=== PATIENT | male | born 1955 | race Asian ===

== ENCOUNTER 2017-01-12 06:38 | Emergency (ER) | payer OTHER ==
[2017-01-12 06:49] VITALS: TEMP 98.4; BMI 25.7
[2017-01-12] MEDS ORDERED: ALBUTEROL SO4 2.5/IPRATROPIUM 0.5 INH SOL 3 ML VIAL.NEB. NEB ONE ×2 (07:45→10:24)
[2017-01-12] MEDS ORDERED: methylPREDNISolone NA SUCC 125 MG/2 ML VIAL IVPB ONE (07:45)
--- NOTE | 2017-01-12 07:55 | PDOC ---
History of Present Illness - General Chief Complaint: Respiratory Stated Complaint: TROUBLE BREATHING Time Seen by Provider: 01/12/17 07:18 History Source: Patient Exam Limitations: No Limitations - History of Present Illness Initial Comments: 01/12/17 08:02 61-year-old male with increasing dry to moist cough for the past month associated with muscle skeletal pain to his mid back causing him difficulty to sleep at night. Patient states had seen a pattern drafter with a CAT scan done in November that showed bronchiolectasis vs pulmonary fibrosis and is currently under the care of a pattern drafter at [facility]. Patient states went last week and had a PFT and was placed on a new medication that states has actually increased his symptoms but continues to take the medication. Patient also states is pending a nebulizer machine from his pattern drafter but did not receive it yet from the pharmacy. Patient denies chest pain, shortness of breath of breath, hemoptysis, weight loss, night sweats, abdominal pain, nausea, lower extremity edema, fever or chills. Patient states history of diabetes and had a PE 2 years ago and stopped taking anticoagulation therapy 2015. Timing/Duration: reports: getting worse Severity: reports: moderate Possible Cause: Yes: occasional episodes Modifying Factors: improves with: coughing Associated Symptoms: reports: cough, shortness of breath (with exertion) Past History - Past Medical History Allergies/Adverse Reactions: Allergies Allergy/AdvReac Type Severity Reaction Status Date / Time enalapril Allergy Verified 01/12/17 06:48 metformin Allergy Verified 01/12/17 07:02 Home Medications: Ambulatory Orders Albuterol Sulfate Inhaler - [Ventolin Hfa Inhaler -] 2 inh PO Q6H 01/12/17 Calcium Carbonate/Vitamin D3 [Calcium 500 + Vit D 200 Caplet] 1 each PO DAILY Etanercept [Enbrel] 50 mg SQ WEEKLY 01/12/17 Fluticasone Propionate [Flovent Diskus] 110 mcg IH DAILY 01/12/17 Hydrochlorothiazide [Hctz -] 12.5 mg PO DAILY 01/12/17 Insulin Glargine,Hum.rec.anlog [Basaglar Kwikpen U-100] 25 unit SQ BID 01/12/17 Methylprednisolone [Medrol -] 4 mg PO DAILY 01/12/17 Metoprolol Succinate [Toprol Xl] 50 mg PO DAILY 01/12/17 Omeprazole 20 mg PO DAILY 01/12/17 Simvastatin [Zocor] 10 mg PO HS 01/12/17 Asthma: Yes Diabetes: Yes (type 2) GI Disorders: Yes (GERD,HERNIA) HTN: Yes Hypercholesterolemia: Yes Other medical history: PE in lung 2015 - Psycho/Social/Smoking Cessation Hx Suicidal Ideation: No Smoking History: Never smoked Have you smoked in the past 12 months: No Information on smoking cessation initiated: No Hx Alcohol Use: No Drug/Substance Use Hx: No Substance Use Type: None Patient Lives Alone: No Lives with/in: spouse/SO Respiratory Specific PMHX - Complaint Specific PMHX Pulmonary Embolus: Yes Review of Systems - Review of Systems Able to Perform ROS?: Yes Constitutional: No: Symptoms Reported HEENTM: No: Symptoms Reported Respiratory: Yes: Cough, SOB with Exertion. No: Wheezing Cardiac (ROS): No: Symptoms Reported ABD/GI: No: Symptoms Reported : No: Symptoms Reported Musculoskeletal: Yes: Back Pain (bilateral lower ribs) Neurological: No: Symptoms reported Hematologic/Lymphatic: No: Symptoms Reported *Physical Exam - Vital Signs Last Vital Signs Temp Pulse Resp BP Pulse Ox 98.4 F 90 18 168/74 100 01/12/17 06:47 01/12/17 06:47 01/12/17 06:47 01/12/17 06:47 01/12/17 06:50 - Physical Exam General Appearance: Yes: Nourished, Appropriately Dressed. No: Apparent Distress Neck: positive: Supple Respiratory/Chest: positive: Lungs Clear, Crackles (scattered on inspiration). negative: Chest Tender, Respiratory Distress, Accessory Muscle Use, Decreased Breath Sounds Cardiovascular: positive: Regular Rhythm, Regular Rate. negative: Murmur Gastrointestinal/Abdominal: positive: Soft. negative: Tenderness Extremity: positive: Normal Capillary Refill. negative: Pedal Edema Integumentary: positive: Normal Color, Warm, Moist Neurologic: positive: Motor Strength 5/5 (ambulatory) ED Treatment Course - LABORATORY CBC & Chemistry Diagram: 01/12/17 07:55 01/12/17 07:55 - RADIOLOGY Radiology Studies Ordered: Category Date Time Status CHEST X-RAY PORTABLE* [RAD] Stat Radiology 01/12/17 07:45 Ordered Medical Decision Making - Medical Decision Making 01/12/17 08:00 Patient with increasing cough over the past few days causing him difficulty sleeping. Patient with history of PE 2 years ago but recently diagnosed with pulmonary fibrosis based on CT and PFT findings. Patient states also has been worked up for TB, HIV and other communicable diseases which were negative. Patient states could not wait for his nebulizer machine this evening when is due to arrive from the pharmacy and decided come to the ER since he states is unable to sleep and has continual coughing. Patient currently on medication for the past week which he states has not improved his symptoms if anything has increased his coughing. Patient on exam had instant dry crackles scattered to bilateral lung ruiz patient on room air satting 97-100% with a heart rate of 79. Differential diagnosis includes pneumonia, CHF, ACS, and less likely PE. 01/12/17 10:24 Laboratory Tests 01/12/17 01/12/17 07:55 07:55 WBC 12.3 H Hgb 12.7 Hct 39.1 Plt Count 194 Sodium 137 Potassium 3.6 Chloride 103 Carbon Dioxide 25 Anion Gap 9 BUN 14 Creatinine 1.2 Random Glucose 299 H Calcium 8.3 L Magnesium 2.0 AST 25 ALT 36 Creatine Kinase 217 Creatine Kinase Index 1.8 CK-MB (CK-2) 3.967 H Troponin I < 0.02 B-Natriuretic Peptide 54.07 Albumin 3.1 L Patient states feeling much better after receiving this medication. Call placed to patient's pattern drafter. Patient disclosed that he is currently on day 2 of 7 of Cipro that was prescribed by his pattern drafter yesterday. Patient vitals remained stable. Patient ordered for second duo neb since he states is able expectorate the mucus much easier. Mucous color consistency is semi-thin and beige. 01/12/17 11:00 Case discussed the patient's pattern drafter Dr. Villanueva who recommended sputum culture along with teaching for Postural drainage. Order placed for sputum culture. Respiratory called for teaching. Patient will be discharged home to follow-up with his pattern drafter. Will repeat vitals *DC/Admit/Observation/Transfer Diagnosis at time of Disposition: Cough Bronchiectasis Qualifiers: Bronchiectasis type: with acute exacerbation Qualified Code(s): J47.1 - Bronchiectasis with (acute) exacerbation - Discharge Dispostion Disposition: HOME Condition at time of disposition: Improved - Referrals Referrals: Amy Kamara MD [Primary Care Provider] - Radha Villanueva MD [Non Staff, Medical] - - Patient Instructions Printed Discharge Instructions: DI for Cough -- Adult Additional Instructions: Please follow-up with your pattern drafter as discussed, continue your Cipro, and perform postural drainage exercises as demonstrated here in the emergency department by a respiratory therapist.
[2017-01-12] MEDS ORDERED: methylPREDNISolone NA SUCC 125 MG/2 ML VIAL ONE (08:02)
[2017-01-12 08:35] LABS: BASOPHIL 1.2 % (0-2.0); EOSINOPHIL 2.3 % (0-4.5); MCH 26.3 pg (25.7-33.7); MCHC 32.5 g/dl (32.0-35.9); MEAN CELL VOLUME 81.1 fl (80-96); NEUTROPHILS 65.5 % (42.8-82.8); PLATELET COUNT 194 K/MM3 (134-434); WHITE BLOOD COUNT 12.3 K/mm3 (4.0-10.0)
[2017-01-12 09:04] LABS: ALBUMIN 3.1 g/dl (3.4-5.0); ANION GAP 9 (8-16); BILIRUBIN,TOTAL 0.8 mg/dL (0.2-1.0); CALCIUM 8.3 mg/dL (8.5-10.1); CO2 25 mmol/L (21-32); CREATININE 1.2 mg/dL (0.7-1.3); GLUCOSE,RANDOM 299 mg/dL (74-106); SGOT/AST 25 U/L (15-37); SGPT/ALT 36 U/L (12-78); TOT PROT 6.6 g/dl (6.4-8.2)
[2017-01-12 09:07] LABS: ALK PHOS 63 U/L (45-117); TROPONIN I < 0.02 ng/ml (0.00-0.05)
--- NOTE | 2017-01-12 10:59 | PDOC ---
*Physical Exam - Vital Signs Last Vital Signs Temp Pulse Resp BP Pulse Ox 98.4 F 67 22 127/76 98 01/12/17 06:47 01/12/17 07:55 01/12/17 07:55 01/12/17 07:55 01/12/17 07:55 ED Treatment Course - LABORATORY CBC & Chemistry Diagram: 01/12/17 07:55 01/12/17 07:55 - ADDITIONAL ORDERS Additional order review: Laboratory Results 01/12/17 07:55 Sodium 137 Potassium 3.6 Chloride 103 Carbon Dioxide 25 Anion Gap 9 BUN 14 Creatinine 1.2 Creat Clearance w eGFR > 60 Random Glucose 299 H Calcium 8.3 L Magnesium 2.0 Total Bilirubin 0.8 AST 25 ALT 36 Alkaline Phosphatase 63 Creatine Kinase 217 Creatine Kinase Index 1.8 CK-MB (CK-2) 3.967 H Troponin I < 0.02 B-Natriuretic Peptide 54.07 Total Protein 6.6 Albumin 3.1 L 01/12/17 07:55 RBC 4.83 MCV 81.1 MCHC 32.5 RDW 15.0 MPV 10.0 Neutrophils % 65.5 Lymphocytes % 22.3 Monocytes % 8.7 Eosinophils % 2.3 Basophils % 1.2 - Medications Given in the ED: ED Medications Discontinued Medications Generic Name Dose Route Start Last Admin Trade Name Freq PRN Reason Stop Dose Admin Albuterol/Ipratropium 1 amp 01/12/17 07:45 01/12/17 07:55 Duoneb - NEB 01/12/17 07:46 1 amp ONCE ONE Administration Methylprednisolone Sodium Succinate 125 mg 01/12/17 07:45 01/12/17 08:03 Solu-Medrol - IVPB 01/12/17 07:46 125 mg ONCE ONE Administration Medical Decision Making - Medical Decision Making 01/12/17 10:57 Patient seen and evaluated with the nurse practitioner. I agree with the overall evaluation, assessment, and management with the following summary of visit: 61-year-old male with recently diagnosed pulmonary fibrosis presents with persisting cough. Vital signs normal, O2 sat 100% on room air. Chest x-ray shows no acute pathology, labs are within normal limits with only mild leukocytosis of 12.3 but normal differential. Symptoms improved after 2 nebs, disposition plan arranged with patient's distribution system operator.
[2017-01-12 12:45] VITALS: BP 105/73; PULSE 90
--- NOTE | 2017-01-12 14:39 | EKG ---
Test Reason : Blood Pressure : / mmHG Vent. Rate : 073 BPM Atrial Rate : 073 BPM P-R Int : 168 ms QRS Dur : 104 ms QT Int : 396 ms P-R-T Axes : 056 -54 -11 degrees QTc Int : 436 ms NORMAL SINUS RHYTHM LEFT ANTERIOR FASCICULAR BLOCK ABNORMAL ECG NO PREVIOUS ECGS AVAILABLE Confirmed by DARLENE WOODALL MD ([id number]) on 01/12/2017 2:39:03 PM Referred By: Confirmed By:DARLENE WOODALL MD
== END 2017-01-12 12:45 | disposition home or self-care (01) ==
LOC: JER 06:38
PROC: 3E0F7GC Introduction of Other Therapeutic Substance into Respiratory Tract, Via Natural or Artificial Opening (ICD-10-PCS; principal; 2017-01-12)
PROC: 3E033GC Introduction of Other Therapeutic Substance into Peripheral Vein, Percutaneous Approach (ICD-10-PCS; 2017-01-12)
DX: J47.1 Bronchiectasis with (acute) exacerbation (principal); R05 Cough; K21.9 Gastro-esophageal reflux disease without esophagitis; J45.909 Unspecified asthma, uncomplicated; I10 Essential (primary) hypertension; E78.00 Pure hypercholesterolemia, unspecified; E11.9 Type 2 diabetes mellitus without complications
CPT/HCPCS: 36415; 71010-TC; 80053; 82550; 82553; 83735; 83880; 84484; 85025; 87070; 87205; 93005; 93010; 94640; 96374; 99284-25

== ENCOUNTER 2018-04-27 11:27 | Observation (INO) | payer OTHER ==
--- NOTE | 2018-04-27 11:54 | PDOC ---
History of Present Illness - General Chief Complaint: Pain Stated Complaint: NECK PAIN Time Seen by Provider: 04/27/18 11:51 - History of Present Illness Initial Comments: Patient is a 63 yo M w/ a hx of RA on steroids, DM, pulmonary embolism (x2) ( 2014 and 03/17/2018) s/p sternotomy, GERD, HTN, HLD and hiatal hernia, who presents to the ED complaining of Severe R sided neck pain. The pain began last night at 5 PM while the patient was sitting down on a chair. It was mild at first but significantly worsened. Now in the ED the patient is in significant pain and screaming in the bed to make it go away. He denies any recent trauma. Denies recent fevers, chills or infections. Denies chest pain, SOB or difficulty breathing. Denies abdominal pain, denies urinary or bowel complaints. PCP: Kriss Fisher Social hx: Denies alcohol, cigarrettes, or illicit drug usage. Past History - Past Medical History Allergies/Adverse Reactions: Allergies Allergy/AdvReac Type Severity Reaction Status Date / Time enalapril Allergy Verified 04/27/18 11:44 metformin Allergy Verified 04/27/18 11:44 Home Medications: Ambulatory Orders Albuterol Sulfate Inhaler - [Ventolin Hfa Inhaler -] 1 - 2 inh PO BID 04/27/18 Aspirin 81 mg PO DAILY 04/27/18 Docusate Sodium [Colace] 100 mg PO BID 04/27/18 Fluticasone/Salmeterol [Advair 250-50 Diskus] 1 each IH BID 04/27/18 Insulin Lispro [Admelog] 22 unit SQ TID 04/27/18 Linaclotide [Linzess] 72 mcg PO DAILY 04/27/18 Methylprednisolone [Medrol -] 4 mg PO DAILY 04/27/18 Metoprolol Tartrate 25 mg PO BID 04/27/18 Omeprazole 40 mg PO DAILY 04/27/18 Warfarin Sodium 2.5 mg PO DAILY 04/27/18 Asthma: Yes CVA: No COPD: No Diabetes: Yes (type 2) GI Disorders: Yes (GERD,HERNIA) HTN: Yes Hypercholesterolemia: Yes - Suicide/Smoking/Psychosocial Hx Smoking History: Never smoked Have you smoked in the past 12 months: No Hx Alcohol Use: No Drug/Substance Use Hx: No Substance Use Type: None Review of Systems - Review of Systems Constitutional: Yes: Weakness. No: Fever, Unintentional Wgt. Loss HEENTM: No: Eye Pain, Blurred Vision, Recent change in vision, Double Vision, Nose Congestion, Difficulty Swallowing Respiratory: No: Cough, Orthopnea, Shortness of Breath, Wheezing Cardiac (ROS): No: Chest Pain, Edema, Lightheadedness, Syncope ABD/GI: No: Abdominal Distended, Constipated, Diarrhea, Difficulty Swallowing, Nausea, Vomiting : No: Burning, Dysuria, Frequency, Flank Pain Musculoskeletal: Yes: Back Pain, Muscle Pain, Neck Pain. No: Joint Swelling, Muscle Weakness Integumentary: No: Bruising, Change in Color, Pruritus, Rash Neurological: Yes: Weakness. No: Headache, Numbness, Paresthesia, Pre-Existing Deficit, Seizure, Tingling, Tremors, Unsteady Gait, Ataxia, Dizziness Psychiatric: No: Anxiety, Depression Endocrine: No: Excessive Sweating, Flushing, Intolerance to Cold Hematologic/Lymphatic: Yes: Anemia, Blood Clots, Easy Bleeding *Physical Exam - Vital Signs Last Vital Signs Temp Pulse Resp BP Pulse Ox 98.3 F 97 H 18 147/92 98 04/27/18 11:41 04/27/18 11:41 04/27/18 11:41 04/27/18 11:41 04/27/18 11:41 - Physical Exam General Appearance: Yes: Nourished, Appropriately Dressed, Apparent Distress, Severe Distress HEENT: positive: EOMI, BONNIE, Normal ENT Inspection, Normal Voice, Symmetrical. negative: Photophobia, Scleral Icterus (R), Scleral Icterus (L), Muffled/Hoarse voice, Pharyngeal Erythema, Tonsillar Exudate, Rhinorrhea Neck: positive: Tender, Trachea midline, Decreased range of motion, Tender lateral, Tender midline. negative: Lymphadenopathy (R), Lymphadenopathy (L) Respiratory/Chest: positive: Lungs Clear, Normal Breath Sounds. negative: Chest Tender, Respiratory Distress, Accessory Muscle Use Cardiovascular: positive: Regular Rhythm, Regular Rate, S1, S2. negative: Edema , JVD, Murmur Vascular Pulses: Dorsalis-Pedis (R): 1+, Doralis-Pedis (L): 1+ Gastrointestinal/Abdominal: positive: Normal Bowel Sounds, Soft. negative: Organomegaly, Distended, Guarding, Rebound Lymphatic: negative: Adenopathy Musculoskeletal: positive: Normal Inspection, Vertebral Tenderness ([place] axial TTP). negative: CVA Tenderness, Decreased Range of Motion Extremity: positive: Normal Capillary Refill, Normal Inspection, Normal Range of Motion Integumentary: positive: Normal Color, Dry, Warm. 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 negative: Abnormal Cranial NS, EOM Palsy, Facial Droop, Numbness, Sensory Deficit, Confused, Disoriented ED Treatment Course - LABORATORY CBC & Chemistry Diagram: 04/27/18 11:20 04/27/18 16:21 Medical Decision Making - Medical Decision Making Patient is a 63 yo M w/ a hx of RA on steroids, DM, pulmonary embolism (x2) ( 2014 and 03/17/2018) s/p sternotomy, GERD, HTN, HLD and hiatal hernia, who presents to the ED complaining of Severe R sided neck pain. He takes 40 Mg of steroids daily. Highest on DD is compression fraxture. Will get Stat head and cervical CT to assess for a compression fx. Plan: Cbc, cmp, head/neck, CT, morphine, re-assess. Head CT showed no signs of acute fracture. Oatient is requesting food to eat and more comfortable after morphine. The neck pain is more likely secondary to torticolis. Labs showed a significant hypokalemia of 2.8. We will repeat, replete, and admit to obs. *DC/Admit/Observation/Transfer Diagnosis at time of Disposition: Torticollis, Hypokalemia - Discharge Dispostion Condition at time of disposition: Stable Decision to Admit order: Yes - Referrals - Patient Instructions - Post Discharge Activity
[2018-04-27] MEDS ORDERED: morphine CARPU-JECT 4 MG/1 ML DISP.SYRIN IVPUSH ONE ×2 (12:11→16:08)
[2018-04-27] MEDS ORDERED: morphine SULFATE 4 MG/ML VIAL ONE ×2 (12:13→16:08)
--- NOTE | 2018-04-27 12:24 | PDOC ---
Attending Attestation - HPI HPI: Patient is a 63 year old male with PMHx of rheumatoid arthritis (4 mg Medrol daily) T2DM, HTN, asthma, multiple PEs , DVT- LT leg (on Coumadin), GERD, and HLD, who presents with chest and neck pain since yesterday. Patient states that around 5:00pm he was sitting on chair (denies prior exertion) when he began experiencing sudden-onset right-sided neck pain. He states that he took 2 Tylenol without relief. He states the pain significantly worsened today and has not radiated to the left side and back of his neck. He is currently in a hard cervical collar and is unable to turn his head without significant pain. He also reports intermittent chest pain. Patient denies recent shortness of breath, fever, weakness, acute numbness, tingling, or paresthesias. Surgical Hx: Thrombectomy (Mar 17 2018) s/p PE. PCP: Dr. Kriss Fisher <Shwetha Stock - Last Filed: 04/27/18 13:02> - Resident Resident Name: Dayo Jama - ED Attending Attestation I have performed the following: I have examined & evaluated the patient, The case was reviewed & discussed with the resident, I agree w/resident's findings & plan, Exceptions are as noted <Stanton Chavez - Last Filed: 05/04/18 16:59>
[2018-04-27 12:41] LABS: BASO % 1.2 % (0-2.0); EOS % 1.5 % (0-4.5); HEMATOCRIT 29.8 % (35.4-49); LYMPH % 10.6 % (8-40); MCH 23.5 pg (25.7-33.7); MCHC 30.3 g/dl (32.0-35.9); MEAN CELL VOLUME 77.3 fl (80-96); MEAN PLT VOLUME 6.8 fl (7.5-11.1); MONO % 8.8 % (3.8-10.2); NEUT % 77.9 % (42.8-82.8); PLATELET COUNT 580 K/MM3 (134-434); RBC 3.85 M/mm3 (4.00-5.60); RDW 16.5 % (11.9-15.9); WHITE BLOOD COUNT 13.3 K/mm3 (4.0-10.0)
[2018-04-27 12:58] LABS: ALBUMIN 3.4 g/dl (3.4-5.0); ALK PHOS 77 U/L (45-117); ANION GAP 11 MMOL/L (8-16); BILIRUBIN,TOTAL 0.6 mg/dL (0.2-1); BLOOD UREA NITROGEN 5 mg/dL (7-18); CALCIUM 8.4 mg/dL (8.5-10.1); CHLORIDE 110 mmol/L (98-107); CO2 19 mmol/L (21-32); CREATININE 0.9 mg/dL (0.55-1.3); GLUCOSE,RANDOM 72 mg/dL (74-106); SGOT/AST 32 U/L (15-37); SGPT/ALT 31 U/L (13-61); SODIUM 140 mmol/L (136-145); TOT PROT 7.4 g/dl (6.4-8.2)
[2018-04-27 13:02] LABS: POTASSIUM 2.7 mmol/L (3.5-5.1)
[2018-04-27] MEDS ORDERED: POTASSIUM CHLORIDE TABS 20 MEQ TABLET.ER (FP) PO ONE ×4 (13:03→16:09)
[2018-04-27] MEDS ORDERED: POTASSIUM CHLORIDE 20 MEQ PREMIX IVPB 100 ML IVPB ONE (13:51)
[2018-04-27] MEDS ORDERED: KCL 10 MEQ IVPB 20 MEQ/200 ML INFUS.BAG IVPB ONE (13:58)
[2018-04-27] MEDS ORDERED: diazePAM 2 MG TABLET PO ONE (14:44)
[2018-04-27] MEDS ORDERED: diazePAM 2 MG TABLET ONE (14:49)
[2018-04-27] MEDS ORDERED: ACETAMINOPHEN 325 MG TABLET (FP) PO PRN (15:34)
--- NOTE | 2018-04-27 15:43 | HP ---
CHIEF COMPLAINT: R sided neck pain PCP: Phillip HISTORY OF PRESENT ILLNESS: 63 year old male with a history of RA on steroids, diabetes, DVT (left leg) and PE x 2 (2014 and 03/17/18) s/p sternotomy, GERD, HTN, HLD, hiatal hernia, pancreatitis, presents ot the hospital for 1 day history of 10/10 right sided neck pain. Per patient and son, patient took a nap between 2pm and 5pm last night, and when he woke up he had excruciating, stabbing pain on the R side of his neck, being unable to flex, extend, move his head from side to side, or rotate in either direction. Reports that he has never had this pain in the past. Reports that it got worse since yesterday. Patient reports 3 loose stools yesterday he attributes to taking stool softeners. Denies chest pain, shortness of breath, nausea, vomiting, fevers, chills. Denies sick contacts or recent travel. Reports that his last colonoscopy was in 2014 with Ranulfo. ER course was notable for: (1) K 2.7 (2) Hgb 9 (3) WBC 13.3 (4) EKG NSR with LAD Recent Travel: denies PAST MEDICAL HISTORY: RA on steroids, diabetes, PE x 2 (2014 and 03/17/18) s/p sternotomy, GERD, HTN, HLD, hiatal hernia, pancreatitis PAST SURGICAL HISTORY: Sternotomy Social History: Smoking: denies Alcohol: denies Drugs: denies Family History: denies family history of cancer Allergies enalapril Allergy (Verified 04/27/18 11:44) metformin Allergy (Verified 04/27/18 11:44) HOME MEDICATIONS: Home Medications Medication Instructions Recorded Albuterol Sulfate Inhaler - 1 - 2 inh PO BID 04/27/18 [Ventolin Hfa Inhaler -] Aspirin 81 mg PO DAILY 04/27/18 Docusate Sodium [Colace] 100 mg PO BID 04/27/18 Fluticasone/Salmeterol [Advair 1 each IH BID 04/27/18 250-50 Diskus] Insulin Lispro [Admelog] 22 unit SQ TID 04/27/18 Linaclotide [Linzess] 72 mcg PO DAILY 04/27/18 Methylprednisolone [Medrol -] 4 mg PO DAILY 04/27/18 Metoprolol Tartrate 25 mg PO BID 04/27/18 Omeprazole 40 mg PO DAILY 04/27/18 Warfarin Sodium 2.5 mg PO DAILY 04/27/18 REVIEW OF SYSTEMS CONSTITUTIONAL: Absent: fever, chills, diaphoresis, generalized weakness, malaise, loss of appetite, weight change HEENT: Neck Pain Absent: rhinorrhea, nasal congestion, throat pain, throat swelling, difficulty swallowing, mouth swelling, ear pain, eye pain, visual changes CARDIOVASCULAR: Absent: chest pain, syncope, palpitations, irregular heart rate, lightheadedness , peripheral edema RESPIRATORY: Absent: cough, shortness of breath, dyspnea with exertion, orthopnea, wheezing, stridor, hemoptysis GASTROINTESTINAL: Absent: abdominal pain, abdominal distension, nausea, vomiting, diarrhea, constipation, melena, hematochezia GENITOURINARY: Absent: dysuria, frequency, urgency, hesitancy, hematuria, flank pain, genital pain MUSCULOSKELETAL: Absent: myalgia, arthralgia, joint swelling, back pain, neck pain SKIN: Absent: rash, itching, pallor HEMATOLOGIC/IMMUNOLOGIC: Absent: easy bleeding, easy bruising, lymphadenopathy, frequent infections ENDOCRINE: Absent: unexplained weight gain, unexplained weight loss, heat intolerance, cold intolerance NEUROLOGIC: Absent: headache, focal weakness or paresthesias, dizziness, unsteady gait, seizure, mental status changes, bladder or bowel incontinence PSYCHIATRIC: Absent: anxiety, depression, suicidal or homicidal ideation, hallucinations. PHYSICAL EXAMINATION Vital Signs - 24 hr 04/27/18 04/27/18 11:41 15:41 Temperature 98.3 F 99.4 F Pulse Rate 97 H Pulse Rate [ 98 H Apical] Respiratory 18 20 Rate Blood Pressure 147/92 Blood Pressure 140/74 [Right] O2 Sat by Pulse 98 98 Oximetry (%) GENERAL: A&Ox3, mild distress EYES: PERRLA, EOMI ENT: Moist mucus membranes NECK: No JVD, patient has restricted range of motion of his neck in flexion, extension, and rotation, restricted due to pain. Majority of the ROM is restricted in rotation. LUNGS: R sided crackles, no wheezes, Sternotomy scar present HEART: RRR, no murmurs ABDOMEN: Soft, nontender, BS present MUSCULOSKELETAL: No CVA Tenderness EXTREMITIES: 2+ pulses, 1+ edema NEUROLOGICAL: Cranial nerves II-XII intact. Laboratory Results - last 24 hr 04/27/18 04/27/18 11:20 11:20 WBC 13.3 H RBC 3.85 L Hgb 9.0 L Hct 29.8 L MCV 77.3 L MCH 23.5 L D MCHC 30.3 L RDW 16.5 H Plt Count 580 H D MPV 6.8 L Absolute Neuts (auto) 10.3 H Neutrophils % 77.9 Lymphocytes % 10.6 D Monocytes % 8.8 Eosinophils % 1.5 Basophils % 1.2 Nucleated RBC % 0 Sodium 140 Potassium 2.7 L* Chloride 110 H Carbon Dioxide 19 L Anion Gap 11 BUN 5 L Creatinine 0.9 Creat Clearance w eGFR > 60 Random Glucose 72 L Calcium 8.4 L Magnesium 2.0 Total Bilirubin 0.6 AST 32 ALT 31 Alkaline Phosphatase 77 Total Protein 7.4 Albumin 3.4 ASSESSMENT/PLAN: 63 year old male with a history of RA on steroids, diabetes, DVT (left leg) and PE x 2 (2014 and 03/17/18) s/p sternotomy, GERD, HTN, HLD, hiatal hernia, pancreatitis presented to the hospital for R sided neck pain #R sided neck pain: could be related to muscle spasm/torticollis -flexeril 5mg PO TID -morphine 2mg PRN -physical therapy #Hypokalemia: initial potassium was 2.7, repeat K 4.0 -give 40mEQ -EKG NSR LAD #Anemia: Hgb 9.0 -stool for occult blood -last colo 2014 -likely iron deficiency vs chronic inflammation -INR level #RA: controlled -continue methylprenisolone #HTN: stable, 140/74 -resume metoprolol 25 BID #PE: s/p open thrombectomy, stable -continue warfarin 2.5 -measure INR #FEN -LR @ 83cc/hr 1 bag -diabetic diet -replete potassium #Prophylaxis -on coumadin 2.5 #Disposition -admit obs Visit type - Emergency Visit Emergency Visit: Yes ED Registration Date: 04/27/18 Care time: The patient presented to the Emergency Department on the above date and was hospitalized for further evaluation of their emergent condition. - New Patient This patient is new to me today: Yes Date on this admission: 04/27/18 - Critical Care Critical Care patient: No
[2018-04-27] MEDS ORDERED: ENOXAPARIN NA (PORCINE) 40 MG/0.4 ML DISP.SYRIN SQ SCH (15:45)
[2018-04-27] MEDS ORDERED: LACTATED RINGERS SOLUTION 1,000 ML IV SCH (15:45)
[2018-04-27] MEDS ORDERED: KCL 10 MEQ IVPB 10 MEQ/100 ML INFUS.BAG IVPB ONE ×5 (16:07→21:31)
[2018-04-27] MEDS ORDERED: morphine SULFATE 4 MG/ML VIAL IVPUSH ONE (16:08)
[2018-04-27] MEDS ORDERED: CYCLOBENZAPRINE HCL 10 MG TABLET (FP) ONE ×2 (16:38→20:40)
[2018-04-27] MEDS ORDERED: INSULIN (NOVOLOG) ASPART 100 UNITS/ML 10ML VIAL ONE ×2 (16:39→22:17)
[2018-04-27] MEDS: CYCLOBENZAPRINE HCL 5 MG TABLET PO SCH ×2 (16:41→21:06)
[2018-04-27 16:53] LABS: PROTHROMBIN TIME (PATIENT) 55.4 SEC (9.7-13.0)
[2018-04-27 16:57] LABS: ANION GAP 9 MMOL/L (8-16); BLOOD UREA NITROGEN 5 mg/dL (7-18); CALCIUM 8.4 mg/dL (8.5-10.1); CHLORIDE 105 mmol/L (98-107); CO2 21 mmol/L (21-32); CREATININE 0.9 mg/dL (0.55-1.3); GLUCOSE,RANDOM 211 mg/dL (74-106); SODIUM 135 mmol/L (136-145)
[2018-04-27] MEDS ORDERED: ALBUTEROL SO4 8 GM HFA INHALER IH PRN ×2 (16:59)
--- NOTE | 2018-04-27 17:05 | PN ---
Teaching Attending Note Name of Resident: Gopal Rosenbaum ATTENDING PHYSICIAN STATEMENT I saw and evaluated the patient. I reviewed the resident's note and discussed the case with the resident. I agree with the resident's findings and plan as documented. SUBJECTIVE:63yo M with PMH RA on steroids, DM, HTN, hiatal hernia, Recent PE on coumadin presented to the ER with sudden onset of R sided neck pain. started suddenly when getting out of chair. assoc with limited ROM. pain is limited to the neck and not radiating. relieved with muscle relaxer given in the ER. also reports he was constipated for several days and tooks some stool softeners and had several loose BM yesterday. denies CP, SOB, fever, chills, cough, hemoptysis , N/V/C/D OBJECTIVE: Last Vital Signs Temp Pulse Resp BP Pulse Ox 99.4 F 98 H 20 140/74 98 04/27/18 15:41 04/27/18 15:41 04/27/18 15:41 04/27/18 15:41 04/27/18 15:41 General NAD HEENT bone point tenderness in cervical spine. muscle point tenderness over the R side of neck. refused to move the neck side to side or ear to shoulder. no LN noted. no deformity, short neck, no tenderness to L side of neck CV S1 S2 RRR no murmur/rub/gallop Lungs CTA B/L no wheezing/rales/rhonchi Abdomen soft NT/ND Extremities strength equal in proximal and distal RUE. sensation intact. pulse intact. full ROM of the R shoulder. no pedal edema ASSESSMENT AND PLAN: 63yo M with PMH RA on steroids, DM, HTN, hiatal hernia, Recent PE on coumadin presented to the ER with sudden onset of R sided neck pain. 1. Intractable neck pain- medicine observation. appears to be more muscular. Imaging shows c5-C6 DJD with mild disc bulge. with no neurological deficits. start flexeril. cont with pain control prn. PT eval. would benefit from PT as outpatient and if does not improve can consider f/u [facility] neurosurg as outpatient for possible surgery 2. Hypokalemia- likely due to diarrhea. repleted in the ER. now normal 3. Supratherpeutic INR- no recent dose change or diet change. hold coumadin repeat in am. no bleeding 4. NAGMA- due to diarrhea. resolved after some LR 1L 5. Leukocytosis- due to steroids. no signs of active infection. no indication for abx 6. RA on steroids- cont home medication 7. DM- cont home medication 8. HTN- cont home medication 9. PE- hold coumadin. repeat INR in AM 10. DVT ppx- elevated INR 11. spoke with son present at bedside. all questions answered. verbalized agreement with plan
[2018-04-27 17:13] LABS: INR 4.62 (0.83-1.09)
[2018-04-27] MEDS: INSULIN SLIDING SCALE (NOVOLOG) 1 VIAL SQ SCH ×3 (17:34→22:10)
[2018-04-27] MEDS ORDERED: METOPROLOL TARTRATE 25 MG TABLET (FP) ONE (20:40)
[2018-04-27] MEDS ORDERED: MORPHINE SULFATE 2 MG/ML VIAL ONE (20:40)
[2018-04-27] MEDS: METOPROLOL TARTRATE 25 MG TABLET (FP) PO SCH (21:06)
[2018-04-27] MEDS: MORPHINE SULFATE 2 MG/ML VIAL IVPUSH PRN (21:06)
[2018-04-27] MEDS: POTASSIUM CHLORIDE 10 MEQ PREMIX IVPB (POTASSIUM RIDER) IVPB SCH ×2 (21:45→23:40)
[2018-04-27] MEDS ORDERED: ALBUTEROL SO4 8 GM HFA INHALER IH SCH (22:00)
[2018-04-27 22:29] LABS: ANION GAP 9 MMOL/L (8-16); BLOOD UREA NITROGEN 5 mg/dL (7-18); CALCIUM 7.9 mg/dL (8.5-10.1); CHLORIDE 107 mmol/L (98-107); CO2 17 mmol/L (21-32); GLUCOSE,RANDOM 280 mg/dL (74-106); POTASSIUM 4.9 mmol/L (3.5-5.1); SODIUM 132 mmol/L (136-145)
[2018-04-28] MEDS: MORPHINE SULFATE 2 MG/ML VIAL IVPUSH PRN ×3 (01:06→12:08)
[2018-04-28 01:36] VITALS: BMI 25.0
[2018-04-28] MEDS: INSULIN SLIDING SCALE (NOVOLOG) 1 VIAL SQ SCH ×3 (06:11→17:20)
[2018-04-28] MEDS: CYCLOBENZAPRINE HCL 5 MG TABLET PO SCH ×2 (06:16→13:01)
[2018-04-28 06:42] LABS: HEMATOCRIT 26.3 % (35.4-49); HEMOGLOBIN 8.2 GM/dL (11.7-16.9); MCHC 31.1 g/dl (32.0-35.9); MEAN CELL VOLUME 77.1 fl (80-96); MEAN PLT VOLUME 7.1 fl (7.5-11.1); PLATELET COUNT 489 K/MM3 (134-434); RBC 3.41 M/mm3 (4.00-5.60); RDW 17.2 % (11.9-15.9); WHITE BLOOD COUNT 12.9 K/mm3 (4.0-10.0)
[2018-04-28] MEDS ORDERED: PT OWN MED DRAWER 7, Y5N ONE ×5 (07:00→12:51)
[2018-04-28 07:02] LABS: PROTHROMBIN TIME (PATIENT) 62.8 SEC (9.7-13.0)
[2018-04-28 07:09] LABS: INR 5.23 (0.83-1.09)
[2018-04-28 07:10] LABS: ANION GAP 10 MMOL/L (8-16); BLOOD UREA NITROGEN 5 mg/dL (7-18); CALCIUM 8.2 mg/dL (8.5-10.1); CHLORIDE 102 mmol/L (98-107); CO2 20 mmol/L (21-32); CREATININE 0.7 mg/dL (0.55-1.3); GLUCOSE,RANDOM 209 mg/dL (74-106); MAGNESIUM 1.8 mg/dL (1.8-2.4); POTASSIUM 4.3 mmol/L (3.5-5.1); SODIUM 132 mmol/L (136-145)
[2018-04-28] MEDS: METOPROLOL TARTRATE 25 MG TABLET (FP) PO SCH (09:52)
[2018-04-28] MEDS ORDERED: PANTOPRAZOLE 40 MG TABLET (FP) PO SCH (10:00)
[2018-04-28] MEDS ORDERED: PATIENT'S OWN MEDICATION (NON-FORMULARY) (Linaclotide [Linzess] 72 MCG) PO SCH (10:00)
[2018-04-28] MEDS ORDERED: ASPIRIN 81 MG CHEWABLE TABLETS PO SCH (10:00)
[2018-04-28] MEDS ORDERED: methylPREDNISolone 4 MG TABLET PO SCH (10:00)
--- NOTE | 2018-04-28 12:56 | PN ---
Teaching Attending Note Name of Resident: Kimberley Horton ATTENDING PHYSICIAN STATEMENT I saw and evaluated the patient. I reviewed the resident's note and discussed the case with the resident. I agree with the resident's findings and plan as documented. SUBJECTIVE:states pain and movement of his head has improved but still restricted. denies Cp, SOB, fever, chills, numbness/tingling of the arms. states hes been on steady dose of coumadin for several weeks. he did take his medication yesterday. OBJECTIVE: Last Vital Signs Temp Pulse Resp BP Pulse Ox 98.8 F 97 H 20 128/68 97 04/28/18 10:00 04/28/18 10:00 04/28/18 10:00 04/28/18 10:00 04/28/18 10:00 General NAD HEENT bone point tenderness in cervical spine. muscle spasm along the R side of his neck. improved active movement of turning his head from side to side, still restricted more to the R then L. good ROM looking up/down. Extremities strength equal in proximal and distal RUE. sensation intact. pulse intact. ASSESSMENT AND PLAN: 63yo M with PMH RA on steroids, DM, HTN, hiatal hernia, Recent PE on coumadin presented to the ER with sudden onset of R sided neck pain. 1. Intractable neck pain-clinically improved but remains restricted. will increase flexeril to 10mg and re-evaluate to see if improved with higher dose. if no improvement can attempt alternative muscle relaxer. assess with PT. would benefit from PT as outpatient and if does not improve can consider f/u [facility] neurosurg as outpatient for possible surgery 2. Hypokalemia- likely due to diarrhea. resolved 3. Supratherpeutic INR- no recent dose change or diet change. did take his coumadin at home yesterday. will hold for now and trend INR. can re-start coumadin at lower dose once <3. 4. NAGMA- due to diarrhea. resolved 5. Leukocytosis- due to steroids. no signs of active infection. no indication for abx 6. RA on steroids- cont home medication 7. DM- cont home medication 8. HTN- cont home medication 9. PE- hold coumadin. 10. DVT ppx- elevated INR 11. possible D/c later today pending pain control and movement with PT
[2018-04-28] MEDS ORDERED: traMADol HCL 50 MG TABLET PO PRN (13:17)
[2018-04-28 13:20] LABS: PROTHROMBIN TIME (PATIENT) 54.8 SEC (9.7-13.0)
[2018-04-28 13:22] LABS: INR 4.57 (0.83-1.09)
[2018-04-28] MEDS ORDERED: guaiFENesin 200 MG/10 ML 10 ML UNIT-DOSE CUPS PO PRN (13:28)
[2018-04-28] MEDS ORDERED: CYCLOBENZAPRINE HCL 10 MG TABLET (FP) PO ONE (14:00)
[2018-04-28 14:45] VITALS: BP 113/61; PULSE 88; TEMP 98.9
--- NOTE | 2018-04-28 17:50 | DS ---
Physical Exam: SUBJECTIVE: Patient seen and examined at bedside this morning. Patient still reports of neck pain with slight improvement. OBJECTIVE: Vital Signs Period Temp Pulse Resp BP Sys/Dawson Pulse Ox Last 24 Hr 98.8 F-100.1 F 88-105 16-20 113-150/61-77 96-98 PHYSICAL EXAM GENERAL: The patient is awake, alert, and fully oriented, restricting to move his head. HEAD: Normal with no signs of trauma. EYES: PERRLA, EOMI, sclera anicteric, conjunctiva clear. LUNGS: Breath sounds equal, clear to auscultation bilaterally. HEART: Regular rate and rhythm, S1, S2 without murmur, rub or gallop. ABDOMEN: Soft, nontender, nondistended, normoactive bowel sounds. EXTREMITIES: 2+ pulses, warm, well-perfused, +1 edema. NEUROLOGICAL: Cranial nerves II through XII grossly intact. Normal speech, gait not observed. Neck ROM: limited lateral rotation, flexion and extension. 5/5 motor strength, sensation intact. PSYCH: Normal mood, normal affect. SKIN: Warm, dry, normal turgor, no rashes or lesions noted. LABS Laboratory Results - last 24 hr 04/27/18 04/27/18 04/27/18 15:54 21:10 21:53 WBC RBC Hgb Hct MCV MCH MCHC RDW Plt Count MPV PT with INR INR Sodium 132 L Potassium 4.9 Chloride 107 Carbon Dioxide 17 L Anion Gap 9 BUN 5 L Creatinine 1.0 Creat Clearance w eGFR > 60 POC Glucometer [phone] Random Glucose 280 H Calcium 7.9 L Phosphorus Magnesium 04/28/18 04/28/18 04/28/18 06:00 06:00 06:00 WBC 12.9 H RBC 3.41 L Hgb 8.2 L Hct 26.3 L MCV 77.1 L MCH 24.0 L MCHC 31.1 L RDW 17.2 H Plt Count 489 H MPV 7.1 L PT with INR 62.80 H INR 5.23 H* Sodium 132 L Potassium 4.3 Chloride 102 Carbon Dioxide 20 L Anion Gap 10 BUN 5 L Creatinine 0.7 Creat Clearance w eGFR > 60 POC Glucometer Random Glucose 209 H Calcium 8.2 L Phosphorus 3.0 Magnesium 1.8 04/28/18 04/28/18 04/28/18 06:00 11:22 12:35 WBC RBC Hgb Hct MCV MCH MCHC RDW Plt Count MPV PT with INR 54.80 H INR 4.57 H* Sodium Potassium Chloride Carbon Dioxide Anion Gap BUN Creatinine Creat Clearance w eGFR POC Glucometer 229 357 Random Glucose Calcium Phosphorus Magnesium 04/28/18 16:13 WBC RBC Hgb Hct MCV MCH MCHC RDW Plt Count MPV PT with INR INR Sodium Potassium Chloride Carbon Dioxide Anion Gap BUN Creatinine Creat Clearance w eGFR POC Glucometer 276 Random Glucose Calcium Phosphorus Magnesium Imaging: Head CT - Mild volume loss. No gross evidence of a focal intracranial lesion or hemorrhage is seen. Cervical spine CT - Straightening of the cervical spine. No gross fracture or subluxation identified. C5-C6 mild degenerative disc disease with mild disc bulge, right paracentral posterior spur formation and bilateral uncovertebral hypertrophy bridging right C6 nerve root and reaching the left. Chest xray - Single apical lordotic view reveals clear lungs, large heart, sternal sutures, normal aorta, and normal lionel. The angles are sharp. The bones and soft tissues are intact. HOSPITAL COURSE: Date of Admission:04/27/18 Date of Discharge: 04/28/18 Patient is a 63 year old male with past medicalt history of RA, DM, DVT (left leg) and PE s/p sternotomy, GERN, HTN, HLD, Hiatal hernia and pancreatitis, presented with sudden onset right-sided neck pain for 1 day. Patient was admitted for observation, neck pain likely related to muscle spasm or torticollis. Flexeril 5mg TID was started and was increased to 10mg TID, which patient noted more improvement. Tramadol was also given as needed. At the ED, patient was hypokalemic at 2.7 with no EKG changes. 40meq KCl given and potassium normalized. Patient was also noted to have supratherapeutic INR. Coumadin was held and INR trended. Patient was discharged with instructions to have physical therapy as outpatient and to follow-up with PCP to have his INR checked before taking the coumadin. Minutes to complete discharge: 40 Discharge Summary Reason For Visit: TORTICOLLIS, HYPOKALEMIA Current Active Problems Torticollis (Acute) Condition: Stable - Instructions Diet, Activity, Other Instructions: You came here because you were complaining of severe neck pain. This is probably caused by spasms of the muscles of your neck from an awkward position. You were given some medications that would help relax the muscles in your neck. Physical therapy is also recommended.You were also admitted because your potassium was noted to be low. This would have been probably caused by having loose bowels from the stool softeners. You were given some potassium supplements and the levels normalized. Your INR (how thin your blood is) was noted to be high. Your coumadin was put on hold while we monitor the INR. It is important that you have close follow-up with your primary care doctor for monitoring of INR while you are on coumadin. You are at an increased risk of bleeding and bruising so be careful with falls, shaving, and bumping into objects. Medications: You will be given a muscle relaxant (Flexeril) to help with your neck pain. Please do not use this medication and drive or operate heavy equipment as this can make you sleepy Please stop taking your Coumadin until you get it rechecked in 2 days at your primary care physician's office Please continue the rest of your home medications as is Follow-up: Please follow-up with your primary care physician in 2 days and make sure to have your blood thinning levels assessed ("INR LEVEL"). Your primary care physician will guide you on when to restart your Coumadin Please follow-up with physical therapy for your neck pain. A referral has been given to you which you can give to any physical therapist you would like Continue your home medications as prescribed. Call 911 or go to the ED if with any worsening fever, chills, shortness of breath, chest pain or any new concerns noted. Referrals: Kriss Fisher [Primary Care Provider] - Disposition: HOME - Home Medications Comprehensive Discharge Medication List: Ambulatory Orders Albuterol Sulfate Inhaler - [Ventolin HFA Inhaler -] 1 - 2 inh PO BID 04/27/18 Aspirin 81 mg PO DAILY 04/27/18 Docusate Sodium [Colace] 100 mg PO BID 04/27/18 Fluticasone/Salmeterol [Advair 250-50 Diskus] 1 each IH BID 04/27/18 Insulin Lispro [Admelog] 22 unit SQ TID 04/27/18 Methylprednisolone [Medrol -] 4 mg PO DAILY 04/27/18 Metoprolol Tartrate 25 mg PO BID 04/27/18 Omeprazole 40 mg PO DAILY 04/27/18 Calcium Citrate/Vitamin D2 [Scott-Citrate Plus Vitamin D Tab] 1 each PO DAILY 11/10 Cyclobenzaprine HCl 10 mg PO TID #10 tablet 04/28/18 Fluticasone Prop 0.05% Nasal [Flonase -] 1 - 2 spray NS DAILY 04/28/18 Glimepiride 4 mg PO DAILY 04/28/18 Miscellaneous Medical Supply [Outpatient Order] 1 each ASDIR #1 misc Miscellaneous Medical Supply [Outpatient Order] 1 each ASDIR #1 misc Pravastatin Sodium 10 mg PO HS 04/28/18 traMADol HCL [Ultram -] 50 mg PO Q6H PRN #12 tablet MDD 200 mg 04/28/18 This patient is new to me today: Yes Date on this admission: 04/30/18 Emergency Visit: Yes ED Registration Date: 04/27/18 Care time: The patient presented to the Emergency Department on the above date and was hospitalized for further evaluation of their emergent condition. Critical Care patient: No - Discharge Referral Referred to [facility] No
[2018-04-28] MEDS ORDERED: WARFARIN NA 2.5 MG TABLET (FP) PO SCH (18:00)
--- NOTE | 2018-04-28 22:07 | EKG ---
Test Reason : Blood Pressure : / mmHG Vent. Rate : 098 BPM Atrial Rate : 098 BPM P-R Int : 168 ms QRS Dur : 098 ms QT Int : 348 ms P-R-T Axes : 032 -40 053 degrees QTc Int : 444 ms POOR DATA QUALITY, INTERPRETATION MAY BE ADVERSELY AFFECTED NORMAL SINUS RHYTHM LEFT AXIS DEVIATION NONSPECIFIC ST AND T WAVE ABNORMALITY ABNORMAL ECG WHEN COMPARED WITH ECG OF 02-APR-2018 15:30, NONSPECIFIC T WAVE ABNORMALITY HAS REPLACED INVERTED T WAVES IN ANTERIOR LEADS Confirmed by FAITH MCNAIR MD ([id number]) on 04/28/2018 10:07:04 PM Referred By: Confirmed By:FAITH MCNAIR MD
== END 2018-04-28 19:23 | disposition home or self-care (01) ==
LOC: JER 11:27 → JERBED 15:13 → J4S 22:47
PROVIDERS: ADMIT Internal Medicine; ATTEND Internal Medicine
PROC: 3E033NZ Introduction of Analgesics, Hypnotics, Sedatives into Peripheral Vein, Percutaneous Approach (ICD-10-PCS; principal; 2018-04-27)
PROC: 3E033GC Introduction of Other Therapeutic Substance into Peripheral Vein, Percutaneous Approach (ICD-10-PCS; 2018-04-27)
PROC: 3E0337Z Introduction of Electrolytic and Water Balance Substance into Peripheral Vein, Percutaneous Approach (ICD-10-PCS; 2018-04-27)
PROC: 3E013VG Introduction of Insulin into Subcutaneous Tissue, Percutaneous Approach (ICD-10-PCS; 2018-04-27)
DX: M43.6 Torticollis (principal); E87.6 Hypokalemia; I10 Essential (primary) hypertension; E11.9 Type 2 diabetes mellitus without complications; E78.5 Hyperlipidemia, unspecified; M06.9 Rheumatoid arthritis, unspecified; K21.9 Gastro-esophageal reflux disease without esophagitis; J45.909 Unspecified asthma, uncomplicated; K44.9 Diaphragmatic hernia without obstruction or gangrene; D64.9 Anemia, unspecified; D72.829 Elevated white blood cell count, unspecified; Z79.82 Long term (current) use of aspirin; Z79.01 Long term (current) use of anticoagulants; Z79.4 Long term (current) use of insulin; Z88.8 Allergy status to other drugs, medicaments and biological substances; Z86.711 Personal history of pulmonary embolism; Z86.718 Personal history of other venous thrombosis and embolism
CPT/HCPCS: 36415; 70450-TC; 71045-TC-FY; 72125-TC; 80048; 80053; 82272; 82962; 83735; 84100; 85025; 85027; 85610; 93005; 93010; 96372; 96374; 96375; 96376; 99285-25; G0378

== ENCOUNTER 2018-06-07 12:45 | Emergency (ER) | payer OTHER ==
[2018-06-07 13:21] VITALS: BP 116/58; PULSE 85; TEMP 97.9; BMI 27.5
--- NOTE | 2018-06-07 14:15 | PDOC ---
History of Present Illness - General Chief Complaint: Pain, Acute Stated Complaint: PAIN,RT KNEE/LT FOOT Time Seen by Provider: 06/07/18 13:58 - History of Present Illness Initial Comments: 06/07/18 14:08 63-year-old male with multiple comorbidities including rheumatoid arthritis presents for evaluation of atraumatic onset of right knee pain and left foot pain 2 days no systemic symptoms Past History - Past Medical History Allergies/Adverse Reactions: Allergies Allergy/AdvReac Type Severity Reaction Status Date / Time enalapril Allergy Verified 04/27/18 11:44 metformin Allergy Verified 04/27/18 11:44 Home Medications: Ambulatory Orders Albuterol Sulfate Inhaler - [Ventolin HFA Inhaler -] 1 - 2 inh PO BID 04/27/18 Aspirin 81 mg PO DAILY 04/27/18 Docusate Sodium [Colace] 100 mg PO BID 04/27/18 Fluticasone/Salmeterol [Advair 250-50 Diskus] 1 each IH BID 04/27/18 Insulin Lispro [Admelog] 22 unit SQ TID 04/27/18 Methylprednisolone [Medrol -] 4 mg PO DAILY 04/27/18 Metoprolol Tartrate 25 mg PO BID 04/27/18 Omeprazole 40 mg PO DAILY 04/27/18 Calcium Citrate/Vitamin D2 [Scott-Citrate Plus Vitamin D Tab] 1 each PO DAILY 11/10 Cyclobenzaprine HCl 10 mg PO TID #10 tablet 04/28/18 Fluticasone Prop 0.05% Nasal [Flonase -] 1 - 2 spray NS DAILY 04/28/18 Glimepiride 4 mg PO DAILY 04/28/18 Miscellaneous Medical Supply [Outpatient Order] 1 each ASDIR #1 misc Miscellaneous Medical Supply [Outpatient Order] 1 each ASDIR #1 misc Pravastatin Sodium 10 mg PO HS 04/28/18 traMADol HCL [Ultram -] 50 mg PO Q6H PRN #12 tablet MDD 200 mg 04/28/18 Asthma: Yes Cancer: No Cardiac Disorders: No CVA: No COPD: No CHF: No Dementia: No Diabetes: Yes (type 2) GI Disorders: Yes (GERD,HERNIA) HTN: Yes Hypercholesterolemia: Yes Seizures: No - Surgical History Lung Surgery: (STERNOTOMY) - Immunization History Immunization Up to Date: Yes - Suicide/Smoking/Psychosocial Hx Smoking History: Never smoked Have you smoked in the past 12 months: No Information on smoking cessation initiated: No Hx Alcohol Use: No Drug/Substance Use Hx: No Substance Use Type: None Hx Substance Use Treatment: No Review of Systems - Review of Systems Constitutional: No: Fever, Malaise, Night Sweats Musculoskeletal: Yes: See HPI, Joint Pain *Physical Exam - Vital Signs Last Vital Signs Temp Pulse Resp BP Pulse Ox 97.9 F 85 16 116/58 L 99 06/07/18 13:01 06/07/18 13:01 06/07/18 13:01 06/07/18 13:01 06/07/18 13:01 - Physical Exam Comments: 06/07/18 14:08 Right knee skin color and temperature are normal there is no appreciable effusion extensor mechanism is intact no pain with passive motion 0-90. Mild crepitation no instability buying calf are soft and nontender there are no gross sensorimotor deficits is neurovascular intact Left foot skin color and temperature are normal range of motion is full all the toes as well as the ankle. There is tenderness about the second third metatarsal heads no gross sensorimotor deficits neurovascular intact Medical Decision Making - Medical Decision Making 06/07/18 14:15 This is an exacerbation of rheumatoid disease patient is on prednisone at this point as well as, oral I will have him follow-up with his c programmer *DC/Admit/Observation/Transfer Diagnosis at time of Disposition: Arthritis - Discharge Dispostion Disposition: HOME Condition at time of disposition: Stable Decision to Admit order: No - Referrals Referrals: Rod Boss [Primary Care Provider] - - Patient Instructions Additional Instructions: Continue your regularly scheduled medications follow-up with her c programmer as scheduled return to the emergency room should symptoms worsen - Post Discharge Activity
== END 2018-06-07 14:48 | disposition home or self-care (01) ==
LOC: JERFT 12:45
DX: M06.861 Other specified rheumatoid arthritis, right knee (principal); M06.872 Other specified rheumatoid arthritis, left ankle and foot; I10 Essential (primary) hypertension; E11.9 Type 2 diabetes mellitus without complications; Z79.84 Long term (current) use of oral hypoglycemic drugs; E78.00 Pure hypercholesterolemia, unspecified; J45.909 Unspecified asthma, uncomplicated; Z87.19 Personal history of other diseases of the digestive system
CPT/HCPCS: 99281-25

== ENCOUNTER 2018-08-21 10:32 | Emergency (ER) | payer OTHER ==
[2018-08-21 10:51] VITALS: BP 115/65; PULSE 72; TEMP 97.6; BMI 23.1
--- NOTE | 2018-08-21 11:32 | PDOC ---
Attending Attestation - Resident Resident Name: Gerhard Lynn - ED Attending Attestation I have performed the following: I have examined & evaluated the patient, The case was reviewed & discussed with the resident, I agree w/resident's findings & plan, Exceptions are as noted - HPI HPI: 08/21/18 13:05 The patient is a 63 year old male with a significant past medical history of DM , RA, DVT and PE on Coumadin s/p sternotomy, HLD, HTN, hiatal hernia, pancreatitis who presents to the ED (instructed by PCP) for high level INR. The patient states his recent INR yesterday level was greater than 6. The patient states he otherwise feels well and denies any other complaints. He denies any bleeding. Denies dark or bloody stool, blood in urine. The patient denies chest pain, shortness of breath, headache and dizziness. Denies fever, chills, nausea, vomit, diarrhea and constipation. Denies dysuria, frequency, urgency and hematuria. Allergies: enalapril - Physicial Exam PE: 08/21/18 13:06 agree with resident exam - Medical Decision Making 08/21/18 13:06 63yo M MMP including PE on coumadin who presents to the ED with supratherapeutic INR. Pt asymptomatic. Vitals wnl. Exam wnl. INR here 6.3. Hgb 9.1 (was 8.2 on last CBC in our EMR). Plan for pt to skip coumadin tonight and will give low dose of Vitamin K 2.5mg. Multiple attempts by Dr. Lynn and myself to speak with pt's PMD Dr. Boss, however covering physician stated they don't know the pt. Pt expresses understanding of our plan to skip coumadin tonight and will call Dr. Boss tomorrow for f/u. I discussed the physical exam findings, ancillary test results and final diagnoses with the patient. I answered all of the patient's questions. The patient was satisfied with the care received and felt comfortable with the discharge plan and treatment plan. The patient will call their primary care physician within 24 hours to arrange follow-up and will return to the Emergency Department with any new, persistent or worsening symptoms. *DC/Admit/Observation/Transfer Diagnosis at time of Disposition: Supratherapeutic INR - Discharge Dispostion Disposition: HOME Condition at time of disposition: Stable - Referrals Referrals: Rod Boss [Primary Care Provider] - - Patient Instructions Printed Discharge Instructions: DI for Warfarin Therapy Additional Instructions: As discussed, do NOT take your coumadin dose tonight. Your INR level was 6.3 here in the emergency department. We gave you a vitamin K pill in order to help lower your INR level as well. Call your primary doctor tomorrow for follow up within 24 hours. Return to the emergency department if you have any new, worsening, or concerning symptoms. - Post Discharge Activity - Attestations Physician Attestion: 08/21/18 13:27 I, Dr. Geno Lombardi MD, attest that this document has been prepared under my direction and personally reviewed by me in its entirety. I further attest, that it accurately reflects all work, treatment, procedures and medical decision -making performed by me.
--- NOTE | 2018-08-21 11:37 | PDOC ---
History of Present Illness - General Chief Complaint: Revisit, Lab Variance Stated Complaint: INR LEVEL IS HIGH Time Seen by Provider: 08/21/18 11:13 History Source: Patient Exam Limitations: No Limitations - History of Present Illness Initial Comments: Patient is a 63 y/o M w/ PMHx RA, DM, DVT and PE on coumadin s/p sternotomy, GERD, HTN, HLD, hiatal hernia, pancreatitis, hospitalized in April 2018 for torticollis and hypokalemia, presents on instructions from PCP for high INR. States his INR level yesterday was 6+. Outpatient labwork provided by Pt has most recent INR level on 08/14/18 of 2.6. He has no acute complaints, denies any recent bleeding, bruising, or acute pain. Denies use of OTC medications, vitamins, dietary or herbal supplements. 08/21/18 11:32 Past History - Past Medical History Allergies/Adverse Reactions: Allergies Allergy/AdvReac Type Severity Reaction Status Date / Time enalapril Allergy Verified 08/21/18 11:29 Home Medications: Ambulatory Orders Albuterol Sulfate Inhaler - [Ventolin HFA Inhaler -] 1 - 2 inh PO BID 04/27/18 Aspirin 81 mg PO DAILY 04/27/18 Fluticasone/Salmeterol [Advair 250-50 Diskus] 1 each IH BID 04/27/18 Insulin Lispro [Admelog] 22 unit SQ TID 04/27/18 Methylprednisolone [Medrol -] 4 mg PO DAILY 04/27/18 Metoprolol Tartrate 25 mg PO BID 04/27/18 Calcium Citrate/Vitamin D2 [Scott-Citrate Plus Vitamin D Tab] 1 each PO DAILY 11/10 Cyclobenzaprine HCl 10 mg PO TID #10 tablet 04/28/18 Fluticasone Prop 0.05% Nasal [Flonase -] 1 - 2 spray NS DAILY 04/28/18 Glimepiride 4 mg PO DAILY 04/28/18 Pravastatin Sodium 10 mg PO HS 04/28/18 traMADol HCL [Ultram -] 50 mg PO Q6H PRN #12 tablet MDD 200 mg 04/28/18 Calcium Carbonate [Oysco-500] 500 mg PO DAILY 08/21/18 Etanercept [Enbrel] 50 mg SQ WEEKLY 08/21/18 Metformin HCl [Glucophage] 500 mg PO BID 08/21/18 Methylprednisolone [Medrol -] 4 mg PO DAILY 08/21/18 Metoprolol Tartrate 25 mg PO BID 08/21/18 Warfarin Sodium [Coumadin] 2.5 mg PO DAILY 08/21/18 Asthma: Yes Cancer: No Cardiac Disorders: Yes (PE) CVA: No COPD: No CHF: No Dementia: No Diabetes: Yes (type 2) GI Disorders: Yes (GERD,HERNIA) HTN: Yes Hypercholesterolemia: Yes Seizures: No Other medical history: arthritis, - Surgical History Lung Surgery: (STERNOTOMY) - Immunization History Immunization Up to Date: No - Suicide/Smoking/Psychosocial Hx Smoking History: Never smoked Have you smoked in the past 12 months: No Information on smoking cessation initiated: No Hx Alcohol Use: No Drug/Substance Use Hx: No Substance Use Type: None Hx Substance Use Treatment: No Review of Systems - Review of Systems Comments:: As per HPI. 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 Contacting PCP for further information. 08/21/18 11:36 Unable to reach covering physician for PCP after multiple attempts. CBC shows Hb higher than at prior admission. INR 6.23. Will administer 1mg oral vitamin K , instruct to hold further warfarin and f/u with PCP as soon as possible. Additionally, Pt states he feels his blood sugar is low. Will obtain FSG. 08/21/18 13:03 FSG is 95. 08/21/18 13:35 *DC/Admit/Observation/Transfer Diagnosis at time of Disposition: Supratherapeutic INR - Discharge Dispostion Disposition: HOME Condition at time of disposition: Stable - Referrals Referrals: Rod Boss [Primary Care Provider] - - Patient Instructions Printed Discharge Instructions: DI for Warfarin Therapy - Post Discharge Activity
[2018-08-21 12:27] LABS: BASO % 1.3 % (0-2.0); EOS % 3.1 % (0-4.5); HEMATOCRIT 28.2 % (35.4-49); HEMOGLOBIN 9.1 GM/dL (11.7-16.9); LYMPH % 22.4 % (8-40); MCH 21.4 pg (25.7-33.7); MCHC 32.4 g/dl (32.0-35.9); MEAN CELL VOLUME 66.2 fl (80-96); MEAN PLT VOLUME 6.9 fl (7.5-11.1); NEUT % 65.2 % (42.8-82.8); PLATELET COUNT 542 K/MM3 (134-434); RBC 4.26 M/mm3 (4.00-5.60); RDW 17.6 % (11.9-15.9); WHITE BLOOD COUNT 9.9 K/mm3 (4.0-10.0)
[2018-08-21 12:39] LABS: PROTHROMBIN TIME (PATIENT) 74.9 SEC (9.7-13.0)
[2018-08-21 13:00] LABS: INR 6.23 (0.83-1.09)
[2018-08-21] MEDS ORDERED: PHYTONADIONE 5 MG TABLET PO ONE (13:06)
[2018-08-21 13:15] LABS: ANISOCYTOSIS 1+; MACROCYTOSIS 0; PLATELET ESTIMATE INCREASED
[2018-08-21] MEDS ORDERED: PHYTONADIONE 10 MG/1 ML AMP ONE (13:30)
== END 2018-08-21 13:47 | disposition home or self-care (01) ==
LOC: JER 10:32
DX: R79.1 Abnormal coagulation profile (principal); I10 Essential (primary) hypertension; E11.9 Type 2 diabetes mellitus without complications; Z79.4 Long term (current) use of insulin; K21.9 Gastro-esophageal reflux disease without esophagitis; Z86.718 Personal history of other venous thrombosis and embolism; Z86.711 Personal history of pulmonary embolism; Z79.01 Long term (current) use of anticoagulants; M06.9 Rheumatoid arthritis, unspecified
CPT/HCPCS: 36415; 82962; 85025; 85610; 99282-25

== ENCOUNTER 2019-01-17 08:26 | Day surgery (SDC) | payer OTHER ==
[2019-01-17 09:14] VITALS: BMI 22.8
[2019-01-17 10:05] VITALS: TEMP 98.1
[2019-01-17 10:57] VITALS: BP 147/69; PULSE 67
== END 2019-01-17 10:57 | disposition home or self-care (01) ==
LOC: JASU-ENDO 08:26
PROVIDERS: ATTEND Internal Medicine Gastroenterology
PROC: 0DJ08ZZ Inspection of Upper Intestinal Tract, Via Natural or Artificial Opening Endoscopic (ICD-10-PCS; 2019-01-17)
PROC: 0DJD8ZZ Inspection of Lower Intestinal Tract, Via Natural or Artificial Opening Endoscopic (ICD-10-PCS; principal; 2019-01-17 09:30)
DX: D64.9 Anemia, unspecified (principal); E11.9 Type 2 diabetes mellitus without complications; Z79.84 Long term (current) use of oral hypoglycemic drugs; M06.9 Rheumatoid arthritis, unspecified

== ENCOUNTER 2019-07-08 05:12 | Inpatient (IN) | payer OTHER ==
--- NOTE | 2019-07-08 06:11 | PDOC ---
Attending Attestation - Resident Resident Name: Ivan Vaughan - ED Attending Attestation I have performed the following: I have examined & evaluated the patient, The case was reviewed & discussed with the resident, I agree w/resident's findings & plan - HPI HPI: 07/08/19 06:11 Pt comes with pain after podiatry appt on Thurs and ingrown toenail resection. Inability to ambulate Inability to find a position of comfort Pt is DM and PE history with open heart surgery. 07/08/19 07:02 - Physicial Exam PE: 07/08/19 21:19 Left 1st toe red and exquisitely tender; medial aspect of nail cut off and underlying tissue open. redness going uo the medial aspect of the dorsal left foot. Pt has otherwise normal exam - Medical Decision Making 07/08/19 07:06 Pt will have labs and vanco and unasyn; morphine and saline for pain and hydration Pt will be signed out to the day team and admitted for inability to ambulate.
--- NOTE | 2019-07-08 06:35 | PDOC ---
History of Present Illness - General Chief Complaint: Pain Stated Complaint: PAIN Time Seen by Provider: 07/08/19 05:54 - History of Present Illness Initial Comments: 07/08/19 06:35 Patient is a 64 y/o male w/ PM hx of Type II DM, HTN, GERD, Asthma, Bronchiectasis Rheumatoid Arthritis, Anemia, Spondylosis, presenting to ED w/ toe pain of two d ays duration. 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 Since then he has had pain of increasing intensity which he describes became unbearable yesterday evening. He says he took acetaminophen 1000mg three times yesterday, last at 9: 30pm and states this did not help, He also says he put mupuricin 2% ointment on the toe. He describes the pain as localized to the left great toe nail bed and soft tissue, does not radiate, is stabbing in quality, and 10/10 intensity. He says he can't walk due to the pain and could not sleep due to the pain and this prompted him to come to the ED. Patient states he is allergic to enalapril rxn is cough. Past History - Past Medical History Allergies/Adverse Reactions: Allergies Allergy/AdvReac Type Severity Reaction Status Date / Time enalapril Allergy Difficulty Verified 07/08/19 06:17 Breathing Home Medications: Ambulatory Orders Albuterol Sulfate Inhaler - [Ventolin HFA Inhaler -] 1 - 2 inh PO BID 04/27/18 Insulin Lispro [Admelog] 22 unit SQ TID 04/27/18 Pravastatin Sodium 10 mg PO HS 04/28/18 Etanercept [Enbrel] 50 mg SQ WEEKLY 08/21/18 Metformin HCl [Glucophage] 500 mg PO BID 08/21/18 Methylprednisolone [Medrol -] 4 mg PO DAILY 08/21/18 Metoprolol Tartrate 25 mg PO DAILY 08/21/18 Apixaban [Eliquis] 5 mg PO BID 01/17/19 Calcium 250Mg/Vit-D 125 Units [Oscal 250 mg+D -] 1 tab PO DAILY 01/17/19 Ferrous Sulfate 325 mg PO DAILY 01/17/19 Insulin Glargine,Hum.rec.anlog [Basaglar Kwikpen U-100] 12 unit SQ HS 01/17/19 Leflunomide 10 mg PO DAILY 01/17/19 Asthma: Yes Cancer: No Cardiac Disorders: Yes (PE 02/2018) CVA: No COPD: No CHF: No Dementia: No Diabetes: Yes (type 2) GI Disorders: Yes (GERD,HERNIA) HTN: Yes Hypercholesterolemia: Yes Seizures: No Other medical history: arthritis - Surgical History Lung Surgery: (STERNOTOMY) - Immunization History Immunization Up to Date: No - Psycho Social/Smoking Cessation Hx Smoking History: Never smoked Have you smoked in the past 12 months: No Hx Alcohol Use: No Drug/Substance Use Hx: No Substance Use Type: None Hx Substance Use Treatment: No Review of Systems - Review of Systems Comments:: Constitutional: Denied fever, chills, generalized weakness HEENT: Denied visual changes Cardiovascular: Denied Chest Pain, SOB Respiratory: Denied Cough, Sputum, SOB MSK: Pain in left first toe, no pain in other toes, digits, or limbs Integument: Denied Rash, lesions Gastrointestinal: Denied Nausea, Vomiting, Diarrhea, Constipation Neuro: Denied Weakness, Headache, Confusion *Physical Exam - Vital Signs Last Vital Signs Temp Pulse Resp BP Pulse Ox 97.7 F 79 18 139/77 97 07/08/19 06:17 07/08/19 06:17 07/08/19 06:17 07/08/19 06:17 07/08/19 06:17 - Physical Exam 07/08/19 06:36 Physical Exam: GENERAL: A&O x3, in NAD EYES: PERRLA, EOMI RESPIRATORY: The patient has normal and symmetric respiratory effort. Lungs are clear to auscultation. CARDIOVASCULAR: S1, S2 without significant murmur. ABDOMEN: Abdomen is flat, soft, nontender. Bowel sounds are active. No masses or pulsations present. EXTREMITIES: Extremities reveal no remarkable dependent edema or varicosities. Swollen and erythematous left first toe. SKIN: no significant rash or lesions. Adequate skin turgor. Nailbed of left first toe is visible. NEUROLOGICAL: No acute focal neurologic changes. Discharge - Follow up/Referral Referrals: Rod Boss [Primary Care Provider] - - Patient Discharge Instructions - Post Discharge Activity
--- NOTE | 2019-07-08 06:43 | PDOC ---
History of Present Illness - General Chief Complaint: Pain Stated Complaint: PAIN Time Seen by Provider: 07/08/19 05:54 - History of Present Illness Initial Comments: 07/08/19 06:40 64M with pmh of Type II DM, HTN, GERD, Asthma, Bronchiectasis Rheumatoid Arthritis, Anemia, Spondylosis, presenting to ED w/ toe pain of two days duration. 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 Since then he has had pain of increasing intensity which he describes became unbearable yesterday evening. He says he took acetaminophen 1000mg three times yesterday, last at 9:30pm and states this did not help, He also says he put mupuricin 2% ointment on the toe. He describes the pain as localized to the left great toe nail bed and soft tissue, does not radiate, is stabbing in quality, and 10/10 intensity. He says he can't walk due to the pain and could not sleep due to the pain and this prompted him to come to the ED. Denies fever, chills, n/v/d. Past History - Past Medical History Allergies/Adverse Reactions: Allergies Allergy/AdvReac Type Severity Reaction Status Date / Time enalapril Allergy Difficulty Verified 07/08/19 06:17 Breathing Home Medications: Ambulatory Orders Albuterol Sulfate Inhaler - [Ventolin HFA Inhaler -] 1 - 2 inh PO BID 04/27/18 Insulin Lispro [Admelog] 22 unit SQ TID 04/27/18 Pravastatin Sodium 10 mg PO HS 04/28/18 Etanercept [Enbrel] 50 mg SQ WEEKLY 08/21/18 Metformin HCl [Glucophage] 500 mg PO BID 08/21/18 Methylprednisolone [Medrol -] 4 mg PO DAILY 08/21/18 Metoprolol Tartrate 25 mg PO DAILY 08/21/18 Apixaban [Eliquis] 5 mg PO BID 01/17/19 Calcium 250Mg/Vit-D 125 Units [Oscal 250 mg+D -] 1 tab PO DAILY 01/17/19 Ferrous Sulfate 325 mg PO DAILY 01/17/19 Insulin Glargine,Hum.rec.anlog [Tami Stiles U-100] 12 unit SQ HS 01/17/19 Leflunomide 10 mg PO DAILY 01/17/19 Asthma: Yes Cancer: No Cardiac Disorders: Yes (PE 02/2018) CVA: No COPD: No CHF: No Dementia: No Diabetes: Yes (type 2) GI Disorders: Yes (GERD,HERNIA) HTN: Yes Hypercholesterolemia: Yes Seizures: No Other medical history: arthritis - Surgical History Lung Surgery: (STERNOTOMY) - Immunization History Immunization Up to Date: No - Psycho Social/Smoking Cessation Hx Smoking History: Never smoked Have you smoked in the past 12 months: No Hx Alcohol Use: No Drug/Substance Use Hx: No Substance Use Type: None Hx Substance Use Treatment: No Review of Systems - Review of Systems Able to Perform ROS?: Yes Is the patient limited Uzbek proficient: No Constitutional: No: Symptoms Reported HEENTM: No: Symptoms Reported Respiratory: No: Symptoms reported Cardiac (ROS): No: Symptoms Reported ABD/GI: No: Symptoms Reported : No: Symptoms Reported Musculoskeletal: No: Symptoms Reported Integumentary: Yes: See HPI All Other Systems: Reviewed and Negative *Physical Exam - Vital Signs Last Vital Signs Temp Pulse Resp BP Pulse Ox 97.7 F 79 18 139/77 97 07/08/19 06:17 07/08/19 06:17 07/08/19 06:17 07/08/19 06:17 07/08/19 06:17 - Physical Exam General Appearance: Yes: Nourished, Appropriately Dressed. No: Apparent Distress HEENT: positive: EOMI, BONNIE, Normal ENT Inspection Respiratory/Chest: positive: Lungs Clear, Normal Breath Sounds. negative: Chest Tender Cardiovascular: positive: Regular Rhythm, Regular Rate, S1, S2 Gastrointestinal/Abdominal: positive: Normal Bowel Sounds, Flat, Soft. negative : Tender Musculoskeletal: positive: Normal Inspection. negative: CVA Tenderness Extremity: positive: Normal Capillary Refill, Normal Inspection, Normal Range of Motion Neurologic: positive: Fully Oriented, Alert, Normal Mood/Affect Medical Decision Making - Medical Decision Making 07/08/19 07:06 Will obtain basic labs and treat with IV antibiotics. Will Admit patient on the basic that is pain is intolerable, unable to bear weight. Will also obtain imaging. Patient signed out to Dr. Roberts. Discharge - Discharge Information Problems reviewed: Yes Clinical Impression/Diagnosis: Toe pain - Follow up/Referral Referrals: Rod Boss [Primary Care Provider] - - Patient Discharge Instructions - Post Discharge Activity
[2019-07-08] MEDS ORDERED: AMOX TR/POT CLAV 875MG/125MG TABLETS (FP) PO ONE (06:57)
[2019-07-08] MEDS ORDERED: SODIUM CHLORIDE 0.9% 500 ML INFUS.BAG IV ONE (07:01)
[2019-07-08] MEDS ORDERED: AMPICILLIN NA/SULBACTAM NA 1.5 GM in SODIUM CHLORIDE 100 ML IVPB ONE (07:01)
[2019-07-08] MEDS ORDERED: morphine CARPU-JECT 2 MG/1 ML DISP.SYRIN IVPUSH ONE (07:01)
[2019-07-08] MEDS ORDERED: AMOX TR/POT CLAV 875MG/125MG TABLETS (FP) ONE (07:23)
[2019-07-08] MEDS ORDERED: MORPHINE SULFATE 2 MG/ML VIAL ONE (07:23)
[2019-07-08 08:08] LABS: BASO % 1.2 % (0-2.0); EOS % 2.6 % (0-4.5); HEMATOCRIT 42.3 % (35.4-49); LYMPH % 21.4 % (8-40); MCH 29.5 pg (25.7-33.7); MEAN CELL VOLUME 89.3 fl (80-96); MEAN PLT VOLUME 8.8 fl (7.5-11.1); MONO % 11.6 % (3.8-10.2); NEUT % 63.2 % (42.8-82.8); PLATELET COUNT 275 K/MM3 (134-434); RBC 4.74 M/mm3 (4.00-5.60); RDW 13.6 % (11.9-15.9); WHITE BLOOD COUNT 12.9 K/mm3 (4.0-10.0)
--- NOTE | 2019-07-08 08:20 | PDOC ---
*Physical Exam - Vital Signs Last Vital Signs Temp Pulse Resp BP Pulse Ox 97.7 F 79 18 139/77 97 07/08/19 06:17 07/08/19 06:17 07/08/19 06:17 07/08/19 06:17 07/08/19 06:17 ED Treatment Course - LABORATORY CBC & Chemistry Diagram: 07/10/19 05:54 07/10/19 05:46 - ADDITIONAL ORDERS Additional order review: 07/08/19 07:39 RBC 4.74 MCV 89.3 MCHC 33.0 RDW 13.6 D MPV 8.8 D Neutrophils % 63.2 Lymphocytes % 21.4 Monocytes % 11.6 H Eosinophils % 2.6 Basophils % 1.2 - RADIOLOGY Radiology Studies Ordered: Category Date Time Status FOOT-LEFT [RAD] Stat Radiology 07/08/19 08:18 Ordered - Medications Given in the ED: ED Medications Discontinued Medications Generic Name Dose Route Start Last Admin Trade Name Freq PRN Reason Stop Dose Admin Amoxicillin/Clavulanate Potassium 1 tab 07/08/19 06:57 07/08/19 07:10 Augmentin - 875mg Tablet PO 07/08/19 06:58 1 tab ONCE ONE Administration Morphine Sulfate 2 mg 07/08/19 07:01 07/08/19 07:40 Morphine Injection - IVPUSH 07/08/19 07:02 2 mg ONCE ONE Administration Sodium Chloride 1,000 ml 07/08/19 07:01 07/08/19 07:40 Normal Saline - IV 07/08/19 07:02 1,000 ml ONCE ONE Administration Medical Decision Making - Medical Decision Making 07/08/19 08:19 Pt signed out to me by Dr. Vaughan. 64M with a PMH of Type II DM, HTN, GERD, Asthma, Bronchiectasis Rheumatoid Arthritis, Anemia, Spondylosis who presents with a possible infection of his toe. PE reveals warmth and erythema around L great toe extending proximally with TTP over entire toe. IV abx ordered. XR pending. Will admit 2/2 DM and to prevent worsening infection. 07/08/19 11:55 XR negative. Pt requiring repeat doses of pain medication for pain control. Given 4 of morphine and felt better but pain returned. 1g IV tylenol ordered. Pt endorsed to Dr. Botello for admission. Discharge - Discharge Information Problems reviewed: Yes Clinical Impression/Diagnosis: Toe pain Condition: Guarded - Admission Yes - Follow up/Referral - Patient Discharge Instructions - Post Discharge Activity
[2019-07-08 08:38] LABS: ALBUMIN 3.4 g/dl (3.4-5.0); BILIRUBIN,TOTAL 0.8 mg/dL (0.2-1); BLOOD UREA NITROGEN 14.6 mg/dL (7-18); CALCIUM 8.8 mg/dL (8.5-10.1); CREATININE 1.2 mg/dL (0.55-1.3); POTASSIUM 3.7 mmol/L (3.5-5.1); TOT PROT 6.9 g/dl (6.4-8.2)
[2019-07-08] MEDS ORDERED: APIXABAN 5 MG TABLET PO ONE (10:58)
[2019-07-08] MEDS ORDERED: morphine CARPU-JECT 4 MG/1 ML DISP.SYRIN IVPUSH ONE (10:58)
[2019-07-08] MEDS ORDERED: morphine SULFATE 4 MG/ML VIAL ONE (11:00)
[2019-07-08] MEDS ORDERED: APIXABAN 5 MG TABLET ONE (11:00)
[2019-07-08] MEDS ORDERED: ACETAMINOPHEN 1000 MG/100 ML VIAL (NON FORMULARY) IVPB ONE (11:53)
[2019-07-08] MEDS ORDERED: ACETAMINOPHEN 325 MG TABLET (FP) PO ONE (12:01)
--- NOTE | 2019-07-08 12:23 | HP ---
Admitting History and Physical - Primary Care Physician PCP: Rod Boss - Admission Chief Complaint: Left foot pain and swelling History of Present Illness: 64 years old man history of hypertension, type 2 diabetes mellitus, rheumatoid arthritis on Enabrel 50 mg subcu every Wednesday, recurrent pulmonary embolism s/ p right ventricular thrombus embolectomy in February 2018 at [facility] on lifelong anticoagulation, presented with left foot pain and swelling and redness that he started on after a podiatry procedure on of Left great toe, patient developed some wound, gradually redness, swelling, pain worse and extended up to mid foot, denies any fever, chills, shortness of breath or palpitation in the ED elevated total white blood cell count is being admitted for further management. History Source: Patient - Past Medical History Heme/Onc: Yes: Other (Recurrent pulmonary embolism) Musculoskeletal: Yes: Other (Rheumatoid arthritis) Rheumatology: Yes: Rheumatoid Arthritis Endocrine: Yes: Diabetes Insipidus - Past Surgical History Additional Past Surgical History: Open heart surgery for right ventricular embolus in February 2018 [facility] - Smoking History Smoking history: Never smoked Have you smoked in the past 12 months: No - Alcohol/Substance Use Hx Alcohol Use: No - Social History History of Recent Travel: No Home Medications - Allergies Allergies/Adverse Reactions: Allergies Allergy/AdvReac Type Severity Reaction Status Date / Time enalapril Allergy Difficulty Verified 07/08/19 06:17 Breathing - Home Medications Home Medications: Ambulatory Orders Insulin Lispro [Admelog] 10 unit SQ TID 04/27/18 Pravastatin Sodium 10 mg PO HS 04/28/18 Etanercept [Enbrel] 50 mg SQ WEEKLY 08/21/18 Metformin HCl [Glucophage] 100 mg PO AM 08/21/18 Methylprednisolone [Medrol -] 4 mg PO DAILY 08/21/18 Metoprolol Tartrate 25 mg PO DAILY 08/21/18 Apixaban [Eliquis] 5 mg PO BID 01/17/19 Ferrous Sulfate 325 mg PO DAILY 01/17/19 Insulin Glargine,Hum.rec.anlog [Basaglar Kwikpen U-100] 10 unit SQ HS 01/17/19 Leflunomide 10 mg PO DAILY 01/17/19 Calcium Carbonate [Oysco-500] 500 mg PO DAILY 07/08/19 Losartan Potassium [Cozaar -] 25 mg PO DAILY 07/08/19 Omeprazole 20 mg PO DAILY 07/08/19 Family Medical History Family Hx Cancer: Father (Diabetes mellitus) Family Hx Respiratory Disorders: Mother (Asthma) Review of Systems - Review of Systems Constitutional: reports: Malaise. denies: Chills, Diaphoresis Eyes: denies: Blind Spots, Blurred Vision, Double Vision HENT: denies: Difficult Swallowing, Ear Discharge, Ear Pain, Epistaxis Neck: denies: Decreased ROM, Lumps, Pain on Movement, Stiffness Cardiovascular: reports: Edema. denies: Chest Pain, Palpitations, Shortness of Breath Respiratory: denies: Cough, Exercise Intolerance Gastrointestinal: denies: Abdominal Pain, Bloating Genitourinary: denies: Burning, Discharge, Dysuria Musculoskeletal: reports: Other (Left great toe infected wound). denies: Back Pain, Crepitus, Decreased ROM Physical Examination Vital Signs: Vital Signs Temperature 98.5 F 07/08/19 10:00 Pulse Rate 87 07/08/19 10:00 Respiratory Rate 07/08/19 10:00 Blood Pressure 136/65 07/08/19 10:00 O2 Sat by Pulse Oximetry (%) 99 07/08/19 10:00 General: Elderly man, complaint of left foot pain , not in distress HEENT; mucous membranes moist, no anemia, no jaundice, PERRLA, no nystagmus Neck: No JVD, supple, no bruit, thyroid palpably normal, normal carotid pulsations. Chest: Nontender, clear to auscultation bilaterally CVS: S1-S2 regular/, bowel sounds present. Extremities: Left foot infected great toenail, surrounding cellulitis, no edema. , No cough tenderness, pulses present AWS DEVELOPER: AO X3 , no gross motor sensory deficit Labs: CBC, BMP 07/08/19 07:39 07/08/19 07:39 Imaging - Results X-ray: Report Reviewed (Left foot: No fracture or dislocation) EKG: Report Reviewed (Normal sinus rhythm no acute ST-T changes) Problem List - Problems (1) Cellulitis of left foot Assessment/Plan: Patient developed acute cellulites left great toe, after podiatry procedure, considering multiple comorbidities including diabetes mellitus and on immunosuppressive therapy will consider broader antibiotic coverage Zosyn 3.75 g every 6 hourly and vancomycin 1 g BID , ID and podiatry consult, follow-up cultures, pain control, follow-up ESR CRP consider MRI foot if no improvement. Problems reviewed: Yes Code(s): L03.116 - CELLULITIS OF LEFT LOWER LIMB (2) Type 2 diabetes mellitus Assessment/Plan: Diabetic diet, Accu-Cheks before meals and bedtime, continue Lantus 10 units at bedtime, correction dose lispro Problems reviewed: Yes Code(s): E11.9 - TYPE 2 DIABETES MELLITUS WITHOUT COMPLICATIONS (3) Recurrent pulmonary embolism Assessment/Plan: Continue apixaban 5 mg twice daily. Problems reviewed: Yes Code(s): I26.99 - OTHER PULMONARY EMBOLISM WITHOUT ACUTE COR PULMONALE (4) Rheumatoid arthritis Assessment/Plan: Continue home medications, methylprednisolone 4 mg daily, leflunomide 10 mg daily and Enbrel 50 mg subcu every Wednesday patient will take his home medications. Problems reviewed: Yes Code(s): M06.9 - RHEUMATOID ARTHRITIS, UNSPECIFIED (5) Hypertension Assessment/Plan: Well-controlled continue all home medications, losartan 50 mg daily and metoprolol. Problems reviewed: Yes Code(s): I10 - ESSENTIAL (PRIMARY) HYPERTENSION (6) Hypercholesterolemia Assessment/Plan: On pravastatin continue same. Problems reviewed: Yes Code(s): E78.00 - PURE HYPERCHOLESTEROLEMIA, UNSPECIFIED Assessment/Plan Patient admitted with left great toe cellulitis after podiatry procedure, continue multiple comorbidities will cover with broad-spectrum antibiotic, podiatry consult, ID consult, cultures subsequently plan of care as per progress.
--- NOTE | 2019-07-08 12:39 | CON.ID ---
Consult Consult Specialty:: infectious diseases Referred by:: Reason for Consultation:: infected rt toe - History of Present Illness Chief Complaint: pain of the rt toe History of Present Illness: 64 years old man history of hypertension, type 2 diabetes mellitus, rheumatoid arthritis on Enabrel 50 mg subcu every Wednesday, recurrent pulmonary embolism s/ p right ventricular thrombus embolectomy in February 2018 at [facility] on lifelong anticoagulation, presented with left foot pain and swelling and redness that he started on after a podiatry procedure on of Left great toe. according tot he patient the roller cleaner cut his nail which led to the injury and then redness, swelling, pain worse and extended up to mid foot patient was not able to place any weight on his leg which forced him to come to the hospital patient mentions that his pain is throbbing family in the room - History Source History Provided By: Patient Limitations to Obtaining History: No Limitations - Past Medical History Musculoskeletal: Yes: Other (Rheumatoid arthritis) Rheumatology: Yes: Rheumatoid Arthritis Endocrine: Yes: Diabetes Insipidus - Alcohol/Substance Use Hx Alcohol Use: No - Smoking History Smoking history: Never smoked Have you smoked in the past 12 months: No - Social History History of Recent Travel: No Home Medications - Allergies Allergies/Adverse Reactions: Allergies Allergy/AdvReac Type Severity Reaction Status Date / Time enalapril Allergy Difficulty Verified 07/08/19 06:17 Breathing - Home Medications Home Medications: Ambulatory Orders Insulin Lispro [Admelog] 10 unit SQ TID 04/27/18 Pravastatin Sodium 10 mg PO HS 04/28/18 Etanercept [Enbrel] 50 mg SQ WEEKLY 08/21/18 Metformin HCl [Glucophage] 100 mg PO AM 08/21/18 Methylprednisolone [Medrol -] 4 mg PO DAILY 08/21/18 Metoprolol Tartrate 25 mg PO DAILY 08/21/18 Apixaban [Eliquis] 5 mg PO BID 01/17/19 Ferrous Sulfate 325 mg PO DAILY 01/17/19 Insulin Glargine,Hum.rec.anlog [Basaglar Kwikpen U-100] 10 unit SQ HS 01/17/19 Leflunomide 10 mg PO DAILY 01/17/19 Calcium Carbonate [Oysco-500] 500 mg PO DAILY 07/08/19 Losartan Potassium [Cozaar -] 25 mg PO DAILY 07/08/19 Omeprazole 20 mg PO DAILY 07/08/19 Review of Systems - Review of Systems Constitutional: reports: No Symptoms Eyes: reports: No Symptoms HENT: reports: No Symptoms Neck: reports: No Symptoms Cardiovascular: reports: No Symptoms Respiratory: reports: No Symptoms Gastrointestinal: reports: No Symptoms Musculoskeletal: reports: No Symptoms Integumentary: reports: Erythema (of left leg), Wound Neurological: reports: No Symptoms Endocrine: reports: No Symptoms Hematology/Lymphatic: reports: No Symptoms Psychiatric: reports: No Symptoms Physical Exam Vital Signs: Vital Signs Temperature 98.6 F 07/08/19 12:24 Pulse Rate 89 07/08/19 12:24 Respiratory Rate 18 07/08/19 12:24 Blood Pressure 132/67 07/08/19 12:24 O2 Sat by Pulse Oximetry (%) 99 07/08/19 12:24 Constitutional: Yes: Well Nourished, Calm, Mild Distress Eyes: Yes: Conjunctiva Clear HENT: Yes: Atraumatic, Normocephalic Neck: Yes: Supple, Trachea Midline Cardiovascular: Yes: Regular Rate and Rhythm Respiratory: Yes: Regular, CTA Bilaterally Gastrointestinal: Yes: Normal Bowel Sounds, Soft Musculoskeletal: Yes: WNL Extremities: Yes: Erythema (of the left foot), Other Wound/Incision: Yes: Clean/Dry, Open to air, Other (on the left toe) Neurological: Yes: Alert, Oriented Psychiatric: Yes: Alert, Oriented Labs: CBC, BMP 07/08/19 07:39 07/08/19 07:39 Imaging - Results X-ray: Report Reviewed, Image Reviewed Assessment/Plan Problem List - Problems (1) Cellulitis of left foot Problems reviewed: Yes Code(s): L03.116 - CELLULITIS OF LEFT LOWER LIMB (2) Type 2 diabetes mellitus Problems reviewed: Yes Code(s): E11.9 - TYPE 2 DIABETES MELLITUS WITHOUT COMPLICATIONS (3) Recurrent pulmonary embolism Problems reviewed: Yes Code(s): I26.99 - OTHER PULMONARY EMBOLISM WITHOUT ACUTE COR PULMONALE (4) Rheumatoid arthritis Problems reviewed: Yes Code(s): M06.9 - RHEUMATOID ARTHRITIS, UNSPECIFIED (5) Hypertension Problems reviewed: Yes Code(s): I10 - ESSENTIAL (PRIMARY) HYPERTENSION (6) Hypercholesterolemia Problems reviewed: Yes Code(s): E78.00 - PURE HYPERCHOLESTEROLEMIA, UNSPECIFIED Assessment/Plan patient got vanco and zosyn i would continue zosyn for now await for all reports follow crp if patient does not improve further imaging studies pulses present,still might need vascular studies
[2019-07-08] MEDS ORDERED: VANCOMYCIN 1 GM PREMIX - 1 GM/200 ML BAG IVPB SCH ×2 (12:45→13:15)
[2019-07-08 13:23] VITALS: BMI 27.3
[2019-07-08] MEDS: MORPHINE SULFATE 2 MG/ML VIAL IVPUSH PRN ×3 (13:32→21:09)
[2019-07-08] MEDS: SODIUM CHLORIDE 1,000 ML IV SCH (13:49)
[2019-07-08] MEDS: VANCOMYCIN 1 GRAM (PRE-DOCKED) 1,000 MG/250 ML BAG IVPB SCH (13:50)
[2019-07-08] MEDS: METOPROLOL TARTRATE 25 MG TABLET (FP) PO SCH (14:23)
[2019-07-08] MEDS ORDERED: INSULIN (NOVOLOG) ASPART 100 UNITS/ML 10ML VIAL ONE (17:27)
[2019-07-08] MEDS: AMPICILLIN NA/SULBACTAM NA 3 GM in SODIUM CHLORIDE 100 ML IVPB SCH (17:34)
[2019-07-08] MEDS: INSULIN SLIDING SCALE (NOVOLOG) 1 VIAL SQ SCH (17:35)
[2019-07-08] MEDS: ATORVASTATIN CA 10 MG TABLET (FP) PO SCH (21:10)
[2019-07-08] MEDS: APIXABAN 5 MG TABLET PO SCH (21:10)
[2019-07-08] MEDS: PATIENT'S OWN MEDICATION (NON-FORMULARY) (Insulin Glargine,Hum.Rec.Anlog [Basaglar Kwikpen SQ SCH (23:00)
[2019-07-09] MEDS: AMPICILLIN NA/SULBACTAM NA 3 GM in SODIUM CHLORIDE 100 ML IVPB SCH ×3 (01:07→17:22)
[2019-07-09] MEDS: ACETAMINOPHEN 325 MG TABLET (FP) PO PRN ×2 (01:23→08:49)
[2019-07-09] MEDS: oxyCODONE HCL 5 MG TABLET PO PRN ×2 (01:24→08:47)
[2019-07-09] MEDS: VANCOMYCIN 1 GRAM (PRE-DOCKED) 1,000 MG/250 ML BAG IVPB SCH (01:42)
[2019-07-09] MEDS: SODIUM CHLORIDE 1,000 ML IV SCH ×3 (05:01→17:11)
[2019-07-09] MEDS: INSULIN SLIDING SCALE (NOVOLOG) 1 VIAL SQ SCH ×3 (06:04→17:11)
--- NOTE | 2019-07-09 08:01 | PN ---
Progress Note, Physician History of Present Illness: stable no new issues pain better says leg is feeling better - Current Medication List Current Medications: Active Medications Acetaminophen (Tylenol -) 325 mg PO Q8H PRN PRN Reason: PAIN SCALE 1-5 Last Admin: 07/09/19 01:23 Dose: 325 mg Apixaban (Eliquis -) 5 mg PO BID [facility] Last Admin: 07/08/19 21:10 Dose: 5 mg Atorvastatin Calcium (Lipitor -) 10 mg PO HS [facility] Last Admin: 07/08/19 21:10 Dose: 10 mg Sodium Chloride (Normal Saline -) 1,000 mls @ 100 mls/hr IV ASDIR [facility] Last Admin: 07/09/19 05:01 Dose: 100 mls/hr Vancomycin HCl (Vancomycin 1 Gm Premix -) 1 gm in 200 mls @ 133.333 mls/hr IVPB Q12H [facility] Ampicillin Sodium/Sulbactam (Sodium 3 gm/ Sodium Chloride) 100 mls @ 200 mls/ hr IVPB Q8H-IV [facility] Last Admin: 07/09/19 01:07 Dose: 200 mls/hr Insulin Aspart (Novolog Vial Sliding Scale -) 1 vial SQ TIDAC [facility]; Protocol Last Admin: 07/09/19 06:04 Dose: 2 units Leflunomide (Arava -) 10 mg PO DAILY [facility] Losartan Potassium (Cozaar -) 25 mg PO DAILY [facility] Methylprednisolone (Medrol -) 4 mg PO DAILY [facility] Metoprolol Tartrate (Lopressor -) 25 mg PO DAILY [facility] Last Admin: 07/08/19 14:23 Dose: 25 mg Morphine Sulfate (Morphine Sulfate) 2 mg IVPUSH Q4H PRN PRN Reason: PAIN LEVEL 6-10 Last Admin: 07/08/19 21:09 Dose: 2 mg Non-Formulary Medication (Insulin Glargine,Hum.Rec.Anlog [Basaglar Kwikpen U-100 ]) 10 unit SQ [facility] Last Admin: 07/08/19 23:00 Dose: 10 unit Non-Formulary Medication (Patient's Own Med) 1 each SQ DAILY [facility] Oxycodone HCl (Roxicodone -) 5 mg PO Q8H PRN PRN Reason: PAIN SCALE 1-5 Last Admin: 07/09/19 01:24 Dose: 5 mg Pantoprazole Sodium (Protonix -) 20 mg PO DAILY [facility] - Objective Vital Signs: Vital Signs Temperature 98.6 F 07/09/19 06:00 Pulse Rate 91 H 07/09/19 06:00 Respiratory Rate 18 07/09/19 06:00 Blood Pressure 136/67 07/09/19 06:00 O2 Sat by Pulse Oximetry (%) 98 07/08/19 21:00 Constitutional: Yes: No Distress, Calm Cardiovascular: Yes: S1, S2 Respiratory: Yes: Regular, CTA Bilaterally Gastrointestinal: Yes: Normal Bowel Sounds, Soft Musculoskeletal: Yes: WNL Extremities: Yes: Other Wound/Incision: Yes: Dressing Dry and Intact Neurological: Yes: Alert, Oriented Psychiatric: Yes: Alert, Oriented Labs: CBC, BMP 07/08/19 07:39 07/08/19 07:39 Assessment/Plan Problem List - Problems (1) Cellulitis of left foot Problems reviewed: Yes Code(s): L03.116 - CELLULITIS OF LEFT LOWER LIMB (2) Type 2 diabetes mellitus Problems reviewed: Yes Code(s): E11.9 - TYPE 2 DIABETES MELLITUS WITHOUT COMPLICATIONS (3) Recurrent pulmonary embolism Problems reviewed: Yes Code(s): I26.99 - OTHER PULMONARY EMBOLISM WITHOUT ACUTE COR PULMONALE (4) Rheumatoid arthritis Problems reviewed: Yes Code(s): M06.9 - RHEUMATOID ARTHRITIS, UNSPECIFIED (5) Hypertension Problems reviewed: Yes Code(s): I10 - ESSENTIAL (PRIMARY) HYPERTENSION (6) Hypercholesterolemia Problems reviewed: Yes Code(s): E78.00 - PURE HYPERCHOLESTEROLEMIA, UNSPECIFIED Assessment/Plan continue zosyn rest as per the team monitor wbc
[2019-07-09 08:28] LABS: BASO % 0.9 % (0-2.0); EOS % 3.8 % (0-4.5); HEMATOCRIT 42.3 % (35.4-49); HEMOGLOBIN 13.9 GM/dL (11.7-16.9); LYMPH % 15.6 % (8-40); MCH 29.6 pg (25.7-33.7); MCHC 32.9 g/dl (32.0-35.9); MEAN CELL VOLUME 89.8 fl (80-96); MEAN PLT VOLUME 9.2 fl (7.5-11.1); MONO % 11.8 % (3.8-10.2); NEUT % 67.9 % (42.8-82.8); PLATELET COUNT 227 K/MM3 (134-434); RBC 4.71 M/mm3 (4.00-5.60); RDW 13.3 % (11.9-15.9); WHITE BLOOD COUNT 10.1 K/mm3 (4.0-10.0)
[2019-07-09 08:55] LABS: BLOOD UREA NITROGEN 9.2 mg/dL (7-18); CALCIUM 8.3 mg/dL (8.5-10.1); CREATININE 1.1 mg/dL (0.55-1.3); POTASSIUM 3.6 mmol/L (3.5-5.1)
[2019-07-09] MEDS: methylPREDNISolone 4 MG TABLET PO SCH (10:43)
[2019-07-09] MEDS: LOSARTAN POTASSIUM 25 MG TABLET PO SCH (10:43)
[2019-07-09] MEDS: METOPROLOL TARTRATE 25 MG TABLET (FP) PO SCH (10:43)
[2019-07-09] MEDS: PANTOPRAZOLE 20 MG TABLET (FP) PO SCH (10:43)
[2019-07-09] MEDS: APIXABAN 5 MG TABLET PO SCH ×2 (10:44→22:00)
[2019-07-09] MEDS: LEFLUNOMIDE 10 MG TABLET PO SCH (10:44)
[2019-07-09] MEDS: MORPHINE SULFATE 2 MG/ML VIAL IVPUSH PRN (10:51)
[2019-07-09] MEDS ORDERED: INSULIN (NOVOLOG) ASPART 100 UNITS/ML 10ML VIAL ONE (11:11)
--- NOTE | 2019-07-09 15:21 | PN ---
Progress Note, Physician History of Present Illness: Patient seen and examined at bedside with his son and daughter present. Febrile this AM to 100.3. Report from RN patient 100.4 last night but not documented. States he has a non productive cough which started yesterday. Denies nausea vomiting chills chest pain shortness of breath diarrhea constipation or urinary symptoms. States he still has left great toe pain that is throbbing. Endorses erythema significantly improved and forefoot is not longer erythematous and only the toe is. - Current Medication List Current Medications: Active Medications Acetaminophen (Tylenol -) 325 mg PO Q8H PRN PRN Reason: PAIN SCALE 1-5 Last Admin: 07/09/19 08:49 Dose: 325 mg Apixaban (Eliquis -) 5 mg PO BID [facility] Last Admin: 07/09/19 10:44 Dose: 5 mg Atorvastatin Calcium (Lipitor -) 10 mg PO HS [facility] Last Admin: 07/08/19 21:10 Dose: 10 mg Sodium Chloride (Normal Saline -) 1,000 mls @ 100 mls/hr IV ASDIR [facility] Last Admin: 07/09/19 12:16 Dose: Not Given Vancomycin HCl (Vancomycin 1 Gm Premix -) 1 gm in 200 mls @ 133.333 mls/hr IVPB Q12H [facility] Ampicillin Sodium/Sulbactam (Sodium 3 gm/ Sodium Chloride) 100 mls @ 200 mls/ hr IVPB Q8H-IV [facility] Last Admin: 07/09/19 10:44 Dose: 200 mls/hr Insulin Aspart (Novolog Vial Sliding Scale -) 1 vial SQ TIDAC [facility]; Protocol Last Admin: 07/09/19 11:14 Dose: 4 units Leflunomide (Arava -) 10 mg PO DAILY [facility] Last Admin: 07/09/19 10:44 Dose: 10 mg Losartan Potassium (Cozaar -) 25 mg PO DAILY [facility] Last Admin: 07/09/19 10:43 Dose: 25 mg Methylprednisolone (Medrol -) 4 mg PO DAILY [facility] Last Admin: 07/09/19 10:43 Dose: 4 mg Metoprolol Tartrate (Lopressor -) 25 mg PO DAILY [facility] Last Admin: 07/09/19 10:43 Dose: 25 mg Morphine Sulfate (Morphine Sulfate) 2 mg IVPUSH Q4H PRN PRN Reason: PAIN LEVEL 6-10 Last Admin: 07/09/19 10:51 Dose: 2 mg Non-Formulary Medication (Insulin Glargine,Hum.Rec.Anlog [Tami Stiles U-100 ]) 10 unit SQ HS [facility] Last Admin: 07/08/19 23:00 Dose: 10 unit Non-Formulary Medication (Patient's Own Med) 1 each SQ DAILY [facility] Oxycodone HCl (Roxicodone -) 5 mg PO Q8H PRN PRN Reason: PAIN SCALE 1-5 Last Admin: 07/09/19 08:47 Dose: 5 mg Pantoprazole Sodium (Protonix -) 20 mg PO DAILY [facility] Last Admin: 07/09/19 10:43 Dose: 20 mg - Objective Vital Signs: Vital Signs Temperature 99.6 F 07/09/19 13:50 Pulse Rate 82 07/09/19 13:50 Respiratory Rate 20 07/09/19 13:50 Blood Pressure 118/61 07/09/19 13:50 O2 Sat by Pulse Oximetry (%) 98 07/09/19 09:00 Constitutional: Yes: Well Nourished, No Distress, Calm Eyes: Yes: Conjunctiva Clear HENT: Yes: Atraumatic Neck: Yes: Supple Cardiovascular: Yes: Regular Rate and Rhythm Respiratory: Yes: Rhonchi (bilaterally at bases) Gastrointestinal: Yes: Soft. No: Distention, Tenderness, Rebound, Vomiting Extremities: Yes: Erythema (of left toe. No drainage) Neurological: Yes: WNL, Alert, Oriented, Cran Nerves II-XII Intact ...Motor Strength: WNL Psychiatric: Yes: Alert, Oriented Labs: CBC, BMP 07/09/19 07:05 07/09/19 07:05 Impression/Plan Impression/Plan: 64M with history of RA, DM2, HTN, HLD, and recurrent PE, presents to the hospital with left foot cellulitis after podiatry debrided left great toe. Problem List: sepsis secondary to Left foot great toe cellulitis DM2 Recurrent PE Rheumatoid arthritis HTN HLD Plan: Continue Abx per ID on Unasyn Patient febrile today to 100.3 Tmax 100.4 last night per RN report but not documented CRP elevated 2.8 ESR not done ordered for AM leukocytosis improving monitor fever curve f/u cultures Continue eliquis 5mg po BID Glucose monitoring in setting of infection-currently controlled-continue current regimen of lantus and sliding scale Diabetic/sodium controlled diet Continue methylprednisolone leflunomide and enbrel for RA continue statin continue losartan and metoprolol-BP controlled Pain control If doesn't improve may need MRI to r/o osteomyelitis as Xray foot negative and will also need podiatry consult PPI Physician instructions ordered-if patient has temp of 100.4 or greater send 2 sets of BCx from 2 separate sites Wound Cx negative on gram stain no WBCs f/u culture Will get CXR as patient states he has cough which started yesterday in the setting of fever Stop IVF as patient has crackles now and had clear breath sounds on exam on admission per admission note Visit type - Emergency Visit Emergency Visit: Yes ED Registration Date: 07/08/19 Care time: The patient presented to the Emergency Department on the above date and was hospitalized for further evaluation of their emergent condition. - New Patient This patient is new to me today: Yes Date on this admission: 07/09/19 - Critical Care Critical Care patient: No
[2019-07-09] MEDS: ATORVASTATIN CA 10 MG TABLET (FP) PO SCH (22:00)
[2019-07-09] MEDS: PATIENT'S OWN MEDICATION (NON-FORMULARY) (Insulin Glargine,Hum.Rec.Anlog [Basaglar Kwikpen SQ SCH (22:00)
[2019-07-10] MEDS ORDERED: PT OWN MED DRAWER 7, Y5N ONE ×2 (01:24→16:58)
[2019-07-10] MEDS: AMPICILLIN NA/SULBACTAM NA 3 GM in SODIUM CHLORIDE 100 ML IVPB SCH ×3 (01:29→17:03)
[2019-07-10] MEDS: SODIUM CHLORIDE 1,000 ML IV SCH ×2 (05:40→14:51)
[2019-07-10] MEDS: INSULIN SLIDING SCALE (NOVOLOG) 1 VIAL SQ SCH ×3 (06:15→17:05)
[2019-07-10] MEDS: oxyCODONE HCL 5 MG TABLET PO PRN ×2 (06:32→17:33)
[2019-07-10 06:49] LABS: BASO % 0.9 % (0-2.0); EOS % 2.7 % (0-4.5); HEMATOCRIT 36.2 % (35.4-49); HEMOGLOBIN 12.3 GM/dL (11.7-16.9); LYMPH % 14.2 % (8-40); MCH 29.8 pg (25.7-33.7); MCHC 33.9 g/dl (32.0-35.9); MEAN CELL VOLUME 87.8 fl (80-96); MEAN PLT VOLUME 8.7 fl (7.5-11.1); MONO % 12.4 % (3.8-10.2); NEUT % 69.8 % (42.8-82.8); PLATELET COUNT 218 K/MM3 (134-434); RBC 4.12 M/mm3 (4.00-5.60); RDW 13.1 % (11.9-15.9); WHITE BLOOD COUNT 11.2 K/mm3 (4.0-10.0)
[2019-07-10 07:02] LABS: BLOOD UREA NITROGEN 6.9 mg/dL (7-18); CALCIUM 8.1 mg/dL (8.5-10.1); POTASSIUM 3.8 mmol/L (3.5-5.1)
[2019-07-10] MEDS: APIXABAN 5 MG TABLET PO SCH ×2 (09:09→21:31)
[2019-07-10] MEDS: PANTOPRAZOLE 20 MG TABLET (FP) PO SCH (09:09)
[2019-07-10] MEDS: METOPROLOL TARTRATE 25 MG TABLET (FP) PO SCH (09:09)
[2019-07-10] MEDS: LEFLUNOMIDE 10 MG TABLET PO SCH (09:09)
[2019-07-10] MEDS: methylPREDNISolone 4 MG TABLET PO SCH (09:10)
[2019-07-10] MEDS: LOSARTAN POTASSIUM 25 MG TABLET PO SCH (09:11)
--- NOTE | 2019-07-10 10:33 | PN ---
Progress Note, Physician History of Present Illness: stable spiked fevers leg improving cough - Current Medication List Current Medications: Active Medications Acetaminophen (Tylenol -) 325 mg PO Q8H PRN PRN Reason: PAIN SCALE 1-5 Last Admin: 07/09/19 08:49 Dose: 325 mg Apixaban (Eliquis -) 5 mg PO BID [facility] Last Admin: 07/10/19 09:09 Dose: 5 mg Atorvastatin Calcium (Lipitor -) 10 mg PO HS [facility] Last Admin: 07/09/19 22:00 Dose: 10 mg Sodium Chloride (Normal Saline -) 1,000 mls @ 100 mls/hr IV ASDIR [facility] Last Admin: 07/10/19 05:40 Dose: 100 mls/hr Vancomycin HCl (Vancomycin 1 Gm Premix -) 1 gm in 200 mls @ 133.333 mls/hr IVPB Q12H [facility] Ampicillin Sodium/Sulbactam (Sodium 3 gm/ Sodium Chloride) 100 mls @ 200 mls/ hr IVPB Q8H-IV [facility] Last Admin: 07/10/19 09:08 Dose: 200 mls/hr Insulin Aspart (Novolog Vial Sliding Scale -) 1 vial SQ TIDAC [facility]; Protocol Last Admin: 07/10/19 06:15 Dose: Not Given Leflunomide (Arava -) 10 mg PO DAILY [facility] Last Admin: 07/10/19 09:09 Dose: 10 mg Losartan Potassium (Cozaar -) 25 mg PO DAILY [facility] Last Admin: 07/10/19 09:11 Dose: 25 mg Methylprednisolone (Medrol -) 4 mg PO DAILY [facility] Last Admin: 07/10/19 09:10 Dose: 4 mg Metoprolol Tartrate (Lopressor -) 25 mg PO DAILY [facility] Last Admin: 07/10/19 09:09 Dose: 25 mg Morphine Sulfate (Morphine Sulfate) 2 mg IVPUSH Q4H PRN PRN Reason: PAIN LEVEL 6-10 Last Admin: 07/09/19 10:51 Dose: 2 mg Non-Formulary Medication (Insulin Glargine,Hum.Rec.Anlog [Basaglar Kwikpen U-100 ]) 10 unit SQ [facility] Last Admin: 07/09/19 22:00 Dose: 10 unit Non-Formulary Medication (Patient's Own Med) 1 each SQ DAILY [facility] Oxycodone HCl (Roxicodone -) 5 mg PO Q8H PRN PRN Reason: PAIN SCALE 1-5 Last Admin: 07/10/19 06:32 Dose: 5 mg Pantoprazole Sodium (Protonix -) 20 mg PO DAILY [facility] Last Admin: 07/10/19 09:09 Dose: 20 mg - Objective Vital Signs: Vital Signs Temperature 98.9 F 07/10/19 06:00 Pulse Rate 92 H 07/10/19 06:00 Respiratory Rate 18 07/10/19 06:00 Blood Pressure 120/60 07/10/19 06:00 O2 Sat by Pulse Oximetry (%) 96 07/09/19 21:00 Constitutional: Yes: No Distress, Calm Cardiovascular: Yes: S1, S2 Respiratory: Yes: Regular, CTA Bilaterally Gastrointestinal: Yes: Normal Bowel Sounds, Soft Musculoskeletal: Yes: WNL Extremities: Yes: Other Neurological: Yes: Alert, Oriented Psychiatric: Yes: Alert, Oriented Labs: CBC, BMP 07/10/19 05:54 07/10/19 05:46 Assessment/Plan Problem List - Problems (1) Cellulitis of left foot Problems reviewed: Yes Code(s): L03.116 - CELLULITIS OF LEFT LOWER LIMB (2) Type 2 diabetes mellitus Problems reviewed: Yes Code(s): E11.9 - TYPE 2 DIABETES MELLITUS WITHOUT COMPLICATIONS (3) Recurrent pulmonary embolism Problems reviewed: Yes Code(s): I26.99 - OTHER PULMONARY EMBOLISM WITHOUT ACUTE COR PULMONALE (4) Rheumatoid arthritis Problems reviewed: Yes Code(s): M06.9 - RHEUMATOID ARTHRITIS, UNSPECIFIED (5) Hypertension Problems reviewed: Yes Code(s): I10 - ESSENTIAL (PRIMARY) HYPERTENSION (6) Hypercholesterolemia Problems reviewed: Yes Code(s): E78.00 - PURE HYPERCHOLESTEROLEMIA, UNSPECIFIED Assessment/Plan continue zosyn rest as per the team monitor wbc
[2019-07-10] MEDS: MORPHINE SULFATE 2 MG/ML VIAL IVPUSH PRN (12:46)
--- NOTE | 2019-07-10 13:05 | CONSULT ---
Consult - text type - Consultation Consultation Note: Podiatry Consultation: 64 year old diabetic male presents for admission for worsening left great toe pain. 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 He notes worsening discoloration, pain to the left great toe. Denies F/V/N/C/SOB/CP. AFebrile. PMHx: hypertension, type 2 diabetes mellitus, rheumatoid arthritis on Enabrel 50 mg subcu every Wednesday, recurrent pulmonary embolism s/p right ventricular thrombus embolectomy in February 2018 at [facility] on lifelong anticoagulation Meds: noted ALL: enalapril JACLYN: L foot: pedal pulses nonpalpable, TG wnl, CFT brisk to toes. There is dry gangrenous change to the medial nail fold of the left hallux. There is significant tenderness to palpation. There is no purulence, no fluctuance, no streaking cellulitis, no signs of acute infection. Wound Cx: staph species ESR: 38 L foot XR: no OM IMp: 64 year old diabetic male with left hallux cellulitis, gangrene 1. IV abx per ID 2. Local wound care 3. For MRI L foot 4. Needs YAYA/PVR 5. Will follow. Thank you for the courtesy of this consultation. Brittni Lemus DPM
[2019-07-10] MEDS: ACETAMINOPHEN 325 MG TABLET (FP) PO PRN (17:33)
--- NOTE | 2019-07-10 17:39 | PN ---
Progress Note (short form) - Note Progress Note: Hospitalist Medicine Resting in bed. States his toenails were clipped recently, and he subsequently developed an infection of his L big toe. C/o pain in the area Vitals 07/10/19 13:52 Temperature 99.7 F H Pulse Rate 76 Respiratory 18 Rate Blood Pressure 117/54 L Physical Exam general: resting in bed, in NAD HEENT: NCAT, PERRLA. +poor dentition neck: supple cardio: S1, S2 RRR. no r/m/g pulm: few crackles B/l. no accessory m usage abdomen: obese, nontender, nondistended LE: +L hallux gangrene, TTP. no fluctuance Laboratory Tests 07/10/19 07/10/19 07/10/19 05:38 05:46 05:54 RBC 4.12 Hgb 12.3 Hct 36.2 Plt Count 218 Sodium 141 Potassium 3.8 Chloride 110 H Carbon Dioxide 25 Anion Gap 6 L BUN 6.9 L Creatinine 1.0 POC Glucometer 123 Random Glucose 116 H Calcium 8.1 L Microbiology 07/09/19 01:30 Wound Gram Stain - Final 07/09/19 01:30 Wound Wound Culture - Preliminary Staphylococcus Species Imaging 07/08/19: L Foot XR: heavy vascular calcifications, calcaneal spurring, bunion formation by first MTP joint and other arthritic changs in toes. swelling, foreign body or soft tissue is not seen. destructive poess suggestive of osteo is not usually delineated 07/09/19: CXR: (-) Assessment/Plan 64M with history of RA, DM2, HTN, HLD, and recurrent PE, presents to the hospital with left foot cellulitis after podiatry debrided left great toe. #Sepsis 2/2 cellulitis of L great toe -currently afebrile, with mild leukocytosis -c/w unasyn (07/08) -f/u cx. wound (+) staph -ESR, CRP elevated. f/u MRI L foot -local wound care -f/u YAYA/PVR testing -morphine PRN for pain control. -podiatry: Dr. Lemus -ID: Dr. Spangler -PT #Constipation -started on senna, colace #DM2 -c/w ISS, BGM ACHS. -glargine 10u SQ HS -pt non-compliant; dietary consult -needs better BGM control < 180, to aid wound healing. #Recurrent PE -c/w eliquis #RA -currently w/o active synovitis. -c/w medrol, leflunomide, enbrel protonix for GI PPX. #HTN- controlled -c/w losartan, metoprolol #HLD -c/w statin #F/E/N d/c IVF continue to follow lytes na controlled/diabetic diet #PPX DVT: on eliquis #Dispo monitoring on med-surg <America Song - Last Filed: 07/10/19 17:53> - Note Progress Note: Seen and examined; please see resident note for further historical information. I personally verified all cyr historical information and exam findings. Personally interpreted all imaging and diagnostics and reviewed appropriate consults. I reviewed all labs and vital signs as per resident note and EMR as documented. I agree with the above assessment and plan unless supplemented by myself in the following. No new complaints, pain is controlled, continuing on antibiotics and following up the MRI report. If negative imaging, can likely transition to p.o. antibiotics if cleared by infectious disease and podiatry and follow-up as outpatient. Ruling out any underlying occult peripheral arterial disease. Follow-up dietary consult for uncontrolled diabetes mellitus 2. 10 item review of systems was completed and is negative aside from the history of present illness unless indicated above VS, labs, imaging reviewed NAD, AAO, resting comfortably in bed. RRR s1/2 no mgr Normal muscle tone, moves all 5 extremities with normal apparent strength Neck is supple, trachea midline, no adilson LN Lungs CTAB with sym expansion NT ND +BS no adilson organomegaly CN2-12 wnl; no FND NC AT EOMI PERRLA Normal mood, appropriate behavior, euthymic affect No skin breakdown or rashes noted; indicated digit with some breakdown, but no new purulence or signs of necrotizing fasciitis, etc. Cellulitis is evident with callus formation and stereotyped changes associated with diabetic foot ulcer. YAYA and vascular studies are pending, repeat ESR and CRP are pending. Assessment and plan: Patient with a complicated rheumatologic history involving rheumatoid arthritis , no active synovitis per the patient, presents to the emergency room with a complaint of potential osteomyelitis with recent podiatry nail clipping causing damage to the area around his digit. MRI is pending he is on broad-spectrum antibiotics and we are working to control his sugars, ruling out any peripheral arterial disease and will involve vascular surgery on a as needed basis. We will continue with wound care, diet consult, monitoring him on the floor. Problems include: Diabetic foot wound, rule out osteomyelitis Uncontrolled diabetes mellitus 2 Recurrent PE, currently stable, on Eliquis Rheumatoid arthritis, no current synovitis, continue with Medrol, leflunomide, Enbrel, Protonix for GI prophylaxis Hypertension, controlled, continue losartan and metoprolol Hyperlipidemia, controlled, continue with home statin follow-up outpatient fasting lipid profile. <Marcial Vargas - Last Filed: 07/11/19 17:24>
[2019-07-10] MEDS: DOCUSATE SODIUM 100 MG CAPSULE (FP) PO SCH (17:47)
[2019-07-10] MEDS: SENNOSIDES 8.6MG TABLET (FP) PO SCH ×2 (17:48→21:31)
[2019-07-10] MEDS: ATORVASTATIN CA 10 MG TABLET (FP) PO SCH (21:31)
[2019-07-10] MEDS: PATIENT'S OWN MEDICATION (NON-FORMULARY) (Insulin Glargine,Hum.Rec.Anlog [Basaglar Kwikpen SQ SCH (21:41)
[2019-07-11] MEDS: AMPICILLIN NA/SULBACTAM NA 3 GM in SODIUM CHLORIDE 100 ML IVPB SCH ×3 (01:38→17:24)
[2019-07-11] MEDS: MORPHINE SULFATE 2 MG/ML VIAL IVPUSH PRN (05:45)
[2019-07-11] MEDS: INSULIN SLIDING SCALE (NOVOLOG) 1 VIAL SQ SCH ×3 (06:00→17:23)
[2019-07-11] MEDS ORDERED: PT OWN MED DRAWER 7, Y5N ONE ×2 (06:51→16:36)
[2019-07-11 08:37] LABS: BASO % 0.7 % (0-2.0); EOS % 3.5 % (0-4.5); HEMATOCRIT 39.9 % (35.4-49); HEMOGLOBIN 13.2 GM/dL (11.7-16.9); LYMPH % 19.3 % (8-40); MCH 29.4 pg (25.7-33.7); MCHC 33.2 g/dl (32.0-35.9); MEAN CELL VOLUME 88.6 fl (80-96); MEAN PLT VOLUME 8.8 fl (7.5-11.1); MONO % 12.5 % (3.8-10.2); PLATELET COUNT 294 K/MM3 (134-434); RDW 12.9 % (11.9-15.9); WHITE BLOOD COUNT 12.2 K/mm3 (4.0-10.0)
[2019-07-11] MEDS: METOPROLOL TARTRATE 25 MG TABLET (FP) PO SCH (09:05)
[2019-07-11] MEDS: PANTOPRAZOLE 20 MG TABLET (FP) PO SCH (09:05)
[2019-07-11] MEDS: APIXABAN 5 MG TABLET PO SCH ×2 (09:05→21:25)
[2019-07-11] MEDS: SENNOSIDES 8.6MG TABLET (FP) PO SCH ×2 (09:05→21:24)
[2019-07-11] MEDS: DOCUSATE SODIUM 100 MG CAPSULE (FP) PO SCH (09:05)
[2019-07-11] MEDS: LOSARTAN POTASSIUM 25 MG TABLET PO SCH (09:05)
[2019-07-11] MEDS: methylPREDNISolone 4 MG TABLET PO SCH (09:06)
[2019-07-11] MEDS: LEFLUNOMIDE 10 MG TABLET PO SCH (09:06)
[2019-07-11 09:25] LABS: BLOOD UREA NITROGEN 8.7 mg/dL (7-18); CALCIUM 8.7 mg/dL (8.5-10.1); CREATININE 1.1 mg/dL (0.55-1.3); MAGNESIUM 2.2 mg/dL (1.8-2.4); PHOSPHOROUS 2.6 mg/dL (2.5-4.9); POTASSIUM 3.6 mmol/L (3.5-5.1)
[2019-07-11] MEDS: oxyCODONE HCL 5 MG TABLET PO PRN (13:55)
[2019-07-11] MEDS: ACETAMINOPHEN 325 MG TABLET (FP) PO PRN (13:56)
[2019-07-11] MEDS ORDERED: COLCHICINE 0.6 MG CAP PO ONE (15:45)
--- NOTE | 2019-07-11 16:11 | PN ---
Progress Note, Physician History of Present Illness: Pt is alert, without distress. States he has less pain in Lt foot. Afebrile now 24hrs. Wbc still mildly elevated. MRI results noted. - Current Medication List Current Medications: Active Medications Acetaminophen (Tylenol -) 325 mg PO Q8H PRN PRN Reason: PAIN SCALE 1-5 Last Admin: 07/11/19 13:56 Dose: 325 mg Apixaban (Eliquis -) 5 mg PO BID [facility] Last Admin: 07/11/19 09:05 Dose: 5 mg Atorvastatin Calcium (Lipitor -) 10 mg PO HS [facility] Last Admin: 07/10/19 21:31 Dose: 10 mg Colchicine (Colcrys) 0.3 mg PO ONCE ONE Stop: 07/11/19 15:46 Docusate Sodium (Colace -) 100 mg PO DAILY [facility] Last Admin: 07/11/19 09:05 Dose: 100 mg Ampicillin Sodium/Sulbactam (Sodium 3 gm/ Sodium Chloride) 100 mls @ 200 mls/ hr IVPB Q8H-IV [facility] Last Admin: 07/11/19 09:05 Dose: 200 mls/hr Insulin Aspart (Novolog Vial Sliding Scale -) 1 vial SQ TIDAC [facility]; Protocol Last Admin: 07/11/19 11:54 Dose: 2 units Leflunomide (Arava -) 10 mg PO DAILY [facility] Last Admin: 07/11/19 09:06 Dose: 10 mg Losartan Potassium (Cozaar -) 25 mg PO DAILY [facility] Last Admin: 07/11/19 09:05 Dose: 25 mg Methylprednisolone (Medrol -) 4 mg PO DAILY [facility] Last Admin: 07/11/19 09:06 Dose: 4 mg Metoprolol Tartrate (Lopressor -) 25 mg PO DAILY [facility] Last Admin: 07/11/19 09:05 Dose: 25 mg Morphine Sulfate (Morphine Sulfate) 2 mg IVPUSH Q4H PRN PRN Reason: PAIN LEVEL 6-10 Last Admin: 07/11/19 05:45 Dose: 2 mg Non-Formulary Medication (Insulin Glargine,Hum.Rec.Anlog [Basaglar Kwikpen U-100 ]) 10 unit SQ HS [facility] Last Admin: 07/10/19 21:41 Dose: 10 unit Oxycodone HCl (Roxicodone -) 5 mg PO Q8H PRN PRN Reason: PAIN SCALE 1-5 Last Admin: 07/11/19 13:55 Dose: 5 mg Pantoprazole Sodium (Protonix -) 20 mg PO DAILY [facility] Last Admin: 07/11/19 09:05 Dose: 20 mg Senna (Senna -) 1 tab PO BID [facility] Last Admin: 07/11/19 09:05 Dose: 1 tab - Objective Vital Signs: Vital Signs Temperature 98.6 F 07/11/19 14:45 Pulse Rate 75 07/11/19 14:45 Respiratory Rate 18 07/11/19 14:45 Blood Pressure 120/57 L 07/11/19 14:45 O2 Sat by Pulse Oximetry (%) 97 07/11/19 09:00 Constitutional: Yes: No Distress, Calm Cardiovascular: Yes: Regular Rate and Rhythm Respiratory: Yes: Regular Gastrointestinal: Yes: Normal Bowel Sounds, Soft Genitourinary: Yes: WNL Extremities: Yes: Erythema (Lt toe mild tenderness/slightly discolored, no active drainage at this time) Neurological: Yes: Alert Labs: CBC, BMP 07/11/19 07:35 07/11/19 07:35 Microbiology 07/09/19 01:30 Wound Gram Stain - Final 07/09/19 01:30 Wound Wound Culture - Preliminary Staphylococcus Latex Coag Pos 07/09/19 19:10 Blood - Peripheral Venous Blood Culture - Preliminary NO GROWTH OBTAINED AFTER 24 HOURS, INCUBATION TO CONTINUE FOR 4 DAYS. 07/09/19 19:05 Blood - Peripheral Venous Blood Culture - Preliminary NO GROWTH OBTAINED AFTER 24 HOURS, INCUBATION TO CONTINUE FOR 4 DAYS. - ....Imaging X-ray: Report Reviewed Ultrasound: Pending MRI: Report Reviewed Problem List - Problems (1) Cellulitis of left foot Code(s): L03.116 - CELLULITIS OF LEFT LOWER LIMB (2) Hypertension Code(s): I10 - ESSENTIAL (PRIMARY) HYPERTENSION (3) Rheumatoid arthritis Code(s): M06.9 - RHEUMATOID ARTHRITIS, UNSPECIFIED (4) Type 2 diabetes mellitus Code(s): E11.9 - TYPE 2 DIABETES MELLITUS WITHOUT COMPLICATIONS (5) Arthritis Code(s): M19.90 - UNSPECIFIED OSTEOARTHRITIS, UNSPECIFIED SITE Assessment/Plan Lt toe infection/cellulitis - +staph aureus Fever Leukocytosis RA -- continue Unasyn -- blood cultures neg 24h, afebrile x 24 hrs -- wbc still mildly elevated, continue monitor -- MRI without findings suggestive of OM -- follow up LLE US result -- vascular workup -- Podiatry following continue monitor vitals
--- NOTE | 2019-07-11 16:36 | PN ---
Progress Note (short form) - Note Progress Note: Podiatry F/U: Seen/evaluated at bedside NAD. Pain is slowly improving; denies F/V/N/C/SOB/ CP. Afebrile. Arterial studies and MRI obtained. JACLYN: L foot: pedal pulses nonpalpable, TG wnl, CFT brisk to toes. There is dry necrotic eschar at the medial nail fold, no purulent drainage, no fluctuance, no streaking cellulitis, no soft tissue crepitus, no signs of active infection. Mild tenderness to palpation. MRI L foot: no evidence of osteomyelitis arterial studies: report pending Imp: 64 year old diabetic male with cellulitis necrotic nail fold left great toe 1. IV abx per ID 2. MRI reviewed with patient 3. F/u PVR's arterial studies 4. Will follow Brittni Lemus DPM
--- NOTE | 2019-07-11 17:58 | PN ---
Progress Note (short form) - Note Progress Note: Hospitalist Medicine Continues to have pain in his L great toe, but states that it has improved. Vitals 07/11/19 14:45 Temperature 98.6 F Pulse Rate 75 Respiratory 18 Rate Blood Pressure 120/57 L Physical Exam general: resting in bed, in NAD HEENT: NCAT, PERRLA. +poor dentition neck: supple cardio: S1, S2 RRR. no r/m/g pulm: few crackles B/l. no accessory m usage abdomen: obese, nontender, nondistended LE: +L hallux gangrene surrounding nailbed , TTP. no fluctuance. no drainage Laboratory Tests Microbiology 07/09/19 01:30 Wound Gram Stain - Final 07/09/19 01:30 Wound Wound Culture - Preliminary Staphylococcus Species Imaging 07/08/19: L Foot XR: heavy vascular calcifications, calcaneal spurring, bunion formation by first MTP joint and other arthritic changs in toes. swelling, foreign body or soft tissue is not seen. destructive poess suggestive of osteo is not usually delineated 07/09/19: CXR: (-) 07/10/19: art doppler: noncontrast calculable ABIs d/t noncompressible vessels d /t medial calcinosis. hemodynamically significant bilateral infrapopliteal dz. 07/11/19: MRI L foot: no evidence of osteomyelitis. severe degenerative changes involving the first MTP joint. no evidence of fx or malalignment. Assessment/Plan 64M with history of RA, DM2, HTN, HLD, and recurrent PE, presents to the hospital with left foot cellulitis after podiatry debrided left great toe. #Sepsis 2/2 cellulitis of L great toe -c/w unasyn (07/08) -f/u cx. wound (+) staph -without evidence of osteo -local wound care -f/u YAYA/PVR testing ; w/ hemodynam sig dz. vascular consult -tylenol PRN for pain control. -podiatry: Dr. Lemus -ID: Dr. Spangler -vascular: Dr. Pearl -PT #hx 1st MTP destructive changes - Rheum consulted by team: Dr. Marino #Constipation -on senna, colace #DM2 -c/w ISS, BGM ACHS. -glargine 10u SQ HS -dietary consulted, added prosource. DM education given -needs better BGM control < 180, to aid wound healing. #Recurrent PE -c/w eliquis #RA -currently w/o active synovitis. -c/w medrol, leflunomide, enbrel protonix for GI PPX. #HTN- controlled -c/w losartan, metoprolol #HLD -c/w statin #F/E/N off IVF continue to follow lytes na controlled/diabetic diet #PPX DVT: on eliquis GI: on protonix #Dispo monitoring on med-surg <America Song - Last Filed: 07/11/19 17:41> - Note Progress Note: Seen and examined; please see resident note for further historical information. I personally verified all cyr historical information and exam findings. Personally interpreted all imaging and diagnostics and reviewed appropriate consults. I reviewed all labs and vital signs as per resident note and EMR as documented. I agree with the above assessment and plan unless supplemented by myself in the following. Imaging without current evidence of osteomyelitis, following up with podiatry recommendations. Vascular surgery and ID are also on board. Appreciate subspecialty consultations. Destructive changes could also be seen with the rheumatoid arthritis which is known diagnosis. We will continue the patient on their Medrol, leflunomide, and Enbrel. She will be on Protonix for GI prophylaxis and we will follow-up with further subspecialty recommendations. 10 item review of systems was completed and is negative aside from the history of present illness unless indicated above VS, labs, imaging reviewed NAD, AAO, resting comfortably in bed. RRR s1/2 no mgr Normal muscle tone, moves all 5 extremities with normal apparent strength Neck is supple, trachea midline, no adilson LN Lungs CTAB with sym expansion NT ND +BS no adilson organomegaly CN2-12 wnl; no FND NC AT EOMI PERRLA Normal mood, appropriate behavior, euthymic affect No skin breakdown or rashes noted; indicated digit with some breakdown, but no new purulence or signs of necrotizing fasciitis, etc. Cellulitis is evident with callus formation and stereotyped changes associated with diabetic foot ulcer. Patient had a left foot x-ray on 07/08 that was negative but did endorse bunion formation by the first metatarsal phalangeal joint and other arthritic changes in the toes, no foreign bodies were seen. Chest x-ray without acute disease. Arterial Doppler with hemodynamically significant bilateral infrapopliteal disease, to be followed up with Dr. Pearl. States can be done as outpatient. MRI of the left foot reveals no evidence of osteomyelitis with severe degenerative changes involving the first MTP joint and the area consistent with a bunion formation. There is no evidence of fracture or malalignment noted per the radiology read. Assessment and plan: Patient with a complicated rheumatologic history involving rheumatoid arthritis , no active synovitis per the patient, presents to the emergency room with a complaint of potential osteomyelitis with recent podiatry nail clipping causing damage to the area around his digit. MRI is pending he is on broad-spectrum antibiotics and we are working to control his sugars, ruling out any peripheral arterial disease and will involve vascular surgery on a as needed basis. We will continue with wound care, diet consult, monitoring him on the floor. Problems include: Diabetic foot wound, rule out osteomyelitis Uncontrolled diabetes mellitus 2 Recurrent PE, currently stable, on Eliquis Rheumatoid arthritis, no current synovitis, continue with Medrol, leflunomide, Enbrel, Protonix for GI prophylaxis Hypertension, controlled, continue losartan and metoprolol Hyperlipidemia, controlled, continue with home statin follow-up outpatient fasting lipid profile. Full code <Marcial Vargas - Last Filed: 08/06/19 15:56>
[2019-07-11 19:39] LABS: PH,URINE 7.5 (5.0-8.0); URINE APPEARANCE CLEAR; URINE BILIRUBIN NEGATIVE (NEGATIVE); URINE COLOR YELLOW; URINE GLUCOSE (UA) 2+ (NEGATIVE); URINE KETONE NEGATIVE (NEGATIVE); URINE LEUK ESTERASE NEGATIVE (NEGATIVE); URINE NITRITE NEGATIVE (NEGATIVE); URINE PROTEIN NEGATIVE (NEGATIVE); URINE UROBILINOGEN 0.2 mg/dL (0.2-1.0)
[2019-07-11] MEDS: PATIENT'S OWN MEDICATION (NON-FORMULARY) (Insulin Glargine,Hum.Rec.Anlog [Basaglar Kwikpen SQ SCH (21:24)
[2019-07-11] MEDS: ATORVASTATIN CA 10 MG TABLET (FP) PO SCH (21:24)
[2019-07-11] MEDS ORDERED: ACETAMINOPHEN 325 MG TABLET (FP) PO PRN (22:00)
[2019-07-12] MEDS ORDERED: PT OWN MED DRAWER 7, Y5N ONE ×3 (02:24→17:33)
[2019-07-12] MEDS: AMPICILLIN NA/SULBACTAM NA 3 GM in SODIUM CHLORIDE 100 ML IVPB SCH ×3 (02:26→17:36)
[2019-07-12] MEDS: INSULIN SLIDING SCALE (NOVOLOG) 1 VIAL SQ SCH ×3 (06:01→17:35)
[2019-07-12] MEDS: PANTOPRAZOLE 20 MG TABLET (FP) PO SCH (09:07)
[2019-07-12] MEDS: METOPROLOL TARTRATE 25 MG TABLET (FP) PO SCH (09:07)
[2019-07-12] MEDS: SENNOSIDES 8.6MG TABLET (FP) PO SCH ×2 (09:07→21:42)
[2019-07-12] MEDS: LOSARTAN POTASSIUM 25 MG TABLET PO SCH (09:07)
[2019-07-12] MEDS: APIXABAN 5 MG TABLET PO SCH ×2 (09:07→21:43)
[2019-07-12] MEDS: methylPREDNISolone 4 MG TABLET PO SCH (09:07)
[2019-07-12] MEDS: DOCUSATE SODIUM 100 MG CAPSULE (FP) PO SCH (09:07)
[2019-07-12] MEDS: LEFLUNOMIDE 10 MG TABLET PO SCH (09:08)
--- NOTE | 2019-07-12 09:35 | CONSULT ---
- Consultation REQUESTING PROVIDER: CONSULT REQUEST: We have been asked to surgically evaluate this patient for vascular evaluation. PCP:Jagdish Sweet MD HISTORY OF PRESENT ILLNESS: 64 y/o M w/ PMHx htn, IIDM, RA on Enbrel, h/o R ventricular thrombus embolectomy in February 2018 at [facility] on lifelong anticoagulation, now a/w L great toe pain/ulcer. Pt reports he was seen by his DPM last for a hang nail. She was able to remove the hangnail successful but pt was left with a wound and pain. Reports Wednesday the pain worsened and he came to the ED Wednesday for evaluation. Denies fevers/chills at home. At baseline, lives with family, ambulates without assistive devices. 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 Denies h/o claudication, vascular evaluation/interventions in the past. PMHx: as above PSHx: Open heart surgery for right ventricular embolus in February 2018 [facility] Home Medications Medication Instructions Recorded Insulin Lispro [Admelog] 10 unit SQ TID 04/27/18 Pravastatin Sodium 10 mg PO HS 04/28/18 Etanercept [Enbrel] 50 mg SQ WEEKLY 08/21/18 Metformin HCl [Glucophage] 100 mg PO AM 08/21/18 Methylprednisolone [Medrol -] 4 mg PO DAILY 08/21/18 Metoprolol Tartrate 25 mg PO DAILY 08/21/18 Apixaban [Eliquis] 5 mg PO BID 01/17/19 Ferrous Sulfate 325 mg PO DAILY 01/17/19 Insulin Glargine,Hum.rec.anlog 10 unit SQ HS 01/17/19 [Basaglar Kwikpen U-100] Leflunomide 10 mg PO DAILY 01/17/19 Calcium Carbonate [Oysco-500] 500 mg PO DAILY 07/08/19 Losartan Potassium [Cozaar -] 25 mg PO DAILY 07/08/19 Omeprazole 20 mg PO DAILY 07/08/19 Allergies Allergy/AdvReac Type Severity Reaction Status Date / Time enalapril Allergy Difficulty Verified 07/08/19 06:17 Breathing REVIEW OF SYSTEMS: CONSTITUTIONAL: Absent: fever, chills CARDIOVASCULAR: Absent: chest pain, syncope, RESPIRATORY: Absent: cough GASTROINTESTINAL: Absent: abdominal pain PHYSICAL EXAM: GENERAL: Awake, alert, and fully oriented, in no acute distress. HEAD: Normal with no signs of trauma. LOWER EXTREMITIES: RLE with no ulcers or lesion. LLE with dry ulcer at medial aspect of great toe, lateral portion of nail removed. Mild erythema extending to forefoot. +ttp over ulcer. No drainage, no foul odor Vasc:2+ b/l fem, 2+ r pop, L pop with biphasic signal, r dp/pt 1+, L at/pt with biphasic signal. Vital Signs Temperature 98 F 07/12/19 09:17 Pulse Rate 83 07/12/19 09:17 Respiratory Rate 18 07/12/19 09:17 Blood Pressure 130/73 07/12/19 09:17 O2 Sat by Pulse Oximetry (%) 97 07/11/19 21:00 Lab Results WBC 12.2 K/mm3 (4.0-10.0) H 07/11/19 07:35 RBC 4.50 M/mm3 (4.00-5.60) 07/11/19 07:35 Hgb 13.2 GM/dL (11.7-16.9) 07/11/19 07:35 Hct 39.9 % (35.4-49) 07/11/19 07:35 MCV 88.6 fl (80-96) 07/11/19 07:35 MCHC 33.2 g/dl (32.0-35.9) 07/11/19 07:35 RDW 12.9 % (11.9-15.9) 07/11/19 07:35 Plt Count 294 K/MM3 (134-434) D 07/11/19 07:35 Sodium 141 mmol/L (136-145) 07/11/19 07:35 Potassium 3.6 mmol/L (3.5-5.1) 07/11/19 07:35 Chloride 107 mmol/L (98-107) 07/11/19 07:35 Carbon Dioxide 24 mmol/L (21-32) 07/11/19 07:35 Anion Gap 11 MMOL/L (8-16) 07/11/19 07:35 BUN 8.7 mg/dL (7-18) 07/11/19 07:35 Creatinine 1.1 mg/dL (0.55-1.3) 07/11/19 07:35 Random Glucose 127 mg/dL (74-106) H 07/11/19 07:35 Calcium 8.7 mg/dL (8.5-10.1) 07/11/19 07:35 A/P: 64 y/o M w/ PMHx htn, IIDM, RA on Enbrel, h/o R ventricular thrombus embolectomy in February 2018 at [facility] on lifelong anticoagulation, now a/w L great toe pain/ulcer after hangnail removal. afebrile, +leukocytosis L foot with stable ulcer, mild cellulitis Concern for tibial disease on renata/pvr -Arterial duplex ordered, will f/u -Betadine solution to toe -Abx per ID d/w attending Dr Pearl
[2019-07-12] MEDS ORDERED: POVIDONE-IODINE 10% SOLN 118 ML BOTTLE TP ONE (10:08)
[2019-07-12] MEDS ORDERED: MORPHINE SULFATE 2 MG/ML VIAL IVPUSH PRN (11:30)
[2019-07-12] MEDS ORDERED: INSULIN (NOVOLOG) ASPART 100 UNITS/ML 10ML VIAL ONE (11:31)
--- NOTE | 2019-07-12 12:15 | PN ---
Progress Note, Physician History of Present Illness: stable afebrile - Current Medication List Current Medications: Active Medications Acetaminophen (Tylenol -) 650 mg PO Q6H PRN PRN Reason: PAIN LEVEL 4 - 6 Apixaban (Eliquis -) 5 mg PO BID [facility] Last Admin: 07/12/19 09:07 Dose: 5 mg Atorvastatin Calcium (Lipitor -) 10 mg PO HS [facility] Last Admin: 07/11/19 21:24 Dose: 10 mg Docusate Sodium (Colace -) 100 mg PO DAILY [facility] Last Admin: 07/12/19 09:07 Dose: 100 mg Ampicillin Sodium/Sulbactam (Sodium 3 gm/ Sodium Chloride) 100 mls @ 200 mls/ hr IVPB Q8H-IV [facility] Last Admin: 07/12/19 09:07 Dose: 200 mls/hr Insulin Aspart (Novolog Vial Sliding Scale -) 1 vial SQ TIDAC [facility]; Protocol Last Admin: 07/12/19 06:01 Dose: Not Given Leflunomide (Arava -) 10 mg PO DAILY [facility] Last Admin: 07/12/19 09:08 Dose: 10 mg Losartan Potassium (Cozaar -) 25 mg PO DAILY [facility] Last Admin: 07/12/19 09:07 Dose: 25 mg Methylprednisolone (Medrol -) 4 mg PO DAILY [facility] Last Admin: 07/12/19 09:07 Dose: 4 mg Metoprolol Tartrate (Lopressor -) 25 mg PO DAILY [facility] Last Admin: 07/12/19 09:07 Dose: 25 mg Non-Formulary Medication (Insulin Glargine,Hum.Rec.Anlog [Tami Stiles U-100 ]) 10 unit SQ [facility] Last Admin: 07/11/19 21:24 Dose: 10 unit Pantoprazole Sodium (Protonix -) 20 mg PO DAILY [facility] Last Admin: 07/12/19 09:07 Dose: 20 mg Senna (Senna -) 1 tab PO BID [facility] Last Admin: 07/12/19 09:07 Dose: 1 tab Tramadol HCl (Ultram -) 50 mg PO Q8H PRN PRN Reason: PAIN LEVEL 7 - 10 - Objective Vital Signs: Vital Signs Temperature 98 F 07/12/19 09:17 Pulse Rate 83 07/12/19 09:17 Respiratory Rate 18 07/12/19 09:17 Blood Pressure 130/73 07/12/19 09:17 O2 Sat by Pulse Oximetry (%) 97 07/12/19 09:00 Constitutional: Yes: No Distress, Calm Cardiovascular: Yes: S1, S2 Respiratory: Yes: Regular, CTA Bilaterally Gastrointestinal: Yes: Normal Bowel Sounds, Soft Musculoskeletal: Yes: WNL Extremities: Yes: Other Neurological: Yes: Alert, Oriented Psychiatric: Yes: Alert, Oriented Labs: CBC, BMP 07/11/19 07:35 07/11/19 07:35 Assessment/Plan Problem List - Problems (1) Cellulitis of left foot Problems reviewed: Yes Code(s): L03.116 - CELLULITIS OF LEFT LOWER LIMB (2) Type 2 diabetes mellitus Problems reviewed: Yes Code(s): E11.9 - TYPE 2 DIABETES MELLITUS WITHOUT COMPLICATIONS (3) Recurrent pulmonary embolism Problems reviewed: Yes Code(s): I26.99 - OTHER PULMONARY EMBOLISM WITHOUT ACUTE COR PULMONALE (4) Rheumatoid arthritis Problems reviewed: Yes Code(s): M06.9 - RHEUMATOID ARTHRITIS, UNSPECIFIED (5) Hypertension Problems reviewed: Yes Code(s): I10 - ESSENTIAL (PRIMARY) HYPERTENSION (6) Hypercholesterolemia Problems reviewed: Yes Code(s): E78.00 - PURE HYPERCHOLESTEROLEMIA, UNSPECIFIED Assessment/Plan continue abx check crp wound care will d/w the team
--- NOTE | 2019-07-12 12:38 | PN ---
Progress Note (short form) - Note Progress Note: Podiatry F/U: Seen/evaluated at bedside NAD. Denies F/V/N/C/SOB/CP. AFebrile. Going for arterial duplex today. JACLYN: L foot: medial nail fold necrosis with no purulence, no fluctuance, no streaking cellulitis, no signs of active infection. No ischemic changes to the foot. Imp: 64 year old diabetic, PVD male with left great toe nail fold necrosis 1. IV abx per ID 2. Continue local care 3. Vascular w/u in progress 4. Will follow Brittni Lemus DPM
[2019-07-12] MEDS: traMADol HCL 50 MG TABLET PO PRN ×2 (13:10→21:41)
--- NOTE | 2019-07-12 13:55 | PN ---
Progress Note (short form) - Note Progress Note: Hospitalist Medicine Still with pain in L great toe. ambulating with mild difficulty per pt Vitals 07/12/19 09:17 Temperature 98 F Pulse Rate 83 Respiratory 18 Rate Blood Pressure 130/73 Physical Exam general: resting in bed, in NAD HEENT: NCAT, PERRLA. +poor dentition neck: supple cardio: S1, S2 RRR. no r/m/g pulm: few crackles B/l. no accessory m usage abdomen: obese, nontender, nondistended LE: +L hallux gangrene surrounding nailbed , TTP. no fluctuance. no drainage. no erythema Laboratory Tests 07/11/19 07/11/19 07:35 07:35 WBC 12.2 H Hgb 13.2 Hct 39.9 Plt Count 294 D Sodium 141 Potassium 3.6 Chloride 107 Carbon Dioxide 24 Anion Gap 11 BUN 8.7 Creatinine 1.1 Random Glucose 127 H Calcium 8.7 Phosphorus 2.6 Magnesium 2.2 Microbiology 07/09/19 01:30 Wound Gram Stain - Final 07/09/19 01:30 Wound Wound Culture - Final Staphylococcus Aureus 07/09/19 19:10 Blood - Peripheral Venous Blood Culture - Preliminary NO GROWTH OBTAINED AFTER 48 HOURS, INCUBATION TO CONTINUE FOR 3 DAYS. 07/09/19 19:05 Blood - Peripheral Venous Blood Culture - Preliminary NO GROWTH OBTAINED AFTER 48 HOURS, INCUBATION TO CONTINUE FOR 3 DAYS. Imaging 07/08/19: L Foot XR: heavy vascular calcifications, calcaneal spurring, bunion formation by first MTP joint and other arthritic changs in toes. swelling, foreign body or soft tissue is not seen. destructive poess suggestive of osteo is not usually delineated 07/09/19: CXR: (-) 07/10/19: art doppler: noncontrast calculable ABIs d/t noncompressible vessels d /t medial calcinosis. hemodynamically significant bilateral infrapopliteal dz. 07/11/19: MRI L foot: no evidence of osteomyelitis. severe degenerative changes involving the first MTP joint. no evidence of fx or malalignment. Assessment/Plan 64M with history of RA, DM2, HTN, HLD, and recurrent PE, presents to the hospital with left foot cellulitis after podiatry debrided left great toe. #Sepsis 2/2 cellulitis of L great toe -c/w unasyn (07/08); covered by c+s -f/u cx. wound (+) MSSA -without evidence of osteo -local wound care, betadine -f/u YAYA/PVR testing ; w/ hemodynam sig dz. vascular consult -tylenol PRN, tramadol PRN (7-10 scale) for pain control. -f/u CRP -f/u art duplex -podiatry: Dr. Lemus -ID: Dr. Spangler -vascular: Dr. Pearl -PT #hx 1st MTP destructive changes - Rheum consulted by team: Dr. Marino #Constipation -on senna, colace #DM2 -c/w ISS, BGM ACHS. -glargine 10u SQ HS -dietary consulted, added prosource. DM education given -needs better BGM control < 180, to aid wound healing. #Recurrent PE -c/w eliquis #RA -currently w/o active synovitis. -c/w medrol, leflunomide, enbrel protonix for GI PPX. #HTN- controlled -c/w losartan, metoprolol #HLD -c/w statin #F/E/N off IVF continue to follow lytes na controlled/diabetic diet #PPX DVT: on eliquis GI: on protonix #Dispo monitoring on med-surg on IV abx
--- NOTE | 2019-07-12 14:23 | PN ---
Teaching Attending Note Name of Resident: America Song ATTENDING PHYSICIAN STATEMENT I saw and evaluated the patient. I reviewed the resident's note and discussed the case with the resident. I agree with the resident's findings and plan as documented. SUBJECTIVE: Patient reports left 1st toe is left painful. OBJECTIVE: Vital Signs Period Temp Pulse Resp BP Sys/Dawson Pulse Ox Last 24 Hr 98 F-98.7 F 68-83 18-20 114-147/57-73 97-97 HEART: S1S2, RRR LUNGS: Clear ABDOMEN: Soft, non-tender, non-distended, normal BS EXTREMITIES: Left 1st toe swollen and discolored Laboratory Results - last 24 hr 07/11/19 07/11/19 07/11/19 16:30 18:45 19:30 ESR 51 H POC Glucometer 279 Urine Color Yellow Urine Appearance Clear Urine pH 7.5 Ur Specific Fletcher 1.007 L Urine Protein Negative Urine Glucose (UA) 2+ H Urine Ketones Negative Urine Blood Negative Urine Nitrite Negative Urine Bilirubin Negative Urine Urobilinogen 0.2 Ur Leukocyte Esterase Negative 07/11/19 07/12/19 07/12/19 21:22 05:29 11:13 ESR POC Glucometer 192 103 175 Urine Color Urine Appearance Urine pH Ur Specific Fletcher Urine Protein Urine Glucose (UA) Urine Ketones Urine Blood Urine Nitrite Urine Bilirubin Urine Urobilinogen Ur Leukocyte Esterase Current Medications Generic Name Dose Route Start Last Admin Trade Name Freq PRN Reason Stop Dose Admin Acetaminophen 650 mg 07/12/19 11:30 Tylenol - PO Q6H PRN PAIN LEVEL 4 - 6 Apixaban 5 mg 07/08/19 22:00 07/12/19 09:07 Eliquis - PO 5 mg BID ZAIN Administration Atorvastatin Calcium 10 mg 07/08/19 22:00 07/11/19 21:24 Lipitor - PO 10 mg HS ZAIN Administration Docusate Sodium 100 mg 07/10/19 17:30 07/12/19 09:07 Colace - PO 100 mg DAILY ZAIN Administration Ampicillin Sodium/Sulbactam 100 mls @ 200 mls/hr 07/08/19 18:00 07/12/19 09: 07 Sodium 3 gm/ Sodium Chloride IVPB 200 mls/hr Q8H-IV [facility] Administration Insulin Aspart 1 vial 07/08/19 16:30 07/12/19 13:10 Novolog Vial Sliding Scale - SQ 2 units TIDAC ZAIN Administration Protocol Leflunomide 10 mg 07/09/19 10:00 07/12/19 09:08 Arava - PO 10 mg DAILY ZAIN Administration Losartan Potassium 25 mg 07/09/19 10:00 07/12/19 09:07 Cozaar - PO 25 mg DAILY ZAIN Administration Methylprednisolone 4 mg 07/09/19 10:00 07/12/19 09:07 Medrol - PO 4 mg DAILY [facility] Administration Metoprolol Tartrate 25 mg 07/08/19 13:00 07/12/19 09:07 Lopressor - PO 25 mg DAILY [facility] Administration Non-Formulary Medication 10 unit 07/08/19 22:00 07/11/19 21:24 Insulin Glargine,Hum.Rec.Anlog [Basagljosiah Stiles U-100] SQ 10 unit HS [facility] Administration Pantoprazole Sodium 20 mg 07/09/19 10:00 07/12/19 09:07 Protonix - PO 20 mg DAILY [facility] Administration Senna 1 tab 07/10/19 17:31 07/12/19 09:07 Senna - PO 1 tab BID [facility] Administration Tramadol HCl 50 mg 07/12/19 11:47 07/12/19 13:10 Ultram - PO 50 mg Q8H PRN Administration PAIN LEVEL 7 - 10 ASSESSMENT AND PLAN: This is a 64 year old man with a history of HTN, hyperlipidemia, type 2 DM, RA, recurrent PE who presented to the ED with pain and swelling of his left foot after debridement by podiatry. 1. Left 1st toe cellulitis - Wound culture growing MSSA - Continue Unasyn 2. Possible PAD - Arterial duplex pending 3. 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 HTN - Continue Cozaar, Lopressor 5. Hyperlipidemia - Continue Lipitor 6. Type 2 DM - Continue Basaglar, Novolog sliding scale 7. History of PEs - Continue Eliquis
[2019-07-12] MEDS: ACETAMINOPHEN 325 MG TABLET (FP) PO PRN (18:14)
--- NOTE | 2019-07-12 21:37 | CONSULT ---
Consult Consult Specialty:: Rheumatology - History of Present Illness History of Present Illness: 64 year old male with history of hypertension, type 2 diabetes mellitus, recurrent pulmonary embolism s/p right ventricular thrombus embolectomy (February 2018) on anticoagulation, chronic low back pain and rheumatoid arthritis on Enbrel admitted with pain and drainage from the left 1st toe. HPI. Six days ago the patient was seen by his executive admin - he was indicatin he has thickening of the skin on the left 1st toe. He received 2 steroid injections and scraping of the skin. Since then he developed erythema , ulcer with oozing and progressive severe pain. Since admission he has had only slight improvement. Rheumatoid arthritis. History of joint pain since 1993. In 1999 he was diagnosed with rheumatoid arthritis and started on Methotrexate ([id number]). Treated with Humira from 2000 to 2003 and with Enbrel since 2004. Treated with Prednisone or Methylprednisolone since 2000 ans in 2017 he was started on Leflunomide 10 mg/d. At the present time he reports good and bad days with migrating joint pain involving medium size joints. Laboratory work-up - on admission CBC with WBC of 12.9, Hgb 14, HCT 42.3 and platelets 275. On 07/11/19 WBC: 12.2. ESR on 07/11: 51. CXR no acute disease , Duplex US no DVT. MRI left foot () no osteomyelitis. Since admission fever only on 07/09/19, T Max 101.1. - History Source History Provided By: Patient, Medical Record - Past Medical History Musculoskeletal: Yes: Other (Rheumatoid arthritis) Rheumatology: Yes: Rheumatoid Arthritis Endocrine: Yes: Diabetes Insipidus - Alcohol/Substance Use Hx Alcohol Use: No - Smoking History Smoking history: Never smoked Have you smoked in the past 12 months: No - Social History History of Recent Travel: No Home Medications - Allergies Allergies/Adverse Reactions: Allergies Allergy/AdvReac Type Severity Reaction Status Date / Time enalapril Allergy Difficulty Verified 07/08/19 06:17 Breathing - Home Medications Home Medications: Ambulatory Orders Insulin Lispro [Admelog] 10 unit SQ TID 04/27/18 Pravastatin Sodium 10 mg PO HS 04/28/18 Etanercept [Enbrel] 50 mg SQ WEEKLY 08/21/18 Metformin HCl [Glucophage] 100 mg PO AM 08/21/18 Methylprednisolone [Medrol -] 4 mg PO DAILY 08/21/18 Metoprolol Tartrate 25 mg PO DAILY 08/21/18 Apixaban [Eliquis] 5 mg PO BID 01/17/19 Ferrous Sulfate 325 mg PO DAILY 01/17/19 Insulin Glargine,Hum.rec.anlog [Basaglar Sanjivikpen U-100] 10 unit SQ HS 01/17/19 Leflunomide 10 mg PO DAILY 01/17/19 Calcium Carbonate [Oysco-500] 500 mg PO DAILY 07/08/19 Losartan Potassium [Cozaar -] 25 mg PO DAILY 07/08/19 Omeprazole 20 mg PO DAILY 07/08/19 Review of Systems - Review of Systems Constitutional: reports: Malaise Eyes: reports: No Symptoms HENT: reports: No Symptoms Neck: reports: No Symptoms Cardiovascular: reports: No Symptoms Respiratory: reports: No Symptoms Gastrointestinal: reports: No Symptoms Genitourinary: reports: No Symptoms Musculoskeletal: reports: Other (See HPI) Physical Exam Vital Signs: Vital Signs Temperature 97.3 F L 07/12/19 18:00 Pulse Rate 73 07/12/19 18:00 Respiratory Rate 18 07/12/19 18:00 Blood Pressure 129/62 07/12/19 18:00 O2 Sat by Pulse Oximetry (%) 97 07/12/19 09:00 Constitutional: Yes: Mild Distress Eyes: Yes: WNL HENT: Yes: WNL Neck: Yes: WNL Cardiovascular: Yes: WNL Respiratory: Yes: WNL Gastrointestinal: Yes: WNL Musculoskeletal: Yes: Other (No active joints and no stigmata of rheumatoid arthritis. Severe tenderness, swelling and erythema over the distal phalanx of the left 1st toe with ulcer in the tip draining small amount of blood.) Labs: CBC, BMP 07/11/19 07:35 07/11/19 07:35 Laboratory Tests 07/09/19 07/10/19 07/11/19 07:05 05:54 18:45 ESR 38 H Calcium 8.3 L Total Bilirubin 1.0 AST 20 ALT 21 Alkaline Phosphatase 49 Total Protein 6.0 L Albumin 3.0 L Urine Color Yellow Urine Appearance Clear Urine pH 7.5 Ur Specific [place] 1.007 L Urine Protein Negative Urine Glucose (UA) 2+ H Urine Ketones Negative Urine Blood Negative Urine Nitrite Negative Urine Bilirubin Negative Urine Urobilinogen 0.2 Ur Leukocyte Esterase Negative 07/11/19 19:30 ESR 51 H Calcium Total Bilirubin AST ALT Alkaline Phosphatase Total Protein Albumin Urine Color Urine Appearance Urine pH Ur Specific [place] Urine Protein Urine Glucose (UA) Urine Ketones Urine Blood Urine Nitrite Urine Bilirubin Urine Urobilinogen Ur Leukocyte Esterase Problem List - Problems (1) Cellulitis of left foot Assessment/Plan: Cellulitis in the left 1st toe in an immunocompromised patient -related to treatment with Enbrel. The pain and swelling in the left 1st toe are not related to inflammatory arthritis (not related to rheumatoid arthritis or gout) . Presently no evidence of osteomyelitis. On Ampicillin Sulbactam. Continue managemen by ID. Code(s): L03.116 - CELLULITIS OF LEFT LOWER LIMB (2) Rheumatoid arthritis Assessment/Plan: Rheumatoid arthritis, on Enbrel and Leflunomide - on remission./ Plan: Hold Enbrel. Code(s): M06.9 - RHEUMATOID ARTHRITIS, UNSPECIFIED
[2019-07-12] MEDS: ATORVASTATIN CA 10 MG TABLET (FP) PO SCH (21:43)
[2019-07-12] MEDS: PATIENT'S OWN MEDICATION (NON-FORMULARY) (Insulin Glargine,Hum.Rec.Anlog [Basaglar Kwikpen SQ SCH (21:43)
[2019-07-13] MEDS: AMPICILLIN NA/SULBACTAM NA 3 GM in SODIUM CHLORIDE 100 ML IVPB SCH ×3 (02:31→17:07)
[2019-07-13] MEDS: ACETAMINOPHEN 325 MG TABLET (FP) PO PRN (03:10)
[2019-07-13] MEDS: INSULIN SLIDING SCALE (NOVOLOG) 1 VIAL SQ SCH ×3 (06:14→16:16)
[2019-07-13 07:55] LABS: BASO % 1.2 % (0-2.0); HEMATOCRIT 35.9 % (35.4-49); HEMOGLOBIN 12.1 GM/dL (11.7-16.9); LYMPH % 22.5 % (8-40); MCH 29.6 pg (25.7-33.7); MCHC 33.8 g/dl (32.0-35.9); MEAN CELL VOLUME 87.5 fl (80-96); MEAN PLT VOLUME 8.5 fl (7.5-11.1); MONO % 11.8 % (3.8-10.2); NEUT % 59.5 % (42.8-82.8); PLATELET COUNT 293 K/MM3 (134-434); RBC 4.11 M/mm3 (4.00-5.60); WHITE BLOOD COUNT 11.1 K/mm3 (4.0-10.0)
[2019-07-13 08:23] LABS: CALCIUM 8.2 mg/dL (8.5-10.1); POTASSIUM 3.9 mmol/L (3.5-5.1)
[2019-07-13] MEDS ORDERED: PT OWN MED DRAWER 7, Y5N ONE ×3 (08:55→17:02)
[2019-07-13] MEDS: METOPROLOL TARTRATE 25 MG TABLET (FP) PO SCH (09:18)
[2019-07-13] MEDS: LOSARTAN POTASSIUM 25 MG TABLET PO SCH (09:18)
[2019-07-13] MEDS: DOCUSATE SODIUM 100 MG CAPSULE (FP) PO SCH (09:18)
[2019-07-13] MEDS: PANTOPRAZOLE 20 MG TABLET (FP) PO SCH (09:18)
[2019-07-13] MEDS: APIXABAN 5 MG TABLET PO SCH ×2 (09:18→21:41)
[2019-07-13] MEDS: SENNOSIDES 8.6MG TABLET (FP) PO SCH ×2 (09:18→21:41)
[2019-07-13] MEDS: traMADol HCL 50 MG TABLET PO PRN ×2 (09:19→21:41)
[2019-07-13] MEDS: LEFLUNOMIDE 10 MG TABLET PO SCH (10:03)
[2019-07-13] MEDS: methylPREDNISolone 4 MG TABLET PO SCH (10:03)
--- NOTE | 2019-07-13 12:10 | PN ---
Progress Note (short form) - Note Progress Note: Hospitalist Medicine Still w/ pain in L foot, however improved. Seen by rheum; enbrel held. To restart per outside rheum, once infection clears. Follows with Dr. Goode at [facility]. Vitals 07/13/19 10:00 Temperature 98.5 F Pulse Rate 68 Respiratory 18 Rate Blood Pressure 102/62 Physical Exam general: resting in bed, in NAD HEENT: NCAT, PERRLA. +poor dentition neck: supple cardio: S1, S2 RRR. no r/m/g pulm: few crackles B/l. no accessory m usage abdomen: obese, nontender, nondistended LE: +L hallux gangrene surrounding nailbed , TTP. no fluctuance. no drainage. no erythema Laboratory Tests 07/12/19 07/13/19 07/13/19 15:50 06:50 06:50 WBC 11.1 H Hgb 12.1 Hct 35.9 Plt Count 293 Sodium 140 Potassium 3.9 Chloride 108 H BUN 9.0 Creatinine 1.0 Random Glucose 116 H C-Reactive Protein 6.3 H Rheumatoid Arth Biomark 07/13/19 06:50 C-Reactive Protein Rheumatoid Arth Biomark Pending Microbiology 07/09/19 01:30 Wound Gram Stain - Final 07/09/19 01:30 Wound Wound Culture - Final Staphylococcus Aureus 07/09/19 19:10 Blood - Peripheral Venous Blood Culture - Preliminary NO GROWTH OBTAINED AFTER 72 HOURS, INCUBATION TO CONTINUE FOR 2 DAYS. 07/09/19 19:05 Blood - Peripheral Venous Blood Culture - Preliminary NO GROWTH OBTAINED AFTER 72 HOURS, INCUBATION TO CONTINUE FOR 2 DAYS. Imaging 07/08/19: L Foot XR: heavy vascular calcifications, calcaneal spurring, bunion formation by first MTP joint and other arthritic changs in toes. swelling, foreign body or soft tissue is not seen. destructive poess suggestive of osteo is not usually delineated 07/09/19: CXR: (-) 07/10/19: art doppler: noncontrast calculable ABIs d/t noncompressible vessels d /t medial calcinosis. hemodynamically significant bilateral infrapopliteal dz. 07/11/19: MRI L foot: no evidence of osteomyelitis. severe degenerative changes involving the first MTP joint. no evidence of fx or malalignment. Assessment/Plan 64M with history of RA, DM2, HTN, HLD, and recurrent PE, presents to the hospital with left foot cellulitis after podiatry debrided left great toe. #Sepsis 2/2 cellulitis of L great toe -c/w unasyn (07/08); covered by c+s. to change to oral abx tomorrow -f/u cx. wound (+) MSSA -without evidence of osteo -local wound care, betadine -f/u YAYA/PVR testing ; w/ hemodynam sig dz. vascular consult -tylenol PRN, tramadol PRN (7-10 scale) for pain control. -f/u repeat ESR, CRP -podiatry: Dr. Lemus -ID: Dr. Spangler -vascular: Dr. Pearl -PT #hx 1st MTP destructive changes -Rheum consulted by team: Dr. Marino -less likely changes 2/2 RA or degenerative arthritis #Constipation -on senna, colace #DM2 -c/w ISS, BGM ACHS. -glargine 10u SQ HS -dietary consulted, added prosource. DM education given -needs better BGM control < 180, to aid wound healing. #Recurrent PE -c/w eliquis #RA -currently w/o active synovitis. -c/w medrol, leflunomide -f/u RF -enbrel held, to be restarted once infection clears protonix for GI PPX. -Rheum consult: Dr. Marino -follows with Dr. Goode, [facility] #HTN- controlled -c/w losartan, metoprolol #HLD -c/w statin #F/E/N off IVF continue to follow lytes na controlled/diabetic diet #PPX DVT: on eliquis GI: on protonix #Dispo monitoring on med-surg on IV abx <America Song - Last Filed: 07/13/19 16:35> - Note Progress Note: Seen and examined; please see resident note for further historical information. I personally verified all cyr historical information and exam findings. Personally interpreted all imaging and diagnostics and reviewed appropriate consults. I reviewed all labs and vital signs as per resident note and EMR as documented. I agree with the above assessment and plan unless supplemented by myself in the following. Per rheumatology, immunocompromised features related to treatment of Enbrel. Not related to inflammatory arthritis or RA/gout. No evidence of osteomyelitis. Planned to hold the Enbrel. Patient follows up with outpatient printing machinist at [facility], can continue to keep these appointments. 10 item review of systems completed and is negative aside from HPI. Awake alert and oriented, no acute distress, resting in bed Normal heart rate, positive S1-S2 Lungs clear to auscultation bilaterally, with symmetrical chest wall expansion Nontender nondistended Patient had a left foot x-ray on 07/08 that was negative but did endorse bunion formation by the first metatarsal phalangeal joint and other arthritic changes in the toes, no foreign bodies were seen. Chest x-ray without acute disease. Arterial Doppler with hemodynamically significant bilateral infrapopliteal disease, to be followed up with Dr. Pearl. States can be done as outpatient. MRI of the left foot reveals no evidence of osteomyelitis with severe degenerative changes involving the first MTP joint and the area consistent with a bunion formation. There is no evidence of fracture or malalignment noted per the radiology read. Assessment and plan: Patient with a complicated rheumatologic history involving rheumatoid arthritis , no active synovitis per the patient, presents to the emergency room with a complaint of potential osteomyelitis with recent podiatry nail clipping causing damage to the area around his digit. MRI is pending he is on broad-spectrum antibiotics and we are working to control his sugars, ruling out any peripheral arterial disease and will involve vascular surgery on a as needed basis. We will continue with wound care, diet consult, monitoring him on the floor. Problems include: Diabetic foot wound, rule out osteomyelitis Uncontrolled diabetes mellitus 2 Recurrent PE, currently stable, on Eliquis Rheumatoid arthritis, no current synovitis, continue with Medrol, leflunomide, Enbrel, Protonix for GI prophylaxis Hypertension, controlled, continue losartan and metoprolol Hyperlipidemia, controlled, continue with home statin follow-up outpatient fasting lipid profile. Full Code <Marcial Vargas - Last Filed: 08/06/19 16:01>
--- NOTE | 2019-07-13 15:22 | PN ---
Progress Note, Physician History of Present Illness: stable no new issues - Current Medication List Current Medications: Active Medications Acetaminophen (Tylenol -) 650 mg PO Q6H PRN PRN Reason: PAIN LEVEL 4 - 6 Last Admin: 07/13/19 03:10 Dose: 650 mg Apixaban (Eliquis -) 5 mg PO BID [facility] Last Admin: 07/13/19 09:18 Dose: 5 mg Atorvastatin Calcium (Lipitor -) 10 mg PO HS [facility] Last Admin: 07/12/19 21:43 Dose: 10 mg Docusate Sodium (Colace -) 100 mg PO DAILY [facility] Last Admin: 07/13/19 09:18 Dose: 100 mg Ampicillin Sodium/Sulbactam (Sodium 3 gm/ Sodium Chloride) 100 mls @ 200 mls/ hr IVPB Q8H-IV [facility] Last Admin: 07/13/19 09:18 Dose: 200 mls/hr Insulin Aspart (Novolog Vial Sliding Scale -) 1 vial SQ TIDAC [facility]; Protocol Last Admin: 07/13/19 11:22 Dose: Not Given Leflunomide (Arava -) 10 mg PO DAILY [facility] Last Admin: 07/13/19 10:03 Dose: 10 mg Losartan Potassium (Cozaar -) 25 mg PO DAILY [facility] Last Admin: 07/13/19 09:18 Dose: 25 mg Methylprednisolone (Medrol -) 4 mg PO DAILY [facility] Last Admin: 07/13/19 10:03 Dose: 4 mg Metoprolol Tartrate (Lopressor -) 25 mg PO DAILY [facility] Last Admin: 07/13/19 09:18 Dose: 25 mg Non-Formulary Medication (Insulin Glargine,Hum.Rec.Anlog [Prafulaglar Kwikpen U-100 ]) 10 unit SQ HS [facility] Last Admin: 07/12/19 21:43 Dose: 10 unit Pantoprazole Sodium (Protonix -) 20 mg PO DAILY [facility] Last Admin: 07/13/19 09:18 Dose: 20 mg Senna (Senna -) 1 tab PO BID [facility] Last Admin: 07/13/19 09:18 Dose: 1 tab Tramadol HCl (Ultram -) 50 mg PO Q8H PRN PRN Reason: PAIN LEVEL 7 - 10 Last Admin: 07/13/19 09:19 Dose: 50 mg - Objective Vital Signs: Vital Signs Temperature 97.7 F 07/13/19 14:20 Pulse Rate 69 07/13/19 14:20 Respiratory Rate 18 07/13/19 14:20 Blood Pressure 138/59 L 07/13/19 14:20 O2 Sat by Pulse Oximetry (%) 98 07/13/19 09:00 Constitutional: Yes: No Distress, Calm Cardiovascular: Yes: S1, S2 Respiratory: Yes: Regular, CTA Bilaterally Gastrointestinal: Yes: Normal Bowel Sounds, Soft Musculoskeletal: Yes: WNL Extremities: Yes: WNL Wound/Incision: Yes: Dressing Dry and Intact Neurological: Yes: Alert, Oriented Psychiatric: Yes: Alert, Oriented Labs: CBC, BMP 07/13/19 06:50 07/13/19 06:50 Assessment/Plan Problem List - Problems (1) Cellulitis of left foot Problems reviewed: Yes Code(s): L03.116 - CELLULITIS OF LEFT LOWER LIMB (2) Type 2 diabetes mellitus Problems reviewed: Yes Code(s): E11.9 - TYPE 2 DIABETES MELLITUS WITHOUT COMPLICATIONS (3) Recurrent pulmonary embolism Problems reviewed: Yes Code(s): I26.99 - OTHER PULMONARY EMBOLISM WITHOUT ACUTE COR PULMONALE (4) Rheumatoid arthritis Problems reviewed: Yes Code(s): M06.9 - RHEUMATOID ARTHRITIS, UNSPECIFIED (5) Hypertension Problems reviewed: Yes Code(s): I10 - ESSENTIAL (PRIMARY) HYPERTENSION (6) Hypercholesterolemia Problems reviewed: Yes Code(s): E78.00 - PURE HYPERCHOLESTEROLEMIA, UNSPECIFIED Assessment/Plan continue abx will change to oral tomorrow rest as per the team wound care
[2019-07-13] MEDS: ATORVASTATIN CA 10 MG TABLET (FP) PO SCH (21:41)
[2019-07-13] MEDS: PATIENT'S OWN MEDICATION (NON-FORMULARY) (Insulin Glargine,Hum.Rec.Anlog [Basaglar Kwikpen SQ SCH (21:43)
[2019-07-14] MEDS: AMPICILLIN NA/SULBACTAM NA 3 GM in SODIUM CHLORIDE 100 ML IVPB SCH (02:07)
[2019-07-14] MEDS: traMADol HCL 50 MG TABLET PO PRN (05:29)
[2019-07-14] MEDS: INSULIN SLIDING SCALE (NOVOLOG) 1 VIAL SQ SCH ×2 (06:17→12:28)
[2019-07-14 08:27] LABS: BASO % 1.2 % (0-2.0); EOS % 4.6 % (0-4.5); HEMATOCRIT 37.8 % (35.4-49); HEMOGLOBIN 12.6 GM/dL (11.7-16.9); MCH 29.1 pg (25.7-33.7); MCHC 33.2 g/dl (32.0-35.9); MEAN CELL VOLUME 87.8 fl (80-96); MEAN PLT VOLUME 8.6 fl (7.5-11.1); MONO % 13.7 % (3.8-10.2); NEUT % 58.5 % (42.8-82.8); PLATELET COUNT 322 K/MM3 (134-434); RBC 4.31 M/mm3 (4.00-5.60); RDW 13.1 % (11.9-15.9); WHITE BLOOD COUNT 13.6 K/mm3 (4.0-10.0)
[2019-07-14 08:32] LABS: BLOOD UREA NITROGEN 9.5 mg/dL (7-18); CALCIUM 8.7 mg/dL (8.5-10.1); MAGNESIUM 2.4 mg/dL (1.8-2.4); POTASSIUM 3.8 mmol/L (3.5-5.1)
--- NOTE | 2019-07-14 09:15 | PN ---
Progress Note, Physician History of Present Illness: stable no new issues - Current Medication List Current Medications: Active Medications Acetaminophen (Tylenol -) 650 mg PO Q6H PRN PRN Reason: PAIN LEVEL 4 - 6 Last Admin: 07/13/19 03:10 Dose: 650 mg Apixaban (Eliquis -) 5 mg PO BID [facility] Last Admin: 07/13/19 21:41 Dose: 5 mg Atorvastatin Calcium (Lipitor -) 10 mg PO HS [facility] Last Admin: 07/13/19 21:41 Dose: 10 mg Docusate Sodium (Colace -) 100 mg PO DAILY [facility] Last Admin: 07/13/19 09:18 Dose: 100 mg Insulin Aspart (Novolog Vial Sliding Scale -) 1 vial SQ TIDAC [facility]; Protocol Last Admin: 07/14/19 06:17 Dose: Not Given Leflunomide (Arava -) 10 mg PO DAILY [facility] Last Admin: 07/13/19 10:03 Dose: 10 mg Losartan Potassium (Cozaar -) 25 mg PO DAILY [facility] Last Admin: 07/13/19 09:18 Dose: 25 mg Methylprednisolone (Medrol -) 4 mg PO DAILY [facility] Last Admin: 07/13/19 10:03 Dose: 4 mg Metoprolol Tartrate (Lopressor -) 25 mg PO DAILY [facility] Last Admin: 07/13/19 09:18 Dose: 25 mg Non-Formulary Medication (Insulin Glargine,Hum.Rec.Anlog [Prafulagljosiah Kwjnoipen U-100 ]) 10 unit SQ HS [facility] Last Admin: 07/13/19 21:43 Dose: 10 unit Pantoprazole Sodium (Protonix -) 20 mg PO DAILY [facility] Last Admin: 07/13/19 09:18 Dose: 20 mg Senna (Senna -) 1 tab PO BID [facility] Last Admin: 07/13/19 21:41 Dose: 1 tab Tramadol HCl (Ultram -) 50 mg PO Q8H PRN PRN Reason: PAIN LEVEL 7 - 10 Last Admin: 07/14/19 05:29 Dose: 50 mg - Objective Vital Signs: Vital Signs Temperature 98.4 F 07/14/19 07:12 Pulse Rate 79 07/14/19 07:12 Respiratory Rate 18 07/14/19 07:12 Blood Pressure 140/79 07/14/19 07:12 O2 Sat by Pulse Oximetry (%) 98 07/13/19 21:00 Constitutional: Yes: No Distress, Calm Cardiovascular: Yes: S1, S2 Respiratory: Yes: Regular, CTA Bilaterally Gastrointestinal: Yes: Normal Bowel Sounds, Soft Musculoskeletal: Yes: WNL Extremities: Yes: WNL Neurological: Yes: Alert, Oriented Psychiatric: Yes: Alert, Oriented Labs: CBC, BMP 07/14/19 07:07 07/14/19 07:07 Assessment/Plan Problem List - Problems (1) Cellulitis of left foot Problems reviewed: Yes Code(s): L03.116 - CELLULITIS OF LEFT LOWER LIMB (2) Type 2 diabetes mellitus Problems reviewed: Yes Code(s): E11.9 - TYPE 2 DIABETES MELLITUS WITHOUT COMPLICATIONS (3) Recurrent pulmonary embolism Problems reviewed: Yes Code(s): I26.99 - OTHER PULMONARY EMBOLISM WITHOUT ACUTE COR PULMONALE (4) Rheumatoid arthritis Problems reviewed: Yes Code(s): M06.9 - RHEUMATOID ARTHRITIS, UNSPECIFIED (5) Hypertension Problems reviewed: Yes Code(s): I10 - ESSENTIAL (PRIMARY) HYPERTENSION (6) Hypercholesterolemia Problems reviewed: Yes Code(s): E78.00 - PURE HYPERCHOLESTEROLEMIA, UNSPECIFIED Assessment/Plan changed to augmentin rest as per the team
[2019-07-14] MEDS ORDERED: AMOX TR/POT CLAV 875MG/125MG TABLETS (FP) PO SCH (10:00)
[2019-07-14] MEDS: DOCUSATE SODIUM 100 MG CAPSULE (FP) PO SCH (10:00)
[2019-07-14] MEDS: LOSARTAN POTASSIUM 25 MG TABLET PO SCH (10:00)
[2019-07-14] MEDS: APIXABAN 5 MG TABLET PO SCH (10:00)
[2019-07-14] MEDS: PANTOPRAZOLE 20 MG TABLET (FP) PO SCH (10:00)
[2019-07-14] MEDS: METOPROLOL TARTRATE 25 MG TABLET (FP) PO SCH (10:00)
[2019-07-14] MEDS: methylPREDNISolone 4 MG TABLET PO SCH (10:00)
[2019-07-14] MEDS: LEFLUNOMIDE 10 MG TABLET PO SCH (10:00)
[2019-07-14] MEDS: SENNOSIDES 8.6MG TABLET (FP) PO SCH (10:02)
[2019-07-14 11:48] VITALS: BP 112/64; PULSE 84; TEMP 98.3
[2019-07-14] MEDS ORDERED: PT OWN MED DRAWER 7, Y5N ONE (12:26)
--- NOTE | 2019-07-14 20:16 | DS ---
Physical Exam: SUBJECTIVE: Patient seen and examined at bedside. Improved pain in L foot. Has been ambulating freely. Ready to go home OBJECTIVE: Vital Signs Period Temp Pulse Resp BP Sys/Dawson Pulse Ox Last 24 Hr 97.9 F-98.4 F 77-84 18-18 112-140/64-79 98-98 Physical Exam general: resting in bed, in NAD HEENT: NCAT, PERRLA. +poor dentition neck: supple cardio: S1, S2 RRR. no r/m/g pulm: few crackles B/l. no accessory m usage abdomen: obese, nontender, nondistended LE: +L hallux gangrene surrounding nailbed , TTP. no fluctuance. no drainage. no erythema. LABS Laboratory Results - last 24 hr 07/14/19 07/14/19 07/14/19 07:07 07:07 07:07 WBC 13.6 H RBC 4.31 Hgb 12.6 Hct 37.8 MCV 87.8 MCH 29.1 MCHC 33.2 RDW 13.1 Plt Count 322 MPV 8.6 Absolute Neuts (auto) 8.0 Neutrophils % 58.5 Lymphocytes % 22.0 Monocytes % 13.7 H Eosinophils % 4.6 H Basophils % 1.2 Nucleated RBC % 0 ESR 46 H Sodium 141 Potassium 3.8 Chloride 108 H Carbon Dioxide 26 Anion Gap 6 L BUN 9.5 Creatinine 1.0 Est GFR (CKD-EPI)AfAm 93.08 Est GFR (CKD-EPI)NonAf 80.31 POC Glucometer Random Glucose 104 Calcium 8.7 Phosphorus 3.0 Magnesium 2.4 Rheumatoid Arth Biomark CBC trend 07/08/19 07/09/19 07/10/19 07:39 07:05 05:54 WBC 12.9 H 10.1 H 11.2 H Hgb 14.0 13.9 12.3 Hct 42.3 D 42.3 36.2 Plt Count 275 D 227 218 ESR 07/10/19 07/11/19 07/11/19 05:54 07:35 19:30 WBC 12.2 H Hgb 13.2 Hct 39.9 Plt Count 294 D ESR 38 H 51 H 07/13/19 07/14/19 07/14/19 06:50 07:07 07:07 WBC 11.1 H 13.6 H Hgb 12.1 12.6 Hct 35.9 37.8 Plt Count 293 322 ESR 46 H BMP trend 07/08/19 07/08/19 07/09/19 07:39 07:39 07:05 Sodium 138 137 Potassium 3.7 3.6 Chloride 108 H 103 Carbon Dioxide 22 27 Anion Gap BUN 14.6 9.2 Creatinine 1.2 1.1 Random Glucose 138 H C-Reactive Protein 2.8 H 2.7 H 07/10/19 07/11/19 07/13/19 05:46 07:35 06:50 Sodium 141 141 140 Potassium 3.8 3.6 3.9 Chloride 110 H 107 108 H Carbon Dioxide 25 24 26 Anion Gap 6 L BUN 6.9 L 8.7 9.0 Creatinine 1.0 1.1 1.0 Random Glucose C-Reactive Protein 5.4 H 07/14/19 07:07 Sodium 141 Potassium 3.8 Chloride 108 H Carbon Dioxide 26 Anion Gap 6 L BUN 9.5 Creatinine 1.0 Random Glucose C-Reactive Protein UA 07/11/19 18:45 Urine Color Yellow Urine Appearance Clear Urine pH 7.5 Ur Specific [place] 1.007 L Urine Protein Negative Urine Glucose (UA) 2+ H Urine Ketones Negative Urine Blood Negative Urine Nitrite Negative Urine Bilirubin Negative Rheumatoid Arthritis 07/13/19 06:50 Rheumatoid Arth Biomark 20.7 H Microbiology 07/09/19 01:30 Wound Gram Stain - Final 07/09/19 01:30 Wound Wound Culture - Final Staphylococcus Aureus 07/09/19 19:10 Blood - Peripheral Venous Blood Culture - Preliminary NO GROWTH OBTAINED AFTER 72 HOURS, INCUBATION TO CONTINUE FOR 2 DAYS. 07/09/19 19:05 Blood - Peripheral Venous Blood Culture - Preliminary NO GROWTH OBTAINED AFTER 72 HOURS, INCUBATION TO CONTINUE FOR 2 DAYS. Imaging 07/08/19: L Foot XR: heavy vascular calcifications, calcaneal spurring, bunion formation by first MTP joint and other arthritic changs in toes. swelling, foreign body or soft tissue is not seen. destructive poess suggestive of osteo is not usually delineated 07/09/19: CXR: (-) 07/10/19: art doppler: noncontrast calculable ABIs d/t noncompressible vessels d /t medial calcinosis. hemodynamically significant bilateral infrapopliteal dz. 07/11/19: MRI L foot: no evidence of osteomyelitis. severe degenerative changes involving the first MTP joint. no evidence of fx or malalignment. HOSPITAL COURSE: Date of Admission:07/08/19 Date of Discharge: 07/14/19 64M with history of RA, DM2, HTN, HLD, and recurrent PE, presents to the hospital with left foot cellulitis after podiatry debrided left great toe. #Sepsis 2/2 cellulitis of L great toe -was on IV unasyn for 1 week duration; covered by c+s. to go home on 1 week course of augmentin -wound cx (+) MSSA -without evidence of osteo -local wound care, betadine on d/c -YAYA/PVR testing ; w/ hemodynam sig dz. vascular consult -tylenol PRN, tramadol PRN (7-10 scale) for pain control. -podiatry: Dr. Lemus -ID: Dr. Spangler -vascular: Dr. Pearl -PT #Constipation -on senna, colace #DM2 -c/w ISS, BGM ACHS. -glargine 10u SQ HS -dietary consulted, added prosource. DM education given -needs better BGM control < 180, to aid wound healing. #Recurrent PE -c/w eliquis #RA -currently w/o active synovitis. -c/w medrol, leflunomide -f/u RF -enbrel held, to be restarted once infection clears protonix for GI PPX. -Rheum consult: Dr. Marino -follows with Dr. Goode, Roberto Carlos #HTN- controlled -c/w losartan, metoprolol #HLD -c/w statin Minutes to complete discharge: 55 <America Song - Last Filed: 07/14/19 20:16> Physical Exam: Seen and examined; please see resident note for further historical information. I personally verified all cyr historical information and exam findings. Personally interpreted all imaging and diagnostics and reviewed appropriate consults. I reviewed all labs and vital signs as per resident note and EMR as documented. I agree with the above assessment and plan unless supplemented by myself in the following. 10 item review of systems completed and is negative aside from history of present illness VS, labs, imaging reviewed NAD, AAO, resting comfortably in bed. RRR s1/2 no mgr Normal muscle tone, moves all 5 extremities with normal apparent strength Toe exam is improved without any focal issues. No crepitus, signs of osteomyelitis, etc. etc. Imaging discussed in prior progress notes. Hospital course: Patient presented with suspected osteomyelitis of her toe after podiatry procedure. MRI confirmed no presence of list. Struct of changes found to be secondary to likely leflunomide, has underlying bunion formation with associated inflammatory changes on imaging. Discontinued the indicated agent as per rheumatology recommendation and will discharge the patient home for close outpatient follow-up. Antibiotics per infectious disease and microbiology noted. Stable, no signs of worsening infection. Has benefited maximally from hospitalization Agree with discharge planning as per the resident note Full code <Marcial Vargas - Last Filed: 08/06/19 16:03> Discharge Summary Problems reviewed: Yes Reason For Visit: PAIN OF TOE,INFECTION OF TOE - Home Medications Comprehensive Discharge Medication List: Ambulatory Orders Insulin Lispro [Admelog] 10 unit SQ TID 04/27/18 Pravastatin Sodium 10 mg PO HS 04/28/18 Metformin HCl [Glucophage] 100 mg PO AM 08/21/18 Methylprednisolone [Medrol -] 4 mg PO DAILY 08/21/18 Metoprolol Tartrate 25 mg PO DAILY 08/21/18 Apixaban [Eliquis] 5 mg PO BID 01/17/19 Ferrous Sulfate 325 mg PO DAILY 01/17/19 Insulin Glargine,Hum.rec.anlog [Basaglar Kwikpen U-100] 10 unit SQ HS 01/17/19 Leflunomide 10 mg PO DAILY 01/17/19 Calcium Carbonate [Oysco-500] 500 mg PO DAILY 07/08/19 Losartan Potassium [Cozaar -] 25 mg PO DAILY 07/08/19 Omeprazole 20 mg PO DAILY 07/08/19 Acetaminophen [Tylenol .Regular Strength -] 650 mg PO Q6H PRN #30 tablet Amox-Tr/K Cl [Augmentin 875-125mg Tablet -] 1 tab PO BID@0800,1730 #12 tablet Povidone-Iodine [Betadine] 473 ml TP DAILY #1 bottle 07/14/19 <America Song - Last Filed: 07/14/19 20:16> - Home Medications Comprehensive Discharge Medication List: Ambulatory Orders Insulin Lispro [Admelog] 10 unit SQ TID 04/27/18 Pravastatin Sodium 10 mg PO HS 04/28/18 Metformin HCl [Glucophage] 100 mg PO AM 08/21/18 Methylprednisolone [Medrol -] 4 mg PO DAILY 08/21/18 Metoprolol Tartrate 25 mg PO DAILY 08/21/18 Apixaban [Eliquis] 5 mg PO BID 01/17/19 Ferrous Sulfate 325 mg PO DAILY 01/17/19 Insulin Glargine,Hum.rec.anlog [Basaglar Kwikpen U-100] 10 unit SQ HS 01/17/19 Leflunomide 10 mg PO DAILY 01/17/19 Calcium Carbonate [Oysco-500] 500 mg PO DAILY 07/08/19 Losartan Potassium [Cozaar -] 25 mg PO DAILY 07/08/19 Omeprazole 20 mg PO DAILY 07/08/19 Acetaminophen [Tylenol .Regular Strength -] 650 mg PO Q6H PRN #30 tablet Amox-Tr/K Cl [Augmentin 875-125mg Tablet -] 1 tab PO BID@0800,1730 #12 tablet Povidone-Iodine [Betadine] 473 ml TP DAILY #1 bottle 07/14/19 <Marcial Vargas - Last Filed: 08/06/19 16:03> Condition: Improved - Instructions Diet, Activity, Other Instructions: You were in the hospital because you developed sepsis from cellulitis in your left great toe (big toe), after a nail debridement. You were monitored in the hospital, given IV antibiotics (unasyn) for one week, and seen by the primary team, podiatry, and infectious disease teams. During your stay in the hospital, you were also seen by a contact lens fitter, who managed your medications. You improved and are being sent home. Medications 1. For your cellulitis of the toe: please continue to take the antibiotic, augmentin 875mg (1 pill) twice a day for six more days (starting tomorrow 07/15) , to complete an overall 2 week course of antibiotics. 2. Continue local wound care to the toe by applying betadine daily, and change the dressing/gauze as well. 3. Do not take enbrel right now. It was held in the hospital when you were seen by the contact lens fitter, since you have an ongoing infection. Your outside contact lens fitter will decide when this medication will be restarted. 4. You may take Tylenol 650mg (1 pill) every 6 hours only as needed for pain 5. You may continue your other home medications. Follow-up appointments Please follow up with the following physicians upon your discharge from the hospital: -Your primary care physician, Dr. Rod Boss - within 1 week to discuss your visit -Your contact lens fitter, Dr. Yuan Goode - within 1 week to discuss your rheumatoid arthritis medications. Currently your Enbrel has been held due to the sepsis of the toe (infection) which you experienced. He will decide when it will be restarted. -A vascular surgeon, Dr. Torres Pearl - who will see you in the wound care center - 1 week -The podiatry who saw you in the hospital, Dr. Lemus - 1 week Referrals: Dr. Yuan Goode [Other] - 1 Week Rod Boss [Primary Care Provider] - 1 Week Santiago Lemus MD [Staff Physician] - 1 Week Torres Pearl DO [Staff Physician] - 1 Week Disposition: HOME IV THERAPY This patient is new to me today: No Emergency Visit: No Critical Care patient: No - Discharge Referral Referred to [facility] No <America Song - Last Filed: 07/14/19 20:16> ATTENDING PHYSICIAN STATEMENT I saw and evaluated the patient. I reviewed the resident's note and discussed the case with the resident. I agree with the resident's findings and plan as documented. SUBJECTIVE: OBJECTIVE: ASSESSMENT AND PLAN: <Marcial Vargas - Last Filed: 08/06/19 16:03>
== END 2019-07-14 13:34 | disposition home or self-care (01) | DRG 721 ==
LOC: JER 05:12 → JERBED 09:39 → J7W 12:28
PROVIDERS: ADMIT Internal Medicine; ATTEND Internal Medicine
DX: T81.40XA Infection following a procedure, unspecified, initial encounter (principal); A41.01 Sepsis due to Methicillin susceptible Staphylococcus aureus; I10 Essential (primary) hypertension; J45.909 Unspecified asthma, uncomplicated; M06.9 Rheumatoid arthritis, unspecified; K21.9 Gastro-esophageal reflux disease without esophagitis; D64.9 Anemia, unspecified; I27.82 Chronic pulmonary embolism; E23.2 Diabetes insipidus; L03.116 Cellulitis of left lower limb; E78.00 Pure hypercholesterolemia, unspecified; E87.5 Hyperkalemia; K59.09 Other constipation; E78.5 Hyperlipidemia, unspecified; R50.9 Fever, unspecified; D72.829 Elevated white blood cell count, unspecified; M19.90 Unspecified osteoarthritis, unspecified site; E11.52 Type 2 diabetes mellitus with diabetic peripheral angiopathy with gangrene; I96 Gangrene, not elsewhere classified; Y83.9 Surgical procedure, unspecified as the cause of abnormal reaction of the patient, or of later complication, without mention of misadventure at the time of the procedure
CPT/HCPCS: 36415; 71045-TC-FY; 73630-TC-LT; 73718-TC-LT; 80048; 80053; 81003; 82962; 83735; 84100; 85025; 85651; 86140; 86431; 87040; 87070; 87186; 87205; 93923; 93925-TC; 97116-GP; 97161-GP; 99284-25; J7030

== ENCOUNTER 2019-09-01 08:27 | Day surgery (SDC) | payer OTHER ==
[2019-08-31 12:40] VITALS: BMI 23.1
[2019-09-01] MEDS ORDERED: HEPARIN NA (PORCINE) 5,000 UNITS/ML 1ML VIAL ONE (10:37)
[2019-09-01] MEDS ORDERED: LIDOCAINE HCL 1%, 10 MG/ML (20ML VIAL) ONE (10:37)
--- NOTE | 2019-09-01 10:51 | HP ---
Admitting History and Physical - Admission Chief Complaint: left great toe ulcer Limitations to Obtaining History: No Limitations - Past Medical History Heme/Onc: Yes: Other (Recurrent pulmonary embolism) Musculoskeletal: Yes: Other (Rheumatoid arthritis) Rheumatology: Yes: Rheumatoid Arthritis Endocrine: Yes: Diabetes Insipidus - Smoking History Smoking history: Never smoked Have you smoked in the past 12 months: No - Alcohol/Substance Use Hx Alcohol Use: No - Social History History of Recent Travel: No Home Medications - Allergies Allergies/Adverse Reactions: Allergies Allergy/AdvReac Type Severity Reaction Status Date / Time enalapril Allergy Difficulty Verified 07/08/19 06:17 Breathing - Home Medications Home Medications: Ambulatory Orders Insulin Lispro [Admelog] 10 unit SQ TID 04/27/18 Pravastatin Sodium 10 mg PO HS 04/28/18 Metformin HCl [Glucophage] 2 tab PO AM 08/21/18 Methylprednisolone [Medrol -] 4 mg PO DAILY 08/21/18 Metoprolol Tartrate 25 mg PO DAILY 08/21/18 Apixaban [Eliquis] 5 mg PO BID 01/17/19 Ferrous Sulfate 325 mg PO DAILY 01/17/19 Insulin Glargine,Hum.rec.anlog [Basaglar Kwikpen U-100] 10 unit SQ HS 01/17/19 Leflunomide 10 mg PO DAILY 01/17/19 Calcium Carbonate [Oysco-500] 500 mg PO DAILY 07/08/19 Losartan Potassium [Cozaar -] 25 mg PO DAILY 07/08/19 Omeprazole 20 mg PO DAILY 07/08/19 Acetaminophen [Tylenol .Regular Strength -] 650 mg PO Q6H PRN #30 tablet Collagenase Clostridium Hist. [Santyl] 1 applic TP DAILY #90 oint...g. 08/07/19 Atorvastatin Ca [Lipitor] 20 mg PO HS 08/31/19 Enoxaparin [Lovenox -] 70 mg SQ ASDIR 08/31/19 Review of Systems - Review of Systems Constitutional: reports: No Symptoms Eyes: reports: No Symptoms HENT: reports: No Symptoms Neck: reports: No Symptoms Cardiovascular: reports: No Symptoms Respiratory: reports: No Symptoms Gastrointestinal: reports: No Symptoms Genitourinary: reports: No Symptoms Musculoskeletal: reports: No Symptoms Integumentary: reports: No Symptoms Neurological: reports: No Symptoms Endocrine: reports: No Symptoms Hematology/Lymphatic: reports: No Symptoms Psychiatric: reports: No Symptoms Physical Examination Vital Signs: Vital Signs Temperature 97.4 F L 09/01/19 08:46 Pulse Rate 75 09/01/19 08:46 Respiratory Rate 20 09/01/19 08:46 Blood Pressure 134/68 09/01/19 08:46 O2 Sat by Pulse Oximetry (%) 96 09/01/19 08:47 Constitutional: Yes: Well Nourished, No Distress, Calm Eyes: Yes: WNL, Conjunctiva Clear, EOM Intact HENT: Yes: WNL, Atraumatic, Normocephalic Neck: Yes: WNL, Supple, Trachea Midline Cardiovascular: Yes: WNL, Regular Rate and Rhythm Respiratory: Yes: WNL, Regular, CTA Bilaterally Gastrointestinal: Yes: WNL, Normal Bowel Sounds Musculoskeletal: Yes: WNL Extremities: Yes: WNL Edema: No Peripheral Pulses WNL: No Integumentary: Yes: WNL Neurological: Yes: WNL, Alert, Oriented ...Motor Strength: WNL Psychiatric: Yes: WNL Problem List - Problems (1) Gangrene of toe of left foot Assessment/Plan: For angiogram today Code(s): I96 - GANGRENE, NOT ELSEWHERE CLASSIFIED
[2019-09-01] MEDS ORDERED: MIDAZOLAM HCL 2 MG/2 ML SINGLE DOSE VIAL ONE ×2 (11:16→11:18)
[2019-09-01] MEDS ORDERED: ceFAZolin SODIUM 1 GM VIAL IVPB ONE (11:30)
[2019-09-01] MEDS ORDERED: LIDOCAINE HCL 1%, 10 MG/ML (20ML VIAL) NR ONE ×2 (11:31)
--- NOTE | 2019-09-01 12:39 | OP ---
Operative Note - Note: Operative Date: 09/01/19 Pre-Operative Diagnosis: left great toe gangrene Operation: Aortogram, LLE angiogram, tibial artery angioplasty Findings: small vessel disease in foot. Scattered stenosis of ant tibial artery. Main runoff is PT Post-Operative Diagnosis: Same as Pre-op Surgeon: Torres Pearl Anesthesia: Fractional Estimated Blood Loss (mls): 50 Operative Report Dictated: Yes
[2019-09-01] MEDS ORDERED: APIXABAN 5 MG TABLET PO SCH (13:15)
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
[2019-09-01 14:17] VITALS: TEMP 98.1
[2019-09-01] MEDS ORDERED: ACETAMINOPHEN 325 MG TABLET (FP) ONE (14:52)
[2019-09-01] MEDS ORDERED: ACETAMINOPHEN 325 MG TABLET (FP) PO ONE (14:58)
[2019-09-01 15:46] VITALS: BP 129/80; PULSE 76
== END 2019-09-01 15:46 | disposition home or self-care (01) ==
LOC: JASU-SURG 08:27
PROVIDERS: ATTEND Surgery Vascular Surgery
PROC: 047Q3ZZ Dilation of Left Anterior Tibial Artery, Percutaneous Approach (ICD-10-PCS; principal; 2019-09-01 10:30)
DX: E11.52 Type 2 diabetes mellitus with diabetic peripheral angiopathy with gangrene (principal); I73.9 Peripheral vascular disease, unspecified
CPT/HCPCS: 37228; C1725; 76000-TC-FY; 82962; 94760; J1644

== ENCOUNTER 2020-01-22 14:20 | Emergency (ER) | payer OTHER ==
--- NOTE | 2020-01-22 14:25 | PDOC ---
Rapid Medical Evaluation Time Seen by Provider: 01/22/20 14:21 Medical Evaluation: Allergies Allergy/AdvReac Type Severity Reaction Status Date / Time enalapril Allergy Difficulty Verified 01/22/20 14:22 Breathing vancomycin AdvReac Mild Itching Verified 01/22/20 14:22 01/22/20 14:23 CC: sx 01/[address] amputated toe osteomylitis and now with pain and tingling, home care nurse concerning for infection Exam: dressing in place, vss plan: labs, wound cx Discharge Disposition - Diagnosis Toe pain - Referrals - Patient Instructions - Post Discharge Activity
[2020-01-22 14:26] VITALS: BMI 23.9
--- NOTE | 2020-01-22 15:10 | PDOC ---
History of Present Illness - General Chief Complaint: Wound Stated Complaint: LT FOOT PAIN Time Seen by Provider: 01/22/20 14:21 - History of Present Illness Initial Comments: 01/22/20 15:47 64-year-old male with a past medical history of diabetes dyslipidemia and vascular insufficiency presents for evaluation of left foot pain after great toe amputation over 10 days ago. He is finished a postoperative course of oral antibiotics and as well as his pain medication. No precipitating traumatic event he has been having daily dressing changes by his visiting nurse. Past History - Medical History Allergies/Adverse Reactions: Allergies Allergy/AdvReac Type Severity Reaction Status Date / Time enalapril Allergy Difficulty Verified 01/22/20 14:22 Breathing vancomycin AdvReac Mild Itching Verified 01/22/20 14:22 Home Medications: Ambulatory Orders Insulin Lispro [Admelog] 20 unit SQ TID 04/27/18 Apixaban [Eliquis] 5 mg PO BID 01/17/19 Leflunomide 10 mg PO DAILY 01/17/19 Calcium Carbonate [Oysco-500] 500 mg PO DAILY 07/08/19 Atorvastatin Ca [Lipitor] 20 mg PO HS 10/09/19 Ferrous Sulfate 1 tab PO DAILY 10/09/19 Insulin Glargine,Hum.rec.anlog [Basaglar Kwikpen U-100] 10 unit SQ HS 10/09/19 Losartan Potassium [Cozaar -] 25 mg PO DAILY 10/09/19 Metformin HCl [Glucophage] 1,000 mg PO AM 10/09/19 Metoprolol Tartrate [Lopressor -] 25 mg PO DAILY 10/09/19 Omeprazole 1 tab PO DAILY 10/09/19 Methylprednisolone [Medrol -] 1 tab PO DAILY 01/08/20 Sulfamethoxazole/Trimethoprim [Bactrim Ds -] 1 tab PO BID 7 Days #14 tablet 01/12/20 Asthma: Yes Cancer: No Cardiac Disorders: Yes (PE 02/2018, dvt) CVA: No COPD: No CHF: No Dementia: No Diabetes: Yes (type 2) GI Disorders: Yes (GERD,HERNIA) HTN: Yes Hypercholesterolemia: Yes Seizures: No - Surgical History Lung Surgery: Yes (STERNOTOMY) - Immunization History Immunization Up to Date: No - Psycho-Social/Smoking History Smoking History: Never smoked Have you smoked in the past 12 months: No - Substance Abuse Hx (Audit-C & DAST Scrn) How often the patient has a drink containing alcohol: Never Score: In Men: 4 or > Positive; In Women: 3 or > Positive: 0 Screen Result (Pos requires Nsg. Audit-10AR): Negative In the last yr the pt used illegal drug/Rx for NonMed reason: No Score: Yes response is considered Positive: 0 Screen Result (Positive result requires Nsg. DAST-10): Negative Review of Systems - Review of Systems Constitutional: No: Chills, Diaphoresis, Fever, Night Sweats *Physical Exam - Vital Signs Last Vital Signs Temp Pulse Resp BP Pulse Ox 98.5 F 93 H 20 103/64 100 01/22/20 14:22 01/22/20 14:22 01/22/20 14:22 01/22/20 14:22 01/22/20 14:22 - Physical Exam 01/22/20 15:48 Left foot normal skin color and temperature left great toe was amputated incision is moist without dehiscence or purulent drainage. Medical Decision Making - Medical Decision Making 01/22/20 15:03 Dr Lemus operating doc on L great toe amputation. 01/22/20 15:31 Dr Lemus advised on x-rays today, I await his call back and guidance for follow up 01/22/20 15:48 Discussed this case with operating s iron worker. Xeroform dressing x-rays show no changes. I have reviewed the x-rays with the operating s iron worker. Patient will be seen tomorrow as an outpatient by his s iron worker. No need for antibiotics no infection today. Discharge - Discharge Information Problems reviewed: Yes Clinical Impression/Diagnosis: Painful amputation stump Clinical Impression/Diagnosis: (Ruled Out): Toe pain Condition: Stable Disposition: HOME - Admission No - Follow up/Referral Referrals: Rod Boss [Primary Care Provider] - Santiago Lemus MD [Staff Physician] - - Patient Discharge Instructions Additional Instructions: Please leave the dressing on until seen by podiatry tomorrow. Please call your operating s iron worker Dr. Lopez her for follow-up he will see you tomorrow in the office. He is expecting your phone call in to see you in the office tomorrow January 23, 2020. Follow-up without fail and return to the emergency room should you have further issues. - Post Discharge Activity
[2020-01-22 16:11] VITALS: BP 104/67; PULSE 89; TEMP 98.3
== END 2020-01-22 16:05 | disposition home or self-care (01) ==
LOC: JER 14:20
DX: M79.672 Pain in left foot (principal)
CPT/HCPCS: 73630-TC-LT; 99283-25

== ENCOUNTER 2020-01-29 05:05 | Day surgery (SDC) | payer OTHER ==
[2020-01-25 09:42] VITALS: BMI 23.8
[~2020-01-29 05:05] MED LIST: HEPARIN NA (PORCINE) 5,000 UNITS/ML 1ML VIAL SQ ONE; LIDOCAINE HCL 1%, 10 MG/ML (20ML VIAL) NR ONE
[2020-01-29] MEDS ORDERED: HEPARIN NA (PORCINE) 5,000 UNITS/ML 1ML VIAL ONE ×2 (07:03→08:41)
[2020-01-29] MEDS ORDERED: LIDOCAINE HCL 1%, 10 MG/ML (20ML VIAL) ONE (07:04)
[2020-01-29] MEDS ORDERED: PROPOFOL 20 ML ONE (07:11)
[2020-01-29] MEDS ORDERED: MIDAZOLAM HCL 2 MG/2 ML SINGLE DOSE VIAL ONE (07:11)
--- NOTE | 2020-01-29 08:04 | HP ---
Admitting History and Physical - Admission Chief Complaint: left great toe wound. Pt here for angiogram and debridement. History Source: Patient Limitations to Obtaining History: No Limitations - Past Medical History Heme/Onc: Yes: Other (Recurrent pulmonary embolism) Musculoskeletal: Yes: Other (Rheumatoid arthritis) Rheumatology: Yes: Rheumatoid Arthritis Endocrine: Yes: Diabetes Insipidus - Smoking History Smoking history: Never smoked Have you smoked in the past 12 months: No - Alcohol/Substance Use Hx Alcohol Use: No - Social History History of Recent Travel: No Home Medications - Allergies Allergies/Adverse Reactions: Allergies Allergy/AdvReac Type Severity Reaction Status Date / Time enalapril Allergy Severe Cough Verified 01/25/20 09:44 vancomycin AdvReac Mild Itching Verified 01/22/20 14:22 - Home Medications Home Medications: Ambulatory Orders Insulin Lispro [Admelog] 10 unit SQ TID 04/27/18 Apixaban [Eliquis] 5 mg PO BID 01/17/19 Leflunomide 10 mg PO DAILY 01/17/19 Calcium Carbonate [Oysco-500] 500 mg PO DAILY 07/08/19 Atorvastatin Ca [Lipitor] 20 mg PO HS 10/09/19 Ferrous Sulfate 1 tab PO DAILY 10/09/19 Insulin Glargine,Hum.rec.anlog [Basaglar Kwikpen U-100] 10 unit SQ HS 10/09/19 Metformin HCl [Glucophage] 1,000 mg PO AM 10/09/19 Metoprolol Tartrate [Lopressor -] 25 mg PO DAILY 10/09/19 Omeprazole 1 tab PO DAILY 10/09/19 Methylprednisolone [Medrol -] 1 tab PO DAILY 01/08/20 Review of Systems - Review of Systems Constitutional: reports: No Symptoms Eyes: reports: No Symptoms HENT: reports: No Symptoms Neck: reports: No Symptoms Cardiovascular: reports: No Symptoms Respiratory: reports: No Symptoms Gastrointestinal: reports: No Symptoms Genitourinary: reports: No Symptoms Breasts: reports: No Symptoms Reported Musculoskeletal: reports: No Symptoms Integumentary: reports: No Symptoms Neurological: reports: No Symptoms Endocrine: reports: No Symptoms Hematology/Lymphatic: reports: No Symptoms Psychiatric: reports: No Symptoms Physical Examination Vital Signs: Vital Signs Temperature 97.4 F L 01/29/20 07:13 Pulse Rate 76 01/29/20 07:13 Respiratory Rate 20 01/29/20 07:13 Blood Pressure 113/64 01/29/20 07:13 O2 Sat by Pulse Oximetry (%) 96 01/29/20 07:13 Constitutional: Yes: Well Nourished, No Distress, Calm Eyes: Yes: WNL, Conjunctiva Clear, EOM Intact HENT: Yes: WNL, Atraumatic, Normocephalic Neck: Yes: WNL, Supple, Trachea Midline Cardiovascular: Yes: WNL, Regular Rate and Rhythm Respiratory: Yes: WNL, Regular, CTA Bilaterally Gastrointestinal: Yes: WNL, Normal Bowel Sounds Musculoskeletal: Yes: WNL Extremities: Yes: WNL Edema: No Peripheral Pulses WNL: No Integumentary: Yes: WNL Neurological: Yes: WNL, Alert, Oriented ...Motor Strength: WNL Psychiatric: Yes: WNL Problem List - Problems (1) Gangrene of toe of left foot Assessment/Plan: for angiogram and debridement of foot Torres Pearl DO Problems reviewed: Yes Code(s): I96 - GANGRENE, NOT ELSEWHERE CLASSIFIED
[2020-01-29] MEDS ORDERED: METOPROLOL TARTRATE 5 MG/5 ML VIAL ONE (08:12)
[2020-01-29] MEDS ORDERED: ceFAZolin SODIUM 1 GM VIAL IVPB ONE (08:34)
[2020-01-29] MEDS ORDERED: LIDOCAINE HCL 1%, 10 MG/ML (20ML VIAL) NR ONE (08:35)
[2020-01-29] MEDS ORDERED: HEPARIN NA (PORCINE) 5,000 UNITS/ML 1ML VIAL SQ ONE (08:35)
--- NOTE | 2020-01-29 09:27 | OP ---
Operative Note - Note: Operative Date: 01/29/20 Pre-Operative Diagnosis: left foot gangrene Operation: Aortogram, LLE angiogram, posterior tibial artery angioplasty Findings: two vessel runoff into foot. PT and AT Post-Operative Diagnosis: Same as Pre-op Surgeon: Torres Pearl Anesthesia: Fractional Estimated Blood Loss (mls): 50 Operative Report Dictated: Yes
[2020-01-29] MEDS ORDERED: ONDANSETRON 4 MG/2 ML VIAL IVPUSH PRN (09:29)
[2020-01-29] MEDS ORDERED: LACTATED RINGERS SOLUTION 1,000 ML IV SCH (09:30)
[2020-01-29 11:10] VITALS: TEMP 97.5
[2020-01-29] MEDS ORDERED: oxyCODONE HCL 5 MG TABLET PO ONE (11:39)
[2020-01-29] MEDS ORDERED: oxyCODONE HCL 5 MG TABLET ONE (11:41)
[2020-01-29 12:32] VITALS: BP 130/68; PULSE 94
--- NOTE | 2020-02-12 15:56 | OP ---
DATE OF OPERATION: 01/29/2020 PREOPERATIVE DIAGNOSIS: Left foot gangrene. POSTOPERATIVE DIAGNOSIS: Left foot gangrene. PROCEDURE: Aortogram, left lower extremity angiogram, posterior tibial artery angioplasty. FINDINGS: Two-vessel runoff into foot PT and AT. SURGEON: Torres Antonio DO ANESTHESIA: Fractional. ESTIMATED BLOOD LOSS: 50 mL. INDICATIONS: Patient is a 64-year-old male that has a nonhealing wound on his left foot where he had a great toe amputated along with its ray and now has a wound that is nonhealing. It was decided that he would need an angiogram to look at the runoff into the foot and see if we can bring more blood flow down. Patient came in through ambulatory surgery. Patient was COVID negative. Patient was consented for the procedure understanding all risks, benefits, and alternatives. He was then taken to the operating room. DETAILS OF PROCEDURE: Once in the operating room he was laid on the operating room table in supine manner and the area of the right and left groin was prepped and draped in a sterile surgical manner. We then injected 10 mL of lidocaine 1% over the right common femoral artery. We then took our micropuncture needle and punctured the right common femoral artery. Micropuncture wire was inserted. Micropuncture sheath was inserted and a traditional 5-Luxembourger sheath was inserted. We then placed a 0.035 floppy guidewire up into the aorta followed by an Omni Flush catheter. We then shot an angiogram by hand injection showing that the aorta and iliac arteries were without any disease. We then used a 0.035 floppy guidewire and went up and over to the left common femoral artery and Omni Flush catheter followed. We then shot an angiogram of the left lower extremity showing that the common femoral artery, the profunda, and the SFA were patent. The popliteal artery was patent. The anterior tibial artery was patent. The peroneal artery was open but then only goes down to the midcalf. The posterior tibial artery was patent but with severe stenosis in the proximal two-thirds. At this point we placed a 0.035 floppy guidewire into the SFA. We removed our Omni Flush catheter. We placed a 6 x 45 crossover sheath. Then 5000 units of IV heparin were administered to the patient. We then placed a 0.035 Quick-Cross catheter over the wire all the way down just below the knee and we were able to selectively cannulate our 0.035 wire into the posterior tibial artery and that was exchanged for a test pilot wire. We then went ahead and used a 2.5 x 150 Ultraverse balloon and we were able to perform angioplasty of the posterior tibial artery. Completion angiogram now showed that the posterior tibial artery was patent and there was good brisk flow down into the foot. At this point we decided that no more intervention was needed. The patient had good flow into the foot through AT and PT. We then went ahead and brought our sheath up and over. A StarClose device was successfully deployed in the right common femoral artery. Pressure was held for 5 minutes. After there was no more bleeding, the area was wet and dried and Dermabond was placed. The patient tolerated the procedure well with no complications. Patient transferred to PACU in stable condition. TORRES ANTONIO DO [id number]
== END 2020-01-29 12:40 | disposition home or self-care (01) ==
LOC: JASU-SURG 05:05
PROVIDERS: ATTEND Surgery Vascular Surgery
PROC: 047S3ZZ Dilation of Left Posterior Tibial Artery, Percutaneous Approach (ICD-10-PCS; principal; 2020-01-29 08:00)
PROC: B40DYZZ Plain Radiography of Aorta and Bilateral Lower Extremity Arteries using Other Contrast (ICD-10-PCS; 2020-01-29 08:00)
DX: E13.52 Other specified diabetes mellitus with diabetic peripheral angiopathy with gangrene (principal); I70.262 Atherosclerosis of native arteries of extremities with gangrene, left leg; Z79.4 Long term (current) use of insulin
CPT/HCPCS: 37228; C1725; 82962; 94760; J1644

== ENCOUNTER 2020-01-29 23:42 | Inpatient (IN) | payer OTHER ==
--- NOTE | 2020-01-30 00:31 | PDOC ---
History of Present Illness - General Chief Complaint: Pain, Acute Stated Complaint: FOOT PAIN - History of Present Illness Initial Comments: 64 yo male with PMH of DVT/PE, T2DM, HTN, HLD presents with shortness of breath for 2 hours. He recently had an angioplasty 16 hours ago. Prior to surgery, he was told to discontinue taking his apixaban for 3 days then restarted after his surgery (~4 hours ago). He also endorses a worsening cough, diaphoresis, and light headedness. He denies chest pain, leg pain, fevers, chills, nausea, vomiting, diarrhea. Past History - Medical History Allergies/Adverse Reactions: Allergies Allergy/AdvReac Type Severity Reaction Status Date / Time enalapril Allergy Severe Cough Verified 01/29/20 23:57 vancomycin AdvReac Mild Itching Verified 01/29/20 23:57 Home Medications: Ambulatory Orders Insulin Lispro [Admelog] 10 unit SQ TID 04/27/18 Apixaban [Eliquis] 5 mg PO BID 01/17/19 Leflunomide 10 mg PO DAILY 01/17/19 Calcium Carbonate [Oysco-500] 500 mg PO DAILY 07/08/19 Atorvastatin Ca [Lipitor] 20 mg PO HS 10/09/19 Ferrous Sulfate 1 tab PO DAILY 10/09/19 Insulin Glargine,Hum.rec.anlog [Basaglar Kwikpen U-100] 10 unit SQ HS 10/09/19 Metformin HCl [Glucophage] 1,000 mg PO AM 10/09/19 Metoprolol Tartrate [Lopressor -] 25 mg PO DAILY 10/09/19 Omeprazole 1 tab PO DAILY 10/09/19 Methylprednisolone [Medrol -] 1 tab PO DAILY 01/08/20 Anemia: Yes Asthma: Yes Cancer: No Cardiac Disorders: Yes (PE 02/2018, dvt) CVA: No COPD: No CHF: No Dementia: No Diabetes: Yes (type 2) GI Disorders: Yes (GERD,HERNIA) Disorders: No HTN: Yes Hypercholesterolemia: Yes Liver Disease: No Seizures: No Thyroid Disease: No - Surgical History Abdominal Surgery: No Appendectomy: No Cardiac Surgery: No Cholecystectomy: No Lung Surgery: Yes (STERNOTOMY) Neurologic Surgery: No Orthopedic Surgery: Yes (LEFT 1ST TOE AMPUTATION;) - Immunization History Immunization Up to Date: No - Psycho-Social/Smoking History Smoking History: Never smoked Have you smoked in the past 12 months: No - Substance Abuse Hx (Audit-C & DAST Scrn) How often the patient has a drink containing alcohol: Never Score: In Men: 4 or > Positive; In Women: 3 or > Positive: 0 Screen Result (Pos requires Nsg. Audit-10AR): Negative In the last yr the pt used illegal drug/Rx for NonMed reason: No Score: Yes response is considered Positive: 0 Screen Result (Positive result requires Nsg. DAST-10): Negative Review of Systems - Review of Systems Constitutional: Yes: Diaphoresis. No: Chills, Fever HEENTM: No: Recent change in vision, Double Vision Respiratory: Yes: Cough, Shortness of Breath, SOB at Rest Cardiac (ROS): Yes: Lightheadedness. No: Chest Pain, Edema, Palpitations, Syncope ABD/GI: No: Constipated, Diarrhea, Nausea, Vomiting Musculoskeletal: No: Muscle Pain, Muscle Weakness Neurological: No: Headache, Numbness, Paresthesia Psychiatric: No: Anxiety, Depression, Mood Swings Endocrine: Yes: Excessive Sweating. No: Flushing, Intolerance to Cold, Intolerance to Heat *Physical Exam - Vital Signs Last Vital Signs Temp Pulse Resp BP Pulse Ox 97.9 F 90 19 143/79 100 01/29/20 23:51 01/29/20 23:51 01/29/20 23:51 01/29/20 23:51 01/29/20 23:51 - Physical Exam General Appearance: Yes: Appropriately Dressed, Apparent Distress, Mild Distress HEENT: positive: EOMI, Normal Voice Respiratory/Chest: positive: Lungs Clear, Wheezing Cardiovascular: positive: Regular Rhythm, Regular Rate, S1, S2 Extremity: positive: Other (Recent amputation of great toe. Bandaged with healing wound. ) Neurologic: positive: Fully Oriented, Alert, Normal Mood/Affect ED Treatment Course - LABORATORY CBC & Chemistry Diagram: 01/30/20 01:30 01/30/20 01:30 Medical Decision Making - Medical Decision Making 64 yo male with PMH of DVT, PE, HTN, HLD presents to ED with a 2hour hx of SOB. He had an angiogram about 16 hours ago and was told to hold apixaban for 3days prior to his procedure. Currently waiting on chemistry to clear him for CTA scan. Vitals are wnl and sating 100% on RA. Discharge - Discharge Information Problems reviewed: Yes Clinical Impression/Diagnosis: Shortness of breath Condition: Fair - Follow up/Referral Referrals: Rod Boss [Primary Care Provider] - - Patient Discharge Instructions - Post Discharge Activity
--- NOTE | 2020-01-30 01:58 | PDOC ---
Documentation entered by Chase Storey SCRIBE, acting as scribe for Maria Elena Jacinto MD. Maria Elena Jacinto MD: This documentation has been prepared by the Prakash saldaña Xhesika, SCRIBE, under my direction and personally reviewed by me in its entirety. I confirm that the documentation accurately reflects all work, treatment, procedures, and medical decision making performed by me. Attending Attestation - Resident Resident Name: Marva Riggins - ED Attending Attestation I have performed the following: I have examined & evaluated the patient, The case was reviewed & discussed with the resident, I agree w/resident's findings & plan, Exceptions are as noted - HPI HPI: 01/30/20 01:41 The patient is a 64 y/o male with a PMH of DVT/PE, T2DM, HTN, HLD who presents to the ED with shortness of breath, cough, diaphoresis x2 hours. Pt states he had an angiogram and debridemenr of left bit toe. He was told to discontinue his apixaban for 3 days prior to his surgery and then restarted after his surgery. Allergies: enalapril, vancomycin 01/30/20 02:05 concern for ACS,PE,infilrates labs/ct scan - Physicial Exam PE: 01/30/20 01:55 Presents because he had 2 hours of some shortness of breath this evening. Earlier in the day he had angiogram and debridement of his left great toe by Dr. Pearl Past medical history diabetes, rheumatoid arthritis and pulmonary embolus 01/30/20 01:57 64-year-old male who was concerned because he felt short of breath and started coughing this evening Head normocephalic atraumatic Neck is supple Lungs no crackles CVS regular rate rhythm S1-S2 Abdomen is flat nontender skin warm and dry Neuro alert and oriented x3, motor strength 5 out of 5 bilaterally 01/30/20 02:23 - Medical Decision Making 01/30/20 23:59 pt admitted for shortness of breath Discharge - Discharge Information Problems reviewed: Yes Clinical Impression/Diagnosis: Shortness of breath Condition: Fair - Follow up/Referral - Patient Discharge Instructions - Post Discharge Activity
--- NOTE | 2020-01-30 02:24 | PDOC ---
*Physical Exam - Vital Signs Last Vital Signs Temp Pulse Resp BP Pulse Ox 97.9 F 90 19 143/79 100 01/29/20 23:51 01/29/20 23:51 01/29/20 23:51 01/29/20 23:51 01/29/20 23:51 ED Treatment Course - LABORATORY CBC & Chemistry Diagram: 01/31/20 07:15 01/31/20 07:15 Medical Decision Making - Medical Decision Making 01/30/20 02:21 Pt received on s/o from Dr. Riggins. Hx of DVT and PE. Angiogram this morning. Stopped eliquis Fri/Wed/Sun, took first dose 6 hours [employer]. Worsening cough/diaphoresis. VSS. Short of breath, speaking in broken sentences. Will review labs and order CTA. 01/30/20 04:16 CTA negative for obvious PE. Mild patchy infiltrate LLL. Will start zoyn. 01/30/20 05:10 D/w medicine team who accepts the patient for admission. Discharge - Discharge Information Problems reviewed: Yes Clinical Impression/Diagnosis: Shortness of breath Pneumonia Qualifiers: Laterality: left Lung location: lower lobe of lung Condition: Fair - Admission Yes - Follow up/Referral - Patient Discharge Instructions - Post Discharge Activity
[2020-01-30] MEDS ORDERED: ALBUTEROL SO4 HFA INHALER IH ONE ×2 (02:29→03:07)
[2020-01-30 02:30] LABS: HEMOGLOBIN 11.4 GM/dL (11.7-16.9); MCH 28.6 pg (25.7-33.7); MCHC 32.4 g/dl (32.0-35.9); MEAN CELL VOLUME 88.2 fl (80-96); MEAN PLT VOLUME 8.3 fl (7.5-11.1); PLATELET COUNT 452 K/MM3 (134-434); RBC 3.97 M/mm3 (4.00-5.60); RDW 13.7 % (11.9-15.9); WHITE BLOOD COUNT 13.2 K/mm3 (4.0-10.0)
[2020-01-30 03:00] LABS: ALBUMIN 2.7 g/dl (3.4-5.0); ALK PHOS 62 U/L (45-117); BILIRUBIN,TOTAL 0.4 mg/dL (0.2-1); CO2 24 mmol/L (21-32); CREATININE 0.8 mg/dL (0.55-1.3); GLUCOSE,RANDOM 141 mg/dL (74-106); POTASSIUM 4.2 mmol/L (3.5-5.1); SGOT/AST 24 U/L (15-37); SGPT/ALT 15 U/L (13-61); SODIUM 140 mmol/L (136-145); TOT PROT 6.5 g/dl (6.4-8.2)
[2020-01-30 03:18] LABS: ANION GAP 9 MMOL/L (8-16); CHLORIDE 107 mmol/L (98-107)
[2020-01-30] MEDS ORDERED: PIPERACILLIN/TAZOB 3.375 GM 3.375 GM in DEXTROSE 5%-WATER - 50 ML IVPB ONE (04:19)
[2020-01-30] MEDS ORDERED: PIPERACILLIN/TAZOB 3.375 GM 3.375 GM/50 ML BAG IVPB ONE ×2 (04:54→13:18)
--- NOTE | 2020-01-30 05:10 | PN ---
Teaching Attending Note Name of Resident: Todd Leal ATTENDING PHYSICIAN STATEMENT I saw and evaluated the patient. I reviewed the resident's note and discussed the case with the resident. I agree with the resident's findings and plan as documented. SUBJECTIVE: Patient is a 64 year old man with PMH of DVT/PE, NIDDM, HTN, HLD and Right first toe wound presents with shortness of breath for 2 hours. He just had LLE angiogram, posterior tibial artery angioplasty and debridement of left foot wound 16 hours ago. Prior to surgery, he was told to discontinue taking his Apixaban for 3 days then restarted after his surgery (~4 hours ago). He also has a worsening cough, diaphoresis and light headedness. Patient was hospitalized at our hospital last month for right first toe wound infection and amputation and was treated with IV Vancomycin and Zosyn. Tested negative twice for COVID-19 last month. He denies chest pain, leg pain, fevers, chills, nausea, vomiting, diarrhea or dysuria. Denies alcohol, tobacco or illicit drug use. No sick contacts or recent travels. Family history is unremarkable. OBJECTIVE: Alert Vital Signs Period Temp Pulse Resp BP Sys/Dawson Pulse Ox Last 24 Hr 97.9 F 90 19 143/79 100 HEENT: No Jaundice, eye redness or discharge, PERRLA, EOMI. Normocephalic, atraumatic. External ears are normal and hearing is grossly intact. No nasal discharge. Neck: Supple, nontender. No palpable adenopathy or thyromegaly. No JVD Chest: Good effort. Clear to auscultation and percussion. Heart: Regular. No S3, rub or murmur Abdomen: Not distended, soft, nontender and no HSM. No rebound or guarding. Normal bowel sounds. Ext: Peripheral pulses intact. No leg edema. Left 1st toe amputation and wound. Skin: Warm and dry. No petechiae, rash or ecchymosis. Neuro: Alert. Oriented x3. CN 2-12 grossly intact. Sensation grossly intact in all four extremities and DTR are symmetric. Psych: Appropriate mood and affect. Good insight. Home Medications Medication Instructions Recorded Insulin Lispro [Admelog] 10 unit SQ TID 04/27/18 Apixaban [Eliquis] 5 mg PO BID 01/17/19 Leflunomide 10 mg PO DAILY 01/17/19 Calcium Carbonate [Oysco-500] 500 mg PO DAILY 07/08/19 Atorvastatin Ca [Lipitor] 20 mg PO HS 10/09/19 Ferrous Sulfate 1 tab PO DAILY 10/09/19 Insulin Glargine,Hum.rec.anlog 10 unit SQ HS 10/09/19 [Basaglar Kwikpen U-100] Metformin HCl [Glucophage] 1,000 mg PO AM 10/09/19 Metoprolol Tartrate [Lopressor -] 25 mg PO DAILY 10/09/19 Omeprazole 1 tab PO DAILY 10/09/19 Methylprednisolone [Medrol -] 1 tab PO DAILY 01/08/20 Abnormal Lab Results 01/30/20 01/30/20 01:30 01:30 WBC 13.2 H RBC 3.97 L Hgb 11.4 L Hct 35.0 L Plt Count 452 H D BUN 6.0 L Random Glucose 141 H Albumin 2.7 L Current Medications Generic Name Dose Route Start Last Admin Trade Name Freq PRN Reason Stop Dose Admin Apixaban 5 mg 01/30/20 10:00 Eliquis - PO BID [facility] Atorvastatin Calcium 20 mg 01/30/20 22:00 Lipitor - PO HS [facility] Calcium Carbonate 500 mg 01/30/20 10:00 Os-Scott 500mg - PO DAILY [facility] Guaifenesin 10 ml 01/30/20 06:23 Diabetic Tussin Dm - PO Q4H PRN COUGH Piperacillin Sod/Tazobactam 50 mls @ 100 mls/hr 01/30/20 13:00 Sod 3.375 gm/ Dextrose IVPB Q8H-IV ZAIN Protocol Linezolid 600 mg/ 300 mls @ 300 mls/hr 01/30/20 06:30 Miscellaneous IVPB Q12H [facility] Protocol Insulin Aspart 0 vial 01/30/20 07:00 Novolog Vial Sliding Scale - SQ ACHS [facility] Protocol Leflunomide 10 mg 01/30/20 10:00 Arava - PO DAILY [facility] Methylprednisolone 4 mg 01/30/20 10:00 Medrol - PO DAILY [facility] Metoprolol Tartrate 25 mg 01/30/20 10:00 Lopressor - PO DAILY [facility] Non-Formulary Medication 1 tab 01/30/20 10:00 Ferrous Sulfate [Ferrous Sulfate] PO DAILY [facility] Non-Formulary Medication 1 tab 01/30/20 10:00 Omeprazole [Omeprazole] PO DAILY [facility] ASSESSMENT AND PLAN: 1. LLL Pneumonia - No acute abnormality on CXR. CTA chest shows mild patchy infiltrate in he LLL, but no pulmonary embolism. Blood cultures ordered. Patient being treated with IV Zosyn, IV Linezolid and IV NS. Viral testing for COVID-19 ordered and patient placed on airborne, droplet and contact isolation. EKG shows NSR at 82/minute, LAFB and QTc [address]-T wave changes. Initial troponin is negative. Will admit to telemetry. Continue daily wound care for left first to wound. Will continue comprehensive care for all of patients comorbid conditions including Eliquis for VTE. 2. Hypoalbuminemia - Possibly due to combined effects of malnutrition and inflammation associated with comorbid conditions. Will ensure adequate dietary protein intake and also consult tip mender. Urinalysis pending. 3. DM For now, we will hold the home diabetes drugs and implement sliding scale insulin regimen. Provide comprehensive diabetes care with patient teaching and counseling about the importance of adherence to prescribed diabetes regimen, euglycemia, eye care and foot care. 4. Anemia - Cause unclear. Will do basic anemia work up including serial stool guaiacs, reticulocyte count and iron studies. 5. Hypertension Will ensure that he is still on an ARB. Restart suitable outpatient antihypertensive drugs when clinically appropriate. Subsequently, will revise regimen to ensure [id number] excellent BP control. Patient counseled on the injurious effects of uncontrolled hypertension. Nonpharmacologic measures to control hypertension like weight loss, salt restriction and exercise stressed. Importance of adherence to treatment regimen and attainment of normotension emphasized. 6. DVT prophylaxis - On Eliquis for VTE. 7. Advance directives - Full code
[2020-01-30] MEDS ORDERED: ACETAMINOPHEN 325 MG TABLET (FP) PO ONE (05:22)
[2020-01-30] MEDS ORDERED: ACETAMINOPHEN 325 MG TABLET (FP) ONE ×2 (05:23→20:01)
[2020-01-30] MEDS ORDERED: LINEZOLID 600 MG PREMIX BAG 600 MG in PREMIX 300 IVPB SCH (06:30)
--- NOTE | 2020-01-30 07:35 | HP ---
CHIEF COMPLAINT: I had SOB after I ate PCP: Dr. Boss HISTORY OF PRESENT ILLNESS: Dayanna macedo is a 64 y M with a PMH of DVT, PE(2018) s/p open chest thrombectomy, s/p 1st L. toe amputation, T2DM, Iron deficiency anemia, HTN, and HLD, presents with SOB for 2hrs associated with cough, diaphoresis and lightheadedness. Patient was recently in the hospital, 1 day ago, for a LLE angiogram, L posterior tibial artery angioplasty and a debridement of his L.great toe. Prior to the procedure, his medication, apixaban was discontinued for 3 days and restarted yesterday. Patient's previous admission from 01/07-01-14 , patient presented s/p 1st L. toe amputation (2 months ago), with L 1st toe discomfort and increasing drainage of fluid and pus from the wound. MRI (01/07) was significant for evidence of left toe osteomyelitis. on 01/08, the patient underwent debridment and partial resection of prior amputation site, with bone biopsy positive for osteomyelitis and culture positive for GBS and MRSA infections. pts lab results revealed Covid negative and Blood culture x3 negative. He was given Vanc + zosyn for 3 days and bactrim for 3 days during his stay and he was discharged with bactrim for 7days. ER course was notable for: (1) CTA- Patchy lower lobe infiltrate (2) (3) Recent Travel: denies PAST MEDICAL HISTORY: As above in HPI PAST SURGICAL HISTORY: As above in HPI Social History: Smoking: Denies Alcohol: Denies Drugs: Denies Allergies enalapril Allergy (Severe, Verified 01/29/20 23:57) Cough vancomycin Adverse Reaction (Mild, Verified 01/29/20 23:57) Itching DATE/TIME OF REACTION: 01/11/2020 @ 0552 HOME MEDICATIONS: Home Medications Medication Instructions Recorded Insulin Lispro [Admelog] 10 unit SQ TID 04/27/18 Apixaban [Eliquis] 5 mg PO BID 01/17/19 Leflunomide 10 mg PO DAILY 01/17/19 Calcium Carbonate [Oysco-500] 500 mg PO DAILY 07/08/19 Atorvastatin Ca [Lipitor] 20 mg PO HS 10/09/19 Ferrous Sulfate 1 tab PO DAILY 10/09/19 Insulin Glargine,Hum.rec.anlog 10 unit SQ HS 10/09/19 [Tami Stiles U-100] Metformin HCl [Glucophage] 1,000 mg PO AM 10/09/19 Metoprolol Tartrate [Lopressor -] 25 mg PO DAILY 10/09/19 Omeprazole 1 tab PO DAILY 10/09/19 Methylprednisolone [Medrol -] 1 tab PO DAILY 01/08/20 REVIEW OF SYSTEMS CONSTITUTIONAL: Present: loss of appetite, malaise Absent: fever, chills, diaphoresis, generalized weakness HEENT: Absent: rhinorrhea, nasal congestion, throat pain, difficulty swallowing, CARDIOVASCULAR: Present: lightheadedness Absent: chest pain, syncope, palpitations, , peripheral edema RESPIRATORY: Present: cough, shortness of breath Absent: , dyspnea with exertion, orthopnea, wheezing GASTROINTESTINAL: Absent: abdominal pain, abdominal distension, nausea, vomiting, diarrhea, constipation GENITOURINARY: Absent: dysuria, frequency, urgency, hesitancy, hematuria, flank pain, genital pain PHYSICAL EXAMINATION Vital Signs - 24 hr 01/29/20 01/30/20 23:51 05:50 Temperature 97.9 F Pulse Rate 90 Pulse Rate [ 77 Left Radial] Respiratory 19 20 Rate Blood Pressure 143/79 Blood Pressure 137/69 [Right Arm] O2 Sat by Pulse 100 97 Oximetry (%) GENERAL: Awake, alert, and fully oriented, in no acute distress. HEAD: Normal with no signs of trauma. EYES: Pupils equal, round and reactive to light, extraocular movements intact, sclera anicteric, conjunctiva clear. EARS, NOSE, THROAT: Ears normal, nares patent, oropharynx clear without exudates. Moist mucous membranes. NECK: Normal range of motion, supple without lymphadenopathy, JVD, or masses. LUNGS: Breath sounds equal. + expiratory wheezes b/l , and + Left lower lung field crackles. No accessory muscle use. HEART: Regular rate and rhythm, normal S1 and S2 without murmur, rub or gallop. ABDOMEN: Soft, nontender, not distended, normoactive bowel sounds, no guarding, no rebound, no masses. MUSCULOSKELETAL: Normal range of motion at all joints. No bony deformities or tenderness. No CVA tenderness. UPPER EXTREMITIES: 2+ pulses, warm, well-perfused. No cyanosis. No clubbing. No peripheral edema. LOWER EXTREMITIES: diminished pulses, No calf tenderness. No peripheral edema. L.1st big toe amputation, covered with dressings, Non bloody without drainage, unable to palpate pulse of LLE. SKIN: Warm, dry, normal turgor, no rashes or lesions noted, normal capillary refill. Laboratory Results - last 24 hr 01/30/20 01/30/20 01:30 01:30 WBC 13.2 H RBC 3.97 L Hgb 11.4 L Hct 35.0 L MCV 88.2 MCH 28.6 MCHC 32.4 RDW 13.7 Plt Count 452 H D MPV 8.3 D Sodium 140 Potassium 4.2 Chloride 107 Carbon Dioxide 24 Anion Gap 9 BUN 6.0 L Creatinine 0.8 Est GFR (CKD-EPI)AfAm 110.96 Est GFR (CKD-EPI)NonAf 95.74 Random Glucose 141 H Calcium 9.0 Total Bilirubin 0.4 AST 24 ALT 15 Alkaline Phosphatase 62 Creatine Kinase 60 Troponin I < 0.02 Total Protein 6.5 Albumin 2.7 L Imagin. CTA: - No large Central Pulmonary artery embolism. - Mild patchy nonspecific left lower lobe infiltrate most likely due to pneumonia or aspiration pneumonia - Mild bilateral basilar peripheral predominant reticulonodular lung scarring - status post sternotomy and bypass. Calcified coronary artery arteriosclerosis - small hiatal hernia ASSESSMENT/PLAN: This is a 64 y M with a PMH of DVT, PE(2018) s/p open chest thr ombectomy, s/p 1st L. toe amputation, T2DM, Iron deficiency anemia, HTN, and HLD, presents with SOB for 2hrs associated with cough, diaphoresis and lightheadedness. Labs revealed elevated WBC 13.2 with elevated PLT 452, decreased H/H 11.4/35. CTA was negative for PE, but revealed patchy infiltration of L. Lower lobe. Patient is admitted for management of Pneumonia. #Left Lower Lobe Pneumonia Assessment: - 2 hrs of SOB, associated with cough - Elevated WBC 13.2, Elevated PLTs 452 - CTA: Mild patchy nonspecific left lower lobe infiltrate most likely due to pneumonia or aspiration pneumonia Plan: - Patient was given Zosyn 3.375 in ED - Continue Zosyn 3.375mg and Linezolid 600mg, Because patient was recently hospitalized and was on Antibiotics, need to cover for pseudomonas and MRSA - F/U Sputum Culture - ID is consulted, Alonzo Avitia for evaluation of CAP - Pulm Consulted, Jack Solo, to evaluate for reticulonodular lung scarring on CTA and CAP/COVID #Foot wound - Consult wound care # Anemia - Normocytic, Normal MCV - Ordered reticulocytes count and Iron studies - Ordered FOBT #DM - Started BGM and sliding scale #DVT Prophylaxis: On Eliquis for VTE #FEN: - No standing fluids - Monitor electrolytes - Diabetic Diet #Dispo: Admit to Med-Surg, pending ID and Pulm recs Visit type - Emergency Visit Emergency Visit: Yes ED Registration Date: 01/30/20 Care time: The patient presented to the Emergency Department on the above date and was hospitalized for further evaluation of their emergent condition. - New Patient This patient is new to me today: Yes Date on this admission: 01/31/20 - Critical Care Critical Care patient: No ATTENDING PHYSICIAN STATEMENT I saw and evaluated the patient. I reviewed the resident's note and discussed the case with the resident. I agree with the resident's findings and plan as documented. SUBJECTIVE: OBJECTIVE: ASSESSMENT AND PLAN:
[2020-01-30] MEDS: INSULIN SLIDING SCALE (NOVOLOG) 1 VIAL SQ SCH ×4 (07:56→22:30)
[2020-01-30] MEDS ORDERED: LINEZOLID 600 MG PREMIX BAG 600 MG/300 ML BAG IVPB SCH (08:00)
[2020-01-30 08:13] LABS: PH,URINE 7.5 (5.0-8.0); URINE APPEARANCE CLEAR; URINE BILIRUBIN NEGATIVE (NEGATIVE); URINE COLOR YELLOW; URINE GLUCOSE (UA) NEGATIVE (NEGATIVE); URINE KETONE NEGATIVE (NEGATIVE); URINE LEUK ESTERASE NEGATIVE (NEGATIVE); URINE NITRITE NEGATIVE (NEGATIVE); URINE PROTEIN NEGATIVE (NEGATIVE); URINE UROBILINOGEN 0.2 mg/dL (0.2-1.0)
[2020-01-30] MEDS ORDERED: APIXABAN 5 MG TABLET ONE (09:13)
[2020-01-30] MEDS ORDERED: METOPROLOL TARTRATE 25 MG TABLET (FP) ONE (09:13)
[2020-01-30] MEDS ORDERED: FERROUS SO4 325 MG TABLET (FP) ONE (09:13)
[2020-01-30] MEDS: METOPROLOL TARTRATE 25 MG TABLET (FP) PO SCH (10:13)
[2020-01-30] MEDS: LEFLUNOMIDE 10 MG TABLET PO SCH (10:13)
[2020-01-30] MEDS: FERROUS SO4 325 MG TABLET (FP) PO SCH (10:13)
[2020-01-30] MEDS: CALCIUM (OYSTER SHELL) 500 MG TABLET (FP) PO SCH (10:13)
[2020-01-30] MEDS: methylPREDNISolone 4 MG TABLET PO SCH (10:13)
[2020-01-30] MEDS: APIXABAN 5 MG TABLET PO SCH ×2 (10:13→22:31)
[2020-01-30] MEDS: PANTOPRAZOLE 20 MG TABLET PO SCH (10:13)
--- NOTE | 2020-01-30 12:03 | EKG ---
Test Reason : Blood Pressure : / mmHG Vent. Rate : 082 BPM Atrial Rate : 082 BPM P-R Int : 158 ms QRS Dur : 094 ms QT Int : 386 ms P-R-T Axes : 063 -54 039 degrees QTc Int : 450 ms NORMAL SINUS RHYTHM LEFT ANTERIOR FASCICULAR BLOCK ABNORMAL ECG WHEN COMPARED WITH ECG OF 08-JAN-2020 09:59, NO SIGNIFICANT CHANGE WAS FOUND Confirmed by MD Flaco, Gerhard ([id number]) on 01/30/2020 12:03:00 PM Referred By: Confirmed By:Gerhard Sam MD
[2020-01-30] MEDS ORDERED: PIPERACILLIN/TAZOB 3.375 GM 3.375 GM in DEXTROSE 5%-WATER - 50 ML IVPB SCH (13:00)
--- NOTE | 2020-01-30 13:26 | CON.PULM ---
Consult Consult Specialty:: PULM/CCM Referred by:: Hospitalist Reason for Consultation:: SOB - History of Present Illness Chief Complaint: SOB History of Present Illness: 64 M, history of LLE DVT and DVT in 2015. Patient reports that he required open heart surgery due to his PE at [facility]. He was initially on Coumadin but now takes Eliquis. Additional history of DM, HTN, HLD, and osteomyelitis. Reports being off his Eliquis for 3 days prior to an I & D on the 08 of January. Admitted via the ER due to SOB. Symptom seem more insidious. Denies fever or chills. No COVID19 exposure. No hemoptysis. No obvious occupational exposure. CT: No PE / chronic appearing ILD with bibasilar honeycombing / no acute process . - History Source History Provided By: Patient Limitations to Obtaining History: No Limitations - Past Medical History Pulmonary: Yes: Bronchitis, Pneumonia, Pulmonary Embolus. No: Asthma, Cancer, COPD, O2 Dependent, Previously Intubated, Pulmonary Fibrosis, Sleep Apnea Musculoskeletal: Yes: Other (Rheumatoid arthritis) Rheumatology: Yes: Rheumatoid Arthritis Endocrine: Yes: Diabetes Insipidus - Alcohol/Substance Use Hx Alcohol Use: No - Smoking History Smoking history: Never smoked Have you smoked in the past 12 months: No - Social History History of Recent Travel: No Home Medications - Allergies Allergies/Adverse Reactions: Allergies Allergy/AdvReac Type Severity Reaction Status Date / Time enalapril Allergy Severe Cough Verified 01/29/20 23:57 vancomycin AdvReac Mild Itching Verified 01/29/20 23:57 - Home Medications Home Medications: Ambulatory Orders Calcium Carbonate [Oysco-500] 500 mg PO DAILY 07/08/19 Ferrous Sulfate 1 tab PO DAILY 10/09/19 Apixaban [Eliquis -] 5 mg PO BID 01/30/20 Atorvastatin Ca [Lipitor] 20 mg PO HS 01/30/20 Insulin Glargine,Hum.rec.anlog [Prafulagljosiah Stiles U-100] 10 unit SQ HS 01/30/20 Insulin Lispro [Admelog] 10 unit SQ AC 01/30/20 Leflunomide 10 mg PO DAILY 01/30/20 Methylprednisolone [Medrol -] 4 mg PO DAILY 01/30/20 Metoprolol Tartrate 25 mg PO DAILY 07/07/20 Omeprazole 20 mg PO DAILY 01/30/20 Telmisartan 20 mg PO DAILY 01/30/20 metFORMIN HCL [Metformin ER Osmotic] 1,000 mg PO DAILY 01/30/20 Albuterol Sulfate Inhaler - [Ventolin HFA Inhaler -] 1 - 2 inh PO Q4H #1 inhaler 01/31/20 Budesonide/Formeterol Fumarate [SYMBICORT 80/4.5mcg -] 1 inh PO BID #1 cannister 01/31/20 Review of Systems - Review of Systems Constitutional: reports: Malaise. denies: Chills, Fever Eyes: reports: No Symptoms HENT: reports: No Symptoms Neck: reports: No Symptoms Cardiovascular: reports: Shortness of Breath. denies: Chest Pain, Edema, Palpitations Respiratory: reports: Cough, SOB, SOB on Exertion. denies: Hemoptysis, Orthopnea, PND, Snoring, Wheezing Gastrointestinal: reports: No Symptoms Genitourinary: reports: No Symptoms Breasts: reports: No Symptoms Reported Musculoskeletal: reports: Joint Pain, Joint Swelling, Muscle Pain, Muscle Weakness Neurological: reports: No Symptoms Endocrine: reports: No Symptoms Hematology/Lymphatic: reports: No Symptoms Psychiatric: reports: No Symptoms Physical Exam Vital Sings: Vital Signs Temperature 98 F 01/30/20 07:10 Pulse Rate 72 01/30/20 11:01 Respiratory Rate 18 01/30/20 11:01 Blood Pressure 127/74 01/30/20 11:01 O2 Sat by Pulse Oximetry (%) 97 01/30/20 11:01 Constitutional: Yes: No Distress, Calm Eyes: Yes: Conjunctiva Clear, EOM Intact HENT: Yes: Atraumatic, Normocephalic Neck: Yes: Supple, Trachea Midline Cardiovascular: Yes: Regular Rate and Rhythm Respiratory: Yes: Cough, Diminished, Rhonchi, Stridor. No: Accessory Muscle U se, Rales, SOB, SOB on Exertion, Tachypnea, Wheezes ...Inspection: Yes: Other (Sternal scar ) ...Clubbing: No Gastrointestinal: Yes: Normal Bowel Sounds, Soft Musculoskeletal: Yes: Back Pain, Joint Stiffness Extremities: Yes: Amputation, Other (Bandaged LLE) Edema: Yes Peripheral Pulses WNL: No Integumentary: Yes: Venous Stasis Changes Neurological: Yes: WNL, Alert, Oriented ...Motor Strength: WNL Psychiatric: Yes: WNL, Alert, Oriented Labs: CBC, BMP 01/30/20 01:30 01/30/20 01:30 Imaging - Results Chest X-ray: Report Reviewed, Image Reviewed Cat Scan: Report Reviewed, Image Reviewed Problem List - Problems (1) ILD (interstitial lung disease) Code(s): J84.9 - INTERSTITIAL PULMONARY DISEASE, UNSPECIFIED (2) Diabetic foot ulcer Code(s): E11.621 - TYPE 2 DIABETES MELLITUS WITH FOOT ULCER; L97.509 - NON- PRESSURE CHRONIC ULCER OTH PRT UNSP FOOT W UNSP SEVERITY (3) Painful amputation stump Code(s): T87.89 - OTHER COMPLICATIONS OF AMPUTATION STUMP; M79.609 - PAIN IN UNSPECIFIED LIMB (4) Shortness of breath Code(s): R06.02 - SHORTNESS OF BREATH (5) Hypercholesterolemia Code(s): E78.00 - PURE HYPERCHOLESTEROLEMIA, UNSPECIFIED (6) Hypertension Code(s): I10 - ESSENTIAL (PRIMARY) HYPERTENSION (7) Recurrent pulmonary embolism Code(s): I26.99 - OTHER PULMONARY EMBOLISM WITHOUT ACUTE COR PULMONALE (8) Rheumatoid arthritis Code(s): M06.9 - RHEUMATOID ARTHRITIS, UNSPECIFIED (9) Type 2 diabetes mellitus Code(s): E11.9 - TYPE 2 DIABETES MELLITUS WITHOUT COMPLICATIONS Assessment/Plan IMP: Do not suspect PNA or acute infectious process. ILD likely related to RA Do not suspect PE Dyspnea likely related to chronic lung disease and likely PAH PLAN: Short course of oral steroids LAMA/LABA No smoking No indication for ABX PFTs after discharge There is no Pulmonary contraindication for DC home Thank you. Dr Leiva
--- NOTE | 2020-01-30 14:23 | PN ---
Teaching Attending Note Name of Resident: Tony Driscoll ATTENDING PHYSICIAN STATEMENT I saw and evaluated the patient. I reviewed the resident's note and discussed the case with the resident. I agree with the resident's findings and plan as documented. SUBJECTIVE: No fever or chills. cough with no sputum production . No cp , no palpitations. denies wheezing. has no sick contact. procedure with angiogram and angioplasty yesterday . SOB with laying flat. beter with sitting position he resumed his eliquis last night . he follows with Pulm as out pt , but not aware of having any interstitial lung disease or IPF OBJECTIVE: NAD, awake, alert. cooperative , comfortable in bed . dry MM ( old and chronic for patient ) CV: RRR, no MRG , NO JVD Lungs: bibasilar crackles , no wheezes. slightly prolonged exp phase . Abd: soft, NT, ND, NL BS Ext: No edema or erythema on legs. L foot wrapped in a dressing. last 4 toes visible, with no color changes, and normal sensation . can move all 4 toes. DP 1+ on R side. no skin breakdown . patient declined unwrapping the foot. R groin small wound with good healing and no erytehma . No drainage . slight tenderness at site of angiogram ASSESSMENT AND PLAN: 64 y/o man with h/o DVT, PE, HLP, s/p sternotomy and thrmbectomy, HTN, s/p L big toe gangrene and amputation, iron def anemia, RA , s/p LLE angiogram and L posterior tibial artery angioplasty and other medical problems who presented with SOB and cough 1- Shortness of breath , and cough. CTA reviewed. no PE. L base with small amount of changes, that might be a little more prominant than what's seen on previous CT. NO signs of pulm edema , or pleural effusions. I doubt PNA in this patient as there is no sputum production , no fever , and no convincing radiologic evidence. No evidence of volume overload . doubt covid pneumonitis ? ILD - will wait for pulm recs . - hold off Abx pendign ID eval. 2- H/o PE: - cont home eliquis 3- H/o DM: will resume his HS LA insulin cont SSI 4- H/o RA . cont chronic prednisolone cont leflunamide 5- PVD: s/p angioplasty and L was not able to evaluate the L foot. - Patient prefers wound care MD to evaluate his foot. - will consult and Dae - cont statin 5- will confirm meds
[2020-01-30] MEDS: DOCUSATE SODIUM 100 MG CAPSULE (FP) PO SCH ×2 (14:28→22:31)
--- NOTE | 2020-01-30 15:25 | PN ---
Progress Note (short form) - Note Progress Note: ID consult dictated imp/reccd 64 yo man with pmh of PVD s/p recent amputation of the left big toe (ray amputation) on January 08 s/p angiogram and angioplasty LLE on 01/28 admitted with cough laying flat, comfortable in chair and sensation of SOB chest CTA done in ED- mild ILD, no acute infiltrates no fevers on a/c for prior history of PE and DVT no signs of pneumonia on exam or chest ct amputation site is without erythema or drainage angiogram access sites no erythema f/u cultures observe off antibiotics Problem List - Problems (1) Shortness of breath Code(s): R06.02 - SHORTNESS OF BREATH (2) PVD (peripheral vascular disease) Code(s): I73.9 - PERIPHERAL VASCULAR DISEASE, UNSPECIFIED (3) Status post amputation of left great toe Code(s): Z89.412 - ACQUIRED ABSENCE OF LEFT GREAT TOE
--- NOTE | 2020-01-30 19:38 | PN ---
Physical Exam: SUBJECTIVE: Patient seen and examined bedside in the ED. Complaining of SOB, feeling chills and a cough that's chronic but is now worse. OBJECTIVE: Vital Signs Vital Signs - 8 hr 01/30/20 16:35 Pulse Rate [ 78 Left Radial] Blood Pressure 124/75 [Right Arm] O2 Sat by Pulse 97 Oximetry (%) GENERAL: The patient is awake, alert, and fully oriented, in no acute distress. HEAD: Normal with no signs of trauma. NECK: Trachea midline, full range of motion, supple, no JVD LUNGS: Breath sounds BL lower lung crackles HEART: Regular rate and rhythm, S1, S2 without murmur, rub or gallop. ABDOMEN: Soft, nontender, nondistended, normoactive bowel sounds, no guarding EXTREMITIES:warm, well-perfused, no edema, right side inguinal incision site from cath procedure, looks clean, no discharge. Patient left foot first digit amputation. Laboratory Results - last 24 hr 01/30/20 01/30/20 01/30/20 01:30 01:30 07:15 WBC 13.2 H RBC 3.97 L Hgb 11.4 L Hct 35.0 L MCV 88.2 MCH 28.6 MCHC 32.4 RDW 13.7 Plt Count 452 H D MPV 8.3 D Sodium 140 Potassium 4.2 Chloride 107 Carbon Dioxide 24 Anion Gap 9 BUN 6.0 L Creatinine 0.8 Est GFR (CKD-EPI)AfAm 110.96 Est GFR (CKD-EPI)NonAf 95.74 POC Glucometer Random Glucose 141 H Calcium 9.0 Total Bilirubin 0.4 AST 24 ALT 15 Alkaline Phosphatase 62 Creatine Kinase 60 Troponin I < 0.02 Total Protein 6.5 Albumin 2.7 L Urine Color Yellow Urine Appearance Clear Urine pH 7.5 Ur Specific [place] 1.035 Urine Protein Negative Urine Glucose (UA) Negative Urine Ketones Negative Urine Blood Negative Urine Nitrite Negative Urine Bilirubin Negative Urine Urobilinogen 0.2 Ur Leukocyte Esterase Negative U Random Total Protein Urine Creatinine Protein/Creatinin Ratio 01/30/20 01/30/20 01/30/20 07:15 07:53 11:54 WBC RBC Hgb Hct MCV MCH MCHC RDW Plt Count MPV Sodium Potassium Chloride Carbon Dioxide Anion Gap BUN Creatinine Est GFR (CKD-EPI)AfAm Est GFR (CKD-EPI)NonAf POC Glucometer 150 194 Random Glucose Calcium Total Bilirubin AST ALT Alkaline Phosphatase Creatine Kinase Troponin I Total Protein Albumin Urine Color Urine Appearance Urine pH Ur Specific [place] Urine Protein Urine Glucose (UA) Urine Ketones Urine Blood Urine Nitrite Urine Bilirubin Urine Urobilinogen Ur Leukocyte Esterase U Random Total Protein 16.0 H Urine Creatinine 58.0 L Protein/Creatinin Ratio 0.3 01/30/20 17:39 WBC RBC Hgb Hct MCV MCH MCHC RDW Plt Count MPV Sodium Potassium Chloride Carbon Dioxide Anion Gap BUN Creatinine Est GFR (CKD-EPI)AfAm Est GFR (CKD-EPI)NonAf POC Glucometer 221 Random Glucose Calcium Total Bilirubin AST ALT Alkaline Phosphatase Creatine Kinase Troponin I Total Protein Albumin Urine Color Urine Appearance Urine pH Ur Specific [place] Urine Protein Urine Glucose (UA) Urine Ketones Urine Blood Urine Nitrite Urine Bilirubin Urine Urobilinogen Ur Leukocyte Esterase U Random Total Protein Urine Creatinine Protein/Creatinin Ratio Active Medications Generic Name Dose Route Start Last Admin Trade Name Freq PRN Reason Stop Dose Admin Acetaminophen 650 mg 01/30/20 18:04 Tylenol - PO Q6H PRN PAIN LEVEL 4 - 6 Apixaban 5 mg 01/30/20 10:00 01/30/20 10:13 Eliquis - PO 5 mg BID ZAIN Administration Atorvastatin Calcium 20 mg 01/30/20 22:00 Lipitor - PO HS ZAIN Calcium Carbonate 500 mg 01/30/20 10:00 01/30/20 10:13 Os-Scott 500mg - PO 500 mg DAILY ZAIN Administration Docusate Sodium 100 mg 01/30/20 14:16 01/30/20 14:28 Colace - PO 100 mg BID ZAIN Administration Ferrous Sulfate 325 mg 01/30/20 10:00 01/30/20 10:13 Feosol - PO 325 mg DAILY ZAIN Administration Guaifenesin 10 ml 01/30/20 06:23 Diabetic Tussin Dm - PO Q4H PRN COUGH Insulin Aspart 1 vial 01/30/20 07:00 01/30/20 17:52 Novolog Vial Sliding Scale - SQ 4 unit ACHS ZAIN Administration Protocol Insulin Detemir 10 units 01/30/20 22:00 Levemir Vial SQ HS ZAIN Leflunomide 10 mg 01/30/20 10:00 01/30/20 10:13 Arava - PO 10 mg DAILY ZAIN Administration Methylprednisolone 4 mg 01/30/20 10:00 01/30/20 10:13 Medrol - PO 4 mg DAILY ZAIN Administration Metoprolol Tartrate 25 mg 01/30/20 10:00 01/30/20 10:13 Lopressor - PO 25 mg DAILY ZAIN Administration Pantoprazole Sodium 20 mg 01/30/20 10:00 01/30/20 10:13 Protonix - PO 20 mg DAILY ZAIN Administration CTA: - No large Central Pulmonary artery embolism. - Mild patchy nonspecific left lower lobe infiltrate most likely due to pneumonia or aspiration pneumonia - Mild bilateral basilar peripheral predominant reticulonodular lung scarring - status post sternotomy and bypass. Calcified coronary artery arteriosclerosis - small hiatal hernia ASSESSMENT/PLAN: This is a 64 y M with a PMH of RA, T2DM, DVT, PE (2018) s/p open chest thrombectomy, s/p 1st L. toe amputation 01/05, s/p LLE angiogram 1 day ago. Iron deficiency anemia, HTN, and HLD, presents with SOB for 2hrs associated with cough, diaphoresis and lightheadedness. Labs revealed elevated WBC 13.2 with elevated PLT 452, decreased H/H 11.4/35. CTA was negative for PE, but revealed patchy infiltration of L. Lower lobe. Patient was admitted for management of Pneumonia. Left Lower Lobe Pneumonia - r/o f/u with Sputum Culture Work up for possible fibrosis related flare up - consider increasing steroids As per ER note 2017 "Patient states had seen a health education specialist with a CAT scan done in November that showed bronchiolectasis vs pulmonary fibrosis and is currently under the care of a health education specialist at [facility]" - patient does not remember having either diagnosis, will follow up about his outpatient care and try to contact his health education specialist. ID was consulted (Dr. Bolden) agrees not pneumonia Antibiotics stopped - Pulm Consulted T2DM continue home Levamir 10 units at bedtime Novolog sliding scale HTN metoprolol 25 po HLD Atorvastatin 20 mg po RA medrol 4mg daily Leflunomide 10 mg daily Foot wound - Wound care consulted Anemia - Normocytic, Normal MCV - Ordered reticulocytes count and Iron studies - Ordered FOBT - continue home iron but start colace for constipation Prophylaxis continue Eliquis 5mg BID Protonix 20 Visit type - Emergency Visit Emergency Visit: Yes ED Registration Date: 01/30/20 Care time: The patient presented to the Emergency Department on the above date and was hospitalized for further evaluation of their emergent condition. - New Patient This patient is new to me today: Yes Date on this admission: 02/03/20 - Critical Care Critical Care patient: No - Discharge Referral Referred to [facility] Med P.C.: No ATTENDING PHYSICIAN STATEMENT I saw and evaluated the patient. I reviewed the resident's note and discussed the case with the resident. I agree with the resident's findings and plan as documented. SUBJECTIVE: OBJECTIVE: ASSESSMENT AND PLAN:
[2020-01-30 19:48] LABS: BASO % 0.9 % (0-2.0); EOS % 0.5 % (0-4.5); HEMATOCRIT 33.2 % (35.4-49); HEMOGLOBIN 10.9 GM/dL (11.7-16.9); LYMPH % 10.7 % (8-40); MCH 28.5 pg (25.7-33.7); MCHC 32.7 g/dl (32.0-35.9); MEAN CELL VOLUME 87.3 fl (80-96); MEAN PLT VOLUME 7.7 fl (7.5-11.1); MONO % 6.2 % (3.8-10.2); NEUT % 81.7 % (42.8-82.8); PLATELET COUNT 413 K/MM3 (134-434); RDW 13.6 % (11.9-15.9); WHITE BLOOD COUNT 12.3 K/mm3 (4.0-10.0)
[2020-01-30] MEDS: guaiFENesin/D-M SUGAR-FREE/ACLHOL-FREE 118 ML BOTTLE PO PRN (20:04)
[2020-01-30] MEDS: ACETAMINOPHEN 325 MG TABLET (FP) PO PRN (20:04)
[2020-01-30 20:33] LABS: ALBUMIN 2.6 g/dl (3.4-5.0); BILIRUBIN,TOTAL 0.5 mg/dL (0.2-1); BLOOD UREA NITROGEN 6.8 mg/dL (7-18); CALCIUM 8.5 mg/dL (8.5-10.1); MAGNESIUM 1.8 mg/dL (1.8-2.4); TOT PROT 6.3 g/dl (6.4-8.2)
[2020-01-30 21:21] VITALS: BMI 23.0
[2020-01-30] MEDS ORDERED: INSULIN (NOVOLOG) ASPART 100 UNITS/ML 10ML VIAL ONE (21:40)
[2020-01-30] MEDS ORDERED: ATORVASTATIN CA 20 MG TABLET (FP) PO SCH (22:00)
[2020-01-30] MEDS ORDERED: INSULIN (LEVEMIR) 100 UNITS/ML UNITS SQ SCH (22:00)
[2020-01-31] MEDS ORDERED: PT OWN MED DRAWER 7, Y5N ONE ×3 (01:27→10:06)
[2020-01-31] MEDS ORDERED: PIPERACILLIN/TAZOB 3.375 GM 3.375 GM in DEXTROSE 5%-WATER - 50 ML IVPB SCH (02:00)
[2020-01-31] MEDS: ACETAMINOPHEN 325 MG TABLET (FP) PO PRN ×3 (04:51→16:31)
[2020-01-31] MEDS: guaiFENesin/D-M SUGAR-FREE/ACLHOL-FREE 118 ML BOTTLE PO PRN (04:52)
[2020-01-31] MEDS: INSULIN SLIDING SCALE (NOVOLOG) 1 VIAL SQ SCH ×2 (06:04→11:17)
[2020-01-31 07:57] LABS: HEMATOCRIT 30.4 % (35.4-49); HEMOGLOBIN 9.8 GM/dL (11.7-16.9); MCHC 32.3 g/dl (32.0-35.9); MEAN CELL VOLUME 86.5 fl (80-96); MEAN PLT VOLUME 8.3 fl (7.5-11.1); PLATELET COUNT 383 K/MM3 (134-434); RBC 3.51 M/mm3 (4.00-5.60); RDW 13.3 % (11.9-15.9); WHITE BLOOD COUNT 12.4 K/mm3 (4.0-10.0)
[2020-01-31 08:08] LABS: ALBUMIN 2.3 g/dl (3.4-5.0); BILIRUBIN,TOTAL 0.5 mg/dL (0.2-1); BLOOD UREA NITROGEN 5.9 mg/dL (7-18); CALCIUM 8.3 mg/dL (8.5-10.1); CREATININE 0.7 mg/dL (0.55-1.3); PHOSPHOROUS 2.8 mg/dL (2.5-4.9); POTASSIUM 3.5 mmol/L (3.5-5.1); TOT PROT 5.5 g/dl (6.4-8.2)
--- NOTE | 2020-01-31 09:35 | CONSULT ---
Consult - text type - Consultation Consultation Note: Podiatry Consultation: 64 year old diabetic, PVD male well known to me from wound healing service, presents to the hospital for admission with worsening SOB. Patient does have a history of chronic cough. He notes having surgery on Wednesday with Dr. Dae FARRELL angiogram, took pain medication at home and experienced worsening shortness of breath. He is s/p left hallux amputation and s/p left stump debridement with metatarsal head resection recently. Currently feeling much better, with less pain to the foot and better breathing. Afebrile, VSS. Past Medical History: DVT, PE(2018) s/p open chest thrombectomy, s/p 1st L. toe amputation, T2DM, Iron deficiency anemia, HTN, and HLD Meds: noted in chart ALL: enalapril, vancomycin JACLYN: L foot: pedal pulses nonpalpable, TG wnl, CFT brisk to all toes. There is a dry eschar noted to the dorsal first ray, no purulent drainage, no fluctuance, no streaking ascending cellulitis, no signs of active infection. Mild tenderness to palpation. No ischemic changes to the remainder of the foot. Imp: 64 year old diabetic PVD male s/p left hallux amputation and s/p left first metatarsal partial resection with stump debridement 1. Abx per ID 2. Medical management 3. Continue local care with betadine to dry eschar changed 3x/week. Patient has home nursing services on the case pre-admission and would reinstate them upon discharge. 4. He will be followed closely in wound healing center by myself and Dr. Pearl. Thank you for the courtesy of this consultation. Brittni Lemus DPM
[2020-01-31] MEDS ORDERED: LINEZOLID 600 MG PREMIX BAG 600 MG/300 ML BAG IVPB SCH (10:00)
[2020-01-31] MEDS: FERROUS SO4 325 MG TABLET (FP) PO SCH (10:07)
[2020-01-31] MEDS: methylPREDNISolone 4 MG TABLET PO SCH (10:07)
[2020-01-31] MEDS: LEFLUNOMIDE 10 MG TABLET PO SCH (10:07)
[2020-01-31] MEDS: DOCUSATE SODIUM 100 MG CAPSULE (FP) PO SCH (10:07)
[2020-01-31] MEDS: PANTOPRAZOLE 20 MG TABLET PO SCH (10:07)
[2020-01-31] MEDS: APIXABAN 5 MG TABLET PO SCH (10:07)
[2020-01-31] MEDS: CALCIUM (OYSTER SHELL) 500 MG TABLET (FP) PO SCH (10:07)
[2020-01-31] MEDS: METOPROLOL TARTRATE 25 MG TABLET (FP) PO SCH (10:07)
--- NOTE | 2020-01-31 12:00 | CONSULT ---
- Consultation REQUESTING PROVIDER: CONSULT REQUEST: We have been asked to surgically evaluate this patient for (left foot gangrene s/p angio 01/28 PCP:Kathy Fitzpatrick HISTORY OF PRESENT ILLNESS: 64 y/o M w/ PMHx DVT, PE(2018) s/p thrombectomy, T2DM, Iron deficiency anemia, HTN, and HLD, a/w SOB for 2hrs. Pt is s/p outpt angio on 01/[address] Baig for dry gangrene of L 1st metacarpal after toe amp with podiatry. States he is doing "okay" after surgery. His foot does not feel much different, he is hopeful angioplasty will help his current wound heal. Denies fevers/chills, n/v/d at home, has some groin tenderness from the angio which is improving. Of note, pt was previously admitted from 01/07-01-14 , for left toe infections found to have osteomyelitis and bone bx positive for GBS/MRSA. Pt was treated with amp by DPM and Vanco/Zosyn. PMHx: as above PSHx: as above Home Medications Medication Instructions Recorded Calcium Carbonate [Oysco-500] 500 mg PO DAILY 07/08/19 Ferrous Sulfate 1 tab PO DAILY 10/09/19 Apixaban [Eliquis -] 5 mg PO BID 01/30/20 Atorvastatin Ca [Lipitor] 20 mg PO HS 01/30/20 Insulin Glargine,Hum.rec.anlog 10 unit SQ HS 01/30/20 [Basaglar Kwikpen U-100] Insulin Lispro [Admelog] 10 unit SQ AC 01/30/20 Leflunomide 10 mg PO DAILY 01/30/20 Methylprednisolone [Medrol -] 4 mg PO DAILY 01/30/20 Metoprolol Tartrate 25 mg PO DAILY 01/30/20 Omeprazole 20 mg PO DAILY 01/30/20 Telmisartan 20 mg PO DAILY 01/30/20 metFORMIN HCL [Metformin ER 1,000 mg PO DAILY 01/30/20 Osmotic] Allergies Allergy/AdvReac Type Severity Reaction Status Date / Time enalapril Allergy Severe Cough Verified 01/29/20 23:57 vancomycin AdvReac Mild Itching Verified 01/29/20 23:57 REVIEW OF SYSTEMS: CONSTITUTIONAL: Absent: fever, chills CARDIOVASCULAR: Absent: chest pain RESPIRATORY: + cough, shortness of breath GASTROINTESTINAL: Absent: abdominal pain PHYSICAL EXAM: GENERAL: Awake, alert, and fully oriented, in no acute distress. HEAD: Normal with no signs of trauma. LOWER EXTREMITIES: R foot with no lesions/ulcers, palpable dp pulse. L foot with dressing in place, + eschar over 1st toe amp site extending approx 3cm onto the forefoot. Eschar stable, no purulent drainage, + foul odor. Pedal pulses not appreciate (no doppler available). NEUROLOGICAL: Normal speech, gait not observed. PSYCH: Cooperative. Good eye contact. Appropriate mood and affect. Vital Signs Temperature 98.8 F 01/31/20 09:31 Pulse Rate 84 01/31/20 09:31 Respiratory Rate 20 01/31/20 09:31 Blood Pressure 129/67 01/31/20 09:31 O2 Sat by Pulse Oximetry (%) 95 01/30/20 21:25 Lab Results WBC 12.4 K/mm3 (4.0-10.0) H 01/31/20 07:15 RBC 3.51 M/mm3 (4.00-5.60) L 01/31/20 07:15 Hgb 9.8 GM/dL (11.7-16.9) L 01/31/20 07:15 Hct 30.4 % (35.4-49) L 01/31/20 07:15 MCV 86.5 fl (80-96) 01/31/20 07:15 MCHC 32.3 g/dl (32.0-35.9) 01/31/20 07:15 RDW 13.3 % (11.9-15.9) 01/31/20 07:15 Plt Count 383 K/MM3 (134-434) 01/31/20 07:15 Sodium 141 mmol/L (136-145) 01/31/20 07:15 Potassium 3.5 mmol/L (3.5-5.1) 01/31/20 07:15 Chloride 108 mmol/L (98-107) H 01/31/20 07:15 Carbon Dioxide 27 mmol/L (21-32) 01/31/20 07:15 Anion Gap 6 MMOL/L (8-16) L 01/31/20 07:15 BUN 5.9 mg/dL (7-18) L 01/31/20 07:15 Creatinine 0.7 mg/dL (0.55-1.3) 01/31/20 07:15 Random Glucose 97 mg/dL (74-106) 01/31/20 07:15 Calcium 8.3 mg/dL (8.5-10.1) L 01/31/20 07:15 A/P: 64 y/o M w/ PMHx DVT, PE(2018) s/p thrombectomy, T2DM, Iron deficiency anemia, HTN, and HLD, a/w SOB for 2hrs. Pt is s/p outpt angio on 01/[address] Baig for dry gangrene of L 1st metacarpal after toe amp with podiatry. Foot stable per notes and pt -Continue wound care per DPM -Continue Eliquis and statin -OOB as tolerated -Pt should f/u with Dr Baig as previously scheduled d/w attending DR Baig
[2020-01-31] MEDS ORDERED: ALBUTEROL SO4 2.5/IPRATROPIUM 0.5 INH SOL 3 ML VIAL.NEB. NEB PRN (13:45)
--- NOTE | 2020-01-31 13:55 | PN ---
Progress Note, Physician History of Present Illness: PULMONARY ALERT,FEELING BETTER,LESS DYSPNEIC,LESS COUGH - Current Medication List Current Medications: Active Medications Acetaminophen (Tylenol -) 650 mg PO Q6H PRN PRN Reason: PAIN LEVEL 4 - 6 Last Admin: 01/31/20 10:07 Dose: 650 mg Documented by: Albuterol/Ipratropium (Duoneb -) 1 amp NEB Q6H PRN PRN Reason: SHORTNESS OF BREATH Albuterol/Ipratropium (Duoneb -) 1 amp NEB ONCE ONE Stop: 01/31/20 13:47 Apixaban (Eliquis -) 5 mg PO BID [facility] Last Admin: 01/31/20 10:07 Dose: 5 mg Documented by: Atorvastatin Calcium (Lipitor -) 20 mg PO [facility] Last Admin: 01/30/20 22:31 Dose: 20 mg Documented by: Calcium Carbonate (Os-Scott 500mg -) 500 mg PO DAILY [facility] Last Admin: 01/31/20 10:07 Dose: 500 mg Documented by: Docusate Sodium (Colace -) 100 mg PO BID [facility] Last Admin: 01/31/20 10:07 Dose: 100 mg Documented by: Ferrous Sulfate (Feosol -) 325 mg PO DAILY [facility] Last Admin: 01/31/20 10:07 Dose: 325 mg Documented by: Guaifenesin (Diabetic Tussin Dm -) 10 ml PO Q4H PRN PRN Reason: COUGH Last Admin: 01/31/20 04:52 Dose: 10 ml Documented by: Insulin Aspart (Novolog Vial Sliding Scale -) 1 vial SQ [facility]; Protocol Last Admin: 01/31/20 11:17 Dose: Not Given Documented by: Insulin Detemir (Levemir Vial) 10 units SQ [facility] Last Admin: 01/30/20 22:34 Dose: 10 units Documented by: Leflunomide (Arava -) 10 mg PO DAILY [facility] Last Admin: 01/31/20 10:07 Dose: 10 mg Documented by: Methylprednisolone (Medrol -) 4 mg PO DAILY [facility] Last Admin: 01/31/20 10:07 Dose: 4 mg Documented by: Metoprolol Tartrate (Lopressor -) 25 mg PO DAILY [facility] Last Admin: 01/31/20 10:07 Dose: 25 mg Documented by: Pantoprazole Sodium (Protonix -) 20 mg PO DAILY [facility] Last Admin: 01/31/20 10:07 Dose: 20 mg Documented by: - Objective Vital Signs: Vital Signs Temperature 98.8 F 01/31/20 09:31 Pulse Rate 84 01/31/20 09:31 Respiratory Rate 20 01/31/20 09:31 Blood Pressure 129/67 01/31/20 09:31 O2 Sat by Pulse Oximetry (%) 96 01/31/20 10:00 Constitutional: Yes: Well Nourished, Calm Eyes: Yes: WNL HENT: Yes: WNL Neck: Yes: WNL Cardiovascular: Yes: Regular Rate and Rhythm, S1, S2 Respiratory: Yes: Rales (BILATERAL CRACKLES 1/3 UP) Gastrointestinal: Yes: Normal Bowel Sounds, Soft Extremities: Yes: WNL Edema: No Labs: CBC, BMP 01/31/20 07:15 01/31/20 07:15 - ....Imaging Cat Scan: Report Reviewed, Image Reviewed Problem List - Problems (1) Shortness of breath Code(s): R06.02 - SHORTNESS OF BREATH (2) Hypercholesterolemia Code(s): E78.00 - PURE HYPERCHOLESTEROLEMIA, UNSPECIFIED (3) Hypertension Code(s): I10 - ESSENTIAL (PRIMARY) HYPERTENSION (4) Recurrent pulmonary embolism Code(s): I26.99 - OTHER PULMONARY EMBOLISM WITHOUT ACUTE COR PULMONALE (5) Rheumatoid arthritis Code(s): M06.9 - RHEUMATOID ARTHRITIS, UNSPECIFIED (6) Type 2 diabetes mellitus Code(s): E11.9 - TYPE 2 DIABETES MELLITUS WITHOUT COMPLICATIONS Assessment/Plan IMP H/O PE S/P OHS,THROMBECTOMY H/O DVT LIKELY ILD BRONCHIECTASIS HTN HLD DM RA RUL NODULE PLAN O2 NEEDED INHALED BRONCHODILATORS MEDROL PFTS F/U CHEST CT OUTPATIENT DR PLASCENCIA
[2020-01-31] MEDS ORDERED: ALBUTEROL SO4 2.5/IPRATROPIUM 0.5 INH SOL 3 ML VIAL.NEB. NEB ONE (14:00)
--- NOTE | 2020-01-31 14:43 | PN ---
Teaching Attending Note Name of Resident: Zahraa Webster ATTENDING PHYSICIAN STATEMENT I saw and evaluated the patient. I reviewed the resident's note and discussed the case with the resident. I agree with the resident's findings and plan as documented. SUBJECTIVE: No fever or chills. denies SOB. has cough, no production of sputum. No N/V . has chronic pain in L foot OBJECTIVE: NAD, awake, alert. cooperative , CV: RRR, no MRG , NO JVD Lungs: bibasilar crackles , no wheezes. Abd: soft, NT, ND, NL BS Ext: No edema or erythema on legs. L foot with s/p big toe amputation with a dry eschar at site of big toe . DP 1+ on L , 2+ on R. ASSESSMENT AND PLAN: 64 y/o man with h/o DVT, PE, HLP, s/p sternotomy and thrmbectomy, HTN, s/p L big toe gangrene and amputation, iron def anemia, RA , s/p LLE angiogram and L posterior tibial artery angioplasty and other medical problems who presented with SOB and cough 1- Shortness of breath, and cough. unclear etiology. possible ILD form RA . case was d/w Dr. Erickson. - will have him f/u as out pt with his pulm for PFTS - add albuterol inhaler and Symbicort after dc - cough is chronic , and this wa confirmed with Allan Benitez who follows him chronically 2- H/o PE: - cont home eliquis 3- H/o DM: cont levemir and SSI 4- H/o RA . cont chronic prednisolone cont leflunamide 5- PVD: s/p angioplasty. cont to follow up wiwth Dr. cabrera and dr. Lemus - cont statin dc home today
[2020-01-31 15:40] VITALS: BP 118/57; PULSE 85; TEMP 98.5
--- NOTE | 2020-01-31 21:19 | DS ---
Physical Exam: SUBJECTIVE: Patient seen and examined bedside. In no acute distress, no chest pain or SOB. No acute events overnight. OBJECTIVE: Vital Signs Period Temp Pulse Resp BP Sys/Dawson Pulse Ox Last 24 Hr 98.2 F-98.8 F 73-101 18-20 118-135/57-77 95-96 PHYSICAL EXAM GENERAL: The patient is awake, alert, and fully oriented, in no acute distress. HEAD: Normal with no signs of trauma. NECK: Trachea midline, full range of motion, supple, no JVD LUNGS: Mild LL crackles BL, improved since yesterday HEART: Regular rate and rhythm, S1, S2 without murmur, rub or gallop. ABDOMEN: Soft, nontender, nondistended, normoactive bowel sounds, no guarding EXTREMITIES:warm, well-perfused, no edema, right side inguinal incision site from cath procedure, looks clean, no discharge. Patient left foot first digit amputation. LABS 01/30/20 01/30/20 01/30/20 01:30 01:30 07:10 WBC 13.2 H RBC 3.97 L Hgb 11.4 L Hct 35.0 L MCV 88.2 MCH 28.6 MCHC 32.4 RDW 13.7 Plt Count 452 H D MPV 8.3 D Absolute Neuts (auto) Neutrophils % Lymphocytes % Monocytes % Eosinophils % Basophils % Nucleated RBC % Sodium 140 Potassium 4.2 Chloride 107 Carbon Dioxide 24 Anion Gap 9 BUN 6.0 L Creatinine 0.8 Est GFR (CKD-EPI)AfAm 110.96 Est GFR (CKD-EPI)NonAf 95.74 POC Glucometer Random Glucose 141 H Calcium 9.0 Phosphorus Magnesium Iron TIBC Iron Saturation Unsaturated IBC Total Bilirubin 0.4 AST 24 ALT 15 Alkaline Phosphatase 62 Creatine Kinase 60 Troponin I < 0.02 Total Protein 6.5 Albumin 2.7 L Urine Color Urine Appearance Urine pH Ur Specific Milton Urine Protein Urine Glucose (UA) Urine Ketones Urine Blood Urine Nitrite Urine Bilirubin Urine Urobilinogen Ur Leukocyte Esterase U Random Total Protein Urine Creatinine Protein/Creatinin Ratio COVID-19 ([facility]) Not detected 01/30/20 01/30/20 01/30/20 07:15 07:15 07:53 WBC RBC Hgb Hct MCV MCH MCHC RDW Plt Count MPV Absolute Neuts (auto) Neutrophils % Lymphocytes % Monocytes % Eosinophils % Basophils % Nucleated RBC % Sodium Potassium Chloride Carbon Dioxide Anion Gap BUN Creatinine Est GFR (CKD-EPI)AfAm Est GFR (CKD-EPI)NonAf POC Glucometer 150 Random Glucose Calcium Phosphorus Magnesium Iron TIBC Iron Saturation Unsaturated IBC Total Bilirubin AST ALT Alkaline Phosphatase Creatine Kinase Troponin I Total Protein Albumin Urine Color Yellow Urine Appearance Clear Urine pH 7.5 Ur Specific Milton 1.035 Urine Protein Negative Urine Glucose (UA) Negative Urine Ketones Negative Urine Blood Negative Urine Nitrite Negative Urine Bilirubin Negative Urine Urobilinogen 0.2 Ur Leukocyte Esterase Negative U Random Total Protein 16.0 H Urine Creatinine 58.0 L Protein/Creatinin Ratio 0.3 COVID-19 ([facility]) 01/30/20 01/30/20 01/30/20 11:54 17:39 19:30 WBC RBC Hgb Hct MCV MCH MCHC RDW Plt Count MPV Absolute Neuts (auto) Neutrophils % Lymphocytes % Monocytes % Eosinophils % Basophils % Nucleated RBC % Sodium 137 Potassium 4.0 Chloride 104 Carbon Dioxide 24 Anion Gap 9 BUN 6.8 L Creatinine 1.0 Est GFR (CKD-EPI)AfAm 93.08 Est GFR (CKD-EPI)NonAf 80.31 POC Glucometer 194 221 Random Glucose 229 H Calcium 8.5 Phosphorus 3.0 Magnesium 1.8 Iron 59 TIBC 243 L Iron Saturation 24 Unsaturated IBC 184 L Total Bilirubin 0.5 AST 15 ALT 13 Alkaline Phosphatase 60 Creatine Kinase Troponin I Total Protein 6.3 L Albumin 2.6 L Urine Color Urine Appearance Urine pH Ur Specific Milton Urine Protein Urine Glucose (UA) Urine Ketones Urine Blood Urine Nitrite Urine Bilirubin Urine Urobilinogen Ur Leukocyte Esterase U Random Total Protein Urine Creatinine Protein/Creatinin Ratio COVID-19 ([facility]) 01/30/20 01/30/20 01/31/20 19:30 22:30 06:02 WBC 12.3 H RBC 3.80 L Hgb 10.9 L Hct 33.2 L MCV 87.3 MCH 28.5 MCHC 32.7 RDW 13.6 Plt Count 413 MPV 7.7 Absolute Neuts (auto) 10.0 H Neutrophils % 81.7 Lymphocytes % 10.7 D Monocytes % 6.2 Eosinophils % 0.5 Basophils % 0.9 Nucleated RBC % 0 Sodium Potassium Chloride Carbon Dioxide Anion Gap BUN Creatinine Est GFR (CKD-EPI)AfAm Est GFR (CKD-EPI)NonAf POC Glucometer 187 101 Random Glucose Calcium Phosphorus Magnesium Iron TIBC Iron Saturation Unsaturated IBC Total Bilirubin AST ALT Alkaline Phosphatase Creatine Kinase Troponin I Total Protein Albumin Urine Color Urine Appearance Urine pH Ur Specific Milton Urine Protein Urine Glucose (UA) Urine Ketones Urine Blood Urine Nitrite Urine Bilirubin Urine Urobilinogen Ur Leukocyte Esterase U Random Total Protein Urine Creatinine Protein/Creatinin Ratio COVID-19 ([facility]) 01/31/20 01/31/20 01/31/20 07:15 07:15 11:14 WBC 12.4 H RBC 3.51 L Hgb 9.8 L Hct 30.4 L MCV 86.5 MCH 28.0 MCHC 32.3 RDW 13.3 Plt Count 383 MPV 8.3 Absolute Neuts (auto) Neutrophils % Lymphocytes % Monocytes % Eosinophils % Basophils % Nucleated RBC % Sodium 141 Potassium 3.5 Chloride 108 H Carbon Dioxide 27 Anion Gap 6 L BUN 5.9 L Creatinine 0.7 Est GFR (CKD-EPI)AfAm 117.22 Est GFR (CKD-EPI)NonAf 101.14 POC Glucometer 139 Random Glucose 97 Calcium 8.3 L Phosphorus 2.8 Magnesium 2.0 Iron TIBC Iron Saturation Unsaturated IBC Total Bilirubin 0.5 AST 12 L ALT 10 L Alkaline Phosphatase 51 Creatine Kinase Troponin I Total Protein 5.5 L Albumin 2.3 L Urine Color Urine Appearance Urine pH Ur Specific Milton Urine Protein Urine Glucose (UA) Urine Ketones Urine Blood Urine Nitrite Urine Bilirubin Urine Urobilinogen Ur Leukocyte Esterase U Random Total Protein Urine Creatinine Protein/Creatinin Ratio COVID-19 ([facility]) HOSPITAL COURSE: Patient presented to the ED, S/P 1 day after LLE angio, with increase SOB, productive cough and lightheadedness. His white count was 13.2 and the original impression of the CXR was possible pneumonia. Patient was admitted for management of Pneumonia. CTA was performed and was negative for PE, but revealed patchy infiltration of LLL, and moderate interstitial lung disease most marked at the bases, as well as a right lung nodule. Due to extensive history of chronic cough, PE, and mild SOB, an acute exacerbation of a chronic lung disease was concluded and antibiotics were stopped. Patient remained comfortable without desaturating while on room air. Pulmonology was consulted and agreed on further outpatient workup for possible bronchiectasis and interstitial lung disease. He was discharged with symbicort and an albuterol inhaler. He was urged to follow up with him own cord splicer or make an appointment with [facility] within 2 weeks of being discharged. Date of Admission:01/30/20 Date of Discharge: 01/31/20 Minutes to complete discharge: 30 Discharge Summary Problems reviewed: Yes Reason For Visit: PNEUMONIA Condition: Improved - Instructions Diet, Activity, Other Instructions: Visit: You presented to the hospital a day after your left lower leg angiogram with increased shortness of breath. You might have interstitial lung disease, we are starting you on a new home inhaler called symbicort that you will take everyday twice a day , You will also be leaving with an inhaler to use in times when you experience worsening shortness of breath like you did before coming to the emergency room. This rescue inhaler is called albuterol. Medications: Symbicort inhaler - 1 puff twice a day Albuterol inhaler - 1 to 2 puffs every 6 hours when needed for increased shortness of breath Follow up: Please go see your cord splicer if you have one withing 1 week of leaving the hospital. You need further workup and management of you chronic lung disease. If you don't have a pulmonologst please make and appointment with Dr. Leiva who saw you in the hospital. Please also follow up with your primary care physician within 2 weeks of leaving the hospital. Precautions Please come back to the emergency room if you experience any shortness of breath that does not resolve with inhalers or persists despite using your inhalers. Please also come back if you experience any fever, worsening cough and/or chest pain. Referrals: Rod Boss [Primary Care Provider] - Ralph Leiva MD [Staff Physician] - Disposition: HOME - Home Medications Comprehensive Discharge Medication List: Ambulatory Orders Calcium Carbonate [Oysco-500] 500 mg PO DAILY 07/08/19 Ferrous Sulfate 1 tab PO DAILY 10/09/19 Apixaban [Eliquis -] 5 mg PO BID 01/30/20 Atorvastatin Ca [Lipitor] 20 mg PO HS 01/30/20 Insulin Glargine,Hum.rec.anlog [Basaglar Kwikpen U-100] 10 unit SQ HS 01/30/20 Insulin Lispro [Admelog] 10 unit SQ AC 01/30/20 Leflunomide 10 mg PO DAILY 01/30/20 Methylprednisolone [Medrol -] 4 mg PO DAILY 01/30/20 Metoprolol Tartrate 25 mg PO DAILY 01/30/20 Omeprazole 20 mg PO DAILY 01/30/20 Telmisartan 20 mg PO DAILY 01/30/20 metFORMIN HCL [Metformin ER Osmotic] 1,000 mg PO DAILY 01/30/20 Albuterol Sulfate Inhaler - [Ventolin HFA Inhaler -] 1 - 2 inh PO Q4H #1 inhaler 01/31/20 Budesonide/Formeterol Fumarate [SYMBICORT 80/4.5mcg -] 1 inh PO BID #1 cannister 01/31/20 This patient is new to me today: No Emergency Visit: Yes ED Registration Date: 01/30/20 Care time: The patient presented to the Emergency Department on the above date and was hospitalized for further evaluation of their emergent condition. Critical Care patient: No - Discharge Referral Referred to [facility] Med P.C.: No ATTENDING PHYSICIAN STATEMENT I saw and evaluated the patient. I reviewed the resident's note and discussed the case with the resident. I agree with the resident's findings and plan as documented. SUBJECTIVE: OBJECTIVE: ASSESSMENT AND PLAN:
--- NOTE | 2020-02-01 11:24 | CONS ---
DATE OF CONSULTATION: DATE OF DICTATION: 02/01/2020 CHIEF COMPLAINT/HISTORY OF PRESENT ILLNESS: This is a 64-year-old man with past medical history of peripheral vascular disease status post recent amputation of the left big toe. He had a ray amputation on January 08. He is status post angiogram, angioplasty of the same leg on January 28. He was admitted with cough. Concern was that his anticoagulants had been on hold, concern for PE. He noted he had cough and shortness of breath laying flat but was comfortable in a chair. Chest CT was done in the ER that showed mild ILD, no acute infiltrates. He had no fevers. I am asked to see him for possible pneumonia. PAST MEDICAL HISTORY: Notable for DVT, PE, status post open chest thrombectomy. He has a history of first left toe amputation done in December. He has type 2 diabetes, anemia, hypertension, hyperlipidemia, and peripheral vascular disease. PAST SURGICAL HISTORY: Notable for the amputation. He has had the open thrombectomy as well and the recent angiogram. SOCIAL HISTORY: No history of cigarette, alcohol, or substance use. Originally from [facility]. He has been in this country for many years. No recent travel. ALLERGIES: He is allergic to ENALAPRIL, which causes cough, and VANCOMYCIN, which causes itching. MEDICATIONS: Medications at home include lisinopril, Eliquis, leflunomide, atorvastatin, ferrous sulfate, insulin, metformin, metoprolol, omeprazole, and Medrol. REVIEW OF SYSTEMS: As per HPI. There is no nausea, vomiting, diarrhea. His cough and shortness of breath are much improved this morning. PHYSICAL EXAMINATION: General: He is awake and alert. Vital Signs: Temperature is 98.4. Pulse is 73. Blood pressure 135/77. Respiratory rate is 18. He is saturating 96% on room air. HEENT: He is normocephalic. His eyes are anicteric. Neck: Supple. Lungs: Clear to auscultation. Heart: Regular rate and rhythm. Abdomen: Soft, nontender. Extremities: Without edema. He has no drainage or erythema at the amputation site. Angiogram access sites are without any erythema as well. LABORATORY: Notable for a white count of 12.3, hemoglobin 10.9. Platelets are 413. Chemistries: BUN 6.8 and creatinine 1. LFTs are normal. His urinalysis is negative, and his COVID serology is negative, PCR. Cultures are sent and pending. Chest CTA shows no acute process. SUMMARY: This is a 64-year-old man who I am asked to see with shortness of breath, peripheral vascular disease status post amputation of his left toe in December. He has no signs of pneumonia. The amputation site is without any signs of active infection. Angiogram sites are clean. I would follow up his cultures and observe him off antibiotics at this time. PAL NGUYEN M.D. [id number]
== END 2020-01-31 16:42 | disposition home or self-care (01) | DRG 142 ==
LOC: JER 23:42 → JERBED 01-30 04:23 → J8W 01-30 20:11
PROVIDERS: ADMIT Internal Medicine; ATTEND Internal Medicine
DX: J84.9 Interstitial pulmonary disease, unspecified (principal); I10 Essential (primary) hypertension; E78.5 Hyperlipidemia, unspecified; D50.9 Iron deficiency anemia, unspecified; K21.9 Gastro-esophageal reflux disease without esophagitis; K44.9 Diaphragmatic hernia without obstruction or gangrene; E78.00 Pure hypercholesterolemia, unspecified; Z68.23 Body mass index [BMI] 23.0-23.9, adult; M06.9 Rheumatoid arthritis, unspecified; E11.69 Type 2 diabetes mellitus with other specified complication; L97.509 Non-pressure chronic ulcer of other part of unspecified foot with unspecified severity; E88.09 Other disorders of plasma-protein metabolism, not elsewhere classified; E46 Unspecified protein-calorie malnutrition; R63.0 Anorexia; E11.621 Type 2 diabetes mellitus with foot ulcer; J47.9 Bronchiectasis, uncomplicated
CPT/HCPCS: 36415; 71045-TC-FY; 71275-TC; 76000-TC-FY; 80053; 81003; 82550; 82570; 82962; 83540; 83550; 83735; 84100; 84156; 84484; 85025; 85027; 87040; 87070; 87186; 87205; 87899; 93005; 93010; 94640; 99285-25; U0003

== ENCOUNTER 2020-03-14 08:00 | Inpatient (IN) | payer OTHER ==
[2020-03-15] MEDS ORDERED: LIDOCAINE HCL 1%, 10 MG/ML (20ML VIAL) ONE ×2 (08:07→08:09)
--- NOTE | 2020-03-15 08:13 | HP ---
Admitting History and Physical - Admission Chief Complaint: Left foot gangrene History Source: Patient Limitations to Obtaining History: No Limitations - Past Medical History Pulmonary: Yes: Bronchitis, Pneumonia, Pulmonary Embolus. No: Asthma, Cancer, COPD, O2 Dependent, Previously Intubated, Pulmonary Fibrosis, Sleep Apnea Heme/Onc: Yes: Other (Recurrent pulmonary embolism) Musculoskeletal: Yes: Other (Rheumatoid arthritis) Rheumatology: Yes: Rheumatoid Arthritis Endocrine: Yes: Diabetes Insipidus - Smoking History Smoking history: Never smoked Have you smoked in the past 12 months: No - Alcohol/Substance Use Hx Alcohol Use: No - Social History History of Recent Travel: No Home Medications - Allergies Allergies/Adverse Reactions: Allergies Allergy/AdvReac Type Severity Reaction Status Date / Time enalapril Allergy Severe Cough Verified 03/15/20 06:56 vancomycin AdvReac Mild Itching Verified 03/15/20 06:56 - Home Medications Home Medications: Ambulatory Orders Calcium Carbonate [Oysco-500] 500 mg PO DAILY 07/08/19 Ferrous Sulfate 1 tab PO BID 10/09/19 Apixaban [Eliquis -] 5 mg PO BID 01/30/20 Atorvastatin Ca [Lipitor] 20 mg PO HS 01/30/20 Insulin Glargine,Hum.rec.anlog [Basaglar Kwikpen U-100] 10 unit SQ HS 01/30/20 Insulin Lispro [Admelog] 10 unit SQ AC 01/30/20 Leflunomide 10 mg PO DAILY 01/30/20 Methylprednisolone [Medrol -] 4 mg PO DAILY 01/30/20 Metoprolol Tartrate 25 mg PO DAILY 01/30/20 Omeprazole 20 mg PO DAILY 01/30/20 Telmisartan 20 mg PO DAILY 01/30/20 metFORMIN HCL [Metformin ER Osmotic] 1,000 mg PO DAILY 01/30/20 Albuterol Sulfate Inhaler - [Ventolin HFA Inhaler -] 1 - 2 inh PO Q4H #1 inhaler 01/31/20 Multivitamin [Multiple Vitamins] 1 tab PO DAILY 02/02/20 Vitamin C 1 tab PO DAILY 02/02/20 Zinc 1 tab PO DAILY 02/02/20 Collagenase Clostridium Hist. [Santyl] 1 applic TP DAILY #90 oint...g. 02/16/20 Acetaminophen [Tylenol -] 500 mg PO Q8H 03/13/20 Cetirizine HCl 10 mg PO DAILY 03/13/20 Folic Acid 1 mg PO DAILY 03/13/20 Family Medical History Family Hx Cancer: Father (Diabetes mellitus) Family Hx Respiratory Disorders: Mother (Asthma) Review of Systems - Review of Systems Constitutional: reports: No Symptoms Eyes: reports: No Symptoms HENT: reports: No Symptoms Neck: reports: No Symptoms Cardiovascular: reports: No Symptoms Respiratory: reports: No Symptoms Gastrointestinal: reports: No Symptoms Genitourinary: reports: No Symptoms Breasts: reports: No Symptoms Reported Musculoskeletal: reports: No Symptoms Integumentary: reports: No Symptoms Neurological: reports: No Symptoms Endocrine: reports: No Symptoms Hematology/Lymphatic: reports: No Symptoms Psychiatric: reports: No Symptoms Physical Examination Vital Signs: Vital Signs Temperature 97.7 F 03/15/20 06:53 Pulse Rate 86 03/15/20 06:53 Respiratory Rate 03/15/20 06:53 Blood Pressure 123/80 03/15/20 06:53 O2 Sat by Pulse Oximetry (%) 99 03/15/20 06:53 Constitutional: Yes: Well Nourished, No Distress, Calm Eyes: Yes: WNL, Conjunctiva Clear, EOM Intact HENT: Yes: WNL, Atraumatic, Normocephalic Neck: Yes: WNL, Supple, Trachea Midline Cardiovascular: Yes: WNL, Regular Rate and Rhythm Respiratory: Yes: WNL, Regular, CTA Bilaterally Gastrointestinal: Yes: WNL, Normal Bowel Sounds Musculoskeletal: Yes: WNL Extremities: Yes: WNL Edema: No Peripheral Pulses WNL: No Integumentary: Yes: WNL Neurological: Yes: WNL, Alert, Oriented ...Motor Strength: WNL Psychiatric: Yes: WNL Problem List - Problems (1) Gangrene of toe of left foot Assessment/Plan: For TMA of left foot Torres Pearl DO Problems reviewed: Yes Code(s): I96 - GANGRENE, NOT ELSEWHERE CLASSIFIED
[2020-03-15] MEDS ORDERED: MIDAZOLAM HCL 2 MG/2 ML SINGLE DOSE VIAL ONE ×2 (08:27)
[2020-03-15] MEDS ORDERED: ceFAZolin SODIUM 1 GM VIAL ONE ×2 (08:35)
[2020-03-15] MEDS ORDERED: ceFAZolin SODIUM 1 GM VIAL IVPB ONE (08:54)
[2020-03-15] MEDS ORDERED: LIDOCAINE HCL 1%, 10 MG/ML (20ML VIAL) INF ONE (09:22)
[2020-03-15] MEDS ORDERED: BUPIVACAINE HCL/PF 0.5% (5 MG/ML) 30 ML VIAL IJ ONE (09:24)
--- NOTE | 2020-03-15 09:29 | OP ---
Operative Note - Note: Operative Date: 03/15/20 Pre-Operative Diagnosis: Left foot gangrene Operation: Left TMA Post-Operative Diagnosis: Same as Pre-op Surgeon: Torres Pearl Policy Checker: Santiago Lemus Anesthesia: MAC Estimated Blood Loss (mls): 50 Operative Report Dictated: Yes
[2020-03-15] MEDS ORDERED: morphine CARPU-JECT 4 MG/1 ML DISP.SYRIN IVPUSH PRN (09:37)
[2020-03-15] MEDS ORDERED: ONDANSETRON 4 MG/2 ML VIAL IVPUSH PRN (09:41)
[2020-03-15] MEDS ORDERED: INSULIN LISPRO 10 UNIT SQ SCH (09:45)
[2020-03-15] MEDS ORDERED: ALBUTEROL SO4 HFA INHALER IH SCH (09:45)
[2020-03-15] MEDS ORDERED: methylPREDNISolone 4 MG TABLET PO SCH (10:00)
[2020-03-15] MEDS ORDERED: PATIENT'S OWN MEDICATION (NON-FORMULARY) (Telmisartan [Telmisartan] 20 MG) PO SCH (10:00)
[2020-03-15] MEDS ORDERED: APIXABAN 5 MG TABLET PO SCH (10:00)
[2020-03-15] MEDS ORDERED: PATIENT'S OWN MEDICATION (NON-FORMULARY) (Metformin Hcl [Metformin Er Osmotic] 1,000 MG) PO SCH (10:00)
[2020-03-15] MEDS ORDERED: LEFLUNOMIDE 10 MG TABLET PO SCH (10:00)
[2020-03-15] MEDS ORDERED: CALCIUM (OYSTER SHELL) 500 MG TABLET (FP) PO SCH (10:00)
[2020-03-15] MEDS ORDERED: PATIENT'S OWN MEDICATION (NON-FORMULARY) (Omeprazole [Omeprazole] 20 MG) PO SCH (10:00)
[2020-03-15] MEDS ORDERED: VITAMIN C PO SCH ×2 (10:00)
[2020-03-15] MEDS ORDERED: METOPROLOL TARTRATE 25 MG TABLET (FP) PO SCH (10:00)
[2020-03-15] MEDS ORDERED: PATIENT'S OWN MEDICATION (NON-FORMULARY) (Cetirizine Hcl [Cetirizine Hcl] 10 MG) PO SCH (10:00)
[2020-03-15] MEDS ORDERED: ZINC PO SCH ×2 (10:00)
[2020-03-15] MEDS ORDERED: ALBUTEROL SO4 HFA INHALER IH PRN (13:45)
[2020-03-15] MEDS: APIXABAN 5 MG TABLET PO SCH ×2 (18:20→21:42)
[2020-03-15] MEDS: methylPREDNISolone 4 MG TABLET PO SCH (18:28)
[2020-03-15] MEDS: LOSARTAN POTASSIUM 25 MG TABLET PO SCH (18:28)
[2020-03-15] MEDS: LORATADINE 10 MG TABLET PO SCH (18:28)
[2020-03-15] MEDS: LEFLUNOMIDE 10 MG TABLET PO SCH (18:28)
[2020-03-15] MEDS: METOPROLOL TARTRATE 25 MG TABLET (FP) PO SCH (18:28)
[2020-03-15] MEDS: PANTOPRAZOLE 20 MG TABLET PO SCH (18:29)
[2020-03-15] MEDS: CALCIUM (OYSTER SHELL) 500 MG TABLET (FP) PO SCH (18:29)
[2020-03-15] MEDS: oxyCODONE HCL 5 MG TABLET PO PRN (18:40)
[2020-03-15] MEDS: INSULIN (LEVEMIR) 100 UNITS/ML UNITS SQ SCH (21:41)
[2020-03-15] MEDS: ATORVASTATIN CA 20 MG TABLET (FP) PO SCH (21:42)
[2020-03-15] MEDS ORDERED: ATORVASTATIN CA 20 MG TABLET (FP) PO SCH (22:00)
[2020-03-15] MEDS ORDERED: PATIENT'S OWN MEDICATION (NON-FORMULARY) (Insulin Glargine,Hum.Rec.Anlog [Basaglar Kwikpen SQ SCH (22:00)
[2020-03-16] MEDS ORDERED: PT OWN MED DRAWER 7, Y5N ONE ×2 (00:09→10:21)
[2020-03-16] MEDS: oxyCODONE HCL 5 MG TABLET PO PRN ×3 (00:39→13:59)
[2020-03-16] MEDS: morphine SULFATE 4 MG/ML VIAL IVPUSH PRN ×2 (06:09→21:41)
--- NOTE | 2020-03-16 06:52 | CONSULT ---
Consult - text type - Consultation Consultation Note: Podiatry Consultation: 64 year old diabetic, PVD male well known to me from wound healing center, presented with non-healing diabetic post-surgical ulcer left first ray, as well as gangrenous changes to the second digit. The patient is s/p left hallux amputation, left first ray partial resection with me. Postoperatively he did not heal and noted worsening of the second digit. He has been managed by Dr. Pearl as well; s/p LLE angioplasty. The decision was made for TMA given the tissue loss that persisted. He is s/p left transmetatarsal amputation POD#1. Currently with persistent throbbing pain to the left foot. Denies F/V/N/C/SOB/CP. Afebrile. PMHx: DM, HTN, PVD, h/o PE Meds: noted in chart ALL: enalapril, vancomycin JACLYN: L foot: Post-surgical dressing clean, dry, intact. There is no active bleeding, no banadge strikethrough. Sutures are well coapted, no dehiscence noted. There is no purulent drainage, no fluctuance, no streaking ascending cellulitis, no signs of active infection. Significant pain to the surgical site. The plantar flap is warm and well perfused. There are no ischemic changes to the foot. Imp: 64 year old diabetic PVD male s/p left transmetatarsal amputation POD#1 1. Dressing change performed this morning without event. Redressed with xeroform and dry sterile dressing L foot. 2. Non-weightbearing left foot. 3. Pain control. 4. Further management per Dr. Pearl. 5. Can leave post-surgical dressing on tomorrow. Thank you for the courtesy of this consultation.
[2020-03-16 07:26] LABS: BASO % 1.1 % (0-2.0); EOS % 0.9 % (0-4.5); HEMATOCRIT 38.1 % (35.4-49); HEMOGLOBIN 12.2 GM/dL (11.7-16.9); LYMPH % 10.4 % (8-40); MCH 27.9 pg (25.7-33.7); MEAN CELL VOLUME 87.4 fl (80-96); MEAN PLT VOLUME 9.6 fl (7.5-11.1); MONO % 10.6 % (3.8-10.2); PLATELET COUNT 280 K/MM3 (134-434); RBC 4.36 M/mm3 (4.00-5.60); WHITE BLOOD COUNT 19.5 K/mm3 (4.0-10.0)
[2020-03-16 07:48] LABS: BLOOD UREA NITROGEN 14.7 mg/dL (7-18); CALCIUM 8.7 mg/dL (8.5-10.1); CREATININE 1.1 mg/dL (0.55-1.3); POTASSIUM 3.8 mmol/L (3.5-5.1)
--- NOTE | 2020-03-16 09:50 | PN ---
Progress Note (short form) - Note Progress Note: Post op day#1.S/P Left 1st MP joint amputation under GA uneventful.Patient stable.No any anesthesia related problem.Patient Dc from the anesthesia care.
[2020-03-16] MEDS: LORATADINE 10 MG TABLET PO SCH (09:59)
[2020-03-16] MEDS: APIXABAN 5 MG TABLET PO SCH ×2 (09:59→21:35)
[2020-03-16] MEDS: CALCIUM (OYSTER SHELL) 500 MG TABLET (FP) PO SCH (09:59)
[2020-03-16] MEDS: METOPROLOL TARTRATE 25 MG TABLET (FP) PO SCH (09:59)
[2020-03-16] MEDS: PANTOPRAZOLE 20 MG TABLET PO SCH (09:59)
[2020-03-16] MEDS: LOSARTAN POTASSIUM 25 MG TABLET PO SCH (09:59)
[2020-03-16] MEDS: LEFLUNOMIDE 10 MG TABLET PO SCH (09:59)
[2020-03-16] MEDS: methylPREDNISolone 4 MG TABLET PO SCH (10:00)
--- NOTE | 2020-03-16 12:48 | PN ---
Progress Note (short form) - Note Progress Note: Vascular Surgery Pt seen and examined. Doing well. Dressing changed by dr. pulido today. Pt had post op fever. Tylenol started. WBC 19. Prob just from post op inflammatory reaction. Ancef q8 started. Labs ordered for am. Torres Pearl DO Problem List - Problems (1) Gangrene of toe of left foot Code(s): I96 - GANGRENE, NOT ELSEWHERE CLASSIFIED
[2020-03-16] MEDS ORDERED: ceFAZolin SODIUM 1 GM VIAL ONE ×2 (13:28→16:40)
[2020-03-16] MEDS ORDERED: DEXTROSE 5%-WATER - 50 ML IVPB ONE ×2 (13:28→16:40)
[2020-03-16] MEDS: ACETAMINOPHEN 325 MG TABLET (FP) PO PRN (14:00)
[2020-03-16] MEDS: CEFAZOLIN 1 GM in DEXTROSE 5%-WATER - 50 ML IVPB SCH ×2 (14:54→17:07)
[2020-03-16] MEDS: ATORVASTATIN CA 20 MG TABLET (FP) PO SCH (21:35)
[2020-03-16] MEDS: INSULIN (LEVEMIR) 100 UNITS/ML UNITS SQ SCH (21:36)
[2020-03-17] MEDS ORDERED: ceFAZolin SODIUM 1 GM VIAL ONE ×3 (01:53→17:36)
[2020-03-17] MEDS ORDERED: DEXTROSE 5%-WATER - 50 ML IVPB ONE ×3 (01:53→17:36)
[2020-03-17] MEDS: CEFAZOLIN 1 GM in DEXTROSE 5%-WATER - 50 ML IVPB SCH ×3 (01:58→17:47)
[2020-03-17] MEDS: morphine SULFATE 4 MG/ML VIAL IVPUSH PRN ×5 (02:06→22:19)
[2020-03-17] MEDS ORDERED: PT OWN MED DRAWER 7, Y5N ONE ×2 (06:04→06:19)
[2020-03-17] MEDS: ACETAMINOPHEN 325 MG TABLET (FP) PO PRN ×3 (06:14→20:23)
[2020-03-17 08:01] LABS: BASO % 0.5 % (0-2.0); HEMATOCRIT 33.7 % (35.4-49); LYMPH % 5.4 % (8-40); MCH 28.8 pg (25.7-33.7); MCHC 32.6 g/dl (32.0-35.9); MEAN CELL VOLUME 88.2 fl (80-96); MEAN PLT VOLUME 9.7 fl (7.5-11.1); MONO % 9.4 % (3.8-10.2); NEUT % 84.7 % (42.8-82.8); PLATELET COUNT 229 K/MM3 (134-434); RBC 3.82 M/mm3 (4.00-5.60); RDW 14.6 % (11.9-15.9); WHITE BLOOD COUNT 22.2 K/mm3 (4.0-10.0)
[2020-03-17 08:32] LABS: BLOOD UREA NITROGEN 18.5 mg/dL (7-18); CALCIUM 8.7 mg/dL (8.5-10.1); CREATININE 1.4 mg/dL (0.55-1.3); POTASSIUM 3.5 mmol/L (3.5-5.1)
[2020-03-17 09:32] LABS: ANISOCYTOSIS 0; MACROCYTOSIS 0; PLATELET ESTIMATE NORMAL
[2020-03-17] MEDS: METOPROLOL TARTRATE 25 MG TABLET (FP) PO SCH (10:19)
[2020-03-17] MEDS: LEFLUNOMIDE 10 MG TABLET PO SCH (10:19)
[2020-03-17] MEDS: CALCIUM (OYSTER SHELL) 500 MG TABLET (FP) PO SCH (10:19)
[2020-03-17] MEDS: PANTOPRAZOLE 20 MG TABLET PO SCH (10:19)
[2020-03-17] MEDS: APIXABAN 5 MG TABLET PO SCH ×2 (10:19→22:07)
[2020-03-17] MEDS: LOSARTAN POTASSIUM 25 MG TABLET PO SCH (10:19)
[2020-03-17] MEDS: LORATADINE 10 MG TABLET PO SCH (10:19)
[2020-03-17] MEDS: methylPREDNISolone 4 MG TABLET PO SCH (10:20)
[2020-03-17] MEDS: AMINO ACIDS/PROTEIN HYDROLYS 30 ML LIQUID.PKT PO SCH (17:47)
[2020-03-17] MEDS: ATORVASTATIN CA 20 MG TABLET (FP) PO SCH (22:07)
[2020-03-17] MEDS: INSULIN (LEVEMIR) 100 UNITS/ML UNITS SQ SCH (22:07)
[2020-03-18] MEDS ORDERED: ceFAZolin SODIUM 1 GM VIAL ONE ×2 (02:10→09:01)
[2020-03-18] MEDS ORDERED: DEXTROSE 5%-WATER - 50 ML IVPB ONE ×4 (02:10→16:15)
[2020-03-18] MEDS: CEFAZOLIN 1 GM in DEXTROSE 5%-WATER - 50 ML IVPB SCH (02:30)
[2020-03-18] MEDS: INSULIN SLIDING SCALE (NOVOLOG) 1 VIAL SQ SCH ×4 (06:08→22:01)
[2020-03-18] MEDS: morphine SULFATE 4 MG/ML VIAL IVPUSH PRN (06:41)
[2020-03-18] MEDS ORDERED: SODIUM CHLORIDE 1,000 ML IV SCH (08:00)
[2020-03-18] MEDS: APIXABAN 5 MG TABLET PO SCH ×2 (09:36→21:54)
[2020-03-18] MEDS: LOSARTAN POTASSIUM 25 MG TABLET PO SCH (09:36)
[2020-03-18] MEDS: PANTOPRAZOLE 20 MG TABLET PO SCH (09:36)
[2020-03-18] MEDS: LORATADINE 10 MG TABLET PO SCH (09:37)
[2020-03-18] MEDS: CALCIUM (OYSTER SHELL) 500 MG TABLET (FP) PO SCH (09:37)
[2020-03-18] MEDS: LEFLUNOMIDE 10 MG TABLET PO SCH (09:37)
[2020-03-18] MEDS: METOPROLOL TARTRATE 25 MG TABLET (FP) PO SCH (09:37)
[2020-03-18] MEDS: AMINO ACIDS/PROTEIN HYDROLYS 30 ML LIQUID.PKT PO SCH ×2 (09:38→17:12)
[2020-03-18] MEDS: methylPREDNISolone 4 MG TABLET PO SCH (09:38)
[2020-03-18] MEDS ORDERED: PIPERACILLIN/TAZOB 2.25 GM 2.25 GM in DEXTROSE 5%-WATER - 50 ML IVPB SCH ×2 (10:00→15:00)
[2020-03-18] MEDS: LACTATED RINGERS SOLUTION 1,000 ML/1,000 ML INFUS.BAG IV SCH ×2 (10:15→17:12)
[2020-03-18] MEDS ORDERED: PIPERACILLIN/TAZOBACTAM 2.25 GM VIAL IVPB ONE (10:25)
[2020-03-18] MEDS ORDERED: PT OWN MED DRAWER 7, Y5N ONE (10:26)
[2020-03-18 10:27] LABS: BASO % 0.5 % (0-2.0); HEMOGLOBIN 9.4 GM/dL (11.7-16.9); MEAN PLT VOLUME 9.9 fl (7.5-11.1)
[2020-03-18 10:30] LABS: EOS % 0.2 % (0-4.5); LYMPH % 4.7 % (8-40); MCH 27.9 pg (25.7-33.7); MCHC 32.3 g/dl (32.0-35.9); MEAN CELL VOLUME 86.5 fl (80-96); MONO % 7.1 % (3.8-10.2); NEUT % 87.5 % (42.8-82.8); PLATELET COUNT 211 K/MM3 (134-434); RBC 3.36 M/mm3 (4.00-5.60); RDW 14.6 % (11.9-15.9); WHITE BLOOD COUNT 17.7 K/mm3 (4.0-10.0)
[2020-03-18 10:59] LABS: ALBUMIN 2.2 g/dl (3.4-5.0); BILIRUBIN,TOTAL 0.8 mg/dL (0.2-1); BLOOD UREA NITROGEN 15.5 mg/dL (7-18); CALCIUM 8.7 mg/dL (8.5-10.1); CREATININE 1.1 mg/dL (0.55-1.3); POTASSIUM 3.7 mmol/L (3.5-5.1); TOT PROT 5.9 g/dl (6.4-8.2)
--- NOTE | 2020-03-18 11:39 | CON.ID ---
Consult Consult Specialty:: infectious diseases Referred by:: dr cabrera Reason for Consultation:: leukocytosis, fever, lactic acidosis - History of Present Illness Chief Complaint: not feeling well, coughing. sob History of Present Illness: 64 year old diabetic, PVD male , presented with non-healing diabetic post- surgical ulcer left first ray, as well as gangrenous changes to the second digit. The patient is s/p left hallux amputation, left first ray partial resection Postoperatively he did not heal and noted worsening of the second digit. patient then underwent tma and post has been doing well but his wbc started increasing and also he started having lactic acidosis patient mentions that he is coughing and it is also hard for him to breathe feels very weak according to the surgical team the wound looks good also he has spiked a fever - History Source History Provided By: Patient Limitations to Obtaining History: No Limitations - Past Medical History Pulmonary: Yes: Bronchitis, Pneumonia, Pulmonary Embolus. No: Asthma, Cancer, COPD, O2 Dependent, Previously Intubated, Pulmonary Fibrosis, Sleep Apnea Musculoskeletal: Yes: Other (Rheumatoid arthritis) Rheumatology: Yes: Rheumatoid Arthritis Endocrine: Yes: Diabetes Insipidus - Alcohol/Substance Use Hx Alcohol Use: No - Smoking History Smoking history: Never smoked Have you smoked in the past 12 months: No - Social History History of Recent Travel: No Home Medications - Allergies Allergies/Adverse Reactions: Allergies Allergy/AdvReac Type Severity Reaction Status Date / Time enalapril Allergy Severe Cough Verified 03/15/20 06:56 vancomycin AdvReac Mild Itching Verified 03/15/20 06:56 - Home Medications Home Medications: Ambulatory Orders Calcium Carbonate [Oysco-500] 500 mg PO DAILY 07/08/19 Ferrous Sulfate 1 tab PO BID 10/09/19 Apixaban [Eliquis -] 5 mg PO BID 01/30/20 Atorvastatin Ca [Lipitor] 20 mg PO HS 01/30/20 Insulin Glargine,Hum.rec.anlog [Prafulagljosiah Stiles U-100] 10 unit SQ HS 01/30/20 Insulin Lispro [Admelog] 10 unit SQ AC 01/30/20 Leflunomide 10 mg PO DAILY 01/30/20 Methylprednisolone [Medrol -] 4 mg PO DAILY 01/30/20 Metoprolol Tartrate 25 mg PO DAILY 01/30/20 Omeprazole 20 mg PO DAILY 01/30/20 Telmisartan 20 mg PO DAILY 01/30/20 metFORMIN HCL [Metformin ER Osmotic] 1,000 mg PO DAILY 01/30/20 Albuterol Sulfate Inhaler - [Ventolin HFA Inhaler -] 1 - 2 inh PO Q4H #1 inhaler 01/31/20 Multivitamin [Multiple Vitamins] 1 tab PO DAILY 02/02/20 Vitamin C 1 tab PO DAILY 02/02/20 Zinc 1 tab PO DAILY 02/02/20 Collagenase Clostridium Hist. [Santyl] 1 applic TP DAILY #90 oint...g. 02/16/20 Acetaminophen [Tylenol .Extra-Strength -] 500 mg PO Q8H 03/13/20 Cetirizine HCl 10 mg PO DAILY 03/13/20 Folic Acid 1 mg PO DAILY 03/13/20 Family Medical History Family Hx Cancer: Father (Diabetes mellitus) Family Hx Respiratory Disorders: Mother (Asthma) Review of Systems - Review of Systems Constitutional: reports: Fever, Weakness Eyes: reports: No Symptoms HENT: reports: No Symptoms Neck: reports: No Symptoms Cardiovascular: reports: No Symptoms Respiratory: reports: SOB, SOB on Exertion, Other Gastrointestinal: reports: No Symptoms Genitourinary: reports: No Symptoms Musculoskeletal: reports: No Symptoms Integumentary: reports: No Symptoms Neurological: reports: No Symptoms Endocrine: reports: No Symptoms Hematology/Lymphatic: reports: No Symptoms Psychiatric: reports: No Symptoms Physical Exam Vital Signs: Vital Signs Temperature 99.3 F 03/18/20 06:00 Pulse Rate 107 H 03/18/20 06:00 Respiratory Rate 20 03/18/20 06:00 Blood Pressure 122/60 03/18/20 06:00 O2 Sat by Pulse Oximetry (%) 96 03/18/20 06:00 Constitutional: Yes: Mild Distress, Thin Eyes: Yes: Conjunctiva Clear HENT: Yes: Atraumatic, Normocephalic Neck: Yes: Supple, Trachea Midline Cardiovascular: Yes: Regular Rate and Rhythm Respiratory: Yes: On Nasal O2, Poor Air Entry Gastrointestinal: Yes: Normal Bowel Sounds, Soft Musculoskeletal: Yes: WNL Extremities: Yes: Other Wound/Incision: Yes: Dressing Dry and Intact Neurological: Yes: Alert Psychiatric: Yes: Alert, Oriented Labs: CBC, BMP 03/18/20 08:10 08/24/20 07:48 Imaging - Results Chest X-ray: Report Reviewed, Image Reviewed Assessment/Plan this patient with multiple medical problems coming to the hospital and had a tma who is not feeling too well and c/o of sob and weakness xray of the chest is not significant though i worry about pathology in the chest i am going to continue zosyn and also will get a stat ct scan of the chest very close watch also suggest getting a blood gas on the patient resp support
[2020-03-18] MEDS: ACETAMINOPHEN 325 MG TABLET (FP) PO PRN (15:21)
--- NOTE | 2020-03-18 15:42 | PN ---
Progress Note (short form) - Note Progress Note: patient seen and examined at bedside- as per dr smith request pateint to be transferred to medicine service due to sepsis after L TMA operation with elevated WBC and elevated lactic acid GEN: AOX3; NAD NECK: no JVD; no lymphadenopathy LUNGS: slight crackles at the bases CARDIO RRR s1 s2 no MRG ABDOMEN: soft; NT ND +BS in all 4 quadrants EXTREMITIES: L foot dressing: C/d/i no erythema or drainage present plan: sepsis w/u; blood cx/urine cx/IVF/ chest CT and covoid test ordered will send stat repeat lactic acid tylenol PRN for fever
[2020-03-18] MEDS ORDERED: PIPERACILLIN/TAZOBACTAM 3.375 GM VIAL IVPB ONE (16:15)
[2020-03-18] MEDS: PIPERACILLIN/TAZOB 3.375 GM 3.375 GM in DEXTROSE 5%-WATER - 50 ML IVPB SCH (17:04)
[2020-03-18 17:16] LABS: EPI CELLS 7 /uL (0-25.1); HYALINE CASTS 0 /uL (0-3.1); PH,URINE 6.5 (5.0-8.0); URINE APPEARANCE CLEAR; URINE BACTERIA 0 /uL (0-1359); URINE BILIRUBIN NEGATIVE (NEGATIVE); URINE COLOR YELLOW; URINE GLUCOSE (UA) NEGATIVE (NEGATIVE); URINE KETONE TRACE (NEGATIVE); URINE LEUK ESTERASE NEGATIVE (NEGATIVE); URINE NITRITE NEGATIVE (NEGATIVE); URINE PROTEIN 2+ (NEGATIVE); URINE RBC 9 /uL (0-23.9); URINE WBC 3 /uL (0-25.8)
[2020-03-18] MEDS: INSULIN (LEVEMIR) 100 UNITS/ML UNITS SQ SCH (21:54)
[2020-03-18] MEDS: ATORVASTATIN CA 20 MG TABLET (FP) PO SCH (21:54)
[2020-03-18] MEDS: MORPHINE SULFATE 2 MG/ML VIAL IVPUSH PRN (22:11)
[2020-03-19] MEDS: PIPERACILLIN/TAZOB 3.375 GM 3.375 GM in DEXTROSE 5%-WATER - 50 ML IVPB SCH ×3 (02:07→17:21)
[2020-03-19] MEDS ORDERED: PIPERACILLIN/TAZOBACTAM 3.375 GM VIAL IVPB ONE ×3 (03:01→17:10)
[2020-03-19] MEDS ORDERED: DEXTROSE 5%-WATER - 50 ML IVPB ONE ×3 (03:01→17:10)
[2020-03-19] MEDS: MORPHINE SULFATE 2 MG/ML VIAL IVPUSH PRN (03:08)
[2020-03-19] MEDS: INSULIN SLIDING SCALE (NOVOLOG) 1 VIAL SQ SCH ×4 (06:12→22:51)
[2020-03-19] MEDS: LACTATED RINGERS SOLUTION 1,000 ML/1,000 ML INFUS.BAG IV SCH ×3 (06:12→16:42)
[2020-03-19] MEDS ORDERED: oxyCODONE HCL 5 MG TABLET PO PRN (08:08)
--- NOTE | 2020-03-19 08:12 | PN ---
Progress Note (short form) - Note Progress Note: Surgery POD #4 left TMA patient seen and examine on AM rounds. Nursing reports no overnight events but patient c/o pain not controlled by his medication. TMax 100.0, and WBCs trending down after antibiotics changed-ID following. He is tolerating his diet, voiding moving his bowels. He denies any CP, SOB, N/V, subjective fevers or chills. Vital Signs Temp 99.4 F 03/19/20 07:00 Pulse 89 03/19/20 07:00 Resp 20 03/19/20 08:17 BP 118/56 L 03/19/20 07:00 Pulse Ox 95 03/19/20 08:17 Intake & Output 03/18/20 03/18/20 03/19/20 11:59 23:59 11:59 Intake Total 2500 Output Total 300 1700 Balance -300 800 Intake: IV 1100 LAC 0 LACTATED RINGERS SOLUTION 1100 1,000 ml In 1,000 ml @ 75 mls/hr IV ASDIR ZAIN Rx #:[id number] IVPB 200 Oral 1200 Output: Urine 300 1700 Void 300 1700 Other: Voiding Method Urinal Incontinent Urinal # Unmeasured Voids Void 2 Bowel Movement No Yes: 1 # Bowel Movements 1 CBC, BMP 03/19/20 06:50 03/19/20 06:50 PE: A&Ox3, slightly distressed 2/2 pain Unlabored resp on 2L NC Left foot warm and well perfused with + DP pulse, incision with skin edges well approximated with sutures in situ, no d/c, or evidence of infection or collection. dark and dusky area extending from the lateral aspect to the middle of foot and extending up dorsum @ 3cm- surrounding tissue intact with no erythema and no evidence of collection or bogginess. No foul odor. b/l LE compartments soft, supple, NT Chest CT: Atelectasis/infiltration of both bases, worse on left ,compared to prior imaging. Persistent emphasematous changes unchanged Urine and blood cultures pending. Problem List - Problems (1) S/P transmetatarsal amputation of foot Assessment/Plan: POD #4 left TMA, with WBCs trending down in the setting of low grade fevers with atelectasis and infiltration on chest CT. ID following -pain medication modified for better control -encourage pulmonary toilet- daily IS -IV ABX per ID -offload pressure on foot -elevate left LE -trend daily labs -surgery to follow Evaluation and plan discussed with Dr Pearl Code(s): Z89.439 - ACQUIRED ABSENCE OF UNSPECIFIED FOOT
[2020-03-19 08:23] LABS: BASO % 0.5 % (0-2.0); EOS % 0.7 % (0-4.5); HEMATOCRIT 27.2 % (35.4-49); LYMPH % 6.2 % (8-40); MCH 28.1 pg (25.7-33.7); MCHC 32.9 g/dl (32.0-35.9); MEAN CELL VOLUME 85.4 fl (80-96); MEAN PLT VOLUME 9.6 fl (7.5-11.1); MONO % 8.9 % (3.8-10.2); NEUT % 83.7 % (42.8-82.8); PLATELET COUNT 211 K/MM3 (134-434); RBC 3.18 M/mm3 (4.00-5.60); RDW 14.6 % (11.9-15.9); WHITE BLOOD COUNT 14.8 K/mm3 (4.0-10.0)
[2020-03-19 08:47] LABS: BILIRUBIN,TOTAL 0.9 mg/dL (0.2-1); BLOOD UREA NITROGEN 13.6 mg/dL (7-18); CALCIUM 8.5 mg/dL (8.5-10.1); CREATININE 0.8 mg/dL (0.55-1.3); MAGNESIUM 1.8 mg/dL (1.8-2.4); POTASSIUM 3.5 mmol/L (3.5-5.1); TOT PROT 5.5 g/dl (6.4-8.2)
[2020-03-19] MEDS ORDERED: ALBUTEROL SO4 2.5/IPRATROPIUM 0.5 INH SOL 3 ML VIAL.NEB. NEB PRN (09:23)
[2020-03-19] MEDS: METOPROLOL TARTRATE 25 MG TABLET (FP) PO SCH (09:33)
[2020-03-19] MEDS: AMINO ACIDS/PROTEIN HYDROLYS 30 ML LIQUID.PKT PO SCH ×2 (09:33→16:42)
[2020-03-19] MEDS: LEFLUNOMIDE 10 MG TABLET PO SCH (09:33)
[2020-03-19] MEDS: FOLIC ACID 1 MG TABLET (FP) PO SCH (09:34)
[2020-03-19] MEDS: CALCIUM (OYSTER SHELL) 500 MG TABLET (FP) PO SCH (09:34)
[2020-03-19] MEDS: MULTIVITAMINS (DAILY MVI) TABLET (FP) PO SCH (09:34)
[2020-03-19] MEDS: APIXABAN 5 MG TABLET PO SCH ×2 (09:34→22:53)
[2020-03-19] MEDS: FERROUS SO4 325 MG TABLET (FP) PO SCH ×2 (09:34→22:53)
[2020-03-19] MEDS: PANTOPRAZOLE 20 MG TABLET PO SCH (09:34)
[2020-03-19] MEDS: LORATADINE 10 MG TABLET PO SCH (09:34)
[2020-03-19] MEDS: LOSARTAN POTASSIUM 25 MG TABLET PO SCH (09:34)
[2020-03-19] MEDS: methylPREDNISolone 4 MG TABLET PO SCH (09:35)
[2020-03-19] MEDS: ACETAMINOPHEN 325 MG TABLET (FP) PO PRN ×2 (09:36→22:54)
[2020-03-19] MEDS ORDERED: oxyCODONE HCL 10 MG SUSTAINED ACTING TABLET PO SCH (10:00)
--- NOTE | 2020-03-19 11:12 | PN ---
Progress Note, Physician History of Present Illness: very uncomfortable pain in the leg - Current Medication List Current Medications: Active Medications Acetaminophen (Tylenol -) 325 mg PO Q4H PRN PRN Reason: FEVER Last Admin: 03/19/20 09:36 Dose: 325 mg Documented by: Albuterol Sulfate (Ventolin Hfa Inhaler -) 2 puff IH Q4H PRN PRN Reason: SHORTNESS OF BREATH Albuterol/Ipratropium (Duoneb -) 1 amp NEB Q4H PRN PRN Reason: SHORTNESS OF BREATH Amino Acids (Prosource No Carb Liquid Pkt) 30 ml PO BID@0800,1730 [facility] Last Admin: 03/19/20 09:33 Dose: 30 ml Documented by: Apixaban (Eliquis -) 5 mg PO BID [facility] Last Admin: 03/19/20 09:34 Dose: 5 mg Documented by: Atorvastatin Calcium (Lipitor -) 20 mg PO [facility] Last Admin: 03/18/20 21:54 Dose: 20 mg Documented by: Calcium Carbonate (Os-Scott 500mg -) 500 mg PO DAILY [facility] Last Admin: 03/19/20 09:34 Dose: 500 mg Documented by: Docusate Sodium (Colace -) 100 mg PO TID [facility] Ferrous Sulfate (Feosol -) 325 mg PO BID [facility] Last Admin: 03/19/20 09:34 Dose: 325 mg Documented by: Folic Acid (Folic Acid -) 1 mg PO DAILY [facility] Last Admin: 03/19/20 09:34 Dose: 1 mg Documented by: Lactated Ringer's (Lactated Ringers Solution) 1,000 ml in 1,000 mls @ 75 mls/hr IV ASDIR [facility] Last Admin: 03/19/20 09:34 Dose: 75 mls/hr Documented by: Piperacillin Sod/Tazobactam (Sod 3.375 gm/ Dextrose) 50 mls @ 100 mls/hr IVPB Q8H-IV [facility]; Protocol Last Admin: 03/19/20 09:39 Dose: 100 mls/hr Documented by: Insulin Aspart (Novolog Vial Sliding Scale -) 1 vial SQ [facility]; Protocol Last Admin: 03/19/20 06:12 Dose: Not Given Documented by: Insulin Detemir (Levemir Vial) 10 units SQ [facility] Last Admin: 03/18/20 21:54 Dose: 10 units Documented by: Leflunomide (Arava -) 10 mg PO DAILY [facility] Last Admin: 03/19/20 09:33 Dose: 10 mg Documented by: Loratadine (Claritin -) 10 mg PO DAILY [facility] Last Admin: 03/19/20 09:34 Dose: 10 mg Documented by: Losartan Potassium (Cozaar -) 25 mg PO DAILY [facility] Last Admin: 03/19/20 09:34 Dose: 25 mg Documented by: Methylprednisolone (Medrol -) 4 mg PO DAILY [facility] Last Admin: 03/19/20 09:35 Dose: 4 mg Documented by: Metoprolol Tartrate (Lopressor -) 25 mg PO DAILY [facility] Last Admin: 03/19/20 09:33 Dose: 25 mg Documented by: Multivitamins/Minerals/Vitamin C (Tab-A-Vit -) 1 tab PO DAILY [facility] Last Admin: 03/19/20 09:34 Dose: 1 tab Documented by: Ondansetron HCl (Zofran Injection) 4 mg IVPUSH Q6H PRN PRN Reason: NAUSEA AND/OR VOMITING Oxycodone HCl (Oxycontin -) 10 mg PO BID [facility] Last Admin: 03/19/20 09:35 Dose: 10 mg Documented by: Oxycodone HCl (Roxicodone -) 5 mg PO Q6H PRN PRN Reason: Breakthrough pain Pantoprazole Sodium (Protonix -) 20 mg PO DAILY [facility] Last Admin: 03/19/20 09:34 Dose: 20 mg Documented by: - Objective Vital Signs: Vital Signs Temperature 99.4 F 03/19/20 07:00 Pulse Rate 89 03/19/20 07:00 Respiratory Rate 20 03/19/20 08:17 Blood Pressure 118/56 L 03/19/20 07:00 O2 Sat by Pulse Oximetry (%) 95 03/19/20 08:17 Constitutional: Yes: Moderate Distress Eyes: Yes: Conjunctiva Clear Cardiovascular: Yes: S1, S2 Respiratory: Yes: Regular, On Nasal O2, Poor Air Entry Gastrointestinal: Yes: Normal Bowel Sounds, Soft Musculoskeletal: Yes: WNL Extremities: Yes: Other Integumentary: Yes: Other Neurological: Yes: Alert, Oriented Psychiatric: Yes: Alert, Oriented Labs: CBC, BMP 03/19/20 06:50 03/19/20 06:50 Assessment/Plan wound looked at some spots noted to be dusky pain still present will d/w podiatry and vascular wound care
--- NOTE | 2020-03-19 11:52 | OP ---
DATE OF OPERATION: 03/15/2020 PREOPERATIVE DIAGNOSIS: Gangrene, left foot. POSTOPERATIVE DIAGNOSIS: Gangrene, left foot. PROCEDURE: Left transmetatarsal amputation. SURGEON: Torres Antonio DO DIRECTOR GEOPHYSICAL LABORATORY: Santiago Lemus DPM ANESTHESIA: Fractional with nerve block. BLOOD LOSS: 50 mL. HISTORY: Patient is a 64-year-old male that has left foot gangrene. He had a left 1st ray amputated, but due to small vessel disease in his foot secondary to his bad diabetes, it is nonhealing. He would now need a TMA in order to have complete healing. DESCRIPTION OF PROCEDURE: Patient came in through ambulatory surgery. patient was cleared by Medicine and Cardiology. Patient had COVID-19 testing, and it was negative. Patient was consented for the procedure understanding all the risks of bleeding, infection, clot formation. Patient was then brought into the operating room and laid on the operating room table in supine manner. Sedation was given to the patient, and a nerve block was performed by Podiatry in the foot. We then went ahead and using a skin marker barbara a flap along the plantar aspect of the left foot coming across the dorsal aspect of the foot. We then went ahead and injected 15 mL of lidocaine 1% across the dorsal aspect of the foot. We then went ahead and used a No. 15 blade and cut along our incision and all the way down to the plantar aspect. We then were able to dissect down all the way to the metatarsal heads and the rays of the 2nd, 3rd, 4th, and 5th toes. We then went ahead and used an oscillating saw, and we were able to transect across there. We then were able to remove the 2nd, 3rd, 4th, and 5th toes along with any of the tendons that were attached. Bovie electrocautery was used to control hemostasis. We were now left with a flap and the metatarsal heads and rays of the 1st, 2nd, 3rd, 4th, and 5th toes. Using a rongeur, we made sure that everything was flat and smooth. We then went ahead and irrigated the wound copiously. We then were able to use 2-0 Vicryl and approximate fascia to fascia. We then were able to use 3-0 Vicryl, and the subcutaneous tissues were approximated in interrupted manner. We then closed the skin using a 3-0 nylon in an interrupted manner. The wound was then wet and dried. The amputation site closed well without any tension. Xeroform, 4 x 4s, Kerlix, and Camron bandage were placed. The patient tolerated the procedure with no complication. The patient transferred to PACU in stable condition. Total blood loss 50 mL. TORRES ANTONIO DO [id number]
--- NOTE | 2020-03-19 13:01 | PN ---
Progress Note (short form) - Note Progress Note: PULMONARY CONSULTATION DICTATED 03/19/20 IMP DYSPNEA ILD/BRONCHIECTASIS H/O RECURRENT PE 2014,2017 H/O OPEN HEART SURGERY SECONDARY TP PE ? THROMBECTOMY RLL LUNG NODULE ?LLL INFILTRATE HTN PVD DM HLD CHRONIC OSTEOMYELITIS ANEMIA PLAN SUPPLEMENTAL O2 INHALED BRONCHODILATORS NEEDED ABX PER ID WOUND CARE MONITOR LYTES,H+H F/U CHEST X-RAYS DR PLASCENCIA Problem List - Problems (1) S/P transmetatarsal amputation of foot Code(s): Z89.439 - ACQUIRED ABSENCE OF UNSPECIFIED FOOT (2) Diabetic foot ulcer Code(s): E11.621 - TYPE 2 DIABETES MELLITUS WITH FOOT ULCER; L97.509 - NON- PRESSURE CHRONIC ULCER OTH PRT UNSP FOOT W UNSP SEVERITY (3) Gangrene of toe of left foot Code(s): I96 - GANGRENE, NOT ELSEWHERE CLASSIFIED (4) ILD (interstitial lung disease) Code(s): J84.9 - INTERSTITIAL PULMONARY DISEASE, UNSPECIFIED (5) PVD (peripheral vascular disease) Code(s): I73.9 - PERIPHERAL VASCULAR DISEASE, UNSPECIFIED (6) Painful amputation stump Code(s): T87.89 - OTHER COMPLICATIONS OF AMPUTATION STUMP; M79.609 - PAIN IN UNSPECIFIED LIMB (7) Pneumonia Code(s): J18.9 - PNEUMONIA, UNSPECIFIED ORGANISM Qualifiers: Laterality: left Lung location: lower lobe of lung (8) Shortness of breath Code(s): R06.02 - SHORTNESS OF BREATH (9) Hypertension Code(s): I10 - ESSENTIAL (PRIMARY) HYPERTENSION (10) Recurrent pulmonary embolism Code(s): I26.99 - OTHER PULMONARY EMBOLISM WITHOUT ACUTE COR PULMONALE (11) Type 2 diabetes mellitus Code(s): E11.9 - TYPE 2 DIABETES MELLITUS WITHOUT COMPLICATIONS
[2020-03-19] MEDS: DOCUSATE SODIUM 100 MG CAPSULE (FP) PO SCH ×2 (15:24→22:53)
--- NOTE | 2020-03-19 15:45 | PN ---
Progress Note (short form) - Note Progress Note: Podiatry F/U: Seen/evaluated at bedside NAD. Pain is severe and frequent to the left foot. Did have post-operative intermittent fevers. Currently afebrile. S/p left foot transmetatarsal amputation. PE workup in progress. JACLYN: L foot: dressing clean, dry, intact. No active bleeding, minimal bandage strikethrough. Sutures coapted with no dehiscence noted. There is small ischemic patch located dorsally on the flap with some blistering. There is some cloudy drainage noted along the medial aspect of the incision site. There is no purulent drainage, no fluctuance, no streaking ascending cellulitis, no soft tissue crepitus, no signs of acute infection. Significant tenderness to palpation. Imp: 64 year old diabetic PVD male s/p left foot transmetatarsal amputation 1. IV abx per infectious disease 2. Partial removal of sutures at bedside; hopefully this will relax tension along the incision site. 3. Pain control. 4. Will continue to watch demarcation. Will follow. Brittni Lemus DPM
--- NOTE | 2020-03-19 16:20 | PATH ---
Surgical Pathology Report Patient Name: FATOUMATA ELIAS Med. Rec. #: [id number] /Age/Gender: 1955 (Age: 64) / M Account: [id number] Location: [facility] MED/SURG Taken: 03/15/2020 Received: 03/15/2020 Reported: 03/19/2020 Physicians: Torres Pearl Specimen(s) Received LEFT METATARSAL AMPUTATION Clinical History Chronic ulcer of left foot Final Diagnosis LEFT METATARSAL AMPUTATION: AMPUTATED TOES SHOWING GANGRENOUS NECROSIS WITH SEVERE ACUTE AND CHRONIC INFLAMMATION, ABSCESS FORMATION, AND ACUTE OSTEOMYELITIS. VIABLE SKIN AND SOFT TISSUE MARGINS. BONE MARGINS ARE NEGATIVE FOR OSTEOMYELITIS. Electronically Signed Amanda De Luna M.D. Gross Description Received in formalin labeled "left metatarsal amputation," is an 8.0 x 6.3 x 3.3 cm product of a transmetatarsal amputation displaying 4 digits. The first digit appears to have been previously amputated. There is a large defect and ulceration at the previous amputation site. There is a solitario-black, gangrenous lesion surrounding the amputation site, involving the remaining digits as well the underlying bone. Separately received within the same container is an 8.5 x 3.2 x 2.0 cm portion of tissue containing 5 metatarsal bones, consistent with the true bone margins. Filter Press Operator sections are submitted in 7 cassettes as follows: 1-lesion with underlying bone, following decalcification; 2-skin and soft tissue margin; 3-bone margin from first digit, following decalcification; 4-bone margin from second digit, following decalcification; 5-bone margin from third digit, following decalcification; 6-bone margin from fourth digit, following decalcification; 7-bone margin from fifth digit, following decalcification. Additional cassettes are submitted as follows: 8-skin and soft tissue from second digit; 9-skin and soft tissue from third, fourth and fifth digits. /03/15/2020 [facility]03/15/2020
--- NOTE | 2020-03-19 17:17 | PN ---
Physical Exam: SUBJECTIVE: Patient seen and examined. Pt. endorses pain that is intermittent. Pt. states that pain in only in his left foot. and does not move anywhere else. Pt. endorses cough with scant clear sputum production. OBJECTIVE: Vital Signs Period Temp Pulse Resp BP Sys/Dawson Pulse Ox Last 24 Hr 98.7 F-99.8 F 83-102 20-20 113-120/56-61 95-98 GENERAL: The patient is awake, alert, and fully oriented, in no acute distress. HEAD: Normal with no signs of trauma. EYES: Sclera anicteric, conjunctiva clear. ENT: Ears normal, nares patent, oropharynx clear without exudates, moist mucous membranes. LUNGS: diffuse crackles bilaterally, no accessory muscle use. HEART: Regular rate and rhythm, S1, S2 without murmur, rub or gallop. ABDOMEN: Soft, nontender, nondistended, normoactive bowel sounds EXTREMITIES: 2+ R. dorsal pedal pulse, warm, no calf tenderness, well-perfused, no edema. LLE just re-bandaged by wound care. NEUROLOGICAL: Normal speech, gait not observed. PSYCH: Normal mood, normal affect. SKIN: Warm, dry, normal turgor Laboratory Results - last 24 hr 03/18/20 03/18/20 03/18/20 11:00 16:35 21:58 WBC RBC Hgb Hct MCV MCH MCHC RDW Plt Count MPV Absolute Neuts (auto) Neutrophils % Lymphocytes % Monocytes % Eosinophils % Basophils % Nucleated RBC % Sodium Potassium Chloride Carbon Dioxide Anion Gap BUN Creatinine Est GFR (CKD-EPI)AfAm Est GFR (CKD-EPI)NonAf POC Glucometer 165 Random Glucose Lactic Acid 2.6 H* Calcium Magnesium Total Bilirubin AST ALT Alkaline Phosphatase Total Protein Albumin COVID-19 (OSIRIS) Not detected 03/19/20 03/19/20 03/19/20 05:29 06:50 06:50 WBC 14.8 H RBC 3.18 L Hgb 9.0 L Hct 27.2 L MCV 85.4 MCH 28.1 MCHC 32.9 RDW 14.6 Plt Count 211 MPV 9.6 Absolute Neuts (auto) 12.4 H Neutrophils % 83.7 H Lymphocytes % 6.2 L D Monocytes % 8.9 Eosinophils % 0.7 D Basophils % 0.5 Nucleated RBC % 0 Sodium 136 Potassium 3.5 Chloride 100 Carbon Dioxide 28 Anion Gap 7 L BUN 13.6 Creatinine 0.8 Est GFR (CKD-EPI)AfAm 110.96 Est GFR (CKD-EPI)NonAf 95.74 POC Glucometer 94 Random Glucose 73 L Lactic Acid Calcium 8.5 Magnesium 1.8 Total Bilirubin 0.9 AST 35 ALT 13 Alkaline Phosphatase 50 Total Protein 5.5 L Albumin 2.0 L COVID-19 (OSIRIS) 03/19/20 03/19/20 03/19/20 08:25 11:27 16:36 WBC RBC Hgb Hct MCV MCH MCHC RDW Plt Count MPV Absolute Neuts (auto) Neutrophils % Lymphocytes % Monocytes % Eosinophils % Basophils % Nucleated RBC % Sodium Potassium Chloride Carbon Dioxide Anion Gap BUN Creatinine Est GFR (CKD-EPI)AfAm Est GFR (CKD-EPI)NonAf POC Glucometer 102 168 Random Glucose Lactic Acid 1.3 Calcium Magnesium Total Bilirubin AST ALT Alkaline Phosphatase Total Protein Albumin COVID-19 (OSIRIS) Active Medications Generic Name Dose Route Start Last Admin Trade Name Freq PRN Reason Stop Dose Admin Acetaminophen 325 mg 03/17/20 20:58 03/19/20 09:36 Tylenol - PO 325 mg Q4H PRN Administration FEVER Albuterol Sulfate 2 puff 03/15/20 13:45 Ventolin Hfa Inhaler - IH Q4H PRN SHORTNESS OF BREATH Albuterol/Ipratropium 1 amp 03/19/20 09:23 Duoneb - NEB Q4H PRN SHORTNESS OF BREATH Amino Acids 30 ml 03/17/20 17:30 03/19/20 16:42 Prosource No Carb Liquid Pkt PO 30 ml BID@0800,1730 ZAIN Administration Apixaban 5 mg 03/15/20 10:00 03/19/20 09:34 Eliquis - PO 5 mg BID ZAIN Administration Atorvastatin Calcium 20 mg 03/15/20 22:00 03/18/20 21:54 Lipitor - PO 20 mg HS ZAIN Administration Calcium Carbonate 500 mg 03/15/20 10:00 03/19/20 09:34 Os-Scott 500mg - PO 500 mg DAILY ZAIN Administration Docusate Sodium 100 mg 03/19/20 14:00 03/19/20 15:24 Colace - PO 100 mg TID ZAIN Administration Ferrous Sulfate 325 mg 03/19/20 10:00 03/19/20 09:34 Feosol - PO 325 mg BID ZAIN Administration Folic Acid 1 mg 03/19/20 10:00 03/19/20 09:34 Folic Acid - PO 1 mg DAILY ZAIN Administration Lactated Ringer's 1,000 ml in 1,000 mls @ 75 mls/hr 03/18/20 09:15 03/19/20 16:42 Lactated Ringers Solution IV 75 mls/hr ASDIR ZAIN Administration Piperacillin Sod/Tazobactam 50 mls @ 100 mls/hr 03/18/20 18:00 03/19/20 09:39 Sod 3.375 gm/ Dextrose IVPB 100 mls/hr Q8H-IV ZAIN Administration Protocol Insulin Aspart 1 vial 03/18/20 16:30 03/19/20 16:41 Novolog Vial Sliding Scale - SQ 2 units ACHS ZAIN Administration Protocol Insulin Detemir 10 units 03/15/20 22:00 03/18/20 21:54 Levemir Vial SQ 10 units HS ZAIN Administration Leflunomide 10 mg 03/15/20 10:00 03/19/20 09:33 Arava - PO 10 mg DAILY ZAIN Administration Loratadine 10 mg 03/15/20 10:00 03/19/20 09:34 Claritin - PO 10 mg DAILY ZAIN Administration Losartan Potassium 25 mg 03/15/20 10:00 03/19/20 09:34 Cozaar - PO 25 mg DAILY ZAIN Administration Methylprednisolone 4 mg 03/15/20 10:00 03/19/20 09:35 Medrol - PO 4 mg DAILY ZAIN Administration Metoprolol Tartrate 25 mg 03/15/20 10:00 03/19/20 09:33 Lopressor - PO 25 mg DAILY ZAIN Administration Morphine Sulfate 2 mg 03/19/20 12:34 Morphine Sulfate IVPUSH Q6H PRN PAIN LEVEL 7 - 10 Multivitamins/Minerals/Vitamin C 1 tab 03/19/20 10:00 03/19/20 09:34 Tab-A-Vit - PO 1 tab DAILY ZAIN Administration Ondansetron HCl 4 mg 03/15/20 09:41 Zofran Injection IVPUSH Q6H PRN NAUSEA AND/OR VOMITING Pantoprazole Sodium 20 mg 03/15/20 10:00 03/19/20 09:34 Protonix - PO 20 mg DAILY ZAIN Administration Tramadol HCl 50 mg 03/19/20 12:33 Ultram - PO Q6H PRN PAIN LEVEL 4 - 6 ASSESSMENT/PLAN: Pt. is a 64 y.o. M w/ PMHx. of HTN, DM, PVD, RA, GERD, Iron Deficiency Anemia and Hx. of PE presented with L. foot gangrene. Pt. is s/p L. TMA #L. foot TMA POD#4 Consults to wound care, Podiatry and ID appreciated continue IV Zosyn (Day 2) Clean margins as per surgical pathology report. The infected portion had OM, abscess formation, and necrosis. Pain control #HTN #DM #Hx. of PE #ILD #PVD #GERD #RA #JAMES c/w home medications will substitute sliding scale for 10units AC Lispro consult to heme onc appreciated for history of multiple PE consult to pulmonology appreciated for dyspnea, congested sounding cough in the setting of ILD #FEN LR @ 75 monitor electrolytes and replete as needed Sodium controlled diabetic diet #DVT Ppx. Eliquis Visit type - Emergency Visit Emergency Visit: Yes ED Registration Date: 03/15/20 Care time: The patient presented to the Emergency Department on the above date and was hospitalized for further evaluation of their emergent condition. - New Patient This patient is new to me today: Yes Date on this admission: 03/19/20 - Critical Care Critical Care patient: No - Discharge Referral Referred to [facility] Med P.C.: No ATTENDING PHYSICIAN STATEMENT I saw and evaluated the patient. I reviewed the resident's note and discussed the case with the resident. I agree with the resident's findings and plan as documented. SUBJECTIVE: OBJECTIVE: ASSESSMENT AND PLAN:
--- NOTE | 2020-03-19 18:14 | PN ---
Teaching Attending Note Name of Resident: Antione Saleem ATTENDING PHYSICIAN STATEMENT I saw and evaluated the patient. I reviewed the resident's note and discussed the case with the resident. I agree with the resident's findings and plan as documented. SUBJECTIVE: Patient seen and examined at bedside, endorses cough and some SOB likely 2/2 emphysema/COPD, s/p bedside suture removal for TMA, on Zosyn, VSS. OBJECTIVE: GENERAL: Awake, alert, and fully oriented, in no acute distress. EYES: PEERLA; EOMI; no scleral icterus. NECK: no JVD; no lymphadenopathy LUNGS: CTA B.L; no rales, rhonchi or wheezing HEART: RRR, normal S1 and S2 without murmur, rub or gallop. ABDOMEN: Soft, NT/ND +BS in all 4 quadrants . LOWER EXTREMITIES: L great toe amputation with serous/slightly milky discharge from wound site, able to bare weight, adequate pedal pulses+, ;LE warm; well- perfused no clubbing/cyanosis or edema PSYCHIATRIC: Cooperative. Good eye contact. Appropriate mood and affect. SKIN: Warm, dry, normal turgor, no rashes or lesions noted, normal capillary refill. Vital Signs - 24 hr 03/18/20 03/18/20 03/19/20 18:29 21:00 07:00 Temperature 99.8 F H 99.4 F Pulse Rate 102 H 89 Respiratory 20 20 Rate Blood Pressure 120/56 L 118/56 L O2 Sat by Pulse 98 98 95 Oximetry (%) 03/19/20 03/19/20 08:17 14:00 Temperature 98.7 F Pulse Rate 83 Respiratory 20 20 Rate Blood Pressure 113/61 O2 Sat by Pulse 95 Oximetry (%) Microbiology 03/18/20 08:20 Blood - Peripheral Venous Blood Culture - Preliminary NO GROWTH OBTAINED AFTER 24 HOURS, INCUBATION TO CONTINUE FOR 4 DAYS. 03/18/20 08:10 Blood - Peripheral Venous Blood Culture - Preliminary NO GROWTH OBTAINED AFTER 24 HOURS, INCUBATION TO CONTINUE FOR 4 DAYS. Laboratory Results - last 24 hr 03/18/20 03/18/20 03/18/20 11:00 16:35 21:58 WBC RBC Hgb Hct MCV MCH MCHC RDW Plt Count MPV Absolute Neuts (auto) Neutrophils % Lymphocytes % Monocytes % Eosinophils % Basophils % Nucleated RBC % Sodium Potassium Chloride Carbon Dioxide Anion Gap BUN Creatinine Est GFR (CKD-EPI)AfAm Est GFR (CKD-EPI)NonAf POC Glucometer 165 Random Glucose Lactic Acid 2.6 H* Calcium Magnesium Total Bilirubin AST ALT Alkaline Phosphatase Total Protein Albumin COVID-19 (OSIRIS) Not detected 03/19/20 03/19/20 03/19/20 05:29 06:50 06:50 WBC 14.8 H RBC 3.18 L Hgb 9.0 L Hct 27.2 L MCV 85.4 MCH 28.1 MCHC 32.9 RDW 14.6 Plt Count 211 MPV 9.6 Absolute Neuts (auto) 12.4 H Neutrophils % 83.7 H Lymphocytes % 6.2 L D Monocytes % 8.9 Eosinophils % 0.7 D Basophils % 0.5 Nucleated RBC % 0 Sodium 136 Potassium 3.5 Chloride 100 Carbon Dioxide 28 Anion Gap 7 L BUN 13.6 Creatinine 0.8 Est GFR (CKD-EPI)AfAm 110.96 Est GFR (CKD-EPI)NonAf 95.74 POC Glucometer 94 Random Glucose 73 L Lactic Acid Calcium 8.5 Magnesium 1.8 Total Bilirubin 0.9 AST 35 ALT 13 Alkaline Phosphatase 50 Total Protein 5.5 L Albumin 2.0 L COVID-19 (OSIRIS) 03/19/20 03/19/20 03/19/20 08:25 11:27 16:36 WBC RBC Hgb Hct MCV MCH MCHC RDW Plt Count MPV Absolute Neuts (auto) Neutrophils % Lymphocytes % Monocytes % Eosinophils % Basophils % Nucleated RBC % Sodium Potassium Chloride Carbon Dioxide Anion Gap BUN Creatinine Est GFR (CKD-EPI)AfAm Est GFR (CKD-EPI)NonAf POC Glucometer 102 168 Random Glucose Lactic Acid 1.3 Calcium Magnesium Total Bilirubin AST ALT Alkaline Phosphatase Total Protein Albumin COVID-19 (OSIRIS) Home Medications Medication Instructions Recorded Calcium Carbonate [Oysco-500] 500 mg PO DAILY 07/08/19 Ferrous Sulfate 1 tab PO BID 10/09/19 Apixaban [Eliquis -] 5 mg PO BID 01/30/20 Atorvastatin Ca [Lipitor] 20 mg PO HS 01/30/20 Insulin Glargine,Hum.rec.anlog 10 unit SQ HS 01/30/20 [Basaglar Kwikpen U-100] Insulin Lispro [Admelog] 10 unit SQ AC 01/30/20 Leflunomide 10 mg PO DAILY 01/30/20 Methylprednisolone [Medrol -] 4 mg PO DAILY 01/30/20 Metoprolol Tartrate 25 mg PO DAILY 01/30/20 Omeprazole 20 mg PO DAILY 01/30/20 Telmisartan 20 mg PO DAILY 01/30/20 metFORMIN HCL [Metformin ER 1,000 mg PO DAILY 01/30/20 Osmotic] Albuterol Sulfate Inhaler - 1 - 2 inh PO Q4H #1 inhaler 01/31/20 [Ventolin HFA Inhaler -] Multivitamin [Multiple Vitamins] 1 tab PO DAILY 02/02/20 Vitamin C 1 tab PO DAILY 02/02/20 Zinc 1 tab PO DAILY 02/02/20 Collagenase Clostridium Hist. 1 applic TP DAILY #90 oint...g. 02/16/20 [Santyl] Acetaminophen [Tylenol 500 mg PO Q8H 03/13/20 .Extra-Strength -] Cetirizine HCl 10 mg PO DAILY 03/13/20 Folic Acid 1 mg PO DAILY 03/13/20 Current Medications Generic Name Dose Route Start Last Admin Trade Name [facility] PRN Reason Stop Dose Admin Acetaminophen 325 mg 03/17/20 20:58 03/19/20 09:36 Tylenol - PO 325 mg Q4H PRN Administration FEVER Albuterol Sulfate 2 puff 03/15/20 13:45 Ventolin Hfa Inhaler - IH Q4H PRN SHORTNESS OF BREATH Albuterol/Ipratropium 1 amp 03/19/20 09:23 Duoneb - NEB Q4H PRN SHORTNESS OF BREATH Amino Acids 30 ml 03/17/20 17:30 03/19/20 16:42 Prosource No Carb Liquid Pkt PO 30 ml BID@0800,1730 ZAIN Administration Apixaban 5 mg 03/15/20 10:00 03/19/20 09:34 Eliquis - PO 5 mg BID ZAIN Administration Atorvastatin Calcium 20 mg 03/15/20 22:00 03/18/20 21:54 Lipitor - PO 20 mg HS ZAIN Administration Calcium Carbonate 500 mg 03/15/20 10:00 03/19/20 09:34 Os-Scott 500mg - PO 500 mg DAILY ZAIN Administration Docusate Sodium 100 mg 03/19/20 14:00 03/19/20 15:24 Colace - PO 100 mg TID ZAIN Administration Ferrous Sulfate 325 mg 03/19/20 10:00 03/19/20 09:34 Feosol - PO 325 mg BID ZAIN Administration Folic Acid 1 mg 03/19/20 10:00 03/19/20 09:34 Folic Acid - PO 1 mg DAILY ZAIN Administration Lactated Ringer's 1,000 ml in 1,000 mls @ 75 mls/hr 03/18/20 09:15 03/19/20 16:42 Lactated Ringers Solution IV 75 mls/hr ASDIR ZAIN Administration Piperacillin Sod/Tazobactam 50 mls @ 100 mls/hr 03/18/20 18:00 03/19/20 17:21 Sod 3.375 gm/ Dextrose IVPB 100 mls/hr Q8H-IV ZAIN Administration Protocol Insulin Aspart 1 vial 03/18/20 16:30 03/19/20 16:41 Novolog Vial Sliding Scale - SQ 2 units ACHS ZAIN Administration Protocol Insulin Detemir 10 units 03/15/20 22:00 03/18/20 21:54 Levemir Vial SQ 10 units HS ZAIN Administration Leflunomide 10 mg 03/15/20 10:00 03/19/20 09:33 Arava - PO 10 mg DAILY ZAIN Administration Loratadine 10 mg 03/15/20 10:00 03/19/20 09:34 Claritin - PO 10 mg DAILY ZAIN Administration Losartan Potassium 25 mg 03/15/20 10:00 03/19/20 09:34 Cozaar - PO 25 mg DAILY ZAIN Administration Methylprednisolone 4 mg 03/15/20 10:00 03/19/20 09:35 Medrol - PO 4 mg DAILY ZAIN Administration Metoprolol Tartrate 25 mg 03/15/20 10:00 03/19/20 09:33 Lopressor - PO 25 mg DAILY ZAIN Administration Morphine Sulfate 2 mg 03/19/20 12:34 Morphine Sulfate IVPUSH Q6H PRN PAIN LEVEL 7 - 10 Multivitamins/Minerals/Vitamin C 1 tab 03/19/20 10:00 03/19/20 09:34 Tab-A-Vit - PO 1 tab DAILY ZAIN Administration Ondansetron HCl 4 mg 03/15/20 09:41 Zofran Injection IVPUSH Q6H PRN NAUSEA AND/OR VOMITING Pantoprazole Sodium 20 mg 03/15/20 10:00 03/19/20 09:34 Protonix - PO 20 mg DAILY ZAIN Administration Tramadol HCl 50 mg 03/19/20 12:33 Ultram - PO Q6H PRN PAIN LEVEL 4 - 6 ASSESSMENT AND PLAN: 64 M 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 for L TMA, add 1 dose of Vancomycin (?not given) Duonebs/Steroids for COPDE/Emphysema, Pulmonary evaluation Replace electrolytes ID following Podiatry following heme-Onc evaluation for ?prothrombotic state, h/o DVT/PE/CAD Eliquis for PE/DVT ppx
[2020-03-19] MEDS: ATORVASTATIN CA 20 MG TABLET (FP) PO SCH (22:53)
[2020-03-19] MEDS: INSULIN (LEVEMIR) 100 UNITS/ML UNITS SQ SCH (22:53)
[2020-03-20] MEDS ORDERED: PIPERACILLIN/TAZOBACTAM 3.375 GM VIAL IVPB ONE ×3 (01:07→17:18)
[2020-03-20] MEDS ORDERED: DEXTROSE 5%-WATER - 50 ML IVPB ONE ×3 (01:08→17:18)
[2020-03-20] MEDS: LACTATED RINGERS SOLUTION 1,000 ML/1,000 ML INFUS.BAG IV SCH ×2 (01:20→10:09)
[2020-03-20] MEDS: PIPERACILLIN/TAZOB 3.375 GM 3.375 GM in DEXTROSE 5%-WATER - 50 ML IVPB SCH ×3 (01:21→17:34)
[2020-03-20] MEDS: traMADol HCL 50 MG TABLET PO PRN ×3 (01:21→22:41)
[2020-03-20] MEDS: INSULIN SLIDING SCALE (NOVOLOG) 1 VIAL SQ SCH ×4 (06:20→22:43)
[2020-03-20] MEDS: DOCUSATE SODIUM 100 MG CAPSULE (FP) PO SCH ×3 (06:20→22:41)
[2020-03-20] MEDS: ACETAMINOPHEN 325 MG TABLET (FP) PO PRN (06:21)
[2020-03-20] MEDS: MORPHINE SULFATE 2 MG/ML VIAL IVPUSH PRN ×2 (07:46→16:51)
[2020-03-20] MEDS: AMINO ACIDS/PROTEIN HYDROLYS 30 ML LIQUID.PKT PO SCH ×2 (07:47→16:52)
[2020-03-20 08:42] LABS: BASO % 0.8 % (0-2.0); EOS % 2.7 % (0-4.5); HEMATOCRIT 27.5 % (35.4-49); HEMOGLOBIN 8.9 GM/dL (11.7-16.9); LYMPH % 8.8 % (8-40); MCH 27.9 pg (25.7-33.7); MCHC 32.2 g/dl (32.0-35.9); MEAN CELL VOLUME 86.6 fl (80-96); MEAN PLT VOLUME 9.6 fl (7.5-11.1); MONO % 9.1 % (3.8-10.2); NEUT % 78.6 % (42.8-82.8); PLATELET COUNT 212 K/MM3 (134-434); RBC 3.18 M/mm3 (4.00-5.60); RDW 14.5 % (11.9-15.9); WHITE BLOOD COUNT 13.4 K/mm3 (4.0-10.0)
--- NOTE | 2020-03-20 08:54 | PN ---
Progress Note, Physician History of Present Illness: still continues to have pain looks better - Current Medication List Current Medications: Active Medications Acetaminophen (Tylenol -) 325 mg PO Q4H PRN PRN Reason: FEVER Last Admin: 03/20/20 06:21 Dose: 325 mg Documented by: Albuterol Sulfate (Ventolin Hfa Inhaler -) 2 puff IH Q4H PRN PRN Reason: SHORTNESS OF BREATH Albuterol/Ipratropium (Duoneb -) 1 amp NEB Q4H PRN PRN Reason: SHORTNESS OF BREATH Amino Acids (Prosource No Carb Liquid Pkt) 30 ml PO BID@0800,1730 [facility] Last Admin: 03/20/20 07:47 Dose: 30 ml Documented by: Apixaban (Eliquis -) 5 mg PO BID [facility] Last Admin: 03/19/20 22:53 Dose: 5 mg Documented by: Atorvastatin Calcium (Lipitor -) 20 mg PO HS [facility] Last Admin: 03/19/20 22:53 Dose: 20 mg Documented by: Calcium Carbonate (Os-Scott 500mg -) 500 mg PO DAILY [facility] Last Admin: 03/19/20 09:34 Dose: 500 mg Documented by: Docusate Sodium (Colace -) 100 mg PO TID [facility] Last Admin: 03/20/20 06:20 Dose: 100 mg Documented by: Ferrous Sulfate (Feosol -) 325 mg PO BID [facility] Last Admin: 03/19/20 22:53 Dose: 325 mg Documented by: Folic Acid (Folic Acid -) 1 mg PO DAILY [facility] Last Admin: 03/19/20 09:34 Dose: 1 mg Documented by: Lactated Ringer's (Lactated Ringers Solution) 1,000 ml in 1,000 mls @ 75 mls/hr IV ASDIR [facility] Last Admin: 03/20/20 01:20 Dose: 75 mls/hr Documented by: Piperacillin Sod/Tazobactam (Sod 3.375 gm/ Dextrose) 50 mls @ 100 mls/hr IVPB Q8H-IV [facility]; Protocol Last Admin: 03/20/20 01:21 Dose: 100 mls/hr Documented by: Insulin Aspart (Novolog Vial Sliding Scale -) 1 vial SQ ACHS [facility]; Protocol Last Admin: 03/20/20 06:20 Dose: Not Given Documented by: Insulin Detemir (Levemir Vial) 10 units SQ HS [facility] Last Admin: 03/19/20 22:53 Dose: 10 units Documented by: Leflunomide (Arava -) 10 mg PO DAILY [facility] Last Admin: 03/19/20 09:33 Dose: 10 mg Documented by: Loratadine (Claritin -) 10 mg PO DAILY [facility] Last Admin: 03/19/20 09:34 Dose: 10 mg Documented by: Losartan Potassium (Cozaar -) 25 mg PO DAILY [facility] Last Admin: 03/19/20 09:34 Dose: 25 mg Documented by: Methylprednisolone (Medrol -) 4 mg PO DAILY [facility] Last Admin: 03/19/20 09:35 Dose: 4 mg Documented by: Metoprolol Tartrate (Lopressor -) 25 mg PO DAILY [facility] Last Admin: 03/19/20 09:33 Dose: 25 mg Documented by: Morphine Sulfate (Morphine Sulfate) 2 mg IVPUSH Q6H PRN PRN Reason: PAIN LEVEL 7 - 10 Last Admin: 03/20/20 07:46 Dose: 2 mg Documented by: Multivitamins/Minerals/Vitamin C (Tab-A-Vit -) 1 tab PO DAILY [facility] Last Admin: 03/19/20 09:34 Dose: 1 tab Documented by: Ondansetron HCl (Zofran Injection) 4 mg IVPUSH Q6H PRN PRN Reason: NAUSEA AND/OR VOMITING Pantoprazole Sodium (Protonix -) 20 mg PO DAILY [facility] Last Admin: 03/19/20 09:34 Dose: 20 mg Documented by: Tramadol HCl (Ultram -) 50 mg PO Q6H PRN PRN Reason: PAIN LEVEL 4 - 6 Last Admin: 03/20/20 01:21 Dose: 50 mg Documented by: - Objective Vital Signs: Vital Signs Temperature 98.2 F 03/20/20 07:00 Pulse Rate 76 03/20/20 07:00 Respiratory Rate 20 03/20/20 07:00 Blood Pressure 129/63 03/20/20 07:00 O2 Sat by Pulse Oximetry (%) 95 03/20/20 07:00 Constitutional: Yes: Calm, Mild Distress Cardiovascular: Yes: S1, S2 Respiratory: Yes: Regular, CTA Bilaterally Gastrointestinal: Yes: Normal Bowel Sounds, Soft Musculoskeletal: Yes: WNL Extremities: Yes: Other Wound/Incision: Yes: Dressing Dry and Intact Neurological: Yes: Alert, Oriented Psychiatric: Yes: Alert, Oriented Assessment/Plan 64 y.o. M w/ PMHx. of HTN, DM, PVD, RA, GERD, Iron Deficiency Anemia and Hx. of PE presented with L. foot gangrene. Pt. is s/p L. TMA L. foot TMA htn pna dm gerd h/o of pe plan continue abx wound care
[2020-03-20 09:13] LABS: ALBUMIN 1.9 g/dl (3.4-5.0); BILIRUBIN,TOTAL 0.8 mg/dL (0.2-1); BLOOD UREA NITROGEN 13.9 mg/dL (7-18); CALCIUM 7.8 mg/dL (8.5-10.1); CREATININE 0.8 mg/dL (0.55-1.3); MAGNESIUM 1.7 mg/dL (1.8-2.4); POTASSIUM 3.2 mmol/L (3.5-5.1); TOT PROT 5.4 g/dl (6.4-8.2)
[2020-03-20] MEDS ORDERED: PT OWN MED DRAWER 7, Y5N ONE ×2 (10:03→11:35)
[2020-03-20] MEDS: LORATADINE 10 MG TABLET PO SCH (10:08)
[2020-03-20] MEDS: FOLIC ACID 1 MG TABLET (FP) PO SCH (10:08)
[2020-03-20] MEDS: FERROUS SO4 325 MG TABLET (FP) PO SCH ×2 (10:08→22:42)
[2020-03-20] MEDS: PANTOPRAZOLE 20 MG TABLET PO SCH (10:08)
[2020-03-20] MEDS: MULTIVITAMINS (DAILY MVI) TABLET (FP) PO SCH (10:08)
[2020-03-20] MEDS: CALCIUM (OYSTER SHELL) 500 MG TABLET (FP) PO SCH (10:08)
[2020-03-20] MEDS: METOPROLOL TARTRATE 25 MG TABLET (FP) PO SCH (10:08)
[2020-03-20] MEDS: LOSARTAN POTASSIUM 25 MG TABLET PO SCH (10:08)
[2020-03-20] MEDS: APIXABAN 5 MG TABLET PO SCH (10:08)
[2020-03-20] MEDS: LEFLUNOMIDE 10 MG TABLET PO SCH (10:09)
[2020-03-20] MEDS: methylPREDNISolone 4 MG TABLET PO SCH (10:09)
[2020-03-20] MEDS ORDERED: POTASSIUM CHLORIDE TABS 20 MEQ TABLET.ER (FP) PO ONE (10:58)
--- NOTE | 2020-03-20 11:11 | PN ---
Progress Note (short form) - Note Progress Note: Surgery POD #5 left TMA patient seen and examine on AM rounds. Nursing reports no overnight events and patient states his pain is much better controlled after adjusting his medication. TMax 99.7 and WBCs continue to trend down. He is tolerating his diet, voiding moving his bowels. He has a noticeably productive cough but denies any CP, SOB, N/V, subjective fevers or chills. I have discussed and stressed the importance of pulmonary toilet including the use of IS. The patient states he understands. Vital Signs Temp 98.2 F 03/20/20 07:00 Pulse 76 03/20/20 07:00 Resp 20 03/20/20 07:00 BP 129/63 03/20/20 07:00 Pulse Ox 95 03/20/20 07:00 Intake & Output 03/19/20 03/19/20 03/20/20 11:59 23:59 11:59 Intake Total 2300 Output Total 1250 700 Balance 1050 -700 Intake: IV 1210 LAC 10 LACTATED RINGERS SOLUTION 1200 1,000 ml In 1,000 ml @ 75 mls/hr IV ASDIR ZAIN Rx #:[id number] IVPB 100 Oral 990 Output: Urine 1250 700 Void 1250 700 Other: Voiding Method Urinal Urinal Urinal # Unmeasured Voids Void 2 Bowel Movement No CBC, BMP 03/20/20 07:00 03/20/20 07:00 PE: A&Ox3, NAD Unlabored resp on 2L NC Left foot warm and well perfused with + DP pulse, incision with skin edges well approximated with sutures in situ (Dr Weaver removed some sutures over the lateral aspect of the incision yesterday afternoon) no obvious collection or d/c expressed but incision appears slightly more soupy and macerated at edges, dark and dusky nectoric area slightly worse extending from the lateral aspect to the middle of foot and extending up dorsum @ 3cm- surrounding tissue intact with no erythema and no evidence of collection or bogginess. +foul odor noted this morning. b/l LE compartments soft, supple, NT Chest CT: Atelectasis/infiltration of both bases, worse on left ,compared to prior imaging. Persistent emphasematous changes unchanged Microbiology 03/18/20 08:20 Blood - Peripheral Venous Blood Culture - Preliminary NO GROWTH OBTAINED AFTER 48 HOURS, INCUBATION TO C KIZZYINUE FOR 3 DAYS. 03/18/20 08:10 Blood - Peripheral Venous Blood Culture - Preliminary NO GROWTH OBTAINED AFTER 48 HOURS, INCUBATION TO CO NTINUE FOR 3 DAYS. 03/18/20 15:15 Urine - Urine Clean Catch Urine Culture - Final NO GROWTH OBTAINED Problem List - Problems (1) S/P transmetatarsal amputation of foot Assessment/Plan: POD #5 left TMA, with WBCs trending down in the setting of low grade fevers with atelectasis and infiltration on chest CT. ID following. Necrotic area with odor noted and case discussed with Dr Weaver, Dr Spangler and Dr Pearl-surgical plan for further debridement vs BKA and or other management pending. -encourage pulmonary toilet- daily IS -IV ABX per ID -offload pressure on foot -elevate left LE -trend daily labs -surgery to follow Evaluation and plan discussed with Dr Pearl Code(s): Z89.439 - ACQUIRED ABSENCE OF UNSPECIFIED FOOT
--- NOTE | 2020-03-20 14:17 | CONSULT ---
Consultation: Heme-Onc Resident note REQUESTING PROVIDER: Dr. Rondon CONSULT REQUEST: We have been asked to medically evaluate this patient for hx of PE/DVT. HISTORY OF PRESENT ILLNESS: Patient is a 64 year old male with past medical history of DVT, PE on eliquis (2014) s/p thrombectomy (2017), s/p L 1st toe amputation (12/2019), LLE angio (01/2020), DM, HTN, HLD, JAMES, RA, was admitted to the hospital for left foot gangrene and subsequently underwent Left TMA. We were consulted for further evaluation of patient's hypercoagulability given hx of DVT/PE. In 2014, patient was found to have a PE where he took Coumadin for a year. Patient reported he was doing well until 2017 when he had the extensive PE, where he had open thrombectomy at [facility]. Since then, patient had been on Eliquis 5mg bid and follows up with Dr. Rangel regularly. Spoke with Dr. Steve, covering for Dr. Rangel, patient was last seen 2 weeks ago for clearance for the TMA, where he recommended to hold Eliquis 2 days prior to surgery, and may resume AC depending on Vascular's recs. It is known that patient had provoked PE in 2014 where he completed 1 year of coumadin, and then had unprovoked PE in 2017 where he had the thrombectomy and required lifelong AC. Today, patient reports left foot pain, but denies any fevers, chills, headache, chest pain, shortness of breath, abdominal pain. diarrhea, urinary symptoms. Heme-onc: Dr. Ronald Rangel ([phone]) PMHx: DVT, PE on eliquis, DM, HTN, HLD, JAMES, RA PSHx: s/p thrombectomy (2017), s/p L 1st toe amputation (12/2019), LLE angio (01/2020), Left TMA (02/2020) Allergies: Enalapril, Vancomycin SHx: denies smoking, drinking, illicit drug use FHx: brother and sister had OK in their 40s REVIEW OF SYSTEMS: CONSTITUTIONAL: Absent: fever, chills, diaphoresis, generalized weakness, malaise, loss of appetite, weight change HEENT: Absent: rhinorrhea, nasal congestion, throat pain, throat swelling, difficulty swallowing, mouth swelling, ear pain, eye pain, visual changes CARDIOVASCULAR: Absent: chest pain, syncope, palpitations, irregular heart rate, lightheadedness, peripheral edema RESPIRATORY: Absent: cough, shortness of breath, dyspnea with exertion, orthopnea, wheezing, stridor, hemoptysis GASTROINTESTINAL: Absent: abdominal pain, abdominal distension, nausea, vomiting, diarrhea, constipation, melena, hematochezia GENITOURINARY: Absent: dysuria, frequency, urgency, hesitancy, hematuria, flank pain, genital pain MUSCULOSKELETAL: Left foot pain Absent: myalgia, arthralgia, joint swelling, back pain, neck pain SKIN: Absent: rash, itching, pallor HEMATOLOGIC/IMMUNOLOGIC: Absent: easy bleeding, easy bruising, lymphadenopathy, frequent infections ENDOCRINE: Absent: unexplained weight gain, unexplained weight loss, heat intolerance, cold intolerance NEUROLOGIC: Absent: headache, focal weakness or paresthesias, dizziness, unsteady gait, seizure, mental status changes, bladder or bowel incontinence PSYCHIATRIC: Absent: anxiety, depression, suicidal or homicidal ideation, hallucinations. PHYSICAL EXAMINATION Vital Signs - 24 hr 03/19/20 03/19/20 03/19/20 16:30 19:13 21:00 Temperature 99 F 99.7 F H 99.7 F H Pulse Rate 84 Respiratory 20 Rate Blood Pressure 130/80 O2 Sat by Pulse 97 Oximetry (%) 03/19/20 03/20/20 03/20/20 21:14 07:00 10:00 Temperature 99.5 F 98.2 F 97.6 F Pulse Rate 90 76 83 Respiratory 20 20 20 Rate Blood Pressure 120/60 129/63 117/61 O2 Sat by Pulse 97 95 94 L Oximetry (%) GENERAL: Awake, alert, and fully oriented, on 2L NC HEAD: Normal with no signs of trauma. EYES: PERRLA, EOMI, sclera anicteric, conjunctiva clear. EARS, NOSE, THROAT: Moist mucous membranes. NECK: Normal range of motion, supple LUNGS: Bibasilar crackles HEART: Regular rate and rhythm, normal S1 and S2 ABDOMEN: Soft, nontender, not distended, normoactive bowel sounds LOWER EXTREMITIES: 1+ DP pulse, warm, well-perfused RLE. LLE: left foot wrapped in dressing c/d/i. NEUROLOGICAL: Cranial nerves II-XII intact. Normal speech. PSYCHIATRIC: Cooperative. Good eye contact. Appropriate mood and affect. SKIN: Warm, dry, normal turgor Laboratory Results - last 24 hr 03/19/20 03/19/20 03/20/20 16:36 22:50 06:19 WBC RBC Hgb Hct MCV MCH MCHC RDW Plt Count MPV Absolute Neuts (auto) Neutrophils % Lymphocytes % Monocytes % Eosinophils % Basophils % Nucleated RBC % Sodium Potassium Chloride Carbon Dioxide Anion Gap BUN Creatinine Est GFR (CKD-EPI)AfAm Est GFR (CKD-EPI)NonAf POC Glucometer 168 161 78 Random Glucose Calcium Magnesium Total Bilirubin AST ALT Alkaline Phosphatase Total Protein Albumin 03/20/20 03/20/20 03/20/20 07:00 07:00 11:42 WBC 13.4 H RBC 3.18 L Hgb 8.9 L Hct 27.5 L MCV 86.6 MCH 27.9 MCHC 32.2 RDW 14.5 Plt Count 212 MPV 9.6 Absolute Neuts (auto) 10.5 H Neutrophils % 78.6 Lymphocytes % 8.8 D Monocytes % 9.1 Eosinophils % 2.7 D Basophils % 0.8 Nucleated RBC % 0 Sodium 138 Potassium 3.2 L Chloride 103 Carbon Dioxide 28 Anion Gap 7 L BUN 13.9 Creatinine 0.8 Est GFR (CKD-EPI)AfAm 110.96 Est GFR (CKD-EPI)NonAf 95.74 POC Glucometer 117 Random Glucose 77 Calcium 7.8 L Magnesium 1.7 L Total Bilirubin 0.8 AST 70 H ALT 40 Alkaline Phosphatase 98 Total Protein 5.4 L Albumin 1.9 L Active Medications Generic Name Dose Route Start Last Admin Trade Name Howardq PRN Reason Stop Dose Admin Acetaminophen 325 mg 03/17/20 20:58 03/20/20 06:21 Tylenol - PO 325 mg Q4H PRN Administration FEVER Albuterol Sulfate 2 puff 03/15/20 13:45 Ventolin Hfa Inhaler - IH Q4H PRN SHORTNESS OF BREATH Albuterol/Ipratropium 1 amp 03/19/20 09:23 Duoneb - NEB Q4H PRN SHORTNESS OF BREATH Amino Acids 30 ml 03/17/20 17:30 03/20/20 07:47 Prosource No Carb Liquid Pkt PO 30 ml BID@0800,1730 Z[facility] Administration Apixaban 5 mg 03/15/20 10:00 03/20/20 10:08 Eliquis - PO 5 mg BID [facility]AIN Administration Atorvastatin Calcium 20 mg 03/15/20 22:00 03/19/20 22:53 Lipitor - PO 20 mg HS [facility]AIN Administration Calcium Carbonate 500 mg 03/15/20 10:00 03/20/20 10:08 Os-Scott 500mg - PO 500 mg DAILY [facility]AIN Administration Docusate Sodium 100 mg 03/19/20 14:00 03/20/20 13:47 Colace - PO 100 mg TID ZANI Administration Ferrous Sulfate 325 mg 03/19/20 10:00 03/20/20 10:08 Feosol - PO 325 mg BID ZAIN Administration Folic Acid 1 mg 03/19/20 10:00 03/20/20 10:08 Folic Acid - PO 1 mg DAILY ZAIN Administration Lactated Ringer's 1,000 ml in 1,000 mls @ 75 mls/hr 03/18/20 09:15 03/20/20 10:09 Lactated Ringers Solution IV Not Given ASDIR [facility] Piperacillin Sod/Tazobactam 50 mls @ 100 mls/hr 03/18/20 18:00 03/20/20 10:07 Sod 3.375 gm/ Dextrose IVPB 100 mls/hr Q8H-IV [facility] Administration Protocol Insulin Aspart 1 vial 03/18/20 16:30 03/20/20 11:43 Novolog Vial Sliding Scale - SQ Not Given ACHS [facility] Protocol Insulin Detemir 10 units 03/15/20 22:00 03/19/20 22:53 Levemir Vial SQ 10 units HS [facility] Administration Leflunomide 10 mg 03/15/20 10:00 03/20/20 10:09 Arava - PO 10 mg DAILY [facility] Administration Loratadine 10 mg 03/15/20 10:00 03/20/20 10:08 Claritin - PO 10 mg DAILY [facility] Administration Losartan Potassium 25 mg 03/15/20 10:00 03/20/20 10:08 Cozaar - PO 25 mg DAILY [facility] Administration Methylprednisolone 4 mg 03/15/20 10:00 03/20/20 10:09 Medrol - PO 4 mg DAILY [facility] Administration Metoprolol Tartrate 25 mg 03/15/20 10:00 03/20/20 10:08 Lopressor - PO 25 mg DAILY [facility] Administration Morphine Sulfate 2 mg 03/19/20 12:34 03/20/20 07:46 Morphine Sulfate IVPUSH 2 mg Q6H PRN Administration PAIN LEVEL 7 - 10 Multivitamins/Minerals/Vitamin C 1 tab 03/19/20 10:00 03/20/20 10:08 Tab-A-Vit - PO 1 tab DAILY [facility] Administration Ondansetron HCl 4 mg 03/15/20 09:41 Zofran Injection IVPUSH Q6H PRN NAUSEA AND/OR VOMITING Pantoprazole Sodium 40 mg 03/20/20 11:39 Protonix - PO DAILY [facility] Tramadol HCl 50 mg 03/19/20 12:33 03/20/20 13:46 Ultram - PO 50 mg Q6H PRN Administration PAIN LEVEL 4 - 6 ASSESSMENT/PLAN: Patient is a 64 year old male with past medical history of DVT, PE on eliquis (2014) s/p thrombectomy (2017), s/p L 1st toe amputation (12/2019), LLE angio (01/2020), DM, HTN, HLD, JAMES, RA, was admitted to the hospital for left foot gangrene and subsequently underwent Left TMA. We were consulted for further vijaya luation of patient's hypercoagulability given hx of DVT/PE. #Hypercoagulability, Hx of DVT/PE -on Eliquis 5mg bid -Chest CTA on 01/2020 did not show any PE -needs follow up with Dr. Rangel in the clinic Dispo: We will continue to follow the patient. Thank you for this consultative opportunity. Visit type - Emergency Visit Emergency Visit: Yes ED Registration Date: 03/15/20 Care time: The patient presented to the Emergency Department on the above date and was hospitalized for further evaluation of their emergent condition. - New Patient This patient is new to me today: Yes Date on this admission: 03/20/20 - Critical Care Critical Care patient: No ATTENDING PHYSICIAN STATEMENT I saw and evaluated the patient. I reviewed the resident's note and discussed the case with the resident. I agree with the resident's findings and plan as documented. SUBJECTIVE: OBJECTIVE: ASSESSMENT AND PLAN:
--- NOTE | 2020-03-20 14:47 | PN ---
Progress Note, Physician History of Present Illness: PULMONARY ALERT,C/O COUGH,CONGESTION - Current Medication List Current Medications: Active Medications Acetaminophen (Tylenol -) 325 mg PO Q4H PRN PRN Reason: FEVER Last Admin: 03/20/20 06:21 Dose: 325 mg Documented by: Albuterol Sulfate (Ventolin Hfa Inhaler -) 2 puff IH Q4H PRN PRN Reason: SHORTNESS OF BREATH Albuterol/Ipratropium (Duoneb -) 1 amp NEB Q4H PRN PRN Reason: SHORTNESS OF BREATH Amino Acids (Prosource No Carb Liquid Pkt) 30 ml PO BID@0800,1730 [facility] Last Admin: 03/20/20 07:47 Dose: 30 ml Documented by: Apixaban (Eliquis -) 5 mg PO BID [facility] Last Admin: 03/20/20 10:08 Dose: 5 mg Documented by: Atorvastatin Calcium (Lipitor -) 20 mg PO HS [facility] Last Admin: 03/19/20 22:53 Dose: 20 mg Documented by: Calcium Carbonate (Os-Scott 500mg -) 500 mg PO DAILY [facility] Last Admin: 03/20/20 10:08 Dose: 500 mg Documented by: Docusate Sodium (Colace -) 100 mg PO TID [facility] Last Admin: 03/20/20 13:47 Dose: 100 mg Documented by: Ferrous Sulfate (Feosol -) 325 mg PO BID [facility] Last Admin: 03/20/20 10:08 Dose: 325 mg Documented by: Folic Acid (Folic Acid -) 1 mg PO DAILY [facility] Last Admin: 03/20/20 10:08 Dose: 1 mg Documented by: Lactated Ringer's (Lactated Ringers Solution) 1,000 ml in 1,000 mls @ 75 mls/hr IV ASDIR [facility] Last Admin: 03/20/20 10:09 Dose: Not Given Documented by: Piperacillin Sod/Tazobactam (Sod 3.375 gm/ Dextrose) 50 mls @ 100 mls/hr IVPB Q8H-IV [facility]; Protocol Last Admin: 03/20/20 10:07 Dose: 100 mls/hr Documented by: Insulin Aspart (Novolog Vial Sliding Scale -) 1 vial SQ ACHS [facility]; Protocol Last Admin: 03/20/20 11:43 Dose: Not Given Documented by: Insulin Detemir (Levemir Vial) 10 units SQ HS [facility] Last Admin: 03/19/20 22:53 Dose: 10 units Documented by: Leflunomide (Arava -) 10 mg PO DAILY [facility] Last Admin: 03/20/20 10:09 Dose: 10 mg Documented by: Loratadine (Claritin -) 10 mg PO DAILY [facility] Last Admin: 03/20/20 10:08 Dose: 10 mg Documented by: Losartan Potassium (Cozaar -) 25 mg PO DAILY [facility] Last Admin: 03/20/20 10:08 Dose: 25 mg Documented by: Methylprednisolone (Medrol -) 4 mg PO DAILY [facility] Last Admin: 03/20/20 10:09 Dose: 4 mg Documented by: Metoprolol Tartrate (Lopressor -) 25 mg PO DAILY [facility] Last Admin: 03/20/20 10:08 Dose: 25 mg Documented by: Morphine Sulfate (Morphine Sulfate) 2 mg IVPUSH Q6H PRN PRN Reason: PAIN LEVEL 7 - 10 Last Admin: 03/20/20 07:46 Dose: 2 mg Documented by: Multivitamins/Minerals/Vitamin C (Tab-A-Vit -) 1 tab PO DAILY [facility] Last Admin: 03/20/20 10:08 Dose: 1 tab Documented by: Ondansetron HCl (Zofran Injection) 4 mg IVPUSH Q6H PRN PRN Reason: NAUSEA AND/OR VOMITING Pantoprazole Sodium (Protonix -) 40 mg PO DAILY [facility] Tramadol HCl (Ultram -) 50 mg PO Q6H PRN PRN Reason: PAIN LEVEL 4 - 6 Last Admin: 03/20/20 13:46 Dose: 50 mg Documented by: - Objective Vital Signs: Vital Signs Temperature 97.6 F 03/20/20 10:00 Pulse Rate 83 03/20/20 10:00 Respiratory Rate 20 03/20/20 10:00 Blood Pressure 117/61 03/20/20 10:00 O2 Sat by Pulse Oximetry (%) 94 L 03/20/20 10:00 Constitutional: Yes: Well Nourished, Calm Eyes: Yes: WNL HENT: Yes: WNL Neck: Yes: WNL Cardiovascular: Yes: Regular Rate and Rhythm, S1, S2 Respiratory: Yes: Rales (JANY RALES1/3 UP) Gastrointestinal: Yes: Normal Bowel Sounds, Soft Extremities: Yes: WNL Edema: No Labs: CBC, BMP 03/20/20 07:00 03/20/20 07:00 Problem List - Problems (1) S/P transmetatarsal amputation of foot Code(s): Z89.439 - ACQUIRED ABSENCE OF UNSPECIFIED FOOT (2) Diabetic foot ulcer Code(s): E11.621 - TYPE 2 DIABETES MELLITUS WITH FOOT ULCER; L97.509 - NON- PRESSURE CHRONIC ULCER OTH PRT UNSP FOOT W UNSP SEVERITY (3) Gangrene of toe of left foot Code(s): I96 - GANGRENE, NOT ELSEWHERE CLASSIFIED (4) ILD (interstitial lung disease) Code(s): J84.9 - INTERSTITIAL PULMONARY DISEASE, UNSPECIFIED (5) PVD (peripheral vascular disease) Code(s): I73.9 - PERIPHERAL VASCULAR DISEASE, UNSPECIFIED (6) Painful amputation stump Code(s): T87.89 - OTHER COMPLICATIONS OF AMPUTATION STUMP; M79.609 - PAIN IN UNSPECIFIED LIMB (7) Pneumonia Code(s): J18.9 - PNEUMONIA, UNSPECIFIED ORGANISM Qualifiers: Laterality: left Lung location: lower lobe of lung (8) Shortness of breath Code(s): R06.02 - SHORTNESS OF BREATH (9) Hypertension Code(s): I10 - ESSENTIAL (PRIMARY) HYPERTENSION (10) Recurrent pulmonary embolism Code(s): I26.99 - OTHER PULMONARY EMBOLISM WITHOUT ACUTE COR PULMONALE (11) Type 2 diabetes mellitus Code(s): E11.9 - TYPE 2 DIABETES MELLITUS WITHOUT COMPLICATIONS Assessment/Plan IMP DYSPNEA ILD/BRONCHIECTASIS H/O RECURRENT PE 2014,2017 H/O OPEN HEART SURGERY SECONDARY TP PE ? THROMBECTOMY RLL LUNG NODULE ?LLL INFILTRATE HTN PVD DM HLD CHRONIC OSTEOMYELITIS ANEMIA PLAN SUPPLEMENTAL O2 INHALED BRONCHODILATORS ABX PER ID WOUND CARE MONITOR LYTES,H+H F/U CHEST X-RAYS DR PLASCENCIA Problem List - Problems (1) S/P transmetatarsal amputation of foot Code(s): Z89.439 - ACQUIRED ABSENCE OF UNSPECIFIED FOOT (2) Diabetic foot ulcer Code(s): E11.621 - TYPE 2 DIABETES MELLITUS WITH FOOT ULCER; L97.509 - NON- PRESSURE CHRONIC ULCER OTH PRT UNSP FOOT W UNSP SEVERITY (3) Gangrene of toe of left foot Code(s): I96 - GANGRENE, NOT ELSEWHERE CLASSIFIED (4) ILD (interstitial lung disease) Code(s): J84.9 - INTERSTITIAL PULMONARY DISEASE, UNSPECIFIED (5) PVD (peripheral vascular disease) Code(s): I73.9 - PERIPHERAL VASCULAR DISEASE, UNSPECIFIED (6) Painful amputation stump Code(s): T87.89 - OTHER COMPLICATIONS OF AMPUTATION STUMP; M79.609 - PAIN IN UNSPECIFIED LIMB (7) Pneumonia Code(s): J18.9 - PNEUMONIA, UNSPECIFIED ORGANISM Qualifiers: Laterality: left Lung location: lower lobe of lung (8) Shortness of breath Code(s): R06.02 - SHORTNESS OF BREATH (9) Hypertension Code(s): I10 - ESSENTIAL (PRIMARY) HYPERTENSION (10) Recurrent pulmonary embolism Code(s): I26.99 - OTHER PULMONARY EMBOLISM WITHOUT ACUTE COR PULMONALE (11) Type 2 diabetes mellitus Code(s): E11.9 - TYPE 2 DIABETES MELLITUS WITHOUT COMPLICATIONS
--- NOTE | 2020-03-20 15:58 | PN ---
Physical Exam: SUBJECTIVE: Patient seen and examined. Discussed with Heme/Onc that Pt. follows with Dr. Rangel, however he was not present at time (on vacation), covering provider did not have access to a computer but states that Pt. has history of 1 provoked PE in 2014 and then a larger PE that was unprovoked. He had advised that Pt. stop Eliquis 2 days prior to amputation and resume at vascular surgeon's discretion. Covernig provider stated that Pt. saw Dr. Rangel 2 weeks ago and that a full thrombophilia workup-up has been done on him in the past how ever no etiology was discovered. Pt. this morning endorses improvement of pain. OBJECTIVE: Vital Signs Period Temp Pulse Resp BP Sys/Dawson Pulse Ox Last 24 Hr 97.6 F-99.7 F 76-90 20-20 117-130/60-80 94-97 GENERAL: The patient is awake, alert, and fully oriented, in no acute distress. HEAD: Normal with no signs of trauma. EYES: Sclera anicteric, conjunctiva clear. ENT: Ears normal, nares patent, oropharynx clear without exudates, moist mucous membranes. LUNGS: diffuse crackles bilaterally, no accessory muscle use. HEART: Regular rate and rhythm, S1, S2 without murmur, rub or gallop. ABDOMEN: Soft, nontender, nondistended, normoactive bowel sounds EXTREMITIES: 2+ R. dorsal pedal pulse, warm, no calf tenderness, well-perfused, no edema. LLE bandaged by wound care(Per wound care increased duskiness, necrosis, severe tenderness with foul odor) NEUROLOGICAL: Normal speech, gait not observed. PSYCH: Normal mood, normal affect. SKIN: Warm, dry, normal turgor Laboratory Results - last 24 hr 03/19/20 03/19/20 03/20/20 16:36 22:50 06:19 WBC RBC Hgb Hct MCV MCH MCHC RDW Plt Count MPV Absolute Neuts (auto) Neutrophils % Lymphocytes % Monocytes % Eosinophils % Basophils % Nucleated RBC % Sodium Potassium Chloride Carbon Dioxide Anion Gap BUN Creatinine Est GFR (CKD-EPI)AfAm Est GFR (CKD-EPI)NonAf POC Glucometer 168 161 78 Random Glucose Calcium Magnesium Total Bilirubin AST ALT Alkaline Phosphatase Total Protein Albumin 03/20/20 03/20/20 03/20/20 07:00 07:00 11:42 WBC 13.4 H RBC 3.18 L Hgb 8.9 L Hct 27.5 L MCV 86.6 MCH 27.9 MCHC 32.2 RDW 14.5 Plt Count 212 MPV 9.6 Absolute Neuts (auto) 10.5 H Neutrophils % 78.6 Lymphocytes % 8.8 D Monocytes % 9.1 Eosinophils % 2.7 D Basophils % 0.8 Nucleated RBC % 0 Sodium 138 Potassium 3.2 L Chloride 103 Carbon Dioxide 28 Anion Gap 7 L BUN 13.9 Creatinine 0.8 Est GFR (CKD-EPI)AfAm 110.96 Est GFR (CKD-EPI)NonAf 95.74 POC Glucometer 117 Random Glucose 77 Calcium 7.8 L Magnesium 1.7 L Total Bilirubin 0.8 AST 70 H ALT 40 Alkaline Phosphatase 98 Total Protein 5.4 L Albumin 1.9 L Active Medications Generic Name Dose Route Start Last Admin Trade Name Freq PRN Reason Stop Dose Admin Acetaminophen 325 mg 03/17/20 20:58 03/20/20 06:21 Tylenol - PO 325 mg Q4H PRN Administration FEVER Albuterol Sulfate 2 puff 03/15/20 13:45 Ventolin Hfa Inhaler - IH Q4H PRN SHORTNESS OF BREATH Albuterol/Ipratropium 1 amp 03/19/20 09:23 Duoneb - NEB Q4H PRN SHORTNESS OF BREATH Amino Acids 30 ml 03/17/20 17:30 03/20/20 07:47 Prosource No Carb Liquid Pkt PO 30 ml BID@0800,1730 [facility] Administration Apixaban 5 mg 03/15/20 10:00 03/20/20 10:08 Eliquis - PO 5 mg BID [facility] Administration Atorvastatin Calcium 20 mg 03/15/20 22:00 03/19/20 22:53 Lipitor - PO 20 mg HS [facility] Administration Budesonide/Formoterol Fumarate 2 puff 03/20/20 22:00 Symbicort 160/4.5mcg - IH BID [facility] Calcium Carbonate 500 mg 03/15/20 10:00 03/20/20 10:08 Os-Scott 500mg - PO 500 mg DAILY [facility] Administration Docusate Sodium 100 mg 03/19/20 14:00 03/20/20 13:47 Colace - PO 100 mg TID [facility] Administration Ferrous Sulfate 325 mg 03/19/20 10:00 03/20/20 10:08 Feosol - PO 325 mg BID [facility] Administration Folic Acid 1 mg 03/19/20 10:00 03/20/20 10:08 Folic Acid - PO 1 mg DAILY [facility] Administration Lactated Ringer's 1,000 ml in 1,000 mls @ 75 mls/hr 03/18/20 09:15 03/20/20 10:09 Lactated Ringers Solution IV Not Given ASDIR [facility] Piperacillin Sod/Tazobactam 50 mls @ 100 mls/hr 03/18/20 18:00 03/20/20 10:07 Sod 3.375 gm/ Dextrose IVPB 100 mls/hr Q8H-IV [facility] Administration Protocol Insulin Aspart 1 vial 03/18/20 16:30 03/20/20 11:43 Novolog Vial Sliding Scale - SQ Not Given ACHS [facility] Protocol Insulin Detemir 10 units 03/15/20 22:00 03/19/20 22:53 Levemir Vial SQ 10 units HS [facility] Administration Leflunomide 10 mg 03/15/20 10:00 03/20/20 10:09 Arava - PO 10 mg DAILY [facility] Administration Loratadine 10 mg 03/15/20 10:00 03/20/20 10:08 Claritin - PO 10 mg DAILY [facility] Administration Losartan Potassium 25 mg 03/15/20 10:00 03/20/20 10:08 Cozaar - PO 25 mg DAILY [facility] Administration Methylprednisolone 4 mg 03/15/20 10:00 03/20/20 10:09 Medrol - PO 4 mg DAILY [facility] Administration Metoprolol Tartrate 25 mg 03/15/20 10:00 03/20/20 10:08 Lopressor - PO 25 mg DAILY [facility] Administration Morphine Sulfate 2 mg 03/19/20 12:34 03/20/20 07:46 Morphine Sulfate IVPUSH 2 mg Q6H PRN Administration PAIN LEVEL 7 - 10 Multivitamins/Minerals/Vitamin C 1 tab 03/19/20 10:00 03/20/20 10:08 Tab-A-Vit - PO 1 tab DAILY [facility] Administration Ondansetron HCl 4 mg 03/15/20 09:41 Zofran Injection IVPUSH Q6H PRN NAUSEA AND/OR VOMITING Pantoprazole Sodium 40 mg 03/20/20 11:39 Protonix - PO DAILY [facility] Tramadol HCl 50 mg 03/19/20 12:33 03/20/20 13:46 Ultram - PO 50 mg Q6H PRN Administration PAIN LEVEL 4 - 6 ASSESSMENT/PLAN: Pt. is a 64 y.o. M w/ PMHx. of HTN, DM, PVD, RA, GERD, Iron Deficiency Anemia and Hx. of PE presented with L. foot gangrene. Pt. is s/p L. TMA #L. foot TMA POD#5 ( TMA- 03/15) Consults to wound care, Podiatry and ID appreciated continue IV Zosyn (Day 3) Clean margins as per surgical pathology report. The infected portion had OM, a bscess formation, and necrosis. Pain control Pt. may require further debridement vs. BKA as Pt. has increased duskiness, necrosis and foul odor. #HTN #DM #Hx. of multiple PE #ILD #PVD #GERD #RA #JAMES c/w home medications will substitute sliding scale for 10units AC Lispro consult to heme onc appreciated for history of multiple PE consult to pulmonology appreciated for dyspnea, congested sounding cough in the setting of ILD #FEN LR @ 75 monitor electrolytes and replete as needed; repleted potassium today Sodium controlled diabetic diet #DVT Ppx. Eliquis Held evening dose (2 days prior for anticipated BKA) Visit type - Emergency Visit Emergency Visit: Yes ED Registration Date: 03/15/20 Care time: The patient presented to the Emergency Department on the above date and was hospitalized for further evaluation of their emergent condition. - New Patient This patient is new to me today: Yes Date on this admission: 03/20/20 - Critical Care Critical Care patient: No - Discharge Referral Referred to [facility] Med P.C.: No ATTENDING PHYSICIAN STATEMENT I saw and evaluated the patient. I reviewed the resident's note and discussed the case with the resident. I agree with the resident's findings and plan as documented. SUBJECTIVE: OBJECTIVE: ASSESSMENT AND PLAN:
[2020-03-20] MEDS: BUDESONIDE/FORMETEROL FUMARATE 160/4.5 mcg INHALER IH SCH ×2 (17:35→22:43)
[2020-03-20] MEDS ORDERED: INSULIN (NOVOLOG) ASPART 100 UNITS/ML 10ML VIAL ONE (21:32)
[2020-03-20] MEDS: ATORVASTATIN CA 20 MG TABLET (FP) PO SCH (22:42)
[2020-03-20] MEDS: INSULIN (LEVEMIR) 100 UNITS/ML UNITS SQ SCH (22:42)
[2020-03-21] MEDS ORDERED: PIPERACILLIN/TAZOBACTAM 3.375 GM VIAL IVPB ONE ×3 (01:30→17:07)
[2020-03-21] MEDS ORDERED: DEXTROSE 5%-WATER - 50 ML IVPB ONE ×3 (01:30→17:08)
[2020-03-21] MEDS: PIPERACILLIN/TAZOB 3.375 GM 3.375 GM in DEXTROSE 5%-WATER - 50 ML IVPB SCH ×3 (01:44→17:52)
[2020-03-21] MEDS: MORPHINE SULFATE 2 MG/ML VIAL IVPUSH PRN ×4 (05:07→23:51)
[2020-03-21] MEDS: DOCUSATE SODIUM 100 MG CAPSULE (FP) PO SCH ×3 (05:08→21:13)
[2020-03-21] MEDS ORDERED: INSULIN (LEVEMIR) 100 UNITS/ML UNITS SQ ONE (05:46)
[2020-03-21] MEDS: INSULIN SLIDING SCALE (NOVOLOG) 1 VIAL SQ SCH ×4 (06:02→21:13)
[2020-03-21 08:15] LABS: BASO % 0.8 % (0-2.0); EOS % 3.7 % (0-4.5); HEMATOCRIT 27.4 % (35.4-49); HEMOGLOBIN 9.1 GM/dL (11.7-16.9); LYMPH % 9.3 % (8-40); MCH 28.7 pg (25.7-33.7); MCHC 33.4 g/dl (32.0-35.9); MEAN PLT VOLUME 9.6 fl (7.5-11.1); MONO % 8.1 % (3.8-10.2); NEUT % 78.1 % (42.8-82.8); PLATELET COUNT 243 K/MM3 (134-434); RBC 3.18 M/mm3 (4.00-5.60); RDW 15.1 % (11.9-15.9); WHITE BLOOD COUNT 15.5 K/mm3 (4.0-10.0)
[2020-03-21 08:48] LABS: ALBUMIN 1.9 g/dl (3.4-5.0); BILIRUBIN,TOTAL 0.8 mg/dL (0.2-1); BLOOD UREA NITROGEN 10.6 mg/dL (7-18); CREATININE 0.8 mg/dL (0.55-1.3); MAGNESIUM 1.7 mg/dL (1.8-2.4); POTASSIUM 3.3 mmol/L (3.5-5.1); TOT PROT 5.6 g/dl (6.4-8.2)
[2020-03-21] MEDS ORDERED: PT OWN MED DRAWER 7, Y5N ONE (09:38)
[2020-03-21] MEDS: METOPROLOL TARTRATE 25 MG TABLET (FP) PO SCH (09:44)
[2020-03-21] MEDS: FERROUS SO4 325 MG TABLET (FP) PO SCH ×2 (09:44→21:13)
[2020-03-21] MEDS: MULTIVITAMINS (DAILY MVI) TABLET (FP) PO SCH (09:44)
[2020-03-21] MEDS: FOLIC ACID 1 MG TABLET (FP) PO SCH (09:44)
[2020-03-21] MEDS: LOSARTAN POTASSIUM 25 MG TABLET PO SCH (09:44)
[2020-03-21] MEDS: LEFLUNOMIDE 10 MG TABLET PO SCH (09:44)
[2020-03-21] MEDS: LORATADINE 10 MG TABLET PO SCH (09:44)
[2020-03-21] MEDS: PANTOPRAZOLE 20 MG TABLET PO SCH (09:44)
[2020-03-21] MEDS: CALCIUM (OYSTER SHELL) 500 MG TABLET (FP) PO SCH (09:44)
[2020-03-21] MEDS: AMINO ACIDS/PROTEIN HYDROLYS 30 ML LIQUID.PKT PO SCH ×2 (09:45→16:57)
[2020-03-21] MEDS: methylPREDNISolone 4 MG TABLET PO SCH (09:45)
[2020-03-21] MEDS: BUDESONIDE/FORMETEROL FUMARATE 160/4.5 mcg INHALER IH SCH ×2 (09:45→21:15)
[2020-03-21] MEDS ORDERED: MORPHINE SULFATE 2 MG/ML VIAL IVPUSH PRN (10:46)
--- NOTE | 2020-03-21 11:13 | PN ---
Progress Note, Physician History of Present Illness: still continues to have pain pain better wbc has increased - Current Medication List Current Medications: Active Medications Acetaminophen (Tylenol -) 325 mg PO Q4H PRN PRN Reason: FEVER Last Admin: 03/20/20 06:21 Dose: 325 mg Documented by: Albuterol Sulfate (Ventolin Hfa Inhaler -) 2 puff IH Q4H PRN PRN Reason: SHORTNESS OF BREATH Albuterol/Ipratropium (Duoneb -) 1 amp NEB Q4H PRN PRN Reason: SHORTNESS OF BREATH Amino Acids (Prosource No Carb Liquid Pkt) 30 ml PO BID@0800,1730 [facility] Last Admin: 03/21/20 09:45 Dose: 30 ml Documented by: Apixaban (Eliquis -) 5 mg PO BID [facility] Last Admin: 03/20/20 10:08 Dose: 5 mg Documented by: Atorvastatin Calcium (Lipitor -) 20 mg PO [facility] Last Admin: 03/20/20 22:42 Dose: 20 mg Documented by: Budesonide/Formoterol Fumarate (Symbicort 160/4.5mcg -) 2 puff IH BID [facility] Last Admin: 03/21/20 09:45 Dose: 2 puff Documented by: Calcium Carbonate (Os-Scott 500mg -) 500 mg PO DAILY [facility] Last Admin: 03/21/20 09:44 Dose: 500 mg Documented by: Docusate Sodium (Colace -) 100 mg PO TID [facility] Last Admin: 03/21/20 05:08 Dose: 100 mg Documented by: Ferrous Sulfate (Feosol -) 325 mg PO BID [facility] Last Admin: 03/21/20 09:44 Dose: 325 mg Documented by: Folic Acid (Folic Acid -) 1 mg PO DAILY [facility] Last Admin: 03/21/20 09:44 Dose: 1 mg Documented by: Piperacillin Sod/Tazobactam (Sod 3.375 gm/ Dextrose) 50 mls @ 100 mls/hr IVPB Q8H-IV [facility]; Protocol Last Admin: 03/21/20 09:45 Dose: 100 mls/hr Documented by: Insulin Aspart (Novolog Vial Sliding Scale -) 1 vial SQ [facility]; Protocol Last Admin: 03/21/20 06:02 Dose: Not Given Documented by: Insulin Detemir (Levemir Vial) 10 units SQ [facility] Last Admin: 03/20/20 22:42 Dose: 10 units Documented by: Leflunomide (Arava -) 10 mg PO DAILY [facility] Last Admin: 03/21/20 09:44 Dose: 10 mg Documented by: Loratadine (Claritin -) 10 mg PO DAILY [facility] Last Admin: 03/21/20 09:44 Dose: 10 mg Documented by: Losartan Potassium (Cozaar -) 25 mg PO DAILY [facility] Last Admin: 03/21/20 09:44 Dose: 25 mg Documented by: Methylprednisolone (Medrol -) 4 mg PO DAILY [facility] Last Admin: 03/21/20 09:45 Dose: 4 mg Documented by: Metoprolol Tartrate (Lopressor -) 25 mg PO DAILY [facility] Last Admin: 03/21/20 09:44 Dose: 25 mg Documented by: Morphine Sulfate (Morphine Sulfate) 2 mg IVPUSH Q4H PRN PRN Reason: PAIN LEVEL 7 - 10 Multivitamins/Minerals/Vitamin C (Tab-A-Vit -) 1 tab PO DAILY [facility] Last Admin: 03/21/20 09:44 Dose: 1 tab Documented by: Ondansetron HCl (Zofran Injection) 4 mg IVPUSH Q6H PRN PRN Reason: NAUSEA AND/OR VOMITING Pantoprazole Sodium (Protonix -) 40 mg PO DAILY [facility] Last Admin: 03/21/20 09:44 Dose: 40 mg Documented by: Tramadol HCl (Ultram -) 50 mg PO Q6H PRN PRN Reason: PAIN LEVEL 4 - 6 Last Admin: 03/20/20 22:41 Dose: 50 mg Documented by: - Objective Vital Signs: Vital Signs Temperature 99.3 F 03/21/20 06:00 Pulse Rate 79 03/21/20 06:00 Respiratory Rate 20 03/21/20 06:00 Blood Pressure 123/59 L 03/21/20 06:00 O2 Sat by Pulse Oximetry (%) 98 03/21/20 06:00 Constitutional: Yes: Calm, Mild Distress Cardiovascular: Yes: S1, S2 Gastrointestinal: Yes: Normal Bowel Sounds, Soft Musculoskeletal: Yes: WNL Extremities: Yes: Other Wound/Incision: Yes: Dressing Dry and Intact Neurological: Yes: Alert, Oriented Psychiatric: Yes: Alert, Oriented Labs: CBC, BMP 03/21/20 06:25 03/21/20 06:25 Assessment/Plan 64 y.o. M w/ PMHx. of HTN, DM, PVD, RA, GERD, Iron Deficiency Anemia and Hx. of PE presented with L. foot gangrene. Pt. is s/p L. TMA L. foot TMA htn pna dm gerd h/o of pe plan continue abx wound care wbc has increased
--- NOTE | 2020-03-21 11:55 | PN ---
Progress Note (short form) - Note Progress Note: Vascular Surgery: Pt having left foot pain. Vital Signs Period Temp Pulse Resp BP Sys/Dawson Pulse Ox Last 24 Hr 97.9 F-99.8 F 68-83 20-20 120-134/59-70 98-100 GEN: A&0x3, NAD Left TMA: suture line intact demarcation of left suture line with bogginess to the lateral dorsal aspect, approximately 2 x 2cm and on the plantar medial surface the is bogginess 3 x 2cm area. THe skin in these areas appears to have necrosis and is black in color. No driange noted but there is a foul odor to the foot. CBC, BMP 03/21/20 06:25 03/21/20 06:25 A/P: 64 yo male s/p Left TMA now with foot that appears to be infected and having some tissue loss. D/w Dr. Pearl and will plan for L BKA Spoke with the patient concerning his foot and the infection. D/w Dae to speak with the patient regarding the probable need for a left BKA IV abx for now, monitor fever curve and leukocytosis. Local wd are with xeroform/gauze and kerlix.
--- NOTE | 2020-03-21 12:18 | PN ---
Progress Note (short form) - Note Progress Note: Podiatry F/U; Seen/evaluated at bedside NAD. Persistent pain to the left foot, mildly improved. Still with fevers. Other vitals stable. S/p left transmetatarsal amputation. JACLYN: L foot: post-surgical TMA stump with duskiness noted plantarly, a bit worse than yesterday. Duskiness along the suture line. Ischemic blistering noted dorsal and laterally. There is cloudy seropurulent drainage expressed laterally. There is no soft tissue crepitus, no streaking ascending cellulitis. Significant tenderness to palpation. Imp: 64 year old diabetic PVD male s/p left TMA with infected ischemic TMA stump 1. IV abx per ID 2. Continue local care 3. vascular input appreciated. Agree with JOE FARRELL 4. Will follow Brittni Lemus DPM
--- NOTE | 2020-03-21 13:33 | PN ---
Progress Note (short form) - Note Progress Note: PULMONARY Breathing better. Still some cough. No fevers. Vital Signs Period Temp Pulse Resp BP Sys/Dawson Pulse Ox Last 24 Hr 97.9 F-99.8 F 68-83 20-20 120-134/59-70 98-100 Gen: NAD at rest Heart: RRR Lung: basilar rales, rhonchi Abd: soft, nontender Ext: no edema CBC, BMP 03/21/20 06:25 03/21/20 06:25 Active Medications Acetaminophen (Tylenol -) 325 mg PO Q4H PRN PRN Reason: FEVER Last Admin: 03/20/20 06:21 Dose: 325 mg Documented by: Albuterol Sulfate (Ventolin Hfa Inhaler -) 2 puff IH Q4H PRN PRN Reason: SHORTNESS OF BREATH Albuterol/Ipratropium (Duoneb -) 1 amp NEB Q4H PRN PRN Reason: SHORTNESS OF BREATH Amino Acids (Prosource No Carb Liquid Pkt) 30 ml PO BID@0800,1730 [facility] Last Admin: 03/21/20 09:45 Dose: 30 ml Documented by: Apixaban (Eliquis -) 5 mg PO BID [facility] Last Admin: 03/20/20 10:08 Dose: 5 mg Documented by: Atorvastatin Calcium (Lipitor -) 20 mg PO HS [facility] Last Admin: 03/20/20 22:42 Dose: 20 mg Documented by: Budesonide/Formoterol Fumarate (Symbicort 160/4.5mcg -) 2 puff IH BID [facility] Last Admin: 03/21/20 09:45 Dose: 2 puff Documented by: Calcium Carbonate (Os-Scott 500mg -) 500 mg PO DAILY [facility] Last Admin: 03/21/20 09:44 Dose: 500 mg Documented by: Docusate Sodium (Colace -) 100 mg PO TID [facility] Last Admin: 03/21/20 05:08 Dose: 100 mg Documented by: Ferrous Sulfate (Feosol -) 325 mg PO BID [facility] Last Admin: 03/21/20 09:44 Dose: 325 mg Documented by: Folic Acid (Folic Acid -) 1 mg PO DAILY [facility] Last Admin: 03/21/20 09:44 Dose: 1 mg Documented by: Piperacillin Sod/Tazobactam (Sod 3.375 gm/ Dextrose) 50 mls @ 100 mls/hr IVPB Q8H-IV [facility]; Protocol Last Admin: 03/21/20 09:45 Dose: 100 mls/hr Documented by: Insulin Aspart (Novolog Vial Sliding Scale -) 1 vial SQ ACHS [facility]; Protocol Last Admin: 03/21/20 06:02 Dose: Not Given Documented by: Insulin Detemir (Levemir Vial) 10 units SQ HS [facility] Last Admin: 03/20/20 22:42 Dose: 10 units Documented by: Leflunomide (Arava -) 10 mg PO DAILY [facility] Last Admin: 03/21/20 09:44 Dose: 10 mg Documented by: Loratadine (Claritin -) 10 mg PO DAILY [facility] Last Admin: 03/21/20 09:44 Dose: 10 mg Documented by: Losartan Potassium (Cozaar -) 25 mg PO DAILY [facility] Last Admin: 03/21/20 09:44 Dose: 25 mg Documented by: Methylprednisolone (Medrol -) 4 mg PO DAILY [facility] Last Admin: 03/21/20 09:45 Dose: 4 mg Documented by: Metoprolol Tartrate (Lopressor -) 25 mg PO DAILY [facility] Last Admin: 03/21/20 09:44 Dose: 25 mg Documented by: Morphine Sulfate (Morphine Sulfate) 2 mg IVPUSH Q4H PRN PRN Reason: PAIN LEVEL 7 - 10 Multivitamins/Minerals/Vitamin C (Tab-A-Vit -) 1 tab PO DAILY [facility] Last Admin: 03/21/20 09:44 Dose: 1 tab Documented by: Ondansetron HCl (Zofran Injection) 4 mg IVPUSH Q6H PRN PRN Reason: NAUSEA AND/OR VOMITING Pantoprazole Sodium (Protonix -) 40 mg PO DAILY [facility] Last Admin: 03/21/20 09:44 Dose: 40 mg Documented by: Tramadol HCl (Ultram -) 50 mg PO Q6H PRN PRN Reason: PAIN LEVEL 4 - 6 Last Admin: 03/20/20 22:41 Dose: 50 mg Documented by: A/P Pneumonia Interstitial Lung Disease Bronchiectasis h/o PE PAD HTN DM Hyperlipidemia - continue antibiotics - inhaled bronchodilators - O2 to keep SpO2 >90% - continue anticoagulation
--- NOTE | 2020-03-21 14:26 | PN ---
Teaching Attending Note Name of Resident: Kimberley Horton ATTENDING PHYSICIAN STATEMENT I saw and evaluated the patient. I reviewed the resident's note and discussed the case with the resident. I agree with the resident's findings and plan as documented. ASSESSMENT AND PLAN: Patient is a 64 year old male with past medical history of DVT, PE on eliquis (2014) s/p thrombectomy (2017), s/p L 1st toe amputation (12/2019), LLE angio (01/2020), DM, HTN, HLD, JAMES, ILD RA, was admitted to the hospital for left foot gangrene and subsequently underwent Left TMA. Now on antibiotics for infection at the Lt. TMA site. Planned for Lt. BKA We were consulted given hx of DVT/PE. #Hypercoagulability, Hx of DVT/PE, -on Eliquis 5mg bid -Chest CTA on 01/2020 no e/o PE will discuss with vascular team needs outpatient follow up with Dr. Rangel
--- NOTE | 2020-03-21 15:22 | PN ---
Progress Note (short form) - Note Progress Note: Vascular surgery Left tma site is not healing. Area is boggy and draining with odor. Skin is blistering and patient is having a lot of pain. The left foot does not have enough circulation to sustain a tma due to his diabetes. Spoke to pt about all options, the best option would be a bka. Will do at 730am tomorrow. WBC is 15. Pt continues to have low grade fevers. Before pt becomes septic, pt will need bka. Torres Pearl DO Problem List - Problems (1) Gangrene of toe of left foot Code(s): I96 - GANGRENE, NOT ELSEWHERE CLASSIFIED
[2020-03-21] MEDS ORDERED: MAGNESIUM OXIDE 400 MG TABLET (FP) PO ONE (15:58)
[2020-03-21] MEDS ORDERED: POTASSIUM CHLORIDE TABS 20 MEQ TABLET.ER (FP) PO ONE (15:59)
[2020-03-21] MEDS: traMADol HCL 50 MG TABLET PO PRN (16:50)
[2020-03-21] MEDS ORDERED: INSULIN (NOVOLOG) ASPART 100 UNITS/ML 10ML VIAL ONE ×2 (16:56→20:48)
--- NOTE | 2020-03-21 18:24 | PN ---
Physical Exam: SUBJECTIVE: Patient seen and examined. Pt. endorses continued pain 4/10 but had just received pain medication. Pt. denies any new complaints. OBJECTIVE: Vital Signs Period Temp Pulse Resp BP Sys/Dawson Pulse Ox Last 24 Hr 98.9 F-99.8 F 67-85 18-20 118-134/56-68 98-100 GENERAL: The patient is awake, alert, and fully oriented, in no acute distress. HEAD: Normal with no signs of trauma. EYES: Sclera anicteric, conjunctiva clear. ENT: Ears normal, nares patent, oropharynx clear without exudates, moist mucous membranes. LUNGS: diffuse crackles bilaterally, no accessory muscle use. HEART: Regular rate and rhythm, S1, S2 without murmur, rub or gallop. ABDOMEN: Soft, nontender, nondistended, normoactive bowel sounds EXTREMITIES: 2+ R. dorsal pedal pulse, warm, no calf tenderness, well-perfused, no edema. LLE bandaged by wound care(Per wound care increased duskiness, necrosis, severe tenderness with foul odor) however popliteal pulse felt NEUROLOGICAL: Normal speech, gait not observed. PSYCH: Normal mood, normal affect. SKIN: Warm, dry, normal turgor Laboratory Results - last 24 hr 03/20/20 03/21/20 03/21/20 22:38 05:55 06:25 WBC 15.5 H RBC 3.18 L Hgb 9.1 L Hct 27.4 L MCV 86.0 MCH 28.7 MCHC 33.4 RDW 15.1 Plt Count 243 MPV 9.6 Absolute Neuts (auto) 12.1 H Neutrophils % 78.1 Lymphocytes % 9.3 Monocytes % 8.1 Eosinophils % 3.7 Basophils % 0.8 Nucleated RBC % 0 Sodium Potassium Chloride Carbon Dioxide Anion Gap BUN Creatinine Est GFR (CKD-EPI)AfAm Est GFR (CKD-EPI)NonAf POC Glucometer 176 86 Random Glucose Calcium Magnesium Total Bilirubin AST ALT Alkaline Phosphatase Total Protein Albumin Crossmatch 03/21/20 03/21/20 03/21/20 06:25 12:06 16:52 WBC RBC Hgb Hct MCV MCH MCHC RDW Plt Count MPV Absolute Neuts (auto) Neutrophils % Lymphocytes % Monocytes % Eosinophils % Basophils % Nucleated RBC % Sodium 136 Potassium 3.3 L Chloride 102 Carbon Dioxide 26 Anion Gap 8 BUN 10.6 Creatinine 0.8 Est GFR (CKD-EPI)AfAm 110.96 Est GFR (CKD-EPI)NonAf 95.74 POC Glucometer 137 274 Random Glucose 77 Calcium 8.0 L Magnesium 1.7 L Total Bilirubin 0.8 AST 69 H ALT 58 Alkaline Phosphatase 156 H Total Protein 5.6 L Albumin 1.9 L Crossmatch 03/21/20 17:25 WBC RBC Hgb Hct MCV MCH MCHC RDW Plt Count MPV Absolute Neuts (auto) Neutrophils % Lymphocytes % Monocytes % Eosinophils % Basophils % Nucleated RBC % Sodium Potassium Chloride Carbon Dioxide Anion Gap BUN Creatinine Est GFR (CKD-EPI)AfAm Est GFR (CKD-EPI)NonAf POC Glucometer Random Glucose Calcium Magnesium Total Bilirubin AST ALT Alkaline Phosphatase Total Protein Albumin Crossmatch See Detail Active Medications Generic Name Dose Route Start Last Admin Trade Name Freq PRN Reason Stop Dose Admin Acetaminophen 325 mg 03/17/20 20:58 03/20/20 06:21 Tylenol - PO 325 mg Q4H PRN Administration FEVER Albuterol Sulfate 2 puff 03/15/20 13:45 Ventolin Hfa Inhaler - IH Q4H PRN SHORTNESS OF BREATH Albuterol/Ipratropium 1 amp 03/19/20 09:23 Duoneb - NEB Q4H PRN SHORTNESS OF BREATH Amino Acids 30 ml 03/17/20 17:30 03/21/20 16:57 Prosource No Carb Liquid Pkt PO 30 ml BID@0800,1730 [facility] Administration Atorvastatin Calcium 20 mg 03/15/20 22:00 03/20/20 22:42 Lipitor - PO 20 mg HS [facility] Administration Budesonide/Formoterol Fumarate 2 puff 03/20/20 22:00 03/21/20 09:45 Symbicort 160/4.5mcg - IH 2 puff BID [facility] Administration Calcium Carbonate 500 mg 03/15/20 10:00 03/21/20 09:44 Os-Scott 500mg - PO 500 mg DAILY [facility] Administration Docusate Sodium 100 mg 03/19/20 14:00 03/21/20 14:31 Colace - PO 100 mg TID [facility] Administration Ferrous Sulfate 325 mg 03/19/20 10:00 03/21/20 09:44 Feosol - PO 325 mg BID [facility] Administration Folic Acid 1 mg 03/19/20 10:00 03/21/20 09:44 Folic Acid - PO 1 mg DAILY [facility] Administration Piperacillin Sod/Tazobactam 50 mls @ 100 mls/hr 03/18/20 18:00 03/21/20 17:52 Sod 3.375 gm/ Dextrose IVPB 100 mls/hr Q8H-IV [facility] Administration Protocol Insulin Aspart 1 vial 03/18/20 16:30 03/21/20 16:57 Novolog Vial Sliding Scale - SQ 6 units ACHS [facility] Administration Protocol Insulin Detemir 10 units 03/15/20 22:00 03/20/20 22:42 Levemir Vial SQ 10 units HS [facility] Administration Leflunomide 10 mg 03/15/20 10:00 03/21/20 09:44 Arava - PO 10 mg DAILY [facility] Administration Loratadine 10 mg 03/15/20 10:00 03/21/20 09:44 Claritin - PO 10 mg DAILY [facility] Administration Losartan Potassium 25 mg 03/15/20 10:00 03/21/20 09:44 Cozaar - PO 25 mg DAILY [facility] Administration Methylprednisolone 4 mg 03/15/20 10:00 03/21/20 09:45 Medrol - PO 4 mg DAILY [facility] Administration Metoprolol Tartrate 25 mg 03/15/20 10:00 03/21/20 09:44 Lopressor - PO 25 mg DAILY [facility] Administration Morphine Sulfate 2 mg 03/21/20 10:47 03/21/20 17:59 Morphine Sulfate IVPUSH 2 mg Q4H PRN Administration PAIN LEVEL 7 - 10 Multivitamins/Minerals/Vitamin C 1 tab 03/19/20 10:00 03/21/20 09:44 Tab-A-Vit - PO 1 tab DAILY [facility] Administration Ondansetron HCl 4 mg 03/15/20 09:41 Zofran Injection IVPUSH Q6H PRN NAUSEA AND/OR VOMITING Pantoprazole Sodium 40 mg 03/20/20 11:39 03/21/20 09:44 Protonix - PO 40 mg DAILY [facility] Administration Tramadol HCl 50 mg 03/19/20 12:33 03/21/20 16:50 Ultram - PO 50 mg Q6H PRN Administration PAIN LEVEL 4 - 6 ASSESSMENT/PLAN: Pt. is a 64 y.o. M w/ PMHx. of HTN, DM, PVD, RA, GERD, Iron Deficiency Anemia and Hx. of PE presented with L. foot gangrene. Pt. is s/p L. TMA. #L. foot TMA POD#6 (TMA- 03/15) Consults to wound care, Podiatry and ID appreciated continue IV Zosyn (Day 4) Clean margins as per surgical pathology report. The infected portion had OM, abscess formation, and necrosis. Pain control Pt. for BKA in AM #HTN #DM #Hx. of multiple PE #ILD #PVD #GERD #RA #JAMES c/w home medications will substitute sliding scale for 10units AC Lispro consult to Heme/Onc appreciated for history of multiple PE consult to Pulmonology appreciated for dyspnea, congested sounding cough in the setting of ILD #FEN LR @ 75 monitor electrolytes and replete as needed; repleted potassium today NPO after midnight for OR #DVT Ppx. 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 Visit type - Emergency Visit Emergency Visit: Yes ED Registration Date: 03/15/20 Care time: The patient presented to the Emergency Department on the above date and was hospitalized for further evaluation of their emergent condition. - New Patient This patient is new to me today: No - Critical Care Critical Care patient: No - Discharge Referral Referred to [facility] Med P.C.: No ATTENDING PHYSICIAN STATEMENT I saw and evaluated the patient. I reviewed the resident's note and discussed the case with the resident. I agree with the resident's findings and plan as documented. SUBJECTIVE: OBJECTIVE: ASSESSMENT AND PLAN:
[2020-03-21] MEDS: ATORVASTATIN CA 20 MG TABLET (FP) PO SCH (21:13)
[2020-03-21] MEDS: INSULIN (LEVEMIR) 100 UNITS/ML UNITS SQ SCH (21:13)
[2020-03-22] MEDS ORDERED: PIPERACILLIN/TAZOBACTAM 3.375 GM VIAL IVPB ONE ×3 (00:42→17:37)
[2020-03-22] MEDS ORDERED: DEXTROSE 5%-WATER - 50 ML IVPB ONE ×2 (00:42→17:37)
[2020-03-22] MEDS: PIPERACILLIN/TAZOB 3.375 GM 3.375 GM in DEXTROSE 5%-WATER - 50 ML IVPB SCH ×3 (01:02→17:58)
[2020-03-22] MEDS: DOCUSATE SODIUM 100 MG CAPSULE (FP) PO SCH ×3 (05:38→22:24)
[2020-03-22] MEDS: MORPHINE SULFATE 2 MG/ML VIAL IVPUSH PRN (05:38)
[2020-03-22] MEDS: INSULIN SLIDING SCALE (NOVOLOG) 1 VIAL SQ SCH ×4 (06:37→22:25)
[2020-03-22] MEDS ORDERED: PROPOFOL 20 ML ONE (07:18)
[2020-03-22] MEDS ORDERED: fentaNYL CITRATE 250 MCG/5 ML VIAL ONE (07:18)
[2020-03-22] MEDS ORDERED: ROCURONIUM BROMIDE 50 MG/5 ML SYRINGE ONE (07:18)
[2020-03-22] MEDS ORDERED: MIDAZOLAM HCL 2 MG/2 ML SINGLE DOSE VIAL ONE ×3 (07:19)
[2020-03-22 07:55] LABS: EOS % 4.3 % (0-4.5); HEMATOCRIT 26.7 % (35.4-49); HEMOGLOBIN 8.8 GM/dL (11.7-16.9); LYMPH % 11.6 % (8-40); MCH 28.2 pg (25.7-33.7); MEAN CELL VOLUME 85.5 fl (80-96); MEAN PLT VOLUME 8.7 fl (7.5-11.1); MONO % 9.4 % (3.8-10.2); NEUT % 73.7 % (42.8-82.8); PLATELET COUNT 331 K/MM3 (134-434); RBC 3.13 M/mm3 (4.00-5.60); RDW 14.9 % (11.9-15.9)
[2020-03-22] MEDS ORDERED: DEXAMETHASONE SOD PHOSPHATE 4 MG/1 ML VIAL ONE (08:09)
[2020-03-22 08:13] LABS: BLOOD UREA NITROGEN 12.2 mg/dL (7-18); CALCIUM 7.7 mg/dL (8.5-10.1); CREATININE 0.8 mg/dL (0.55-1.3); MAGNESIUM 1.8 mg/dL (1.8-2.4); POTASSIUM 3.8 mmol/L (3.5-5.1)
--- NOTE | 2020-03-22 09:04 | PN ---
Progress Note, Physician History of Present Illness: pain patient going for bka - Current Medication List Current Medications: Active Medications Acetaminophen (Tylenol -) 325 mg PO Q4H PRN PRN Reason: FEVER Last Admin: 03/20/20 06:21 Dose: 325 mg Documented by: Albuterol Sulfate (Ventolin Hfa Inhaler -) 2 puff IH Q4H PRN PRN Reason: SHORTNESS OF BREATH Albuterol/Ipratropium (Duoneb -) 1 amp NEB Q4H PRN PRN Reason: SHORTNESS OF BREATH Amino Acids (Prosource No Carb Liquid Pkt) 30 ml PO BID@0800,1730 [facility] Last Admin: 03/21/20 16:57 Dose: 30 ml Documented by: Atorvastatin Calcium (Lipitor -) 20 mg PO HS [facility] Last Admin: 03/21/20 21:13 Dose: 20 mg Documented by: Budesonide/Formoterol Fumarate (Symbicort 160/4.5mcg -) 2 puff IH BID [facility] Last Admin: 03/21/20 21:15 Dose: 2 puff Documented by: Calcium Carbonate (Os-Scott 500mg -) 500 mg PO DAILY [facility] Last Admin: 03/21/20 09:44 Dose: 500 mg Documented by: Docusate Sodium (Colace -) 100 mg PO TID [facility] Last Admin: 03/22/20 05:38 Dose: Not Given Documented by: Ferrous Sulfate (Feosol -) 325 mg PO BID [facility] Last Admin: 03/21/20 21:13 Dose: 325 mg Documented by: Folic Acid (Folic Acid -) 1 mg PO DAILY [facility] Last Admin: 03/21/20 09:44 Dose: 1 mg Documented by: Piperacillin Sod/Tazobactam (Sod 3.375 gm/ Dextrose) 50 mls @ 100 mls/hr IVPB Q8H-IV [facility]; Protocol Last Admin: 03/22/20 01:02 Dose: 100 mls/hr Documented by: Insulin Aspart (Novolog Vial Sliding Scale -) 1 vial SQ [facility]; Protocol Last Admin: 03/22/20 06:37 Dose: Not Given Documented by: Insulin Detemir (Levemir Vial) 10 units SQ [facility] Last Admin: 03/21/20 21:13 Dose: 10 units Documented by: Leflunomide (Arava -) 10 mg PO DAILY [facility] Last Admin: 03/21/20 09:44 Dose: 10 mg Documented by: Loratadine (Claritin -) 10 mg PO DAILY [facility] Last Admin: 03/21/20 09:44 Dose: 10 mg Documented by: Losartan Potassium (Cozaar -) 25 mg PO DAILY [facility] Last Admin: 03/21/20 09:44 Dose: 25 mg Documented by: Methylprednisolone (Medrol -) 4 mg PO DAILY [facility] Last Admin: 03/21/20 09:45 Dose: 4 mg Documented by: Metoprolol Tartrate (Lopressor -) 25 mg PO DAILY [facility] Last Admin: 03/21/20 09:44 Dose: 25 mg Documented by: Morphine Sulfate (Morphine Sulfate) 2 mg IVPUSH Q4H PRN PRN Reason: PAIN LEVEL 7 - 10 Last Admin: 03/22/20 05:38 Dose: 2 mg Documented by: Multivitamins/Minerals/Vitamin C (Tab-A-Vit -) 1 tab PO DAILY [facility] Last Admin: 03/21/20 09:44 Dose: 1 tab Documented by: Ondansetron HCl (Zofran Injection) 4 mg IVPUSH Q6H PRN PRN Reason: NAUSEA AND/OR VOMITING Pantoprazole Sodium (Protonix -) 40 mg PO DAILY [facility] Last Admin: 03/21/20 09:44 Dose: 40 mg Documented by: Tramadol HCl (Ultram -) 50 mg PO Q6H PRN PRN Reason: PAIN LEVEL 4 - 6 Last Admin: 03/21/20 16:50 Dose: 50 mg Documented by: - Objective Vital Signs: Vital Signs Temperature 99.2 F 03/22/20 06:00 Pulse Rate 82 03/22/20 06:00 Respiratory Rate 20 03/22/20 06:00 Blood Pressure 128/62 03/22/20 06:00 O2 Sat by Pulse Oximetry (%) 98 03/21/20 20:33 Constitutional: Yes: Calm, Mild Distress Eyes: Yes: Conjunctiva Clear HENT: Yes: Normocephalic Neck: Yes: Supple, Trachea Midline Respiratory: Yes: Regular, CTA Bilaterally Gastrointestinal: Yes: Normal Bowel Sounds, Soft Musculoskeletal: Yes: WNL Extremities: Yes: Other Wound/Incision: Yes: Dressing Dry and Intact Neurological: Yes: Alert, Oriented Psychiatric: Yes: Alert, Oriented Labs: CBC, BMP 03/22/20 06:50 03/22/20 06:50 Assessment/Plan 64 y.o. M w/ PMHx. of HTN, DM, PVD, RA, GERD, Iron Deficiency Anemia and Hx. of PE presented with L. foot gangrene. Pt. is s/p L. TMA L. foot TMA htn pna dm gerd h/o of pe plan continue abx wound care plan for surgery
[2020-03-22] MEDS ORDERED: KETOROLAC TROMETHAMINE 30 MG/1 ML VIAL ONE (09:23)
[2020-03-22] MEDS ORDERED: ACETAMINOPHEN INJECTION 100 ML IVPB ONE (09:25)
[2020-03-22] MEDS ORDERED: GLYCOPYRROLATE 0.2 MG/1 ML VIAL ONE (09:25)
[2020-03-22] MEDS ORDERED: NEOSTIGMINE METHYLSULFATE 0.5 MG/ML - 10 ML MDV ONE (09:25)
--- NOTE | 2020-03-22 09:36 | OP ---
Operative Note - Note: Operative Date: 03/22/20 Pre-Operative Diagnosis: left foot gangrene Operation: left below knee amputation Post-Operative Diagnosis: Same as Pre-op Surgeon: Torres Pearl Housekeeping Manager: Kandis Harper Anesthesia: General Estimated Blood Loss (mls): 100 Fluid Volume Replaced (mls): 1,000 Operative Report Dictated: Yes
[2020-03-22] MEDS: LEFLUNOMIDE 10 MG TABLET PO SCH (09:44)
[2020-03-22] MEDS: FOLIC ACID 1 MG TABLET (FP) PO SCH (09:44)
[2020-03-22] MEDS: FERROUS SO4 325 MG TABLET (FP) PO SCH ×2 (09:44→17:58)
[2020-03-22] MEDS: LOSARTAN POTASSIUM 25 MG TABLET PO SCH (09:44)
[2020-03-22] MEDS: AMINO ACIDS/PROTEIN HYDROLYS 30 ML LIQUID.PKT PO SCH ×2 (09:44→17:58)
[2020-03-22] MEDS: LORATADINE 10 MG TABLET PO SCH (09:44)
[2020-03-22] MEDS: CALCIUM (OYSTER SHELL) 500 MG TABLET (FP) PO SCH (09:45)
[2020-03-22] MEDS: PANTOPRAZOLE 20 MG TABLET PO SCH (09:45)
[2020-03-22] MEDS: BUDESONIDE/FORMETEROL FUMARATE 160/4.5 mcg INHALER IH SCH ×2 (09:45→22:26)
[2020-03-22] MEDS: METOPROLOL TARTRATE 25 MG TABLET (FP) PO SCH (09:45)
[2020-03-22] MEDS: MULTIVITAMINS (DAILY MVI) TABLET (FP) PO SCH (09:45)
[2020-03-22] MEDS: methylPREDNISolone 4 MG TABLET PO SCH (09:45)
[2020-03-22] MEDS ORDERED: ONDANSETRON 4 MG/2 ML VIAL IVPUSH PRN ×2 (09:54→11:24)
--- NOTE | 2020-03-22 10:01 | SURG ---
Surgery Automobile Radiator Mechanic Note Automobile Radiator Mechanic: Kandis Harper PA-C Date of Service: 03/22/20 Diagnosis: left foot gangrene Procedure: left below knee amputation I was present for the entirety of the operative procedure. For further detail, please refer to operative report. Visit type - Case Type Case Type: ED Admission - Emergency Emergency Visit: Yes ED Registration Date: 03/15/20 Care time: The patient presented to the Emergency Department on the above date and was hospitalized for further evaluation of their emergent condition. - New patient This patient is new to me today: Yes Date on this admission: 03/22/20
[2020-03-22] MEDS ORDERED: ALBUTEROL SO4 2.5/IPRATROPIUM 0.5 INH SOL 3 ML VIAL.NEB. NEB PRN (11:24)
[2020-03-22] MEDS ORDERED: ALBUTEROL SO4 HFA INHALER IH PRN (11:24)
--- NOTE | 2020-03-22 12:06 | PN ---
Progress Note (short form) - Note Progress Note: PULMONARY PATIENT DOWN FOR SURGERY Mariah CALVO MD
[2020-03-22] MEDS: LACTATED RINGERS SOLUTION 1,000 ML IV SCH (14:28)
[2020-03-22] MEDS: morphine SULFATE 4 MG/ML VIAL IVPUSH PRN ×2 (14:29→22:26)
[2020-03-22] MEDS ORDERED: INSULIN (NOVOLOG) ASPART 100 UNITS/ML 10ML VIAL ONE (17:37)
--- NOTE | 2020-03-22 18:26 | PN ---
Teaching Attending Note Name of Resident: Antione Saleem ATTENDING PHYSICIAN STATEMENT I saw and evaluated the patient. I reviewed the resident's note and discussed the case with the resident. I agree with the resident's findings and plan as documented. SUBJECTIVE: Patient seen and examined at bedside, on ZOsyn for OM of L foot s/p TMA, c/o L foot pain persistent, may need a ?BKA. VSS. OBJECTIVE: GENERAL: Awake, alert, and fully oriented, in no acute distress. EYES: PEERLA; EOMI; no scleral icterus. NECK: no JVD; no lymphadenopathy LUNGS: CTA B.L; no rales, rhonchi or wheezing HEART: RRR, normal S1 and S2 without murmur, rub or gallop. ABDOMEN: Soft, NT/ND +BS in all 4 quadrants . LOWER EXTREMITIES: L great toe amputation with serous/slightly milky discharge from wound site, able to bare weight, adequate pedal pulses+, ;LE warm; well- perfused no clubbing/cyanosis or edema PSYCHIATRIC: Cooperative. Good eye contact. Appropriate mood and affect. SKIN: Warm, dry, normal turgor, no rashes or lesions noted, normal capillary refill. Laboratory Results - last 24 hr 03/19/20 03/19/20 03/20/20 16:36 22:50 06:19 WBC RBC Hgb Hct MCV MCH MCHC RDW Plt Count MPV Absolute Neuts (auto) Neutrophils % Lymphocytes % Monocytes % Eosinophils % Basophils % Nucleated RBC % Sodium Potassium Chloride Carbon Dioxide Anion Gap BUN Creatinine Est GFR (CKD-EPI)AfAm Est GFR (CKD-EPI)NonAf POC Glucometer 168 161 78 Random Glucose Calcium Magnesium Total Bilirubin AST ALT Alkaline Phosphatase Total Protein Albumin 03/20/20 03/20/20 03/20/20 07:00 07:00 11:42 WBC 13.4 H RBC 3.18 L Hgb 8.9 L Hct 27.5 L MCV 86.6 MCH 27.9 MCHC 32.2 RDW 14.5 Plt Count 212 MPV 9.6 Absolute Neuts (auto) 10.5 H Neutrophils % 78.6 Lymphocytes % 8.8 D Monocytes % 9.1 Eosinophils % 2.7 D Basophils % 0.8 Nucleated RBC % 0 Sodium 138 Potassium 3.2 L Chloride 103 Carbon Dioxide 28 Anion Gap 7 L BUN 13.9 Creatinine 0.8 Est GFR (CKD-EPI)AfAm 110.96 Est GFR (CKD-EPI)NonAf 95.74 POC Glucometer 117 Random Glucose 77 Calcium 7.8 L Magnesium 1.7 L Total Bilirubin 0.8 AST 70 H ALT 40 Alkaline Phosphatase 98 Total Protein 5.4 L Albumin 1.9 L Active Medications Generic Name Dose Route Start Last Admin Trade Name Freq PRN Reason Stop Dose Admin Acetaminophen 325 mg 03/17/20 20:58 03/20/20 06:21 Tylenol - PO 325 mg Q4H PRN Administration FEVER Albuterol Sulfate 2 puff 03/15/20 13:45 Ventolin Hfa Inhaler - IH Q4H PRN SHORTNESS OF BREATH Albuterol/Ipratropium 1 amp 03/19/20 09:23 Duoneb - NEB Q4H PRN SHORTNESS OF BREATH Amino Acids 30 ml 03/17/20 17:30 03/20/20 07:47 Prosource No Carb Liquid Pkt PO 30 ml BID@0800,1730 ZAIN Administration Apixaban 5 mg 03/15/20 10:00 03/20/20 10:08 Eliquis - PO 5 mg BID ZAIN Administration Atorvastatin Calcium 20 mg 03/15/20 22:00 03/19/20 22:53 Lipitor - PO 20 mg HS ZAIN Administration Budesonide/Formoterol Fumarate 2 puff 03/20/20 22:00 Symbicort 160/4.5mcg - IH BID ZAIN Calcium Carbonate 500 mg 03/15/20 10:00 03/20/20 10:08 Os-Scott 500mg - PO 500 mg DAILY ZAIN Administration Docusate Sodium 100 mg 03/19/20 14:00 03/20/20 13:47 Colace - PO 100 mg TID ZAIN Administration Ferrous Sulfate 325 mg 03/19/20 10:00 03/20/20 10:08 Feosol - PO 325 mg BID ZAIN Administration Folic Acid 1 mg 03/19/20 10:00 03/20/20 10:08 Folic Acid - PO 1 mg DAILY ZAIN Administration Lactated Ringer's 1,000 ml in 1,000 mls @ 75 mls/hr 03/18/20 09:15 03/20/20 10:09 Lactated Ringers Solution IV Not Given ASDIR ZAIN Piperacillin Sod/Tazobactam 50 mls @ 100 mls/hr 03/18/20 18:00 03/20/20 10:07 Sod 3.375 gm/ Dextrose IVPB 100 mls/hr Q8H-IV ZAIN Administration Protocol Insulin Aspart 1 vial 03/18/20 16:30 03/20/20 11:43 Novolog Vial Sliding Scale - SQ Not Given ACHS ZAIN Protocol Insulin Detemir 10 units 03/15/20 22:00 03/19/20 22:53 Levemir Vial SQ 10 units HS ZAIN Administration Leflunomide 10 mg 03/15/20 10:00 03/20/20 10:09 Arava - PO 10 mg DAILY ZAIN Administration Loratadine 10 mg 03/15/20 10:00 03/20/20 10:08 Claritin - PO 10 mg DAILY ZAIN Administration Losartan Potassium 25 mg 03/15/20 10:00 03/20/20 10:08 Cozaar - PO 25 mg DAILY ZAIN Administration Methylprednisolone 4 mg 03/15/20 10:00 03/20/20 10:09 Medrol - PO 4 mg DAILY ZAIN Administration Metoprolol Tartrate 25 mg 03/15/20 10:00 03/20/20 10:08 Lopressor - PO 25 mg DAILY ZAIN Administration Morphine Sulfate 2 mg 03/19/20 12:34 03/20/20 07:46 Morphine Sulfate IVPUSH 2 mg Q6H PRN Administration PAIN LEVEL 7 - 10 Multivitamins/Minerals/Vitamin C 1 tab 03/19/20 10:00 03/20/20 10:08 Tab-A-Vit - PO 1 tab DAILY ZAIN Administration Ondansetron HCl 4 mg 03/15/20 09:41 Zofran Injection IVPUSH Q6H PRN NAUSEA AND/OR VOMITING Pantoprazole Sodium 40 mg 03/20/20 11:39 Protonix - PO DAILY ZAIN Tramadol HCl 50 mg 03/19/20 12:33 03/20/20 13:46 Ultram - PO 50 mg Q6H PRN Administration PAIN LEVEL 4 - 6 ASSESSMENT AND PLAN: 64 M 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 for L TMA, still infected will likely need BKA, will follow Duonebs/Steroids for COPDE/Emphysema, Pulmonary evaluation Replace electrolytes ID following Podiatry following Eliquis for PE/DVT ppx
--- NOTE | 2020-03-22 18:29 | PN ---
Teaching Attending Note Name of Resident: Antione Saleem ATTENDING PHYSICIAN STATEMENT I saw and evaluated the patient. I reviewed the resident's note and discussed the case with the resident. I agree with the resident's findings and plan as documented. SUBJECTIVE: Patient seen and examined at bedside, on ZOsyn for OM of L foot s/p TMA, agreed for BKA scheduled for tomorrow. VSS. OBJECTIVE: GENERAL: Awake, alert, and fully oriented, in no acute distress. EYES: PEERLA; EOMI; no scleral icterus. NECK: no JVD; no lymphadenopathy LUNGS: CTA B.L; no rales, rhonchi or wheezing HEART: RRR, normal S1 and S2 without murmur, rub or gallop. ABDOMEN: Soft, NT/ND +BS in all 4 quadrants . LOWER EXTREMITIES: L great toe amputation with serous/slightly milky discharge from wound site, able to bare weight, adequate pedal pulses+, ;LE warm; well- perfused no clubbing/cyanosis or edema PSYCHIATRIC: Cooperative. Good eye contact. Appropriate mood and affect. SKIN: Warm, dry, normal turgor, no rashes or lesions noted, normal capillary refill. Laboratory Results - last 24 hr 03/19/20 03/19/20 03/20/20 16:36 22:50 06:19 WBC RBC Hgb Hct MCV MCH MCHC RDW Plt Count MPV Absolute Neuts (auto) Neutrophils % Lymphocytes % Monocytes % Eosinophils % Basophils % Nucleated RBC % Sodium Potassium Chloride Carbon Dioxide Anion Gap BUN Creatinine Est GFR (CKD-EPI)AfAm Est GFR (CKD-EPI)NonAf POC Glucometer 168 161 78 Random Glucose Calcium Magnesium Total Bilirubin AST ALT Alkaline Phosphatase Total Protein Albumin 03/20/20 03/20/20 03/20/20 07:00 07:00 11:42 WBC 13.4 H RBC 3.18 L Hgb 8.9 L Hct 27.5 L MCV 86.6 MCH 27.9 MCHC 32.2 RDW 14.5 Plt Count 212 MPV 9.6 Absolute Neuts (auto) 10.5 H Neutrophils % 78.6 Lymphocytes % 8.8 D Monocytes % 9.1 Eosinophils % 2.7 D Basophils % 0.8 Nucleated RBC % 0 Sodium 138 Potassium 3.2 L Chloride 103 Carbon Dioxide 28 Anion Gap 7 L BUN 13.9 Creatinine 0.8 Est GFR (CKD-EPI)AfAm 110.96 Est GFR (CKD-EPI)NonAf 95.74 POC Glucometer 117 Random Glucose 77 Calcium 7.8 L Magnesium 1.7 L Total Bilirubin 0.8 AST 70 H ALT 40 Alkaline Phosphatase 98 Total Protein 5.4 L Albumin 1.9 L Active Medications Generic Name Dose Route Start Last Admin Trade Name Freq PRN Reason Stop Dose Admin Acetaminophen 325 mg 03/17/20 20:58 03/20/20 06:21 Tylenol - PO 325 mg Q4H PRN Administration FEVER Albuterol Sulfate 2 puff 03/15/20 13:45 Ventolin Hfa Inhaler - IH Q4H PRN SHORTNESS OF BREATH Albuterol/Ipratropium 1 amp 03/19/20 09:23 Duoneb - NEB Q4H PRN SHORTNESS OF BREATH Amino Acids 30 ml 03/17/20 17:30 03/20/20 07:47 Prosource No Carb Liquid Pkt PO 30 ml BID@0800,1730 ZAIN Administration Apixaban 5 mg 03/15/20 10:00 03/20/20 10:08 Eliquis - PO 5 mg BID ZAIN Administration Atorvastatin Calcium 20 mg 03/15/20 22:00 03/19/20 22:53 Lipitor - PO 20 mg HS ZAIN Administration Budesonide/Formoterol Fumarate 2 puff 03/20/20 22:00 Symbicort 160/4.5mcg - IH BID ZAIN Calcium Carbonate 500 mg 03/15/20 10:00 03/20/20 10:08 Os-Scott 500mg - PO 500 mg DAILY ZAIN Administration Docusate Sodium 100 mg 03/19/20 14:00 03/20/20 13:47 Colace - PO 100 mg TID ZAIN Administration Ferrous Sulfate 325 mg 03/19/20 10:00 03/20/20 10:08 Feosol - PO 325 mg BID ZAIN Administration Folic Acid 1 mg 03/19/20 10:00 03/20/20 10:08 Folic Acid - PO 1 mg DAILY ZAIN Administration Lactated Ringer's 1,000 ml in 1,000 mls @ 75 mls/hr 03/18/20 09:15 03/20/20 10:09 Lactated Ringers Solution IV Not Given ASDIR ZAIN Piperacillin Sod/Tazobactam 50 mls @ 100 mls/hr 03/18/20 18:00 03/20/20 10:07 Sod 3.375 gm/ Dextrose IVPB 100 mls/hr Q8H-IV ZAIN Administration Protocol Insulin Aspart 1 vial 03/18/20 16:30 03/20/20 11:43 Novolog Vial Sliding Scale - SQ Not Given ACHS [facility] Protocol Insulin Detemir 10 units 03/15/20 22:00 03/19/20 22:53 Levemir Vial SQ 10 units HS ZAIN Administration Leflunomide 10 mg 03/15/20 10:00 03/20/20 10:09 Arava - PO 10 mg DAILY ZAIN Administration Loratadine 10 mg 03/15/20 10:00 03/20/20 10:08 Claritin - PO 10 mg DAILY ZAIN Administration Losartan Potassium 25 mg 03/15/20 10:00 03/20/20 10:08 Cozaar - PO 25 mg DAILY ZAIN Administration Methylprednisolone 4 mg 03/15/20 10:00 03/20/20 10:09 Medrol - PO 4 mg DAILY ZAIN Administration Metoprolol Tartrate 25 mg 03/15/20 10:00 03/20/20 10:08 Lopressor - PO 25 mg DAILY ZAIN Administration Morphine Sulfate 2 mg 03/19/20 12:34 03/20/20 07:46 Morphine Sulfate IVPUSH 2 mg Q6H PRN Administration PAIN LEVEL 7 - 10 Multivitamins/Minerals/Vitamin C 1 tab 03/19/20 10:00 03/20/20 10:08 Tab-A-Vit - PO 1 tab DAILY ZAIN Administration Ondansetron HCl 4 mg 03/15/20 09:41 Zofran Injection IVPUSH Q6H PRN NAUSEA AND/OR VOMITING Pantoprazole Sodium 40 mg 03/20/20 11:39 Protonix - PO DAILY ZAIN Tramadol HCl 50 mg 03/19/20 12:33 03/20/20 13:46 Ultram - PO 50 mg Q6H PRN Administration PAIN LEVEL 4 - 6 ASSESSMENT AND PLAN: 64 M 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 for L TMA, scheduled for BKA tomorrow morning Duonebs/Steroids for COPDE/Emphysema, Pulmonary evaluation NPO MN, hold Eliquis Strict glycemic control Replace electrolytes ID following Podiatry following Eliquis for PE/DVT ppx
--- NOTE | 2020-03-22 18:31 | PN ---
Physical Exam: ATTENDING PHYSICIAN STATEMENT I saw and evaluated the patient. I reviewed the resident's note and discussed the case with the resident. I agree with the resident's findings and plan as documented. SUBJECTIVE: Patient seen and examined at bedside, scheduled for BKA today, cont. Zosyn. Will need PT/rehab post-op. VSS. OBJECTIVE: GENERAL: Awake, alert, and fully oriented, in no acute distress. EYES: PEERLA; EOMI; no scleral icterus. NECK: no JVD; no lymphadenopathy LUNGS: CTA B.L; no rales, rhonchi or wheezing HEART: RRR, normal S1 and S2 without murmur, rub or gallop. ABDOMEN: Soft, NT/ND +BS in all 4 quadrants . LOWER EXTREMITIES: L great toe amputation with serous/slightly milky discharge from wound site, able to bare weight, adequate pedal pulses+, ;LE warm; well- perfused no clubbing/cyanosis or edema PSYCHIATRIC: Cooperative. Good eye contact. Appropriate mood and affect. SKIN: Warm, dry, normal turgor, no rashes or lesions noted, normal capillary refill. Laboratory Results - last 24 hr 03/19/20 03/19/20 03/20/20 16:36 22:50 06:19 WBC RBC Hgb Hct MCV MCH MCHC RDW Plt Count MPV Absolute Neuts (auto) Neutrophils % Lymphocytes % Monocytes % Eosinophils % Basophils % Nucleated RBC % Sodium Potassium Chloride Carbon Dioxide Anion Gap BUN Creatinine Est GFR (CKD-EPI)AfAm Est GFR (CKD-EPI)NonAf POC Glucometer 168 161 78 Random Glucose Calcium Magnesium Total Bilirubin AST ALT Alkaline Phosphatase Total Protein Albumin 03/20/20 03/20/20 03/20/20 07:00 07:00 11:42 WBC 13.4 H RBC 3.18 L Hgb 8.9 L Hct 27.5 L MCV 86.6 MCH 27.9 MCHC 32.2 RDW 14.5 Plt Count 212 MPV 9.6 Absolute Neuts (auto) 10.5 H Neutrophils % 78.6 Lymphocytes % 8.8 D Monocytes % 9.1 Eosinophils % 2.7 D Basophils % 0.8 Nucleated RBC % 0 Sodium 138 Potassium 3.2 L Chloride 103 Carbon Dioxide 28 Anion Gap 7 L BUN 13.9 Creatinine 0.8 Est GFR (CKD-EPI)AfAm 110.96 Est GFR (CKD-EPI)NonAf 95.74 POC Glucometer 117 Random Glucose 77 Calcium 7.8 L Magnesium 1.7 L Total Bilirubin 0.8 AST 70 H ALT 40 Alkaline Phosphatase 98 Total Protein 5.4 L Albumin 1.9 L Active Medications Generic Name Dose Route Start Last Admin Trade Name Freq PRN Reason Stop Dose Admin Acetaminophen 325 mg 03/17/20 20:58 03/20/20 06:21 Tylenol - PO 325 mg Q4H PRN Administration FEVER Albuterol Sulfate 2 puff 03/15/20 13:45 Ventolin Hfa Inhaler - IH Q4H PRN SHORTNESS OF BREATH Albuterol/Ipratropium 1 amp 03/19/20 09:23 Duoneb - NEB Q4H PRN SHORTNESS OF BREATH Amino Acids 30 ml 03/17/20 17:30 03/20/20 07:47 Prosource No Carb Liquid Pkt PO 30 ml BID@0800,1730 ZAIN Administration Apixaban 5 mg 03/15/20 10:00 03/20/20 10:08 Eliquis - PO 5 mg BID ZAIN Administration Atorvastatin Calcium 20 mg 03/15/20 22:00 03/19/20 22:53 Lipitor - PO 20 mg HS ZAIN Administration Budesonide/Formoterol Fumarate 2 puff 03/20/20 22:00 Symbicort 160/4.5mcg - IH BID ZAIN Calcium Carbonate 500 mg 03/15/20 10:00 03/20/20 10:08 Os-Scott 500mg - PO 500 mg DAILY ZAIN Administration Docusate Sodium 100 mg 03/19/20 14:00 03/20/20 13:47 Colace - PO 100 mg TID ZAIN Administration Ferrous Sulfate 325 mg 03/19/20 10:00 03/20/20 10:08 Feosol - PO 325 mg BID ZAIN Administration Folic Acid 1 mg 03/19/20 10:00 03/20/20 10:08 Folic Acid - PO 1 mg DAILY ZAIN Administration Lactated Ringer's 1,000 ml in 1,000 mls @ 75 mls/hr 03/18/20 09:15 03/20/20 10:09 Lactated Ringers Solution IV Not Given ASDIR ZAIN Piperacillin Sod/Tazobactam 50 mls @ 100 mls/hr 03/18/20 18:00 03/20/20 10:07 Sod 3.375 gm/ Dextrose IVPB 100 mls/hr Q8H-IV ZAIN Administration Protocol Insulin Aspart 1 vial 03/18/20 16:30 03/20/20 11:43 Novolog Vial Sliding Scale - SQ Not Given ACHS [facility] Protocol Insulin Detemir 10 units 03/15/20 22:00 03/19/20 22:53 Levemir Vial SQ 10 units HS ZAIN Administration Leflunomide 10 mg 03/15/20 10:00 03/20/20 10:09 Arava - PO 10 mg DAILY ZAIN Administration Loratadine 10 mg 03/15/20 10:00 03/20/20 10:08 Claritin - PO 10 mg DAILY ZAIN Administration Losartan Potassium 25 mg 03/15/20 10:00 03/20/20 10:08 Cozaar - PO 25 mg DAILY ZAIN Administration Methylprednisolone 4 mg 03/15/20 10:00 03/20/20 10:09 Medrol - PO 4 mg DAILY ZAIN Administration Metoprolol Tartrate 25 mg 03/15/20 10:00 03/20/20 10:08 Lopressor - PO 25 mg DAILY ZAIN Administration Morphine Sulfate 2 mg 03/19/20 12:34 03/20/20 07:46 Morphine Sulfate IVPUSH 2 mg Q6H PRN Administration PAIN LEVEL 7 - 10 Multivitamins/Minerals/Vitamin C 1 tab 03/19/20 10:00 03/20/20 10:08 Tab-A-Vit - PO 1 tab DAILY ZAIN Administration Ondansetron HCl 4 mg 03/15/20 09:41 Zofran Injection IVPUSH Q6H PRN NAUSEA AND/OR VOMITING Pantoprazole Sodium 40 mg 03/20/20 11:39 Protonix - PO DAILY ZAIN Tramadol HCl 50 mg 03/19/20 12:33 03/20/20 13:46 Ultram - PO 50 mg Q6H PRN Administration PAIN LEVEL 4 - 6 ASSESSMENT AND PLAN: 64 M L foot osteomyelitis s/p L TMA requiring BKA L foot gangrene Uncontrolled T2DM with DM neuropathy Suspected hypercoaguable state HTN HLD Rheumatoid arthritis GERD JAMES H/o PE on Eliquis CAD Plan: IV Zosyn cont., for BKA surgery today Duonebs/Steroids for COPDE/Emphysema, Pulmonary evaluation Cont. NPO, hold AC Strict glycemic control Replace electrolytes ID following Podiatry following Cont. to hold AC until cleared by surgery when to restart post-op Visit type - Emergency Visit Emergency Visit: Yes ED Registration Date: 03/15/20 Care time: The patient presented to the Emergency Department on the above date and was hospitalized for further evaluation of their emergent condition. - New Patient This patient is new to me today: No - Critical Care Critical Care patient: No - Discharge Referral Referred to [facility] Med P.C.: No
[2020-03-22] MEDS ORDERED: INSULIN (LEVEMIR) 100 UNITS/ML UNITS SQ SCH (22:00)
[2020-03-22] MEDS: ATORVASTATIN CA 20 MG TABLET (FP) PO SCH (22:25)
[2020-03-23] MEDS ORDERED: DEXTROSE 5%-WATER - 50 ML IVPB ONE ×3 (01:00→17:30)
[2020-03-23] MEDS ORDERED: PIPERACILLIN/TAZOBACTAM 3.375 GM VIAL IVPB ONE ×3 (01:00→17:30)
[2020-03-23] MEDS: PIPERACILLIN/TAZOB 3.375 GM 3.375 GM in DEXTROSE 5%-WATER - 50 ML IVPB SCH ×3 (01:30→17:50)
[2020-03-23] MEDS: INSULIN SLIDING SCALE (NOVOLOG) 1 VIAL SQ SCH ×4 (06:30→21:53)
[2020-03-23] MEDS: DOCUSATE SODIUM 100 MG CAPSULE (FP) PO SCH ×3 (06:30→21:53)
[2020-03-23] MEDS: INSULIN (LEVEMIR) 100 UNITS/ML UNITS SQ SCH ×3 (07:54→22:26)
[2020-03-23] MEDS: AMINO ACIDS/PROTEIN HYDROLYS 30 ML LIQUID.PKT PO SCH ×2 (09:32→17:50)
[2020-03-23] MEDS: PANTOPRAZOLE 20 MG TABLET PO SCH (09:32)
[2020-03-23] MEDS: LORATADINE 10 MG TABLET PO SCH (09:33)
[2020-03-23] MEDS: LEFLUNOMIDE 10 MG TABLET PO SCH (09:33)
[2020-03-23] MEDS: MULTIVITAMINS (DAILY MVI) TABLET (FP) PO SCH (09:33)
[2020-03-23] MEDS: FERROUS SO4 325 MG TABLET (FP) PO SCH ×2 (09:33→17:51)
[2020-03-23] MEDS: LOSARTAN POTASSIUM 25 MG TABLET PO SCH (09:33)
[2020-03-23] MEDS: METOPROLOL TARTRATE 25 MG TABLET (FP) PO SCH (09:33)
[2020-03-23] MEDS: FOLIC ACID 1 MG TABLET (FP) PO SCH (09:34)
[2020-03-23] MEDS: CALCIUM (OYSTER SHELL) 500 MG TABLET (FP) PO SCH (09:34)
[2020-03-23] MEDS: BUDESONIDE/FORMETEROL FUMARATE 160/4.5 mcg INHALER IH SCH ×2 (11:28→21:54)
[2020-03-23] MEDS: methylPREDNISolone 4 MG TABLET PO SCH (11:28)
[2020-03-23] MEDS: LACTATED RINGERS SOLUTION 1,000 ML IV SCH (11:33)
[2020-03-23] MEDS ORDERED: INSULIN (NOVOLOG) ASPART 100 UNITS/ML 10ML VIAL ONE (11:38)
[2020-03-23] MEDS: morphine SULFATE 4 MG/ML VIAL IVPUSH PRN ×2 (11:52→19:11)
[2020-03-23 12:38] LABS: BASO % 0.7 % (0-2.0); EOS % 2.8 % (0-4.5); HEMATOCRIT 26.4 % (35.4-49); HEMOGLOBIN 8.5 GM/dL (11.7-16.9); LYMPH % 14.4 % (8-40); MCH 27.6 pg (25.7-33.7); MCHC 32.3 g/dl (32.0-35.9); MEAN CELL VOLUME 85.5 fl (80-96); MEAN PLT VOLUME 8.3 fl (7.5-11.1); NEUT % 72.1 % (42.8-82.8); PLATELET COUNT 434 K/MM3 (134-434); RBC 3.09 M/mm3 (4.00-5.60); RDW 14.9 % (11.9-15.9)
--- NOTE | 2020-03-23 12:42 | PN ---
Progress Note (short form) - Note Progress Note: PULMONARY s/p L BKA. Breathing better. Still some cough. No fevers. Vital Signs Period Temp Pulse Resp BP Sys/Dawson Pulse Ox Last 24 Hr 97 F-98.3 F 76-84 18-20 120-132/68-75 94-100 Gen: NAD at rest Heart: RRR Lung: basilar rales, rhonchi Abd: soft, nontender Ext: no edema CBC, BMP 03/23/20 11:50 Active Medications Acetaminophen (Tylenol -) 325 mg PO Q4H PRN PRN Reason: FEVER Albuterol Sulfate (Ventolin Hfa Inhaler -) 2 puff IH Q4H PRN PRN Reason: SHORTNESS OF BREATH Albuterol/Ipratropium (Duoneb -) 1 amp NEB Q4H PRN PRN Reason: SHORTNESS OF BREATH Amino Acids (Prosource No Carb Liquid Pkt) 30 ml PO BID@0800,1730 [facility] Last Admin: 03/23/20 09:32 Dose: 30 ml Documented by: Atorvastatin Calcium (Lipitor -) 20 mg PO HS [facility] Last Admin: 03/22/20 22:25 Dose: 20 mg Documented by: Budesonide/Formoterol Fumarate (Symbicort 160/4.5mcg -) 2 puff IH BID [facility] Last Admin: 03/23/20 11:28 Dose: 2 puff Documented by: Calcium Carbonate (Os-Scott 500mg -) 500 mg PO DAILY [facility] Last Admin: 03/23/20 09:34 Dose: 500 mg Documented by: Docusate Sodium (Colace -) 100 mg PO TID [facility] Last Admin: 03/23/20 06:30 Dose: 100 mg Documented by: Fentanyl (Sublimaze Injection -) 50 mcg IVPUSH [id number] PRN PRN Reason: PAIN-PACU ORDER X 4 DOSES ONLY Ferrous Sulfate (Feosol -) 325 mg PO BIDWM [facility] Last Admin: 03/23/20 09:33 Dose: 325 mg Documented by: Folic Acid (Folic Acid -) 1 mg PO DAILY [facility] Last Admin: 03/23/20 09:34 Dose: 1 mg Documented by: Lactated Ringer's (Lactated Ringers Solution) 1,000 mls @ 125 mls/hr IV ASDIR [facility] Last Admin: 03/23/20 11:33 Dose: 125 mls/hr Documented by: Piperacillin Sod/Tazobactam (Sod 3.375 gm/ Dextrose) 50 mls @ 100 mls/hr IVPB Q8H-IV [facility]; Protocol Last Admin: 03/23/20 09:35 Dose: 100 mls/hr Documented by: Insulin Aspart (Novolog Vial Sliding Scale -) 1 vial SQ ACHS [facility]; Protocol Last Admin: 03/23/20 11:43 Dose: 4 units Documented by: Insulin Detemir (Levemir Vial) 10 units SQ BID [facility] Last Admin: 03/23/20 09:29 Dose: Not Given Documented by: Leflunomide (Arava -) 10 mg PO DAILY [facility] Last Admin: 03/23/20 09:33 Dose: 10 mg Documented by: Loratadine (Claritin -) 10 mg PO DAILY [facility] Last Admin: 03/23/20 09:33 Dose: 10 mg Documented by: Losartan Potassium (Cozaar -) 25 mg PO DAILY [facility] Last Admin: 03/23/20 09:33 Dose: 25 mg Documented by: Methylprednisolone (Medrol -) 4 mg PO DAILY [facility] Last Admin: 03/23/20 11:28 Dose: 4 mg Documented by: Metoprolol Tartrate (Lopressor -) 25 mg PO DAILY [facility] Last Admin: 03/23/20 09:33 Dose: 25 mg Documented by: Morphine Sulfate (Morphine Sulfate) 4 mg IVPUSH Q4H PRN PRN Reason: PAIN LEVEL 6-10 Last Admin: 03/23/20 11:52 Dose: 4 mg Documented by: Multivitamins/Minerals/Vitamin C (Tab-A-Vit -) 1 tab PO DAILY [facility] Last Admin: 03/23/20 09:33 Dose: 1 tab Documented by: Ondansetron HCl (Zofran Injection) 4 mg IVPUSH Q6H PRN PRN Reason: NAUSEA AND/OR VOMITING Ondansetron HCl (Zofran Injection) 4 mg IVPUSH Q6H PRN PRN Reason: NAUSEA AND/OR VOMITING Pantoprazole Sodium (Protonix -) 40 mg PO DAILY [facility] Last Admin: 03/23/20 09:32 Dose: 40 mg Documented by: Tramadol HCl (Ultram -) 50 mg PO Q6H PRN PRN Reason: PAIN LEVEL 4 - 6 A/P Pneumonia Interstitial Lung Disease Bronchiectasis h/o PE PAD HTN DM Hyperlipidemia s/p R BKA - continue antibiotics - inhaled bronchodilators - O2 to keep SpO2 >90% - continue anticoagulation
[2020-03-23 13:03] LABS: ALBUMIN 1.8 g/dl (3.4-5.0); BILIRUBIN,TOTAL 0.7 mg/dL (0.2-1); BLOOD UREA NITROGEN 13.1 mg/dL (7-18); CREATININE 0.8 mg/dL (0.55-1.3); POTASSIUM 3.9 mmol/L (3.5-5.1); TOT PROT 5.4 g/dl (6.4-8.2)
--- NOTE | 2020-03-23 14:17 | PN ---
Physical Exam: SUBJECTIVE: Patient seen and examined at bedside, s/p L BKA POD#1, no fevers overnight, tolerated procedure well. VSS. OBJECTIVE: GENERAL: Awake, alert, and fully oriented, in no acute distress. EYES: PEERLA; EOMI; no scleral icterus. NECK: no JVD; no lymphadenopathy LUNGS: CTA B.L; no rales, rhonchi or wheezing HEART: RRR, normal S1 and S2 without murmur, rub or gallop. ABDOMEN: Soft, NT/ND +BS in all 4 quadrants . LOWER EXTREMITIES: L BKA with cast/wound dressing, RLE venous stasis, no RLE edema PSYCHIATRIC: Cooperative. Good eye contact. Appropriate mood and affect. Vital Signs Period Temp Pulse Resp BP Sys/Dawson Pulse Ox Last 24 Hr 97 F-98.3 F 76-84 18-20 120-132/64-75 94-100 Laboratory Results - last 24 hr 03/22/20 03/22/20 03/23/20 16:53 22:18 06:24 WBC RBC Hgb Hct MCV MCH MCHC RDW Plt Count MPV Absolute Neuts (auto) Neutrophils % Lymphocytes % Monocytes % Eosinophils % Basophils % Nucleated RBC % Sodium Potassium Chloride Carbon Dioxide Anion Gap BUN Creatinine Est GFR (CKD-EPI)AfAm Est GFR (CKD-EPI)NonAf POC Glucometer 177 383 235 Random Glucose Calcium Total Bilirubin AST ALT Alkaline Phosphatase Total Protein Albumin 03/23/20 03/23/20 03/23/20 11:32 11:42 11:50 WBC 14.0 H RBC 3.09 L Hgb 8.5 L Hct 26.4 L MCV 85.5 MCH 27.6 MCHC 32.3 RDW 14.9 Plt Count 434 D MPV 8.3 Absolute Neuts (auto) 10.1 H Neutrophils % 72.1 Lymphocytes % 14.4 D Monocytes % 10.0 Eosinophils % 2.8 Basophils % 0.7 Nucleated RBC % 0 Sodium 138 Potassium 3.9 Chloride 105 Carbon Dioxide 25 Anion Gap 7 L BUN 13.1 Creatinine 0.8 Est GFR (CKD-EPI)AfAm 110.96 Est GFR (CKD-EPI)NonAf 95.74 POC Glucometer 210 Random Glucose 207 H Calcium 8.0 L Total Bilirubin 0.7 AST 42 H ALT 44 Alkaline Phosphatase 149 H Total Protein 5.4 L Albumin 1.8 L Active Medications Generic Name Dose Route Start Last Admin Trade Name Freq PRN Reason Stop Dose Admin Acetaminophen 325 mg 03/22/20 11:24 Tylenol - PO Q4H PRN FEVER Albuterol Sulfate 2 puff 03/22/20 11:24 Ventolin Hfa Inhaler - IH Q4H PRN SHORTNESS OF BREATH Albuterol/Ipratropium 1 amp 03/22/20 11:24 Duoneb - NEB Q4H PRN SHORTNESS OF BREATH Amino Acids 30 ml 03/22/20 17:30 03/23/20 09:32 Prosource No Carb Liquid Pkt PO 30 ml BID@0800,1730 ZAIN Administration Atorvastatin Calcium 20 mg 03/22/20 22:00 03/22/20 22:25 Lipitor - PO 20 mg HS ZAIN Administration Budesonide/Formoterol Fumarate 2 puff 03/22/20 22:00 03/23/20 11:28 Symbicort 160/4.5mcg - IH 2 puff BID ZAIN Administration Calcium Carbonate 500 mg 03/23/20 10:00 03/23/20 09:34 Os-Scott 500mg - PO 500 mg DAILY ZAIN Administration Docusate Sodium 100 mg 03/22/20 14:00 03/23/20 13:22 Colace - PO 100 mg TID ZAIN Administration Fentanyl 50 mcg 03/22/20 09:54 Sublimaze Injection - IVPUSH [id number] PRN PAIN-PACU ORDER X 4 DOSES ONLY Ferrous Sulfate 325 mg 03/22/20 17:30 03/23/20 09:33 Feosol - PO 325 mg BIDWM ZAIN Administration Folic Acid 1 mg 03/23/20 10:00 03/23/20 09:34 Folic Acid - PO 1 mg DAILY ZAIN Administration Piperacillin Sod/Tazobactam 50 mls @ 100 mls/hr 03/22/20 18:00 03/23/20 09:35 Sod 3.375 gm/ Dextrose IVPB 100 mls/hr Q8H-IV ZAIN Administration Protocol Insulin Aspart 1 vial 03/22/20 16:30 03/23/20 11:43 Novolog Vial Sliding Scale - SQ 4 units ACHS ZAIN Administration Protocol Insulin Detemir 10 units 03/23/20 07:30 03/23/20 09:29 Levemir Vial SQ Not Given BID ZAIN Leflunomide 10 mg 03/23/20 10:00 03/23/20 09:33 Arava - PO 10 mg DAILY ZAIN Administration Loratadine 10 mg 03/23/20 10:00 03/23/20 09:33 Claritin - PO 10 mg DAILY ZAIN Administration Losartan Potassium 25 mg 03/23/20 10:00 03/23/20 09:33 Cozaar - PO 25 mg DAILY ZAIN Administration Methylprednisolone 4 mg 03/23/20 10:00 03/23/20 11:28 Medrol - PO 4 mg DAILY ZAIN Administration Metoprolol Tartrate 25 mg 03/23/20 10:00 03/23/20 09:33 Lopressor - PO 25 mg DAILY ZAIN Administration Morphine Sulfate 4 mg 03/22/20 09:38 03/23/20 11:52 Morphine Sulfate IVPUSH 4 mg Q4H PRN Administration PAIN LEVEL 6-10 Multivitamins/Minerals/Vitamin C 1 tab 03/23/20 10:00 03/23/20 09:33 Tab-A-Vit - PO 1 tab DAILY ZAIN Administration Ondansetron HCl 4 mg 03/22/20 09:54 Zofran Injection IVPUSH Q6H PRN NAUSEA AND/OR VOMITING Ondansetron HCl 4 mg 03/22/20 11:24 Zofran Injection IVPUSH Q6H PRN NAUSEA AND/OR VOMITING Pantoprazole Sodium 40 mg 03/23/20 10:00 03/23/20 09:32 Protonix - PO 40 mg DAILY ZAIN Administration Tramadol HCl 50 mg 03/22/20 11:24 Ultram - PO Q6H PRN PAIN LEVEL 4 - 6 ASSESSMENT/PLAN: 64 M L foot osteomyelitis s/p L BKA POD#1 Uncontrolled T2DM with DM neuropathy Suspected hypercoaguable state HTN HLD Rheumatoid arthritis GERD JAMES H/o PE on Eliquis CAD Plan: IV Zosyn cont., will need aggressive wound care, PT/rehab for gait training, fit for prosthetic leg Duonebs/Steroids for COPDE/Emphysema, Pulmonary following Restart Eliquis (OK by Surgery) Strict glycemic control Replace electrolytes ID following Podiatry following Surgery following Visit type - Emergency Visit Emergency Visit: Yes ED Registration Date: 03/15/20 Care time: The patient presented to the Emergency Department on the above date and was hospitalized for further evaluation of their emergent condition. - New Patient This patient is new to me today: No - Critical Care Critical Care patient: No - Discharge Referral Referred to [facility] Med P.C.: No
[2020-03-23 14:22] LABS: ANISOCYTOSIS 2+; MACROCYTOSIS 0; PLATELET ESTIMATE NORMAL
--- NOTE | 2020-03-23 16:29 | PN ---
Progress Note, Physician History of Present Illness: Pt doing well. Mild cough but improving. Denies SOB. Afebrile, pain controlled. s/p BKA. - Current Medication List Current Medications: Active Medications Acetaminophen (Tylenol -) 325 mg PO Q4H PRN PRN Reason: FEVER Albuterol Sulfate (Ventolin Hfa Inhaler -) 2 puff IH Q4H PRN PRN Reason: SHORTNESS OF BREATH Albuterol/Ipratropium (Duoneb -) 1 amp NEB Q4H PRN PRN Reason: SHORTNESS OF BREATH Amino Acids (Prosource No Carb Liquid Pkt) 30 ml PO BID@0800,1730 REPLACED BY [facility] Last Admin: 03/23/20 09:32 Dose: 30 ml Documented by: Apixaban (Eliquis -) 5 mg PO BID REPLACED BY [facility] Atorvastatin Calcium (Lipitor -) 20 mg PO HS REPLACED BY [facility] Last Admin: 03/22/20 22:25 Dose: 20 mg Documented by: Budesonide/Formoterol Fumarate (Symbicort 160/4.5mcg -) 2 puff IH BID REPLACED BY [facility] Last Admin: 03/23/20 11:28 Dose: 2 puff Documented by: Calcium Carbonate (Os-Scott 500mg -) 500 mg PO DAILY REPLACED BY [facility] Last Admin: 03/23/20 09:34 Dose: 500 mg Documented by: Docusate Sodium (Colace -) 100 mg PO TID REPLACED BY [facility] Last Admin: 03/23/20 13:22 Dose: 100 mg Documented by: Fentanyl (Sublimaze Injection -) 50 mcg IVPUSH [id number] PRN PRN Reason: PAIN-PACU ORDER X 4 DOSES ONLY Ferrous Sulfate (Feosol -) 325 mg PO BIDWM REPLACED BY [facility] Last Admin: 03/23/20 09:33 Dose: 325 mg Documented by: Folic Acid (Folic Acid -) 1 mg PO DAILY REPL[facility]ED BY [facility] Last Admin: 03/23/20 09:34 Dose: 1 mg Documented by: Piperacillin Sod/Tazobactam (Sod 3.375 gm/ Dextrose) 50 mls @ 100 mls/hr IVPB Q8H-IV REPLACED BY [facility]; Protocol Last Admin: 03/23/20 09:35 Dose: 100 mls/hr Documented by: Insulin Aspart (Novolog Vial Sliding Scale -) 1 vial SQ ACHS REPLACED BY [facility]; Protocol Last Admin: 03/23/20 11:43 Dose: 4 units Documented by: Insulin Detemir (Levemir Vial) 10 units SQ BID REPLACED BY [facility] Last Admin: 03/23/20 09:29 Dose: Not Given Documented by: Leflunomide (Arava -) 10 mg PO DAILY REPLACED BY [facility] Last Admin: 03/23/20 09:33 Dose: 10 mg Documented by: Loratadine (Claritin -) 10 mg PO DAILY REPLACED BY [facility] Last Admin: 03/23/20 09:33 Dose: 10 mg Documented by: Losartan Potassium (Cozaar -) 25 mg PO DAILY REPLACED BY [facility] Last Admin: 03/23/20 09:33 Dose: 25 mg Documented by: Methylprednisolone (Medrol -) 4 mg PO DAILY REPLACED BY [facility] Last Admin: 03/23/20 11:28 Dose: 4 mg Documented by: Metoprolol Tartrate (Lopressor -) 25 mg PO DAILY REPLACED BY [facility] Last Admin: 03/23/20 09:33 Dose: 25 mg Documented by: Morphine Sulfate (Morphine Sulfate) 4 mg IVPUSH Q4H PRN PRN Reason: PAIN LEVEL 6-10 Last Admin: 03/23/20 11:52 Dose: 4 mg Documented by: Multivitamins/Minerals/Vitamin C (Tab-A-Vit -) 1 tab PO DAILY REPLACED BY [facility] Last Admin: 03/23/20 09:33 Dose: 1 tab Documented by: Ondansetron HCl (Zofran Injection) 4 mg IVPUSH Q6H PRN PRN Reason: NAUSEA AND/OR VOMITING Ondansetron HCl (Zofran Injection) 4 mg IVPUSH Q6H PRN PRN Reason: NAUSEA AND/OR VOMITING Pantoprazole Sodium (Protonix -) 40 mg PO DAILY REPLACED BY [facility] Last Admin: 03/23/20 09:32 Dose: 40 mg Documented by: Tramadol HCl (Ultram -) 50 mg PO Q6H PRN PRN Reason: PAIN LEVEL 4 - 6 - Objective Vital Signs: Vital Signs Temperature 98.3 F 03/23/20 06:48 Pulse Rate 84 03/23/20 10:00 Respiratory Rate 18 03/23/20 10:00 Blood Pressure 132/64 03/23/20 10:00 O2 Sat by Pulse Oximetry (%) 94 L 03/23/20 10:00 Constitutional: Yes: No Distress, Calm Cardiovascular: Yes: Regular Rate and Rhythm Respiratory: Yes: Diminished (basilar) Gastrointestinal: Yes: Normal Bowel Sounds, Soft Wound/Incision: Yes: Dressing Dry and Intact (LLE- BKA) Labs: CBC, BMP 03/23/20 11:50 03/23/20 11:42 Microbiology 03/18/20 08:10 Blood - Peripheral Venous Blood Culture - Final NO GROWTH AFTER 5 DAYS INCUBATION 03/18/20 08:20 Blood - Peripheral Venous Blood Culture - Final NO GROWTH AFTER 5 DAYS INCUBATION 03/18/20 15:15 Urine - Urine Clean Catch Urine Culture - Final NO GROWTH OBTAINED Problem List - Problems (1) S/P transmetatarsal amputation of foot Code(s): Z89.439 - ACQUIRED ABSENCE OF UNSPECIFIED FOOT (2) Cellulitis of left foot Code(s): L03.116 - CELLULITIS OF LEFT LOWER LIMB (3) ILD (interstitial lung disease) Code(s): J84.9 - INTERSTITIAL PULMONARY DISEASE, UNSPECIFIED (4) PVD (peripheral vascular disease) Code(s): I73.9 - PERIPHERAL VASCULAR DISEASE, UNSPECIFIED (5) Hypercholesterolemia Code(s): E78.00 - PURE HYPERCHOLESTEROLEMIA, UNSPECIFIED (6) Hypertension Code(s): I10 - ESSENTIAL (PRIMARY) HYPERTENSION (7) Type 2 diabetes mellitus Code(s): E11.9 - TYPE 2 DIABETES MELLITUS WITHOUT COMPLICATIONS (8) Venous insufficiency Code(s): I87.2 - VENOUS INSUFFICIENCY (CHRONIC) (PERIPHERAL) Assessment/Plan Gangrene s/p Lt BKA PNA ILD Leukocytosis DM PVD -- pt afebrile, wbc trending down -- pain controlled -- mild cough without respiratory distress -- continue antibiotics -- monitor wbc trend -- wound care
[2020-03-23] MEDS: ATORVASTATIN CA 20 MG TABLET (FP) PO SCH (21:53)
[2020-03-23] MEDS: APIXABAN 5 MG TABLET PO SCH (21:53)
[2020-03-23] MEDS: traMADol HCL 50 MG TABLET PO PRN (21:53)
[2020-03-24] MEDS ORDERED: DEXTROSE 5%-WATER - 50 ML IVPB ONE ×4 (00:27→17:32)
[2020-03-24] MEDS ORDERED: PIPERACILLIN/TAZOBACTAM 3.375 GM VIAL IVPB ONE ×4 (00:27→17:31)
[2020-03-24] MEDS: PIPERACILLIN/TAZOB 3.375 GM 3.375 GM in DEXTROSE 5%-WATER - 50 ML IVPB SCH ×3 (01:16→17:35)
[2020-03-24] MEDS: morphine SULFATE 4 MG/ML VIAL IVPUSH PRN ×4 (01:50→17:35)
[2020-03-24] MEDS: DOCUSATE SODIUM 100 MG CAPSULE (FP) PO SCH ×3 (05:38→21:23)
[2020-03-24] MEDS: INSULIN SLIDING SCALE (NOVOLOG) 1 VIAL SQ SCH ×4 (06:16→21:24)
[2020-03-24 07:50] LABS: BASO % 1.1 % (0-2.0); EOS % 3.9 % (0-4.5); HEMATOCRIT 27.1 % (35.4-49); HEMOGLOBIN 8.7 GM/dL (11.7-16.9); MCH 27.5 pg (25.7-33.7); MCHC 32.2 g/dl (32.0-35.9); MEAN CELL VOLUME 85.4 fl (80-96); MEAN PLT VOLUME 8.2 fl (7.5-11.1); MONO % 8.7 % (3.8-10.2); NEUT % 70.3 % (42.8-82.8); PLATELET COUNT 512 K/MM3 (134-434); RBC 3.17 M/mm3 (4.00-5.60); RDW 14.7 % (11.9-15.9); WHITE BLOOD COUNT 15.3 K/mm3 (4.0-10.0)
[2020-03-24 08:12] LABS: ALBUMIN 1.9 g/dl (3.4-5.0); BILIRUBIN,TOTAL 0.7 mg/dL (0.2-1); BLOOD UREA NITROGEN 10.4 mg/dL (7-18); CALCIUM 7.9 mg/dL (8.5-10.1); CREATININE 0.8 mg/dL (0.55-1.3); POTASSIUM 4.3 mmol/L (3.5-5.1); TOT PROT 5.8 g/dl (6.4-8.2)
[2020-03-24] MEDS: FERROUS SO4 325 MG TABLET (FP) PO SCH ×2 (08:31→17:35)
[2020-03-24] MEDS: AMINO ACIDS/PROTEIN HYDROLYS 30 ML LIQUID.PKT PO SCH ×2 (08:31→17:35)
[2020-03-24 09:06] LABS: ANISOCYTOSIS 1+; MACROCYTOSIS 0; PLATELET ESTIMATE INCREASED
[2020-03-24] MEDS ORDERED: PT OWN MED DRAWER 7, Y5N ONE (10:34)
[2020-03-24] MEDS: LORATADINE 10 MG TABLET PO SCH (10:40)
[2020-03-24] MEDS: CALCIUM (OYSTER SHELL) 500 MG TABLET (FP) PO SCH (10:40)
[2020-03-24] MEDS: MULTIVITAMINS (DAILY MVI) TABLET (FP) PO SCH (10:40)
[2020-03-24] MEDS: METOPROLOL TARTRATE 25 MG TABLET (FP) PO SCH (10:40)
[2020-03-24] MEDS: FOLIC ACID 1 MG TABLET (FP) PO SCH (10:40)
[2020-03-24] MEDS: PANTOPRAZOLE 20 MG TABLET PO SCH (10:40)
[2020-03-24] MEDS: LOSARTAN POTASSIUM 25 MG TABLET PO SCH (10:41)
[2020-03-24] MEDS: LEFLUNOMIDE 10 MG TABLET PO SCH (10:41)
[2020-03-24] MEDS: INSULIN (LEVEMIR) 100 UNITS/ML UNITS SQ SCH ×2 (10:41→21:24)
[2020-03-24] MEDS: methylPREDNISolone 4 MG TABLET PO SCH (10:41)
[2020-03-24] MEDS: BUDESONIDE/FORMETEROL FUMARATE 160/4.5 mcg INHALER IH SCH ×2 (10:41→21:24)
[2020-03-24] MEDS: APIXABAN 5 MG TABLET PO SCH ×2 (10:41→21:23)
--- NOTE | 2020-03-24 11:24 | PN ---
Physical Exam: SUBJECTIVE: Patient seen and examined Patient is comfortable has no new symptoms. OBJECTIVE: Vital Signs Period Temp Pulse Resp BP Sys/Dawson Pulse Ox Last 24 Hr 98.5 F-99.1 F 83-91 18-20 132-146/62-88 98-100 GENERAL: The patient is awake, alert, and fully oriented, in no acute distress. HEAD: Normal with no signs of trauma. EYES: PERRL, extraocular movements intact, sclera anicteric, conjunctiva clear. No ptosis. ENT: Ears normal, nares patent, oropharynx clear without exudates, moist mucous membranes. NECK: Trachea midline, full range of motion, supple. LUNGS: Breath sounds equal, clear to auscultation bilaterally, no wheezes, no crackles, no accessory muscle use. HEART: Regular rate and rhythm, S1, S2 without murmur, rub or gallop. ABDOMEN: Soft, nontender, nondistended, normoactive bowel sounds, no guarding, no rebound, no hepatosplenomegaly, no masses. EXTREMITIES: Left leg amputation NEUROLOGICAL: Cranial nerves II through XII grossly intact. Normal speech, gait not observed. PSYCH: Normal mood, normal affect. SKIN: Warm, dry, normal turgor, no rashes or lesions noted Laboratory Results - last 24 hr 03/23/20 03/23/20 03/23/20 11:32 11:42 11:50 WBC 14.0 H RBC 3.09 L Hgb 8.5 L Hct 26.4 L MCV 85.5 MCH 27.6 MCHC 32.3 RDW 14.9 Plt Count 434 D MPV 8.3 Absolute Neuts (auto) 10.1 H Neutrophils % 72.1 Neutrophils % (Manual) 69.0 Band Neutrophils % 0.0 Lymphocytes % 14.4 D Lymphocytes % (Manual) 19.0 D Monocytes % 10.0 Monocytes % (Manual) 6 Eosinophils % 2.8 Eosinophils % (Manual) 5.0 H D Basophils % 0.7 Basophils % (Manual) 1.0 Myelocytes % (Man) 0 Promyelocytes % (Man) 0 Blast Cells % (Manual) 0 Nucleated RBC % 0 Metamyelocytes 0 Hypochromia 0 Platelet Estimate Normal Polychromasia 1+ Poikilocytosis 0 Anisocytosis 2+ Microcytosis 2+ Macrocytosis 0 Sodium 138 Potassium 3.9 Chloride 105 Carbon Dioxide 25 Anion Gap 7 L BUN 13.1 Creatinine 0.8 Est GFR (CKD-EPI)AfAm 110.96 Est GFR (CKD-EPI)NonAf 95.74 POC Glucometer 210 Random Glucose 207 H Calcium 8.0 L Total Bilirubin 0.7 AST 42 H ALT 44 Alkaline Phosphatase 149 H Total Protein 5.4 L Albumin 1.8 L 03/23/20 03/23/20 03/24/20 17:21 21:52 06:16 WBC RBC Hgb Hct MCV MCH MCHC RDW Plt Count MPV Absolute Neuts (auto) Neutrophils % Neutrophils % (Manual) Band Neutrophils % Lymphocytes % Lymphocytes % (Manual) Monocytes % Monocytes % (Manual) Eosinophils % Eosinophils % (Manual) Basophils % Basophils % (Manual) Myelocytes % (Man) Promyelocytes % (Man) Blast Cells % (Manual) Nucleated RBC % Metamyelocytes Hypochromia Platelet Estimate Polychromasia Poikilocytosis Anisocytosis Microcytosis Macrocytosis Sodium Potassium Chloride Carbon Dioxide Anion Gap BUN Creatinine Est GFR (CKD-EPI)AfAm Est GFR (CKD-EPI)NonAf POC Glucometer 296 254 158 Random Glucose Calcium Total Bilirubin AST ALT Alkaline Phosphatase Total Protein Albumin 03/24/20 03/24/20 06:30 06:30 WBC 15.3 H RBC 3.17 L Hgb 8.7 L Hct 27.1 L MCV 85.4 MCH 27.5 MCHC 32.2 RDW 14.7 Plt Count 512 H MPV 8.2 Absolute Neuts (auto) 10.8 H Neutrophils % 70.3 Neutrophils % (Manual) 74.8 Band Neutrophils % 0.0 Lymphocytes % 16.0 Lymphocytes % (Manual) 13.1 D Monocytes % 8.7 Monocytes % (Manual) 10 Eosinophils % 3.9 Eosinophils % (Manual) 2.0 Basophils % 1.1 Basophils % (Manual) 0.0 Myelocytes % (Man) 0 Promyelocytes % (Man) 0 Blast Cells % (Manual) 0 Nucleated RBC % 0 Metamyelocytes 0 Hypochromia 0 Platelet Estimate Increased Polychromasia 1+ Poikilocytosis 0 Anisocytosis 1+ Microcytosis 1+ Macrocytosis 0 Sodium 135 L Potassium 4.3 Chloride 102 Carbon Dioxide 27 Anion Gap 6 L BUN 10.4 Creatinine 0.8 Est GFR (CKD-EPI)AfAm 110.96 Est GFR (CKD-EPI)NonAf 95.74 POC Glucometer Random Glucose 151 H Calcium 7.9 L Total Bilirubin 0.7 AST 31 ALT 37 Alkaline Phosphatase 137 H Total Protein 5.8 L Albumin 1.9 L Active Medications Generic Name Dose Route Start Last Admin Trade Name Freq PRN Reason Stop Dose Admin Acetaminophen 325 mg 03/22/20 11:24 Tylenol - PO Q4H PRN FEVER Albuterol Sulfate 2 puff 03/22/20 11:24 Ventolin Hfa Inhaler - IH Q4H PRN SHORTNESS OF BREATH Albuterol/Ipratropium 1 amp 03/22/20 11:24 Duoneb - NEB Q4H PRN SHORTNESS OF BREATH Amino Acids 30 ml 03/22/20 17:30 03/24/20 08:31 Prosource No Carb Liquid Pkt PO 30 ml BID@0800,1730 ZAIN Administration Apixaban 5 mg 03/23/20 22:00 03/24/20 10:41 Eliquis - PO 5 mg BID ZAIN Administration Atorvastatin Calcium 20 mg 03/22/20 22:00 03/23/20 21:53 Lipitor - PO 20 mg HS ZAIN Administration Budesonide/Formoterol Fumarate 2 puff 03/22/20 22:00 03/24/20 10:41 Symbicort 160/4.5mcg - IH 2 puff BID ZAIN Administration Calcium Carbonate 500 mg 03/23/20 10:00 03/24/20 10:40 Os-Scott 500mg - PO 500 mg DAILY ZAIN Administration Docusate Sodium 100 mg 03/22/20 14:00 03/24/20 05:38 Colace - PO 100 mg TID ZAIN Administration Fentanyl 50 mcg 03/22/20 09:54 Sublimaze Injection - IVPUSH [id number] PRN PAIN-PACU ORDER X 4 DOSES ONLY Ferrous Sulfate 325 mg 03/22/20 17:30 03/24/20 08:31 Feosol - PO 325 mg BIDWM ZAIN Administration Folic Acid 1 mg 03/23/20 10:00 03/24/20 10:40 Folic Acid - PO 1 mg DAILY ZAIN Administration Piperacillin Sod/Tazobactam 50 mls @ 100 mls/hr 03/22/20 18:00 03/24/20 10:40 Sod 3.375 gm/ Dextrose IVPB 100 mls/hr Q8H-IV ZAIN Administration Protocol Insulin Aspart 1 vial 03/22/20 16:30 03/24/20 06:16 Novolog Vial Sliding Scale - SQ 2 units ACHS ZAIN Administration Protocol Insulin Detemir 10 units 03/23/20 07:30 03/24/20 10:41 Levemir Vial SQ 10 units BID ZAIN Administration Leflunomide 10 mg 03/23/20 10:00 03/24/20 10:41 Arava - PO 10 mg DAILY ZAIN Administration Loratadine 10 mg 03/23/20 10:00 03/24/20 10:40 Claritin - PO 10 mg DAILY ZAIN Administration Losartan Potassium 25 mg 03/23/20 10:00 03/24/20 10:41 Cozaar - PO 25 mg DAILY ZAIN Administration Methylprednisolone 4 mg 03/23/20 10:00 03/24/20 10:41 Medrol - PO 4 mg DAILY ZAIN Administration Metoprolol Tartrate 25 mg 03/23/20 10:00 03/24/20 10:40 Lopressor - PO 25 mg DAILY ZAIN Administration Morphine Sulfate 4 mg 03/22/20 09:38 03/24/20 08:30 Morphine Sulfate IVPUSH 4 mg Q4H PRN Administration PAIN LEVEL 6-10 Multivitamins/Minerals/Vitamin C 1 tab 03/23/20 10:00 03/24/20 10:40 Tab-A-Vit - PO 1 tab DAILY ZAIN Administration Ondansetron HCl 4 mg 03/22/20 09:54 Zofran Injection IVPUSH Q6H PRN NAUSEA AND/OR VOMITING Ondansetron HCl 4 mg 03/22/20 11:24 Zofran Injection IVPUSH Q6H PRN NAUSEA AND/OR VOMITING Pantoprazole Sodium 40 mg 03/23/20 10:00 03/24/20 10:40 Protonix - PO 40 mg DAILY ZAIN Administration Tramadol HCl 50 mg 03/22/20 11:24 03/23/20 21:53 Ultram - PO 50 mg Q6H PRN Administration PAIN LEVEL 4 - 6 ASSESSMENT/PLAN: 64-year-old male with past medical history of hypertension hyperlipidemia rheumatoid arthritis GERD JAMES also PE coronary artery disease diabetes with neuropathy admitted for left foot osteomyelitis status post below-knee amputation. Today is day 2. Plan continue IV antibiotic Continue steroids and nebulizers for COPD and emphysema patient is on Eliquis for pulmonary embolism For diabetes continue current medication plus insulin coverage. Patient has a follow-up by ID and surgery and pulmonary. Visit type - Emergency Visit Emergency Visit: Yes ED Registration Date: 03/15/20 Care time: The patient presented to the Emergency Department on the above date and was hospitalized for further evaluation of their emergent condition. - New Patient This patient is new to me today: Yes Date on this admission: 03/24/20 - Critical Care Critical Care patient: No - Discharge Referral Referred to [facility] Med P.C.: No
--- NOTE | 2020-03-24 11:48 | PN ---
Progress Note (short form) - Note Progress Note: PULMONARY Denies shortness of breath. Still some cough. No fevers. Vital Signs Period Temp Pulse Resp BP Sys/Dawson Pulse Ox Last 24 Hr 98.5 F-99.1 F 83-91 18-20 132-146/62-88 98-100 Gen: NAD at rest Heart: RRR Lung: basilar rales, rhonchi Abd: soft, nontender Ext: no edema CBC, BMP 03/24/20 06:30 03/24/20 06:30 Active Medications Acetaminophen (Tylenol -) 325 mg PO Q4H PRN PRN Reason: FEVER Albuterol Sulfate (Ventolin Hfa Inhaler -) 2 puff IH Q4H PRN PRN Reason: SHORTNESS OF BREATH Albuterol/Ipratropium (Duoneb -) 1 amp NEB Q4H PRN PRN Reason: SHORTNESS OF BREATH Amino Acids (Prosource No Carb Liquid Pkt) 30 ml PO BID@0800,1730 [facility] Last Admin: 03/24/20 08:31 Dose: 30 ml Documented by: Apixaban (Eliquis -) 5 mg PO BID [facility] Last Admin: 03/24/20 10:41 Dose: 5 mg Documented by: Atorvastatin Calcium (Lipitor -) 20 mg PO HS [facility] Last Admin: 03/23/20 21:53 Dose: 20 mg Documented by: Budesonide/Formoterol Fumarate (Symbicort 160/4.5mcg -) 2 puff IH BID [facility] Last Admin: 03/24/20 10:41 Dose: 2 puff Documented by: Calcium Carbonate (Os-Scott 500mg -) 500 mg PO DAILY [facility] Last Admin: 03/24/20 10:40 Dose: 500 mg Documented by: Docusate Sodium (Colace -) 100 mg PO TID [facility] Last Admin: 03/24/20 05:38 Dose: 100 mg Documented by: Fentanyl (Sublimaze Injection -) 50 mcg IVPUSH [id number] PRN PRN Reason: PAIN-PACU ORDER X 4 DOSES ONLY Ferrous Sulfate (Feosol -) 325 mg PO BIDWM [facility] Last Admin: 03/24/20 08:31 Dose: 325 mg Documented by: Folic Acid (Folic Acid -) 1 mg PO DAILY [facility] Last Admin: 03/24/20 10:40 Dose: 1 mg Documented by: Piperacillin Sod/Tazobactam (Sod 3.375 gm/ Dextrose) 50 mls @ 100 mls/hr IVPB Q8H-IV [facility]; Protocol Last Admin: 03/24/20 10:40 Dose: 100 mls/hr Documented by: Insulin Aspart (Novolog Vial Sliding Scale -) 1 vial SQ ACHS [facility]; Protocol Last Admin: 03/24/20 06:16 Dose: 2 units Documented by: Insulin Detemir (Levemir Vial) 10 units SQ BID [facility] Last Admin: 03/24/20 10:41 Dose: 10 units Documented by: Leflunomide (Arava -) 10 mg PO DAILY [facility] Last Admin: 03/24/20 10:41 Dose: 10 mg Documented by: Loratadine (Claritin -) 10 mg PO DAILY [facility] Last Admin: 03/24/20 10:40 Dose: 10 mg Documented by: Losartan Potassium (Cozaar -) 25 mg PO DAILY [facility] Last Admin: 03/24/20 10:41 Dose: 25 mg Documented by: Methylprednisolone (Medrol -) 4 mg PO DAILY [facility] Last Admin: 03/24/20 10:41 Dose: 4 mg Documented by: Metoprolol Tartrate (Lopressor -) 25 mg PO DAILY [facility] Last Admin: 03/24/20 10:40 Dose: 25 mg Documented by: Morphine Sulfate (Morphine Sulfate) 4 mg IVPUSH Q4H PRN PRN Reason: PAIN LEVEL 6-10 Last Admin: 03/24/20 08:30 Dose: 4 mg Documented by: Multivitamins/Minerals/Vitamin C (Tab-A-Vit -) 1 tab PO DAILY [facility] Last Admin: 03/24/20 10:40 Dose: 1 tab Documented by: Ondansetron HCl (Zofran Injection) 4 mg IVPUSH Q6H PRN PRN Reason: NAUSEA AND/OR VOMITING Ondansetron HCl (Zofran Injection) 4 mg IVPUSH Q6H PRN PRN Reason: NAUSEA AND/OR VOMITING Pantoprazole Sodium (Protonix -) 40 mg PO DAILY [facility] Last Admin: 03/24/20 10:40 Dose: 40 mg Documented by: Tramadol HCl (Ultram -) 50 mg PO Q6H PRN PRN Reason: PAIN LEVEL 4 - 6 Last Admin: 03/23/20 21:53 Dose: 50 mg Documented by: A/P Pneumonia Interstitial Lung Disease Bronchiectasis h/o PE PAD HTN DM Hyperlipidemia s/p R BKA - continue antibiotics - inhaled bronchodilators - O2 to keep SpO2 >90% - continue anticoagulation
[2020-03-24] MEDS ORDERED: INSULIN (NOVOLOG) ASPART 100 UNITS/ML 10ML VIAL ONE ×2 (11:52→17:53)
[2020-03-24] MEDS: traMADol HCL 50 MG TABLET PO PRN ×2 (11:55→21:23)
--- NOTE | 2020-03-24 12:26 | PN ---
Progress Note (short form) - Note Progress Note: Vascular Surgery Pt seen and examined. S/P Left BKA Day 2. Doing well. Pain in well control Will take down dressing in am. Torres Pearl DO Problem List - Problems (1) Gangrene of toe of left foot Code(s): I96 - GANGRENE, NOT ELSEWHERE CLASSIFIED
[2020-03-24] MEDS ORDERED: INSULIN (LEVEMIR) 100 UNITS/ML UNITS SQ ONE (17:53)
[2020-03-24] MEDS: ATORVASTATIN CA 20 MG TABLET (FP) PO SCH (21:23)
--- NOTE | 2020-03-24 21:45 | PN ---
Progress Note, Physician History of Present Illness: Pt without distress, minimal cough. Afebrile today. Lt BKA POD#2. - Current Medication List Current Medications: Active Medications Acetaminophen (Tylenol -) 325 mg PO Q4H PRN PRN Reason: FEVER Albuterol Sulfate (Ventolin Hfa Inhaler -) 2 puff IH Q4H PRN PRN Reason: SHORTNESS OF BREATH Albuterol/Ipratropium (Duoneb -) 1 amp NEB Q4H PRN PRN Reason: SHORTNESS OF BREATH Amino Acids (Prosource No Carb Liquid Pkt) 30 ml PO BID@0800,1730 [facility] Last Admin: 03/24/20 17:35 Dose: 30 ml Documented by: Apixaban (Eliquis -) 5 mg PO BID [facility] Last Admin: 03/24/20 21:23 Dose: 5 mg Documented by: Atorvastatin Calcium (Lipitor -) 20 mg PO HS [facility] Last Admin: 03/24/20 21:23 Dose: 20 mg Documented by: Budesonide/Formoterol Fumarate (Symbicort 160/4.5mcg -) 2 puff IH BID [facility] Last Admin: 03/24/20 21:24 Dose: 2 puff Documented by: Calcium Carbonate (Os-Scott 500mg -) 500 mg PO DAILY [facility] Last Admin: 03/24/20 10:40 Dose: 500 mg Documented by: Docusate Sodium (Colace -) 100 mg PO TID [facility] Last Admin: 03/24/20 21:23 Dose: 100 mg Documented by: Fentanyl (Sublimaze Injection -) 50 mcg IVPUSH [id number] PRN PRN Reason: PAIN-PACU ORDER X 4 DOSES ONLY Ferrous Sulfate (Feosol -) 325 mg PO BIDWM [facility] Last Admin: 03/24/20 17:35 Dose: 325 mg Documented by: Folic Acid (Folic Acid -) 1 mg PO DAILY [facility] Last Admin: 03/24/20 10:40 Dose: 1 mg Documented by: Piperacillin Sod/Tazobactam (Sod 3.375 gm/ Dextrose) 50 mls @ 100 mls/hr IVPB Q8H-IV [facility]; Protocol Last Admin: 03/24/20 17:35 Dose: 100 mls/hr Documented by: Insulin Aspart (Novolog Vial Sliding Scale -) 1 vial SQ ACHS [facility]; Protocol Last Admin: 03/24/20 21:24 Dose: 4 units Documented by: Insulin Detemir (Levemir Vial) 10 units SQ BID [facility] Last Admin: 03/24/20 21:24 Dose: 10 units Documented by: Leflunomide (Arava -) 10 mg PO DAILY [facility] Last Admin: 03/24/20 10:41 Dose: 10 mg Documented by: Loratadine (Claritin -) 10 mg PO DAILY [facility] Last Admin: 03/24/20 10:40 Dose: 10 mg Documented by: Losartan Potassium (Cozaar -) 25 mg PO DAILY [facility] Last Admin: 03/24/20 10:41 Dose: 25 mg Documented by: Methylprednisolone (Medrol -) 4 mg PO DAILY [facility] Last Admin: 03/24/20 10:41 Dose: 4 mg Documented by: Metoprolol Tartrate (Lopressor -) 25 mg PO DAILY [facility] Last Admin: 03/24/20 10:40 Dose: 25 mg Documented by: Morphine Sulfate (Morphine Sulfate) 4 mg IVPUSH Q4H PRN PRN Reason: PAIN LEVEL 6-10 Last Admin: 03/24/20 17:35 Dose: 4 mg Documented by: Multivitamins/Minerals/Vitamin C (Tab-A-Vit -) 1 tab PO DAILY [facility] Last Admin: 03/24/20 10:40 Dose: 1 tab Documented by: Ondansetron HCl (Zofran Injection) 4 mg IVPUSH Q6H PRN PRN Reason: NAUSEA AND/OR VOMITING Ondansetron HCl (Zofran Injection) 4 mg IVPUSH Q6H PRN PRN Reason: NAUSEA AND/OR VOMITING Pantoprazole Sodium (Protonix -) 40 mg PO DAILY [facility] Last Admin: 03/24/20 10:40 Dose: 40 mg Documented by: Tramadol HCl (Ultram -) 50 mg PO Q6H PRN PRN Reason: PAIN LEVEL 4 - 6 Last Admin: 03/24/20 21:23 Dose: 50 mg Documented by: - Objective Vital Signs: Vital Signs Temperature 98.6 F 03/24/20 19:25 Pulse Rate 96 H 03/24/20 19:25 Respiratory Rate 20 03/24/20 20:14 Blood Pressure 101/59 L 03/24/20 19:25 O2 Sat by Pulse Oximetry (%) 97 03/24/20 20:14 Constitutional: Yes: No Distress Cardiovascular: Yes: Regular Rate and Rhythm Respiratory: Yes: Rales (basilar) Gastrointestinal: Yes: Normal Bowel Sounds, Soft Extremities: Yes: Amputation (Lt BKA - dressing intact) Neurological: Yes: Alert Labs: CBC, BMP 03/24/20 06:30 03/24/20 06:30 Laboratory Last Values WBC 15.3 K/mm3 (4.0-10.0) H 03/24/20 06:30 RBC 3.17 M/mm3 (4.00-5.60) L 03/24/20 06:30 Hgb 8.7 GM/dL (11.7-16.9) L 03/24/20 06:30 Hct 27.1 % (35.4-49) L 03/24/20 06:30 MCV 85.4 fl (80-96) 03/24/20 06:30 MCH 27.5 pg (25.7-33.7) 03/24/20 06:30 MCHC 32.2 g/dl (32.0-35.9) 03/24/20 06:30 RDW 14.7 % (11.9-15.9) 03/24/20 06:30 Plt Count 512 K/MM3 (134-434) H 03/24/20 06:30 MPV 8.2 fl (7.5-11.1) 03/24/20 06:30 Absolute Neuts (auto) 10.8 K/mm3 (1.5-8.0) H 03/24/20 06:30 Neutrophils % 70.3 % (42.8-82.8) 03/24/20 06:30 Neutrophils % (Manual) 74.8 % (42.8-82.8) 03/24/20 06:30 Band Neutrophils % 0.0 % 03/24/20 06:30 Lymphocytes % 16.0 % (8-40) 03/24/20 06:30 Lymphocytes % (Manual) 13.1 % (8-40) D 03/24/20 06:30 Monocytes % 8.7 % (3.8-10.2) 03/24/20 06:30 Monocytes % (Manual) 10 % (3.8-10.2) 03/24/20 06:30 Eosinophils % 3.9 % (0-4.5) 03/24/20 06:30 Eosinophils % (Manual) 2.0 % (0-4.5) 03/24/20 06:30 Basophils % 1.1 % (0-2.0) 03/24/20 06:30 Basophils % (Manual) 0.0 % (0-2.0) 03/24/20 06:30 Myelocytes % (Man) 0 % (0-2) 03/24/20 06:30 Promyelocytes % (Man) 0 % (0-2) 03/24/20 06:30 Blast Cells % (Manual) 0 % (0-0) 03/24/20 06:30 Nucleated RBC % 0 % (0-0) 03/24/20 06:30 Metamyelocytes 0 % (0-2) 03/24/20 06:30 Hypochromia 0 03/24/20 06:30 Platelet Estimate Increased 03/24/20 06:30 Polychromasia 1+ 03/24/20 06:30 Poikilocytosis 0 03/24/20 06:30 Anisocytosis 1+ 03/24/20 06:30 Microcytosis 1+ 03/24/20 06:30 Macrocytosis 0 03/24/20 06:30 Sodium 135 mmol/L (136-145) L 03/24/20 06:30 Potassium 4.3 mmol/L (3.5-5.1) 03/24/20 06:30 Chloride 102 mmol/L (98-107) 03/24/20 06:30 Carbon Dioxide 27 mmol/L (21-32) 03/24/20 06:30 Anion Gap 6 MMOL/L (8-16) L 03/24/20 06:30 BUN 10.4 mg/dL (7-18) 03/24/20 06:30 Creatinine 0.8 mg/dL (0.55-1.3) 03/24/20 06:30 Est GFR (CKD-EPI)AfAm 110.96 03/24/20 06:30 Est GFR (CKD-EPI)NonAf 95.74 03/24/20 06:30 POC Glucometer 238 UNITS (80-120) 03/24/20 21:22 Random Glucose 151 mg/dL (74-106) H 03/24/20 06:30 Lactic Acid 1.3 mmol/L (0.4-2.0) 03/19/20 08:25 Calcium 7.9 mg/dL (8.5-10.1) L 03/24/20 06:30 Magnesium 1.8 mg/dL (1.8-2.4) 03/22/20 06:50 Total Bilirubin 0.7 mg/dL (0.2-1) 03/24/20 06:30 AST 31 U/L (15-37) 03/24/20 06:30 ALT 37 U/L (13-61) 03/24/20 06:30 Alkaline Phosphatase 137 U/L (45-117) H 03/24/20 06:30 Total Protein 5.8 g/dl (6.4-8.2) L 03/24/20 06:30 Albumin 1.9 g/dl (3.4-5.0) L 03/24/20 06:30 Urine Color Yellow 03/18/20 15:15 Urine Appearance Clear 03/18/20 15:15 Urine pH 6.5 (5.0-8.0) 03/18/20 15:15 Ur Specific [place] 1.017 (1.010-1.035) 03/18/20 15:15 Urine Protein 2+ (NEGATIVE) H 03/18/20 15:15 Urine Glucose (UA) Negative (NEGATIVE) 03/18/20 15:15 Urine Ketones Trace (NEGATIVE) H 03/18/20 15:15 Urine Blood 2+ (NEGATIVE) H 03/18/20 15:15 Urine Nitrite Negative (NEGATIVE) 03/18/20 15:15 Urine Bilirubin Negative (NEGATIVE) 03/18/20 15:15 Urine Urobilinogen 1.0 mg/dL (0.2-1.0) 03/18/20 15:15 Ur Leukocyte Esterase Negative (NEGATIVE) 03/18/20 15:15 Urine WBC (Auto) 3 /uL (0-25.8) 03/18/20 15:15 Urine RBC (Auto) 9 /uL (0-23.9) 03/18/20 15:15 Urine Casts (Auto) 0 /uL (0-3.1) 03/18/20 15:15 U Epithel Cells (Auto) 7 /uL (0-25.1) 03/18/20 15:15 Urine Bacteria (Auto) 0 /uL (0-1359) 03/18/20 15:15 COVID-19 (OSIRIS) Not detected (Not Detected) 03/18/20 11:00 Blood Type AB POSITIVE 03/21/20 17:25 Antibody Screen Negative 03/21/20 17:25 Crossmatch See Detail 03/21/20 17:25 Microbiology 03/18/20 08:10 Blood - Peripheral Venous Blood Culture - Final NO GROWTH AFTER 5 DAYS INCUBATION 03/18/20 08:20 Blood - Peripheral Venous Blood Culture - Final NO GROWTH AFTER 5 DAYS INCUBATION 03/18/20 15:15 Urine - Urine Clean Catch Urine Culture - Final NO GROWTH OBTAINED Problem List - Problems (1) S/P transmetatarsal amputation of foot Code(s): Z89.439 - ACQUIRED ABSENCE OF UNSPECIFIED FOOT (2) Cellulitis of left foot Code(s): L03.116 - CELLULITIS OF LEFT LOWER LIMB (3) ILD (interstitial lung disease) Code(s): J84.9 - INTERSTITIAL PULMONARY DISEASE, UNSPECIFIED (4) PVD (peripheral vascular disease) Code(s): I73.9 - PERIPHERAL VASCULAR DISEASE, UNSPECIFIED (5) Hypercholesterolemia Code(s): E78.00 - PURE HYPERCHOLESTEROLEMIA, UNSPECIFIED (6) Hypertension Code(s): I10 - ESSENTIAL (PRIMARY) HYPERTENSION (7) Type 2 diabetes mellitus Code(s): E11.9 - TYPE 2 DIABETES MELLITUS WITHOUT COMPLICATIONS (8) Venous insufficiency Code(s): I87.2 - VENOUS INSUFFICIENCY (CHRONIC) (PERIPHERAL) Assessment/Plan Gangrene s/p Lt BKA POD#2 PNA ILD Leukocytosis DM PVD -- pt afebrile, wbc elevated/fluctuating- monitor for now -- breathing well, mild cough -- pain controlled -- continue antibiotics -- wound care/surgery following
[2020-03-25] MEDS: morphine SULFATE 4 MG/ML VIAL IVPUSH PRN ×2 (00:19→05:42)
[2020-03-25] MEDS ORDERED: PIPERACILLIN/TAZOBACTAM 3.375 GM VIAL IVPB ONE ×3 (00:48→17:01)
[2020-03-25] MEDS ORDERED: DEXTROSE 5%-WATER - 50 ML IVPB ONE ×3 (00:48→17:01)
[2020-03-25] MEDS: PIPERACILLIN/TAZOB 3.375 GM 3.375 GM in DEXTROSE 5%-WATER - 50 ML IVPB SCH ×3 (01:19→17:07)
[2020-03-25] MEDS: DOCUSATE SODIUM 100 MG CAPSULE (FP) PO SCH ×3 (05:41→21:52)
[2020-03-25] MEDS: INSULIN SLIDING SCALE (NOVOLOG) 1 VIAL SQ SCH ×4 (06:17→21:51)
[2020-03-25] MEDS ORDERED: INSULIN (LEVEMIR) 100 UNITS/ML UNITS SQ ONE (06:22)
[2020-03-25] MEDS: FERROUS SO4 325 MG TABLET (FP) PO SCH ×2 (08:49→17:06)
[2020-03-25] MEDS: AMINO ACIDS/PROTEIN HYDROLYS 30 ML LIQUID.PKT PO SCH ×2 (08:49→17:06)
--- NOTE | 2020-03-25 09:34 | PN ---
Progress Note, Physician History of Present Illness: post op bka coughing a lot still - Current Medication List Current Medications: Active Medications Acetaminophen (Tylenol -) 325 mg PO Q4H PRN PRN Reason: FEVER Albuterol Sulfate (Ventolin Hfa Inhaler -) 2 puff IH Q4H PRN PRN Reason: SHORTNESS OF BREATH Albuterol/Ipratropium (Duoneb -) 1 amp NEB Q4H PRN PRN Reason: SHORTNESS OF BREATH Amino Acids (Prosource No Carb Liquid Pkt) 30 ml PO BID@0800,1730 [facility] Last Admin: 03/25/20 08:49 Dose: 30 ml Documented by: Apixaban (Eliquis -) 5 mg PO BID [facility] Last Admin: 03/24/20 21:23 Dose: 5 mg Documented by: Atorvastatin Calcium (Lipitor -) 20 mg PO HS [facility] Last Admin: 03/24/20 21:23 Dose: 20 mg Documented by: Budesonide/Formoterol Fumarate (Symbicort 160/4.5mcg -) 2 puff IH BID [facility] Last Admin: 03/24/20 21:24 Dose: 2 puff Documented by: Calcium Carbonate (Os-Scott 500mg -) 500 mg PO DAILY [facility] Last Admin: 03/24/20 10:40 Dose: 500 mg Documented by: Docusate Sodium (Colace -) 100 mg PO TID [facility] Last Admin: 03/25/20 05:41 Dose: 100 mg Documented by: Fentanyl (Sublimaze Injection -) 50 mcg IVPUSH [id number] PRN PRN Reason: PAIN-PACU ORDER X 4 DOSES ONLY Ferrous Sulfate (Feosol -) 325 mg PO BIDWM [facility] Last Admin: 03/25/20 08:49 Dose: 325 mg Documented by: Folic Acid (Folic Acid -) 1 mg PO DAILY [facility] Last Admin: 03/24/20 10:40 Dose: 1 mg Documented by: Piperacillin Sod/Tazobactam (Sod 3.375 gm/ Dextrose) 50 mls @ 100 mls/hr IVPB Q8H-IV [facility]; Protocol Last Admin: 03/25/20 01:19 Dose: 100 mls/hr Documented by: Insulin Aspart (Novolog Vial Sliding Scale -) 1 vial SQ ACHS [facility]; Protocol Last Admin: 03/25/20 06:17 Dose: Not Given Documented by: Insulin Detemir (Levemir Vial) 10 units SQ BID [facility] Last Admin: 03/24/20 21:24 Dose: 10 units Documented by: Leflunomide (Arava -) 10 mg PO DAILY [facility] Last Admin: 03/24/20 10:41 Dose: 10 mg Documented by: Loratadine (Claritin -) 10 mg PO DAILY [facility] Last Admin: 03/24/20 10:40 Dose: 10 mg Documented by: Losartan Potassium (Cozaar -) 25 mg PO DAILY [facility] Last Admin: 03/24/20 10:41 Dose: 25 mg Documented by: Methylprednisolone (Medrol -) 4 mg PO DAILY [facility] Last Admin: 03/24/20 10:41 Dose: 4 mg Documented by: Metoprolol Tartrate (Lopressor -) 25 mg PO DAILY [facility] Last Admin: 03/24/20 10:40 Dose: 25 mg Documented by: Morphine Sulfate (Morphine Sulfate) 4 mg IVPUSH Q4H PRN PRN Reason: PAIN LEVEL 6-10 Last Admin: 03/25/20 05:42 Dose: 4 mg Documented by: Multivitamins/Minerals/Vitamin C (Tab-A-Vit -) 1 tab PO DAILY [facility] Last Admin: 03/24/20 10:40 Dose: 1 tab Documented by: Ondansetron HCl (Zofran Injection) 4 mg IVPUSH Q6H PRN PRN Reason: NAUSEA AND/OR VOMITING Ondansetron HCl (Zofran Injection) 4 mg IVPUSH Q6H PRN PRN Reason: NAUSEA AND/OR VOMITING Pantoprazole Sodium (Protonix -) 40 mg PO DAILY [facility] Last Admin: 03/24/20 10:40 Dose: 40 mg Documented by: Tramadol HCl (Ultram -) 50 mg PO Q6H PRN PRN Reason: PAIN LEVEL 4 - 6 Last Admin: 03/24/20 21:23 Dose: 50 mg Documented by: - Objective Vital Signs: Vital Signs Temperature 98.7 F 03/25/20 05:00 Pulse Rate 98 H 03/25/20 05:00 Respiratory Rate 18 03/25/20 05:00 Blood Pressure 121/58 L 03/25/20 05:00 O2 Sat by Pulse Oximetry (%) 98 03/25/20 05:00 Constitutional: Yes: Calm, Mild Distress Cardiovascular: Yes: S1, S2 Respiratory: Yes: Regular, CTA Bilaterally Gastrointestinal: Yes: Normal Bowel Sounds, Soft Musculoskeletal: Yes: WNL Extremities: Yes: Other Wound/Incision: Yes: Dressing Dry and Intact Neurological: Yes: Alert, Oriented Psychiatric: Yes: Alert, Oriented Labs: CBC, BMP 03/24/20 06:30 03/24/20 06:30 Assessment/Plan 64 y.o. M w/ PMHx. of HTN, DM, PVD, RA, GERD, Iron Deficiency Anemia and Hx. of PE presented with L. foot gangrene. Pt. is s/p L. TMA L. foot TMA htn pna dm gerd h/o of pe plan continue abx wound care check cbc rest as per the team
[2020-03-25] MEDS ORDERED: PT OWN MED DRAWER 7, Y5N ONE (09:35)
[2020-03-25] MEDS: LORATADINE 10 MG TABLET PO SCH (09:41)
[2020-03-25] MEDS: LEFLUNOMIDE 10 MG TABLET PO SCH (09:41)
[2020-03-25] MEDS: LOSARTAN POTASSIUM 25 MG TABLET PO SCH (09:41)
[2020-03-25] MEDS: APIXABAN 5 MG TABLET PO SCH ×2 (09:41→21:52)
[2020-03-25] MEDS: CALCIUM (OYSTER SHELL) 500 MG TABLET (FP) PO SCH (09:41)
[2020-03-25] MEDS: METOPROLOL TARTRATE 25 MG TABLET (FP) PO SCH (09:41)
[2020-03-25] MEDS: MULTIVITAMINS (DAILY MVI) TABLET (FP) PO SCH (09:42)
[2020-03-25] MEDS: PANTOPRAZOLE 20 MG TABLET PO SCH (09:42)
[2020-03-25] MEDS: methylPREDNISolone 4 MG TABLET PO SCH (09:42)
[2020-03-25] MEDS: FOLIC ACID 1 MG TABLET (FP) PO SCH (09:45)
[2020-03-25] MEDS: BUDESONIDE/FORMETEROL FUMARATE 160/4.5 mcg INHALER IH SCH ×2 (09:45→21:53)
[2020-03-25] MEDS: INSULIN (LEVEMIR) 100 UNITS/ML UNITS SQ SCH ×2 (09:49→21:53)
--- NOTE | 2020-03-25 10:30 | PN ---
Progress Note (short form) - Note Progress Note: Vascular Surgery: Vital Signs Period Temp Pulse Resp BP Sys/Dawson Pulse Ox Last 24 Hr 98.6 F-98.9 F 85-98 18-20 101-135/58-70 97-98 GEN: A&0x3, NAD Left BKA site: incision c/d/iwith birdie. No drainage or erythema. No ischemic edges. Reapplied xeroform/dry dressing and henri wrap/knee immobilizer CBC, BMP 03/24/20 06:30 03/24/20 06:30 A/P: 64 yo male s/p Left TMA 03/15 and Left BKA 03/22 Left BKA site healing well, continue dressing with xeroform/kerlix and henri wrap/knee immobilizer Physical Therapy for bedside ROM D/w Dr. Pearl
[2020-03-25 11:57] LABS: BASO % 0.8 % (0-2.0); EOS % 3.3 % (0-4.5); HEMOGLOBIN 9.3 GM/dL (11.7-16.9); LYMPH % 12.3 % (8-40); MCH 28.3 pg (25.7-33.7); MCHC 33.1 g/dl (32.0-35.9); MEAN CELL VOLUME 85.6 fl (80-96); MEAN PLT VOLUME 7.7 fl (7.5-11.1); MONO % 5.9 % (3.8-10.2); NEUT % 77.7 % (42.8-82.8); PLATELET COUNT 626 K/MM3 (134-434); RBC 3.27 M/mm3 (4.00-5.60); WHITE BLOOD COUNT 16.6 K/mm3 (4.0-10.0)
[2020-03-25 12:22] LABS: ALBUMIN 1.9 g/dl (3.4-5.0); BILIRUBIN,TOTAL 0.6 mg/dL (0.2-1); BLOOD UREA NITROGEN 14.9 mg/dL (7-18); CALCIUM 8.3 mg/dL (8.5-10.1); CREATININE 0.9 mg/dL (0.55-1.3); TOT PROT 5.8 g/dl (6.4-8.2)
[2020-03-25 12:52] LABS: ANISOCYTOSIS 0; MACROCYTOSIS 0; PLATELET ESTIMATE INCREASED
[2020-03-25] MEDS ORDERED: INSULIN (NOVOLOG) ASPART 100 UNITS/ML 10ML VIAL ONE (14:05)
--- NOTE | 2020-03-25 14:53 | PN ---
Progress Note (short form) - Note Progress Note: PULMONARY Denies shortness of breath. Still some cough. No fevers. Vital Signs Period Temp Pulse Resp BP Sys/Dawson Pulse Ox Last 24 Hr 98.6 F-99 F 93-98 18-20 101-121/58-64 97-98 Gen: NAD at rest Heart: RRR Lung: basilar rales, rhonchi Abd: soft, nontender Ext: no edema CBC, BMP 03/25/20 11:20 03/25/20 11:20 Active Medications Acetaminophen (Tylenol -) 325 mg PO Q4H PRN PRN Reason: FEVER Albuterol Sulfate (Ventolin Hfa Inhaler -) 2 puff IH Q4H PRN PRN Reason: SHORTNESS OF BREATH Albuterol/Ipratropium (Duoneb -) 1 amp NEB Q4H PRN PRN Reason: SHORTNESS OF BREATH Amino Acids (Prosource No Carb Liquid Pkt) 30 ml PO BID@0800,1730 [facility] Last Admin: 03/25/20 08:49 Dose: 30 ml Documented by: Apixaban (Eliquis -) 5 mg PO BID [facility] Last Admin: 03/25/20 09:41 Dose: 5 mg Documented by: Atorvastatin Calcium (Lipitor -) 20 mg PO HS [facility] Last Admin: 03/24/20 21:23 Dose: 20 mg Documented by: Budesonide/Formoterol Fumarate (Symbicort 160/4.5mcg -) 2 puff IH BID [facility] Last Admin: 03/25/20 09:45 Dose: 2 puff Documented by: Calcium Carbonate (Os-Scott 500mg -) 500 mg PO DAILY [facility] Last Admin: 03/25/20 09:41 Dose: 500 mg Documented by: Docusate Sodium (Colace -) 100 mg PO TID [facility] Last Admin: 03/25/20 14:18 Dose: 100 mg Documented by: Fentanyl (Sublimaze Injection -) 50 mcg IVPUSH [id number] PRN PRN Reason: PAIN-PACU ORDER X 4 DOSES ONLY Ferrous Sulfate (Feosol -) 325 mg PO BIDWM [facility] Last Admin: 03/25/20 08:49 Dose: 325 mg Documented by: Folic Acid (Folic Acid -) 1 mg PO DAILY [facility] Last Admin: 03/25/20 09:45 Dose: 1 mg Documented by: Piperacillin Sod/Tazobactam (Sod 3.375 gm/ Dextrose) 50 mls @ 100 mls/hr IVPB Q8H-IV [facility]; Protocol Last Admin: 03/25/20 09:42 Dose: 100 mls/hr Documented by: Insulin Aspart (Novolog Vial Sliding Scale -) 1 vial SQ ACHS [facility]; Protocol Last Admin: 03/25/20 14:11 Dose: 6 units Documented by: Insulin Detemir (Levemir Vial) 10 units SQ BID [facility] Last Admin: 03/25/20 09:49 Dose: 10 units Documented by: Leflunomide (Arava -) 10 mg PO DAILY [facility] Last Admin: 03/25/20 09:41 Dose: 10 mg Documented by: Loratadine (Claritin -) 10 mg PO DAILY [facility] Last Admin: 03/25/20 09:41 Dose: 10 mg Documented by: Losartan Potassium (Cozaar -) 25 mg PO DAILY [facility] Last Admin: 03/25/20 09:41 Dose: 25 mg Documented by: Methylprednisolone (Medrol -) 4 mg PO DAILY [facility] Last Admin: 03/25/20 09:42 Dose: 4 mg Documented by: Metoprolol Tartrate (Lopressor -) 25 mg PO DAILY [facility] Last Admin: 03/25/20 09:41 Dose: 25 mg Documented by: Multivitamins/Minerals/Vitamin C (Tab-A-Vit -) 1 tab PO DAILY [facility] Last Admin: 03/25/20 09:42 Dose: 1 tab Documented by: Ondansetron HCl (Zofran Injection) 4 mg IVPUSH Q6H PRN PRN Reason: NAUSEA AND/OR VOMITING Ondansetron HCl (Zofran Injection) 4 mg IVPUSH Q6H PRN PRN Reason: NAUSEA AND/OR VOMITING Pantoprazole Sodium (Protonix -) 40 mg PO DAILY [facility] Last Admin: 03/25/20 09:42 Dose: 40 mg Documented by: A/P Pneumonia Interstitial Lung Disease Bronchiectasis h/o PE PAD HTN DM Hyperlipidemia s/p R BKA - continue antibiotics - inhaled bronchodilators - O2 to keep SpO2 >90% - continue anticoagulation
[2020-03-25] MEDS ORDERED: VANCOMYCIN 1 GM in D5W (PRE-DOCKED) 1,000 MG/250 ML IVPB ONE ×2 (14:54→15:45)
--- NOTE | 2020-03-25 17:11 | CON.CARD ---
Consult Consult Specialty:: Cardiology - History of Present Illness History of Present Illness: 64-year-old male with past medical history of hypertension hyperlipidemia rheumatoid arthritis GERD JAMES also PE coronary artery disease diabetes with neuropathy admitted for left foot osteomyelitis status post below-knee amputation. PMH Asthma Bronchiectasis Type 2 Diabetes 1999 Esophageal Reflux Hypertension Pulmonary Embolism 2014. treated for 1 year Recurrent pulmonary emboli s/p embolectomy Feb 2018 Rheumatoid Arthritis Spondylosis Hyperlipidemia - History Source History Provided By: Patient, Medical Record - Past Medical History Pulmonary: Yes: Bronchitis, Pneumonia, Pulmonary Embolus. No: Asthma, Cancer, COPD, O2 Dependent, Previously Intubated, Pulmonary Fibrosis, Sleep Apnea Musculoskeletal: Yes: Other (Rheumatoid arthritis) Rheumatology: Yes: Rheumatoid Arthritis Endocrine: Yes: Diabetes Insipidus - Alcohol/Substance Use Hx Alcohol Use: No - Smoking History Smoking history: Never smoked Have you smoked in the past 12 months: No - Social History History of Recent Travel: No Home Medications - Allergies Allergies/Adverse Reactions: Allergies Allergy/AdvReac Type Severity Reaction Status Date / Time enalapril Allergy Severe Cough Verified 03/15/20 06:56 vancomycin AdvReac Mild Itching Verified 03/15/20 06:56 - Home Medications Home Medications: Ambulatory Orders Calcium Carbonate [Oysco-500] 500 mg PO DAILY 07/08/19 Ferrous Sulfate 1 tab PO BID 10/09/19 Apixaban [Eliquis -] 5 mg PO BID 01/30/20 Atorvastatin Ca [Lipitor] 20 mg PO HS 01/30/20 Insulin Glargine,Hum.rec.anlog [Basaglar Kwikpen U-100] 10 unit SQ HS 01/30/20 Insulin Lispro [Admelog] 10 unit SQ AC 01/30/20 Leflunomide 10 mg PO DAILY 01/30/20 Methylprednisolone [Medrol -] 4 mg PO DAILY 01/30/20 Metoprolol Tartrate 25 mg PO DAILY 01/30/20 Omeprazole 20 mg PO DAILY 01/30/20 Telmisartan 20 mg PO DAILY 01/30/20 metFORMIN HCL [Metformin ER Osmotic] 1,000 mg PO DAILY 01/30/20 Albuterol Sulfate Inhaler - [Ventolin HFA Inhaler -] 1 - 2 inh PO Q4H #1 inhaler 01/31/20 Multivitamin [Multiple Vitamins] 1 tab PO DAILY 02/02/20 Vitamin C 1 tab PO DAILY 02/02/20 Zinc 1 tab PO DAILY 02/02/20 Collagenase Clostridium Hist. [Santyl] 1 applic TP DAILY #90 oint...g. 02/16/20 Acetaminophen [Tylenol .Extra-Strength -] 500 mg PO Q8H 03/13/20 Cetirizine HCl 10 mg PO DAILY 03/13/20 Folic Acid 1 mg PO DAILY 03/13/20 Family Medical History Family Hx Cancer: Father (Diabetes mellitus) Family Hx Respiratory Disorders: Mother (Asthma) Review of Systems - Review of Systems Constitutional: reports: No Symptoms Eyes: reports: No Symptoms HENT: reports: No Symptoms Neck: reports: No Symptoms Cardiovascular: reports: No Symptoms Gastrointestinal: reports: No Symptoms Genitourinary: reports: No Symptoms Breasts: reports: No Symptoms Reported Musculoskeletal: reports: No Symptoms Integumentary: reports: No Symptoms Neurological: reports: No Symptoms Endocrine: reports: No Symptoms Hematology/Lymphatic: reports: No Symptoms Psychiatric: reports: No Symptoms Vital Signs: Vital Signs Temperature 98.9 F 03/25/20 14:00 Pulse Rate 90 03/25/20 14:00 Respiratory Rate 18 03/25/20 14:00 Blood Pressure 120/68 03/25/20 14:00 O2 Sat by Pulse Oximetry (%) 98 03/25/20 09:00 Constitutional: Yes: Well Nourished, No Distress, Calm Eyes: Yes: WNL, Conjunctiva Clear, EOM Intact HENT: Yes: WNL, Atraumatic, Normocephalic Neck: Yes: WNL, Supple, Trachea Midline Respiratory: Yes: WNL, Regular, CTA Bilaterally Gastrointestinal: Yes: WNL, Normal Bowel Sounds Renal/: Yes: WNL Cardiovascular: Yes: WNL, Regular Rate and Rhythm Musculoskeletal: Yes: WNL Extremities: Yes: Amputation (L BKA) Integumentary: Yes: WNL Neurological: Yes: WNL, Alert, Oriented ...Motor Strength: WNL Psychiatric: Yes: WNL, Alert, Oriented - Other Data Labs, Other Data: CBC, BMP 03/25/20 11:20 03/25/20 11:20 Laboratory Tests 03/15/20 03/16/20 03/16/20 06:53 05:28 05:28 WBC 19.5 H RBC 4.36 Hgb 12.2 Hct 38.1 MCV 87.4 MCH 27.9 MCHC 32.0 RDW 15.0 Plt Count 280 D MPV 9.6 Absolute Neuts (auto) 15.0 H Neutrophils % 77.0 Neutrophils % (Manual) Band Neutrophils % Lymphocytes % 10.4 Lymphocytes % (Manual) Monocytes % 10.6 H Monocytes % (Manual) Eosinophils % 0.9 Eosinophils % (Manual) Basophils % 1.1 Basophils % (Manual) Myelocytes % (Man) Promyelocytes % (Man) Blast Cells % (Manual) Nucleated RBC % 0 Metamyelocytes Hypochromia Platelet Estimate Polychromasia Poikilocytosis Anisocytosis Microcytosis Macrocytosis Sodium 137 Potassium 3.8 Chloride 101 Carbon Dioxide 25 Anion Gap 11 BUN 14.7 Creatinine 1.1 Est GFR (CKD-EPI)AfAm 82.95 Est GFR (CKD-EPI)NonAf 71.57 POC Glucometer 155 Random Glucose 172 H Lactic Acid Calcium 8.7 Magnesium Total Bilirubin AST ALT Alkaline Phosphatase Total Protein Albumin Urine Color Urine Appearance Urine pH Ur Specific [place] Urine Protein Urine Glucose (UA) Urine Ketones Urine Blood Urine Nitrite Urine Bilirubin Urine Urobilinogen Ur Leukocyte Esterase Urine WBC (Auto) Urine RBC (Auto) Urine Casts (Auto) U Epithel Cells (Auto) Urine Bacteria (Auto) COVID-19 ([facility]) Blood Type Antibody Screen Crossmatch 03/16/20 03/17/20 03/17/20 21:34 06:13 06:20 WBC 22.2 H RBC 3.82 L Hgb 11.0 L Hct 33.7 L MCV 88.2 MCH 28.8 MCHC 32.6 RDW 14.6 Plt Count 229 MPV 9.7 Absolute Neuts (auto) 18.8 H Neutrophils % 84.7 H Neutrophils % (Manual) 82.8 D Band Neutrophils % 5.1 Lymphocytes % 5.4 L D Lymphocytes % (Manual) 4.0 L D Monocytes % 9.4 Monocytes % (Manual) 5 Eosinophils % 0.0 D Eosinophils % (Manual) 0.0 D Basophils % 0.5 Basophils % (Manual) 2.0 Myelocytes % (Man) 0 D Promyelocytes % (Man) 0 Blast Cells % (Manual) 0 Nucleated RBC % 0 Metamyelocytes 0 D Hypochromia 0 Platelet Estimate Normal Polychromasia 0 Poikilocytosis 0 Anisocytosis 0 Microcytosis 0 Macrocytosis 0 Sodium Potassium Chloride Carbon Dioxide Anion Gap BUN Creatinine Est GFR (CKD-EPI)AfAm Est GFR (CKD-EPI)NonAf POC Glucometer 308 201 Random Glucose Lactic Acid Calcium Magnesium Total Bilirubin AST ALT Alkaline Phosphatase Total Protein Albumin Urine Color Urine Appearance Urine pH Ur Specific [place] Urine Protein Urine Glucose (UA) Urine Ketones Urine Blood Urine Nitrite Urine Bilirubin Urine Urobilinogen Ur Leukocyte Esterase Urine WBC (Auto) Urine RBC (Auto) Urine Casts (Auto) U Epithel Cells (Auto) Urine Bacteria (Auto) COVID-19 ([facility]) Blood Type Antibody Screen Crossmatch 03/17/20 03/17/20 03/18/20 06:20 22:06 05:59 WBC RBC Hgb Hct MCV MCH MCHC RDW Plt Count MPV Absolute Neuts (auto) Neutrophils % Neutrophils % (Manual) Band Neutrophils % Lymphocytes % Lymphocytes % (Manual) Monocytes % Monocytes % (Manual) Eosinophils % Eosinophils % (Manual) Basophils % Basophils % (Manual) Myelocytes % (Man) Promyelocytes % (Man) Blast Cells % (Manual) Nucleated RBC % Metamyelocytes Hypochromia Platelet Estimate Polychromasia Poikilocytosis Anisocytosis Microcytosis Macrocytosis Sodium 134 L Potassium 3.5 Chloride 98 Carbon Dioxide 25 Anion Gap 11 BUN 18.5 H Creatinine 1.4 H Est GFR (CKD-EPI)AfAm 61.97 Est GFR (CKD-EPI)NonAf 53.47 POC Glucometer 254 138 Random Glucose 191 H Lactic Acid Calcium 8.7 Magnesium Total Bilirubin AST ALT Alkaline Phosphatase Total Protein Albumin Urine Color Urine Appearance Urine pH Ur Specific [place] Urine Protein Urine Glucose (UA) Urine Ketones Urine Blood Urine Nitrite Urine Bilirubin Urine Urobilinogen Ur Leukocyte Esterase Urine WBC (Auto) Urine RBC (Auto) Urine Casts (Auto) U Epithel Cells (Auto) Urine Bacteria (Auto) COVID-19 ([facility]) Blood Type Antibody Screen Crossmatch 03/18/20 03/18/20 03/18/20 07:48 07:48 08:10 WBC 17.7 H RBC 3.36 L Hgb 9.4 L Hct 29.0 L MCV 86.5 MCH 27.9 MCHC 32.3 RDW 14.6 Plt Count 211 MPV 9.9 Absolute Neuts (auto) 15.5 H Neutrophils % 87.5 H Neutrophils % (Manual) Band Neutrophils % Lymphocytes % 4.7 L Lymphocytes % (Manual) Monocytes % 7.1 Monocytes % (Manual) Eosinophils % 0.2 D Eosinophils % (Manual) Basophils % 0.5 Basophils % (Manual) Myelocytes % (Man) Promyelocytes % (Man) Blast Cells % (Manual) Nucleated RBC % 0 Metamyelocytes Hypochromia Platelet Estimate Polychromasia Poikilocytosis Anisocytosis Microcytosis Macrocytosis Sodium 131 L Potassium 3.7 Chloride 95 L Carbon Dioxide 26 Anion Gap 10 BUN 15.5 Creatinine 1.1 Est GFR (CKD-EPI)AfAm 82.95 Est GFR (CKD-EPI)NonAf 71.57 POC Glucometer Random Glucose 118 H Lactic Acid 3.2 H* Calcium 8.7 Magnesium Total Bilirubin 0.8 AST 28 ALT 9 L Alkaline Phosphatase 50 Total Protein 5.9 L Albumin 2.2 L Urine Color Urine Appearance Urine pH Ur Specific [place] Urine Protein Urine Glucose (UA) Urine Ketones Urine Blood Urine Nitrite Urine Bilirubin Urine Urobilinogen Ur Leukocyte Esterase Urine WBC (Auto) Urine RBC (Auto) Urine Casts (Auto) U Epithel Cells (Auto) Urine Bacteria (Auto) COVID-19 ([facility]) Blood Type Antibody Screen Crossmatch 03/18/20 03/18/20 03/18/20 10:32 11:00 15:15 WBC RBC Hgb Hct MCV MCH MCHC RDW Plt Count MPV Absolute Neuts (auto) Neutrophils % Neutrophils % (Manual) Band Neutrophils % Lymphocytes % Lymphocytes % (Manual) Monocytes % Monocytes % (Manual) Eosinophils % Eosinophils % (Manual) Basophils % Basophils % (Manual) Myelocytes % (Man) Promyelocytes % (Man) Blast Cells % (Manual) Nucleated RBC % Metamyelocytes Hypochromia Platelet Estimate Polychromasia Poikilocytosis Anisocytosis Microcytosis Macrocytosis Sodium Potassium Chloride Carbon Dioxide Anion Gap BUN Creatinine Est GFR (CKD-EPI)AfAm Est GFR (CKD-EPI)NonAf POC Glucometer 156 Random Glucose Lactic Acid Calcium Magnesium Total Bilirubin AST ALT Alkaline Phosphatase Total Protein Albumin Urine Color Yellow Urine Appearance Clear Urine pH 6.5 Ur Specific [place] 1.017 Urine Protein 2+ H Urine Glucose (UA) Negative Urine Ketones Trace H Urine Blood 2+ H Urine Nitrite Negative Urine Bilirubin Negative Urine Urobilinogen 1.0 Ur Leukocyte Esterase Negative Urine WBC (Auto) 3 Urine RBC (Auto) 9 Urine Casts (Auto) 0 U Epithel Cells (Auto) 7 Urine Bacteria (Auto) 0 COVID-19 ([facility]) Not detected Blood Type Antibody Screen Crossmatch 03/18/20 03/18/20 03/18/20 15:57 16:35 21:58 WBC RBC Hgb Hct MCV MCH MCHC RDW Plt Count MPV Absolute Neuts (auto) Neutrophils % Neutrophils % (Manual) Band Neutrophils % Lymphocytes % Lymphocytes % (Manual) Monocytes % Monocytes % (Manual) Eosinophils % Eosinophils % (Manual) Basophils % Basophils % (Manual) Myelocytes % (Man) Promyelocytes % (Man) Blast Cells % (Manual) Nucleated RBC % Metamyelocytes Hypochromia Platelet Estimate Polychromasia Poikilocytosis Anisocytosis Microcytosis Macrocytosis Sodium Potassium Chloride Carbon Dioxide Anion Gap BUN Creatinine Est GFR (CKD-EPI)AfAm Est GFR (CKD-EPI)NonAf POC Glucometer 223 165 Random Glucose Lactic Acid 2.6 H* Calcium Magnesium Total Bilirubin AST ALT Alkaline Phosphatase Total Protein Albumin Urine Color Urine Appearance Urine pH Ur Specific [place] Urine Protein Urine Glucose (UA) Urine Ketones Urine Blood Urine Nitrite Urine Bilirubin Urine Urobilinogen Ur Leukocyte Esterase Urine WBC (Auto) Urine RBC (Auto) Urine Casts (Auto) U Epithel Cells (Auto) Urine Bacteria (Auto) COVID-19 ([facility]) Blood Type Antibody Screen Crossmatch 03/19/20 03/19/20 03/19/20 05:29 06:50 06:50 WBC 14.8 H RBC 3.18 L Hgb 9.0 L Hct 27.2 L MCV 85.4 MCH 28.1 MCHC 32.9 RDW 14.6 Plt Count 211 MPV 9.6 Absolute Neuts (auto) 12.4 H Neutrophils % 83.7 H Neutrophils % (Manual) Band Neutrophils % Lymphocytes % 6.2 L D Lymphocytes % (Manual) Monocytes % 8.9 Monocytes % (Manual) Eosinophils % 0.7 D Eosinophils % (Manual) Basophils % 0.5 Basophils % (Manual) Myelocytes % (Man) Promyelocytes % (Man) Blast Cells % (Manual) Nucleated RBC % 0 Metamyelocytes Hypochromia Platelet Estimate Polychromasia Poikilocytosis Anisocytosis Microcytosis Macrocytosis Sodium 136 Potassium 3.5 Chloride 100 Carbon Dioxide 28 Anion Gap 7 L BUN 13.6 Creatinine 0.8 Est GFR (CKD-EPI)AfAm 110.96 Est GFR (CKD-EPI)NonAf 95.74 POC Glucometer 94 Random Glucose 73 L Lactic Acid Calcium 8.5 Magnesium 1.8 Total Bilirubin 0.9 AST 35 ALT 13 Alkaline Phosphatase 50 Total Protein 5.5 L Albumin 2.0 L Urine Color Urine Appearance Urine pH Ur Specific [place] Urine Protein Urine Glucose (UA) Urine Ketones Urine Blood Urine Nitrite Urine Bilirubin Urine Urobilinogen Ur Leukocyte Esterase Urine WBC (Auto) Urine RBC (Auto) Urine Casts (Auto) U Epithel Cells (Auto) Urine Bacteria (Auto) COVID-19 ([facility]) Blood Type Antibody Screen Crossmatch 03/19/20 03/19/20 03/19/20 08:25 11:27 16:36 WBC RBC Hgb Hct MCV MCH MCHC RDW Plt Count MPV Absolute Neuts (auto) Neutrophils % Neutrophils % (Manual) Band Neutrophils % Lymphocytes % Lymphocytes % (Manual) Monocytes % Monocytes % (Manual) Eosinophils % Eosinophils % (Manual) Basophils % Basophils % (Manual) Myelocytes % (Man) Promyelocytes % (Man) Blast Cells % (Manual) Nucleated RBC % Metamyelocytes Hypochromia Platelet Estimate Polychromasia Poikilocytosis Anisocytosis Microcytosis Macrocytosis Sodium Potassium Chloride Carbon Dioxide Anion Gap BUN Creatinine Est GFR (CKD-EPI)AfAm Est GFR (CKD-EPI)NonAf POC Glucometer 102 168 Random Glucose Lactic Acid 1.3 Calcium Magnesium Total Bilirubin AST ALT Alkaline Phosphatase Total Protein Albumin Urine Color Urine Appearance Urine pH Ur Specific [place] Urine Protein Urine Glucose (UA) Urine Ketones Urine Blood Urine Nitrite Urine Bilirubin Urine Urobilinogen Ur Leukocyte Esterase Urine WBC (Auto) Urine RBC (Auto) Urine Casts (Auto) U Epithel Cells (Auto) Urine Bacteria (Auto) COVID-19 ([facility]) Blood Type Antibody Screen Crossmatch 03/19/20 03/20/20 03/20/20 22:50 06:19 07:00 WBC 13.4 H RBC 3.18 L Hgb 8.9 L Hct 27.5 L MCV 86.6 MCH 27.9 MCHC 32.2 RDW 14.5 Plt Count 212 MPV 9.6 Absolute Neuts (auto) 10.5 H Neutrophils % 78.6 Neutrophils % (Manual) Band Neutrophils % Lymphocytes % 8.8 D Lymphocytes % (Manual) Monocytes % 9.1 Monocytes % (Manual) Eosinophils % 2.7 D Eosinophils % (Manual) Basophils % 0.8 Basophils % (Manual) Myelocytes % (Man) Promyelocytes % (Man) Blast Cells % (Manual) Nucleated RBC % 0 Metamyelocytes Hypochromia Platelet Estimate Polychromasia Poikilocytosis Anisocytosis Microcytosis Macrocytosis Sodium Potassium Chloride Carbon Dioxide Anion Gap BUN Creatinine Est GFR (CKD-EPI)AfAm Est GFR (CKD-EPI)NonAf POC Glucometer 161 78 Random Glucose Lactic Acid Calcium Magnesium Total Bilirubin AST ALT Alkaline Phosphatase Total Protein Albumin Urine Color Urine Appearance Urine pH Ur Specific [place] Urine Protein Urine Glucose (UA) Urine Ketones Urine Blood Urine Nitrite Urine Bilirubin Urine Urobilinogen Ur Leukocyte Esterase Urine WBC (Auto) Urine RBC (Auto) Urine Casts (Auto) U Epithel Cells (Auto) Urine Bacteria (Auto) COVID-19 ([facility]) Blood Type Antibody Screen Crossmatch 03/20/20 03/20/20 03/20/20 07:00 11:42 16:55 WBC RBC Hgb Hct MCV MCH MCHC RDW Plt Count MPV Absolute Neuts (auto) Neutrophils % Neutrophils % (Manual) Band Neutrophils % Lymphocytes % Lymphocytes % (Manual) Monocytes % Monocytes % (Manual) Eosinophils % Eosinophils % (Manual) Basophils % Basophils % (Manual) Myelocytes % (Man) Promyelocytes % (Man) Blast Cells % (Manual) Nucleated RBC % Metamyelocytes Hypochromia Platelet Estimate Polychromasia Poikilocytosis Anisocytosis Microcytosis Macrocytosis Sodium 138 Potassium 3.2 L Chloride 103 Carbon Dioxide 28 Anion Gap 7 L BUN 13.9 Creatinine 0.8 Est GFR (CKD-EPI)AfAm 110.96 Est GFR (CKD-EPI)NonAf 95.74 POC Glucometer 117 197 Random Glucose 77 Lactic Acid Calcium 7.8 L Magnesium 1.7 L Total Bilirubin 0.8 AST 70 H ALT 40 Alkaline Phosphatase 98 Total Protein 5.4 L Albumin 1.9 L Urine Color Urine Appearance Urine pH Ur Specific [place] Urine Protein Urine Glucose (UA) Urine Ketones Urine Blood Urine Nitrite Urine Bilirubin Urine Urobilinogen Ur Leukocyte Esterase Urine WBC (Auto) Urine RBC (Auto) Urine Casts (Auto) U Epithel Cells (Auto) Urine Bacteria (Auto) COVID-19 ([facility]) Blood Type Antibody Screen Crossmatch 03/20/20 03/21/20 03/21/20 22:38 05:55 06:25 WBC 15.5 H RBC 3.18 L Hgb 9.1 L Hct 27.4 L MCV 86.0 MCH 28.7 MCHC 33.4 RDW 15.1 Plt Count 243 MPV 9.6 Absolute Neuts (auto) 12.1 H Neutrophils % 78.1 Neutrophils % (Manual) Band Neutrophils % Lymphocytes % 9.3 Lymphocytes % (Manual) Monocytes % 8.1 Monocytes % (Manual) Eosinophils % 3.7 Eosinophils % (Manual) Basophils % 0.8 Basophils % (Manual) Myelocytes % (Man) Promyelocytes % (Man) Blast Cells % (Manual) Nucleated RBC % 0 Metamyelocytes Hypochromia Platelet Estimate Polychromasia Poikilocytosis Anisocytosis Microcytosis Macrocytosis Sodium Potassium Chloride Carbon Dioxide Anion Gap BUN Creatinine Est GFR (CKD-EPI)AfAm Est GFR (CKD-EPI)NonAf POC Glucometer 176 86 Random Glucose Lactic Acid Calcium Magnesium Total Bilirubin AST ALT Alkaline Phosphatase Total Protein Albumin Urine Color Urine Appearance Urine pH Ur Specific [place] Urine Protein Urine Glucose (UA) Urine Ketones Urine Blood Urine Nitrite Urine Bilirubin Urine Urobilinogen Ur Leukocyte Esterase Urine WBC (Auto) Urine RBC (Auto) Urine Casts (Auto) U Epithel Cells (Auto) Urine Bacteria (Auto) COVID-19 ([facility]) Blood Type Antibody Screen Crossmatch 03/21/20 03/21/20 03/21/20 06:25 12:06 16:52 WBC RBC Hgb Hct MCV MCH MCHC RDW Plt Count MPV Absolute Neuts (auto) Neutrophils % Neutrophils % (Manual) Band Neutrophils % Lymphocytes % Lymphocytes % (Manual) Monocytes % Monocytes % (Manual) Eosinophils % Eosinophils % (Manual) Basophils % Basophils % (Manual) Myelocytes % (Man) Promyelocytes % (Man) Blast Cells % (Manual) Nucleated RBC % Metamyelocytes Hypochromia Platelet Estimate Polychromasia Poikilocytosis Anisocytosis Microcytosis Macrocytosis Sodium 136 Potassium 3.3 L Chloride 102 Carbon Dioxide 26 Anion Gap 8 BUN 10.6 Creatinine 0.8 Est GFR (CKD-EPI)AfAm 110.96 Est GFR (CKD-EPI)NonAf 95.74 POC Glucometer 137 274 Random Glucose 77 Lactic Acid Calcium 8.0 L Magnesium 1.7 L Total Bilirubin 0.8 AST 69 H ALT 58 Alkaline Phosphatase 156 H Total Protein 5.6 L Albumin 1.9 L Urine Color Urine Appearance Urine pH Ur Specific [place] Urine Protein Urine Glucose (UA) Urine Ketones Urine Blood Urine Nitrite Urine Bilirubin Urine Urobilinogen Ur Leukocyte Esterase Urine WBC (Auto) Urine RBC (Auto) Urine Casts (Auto) U Epithel Cells (Auto) Urine Bacteria (Auto) COVID-19 ([facility]) Blood Type Antibody Screen Crossmatch 03/21/20 03/21/20 03/22/20 17:25 21:12 06:36 WBC RBC Hgb Hct MCV MCH MCHC RDW Plt Count MPV Absolute Neuts (auto) Neutrophils % Neutrophils % (Manual) Band Neutrophils % Lymphocytes % Lymphocytes % (Manual) Monocytes % Monocytes % (Manual) Eosinophils % Eosinophils % (Manual) Basophils % Basophils % (Manual) Myelocytes % (Man) Promyelocytes % (Man) Blast Cells % (Manual) Nucleated RBC % Metamyelocytes Hypochromia Platelet Estimate Polychromasia Poikilocytosis Anisocytosis Microcytosis Macrocytosis Sodium Potassium Chloride Carbon Dioxide Anion Gap BUN Creatinine Est GFR (CKD-EPI)AfAm Est GFR (CKD-EPI)NonAf POC Glucometer 144 104 Random Glucose Lactic Acid Calcium Magnesium Total Bilirubin AST ALT Alkaline Phosphatase Total Protein Albumin Urine Color Urine Appearance Urine pH Ur Specific [place] Urine Protein Urine Glucose (UA) Urine Ketones Urine Blood Urine Nitrite Urine Bilirubin Urine Urobilinogen Ur Leukocyte Esterase Urine WBC (Auto) Urine RBC (Auto) Urine Casts (Auto) U Epithel Cells (Auto) Urine Bacteria (Auto) COVID-19 ([facility]) Blood Type AB POSITIVE Antibody Screen Negative Crossmatch See Detail 03/22/20 03/22/20 03/22/20 06:50 06:50 16:53 WBC 15.0 H RBC 3.13 L Hgb 8.8 L Hct 26.7 L MCV 85.5 MCH 28.2 MCHC 33.0 RDW 14.9 Plt Count 331 D MPV 8.7 Absolute Neuts (auto) 11.0 H Neutrophils % 73.7 Neutrophils % (Manual) Band Neutrophils % Lymphocytes % 11.6 D Lymphocytes % (Manual) Monocytes % 9.4 Monocytes % (Manual) Eosinophils % 4.3 Eosinophils % (Manual) Basophils % 1.0 Basophils % (Manual) Myelocytes % (Man) Promyelocytes % (Man) Blast Cells % (Manual) Nucleated RBC % 0 Metamyelocytes Hypochromia Platelet Estimate Polychromasia Poikilocytosis Anisocytosis Microcytosis Macrocytosis Sodium 136 Potassium 3.8 Chloride 104 Carbon Dioxide 25 Anion Gap 7 L BUN 12.2 Creatinine 0.8 Est GFR (CKD-EPI)AfAm 110.96 Est GFR (CKD-EPI)NonAf 95.74 POC Glucometer 177 Random Glucose 93 Lactic Acid Calcium 7.7 L Magnesium 1.8 Total Bilirubin AST ALT Alkaline Phosphatase Total Protein Albumin Urine Color Urine Appearance Urine pH Ur Specific [place] Urine Protein Urine Glucose (UA) Urine Ketones Urine Blood Urine Nitrite Urine Bilirubin Urine Urobilinogen Ur Leukocyte Esterase Urine WBC (Auto) Urine RBC (Auto) Urine Casts (Auto) U Epithel Cells (Auto) Urine Bacteria (Auto) COVID-19 ([facility]) Blood Type Antibody Screen Crossmatch 03/22/20 03/23/20 03/23/20 22:18 06:24 11:32 WBC RBC Hgb Hct MCV MCH MCHC RDW Plt Count MPV Absolute Neuts (auto) Neutrophils % Neutrophils % (Manual) Band Neutrophils % Lymphocytes % Lymphocytes % (Manual) Monocytes % Monocytes % (Manual) Eosinophils % Eosinophils % (Manual) Basophils % Basophils % (Manual) Myelocytes % (Man) Promyelocytes % (Man) Blast Cells % (Manual) Nucleated RBC % Metamyelocytes Hypochromia Platelet Estimate Polychromasia Poikilocytosis Anisocytosis Microcytosis Macrocytosis Sodium Potassium Chloride Carbon Dioxide Anion Gap BUN Creatinine Est GFR (CKD-EPI)AfAm Est GFR (CKD-EPI)NonAf POC Glucometer 383 235 210 Random Glucose Lactic Acid Calcium Magnesium Total Bilirubin AST ALT Alkaline Phosphatase Total Protein Albumin Urine Color Urine Appearance Urine pH Ur Specific [place] Urine Protein Urine Glucose (UA) Urine Ketones Urine Blood Urine Nitrite Urine Bilirubin Urine Urobilinogen Ur Leukocyte Esterase Urine WBC (Auto) Urine RBC (Auto) Urine Casts (Auto) U Epithel Cells (Auto) Urine Bacteria (Auto) COVID-19 ([facility]) Blood Type Antibody Screen Crossmatch 03/23/20 03/23/20 03/23/20 11:42 11:50 17:21 WBC 14.0 H RBC 3.09 L Hgb 8.5 L Hct 26.4 L MCV 85.5 MCH 27.6 MCHC 32.3 RDW 14.9 Plt Count 434 D MPV 8.3 Absolute Neuts (auto) 10.1 H Neutrophils % 72.1 Neutrophils % (Manual) 69.0 Band Neutrophils % 0.0 Lymphocytes % 14.4 D Lymphocytes % (Manual) 19.0 D Monocytes % 10.0 Monocytes % (Manual) 6 Eosinophils % 2.8 Eosinophils % (Manual) 5.0 H D Basophils % 0.7 Basophils % (Manual) 1.0 Myelocytes % (Man) 0 Promyelocytes % (Man) 0 Blast Cells % (Manual) 0 Nucleated RBC % 0 Metamyelocytes 0 Hypochromia 0 Platelet Estimate Normal Polychromasia 1+ Poikilocytosis 0 Anisocytosis 2+ Microcytosis 2+ Macrocytosis 0 Sodium 138 Potassium 3.9 Chloride 105 Carbon Dioxide 25 Anion Gap 7 L BUN 13.1 Creatinine 0.8 Est GFR (CKD-EPI)AfAm 110.96 Est GFR (CKD-EPI)NonAf 95.74 POC Glucometer 296 Random Glucose 207 H Lactic Acid Calcium 8.0 L Magnesium Total Bilirubin 0.7 AST 42 H ALT 44 Alkaline Phosphatase 149 H Total Protein 5.4 L Albumin 1.8 L Urine Color Urine Appearance Urine pH Ur Specific [place] Urine Protein Urine Glucose (UA) Urine Ketones Urine Blood Urine Nitrite Urine Bilirubin Urine Urobilinogen Ur Leukocyte Esterase Urine WBC (Auto) Urine RBC (Auto) Urine Casts (Auto) U Epithel Cells (Auto) Urine Bacteria (Auto) COVID-19 ([facility]) Blood Type Antibody Screen Crossmatch 03/23/20 03/24/20 03/24/20 21:52 06:16 06:30 WBC 15.3 H RBC 3.17 L Hgb 8.7 L Hct 27.1 L MCV 85.4 MCH 27.5 MCHC 32.2 RDW 14.7 Plt Count 512 H MPV 8.2 Absolute Neuts (auto) 10.8 H Neutrophils % 70.3 Neutrophils % (Manual) 74.8 Band Neutrophils % 0.0 Lymphocytes % 16.0 Lymphocytes % (Manual) 13.1 D Monocytes % 8.7 Monocytes % (Manual) 10 Eosinophils % 3.9 Eosinophils % (Manual) 2.0 Basophils % 1.1 Basophils % (Manual) 0.0 Myelocytes % (Man) 0 Promyelocytes % (Man) 0 Blast Cells % (Manual) 0 Nucleated RBC % 0 Metamyelocytes 0 Hypochromia 0 Platelet Estimate Increased Polychromasia 1+ Poikilocytosis 0 Anisocytosis 1+ Microcytosis 1+ Macrocytosis 0 Sodium Potassium Chloride Carbon Dioxide Anion Gap BUN Creatinine Est GFR (CKD-EPI)AfAm Est GFR (CKD-EPI)NonAf POC Glucometer 254 158 Random Glucose Lactic Acid Calcium Magnesium Total Bilirubin AST ALT Alkaline Phosphatase Total Protein Albumin Urine Color Urine Appearance Urine pH Ur Specific [place] Urine Protein Urine Glucose (UA) Urine Ketones Urine Blood Urine Nitrite Urine Bilirubin Urine Urobilinogen Ur Leukocyte Esterase Urine WBC (Auto) Urine RBC (Auto) Urine Casts (Auto) U Epithel Cells (Auto) Urine Bacteria (Auto) COVID-19 (OSIRIS) Blood Type Antibody Screen Crossmatch 03/24/20 03/24/20 03/24/20 06:30 11:57 17:40 WBC RBC Hgb Hct MCV MCH MCHC RDW Plt Count MPV Absolute Neuts (auto) Neutrophils % Neutrophils % (Manual) Band Neutrophils % Lymphocytes % Lymphocytes % (Manual) Monocytes % Monocytes % (Manual) Eosinophils % Eosinophils % (Manual) Basophils % Basophils % (Manual) Myelocytes % (Man) Promyelocytes % (Man) Blast Cells % (Manual) Nucleated RBC % Metamyelocytes Hypochromia Platelet Estimate Polychromasia Poikilocytosis Anisocytosis Microcytosis Macrocytosis Sodium 135 L Potassium 4.3 Chloride 102 Carbon Dioxide 27 Anion Gap 6 L BUN 10.4 Creatinine 0.8 Est GFR (CKD-EPI)AfAm 110.96 Est GFR (CKD-EPI)NonAf 95.74 POC Glucometer 228 286 Random Glucose 151 H Lactic Acid Calcium 7.9 L Magnesium Total Bilirubin 0.7 AST 31 ALT 37 Alkaline Phosphatase 137 H Total Protein 5.8 L Albumin 1.9 L Urine Color Urine Appearance Urine pH Ur Specific [place] Urine Protein Urine Glucose (UA) Urine Ketones Urine Blood Urine Nitrite Urine Bilirubin Urine Urobilinogen Ur Leukocyte Esterase Urine WBC (Auto) Urine RBC (Auto) Urine Casts (Auto) U Epithel Cells (Auto) Urine Bacteria (Auto) COVID-19 (OSIRIS) Blood Type Antibody Screen Crossmatch 03/24/20 03/25/20 03/25/20 21:22 06:16 11:20 WBC 16.6 H RBC 3.27 L Hgb 9.3 L Hct 28.0 L MCV 85.6 MCH 28.3 MCHC 33.1 RDW 15.0 Plt Count 626 H D MPV 7.7 Absolute Neuts (auto) 12.9 H Neutrophils % 77.7 Neutrophils % (Manual) 74.8 Band Neutrophils % 0.0 Lymphocytes % 12.3 D Lymphocytes % (Manual) 17.5 D Monocytes % 5.9 Monocytes % (Manual) 0 L D Eosinophils % 3.3 Eosinophils % (Manual) 1.9 Basophils % 0.8 Basophils % (Manual) 0.0 Myelocytes % (Man) 3 H D Promyelocytes % (Man) 0 Blast Cells % (Manual) 0 Nucleated RBC % 0 Metamyelocytes 3 H D Hypochromia 0 Platelet Estimate Increased Polychromasia 0 Poikilocytosis 0 Anisocytosis 0 Microcytosis 0 Macrocytosis 0 Sodium Potassium Chloride Carbon Dioxide Anion Gap BUN Creatinine Est GFR (CKD-EPI)AfAm Est GFR (CKD-EPI)NonAf POC Glucometer 238 121 Random Glucose Lactic Acid Calcium Magnesium Total Bilirubin AST ALT Alkaline Phosphatase Total Protein Albumin Urine Color Urine Appearance Urine pH Ur Specific [place] Urine Protein Urine Glucose (UA) Urine Ketones Urine Blood Urine Nitrite Urine Bilirubin Urine Urobilinogen Ur Leukocyte Esterase Urine WBC (Auto) Urine RBC (Auto) Urine Casts (Auto) U Epithel Cells (Auto) Urine Bacteria (Auto) COVID-19 (OS[facility]IS) Blood Type Antibody Screen Crossmatch 03/25/20 03/25/20 03/25/20 11:20 11:44 16:48 WBC RBC Hgb Hct MCV MCH MCHC RDW Plt Count MPV Absolute Neuts (auto) Neutrophils % Neutrophils % (Manual) Band Neutrophils % Lymphocytes % Lymphocytes % (Manual) Monocytes % Monocytes % (Manual) Eosinophils % Eosinophils % (Manual) Basophils % Basophils % (Manual) Myelocytes % (Man) Promyelocytes % (Man) Blast Cells % (Manual) Nucleated RBC % Metamyelocytes Hypochromia Platelet Estimate Polychromasia Poikilocytosis Anisocytosis Microcytosis Macrocytosis Sodium 133 L Potassium 4.0 Chloride 99 Carbon Dioxide 28 Anion Gap 6 L BUN 14.9 Creatinine 0.9 Est GFR (CKD-EPI)AfAm 105.72 Est GFR (CKD-EPI)NonAf 91.22 POC Glucometer 230 293 Random Glucose 239 H Lactic Acid Calcium 8.3 L Magnesium Total Bilirubin 0.6 AST 27 ALT 28 Alkaline Phosphatase 131 H Total Protein 5.8 L Albumin 1.9 L Urine Color Urine Appearance Urine pH Ur Specific [place] Urine Protein Urine Glucose (UA) Urine Ketones Urine Blood Urine Nitrite Urine Bilirubin Urine Urobilinogen Ur Leukocyte Esterase Urine WBC (Auto) Urine RBC (Auto) Urine Casts (Auto) U Epithel Cells (Auto) Urine Bacteria (Auto) COVID-19 ([facility]IS) Blood Type Antibody Screen Crossmatch Problem List - Problems (1) S/P transmetatarsal amputation of foot Code(s): Z89.439 - ACQUIRED ABSENCE OF UNSPECIFIED FOOT (2) Cellulitis of left foot Code(s): L03.116 - CELLULITIS OF LEFT LOWER LIMB (3) Diabetic foot ulcer Code(s): E11.621 - TYPE 2 DIABETES MELLITUS WITH FOOT ULCER; L97.509 - NON- PRESSURE CHRONIC ULCER OTH PRT UNSP FOOT W UNSP SEVERITY (4) Gangrene of toe of left foot Code(s): I96 - GANGRENE, NOT ELSEWHERE CLASSIFIED (5) ILD (interstitial lung disease) Code(s): J84.9 - INTERSTITIAL PULMONARY DISEASE, UNSPECIFIED (6) PVD (peripheral vascular disease) Code(s): I73.9 - PERIPHERAL VASCULAR DISEASE, UNSPECIFIED (7) Painful amputation stump Code(s): T87.89 - OTHER COMPLICATIONS OF AMPUTATION STUMP; M79.609 - PAIN IN UNSPECIFIED LIMB (8) Pneumonia Code(s): J18.9 - PNEUMONIA, UNSPECIFIED ORGANISM Qualifiers: Laterality: left Lung location: lower lobe of lung (9) Sepsis due to cellulitis Code(s): L03.90 - CELLULITIS, UNSPECIFIED; A41.9 - SEPSIS, UNSPECIFIED ORGANISM (10) Shortness of breath Code(s): R06.02 - SHORTNESS OF BREATH (11) Status post amputation of left great toe Code(s): Z89.412 - ACQUIRED ABSENCE OF LEFT GREAT TOE (12) Toe pain Code(s): M79.676 - PAIN IN UNSPECIFIED TOE(S) (13) Hypercholesterolemia Code(s): E78.00 - PURE HYPERCHOLESTEROLEMIA, UNSPECIFIED (14) Hypertension Code(s): I10 - ESSENTIAL (PRIMARY) HYPERTENSION (15) Recurrent pulmonary embolism Code(s): I26.99 - OTHER PULMONARY EMBOLISM WITHOUT ACUTE COR PULMONALE (16) Rheumatoid arthritis Code(s): M06.9 - RHEUMATOID ARTHRITIS, UNSPECIFIED (17) Type 2 diabetes mellitus Code(s): E11.9 - TYPE 2 DIABETES MELLITUS WITHOUT COMPLICATIONS (18) Venous insufficiency Code(s): I87.2 - VENOUS INSUFFICIENCY (CHRONIC) (PERIPHERAL) Assessment/Plan 64-year-old male with past medical history of hypertension hyperlipidemia rheumatoid arthritis GERD JAMES also PE coronary artery disease diabetes with neuropathy admitted for left foot osteomyelitis status post below-knee amputation. Cardiac castro stable Cont AC Will check EKG
--- NOTE | 2020-03-25 17:40 | PATH ---
Surgical Pathology Report Patient Name: FATOUMATA ELIAS Med. Rec. #: [id number] /Age/Gender: 1955 (Age: 64) / M Account: [id number] Location: [facility] MED/SURG Taken: 03/22/2020 Received: 03/22/2020 Reported: 03/25/2020 Physicians: Torres Pearl Specimen(s) Received LEFT LEG BELOW KNEE AMPUTATION Clinical History Non-pressure chronic ulcer, left foot Final Diagnosis LEG, LEFT, BELOW THE KNEE AMPUTATION: LOWER LEG AND PORTION OF PREVIOUSLY AMPUTATED FOOT WITH MARKED ACUTE AND CHRONIC GANGRENOUS NECROSIS INVOLVING SURGICAL STUMP. UNDERLYING BONE WITH ACUTE OSTEOMYELITIS. SURGICAL MARGINS ARE VIABLE; BONE MARGIN IS NEGATIVE FOR OSTEOMYELITIS. ANTERIOR AND POSTERIOR TIBIAL ARTERIES WITH MODERATE TO SEVERE CALCIFIC ARTERIOSCLEROSIS. Electronically Signed Candie Iqbal M.D. Gross Description Received fresh labeled "left leg below the knee," is a below the knee of amputation. Surgical stump consistent with prior transmetatarsal amputation is noted. The specimen measures 14 cm from stump to heel; 17 cm from heel to soft tissue margin; and 18 cm from heel to exposed bone. The previous amputation stump shows a solitario-black, gangrenous lesion possibly involving the underlying bone. The skin, soft tissue and bone margins appear grossly viable. Sectioning of the vasculature displays segmental, moderate to severe arteriosclerosis. Nsh Teacher sections are submitted after brief decalcification in 6 cassettes as follows: 1- soft tissue margin; 2- bone surgical margin; 3-gangrenous lesion; 4- underlying bone of gangrenous lesion; 5-anterior tibial artery; 6-posterior tibial artery. MLAsuncionZ/03/22/2020 [place]/03/22/2020
--- NOTE | 2020-03-25 18:22 | PN ---
Physical Exam: SUBJECTIVE: Patient seen and examined. Pt. endorses increased sputum and coughing. Pt. states that pain is better controlled. Pt. apprehensive about current medical situation. OBJECTIVE: Vital Signs Period Temp Pulse Resp BP Sys/Dawson Pulse Ox Last 24 Hr 98.6 F-99.7 F 90-98 18-20 101-132/58-68 97-98 GENERAL: The patient is awake, alert, and fully oriented, in no acute distress. HEAD: Normal with no signs of trauma. EYES: Sclera anicteric, conjunctiva clear. ENT: Ears normal, nares patent, oropharynx clear without exudates, moist mucous membranes. LUNGS: diffuse crackles bilaterally, no accessory muscle use. HEART: Regular rate and rhythm, S1, S2 without murmur, rub or gallop. ABDOMEN: Soft, nontender, nondistended, normoactive bowel sounds EXTREMITIES: 2+ R. dorsal pedal pulse, warm, no calf tenderness, well-perfused, no edema. LLE bandaged by wound care--> warm nontender NEUROLOGICAL: Normal speech, gait not observed. PSYCH: Normal mood, normal affect. SKIN: Warm, dry, normal turgor Laboratory Results - last 24 hr 03/21/20 03/24/20 03/25/20 17:25 21:22 06:16 WBC RBC Hgb Hct MCV MCH MCHC RDW Plt Count MPV Absolute Neuts (auto) Neutrophils % Neutrophils % (Manual) Band Neutrophils % Lymphocytes % Lymphocytes % (Manual) Monocytes % Monocytes % (Manual) Eosinophils % Eosinophils % (Manual) Basophils % Basophils % (Manual) Myelocytes % (Man) Promyelocytes % (Man) Blast Cells % (Manual) Nucleated RBC % Metamyelocytes Hypochromia Platelet Estimate Polychromasia Poikilocytosis Anisocytosis Microcytosis Macrocytosis Sodium Potassium Chloride Carbon Dioxide Anion Gap BUN Creatinine Est GFR (CKD-EPI)AfAm Est GFR (CKD-EPI)NonAf POC Glucometer 238 121 Random Glucose Calcium Total Bilirubin AST ALT Alkaline Phosphatase Total Protein Albumin Crossmatch See Detail 03/25/20 03/25/20 03/25/20 11:20 11:20 11:44 WBC 16.6 H RBC 3.27 L Hgb 9.3 L Hct 28.0 L MCV 85.6 MCH 28.3 MCHC 33.1 RDW 15.0 Plt Count 626 H D MPV 7.7 Absolute Neuts (auto) 12.9 H Neutrophils % 77.7 Neutrophils % (Manual) 74.8 Band Neutrophils % 0.0 Lymphocytes % 12.3 D Lymphocytes % (Manual) 17.5 D Monocytes % 5.9 Monocytes % (Manual) 0 L D Eosinophils % 3.3 Eosinophils % (Manual) 1.9 Basophils % 0.8 Basophils % (Manual) 0.0 Myelocytes % (Man) 3 H D Promyelocytes % (Man) 0 Blast Cells % (Manual) 0 Nucleated RBC % 0 Metamyelocytes 3 H D Hypochromia 0 Platelet Estimate Increased Polychromasia 0 Poikilocytosis 0 Anisocytosis 0 Microcytosis 0 Macrocytosis 0 Sodium 133 L Potassium 4.0 Chloride 99 Carbon Dioxide 28 Anion Gap 6 L BUN 14.9 Creatinine 0.9 Est GFR (CKD-EPI)AfAm 105.72 Est GFR (CKD-EPI)NonAf 91.22 POC Glucometer 230 Random Glucose 239 H Calcium 8.3 L Total Bilirubin 0.6 AST 27 ALT 28 Alkaline Phosphatase 131 H Total Protein 5.8 L Albumin 1.9 L Crossmatch 03/25/20 16:48 WBC RBC Hgb Hct MCV MCH MCHC RDW Plt Count MPV Absolute Neuts (auto) Neutrophils % Neutrophils % (Manual) Band Neutrophils % Lymphocytes % Lymphocytes % (Manual) Monocytes % Monocytes % (Manual) Eosinophils % Eosinophils % (Manual) Basophils % Basophils % (Manual) Myelocytes % (Man) Promyelocytes % (Man) Blast Cells % (Manual) Nucleated RBC % Metamyelocytes Hypochromia Platelet Estimate Polychromasia Poikilocytosis Anisocytosis Microcytosis Macrocytosis Sodium Potassium Chloride Carbon Dioxide Anion Gap BUN Creatinine Est GFR (CKD-EPI)AfAm Est GFR (CKD-EPI)NonAf POC Glucometer 293 Random Glucose Calcium Total Bilirubin AST ALT Alkaline Phosphatase Total Protein Albumin Crossmatch Active Medications Generic Name Dose Route Start Last Admin Trade Name Freq PRN Reason Stop Dose Admin Acetaminophen 325 mg 03/22/20 11:24 Tylenol - PO Q4H PRN FEVER Albuterol Sulfate 2 puff 03/22/20 11:24 Ventolin Hfa Inhaler - IH Q4H PRN SHORTNESS OF BREATH Albuterol/Ipratropium 1 amp 03/22/20 11:24 Duoneb - NEB Q4H PRN SHORTNESS OF BREATH Amino Acids 30 ml 03/22/20 17:30 03/25/20 17:06 Prosource No Carb Liquid Pkt PO 30 ml BID@0800,1730 ZAIN Administration Apixaban 5 mg 03/23/20 22:00 03/25/20 09:41 Eliquis - PO 5 mg BID ZAIN Administration Atorvastatin Calcium 20 mg 03/22/20 22:00 03/24/20 21:23 Lipitor - PO 20 mg HS ZAIN Administration Budesonide/Formoterol Fumarate 2 puff 03/22/20 22:00 03/25/20 09:45 Symbicort 160/4.5mcg - IH 2 puff BID ZAIN Administration Calcium Carbonate 500 mg 03/23/20 10:00 03/25/20 09:41 Os-Scott 500mg - PO 500 mg DAILY ZAIN Administration Docusate Sodium 100 mg 03/22/20 14:00 03/25/20 14:18 Colace - PO 100 mg TID ZAIN Administration Fentanyl 50 mcg 03/22/20 09:54 Sublimaze Injection - IVPUSH [id number] PRN PAIN-PACU ORDER X 4 DOSES ONLY Ferrous Sulfate 325 mg 03/22/20 17:30 03/25/20 17:06 Feosol - PO 325 mg BIDWM ZAIN Administration Folic Acid 1 mg 03/23/20 10:00 03/25/20 09:45 Folic Acid - PO 1 mg DAILY ZAIN Administration Piperacillin Sod/Tazobactam 50 mls @ 100 mls/hr 03/22/20 18:00 03/25/20 17:07 Sod 3.375 gm/ Dextrose IVPB 100 mls/hr Q8H-IV ZAIN Administration Protocol Insulin Aspart 1 vial 03/22/20 16:30 03/25/20 17:07 Novolog Vial Sliding Scale - SQ 6 units ACHS ZAIN Administration Protocol Insulin Detemir 10 units 03/23/20 07:30 03/25/20 09:49 Levemir Vial SQ 10 units BID ZAIN Administration Leflunomide 10 mg 03/23/20 10:00 03/25/20 09:41 Arava - PO 10 mg DAILY ZAIN Administration Loratadine 10 mg 03/23/20 10:00 03/25/20 09:41 Claritin - PO 10 mg DAILY ZAIN Administration Losartan Potassium 25 mg 03/23/20 10:00 03/25/20 09:41 Cozaar - PO 25 mg DAILY ZAIN Administration Methylprednisolone 4 mg 03/23/20 10:00 03/25/20 09:42 Medrol - PO 4 mg DAILY ZAIN Administration Metoprolol Tartrate 25 mg 03/23/20 10:00 03/25/20 09:41 Lopressor - PO 25 mg DAILY ZAIN Administration Multivitamins/Minerals/Vitamin C 1 tab 03/23/20 10:00 03/25/20 09:42 Tab-A-Vit - PO 1 tab DAILY ZAIN Administration Ondansetron HCl 4 mg 03/22/20 09:54 Zofran Injection IVPUSH Q6H PRN NAUSEA AND/OR VOMITING Ondansetron HCl 4 mg 03/22/20 11:24 Zofran Injection IVPUSH Q6H PRN NAUSEA AND/OR VOMITING Pantoprazole Sodium 40 mg 03/23/20 10:00 03/25/20 09:42 Protonix - PO 40 mg DAILY ZAIN Administration ASSESSMENT/PLAN: Pt. is a 64 y.o. M w/ PMHx. of HTN, DM, PVD, RA, GERD, Iron Deficiency Anemia and Hx. of PE presented with L. foot gangrene. Pt. is s/p L. TMA. #L. foot TMA and BKA s/p Left TMA 03/15 and Left BKA 03/22 Consults to wound care, Podiatry and ID appreciated continue IV Zosyn (Day 8)--> Will d/w ID about PICC line vs. Oral medication and duration; Given dose of Vancomycin today Clean margins as per surgical pathology report. The infected portion had OM, abscess formation, and necrosis( including the stump s/p TMA prior to BKA). Pain control Blood and Urine cultures have been negative here #HTN #DM #Hx. of multiple PE #ILD #PVD #GERD #RA #JAMES c/w home medications Levemir BID consult to Heme/Onc appreciated for history of multiple PE consult to Pulmonology appreciated for dyspnea, congested sounding cough in the setting of ILD--f/u CXR in AM #FEN LR @ 75 monitor electrolytes and replete as needed Diabetic/Sodium diet #DVT Ppx. Restarted Eliquis 5mg BID Visit type - Emergency Visit Emergency Visit: Yes ED Registration Date: 03/15/20 Care time: The patient presented to the Emergency Department on the above date and was hospitalized for further evaluation of their emergent condition. - New Patient This patient is new to me today: No - Critical Care Critical Care patient: No - Discharge Referral Referred to [facility] Med P.C.: No ATTENDING PHYSICIAN STATEMENT I saw and evaluated the patient. I reviewed the resident's note and discussed the case with the resident. I agree with the resident's findings and plan as documented. SUBJECTIVE: OBJECTIVE: ASSESSMENT AND PLAN:
[2020-03-25] MEDS: ATORVASTATIN CA 20 MG TABLET (FP) PO SCH (21:52)
[2020-03-25] MEDS: ACETAMINOPHEN 325 MG TABLET (FP) PO PRN (21:52)
[2020-03-26] MEDS ORDERED: PIPERACILLIN/TAZOBACTAM 3.375 GM VIAL IVPB ONE ×3 (00:35→18:09)
[2020-03-26] MEDS ORDERED: DEXTROSE 5%-WATER - 50 ML IVPB ONE ×3 (00:35→18:09)
[2020-03-26] MEDS: PIPERACILLIN/TAZOB 3.375 GM 3.375 GM in DEXTROSE 5%-WATER - 50 ML IVPB SCH ×3 (01:58→18:12)
[2020-03-26] MEDS: DOCUSATE SODIUM 100 MG CAPSULE (FP) PO SCH ×3 (05:54→21:11)
[2020-03-26] MEDS: INSULIN SLIDING SCALE (NOVOLOG) 1 VIAL SQ SCH ×4 (06:15→21:14)
[2020-03-26 07:39] LABS: BASO % 0.8 % (0-2.0); HEMATOCRIT 28.6 % (35.4-49); HEMOGLOBIN 9.3 GM/dL (11.7-16.9); LYMPH % 12.3 % (8-40); MCH 27.8 pg (25.7-33.7); MCHC 32.5 g/dl (32.0-35.9); MEAN CELL VOLUME 85.6 fl (80-96); MEAN PLT VOLUME 7.5 fl (7.5-11.1); MONO % 5.7 % (3.8-10.2); NEUT % 78.2 % (42.8-82.8); PLATELET COUNT 711 K/MM3 (134-434); RBC 3.34 M/mm3 (4.00-5.60); RDW 14.3 % (11.9-15.9); WHITE BLOOD COUNT 18.9 K/mm3 (4.0-10.0)
[2020-03-26 08:12] LABS: BILIRUBIN,TOTAL 0.9 mg/dL (0.2-1); BLOOD UREA NITROGEN 10.5 mg/dL (7-18); CALCIUM 8.7 mg/dL (8.5-10.1); CREATININE 0.6 mg/dL (0.55-1.3); MAGNESIUM 2.3 mg/dL (1.8-2.4); PHOSPHOROUS 2.7 mg/dL (2.5-4.9); POTASSIUM 4.1 mmol/L (3.5-5.1); TOT PROT 6.2 g/dl (6.4-8.2)
[2020-03-26] MEDS: ACETAMINOPHEN 325 MG TABLET (FP) PO PRN (08:42)
[2020-03-26] MEDS: FERROUS SO4 325 MG TABLET (FP) PO SCH ×2 (08:43→18:12)
[2020-03-26] MEDS: AMINO ACIDS/PROTEIN HYDROLYS 30 ML LIQUID.PKT PO SCH ×2 (08:43→18:12)
[2020-03-26 10:40] LABS: ANISOCYTOSIS 1+; MACROCYTOSIS 0; PLATELET ESTIMATE INCREASED
[2020-03-26] MEDS ORDERED: PT OWN MED DRAWER 7, Y5N ONE (10:47)
[2020-03-26] MEDS: APIXABAN 5 MG TABLET PO SCH ×2 (10:55→21:11)
[2020-03-26] MEDS: LEFLUNOMIDE 10 MG TABLET PO SCH (10:55)
[2020-03-26] MEDS: METOPROLOL TARTRATE 25 MG TABLET (FP) PO SCH (10:56)
[2020-03-26] MEDS: LOSARTAN POTASSIUM 25 MG TABLET PO SCH (10:56)
[2020-03-26] MEDS: PANTOPRAZOLE 20 MG TABLET PO SCH (10:56)
[2020-03-26] MEDS: MULTIVITAMINS (DAILY MVI) TABLET (FP) PO SCH (10:56)
[2020-03-26] MEDS: CALCIUM (OYSTER SHELL) 500 MG TABLET (FP) PO SCH (10:56)
[2020-03-26] MEDS: LORATADINE 10 MG TABLET PO SCH (10:56)
[2020-03-26] MEDS: methylPREDNISolone 4 MG TABLET PO SCH (10:57)
[2020-03-26] MEDS: FOLIC ACID 1 MG TABLET (FP) PO SCH (10:57)
[2020-03-26] MEDS: INSULIN (LEVEMIR) 100 UNITS/ML UNITS SQ SCH ×2 (10:58→21:13)
[2020-03-26] MEDS: BUDESONIDE/FORMETEROL FUMARATE 160/4.5 mcg INHALER IH SCH ×3 (11:03→21:23)
--- NOTE | 2020-03-26 11:17 | PN ---
Progress Note, Physician History of Present Illness: PULMONARY ALERT,COMFORTABLE,-SOB AT REST,LESS COUGH - Current Medication List Current Medications: Active Medications Acetaminophen (Tylenol -) 325 mg PO Q4H PRN PRN Reason: FEVER Last Admin: 03/26/20 08:42 Dose: 325 mg Documented by: Albuterol Sulfate (Ventolin Hfa Inhaler -) 2 puff IH Q4H PRN PRN Reason: SHORTNESS OF BREATH Albuterol/Ipratropium (Duoneb -) 1 amp NEB Q4H PRN PRN Reason: SHORTNESS OF BREATH Amino Acids (Prosource No Carb Liquid Pkt) 30 ml PO BID@0800,1730 [facility] Last Admin: 03/26/20 08:43 Dose: 30 ml Documented by: Apixaban (Eliquis -) 5 mg PO BID [facility] Last Admin: 03/26/20 10:55 Dose: 5 mg Documented by: Atorvastatin Calcium (Lipitor -) 20 mg PO HS [facility] Last Admin: 03/25/20 21:52 Dose: 20 mg Documented by: Budesonide/Formoterol Fumarate (Symbicort 160/4.5mcg -) 2 puff IH BID [facility] Last Admin: 03/26/20 11:05 Dose: 2 puff Documented by: Calcium Carbonate (Os-Scott 500mg -) 500 mg PO DAILY [facility] Last Admin: 03/26/20 10:56 Dose: 500 mg Documented by: Docusate Sodium (Colace -) 100 mg PO TID [facility] Last Admin: 03/26/20 05:54 Dose: 100 mg Documented by: Fentanyl (Sublimaze Injection -) 50 mcg IVPUSH [id number] PRN PRN Reason: PAIN-PACU ORDER X 4 DOSES ONLY Ferrous Sulfate (Feosol -) 325 mg PO BIDWM [facility] Last Admin: 03/26/20 08:43 Dose: 325 mg Documented by: Folic Acid (Folic Acid -) 1 mg PO DAILY [facility] Last Admin: 03/26/20 10:57 Dose: 1 mg Documented by: Piperacillin Sod/Tazobactam (Sod 3.375 gm/ Dextrose) 50 mls @ 100 mls/hr IVPB Q8H-IV [facility]; Protocol Last Admin: 03/26/20 10:56 Dose: 100 mls/hr Documented by: Insulin Aspart (Novolog Vial Sliding Scale -) 1 vial SQ ACHS [facility]; Protocol Last Admin: 03/26/20 06:15 Dose: Not Given Documented by: Insulin Detemir (Levemir Vial) 10 units SQ BID [facility] Last Admin: 03/26/20 10:58 Dose: 10 units Documented by: Leflunomide (Arava -) 10 mg PO DAILY [facility] Last Admin: 03/26/20 10:55 Dose: 10 mg Documented by: Loratadine (Claritin -) 10 mg PO DAILY [facility] Last Admin: 03/26/20 10:56 Dose: 10 mg Documented by: Losartan Potassium (Cozaar -) 25 mg PO DAILY [facility] Last Admin: 03/26/20 10:56 Dose: 25 mg Documented by: Methylprednisolone (Medrol -) 4 mg PO DAILY [facility] Last Admin: 03/26/20 10:57 Dose: 4 mg Documented by: Metoprolol Tartrate (Lopressor -) 25 mg PO DAILY [facility] Last Admin: 03/26/20 10:56 Dose: 25 mg Documented by: Multivitamins/Minerals/Vitamin C (Tab-A-Vit -) 1 tab PO DAILY [facility] Last Admin: 03/26/20 10:56 Dose: 1 tab Documented by: Ondansetron HCl (Zofran Injection) 4 mg IVPUSH Q6H PRN PRN Reason: NAUSEA AND/OR VOMITING Ondansetron HCl (Zofran Injection) 4 mg IVPUSH Q6H PRN PRN Reason: NAUSEA AND/OR VOMITING Pantoprazole Sodium (Protonix -) 40 mg PO DAILY [facility] Last Admin: 03/26/20 10:56 Dose: 40 mg Documented by: - Objective Vital Signs: Vital Signs Temperature 98.9 F 03/26/20 06:00 Pulse Rate 90 03/26/20 06:00 Respiratory Rate 22 H 03/26/20 06:00 Blood Pressure 128/77 03/26/20 06:00 O2 Sat by Pulse Oximetry (%) 98 03/26/20 06:00 Constitutional: Yes: Calm, Thin Eyes: Yes: WNL HENT: Yes: WNL Neck: Yes: WNL Cardiovascular: Yes: Regular Rate and Rhythm, S1, S2 Respiratory: Yes: Rales (JANY CRACKLES) Gastrointestinal: Yes: Normal Bowel Sounds, Soft Extremities: Yes: WNL Edema: No Labs: CBC, BMP 03/26/20 06:30 03/26/20 06:30 Problem List - Problems (1) S/P transmetatarsal amputation of foot Code(s): Z89.439 - ACQUIRED ABSENCE OF UNSPECIFIED FOOT (2) Diabetic foot ulcer Code(s): E11.621 - TYPE 2 DIABETES MELLITUS WITH FOOT ULCER; L97.509 - NON- PRESSURE CHRONIC ULCER OTH PRT UNSP FOOT W UNSP SEVERITY (3) Gangrene of toe of left foot Code(s): I96 - GANGRENE, NOT ELSEWHERE CLASSIFIED (4) ILD (interstitial lung disease) Code(s): J84.9 - INTERSTITIAL PULMONARY DISEASE, UNSPECIFIED (5) PVD (peripheral vascular disease) Code(s): I73.9 - PERIPHERAL VASCULAR DISEASE, UNSPECIFIED (6) Painful amputation stump Code(s): T87.89 - OTHER COMPLICATIONS OF AMPUTATION STUMP; M79.609 - PAIN IN UNSPECIFIED LIMB (7) Pneumonia Code(s): J18.9 - PNEUMONIA, UNSPECIFIED ORGANISM Qualifiers: Laterality: left Lung location: lower lobe of lung (8) Shortness of breath Code(s): R06.02 - SHORTNESS OF BREATH (9) Hypertension Code(s): I10 - ESSENTIAL (PRIMARY) HYPERTENSION (10) Recurrent pulmonary embolism Code(s): I26.99 - OTHER PULMONARY EMBOLISM WITHOUT ACUTE COR PULMONALE (11) Type 2 diabetes mellitus Code(s): E11.9 - TYPE 2 DIABETES MELLITUS WITHOUT COMPLICATIONS Assessment/Plan IMP DYSPNEA ILD/BRONCHIECTASIS H/O RECURRENT PE 2014,2017 H/O OPEN HEART SURGERY SECONDARY TP PE ? THROMBECTOMY RLL LUNG NODULE ?LLL INFILTRATE HTN PVD DM HLD CHRONIC OSTEOMYELITIS ANEMIA PLAN SUPPLEMENTAL O2 INHALED BRONCHODILATORS ABX PER ID WOUND CARE MONITOR LYTES,H+H F/U CHEST X-RAYS DR PLASCENCIA Problem List - Problems (1) S/P transmetatarsal amputation of foot Code(s): Z89.439 - ACQUIRED ABSENCE OF UNSPECIFIED FOOT (2) Diabetic foot ulcer Code(s): E11.621 - TYPE 2 DIABETES MELLITUS WITH FOOT ULCER; L97.509 - NON- PRESSURE CHRONIC ULCER OTH PRT UNSP FOOT W UNSP SEVERITY (3) Gangrene of toe of left foot Code(s): I96 - GANGRENE, NOT ELSEWHERE CLASSIFIED (4) ILD (interstitial lung disease) Code(s): J84.9 - INTERSTITIAL PULMONARY DISEASE, UNSPECIFIED (5) PVD (peripheral vascular disease) Code(s): I73.9 - PERIPHERAL VASCULAR DISEASE, UNSPECIFIED (6) Painful amputation stump Code(s): T87.89 - OTHER COMPLICATIONS OF AMPUTATION STUMP; M79.609 - PAIN IN UNSPECIFIED LIMB (7) Pneumonia Code(s): J18.9 - PNEUMONIA, UNSPECIFIED ORGANISM Qualifiers: Laterality: left Lung location: lower lobe of lung (8) Shortness of breath Code(s): R06.02 - SHORTNESS OF BREATH (9) Hypertension Code(s): I10 - ESSENTIAL (PRIMARY) HYPERTENSION (10) Recurrent pulmonary embolism Code(s): I26.99 - OTHER PULMONARY EMBOLISM WITHOUT ACUTE COR PULMONALE (11) Type 2 diabetes mellitus Code(s): E11.9 - TYPE 2 DIABETES MELLITUS WITHOUT COMPLICATIONS
--- NOTE | 2020-03-26 11:38 | PN ---
Progress Note, Physician History of Present Illness: continues to improve pain still present wbc still high - Current Medication List Current Medications: Active Medications Acetaminophen (Tylenol -) 325 mg PO Q4H PRN PRN Reason: FEVER Last Admin: 03/26/20 08:42 Dose: 325 mg Documented by: Albuterol Sulfate (Ventolin Hfa Inhaler -) 2 puff IH Q4H PRN PRN Reason: SHORTNESS OF BREATH Albuterol/Ipratropium (Duoneb -) 1 amp NEB Q4H PRN PRN Reason: SHORTNESS OF BREATH Amino Acids (Prosource No Carb Liquid Pkt) 30 ml PO BID@0800,1730 [facility] Last Admin: 03/26/20 08:43 Dose: 30 ml Documented by: Apixaban (Eliquis -) 5 mg PO BID [facility] Last Admin: 03/26/20 10:55 Dose: 5 mg Documented by: Atorvastatin Calcium (Lipitor -) 20 mg PO HS [facility] Last Admin: 03/25/20 21:52 Dose: 20 mg Documented by: Budesonide/Formoterol Fumarate (Symbicort 160/4.5mcg -) 2 puff IH BID [facility] Last Admin: 03/26/20 11:05 Dose: 2 puff Documented by: Calcium Carbonate (Os-Scott 500mg -) 500 mg PO DAILY [facility] Last Admin: 03/26/20 10:56 Dose: 500 mg Documented by: Docusate Sodium (Colace -) 100 mg PO TID [facility] Last Admin: 03/26/20 05:54 Dose: 100 mg Documented by: Fentanyl (Sublimaze Injection -) 50 mcg IVPUSH [id number] PRN PRN Reason: PAIN-PACU ORDER X 4 DOSES ONLY Ferrous Sulfate (Feosol -) 325 mg PO BIDWM [facility] Last Admin: 03/26/20 08:43 Dose: 325 mg Documented by: Folic Acid (Folic Acid -) 1 mg PO DAILY [facility] Last Admin: 03/26/20 10:57 Dose: 1 mg Documented by: Piperacillin Sod/Tazobactam (Sod 3.375 gm/ Dextrose) 50 mls @ 100 mls/hr IVPB Q8H-IV [facility]; Protocol Last Admin: 03/26/20 10:56 Dose: 100 mls/hr Documented by: Insulin Aspart (Novolog Vial Sliding Scale -) 1 vial SQ ACHS [facility]; Protocol Last Admin: 03/26/20 06:15 Dose: Not Given Documented by: Insulin Detemir (Levemir Vial) 10 units SQ BID [facility] Last Admin: 03/26/20 10:58 Dose: 10 units Documented by: Leflunomide (Arava -) 10 mg PO DAILY [facility] Last Admin: 03/26/20 10:55 Dose: 10 mg Documented by: Loratadine (Claritin -) 10 mg PO DAILY [facility] Last Admin: 03/26/20 10:56 Dose: 10 mg Documented by: Losartan Potassium (Cozaar -) 25 mg PO DAILY [facility] Last Admin: 03/26/20 10:56 Dose: 25 mg Documented by: Methylprednisolone (Medrol -) 4 mg PO DAILY [facility] Last Admin: 03/26/20 10:57 Dose: 4 mg Documented by: Metoprolol Tartrate (Lopressor -) 25 mg PO DAILY [facility] Last Admin: 03/26/20 10:56 Dose: 25 mg Documented by: Multivitamins/Minerals/Vitamin C (Tab-A-Vit -) 1 tab PO DAILY [facility] Last Admin: 03/26/20 10:56 Dose: 1 tab Documented by: Ondansetron HCl (Zofran Injection) 4 mg IVPUSH Q6H PRN PRN Reason: NAUSEA AND/OR VOMITING Ondansetron HCl (Zofran Injection) 4 mg IVPUSH Q6H PRN PRN Reason: NAUSEA AND/OR VOMITING Pantoprazole Sodium (Protonix -) 40 mg PO DAILY [facility] Last Admin: 03/26/20 10:56 Dose: 40 mg Documented by: - Objective Vital Signs: Vital Signs Temperature 98.9 F 03/26/20 06:00 Pulse Rate 90 03/26/20 06:00 Respiratory Rate 22 H 03/26/20 06:00 Blood Pressure 128/77 03/26/20 06:00 O2 Sat by Pulse Oximetry (%) 98 03/26/20 06:00 Constitutional: Yes: Calm, Mild Distress Cardiovascular: Yes: S1, S2 Respiratory: Yes: Regular, CTA Bilaterally Gastrointestinal: Yes: Normal Bowel Sounds, Soft Musculoskeletal: Yes: WNL Extremities: Yes: Other Neurological: Yes: Alert, Oriented Psychiatric: Yes: Alert, Oriented Labs: CBC, BMP 03/26/20 06:30 03/26/20 06:30 Assessment/Plan 64 y.o. M w/ PMHx. of HTN, DM, PVD, RA, GERD, Iron Deficiency Anemia and Hx. of PE presented with L. foot gangrene. Pt. is s/p L. TMA L. foot TMA htn pna dm gerd h/o of pe plan continue abx wound care monitor wbc rest as per the team
--- NOTE | 2020-03-26 14:53 | PN ---
Teaching Attending Note Name of Resident: Antione Saleem ATTENDING PHYSICIAN STATEMENT I saw and evaluated the patient. I reviewed the resident's note and discussed the case with the resident. I agree with the resident's findings and plan as documented. SUBJECTIVE: Seen and examined at bedside. Patient states pain is controlled and denies evan rtness of breath, chest pain. White count noted to be increasing. ESR/CRP sent OBJECTIVE Last Vital Signs Temp Pulse Resp BP Pulse Ox 98.6 F 88 20 119/68 94 L 03/26/20 14:25 03/26/20 14:25 03/26/20 14:25 03/26/20 14:25 03/26/20 14:25 PE: Per resident note Labs/Imaging: reviewed ASSESSMENT/PLAN 64-year-old male with past medical history of hypertension, diabetes, PVD, RA, GERD, iron deficiency anemia presents with left foot gangrene. 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 #Left foot TMA and BKA Wound care, podiatry, and ID on board: Appreciate recommendations Continue IV Zosyn White count increasing. Currently afebrile Send ESR/CRP #Leukocytosis Previously downtrending, now increasing Is on methylprednisolone chronically but dose has not changed during hospitalization Check for alternate areas of infection Chest x-ray unremarkable #Hypertension, diabetes, history of multiple PE, ILD, PVD, GERD, RA, JAMES Continue home medications
--- NOTE | 2020-03-26 15:37 | PN ---
Progress Note, Physician History of Present Illness: 64-year-old male with past medical history of hypertension hyperlipidemia rheumatoid arthritis GERD JAMES also PE coronary artery disease diabetes with neuropathy admitted for left foot osteomyelitis status post below-knee amputation. PMH Asthma Bronchiectasis Type 2 Diabetes 2000 Esophageal Reflux Hypertension Pulmonary Embolism 2014. treated for 1 year Recurrent pulmonary emboli s/p embolectomy Feb 2018 Rheumatoid Arthritis Spondylosis Hyperlipidemia - Current Medication List Current Medications: Active Medications Acetaminophen (Tylenol -) 325 mg PO Q4H PRN PRN Reason: FEVER Last Admin: 03/26/20 08:42 Dose: 325 mg Documented by: Albuterol Sulfate (Ventolin Hfa Inhaler -) 2 puff IH Q4H PRN PRN Reason: SHORTNESS OF BREATH Albuterol/Ipratropium (Duoneb -) 1 amp NEB Q4H PRN PRN Reason: SHORTNESS OF BREATH Amino Acids (Prosource No Carb Liquid Pkt) 30 ml PO BID@0800,1730 [facility] Last Admin: 03/26/20 08:43 Dose: 30 ml Documented by: Apixaban (Eliquis -) 5 mg PO BID [facility] Last Admin: 03/26/20 10:55 Dose: 5 mg Documented by: Atorvastatin Calcium (Lipitor -) 20 mg PO HS [facility] Last Admin: 03/25/20 21:52 Dose: 20 mg Documented by: Budesonide/Formoterol Fumarate (Symbicort 160/4.5mcg -) 2 puff IH BID [facility] Last Admin: 03/26/20 11:05 Dose: 2 puff Documented by: Calcium Carbonate (Os-Scott 500mg -) 500 mg PO DAILY [facility] Last Admin: 03/26/20 10:56 Dose: 500 mg Documented by: Docusate Sodium (Colace -) 100 mg PO TID [facility] Last Admin: 03/26/20 13:49 Dose: 100 mg Documented by: Fentanyl (Sublimaze Injection -) 50 mcg IVPUSH [id number] PRN PRN Reason: PAIN-PACU ORDER X 4 DOSES ONLY Ferrous Sulfate (Feosol -) 325 mg PO BIDWM [facility] Last Admin: 03/26/20 08:43 Dose: 325 mg Documented by: Folic Acid (Folic Acid -) 1 mg PO DAILY [facility] Last Admin: 03/26/20 10:57 Dose: 1 mg Documented by: Piperacillin Sod/Tazobactam (Sod 3.375 gm/ Dextrose) 50 mls @ 100 mls/hr IVPB Q8H-IV [facility]; Protocol Last Admin: 03/26/20 10:56 Dose: 100 mls/hr Documented by: Insulin Aspart (Novolog Vial Sliding Scale -) 1 vial SQ ACHS [facility]; Protocol Last Admin: 03/26/20 13:48 Dose: 6 units Documented by: Insulin Detemir (Levemir Vial) 10 units SQ BID [facility] Last Admin: 03/26/20 10:58 Dose: 10 units Documented by: Leflunomide (Arava -) 10 mg PO DAILY [facility] Last Admin: 03/26/20 10:55 Dose: 10 mg Documented by: Loratadine (Claritin -) 10 mg PO DAILY [facility] Last Admin: 03/26/20 10:56 Dose: 10 mg Documented by: Losartan Potassium (Cozaar -) 25 mg PO DAILY [facility] Last Admin: 03/26/20 10:56 Dose: 25 mg Documented by: Methylprednisolone (Medrol -) 4 mg PO DAILY [facility] Last Admin: 03/26/20 10:57 Dose: 4 mg Documented by: Metoprolol Tartrate (Lopressor -) 25 mg PO DAILY [facility] Last Admin: 03/26/20 10:56 Dose: 25 mg Documented by: Multivitamins/Minerals/Vitamin C (Tab-A-Vit -) 1 tab PO DAILY [facility] Last Admin: 03/26/20 10:56 Dose: 1 tab Documented by: Ondansetron HCl (Zofran Injection) 4 mg IVPUSH Q6H PRN PRN Reason: NAUSEA AND/OR VOMITING Ondansetron HCl (Zofran Injection) 4 mg IVPUSH Q6H PRN PRN Reason: NAUSEA AND/OR VOMITING Pantoprazole Sodium (Protonix -) 40 mg PO DAILY [facility] Last Admin: 03/26/20 10:56 Dose: 40 mg Documented by: - Objective Vital Signs: Vital Signs Temperature 98.6 F 03/26/20 14:25 Pulse Rate 88 03/26/20 14:25 Respiratory Rate 20 03/26/20 14:25 Blood Pressure 119/68 03/26/20 14:25 O2 Sat by Pulse Oximetry (%) 94 L 03/26/20 14:25 Eyes: Yes: WNL, Conjunctiva Clear, EOM Intact HENT: Yes: WNL, Atraumatic, Normocephalic Neck: Yes: WNL, Supple, Trachea Midline Cardiovascular: Yes: WNL, Regular Rate and Rhythm Respiratory: Yes: WNL, Regular, CTA Bilaterally Gastrointestinal: Yes: WNL, Normal Bowel Sounds Genitourinary: Yes: WNL Musculoskeletal: Yes: WNL Extremities: Yes: Amputation Edema: No Integumentary: Yes: WNL Neurological: Yes: WNL, Alert, Oriented ...Motor Strength: WNL Psychiatric: Yes: WNL Labs: CBC, BMP 03/26/20 06:30 03/26/20 06:30 Problem List - Problems (1) S/P transmetatarsal amputation of foot Code(s): Z89.439 - ACQUIRED ABSENCE OF UNSPECIFIED FOOT (2) Cellulitis of left foot Code(s): L03.116 - CELLULITIS OF LEFT LOWER LIMB (3) Diabetic foot ulcer Code(s): E11.621 - TYPE 2 DIABETES MELLITUS WITH FOOT ULCER; L97.509 - NON- PRESSURE CHRONIC ULCER OTH PRT UNSP FOOT W UNSP SEVERITY (4) Gangrene of toe of left foot Code(s): I96 - GANGRENE, NOT ELSEWHERE CLASSIFIED (5) ILD (interstitial lung disease) Code(s): J84.9 - INTERSTITIAL PULMONARY DISEASE, UNSPECIFIED (6) PVD (peripheral vascular disease) Code(s): I73.9 - PERIPHERAL VASCULAR DISEASE, UNSPECIFIED (7) Painful amputation stump Code(s): T87.89 - OTHER COMPLICATIONS OF AMPUTATION STUMP; M79.609 - PAIN IN UNSPECIFIED LIMB (8) Pneumonia Code(s): J18.9 - PNEUMONIA, UNSPECIFIED ORGANISM Qualifiers: Laterality: left Lung location: lower lobe of lung (9) Sepsis due to cellulitis Code(s): L03.90 - CELLULITIS, UNSPECIFIED; A41.9 - SEPSIS, UNSPECIFIED ORGANISM (10) Shortness of breath Code(s): R06.02 - SHORTNESS OF BREATH (11) Status post amputation of left great toe Code(s): Z89.412 - ACQUIRED ABSENCE OF LEFT GREAT TOE (12) Toe pain Code(s): M79.676 - PAIN IN UNSPECIFIED TOE(S) (13) Hypercholesterolemia Code(s): E78.00 - PURE HYPERCHOLESTEROLEMIA, UNSPECIFIED (14) Hypertension Code(s): I10 - ESSENTIAL (PRIMARY) HYPERTENSION (15) Recurrent pulmonary embolism Code(s): I26.99 - OTHER PULMONARY EMBOLISM WITHOUT ACUTE COR PULMONALE (16) Rheumatoid arthritis Code(s): M06.9 - RHEUMATOID ARTHRITIS, UNSPECIFIED (17) Type 2 diabetes mellitus Code(s): E11.9 - TYPE 2 DIABETES MELLITUS WITHOUT COMPLICATIONS (18) Venous insufficiency Code(s): I87.2 - VENOUS INSUFFICIENCY (CHRONIC) (PERIPHERAL) Assessment/Plan 64-year-old male with past medical history of hypertension hyperlipidemia rheumatoid arthritis GERD AJMES also PE coronary artery disease diabetes with neuropathy admitted for left foot osteomyelitis status post below-knee amputation. Cardiac castro stable Cont AC Will check EKG
--- NOTE | 2020-03-26 16:19 | EKG ---
Test Reason : Blood Pressure : / mmHG Vent. Rate : 088 BPM Atrial Rate : 088 BPM P-R Int : 172 ms QRS Dur : 104 ms QT Int : 398 ms P-R-T Axes : 035 -48 006 degrees QTc Int : 481 ms NORMAL SINUS RHYTHM LEFT ANTERIOR FASCICULAR BLOCK PROLONGED QT ABNORMAL ECG WHEN COMPARED WITH ECG OF 30-JAN-2020 01:16, NO SIGNIFICANT CHANGE WAS FOUND Confirmed by MD JOMAR, TERRI ([id number]) on 03/26/2020 4:18:40 PM Referred By: Jamar LING Confirmed By:TERRI HADLEY MD
--- NOTE | 2020-03-26 16:43 | PN ---
Teaching Attending Note Name of Resident: Antione Saleem ATTENDING PHYSICIAN STATEMENT I saw and evaluated the patient. I reviewed the resident's note and discussed the case with the resident. I agree with the resident's findings and plan as documented. SUBJECTIVE: Patient seen and examined at bedside, s/p L BKA POD#3, no fevers overnight, VSS. OBJECTIVE: GENERAL: Awake, alert, and fully oriented, in no acute distress. EYES: PEERLA; EOMI; no scleral icterus. NECK: no JVD; no lymphadenopathy LUNGS: CTA B.L; no rales, rhonchi or wheezing HEART: RRR, normal S1 and S2 without murmur, rub or gallop. ABDOMEN: Soft, NT/ND +BS in all 4 quadrants . LOWER EXTREMITIES: L BKA with cast/wound dressing, RLE venous stasis, no RLE edema PSYCHIATRIC: Cooperative. Good eye contact. Appropriate mood and affect. Vital Signs (72 hours) 03/23/20 03/23/20 03/23/20 18:35 19:59 20:39 Temperature 99.1 F 99.1 F Pulse Rate 86 91 H Respiratory 18 20 20 Rate Blood Pressure 144/81 146/88 O2 Sat by Pulse 100 99 99 Oximetry (%) 03/24/20 03/24/20 03/24/20 05:39 13:00 19:25 Temperature 98.5 F 98.9 F 98.6 F Pulse Rate 83 85 96 H Respiratory 20 18 20 Rate Blood Pressure 132/62 135/70 101/59 L O2 Sat by Pulse 98 97 Oximetry (%) 03/24/20 03/25/20 03/25/20 20:14 05:00 08:00 Temperature 98.7 F 99 F Pulse Rate 98 H 93 H Respiratory 20 18 18 Rate Blood Pressure 121/58 L 116/64 O2 Sat by Pulse 97 98 98 Oximetry (%) 03/25/20 03/25/20 03/25/20 09:00 14:00 17:17 Temperature 98.9 F 99.7 F H Pulse Rate 90 94 H Respiratory 18 18 18 Rate Blood Pressure 120/68 132/62 O2 Sat by Pulse 98 98 Oximetry (%) 03/25/20 03/25/20 03/26/20 19:42 20:46 06:00 Temperature 98.1 F 98.9 F Pulse Rate 93 H 90 Respiratory 22 H 22 H 22 H Rate Blood Pressure 141/65 128/77 O2 Sat by Pulse 98 98 98 Oximetry (%) 03/26/20 03/26/20 09:00 14:25 Temperature 98.6 F Pulse Rate 88 Respiratory 20 20 Rate Blood Pressure 119/68 O2 Sat by Pulse 94 L 94 L Oximetry (%) Microbiology 03/18/20 08:10 Blood - Peripheral Venous Blood Culture - Final NO GROWTH AFTER 5 DAYS INCUBATION 03/18/20 08:20 Blood - Peripheral Venous Blood Culture - Final NO GROWTH AFTER 5 DAYS INCUBATION 03/18/20 15:15 Urine - Urine Clean Catch Urine Culture - Final NO GROWTH OBTAINED Laboratory Results - last 24 hr 03/25/20 03/25/20 03/26/20 16:48 21:49 06:15 WBC RBC Hgb Hct MCV MCH MCHC RDW Plt Count MPV Absolute Neuts (auto) Neutrophils % Neutrophils % (Manual) Band Neutrophils % Lymphocytes % Lymphocytes % (Manual) Monocytes % Monocytes % (Manual) Eosinophils % Eosinophils % (Manual) Basophils % Basophils % (Manual) Myelocytes % (Man) Promyelocytes % (Man) Blast Cells % (Manual) Nucleated RBC % Metamyelocytes Hypochromia Platelet Estimate Polychromasia Poikilocytosis Anisocytosis Microcytosis Macrocytosis Sodium Potassium Chloride Carbon Dioxide Anion Gap BUN Creatinine Est GFR (CKD-EPI)AfAm Est GFR (CKD-EPI)NonAf POC Glucometer 293 243 141 Random Glucose Calcium Phosphorus Magnesium Total Bilirubin AST ALT Alkaline Phosphatase Total Protein Albumin 03/26/20 03/26/20 03/26/20 06:30 06:30 12:45 WBC 18.9 H RBC 3.34 L Hgb 9.3 L Hct 28.6 L MCV 85.6 MCH 27.8 MCHC 32.5 RDW 14.3 Plt Count 711 H MPV 7.5 Absolute Neuts (auto) 14.8 H Neutrophils % 78.2 Neutrophils % (Manual) 80.8 Band Neutrophils % 1.0 Lymphocytes % 12.3 Lymphocytes % (Manual) 7.1 L D Monocytes % 5.7 Monocytes % (Manual) 3 L D Eosinophils % 3.0 Eosinophils % (Manual) 4.1 D Basophils % 0.8 Basophils % (Manual) 0.0 Myelocytes % (Man) 3 H Promyelocytes % (Man) 0 Blast Cells % (Manual) 0 Nucleated RBC % 0 Metamyelocytes 1 D Hypochromia 0 Platelet Estimate Increased Polychromasia 0 Poikilocytosis 0 Anisocytosis 1+ Microcytosis 1+ Macrocytosis 0 Sodium 135 L Potassium 4.1 Chloride 103 Carbon Dioxide 23 Anion Gap 8 BUN 10.5 Creatinine 0.6 Est GFR (CKD-EPI)AfAm 124.89 Est GFR (CKD-EPI)NonAf 107.76 POC Glucometer 263 Random Glucose 144 H Calcium 8.7 Phosphorus 2.7 Magnesium 2.3 Total Bilirubin 0.9 AST 27 ALT 29 Alkaline Phosphatase 147 H Total Protein 6.2 L Albumin 2.0 L 03/26/20 16:38 WBC RBC Hgb Hct MCV MCH MCHC RDW Plt Count MPV Absolute Neuts (auto) Neutrophils % Neutrophils % (Manual) Band Neutrophils % Lymphocytes % Lymphocytes % (Manual) Monocytes % Monocytes % (Manual) Eosinophils % Eosinophils % (Manual) Basophils % Basophils % (Manual) Myelocytes % (Man) Promyelocytes % (Man) Blast Cells % (Manual) Nucleated RBC % Metamyelocytes Hypochromia Platelet Estimate Polychromasia Poikilocytosis Anisocytosis Microcytosis Macrocytosis Sodium Potassium Chloride Carbon Dioxide Anion Gap BUN Creatinine Est GFR (CKD-EPI)AfAm Est GFR (CKD-EPI)NonAf POC Glucometer 284 Random Glucose Calcium Phosphorus Magnesium Total Bilirubin AST ALT Alkaline Phosphatase Total Protein Albumin Home Medications Medication Instructions Recorded Calcium Carbonate [Oysco-500] 500 mg PO DAILY 07/08/19 Ferrous Sulfate 1 tab PO BID 10/09/19 Apixaban [Eliquis -] 5 mg PO BID 01/30/20 Atorvastatin Ca [Lipitor] 20 mg PO HS 01/30/20 Insulin Glargine,Hum.rec.anlog 10 unit SQ HS 01/30/20 [Basaglar Kwikpen U-100] Insulin Lispro [Admelog] 10 unit SQ AC 01/30/20 Leflunomide 10 mg PO DAILY 01/30/20 Methylprednisolone [Medrol -] 4 mg PO DAILY 01/30/20 Metoprolol Tartrate 25 mg PO DAILY 01/30/20 Omeprazole 20 mg PO DAILY 01/30/20 Telmisartan 20 mg PO DAILY 01/30/20 metFORMIN HCL [Metformin ER 1,000 mg PO DAILY 01/30/20 Osmotic] Albuterol Sulfate Inhaler - 1 - 2 inh PO Q4H #1 inhaler 01/31/20 [Ventolin HFA Inhaler -] Multivitamin [Multiple Vitamins] 1 tab PO DAILY 02/02/20 Vitamin C 1 tab PO DAILY 02/02/20 Zinc 1 tab PO DAILY 02/02/20 Collagenase Clostridium Hist. 1 applic TP DAILY #90 oint...g. 02/16/20 [Santyl] Acetaminophen [Tylenol 500 mg PO Q8H 03/13/20 .Extra-Strength -] Cetirizine HCl 10 mg PO DAILY 03/13/20 Folic Acid 1 mg PO DAILY 03/13/20 Current Medications Generic Name Dose Route Start Last Admin Trade Name Freq PRN Reason Stop Dose Admin Acetaminophen 325 mg 03/22/20 11:24 03/26/20 08:42 Tylenol - PO 325 mg Q4H PRN Administration FEVER Albuterol Sulfate 2 puff 03/22/20 11:24 Ventolin Hfa Inhaler - IH Q4H PRN SHORTNESS OF BREATH Albuterol/Ipratropium 1 amp 03/22/20 11:24 Duoneb - NEB Q4H PRN SHORTNESS OF BREATH Amino Acids 30 ml 03/22/20 17:30 03/26/20 08:43 Prosource No Carb Liquid Pkt PO 30 ml BID@0800,1730 [facility] Administration Apixaban 5 mg 03/23/20 22:00 03/26/20 10:55 Eliquis - PO 5 mg BID [facility] Administration Atorvastatin Calcium 20 mg 03/22/20 22:00 03/25/20 21:52 Lipitor - PO 20 mg HS [facility] Administration Budesonide/Formoterol Fumarate 2 puff 03/22/20 22:00 03/26/20 11:05 Symbicort 160/4.5mcg - IH 2 puff BID [facility] Administration Calcium Carbonate 500 mg 03/23/20 10:00 03/26/20 10:56 Os-Scott 500mg - PO 500 mg DAILY [facility] Administration Docusate Sodium 100 mg 03/22/20 14:00 03/26/20 13:49 Colace - PO 100 mg TID [facility] Administration Fentanyl 50 mcg 03/22/20 09:54 Sublimaze Injection - IVPUSH [id number] PRN PAIN-PACU ORDER X 4 DOSES ONLY Ferrous Sulfate 325 mg 03/22/20 17:30 03/26/20 08:43 Feosol - PO 325 mg BIDWM [facility] Administration Folic Acid 1 mg 03/23/20 10:00 03/26/20 10:57 Folic Acid - PO 1 mg DAILY [facility] Administration Piperacillin Sod/Tazobactam 50 mls @ 100 mls/hr 03/22/20 18:00 03/26/20 10:56 Sod 3.375 gm/ Dextrose IVPB 100 mls/hr Q8H-IV [facility] Administration Protocol Insulin Aspart 1 vial 03/22/20 16:30 03/26/20 13:48 Novolog Vial Sliding Scale - SQ 6 units ACHS [facility] Administration Protocol Insulin Detemir 10 units 03/23/20 07:30 03/26/20 10:58 Levemir Vial SQ 10 units BID [facility] Administration Leflunomide 10 mg 03/23/20 10:00 03/26/20 10:55 Arava - PO 10 mg DAILY [facility] Administration Loratadine 10 mg 03/23/20 10:00 03/26/20 10:56 Claritin - PO 10 mg DAILY [facility] Administration Losartan Potassium 25 mg 03/23/20 10:00 03/26/20 10:56 Cozaar - PO 25 mg DAILY [facility] Administration Methylprednisolone 4 mg 03/23/20 10:00 03/26/20 10:57 Medrol - PO 4 mg DAILY [facility] Administration Metoprolol Tartrate 25 mg 03/23/20 10:00 03/26/20 10:56 Lopressor - PO 25 mg DAILY [facility] Administration Multivitamins/Minerals/Vitamin C 1 tab 03/23/20 10:00 03/26/20 10:56 Tab-A-Vit - PO 1 tab DAILY [facility] Administration Ondansetron HCl 4 mg 03/22/20 09:54 Zofran Injection IVPUSH Q6H PRN NAUSEA AND/OR VOMITING Ondansetron HCl 4 mg 03/22/20 11:24 Zofran Injection IVPUSH Q6H PRN NAUSEA AND/OR VOMITING Pantoprazole Sodium 40 mg 03/23/20 10:00 03/26/20 10:56 Protonix - PO 40 mg DAILY [facility] Administration ASSESSMENT AND PLAN: 64 M L foot osteomyelitis s/p L BKA POD#3 Uncontrolled T2DM w/ diabetic neuropathy Suspected hypercoaguable state HTN HLD Rheumatoid arthritis GERD JAMES H/o PE on Eliquis CAD Plan: Cont. IV Zosyn, will need aggressive wound care, PT/rehab for gait training, fit for prosthetic leg Taper Steroids and resume inhaled steroids/BD Cont. Eliquis Strict glycemic control Replace electrolytes aggressively ID following Podiatry following Surgery following
--- NOTE | 2020-03-26 17:19 | PN ---
Progress Note (short form) - Note Progress Note: Vascular Surgery Pt lc and examined. Dressing changed. Incision looks clean , dry and intact. Surgical site shows no sign of infection. Cont knee immobilzer. Torres Pearl DO Problem List - Problems (1) Gangrene of toe of left foot Code(s): I96 - GANGRENE, NOT ELSEWHERE CLASSIFIED
--- NOTE | 2020-03-26 18:25 | PN ---
Physical Exam: SUBJECTIVE: Patient seen and examined. Pt. denies any acute events overnight. Pt. is asking to have fan in room as Engineering has been unable to turn on central air and the windows are sealed shut. Pt. still apprehensive about wound healing. Pt. still with productive cough. OBJECTIVE: Vital Signs Period Temp Pulse Resp BP Sys/Dawson Pulse Ox Last 24 Hr 98.1 F-98.9 F 88-96 20-22 118-141/65-77 94-98 GENERAL: The patient is awake, alert, and fully oriented, in no acute distress. HEAD: Normal with no signs of trauma. EYES: Sclera anicteric, conjunctiva clear. ENT: Ears normal, nares patent, oropharynx clear without exudates, moist mucous membranes. LUNGS: diffuse crackles bilaterally, no accessory muscle use. HEART: Regular rate and rhythm, S1, S2 without murmur, rub or gallop. ABDOMEN: Soft, nontender, nondistended, normoactive bowel sounds EXTREMITIES: 2+ R. dorsal pedal pulse, warm, no calf tenderness, well-perfused, no edema. LLE bandaged by wound care--> warm nontender in immobilizer NEUROLOGICAL: Normal speech, gait not observed. PSYCH: Normal mood, normal affect. SKIN: Warm, dry, normal turgor Laboratory Results - last 24 hr 03/25/20 03/26/20 03/26/20 21:49 06:15 06:30 WBC 18.9 H RBC 3.34 L Hgb 9.3 L Hct 28.6 L MCV 85.6 MCH 27.8 MCHC 32.5 RDW 14.3 Plt Count 711 H MPV 7.5 Absolute Neuts (auto) 14.8 H Neutrophils % 78.2 Neutrophils % (Manual) 80.8 Band Neutrophils % 1.0 Lymphocytes % 12.3 Lymphocytes % (Manual) 7.1 L D Monocytes % 5.7 Monocytes % (Manual) 3 L D Eosinophils % 3.0 Eosinophils % (Manual) 4.1 D Basophils % 0.8 Basophils % (Manual) 0.0 Myelocytes % (Man) 3 H Promyelocytes % (Man) 0 Blast Cells % (Manual) 0 Nucleated RBC % 0 Metamyelocytes 1 D Hypochromia 0 Platelet Estimate Increased Polychromasia 0 Poikilocytosis 0 Anisocytosis 1+ Microcytosis 1+ Macrocytosis 0 Sodium Potassium Chloride Carbon Dioxide Anion Gap BUN Creatinine Est GFR (CKD-EPI)AfAm Est GFR (CKD-EPI)NonAf POC Glucometer 243 141 Random Glucose Calcium Phosphorus Magnesium Total Bilirubin AST ALT Alkaline Phosphatase Total Protein Albumin 03/26/20 03/26/20 03/26/20 06:30 12:45 16:38 WBC RBC Hgb Hct MCV MCH MCHC RDW Plt Count MPV Absolute Neuts (auto) Neutrophils % Neutrophils % (Manual) Band Neutrophils % Lymphocytes % Lymphocytes % (Manual) Monocytes % Monocytes % (Manual) Eosinophils % Eosinophils % (Manual) Basophils % Basophils % (Manual) Myelocytes % (Man) Promyelocytes % (Man) Blast Cells % (Manual) Nucleated RBC % Metamyelocytes Hypochromia Platelet Estimate Polychromasia Poikilocytosis Anisocytosis Microcytosis Macrocytosis Sodium 135 L Potassium 4.1 Chloride 103 Carbon Dioxide 23 Anion Gap 8 BUN 10.5 Creatinine 0.6 Est GFR (CKD-EPI)AfAm 124.89 Est GFR (CKD-EPI)NonAf 107.76 POC Glucometer 263 284 Random Glucose 144 H Calcium 8.7 Phosphorus 2.7 Magnesium 2.3 Total Bilirubin 0.9 AST 27 ALT 29 Alkaline Phosphatase 147 H Total Protein 6.2 L Albumin 2.0 L Active Medications Generic Name Dose Route Start Last Admin Trade Name Freq PRN Reason Stop Dose Admin Acetaminophen 325 mg 03/22/20 11:24 03/26/20 08:42 Tylenol - PO 325 mg Q4H PRN Administration FEVER Albuterol Sulfate 2 puff 03/22/20 11:24 Ventolin Hfa Inhaler - IH Q4H PRN SHORTNESS OF BREATH Albuterol/Ipratropium 1 amp 03/22/20 11:24 Duoneb - NEB Q4H PRN SHORTNESS OF BREATH Amino Acids 30 ml 03/22/20 17:30 03/26/20 18:12 Prosource No Carb Liquid Pkt PO 30 ml BID@0800,1730 ZAIN Administration Apixaban 5 mg 03/23/20 22:00 03/26/20 10:55 Eliquis - PO 5 mg BID ZAIN Administration Atorvastatin Calcium 20 mg 03/22/20 22:00 03/25/20 21:52 Lipitor - PO 20 mg HS ZAIN Administration Budesonide/Formoterol Fumarate 2 puff 03/22/20 22:00 03/26/20 11:05 Symbicort 160/4.5mcg - IH 2 puff BID ZAIN Administration Calcium Carbonate 500 mg 03/23/20 10:00 03/26/20 10:56 Os-Scott 500mg - PO 500 mg DAILY ZAIN Administration Docusate Sodium 100 mg 03/22/20 14:00 03/26/20 13:49 Colace - PO 100 mg TID ZAIN Administration Fentanyl 50 mcg 03/22/20 09:54 Sublimaze Injection - IVPUSH [id number] PRN PAIN-PACU ORDER X 4 DOSES ONLY Ferrous Sulfate 325 mg 03/22/20 17:30 03/26/20 18:12 Feosol - PO 325 mg BIDWM ZAIN Administration Folic Acid 1 mg 03/23/20 10:00 03/26/20 10:57 Folic Acid - PO 1 mg DAILY ZAIN Administration Piperacillin Sod/Tazobactam 50 mls @ 100 mls/hr 03/22/20 18:00 03/26/20 18:12 Sod 3.375 gm/ Dextrose IVPB 100 mls/hr Q8H-IV ZAIN Administration Protocol Insulin Aspart 1 vial 03/22/20 16:30 03/26/20 18:15 Novolog Vial Sliding Scale - SQ 6 units ACHS ZAIN Administration Protocol Insulin Detemir 10 units 03/23/20 07:30 03/26/20 10:58 Levemir Vial SQ 10 units BID ZAIN Administration Leflunomide 10 mg 03/23/20 10:00 03/26/20 10:55 Arava - PO 10 mg DAILY ZAIN Administration Loratadine 10 mg 03/23/20 10:00 03/26/20 10:56 Claritin - PO 10 mg DAILY ZAIN Administration Losartan Potassium 25 mg 03/23/20 10:00 03/26/20 10:56 Cozaar - PO 25 mg DAILY ZAIN Administration Methylprednisolone 4 mg 03/23/20 10:00 03/26/20 10:57 Medrol - PO 4 mg DAILY ZAIN Administration Metoprolol Tartrate 25 mg 03/23/20 10:00 03/26/20 10:56 Lopressor - PO 25 mg DAILY ZAIN Administration Multivitamins/Minerals/Vitamin C 1 tab 03/23/20 10:00 03/26/20 10:56 Tab-A-Vit - PO 1 tab DAILY ZAIN Administration Ondansetron HCl 4 mg 03/22/20 09:54 Zofran Injection IVPUSH Q6H PRN NAUSEA AND/OR VOMITING Ondansetron HCl 4 mg 03/22/20 11:24 Zofran Injection IVPUSH Q6H PRN NAUSEA AND/OR VOMITING Pantoprazole Sodium 40 mg 03/23/20 10:00 03/26/20 10:56 Protonix - PO 40 mg DAILY ZAIN Administration ASSESSMENT/PLAN: Pt. is a 64 y.o. M w/ PMHx. of HTN, DM, PVD, RA, GERD, Iron Deficiency Anemia and Hx. of PE presented with L. foot gangrene. Pt. is s/p L. TMA. #L. foot TMA and BKA with Leukocytosis s/p Left TMA 03/15 and Left BKA 03/22 Consults to wound care, Podiatry and ID appreciated continue IV Zosyn (Day 9) Clean margins as per surgical pathology report. The infected portion had OM, abscess formation, and necrosis( including the stump s/p TMA prior to BKA). Pain control Blood and Urine cultures have been negative here Pt. still with increasing WBC count. Low threshold to restart infectious workup. CXR today with no acute pathology. F/u AM CXR, will consider Chest CT. D/w Dr. Pearl that wound site yesterday looked clean and again today c/w immobilizer f/u ESR and CRP #HTN #DM #Hx. of multiple PE #ILD #PVD #GERD #RA #JAMES c/w home medications Levemir BID consult to Heme/Onc appreciated for history of multiple PE consult to Pulmonology appreciated for dyspnea, congested sounding cough in the setting of ILD--f/u CXR in AM #FEN LR @ 75 monitor electrolytes and replete as needed Diabetic/Sodium diet #DVT Ppx. c/w Eliquis 5mg BID Visit type - Emergency Visit Emergency Visit: Yes ED Registration Date: 03/15/20 Care time: The patient presented to the Emergency Department on the above date and was hospitalized for further evaluation of their emergent condition. - New Patient This patient is new to me today: No - Critical Care Critical Care patient: No - Discharge Referral Referred to [facility] Med [facility] No ATTENDING PHYSICIAN STATEMENT I saw and evaluated the patient. I reviewed the resident's note and discussed the case with the resident. I agree with the resident's findings and plan as documented. SUBJECTIVE: OBJECTIVE: ASSESSMENT AND PLAN:
[2020-03-26] MEDS: ATORVASTATIN CA 20 MG TABLET (FP) PO SCH (21:11)
[2020-03-26] MEDS: morphine SULFATE 4 MG/ML VIAL IVPUSH PRN (21:29)
[2020-03-27] MEDS ORDERED: DEXTROSE 5%-WATER - 50 ML IVPB ONE ×3 (00:51→17:12)
[2020-03-27] MEDS ORDERED: PIPERACILLIN/TAZOBACTAM 3.375 GM VIAL IVPB ONE ×3 (00:51→17:11)
[2020-03-27] MEDS: PIPERACILLIN/TAZOB 3.375 GM 3.375 GM in DEXTROSE 5%-WATER - 50 ML IVPB SCH ×3 (01:10→17:29)
[2020-03-27] MEDS: morphine SULFATE 4 MG/ML VIAL IVPUSH PRN ×3 (04:13→18:25)
[2020-03-27] MEDS: DOCUSATE SODIUM 100 MG CAPSULE (FP) PO SCH ×3 (06:09→21:45)
[2020-03-27] MEDS: INSULIN SLIDING SCALE (NOVOLOG) 1 VIAL SQ SCH ×4 (06:10→21:46)
--- NOTE | 2020-03-27 07:30 | PN ---
Progress Note, Physician History of Present Illness: PULMONARY ALERT,COMFORTABLE OOB-CHAIR,-SOB AT REST - Current Medication List Current Medications: Active Medications Acetaminophen (Tylenol -) 325 mg PO Q4H PRN PRN Reason: FEVER Last Admin: 03/26/20 08:42 Dose: 325 mg Documented by: Albuterol Sulfate (Ventolin Hfa Inhaler -) 2 puff IH Q4H PRN PRN Reason: SHORTNESS OF BREATH Albuterol/Ipratropium (Duoneb -) 1 amp NEB Q4H PRN PRN Reason: SHORTNESS OF BREATH Amino Acids (Prosource No Carb Liquid Pkt) 30 ml PO BID@0800,1730 [facility] Last Admin: 03/26/20 18:12 Dose: 30 ml Documented by: Apixaban (Eliquis -) 5 mg PO BID [facility] Last Admin: 03/26/20 21:11 Dose: 5 mg Documented by: Atorvastatin Calcium (Lipitor -) 20 mg PO HS [facility] Last Admin: 03/26/20 21:11 Dose: 20 mg Documented by: Budesonide/Formoterol Fumarate (Symbicort 160/4.5mcg -) 2 puff IH BID [facility] Last Admin: 03/26/20 21:23 Dose: 2 puff Documented by: Calcium Carbonate (Os-Scott 500mg -) 500 mg PO DAILY [facility] Last Admin: 03/26/20 10:56 Dose: 500 mg Documented by: Docusate Sodium (Colace -) 100 mg PO TID [facility] Last Admin: 03/27/20 06:09 Dose: 100 mg Documented by: Fentanyl (Sublimaze Injection -) 50 mcg IVPUSH [id number] PRN PRN Reason: PAIN-PACU ORDER X 4 DOSES ONLY Ferrous Sulfate (Feosol -) 325 mg PO BIDWM [facility] Last Admin: 03/26/20 18:12 Dose: 325 mg Documented by: Folic Acid (Folic Acid -) 1 mg PO DAILY [facility] Last Admin: 03/26/20 10:57 Dose: 1 mg Documented by: Piperacillin Sod/Tazobactam (Sod 3.375 gm/ Dextrose) 50 mls @ 100 mls/hr IVPB Q8H-IV [facility]; Protocol Last Admin: 03/27/20 01:10 Dose: 100 mls/hr Documented by: Insulin Aspart (Novolog Vial Sliding Scale -) 1 vial SQ ACHS [facility]; Protocol Last Admin: 03/27/20 06:10 Dose: 2 units Documented by: Insulin Detemir (Levemir Vial) 10 units SQ BID [facility] Last Admin: 03/26/20 21:13 Dose: 10 units Documented by: Leflunomide (Arava -) 10 mg PO DAILY [facility] Last Admin: 03/26/20 10:55 Dose: 10 mg Documented by: Loratadine (Claritin -) 10 mg PO DAILY [facility] Last Admin: 03/26/20 10:56 Dose: 10 mg Documented by: Losartan Potassium (Cozaar -) 25 mg PO DAILY [facility] Last Admin: 03/26/20 10:56 Dose: 25 mg Documented by: Methylprednisolone (Medrol -) 4 mg PO DAILY [facility] Last Admin: 03/26/20 10:57 Dose: 4 mg Documented by: Metoprolol Tartrate (Lopressor -) 25 mg PO DAILY [facility] Last Admin: 03/26/20 10:56 Dose: 25 mg Documented by: Morphine Sulfate (Morphine Sulfate) 4 mg IVPUSH Q6H PRN PRN Reason: PAIN LEVEL 4-10 Last Admin: 03/27/20 04:13 Dose: 4 mg Documented by: Multivitamins/Minerals/Vitamin C (Tab-A-Vit -) 1 tab PO DAILY [facility] Last Admin: 03/26/20 10:56 Dose: 1 tab Documented by: Ondansetron HCl (Zofran Injection) 4 mg IVPUSH Q6H PRN PRN Reason: NAUSEA AND/OR VOMITING Ondansetron HCl (Zofran Injection) 4 mg IVPUSH Q6H PRN PRN Reason: NAUSEA AND/OR VOMITING Pantoprazole Sodium (Protonix -) 40 mg PO DAILY [facility] Last Admin: 03/26/20 10:56 Dose: 40 mg Documented by: - Objective Vital Signs: Vital Signs Temperature 98.8 F 03/27/20 05:26 Pulse Rate 92 H 03/27/20 05:26 Respiratory Rate 18 03/27/20 05:26 Blood Pressure 123/69 03/27/20 05:26 O2 Sat by Pulse Oximetry (%) 100 03/27/20 05:26 Constitutional: Yes: Calm, Thin Eyes: Yes: WNL HENT: Yes: WNL Neck: Yes: WNL Cardiovascular: Yes: Regular Rate and Rhythm, S1, S2 Respiratory: Yes: Rales (JANY CRACKLES) Gastrointestinal: Yes: Normal Bowel Sounds, Soft Extremities: Yes: Amputation, Other (LEFT BKA) Edema: No Labs: CBC, BMP 03/26/20 06:30 03/26/20 06:30 Problem List - Problems (1) S/P transmetatarsal amputation of foot Code(s): Z89.439 - ACQUIRED ABSENCE OF UNSPECIFIED FOOT (2) Diabetic foot ulcer Code(s): E11.621 - TYPE 2 DIABETES MELLITUS WITH FOOT ULCER; L97.509 - NON- PRESSURE CHRONIC ULCER OTH PRT UNSP FOOT W UNSP SEVERITY (3) Gangrene of toe of left foot Code(s): I96 - GANGRENE, NOT ELSEWHERE CLASSIFIED (4) ILD (interstitial lung disease) Code(s): J84.9 - INTERSTITIAL PULMONARY DISEASE, UNSPECIFIED (5) PVD (peripheral vascular disease) Code(s): I73.9 - PERIPHERAL VASCULAR DISEASE, UNSPECIFIED (6) Painful amputation stump Code(s): T87.89 - OTHER COMPLICATIONS OF AMPUTATION STUMP; M79.609 - PAIN IN UNSPECIFIED LIMB (7) Pneumonia Code(s): J18.9 - PNEUMONIA, UNSPECIFIED ORGANISM Qualifiers: Laterality: left Lung location: lower lobe of lung (8) Shortness of breath Code(s): R06.02 - SHORTNESS OF BREATH (9) Hypertension Code(s): I10 - ESSENTIAL (PRIMARY) HYPERTENSION (10) Recurrent pulmonary embolism Code(s): I26.99 - OTHER PULMONARY EMBOLISM WITHOUT ACUTE COR PULMONALE (11) Type 2 diabetes mellitus Code(s): E11.9 - TYPE 2 DIABETES MELLITUS WITHOUT COMPLICATIONS Assessment/Plan IMP DYSPNEA IMPROVED ILD/BRONCHIECTASIS H/O RECURRENT PE 2014,2017 H/O OPEN HEART SURGERY SECONDARY TP PE ? THROMBECTOMY RLL LUNG NODULE ?LLL INFILTRATE HTN PVD DM HLD CHRONIC OSTEOMYELITIS S/P LEFT BKA ANEMIA PLAN SUPPLEMENTAL O2 INHALED BRONCHODILATORS ABX PER ID WOUND CARE MONITOR LYTES,H+H F/U CHEST X-RAYS DR PLASCENCIA Problem List - Problems (1) S/P transmetatarsal amputation of foot Code(s): Z89.439 - ACQUIRED ABSENCE OF UNSPECIFIED FOOT (2) Diabetic foot ulcer Code(s): E11.621 - TYPE 2 DIABETES MELLITUS WITH FOOT ULCER; L97.509 - NON- PRESSURE CHRONIC ULCER OTH PRT UNSP FOOT W UNSP SEVERITY (3) Gangrene of toe of left foot Code(s): I96 - GANGRENE, NOT ELSEWHERE CLASSIFIED (4) ILD (interstitial lung disease) Code(s): J84.9 - INTERSTITIAL PULMONARY DISEASE, UNSPECIFIED (5) PVD (peripheral vascular disease) Code(s): I73.9 - PERIPHERAL VASCULAR DISEASE, UNSPECIFIED (6) Painful amputation stump Code(s): T87.89 - OTHER COMPLICATIONS OF AMPUTATION STUMP; M79.609 - PAIN IN UNSPECIFIED LIMB (7) Pneumonia Code(s): J18.9 - PNEUMONIA, UNSPECIFIED ORGANISM Qualifiers: Laterality: left Lung location: lower lobe of lung (8) Shortness of breath Code(s): R06.02 - SHORTNESS OF BREATH (9) Hypertension Code(s): I10 - ESSENTIAL (PRIMARY) HYPERTENSION (10) Recurrent pulmonary embolism Code(s): I26.99 - OTHER PULMONARY EMBOLISM WITHOUT ACUTE COR PULMONALE (11) Type 2 diabetes mellitus Code(s): E11.9 - TYPE 2 DIABETES MELLITUS WITHOUT COMPLICATIONS
[2020-03-27 08:26] LABS: HEMATOCRIT 28.5 % (35.4-49); HEMOGLOBIN 9.2 GM/dL (11.7-16.9); LYMPH % 14.3 % (8-40); MCH 27.8 pg (25.7-33.7); MCHC 32.3 g/dl (32.0-35.9); MEAN PLT VOLUME 7.5 fl (7.5-11.1); MONO % 7.3 % (3.8-10.2); NEUT % 73.4 % (42.8-82.8); PLATELET COUNT 765 K/MM3 (134-434); RBC 3.32 M/mm3 (4.00-5.60); RDW 14.8 % (11.9-15.9); WHITE BLOOD COUNT 16.1 K/mm3 (4.0-10.0)
[2020-03-27 08:54] LABS: BILIRUBIN,TOTAL 0.9 mg/dL (0.2-1); BLOOD UREA NITROGEN 8.6 mg/dL (7-18); CALCIUM 8.3 mg/dL (8.5-10.1); CREATININE 0.7 mg/dL (0.55-1.3); MAGNESIUM 2.2 mg/dL (1.8-2.4); POTASSIUM 4.3 mmol/L (3.5-5.1); TOT PROT 6.3 g/dl (6.4-8.2)
[2020-03-27] MEDS ORDERED: PT OWN MED DRAWER 7, Y5N ONE (09:30)
[2020-03-27] MEDS: FERROUS SO4 325 MG TABLET (FP) PO SCH ×2 (09:35→17:21)
[2020-03-27] MEDS: AMINO ACIDS/PROTEIN HYDROLYS 30 ML LIQUID.PKT PO SCH ×2 (09:35→17:21)
[2020-03-27] MEDS: LEFLUNOMIDE 10 MG TABLET PO SCH (09:36)
[2020-03-27] MEDS: CALCIUM (OYSTER SHELL) 500 MG TABLET (FP) PO SCH (09:36)
[2020-03-27] MEDS: LOSARTAN POTASSIUM 25 MG TABLET PO SCH (09:36)
[2020-03-27] MEDS: LORATADINE 10 MG TABLET PO SCH (09:36)
[2020-03-27] MEDS: APIXABAN 5 MG TABLET PO SCH ×2 (09:37→21:45)
[2020-03-27] MEDS: METOPROLOL TARTRATE 25 MG TABLET (FP) PO SCH (09:37)
[2020-03-27] MEDS: FOLIC ACID 1 MG TABLET (FP) PO SCH (09:37)
[2020-03-27] MEDS: methylPREDNISolone 4 MG TABLET PO SCH (09:38)
[2020-03-27] MEDS: PANTOPRAZOLE 20 MG TABLET PO SCH (09:38)
[2020-03-27] MEDS: MULTIVITAMINS (DAILY MVI) TABLET (FP) PO SCH (09:38)
[2020-03-27] MEDS: BUDESONIDE/FORMETEROL FUMARATE 160/4.5 mcg INHALER IH SCH ×2 (09:39→22:45)
[2020-03-27] MEDS: INSULIN (LEVEMIR) 100 UNITS/ML UNITS SQ SCH ×2 (09:40→21:45)
[2020-03-27 10:21] LABS: ANISOCYTOSIS 0; MACROCYTOSIS 0; PLATELET ESTIMATE INCREASED
--- NOTE | 2020-03-27 12:17 | PN ---
Progress Note, Physician History of Present Illness: feeling better wbc trending down - Current Medication List Current Medications: Active Medications Acetaminophen (Tylenol -) 325 mg PO Q4H PRN PRN Reason: FEVER Last Admin: 03/26/20 08:42 Dose: 325 mg Documented by: Albuterol Sulfate (Ventolin Hfa Inhaler -) 2 puff IH Q4H PRN PRN Reason: SHORTNESS OF BREATH Amino Acids (Prosource No Carb Liquid Pkt) 30 ml PO BID@0800,1730 [facility] Last Admin: 03/27/20 09:35 Dose: 30 ml Documented by: Apixaban (Eliquis -) 5 mg PO BID [facility] Last Admin: 03/27/20 09:37 Dose: 5 mg Documented by: Atorvastatin Calcium (Lipitor -) 20 mg PO HS [facility] Last Admin: 03/26/20 21:11 Dose: 20 mg Documented by: Budesonide/Formoterol Fumarate (Symbicort 160/4.5mcg -) 2 puff IH BID [facility] Last Admin: 03/27/20 09:39 Dose: 2 puff Documented by: Calcium Carbonate (Os-Scott 500mg -) 500 mg PO DAILY [facility] Last Admin: 03/27/20 09:36 Dose: 500 mg Documented by: Docusate Sodium (Colace -) 100 mg PO TID [facility] Last Admin: 03/27/20 06:09 Dose: 100 mg Documented by: Fentanyl (Sublimaze Injection -) 50 mcg IVPUSH [id number] PRN PRN Reason: PAIN-PACU ORDER X 4 DOSES ONLY Ferrous Sulfate (Feosol -) 325 mg PO BIDWM [facility] Last Admin: 03/27/20 09:35 Dose: 325 mg Documented by: Folic Acid (Folic Acid -) 1 mg PO DAILY [facility] Last Admin: 03/27/20 09:37 Dose: 1 mg Documented by: Piperacillin Sod/Tazobactam (Sod 3.375 gm/ Dextrose) 50 mls @ 100 mls/hr IVPB Q8H-IV [facility]; Protocol Last Admin: 03/27/20 09:39 Dose: 100 mls/hr Documented by: Insulin Aspart (Novolog Vial Sliding Scale -) 1 vial SQ ACHS [facility]; Protocol Last Admin: 03/27/20 12:11 Dose: 8 units Documented by: Insulin Detemir (Levemir Vial) 10 units SQ BID [facility] Last Admin: 03/27/20 09:40 Dose: 10 units Documented by: Leflunomide (Arava -) 10 mg PO DAILY [facility] Last Admin: 03/27/20 09:36 Dose: 10 mg Documented by: Loratadine (Claritin -) 10 mg PO DAILY [facility] Last Admin: 03/27/20 09:36 Dose: 10 mg Documented by: Losartan Potassium (Cozaar -) 25 mg PO DAILY [facility] Last Admin: 03/27/20 09:36 Dose: 25 mg Documented by: Methylprednisolone (Medrol -) 4 mg PO DAILY [facility] Last Admin: 03/27/20 09:38 Dose: 4 mg Documented by: Metoprolol Tartrate (Lopressor -) 25 mg PO DAILY [facility] Last Admin: 03/27/20 09:37 Dose: 25 mg Documented by: Morphine Sulfate (Morphine Sulfate) 4 mg IVPUSH Q6H PRN PRN Reason: PAIN LEVEL 4-10 Last Admin: 03/27/20 11:01 Dose: 4 mg Documented by: Multivitamins/Minerals/Vitamin C (Tab-A-Vit -) 1 tab PO DAILY [facility] Last Admin: 03/27/20 09:38 Dose: 1 tab Documented by: Ondansetron HCl (Zofran Injection) 4 mg IVPUSH Q6H PRN PRN Reason: NAUSEA AND/OR VOMITING Ondansetron HCl (Zofran Injection) 4 mg IVPUSH Q6H PRN PRN Reason: NAUSEA AND/OR VOMITING Pantoprazole Sodium (Protonix -) 40 mg PO DAILY [facility] Last Admin: 03/27/20 09:38 Dose: 40 mg Documented by: - Objective Vital Signs: Vital Signs Temperature 98.8 F 03/27/20 05:26 Pulse Rate 92 H 03/27/20 05:26 Respiratory Rate 18 03/27/20 05:26 Blood Pressure 123/69 03/27/20 05:26 O2 Sat by Pulse Oximetry (%) 100 03/27/20 05:26 Constitutional: Yes: Calm, Mild Distress Cardiovascular: Yes: S1, S2 Respiratory: Yes: Regular, CTA Bilaterally Gastrointestinal: Yes: Normal Bowel Sounds Musculoskeletal: Yes: WNL Extremities: Yes: Other Neurological: Yes: Alert, Oriented Psychiatric: Yes: Alert, Oriented Labs: CBC, BMP 03/27/20 06:55 03/27/20 06:55 Assessment/Plan 64 y.o. M w/ PMHx. of HTN, DM, PVD, RA, GERD, Iron Deficiency Anemia and Hx. of PE presented with L. foot gangrene. Pt. is s/p L. TMA L. foot TMA htn pna dm gerd h/o of pe plan continue abx wound care monitor wbc rest as per the team
--- NOTE | 2020-03-27 13:21 | PN ---
Progress Note, Physician History of Present Illness: 64-year-old male with past medical history of hypertension hyperlipidemia rheumatoid arthritis GERD JAMES also PE coronary artery disease diabetes with neuropathy admitted for left foot osteomyelitis status post below-knee amputation. PMH Asthma Bronchiectasis Type 2 Diabetes 2000 Esophageal Reflux Hypertension Pulmonary Embolism 2014. treated for 1 year Recurrent pulmonary emboli s/p embolectomy Feb 2018 Rheumatoid Arthritis Spondylosis Hyperlipidemia - Current Medication List Current Medications: Active Medications Acetaminophen (Tylenol -) 325 mg PO Q4H PRN PRN Reason: FEVER Last Admin: 03/26/20 08:42 Dose: 325 mg Documented by: Albuterol Sulfate (Ventolin Hfa Inhaler -) 2 puff IH Q4H PRN PRN Reason: SHORTNESS OF BREATH Amino Acids (Prosource No Carb Liquid Pkt) 30 ml PO BID@0800,1730 [facility] Last Admin: 03/27/20 09:35 Dose: 30 ml Documented by: Apixaban (Eliquis -) 5 mg PO BID [facility] Last Admin: 03/27/20 09:37 Dose: 5 mg Documented by: Atorvastatin Calcium (Lipitor -) 20 mg PO HS [facility] Last Admin: 03/26/20 21:11 Dose: 20 mg Documented by: Budesonide/Formoterol Fumarate (Symbicort 160/4.5mcg -) 2 puff IH BID [facility] Last Admin: 03/27/20 09:39 Dose: 2 puff Documented by: Calcium Carbonate (Os-Scott 500mg -) 500 mg PO DAILY [facility] Last Admin: 03/27/20 09:36 Dose: 500 mg Documented by: Docusate Sodium (Colace -) 100 mg PO TID [facility] Last Admin: 03/27/20 06:09 Dose: 100 mg Documented by: Fentanyl (Sublimaze Injection -) 50 mcg IVPUSH [id number] PRN PRN Reason: PAIN-PACU ORDER X 4 DOSES ONLY Ferrous Sulfate (Feosol -) 325 mg PO BIDWM [facility] Last Admin: 03/27/20 09:35 Dose: 325 mg Documented by: Folic Acid (Folic Acid -) 1 mg PO DAILY [facility] Last Admin: 03/27/20 09:37 Dose: 1 mg Documented by: Piperacillin Sod/Tazobactam (Sod 3.375 gm/ Dextrose) 50 mls @ 100 mls/hr IVPB Q8H-IV [facility]; Protocol Last Admin: 03/27/20 09:39 Dose: 100 mls/hr Documented by: Insulin Aspart (Novolog Vial Sliding Scale -) 1 vial SQ ACHS [facility]; Protocol Last Admin: 03/27/20 12:11 Dose: 8 units Documented by: Insulin Detemir (Levemir Vial) 10 units SQ BID [facility] Last Admin: 03/27/20 09:40 Dose: 10 units Documented by: Leflunomide (Arava -) 10 mg PO DAILY [facility] Last Admin: 03/27/20 09:36 Dose: 10 mg Documented by: Loratadine (Claritin -) 10 mg PO DAILY [facility] Last Admin: 03/27/20 09:36 Dose: 10 mg Documented by: Losartan Potassium (Cozaar -) 25 mg PO DAILY [facility] Last Admin: 03/27/20 09:36 Dose: 25 mg Documented by: Methylprednisolone (Medrol -) 4 mg PO DAILY [facility] Last Admin: 03/27/20 09:38 Dose: 4 mg Documented by: Metoprolol Tartrate (Lopressor -) 25 mg PO DAILY [facility] Last Admin: 03/27/20 09:37 Dose: 25 mg Documented by: Morphine Sulfate (Morphine Sulfate) 4 mg IVPUSH Q6H PRN PRN Reason: PAIN LEVEL 4-10 Last Admin: 03/27/20 11:01 Dose: 4 mg Documented by: Multivitamins/Minerals/Vitamin C (Tab-A-Vit -) 1 tab PO DAILY [facility] Last Admin: 03/27/20 09:38 Dose: 1 tab Documented by: Ondansetron HCl (Zofran Injection) 4 mg IVPUSH Q6H PRN PRN Reason: NAUSEA AND/OR VOMITING Ondansetron HCl (Zofran Injection) 4 mg IVPUSH Q6H PRN PRN Reason: NAUSEA AND/OR VOMITING Pantoprazole Sodium (Protonix -) 40 mg PO DAILY [facility] Last Admin: 03/27/20 09:38 Dose: 40 mg Documented by: - Objective Vital Signs: Vital Signs Temperature 98.8 F 03/27/20 05:26 Pulse Rate 92 H 03/27/20 05:26 Respiratory Rate 18 03/27/20 05:26 Blood Pressure 123/69 03/27/20 05:26 O2 Sat by Pulse Oximetry (%) 100 03/27/20 05:26 Eyes: Yes: WNL, Conjunctiva Clear, EOM Intact HENT: Yes: WNL, Atraumatic, Normocephalic Neck: Yes: WNL, Supple, Trachea Midline Cardiovascular: Yes: WNL, Regular Rate and Rhythm Respiratory: Yes: WNL, Regular, CTA Bilaterally Gastrointestinal: Yes: WNL, Normal Bowel Sounds Genitourinary: Yes: WNL Musculoskeletal: Yes: WNL Extremities: Yes: Amputation Edema: No Integumentary: Yes: WNL Neurological: Yes: WNL, Alert, Oriented ...Motor Strength: WNL Psychiatric: Yes: WNL Labs: CBC, BMP 03/27/20 06:55 03/27/20 06:55 Problem List - Problems (1) S/P transmetatarsal amputation of foot Code(s): Z89.439 - ACQUIRED ABSENCE OF UNSPECIFIED FOOT (2) Cellulitis of left foot Code(s): L03.116 - CELLULITIS OF LEFT LOWER LIMB (3) Diabetic foot ulcer Code(s): E11.621 - TYPE 2 DIABETES MELLITUS WITH FOOT ULCER; L97.509 - NON-PRE SSURE CHRONIC ULCER OTH PRT UNSP FOOT W UNSP SEVERITY (4) Gangrene of toe of left foot Code(s): I96 - GANGRENE, NOT ELSEWHERE CLASSIFIED (5) ILD (interstitial lung disease) Code(s): J84.9 - INTERSTITIAL PULMONARY DISEASE, UNSPECIFIED (6) PVD (peripheral vascular disease) Code(s): I73.9 - PERIPHERAL VASCULAR DISEASE, UNSPECIFIED (7) Painful amputation stump Code(s): T87.89 - OTHER COMPLICATIONS OF AMPUTATION STUMP; M79.609 - PAIN IN UNSPECIFIED LIMB (8) Pneumonia Code(s): J18.9 - PNEUMONIA, UNSPECIFIED ORGANISM Qualifiers: Laterality: left Lung location: lower lobe of lung (9) Sepsis due to cellulitis Code(s): L03.90 - CELLULITIS, UNSPECIFIED; A41.9 - SEPSIS, UNSPECIFIED ORGANISM (10) Shortness of breath Code(s): R06.02 - SHORTNESS OF BREATH (11) Status post amputation of left great toe Code(s): Z89.412 - ACQUIRED ABSENCE OF LEFT GREAT TOE (12) Toe pain Code(s): M79.676 - PAIN IN UNSPECIFIED TOE(S) (13) Hypercholesterolemia Code(s): E78.00 - PURE HYPERCHOLESTEROLEMIA, UNSPECIFIED (14) Hypertension Code(s): I10 - ESSENTIAL (PRIMARY) HYPERTENSION (15) Recurrent pulmonary embolism Code(s): I26.99 - OTHER PULMONARY EMBOLISM WITHOUT ACUTE COR PULMONALE (16) Rheumatoid arthritis Code(s): M06.9 - RHEUMATOID ARTHRITIS, UNSPECIFIED (17) Type 2 diabetes mellitus Code(s): E11.9 - TYPE 2 DIABETES MELLITUS WITHOUT COMPLICATIONS (18) Venous insufficiency Code(s): I87.2 - VENOUS INSUFFICIENCY (CHRONIC) (PERIPHERAL) Assessment/Plan 64-year-old male with past medical history of hypertension hyperlipidemia rheumatoid arthritis GERD JAMES also PE coronary artery disease diabetes with neuropathy admitted for left foot osteomyelitis status post below-knee amputation. Cardiac castro stable Cont AC
--- NOTE | 2020-03-27 14:37 | PN ---
Physical Exam: SUBJECTIVE: Patient seen and examined. No acute events overnight. Pain better controlled. OBJECTIVE: Vital Signs Period Temp Pulse Resp BP Sys/Dawson Pulse Ox Last 24 Hr 98.0 F-98.9 F 92-96 18-20 118-126/65-69 95-100 GENERAL: The patient is awake, alert, and fully oriented, in no acute distress. HEAD: Normal with no signs of trauma. EYES: Sclera anicteric, conjunctiva clear. ENT: Ears normal, nares patent, oropharynx clear without exudates, moist mucous membranes. LUNGS: diffuse crackles bilaterally, no accessory muscle use. HEART: Regular rate and rhythm, S1, S2 without murmur, rub or gallop. ABDOMEN: Soft, nontender, nondistended, normoactive bowel sounds EXTREMITIES: 2+ R. dorsal pedal pulse, warm, no calf tenderness, well-perfused, no edema. LLE bandaged by wound care--> warm nontender in immobilizer NEUROLOGICAL: Normal speech, gait not observed. PSYCH: Normal mood, normal affect. SKIN: Warm, dry, normal turgor Laboratory Results - last 24 hr 03/26/20 03/26/20 03/27/20 16:38 21:12 06:10 WBC RBC Hgb Hct MCV MCH MCHC RDW Plt Count MPV Absolute Neuts (auto) Neutrophils % Neutrophils % (Manual) Band Neutrophils % Lymphocytes % Lymphocytes % (Manual) Monocytes % Monocytes % (Manual) Eosinophils % Eosinophils % (Manual) Basophils % Basophils % (Manual) Myelocytes % (Man) Promyelocytes % (Man) Blast Cells % (Manual) Nucleated RBC % Metamyelocytes Hypochromia Platelet Estimate Polychromasia Poikilocytosis Anisocytosis Microcytosis Macrocytosis ESR Sodium Potassium Chloride Carbon Dioxide Anion Gap BUN Creatinine Est GFR (CKD-EPI)AfAm Est GFR (CKD-EPI)NonAf POC Glucometer 284 213 160 Random Glucose Calcium Magnesium Total Bilirubin AST ALT Alkaline Phosphatase C-Reactive Protein Total Protein Albumin 03/27/20 03/27/20 03/27/20 06:55 06:55 06:55 WBC 16.1 H RBC 3.32 L Hgb 9.2 L Hct 28.5 L MCV 86.0 MCH 27.8 MCHC 32.3 RDW 14.8 Plt Count 765 H MPV 7.5 Absolute Neuts (auto) 11.8 H Neutrophils % 73.4 Neutrophils % (Manual) 67.0 Band Neutrophils % 0.0 Lymphocytes % 14.3 Lymphocytes % (Manual) 14.0 D Monocytes % 7.3 Monocytes % (Manual) 10 D Eosinophils % 4.0 Eosinophils % (Manual) 4.0 Basophils % 1.0 Basophils % (Manual) 0.0 Myelocytes % (Man) 5 H D Promyelocytes % (Man) 0 Blast Cells % (Manual) 0 Nucleated RBC % 1 H Metamyelocytes 0 D Hypochromia 0 Platelet Estimate Increased Polychromasia 0 Poikilocytosis 0 Anisocytosis 0 Microcytosis 0 Macrocytosis 0 ESR 108 H Sodium 135 L Potassium 4.3 Chloride 105 Carbon Dioxide 22 Anion Gap 8 BUN 8.6 Creatinine 0.7 Est GFR (CKD-EPI)AfAm 117.22 Est GFR (CKD-EPI)NonAf 101.14 POC Glucometer Random Glucose 156 H Calcium 8.3 L Magnesium 2.2 Total Bilirubin 0.9 AST 23 ALT 27 Alkaline Phosphatase 131 H C-Reactive Protein 9.5 H Total Protein 6.3 L Albumin 2.0 L 03/27/20 12:10 WBC RBC Hgb Hct MCV MCH MCHC RDW Plt Count MPV Absolute Neuts (auto) Neutrophils % Neutrophils % (Manual) Band Neutrophils % Lymphocytes % Lymphocytes % (Manual) Monocytes % Monocytes % (Manual) Eosinophils % Eosinophils % (Manual) Basophils % Basophils % (Manual) Myelocytes % (Man) Promyelocytes % (Man) Blast Cells % (Manual) Nucleated RBC % Metamyelocytes Hypochromia Platelet Estimate Polychromasia Poikilocytosis Anisocytosis Microcytosis Macrocytosis ESR Sodium Potassium Chloride Carbon Dioxide Anion Gap BUN Creatinine Est GFR (CKD-EPI)AfAm Est GFR (CKD-EPI)NonAf POC Glucometer 306 Random Glucose Calcium Magnesium Total Bilirubin AST ALT Alkaline Phosphatase C-Reactive Protein Total Protein Albumin Active Medications Generic Name Dose Route Start Last Admin Trade Name Freq PRN Reason Stop Dose Admin Acetaminophen 325 mg 03/22/20 11:24 03/26/20 08:42 Tylenol - PO 325 mg Q4H PRN Administration FEVER Albuterol Sulfate 2 puff 03/22/20 11:24 Ventolin Hfa Inhaler - IH Q4H PRN SHORTNESS OF BREATH Amino Acids 30 ml 03/22/20 17:30 03/27/20 09:35 Prosource No Carb Liquid Pkt PO 30 ml BID@0800,1730 [facility] Administration Apixaban 5 mg 03/23/20 22:00 03/27/20 09:37 Eliquis - PO 5 mg BID [facility] Administration Atorvastatin Calcium 20 mg 03/22/20 22:00 03/26/20 21:11 Lipitor - PO 20 mg HS [facility] Administration Budesonide/Formoterol Fumarate 2 puff 03/22/20 22:00 03/27/20 09:39 Symbicort 160/4.5mcg - IH 2 puff BID [facility] Administration Calcium Carbonate 500 mg 03/23/20 10:00 03/27/20 09:36 Os-Scott 500mg - PO 500 mg DAILY [facility] Administration Docusate Sodium 100 mg 03/22/20 14:00 03/27/20 13:42 Colace - PO 100 mg TID [facility] Administration Fentanyl 50 mcg 03/22/20 09:54 Sublimaze Injection - IVPUSH [id number] PRN PAIN-PACU ORDER X 4 DOSES ONLY Ferrous Sulfate 325 mg 03/22/20 17:30 03/27/20 09:35 Feosol - PO 325 mg BIDWM [facility] Administration Folic Acid 1 mg 03/23/20 10:00 03/27/20 09:37 Folic Acid - PO 1 mg DAILY [facility] Administration Piperacillin Sod/Tazobactam 50 mls @ 100 mls/hr 03/22/20 18:00 03/27/20 09:39 Sod 3.375 gm/ Dextrose IVPB 100 mls/hr Q8H-IV [facility] Administration Protocol Insulin Aspart 1 vial 03/22/20 16:30 03/27/20 12:11 Novolog Vial Sliding Scale - SQ 8 units ACHS [facility] Administration Protocol Insulin Detemir 10 units 03/23/20 07:30 03/27/20 09:40 Levemir Vial SQ 10 units BID [facility] Administration Leflunomide 10 mg 03/23/20 10:00 03/27/20 09:36 Arava - PO 10 mg DAILY [facility] Administration Loratadine 10 mg 03/23/20 10:00 03/27/20 09:36 Claritin - PO 10 mg DAILY [facility] Administration Losartan Potassium 25 mg 03/23/20 10:00 03/27/20 09:36 Cozaar - PO 25 mg DAILY [facility] Administration Methylprednisolone 4 mg 03/23/20 10:00 03/27/20 09:38 Medrol - PO 4 mg DAILY [facility] Administration Metoprolol Tartrate 25 mg 03/23/20 10:00 03/27/20 09:37 Lopressor - PO 25 mg DAILY [facility] Administration Morphine Sulfate 4 mg 03/26/20 18:24 03/27/20 11:01 Morphine Sulfate IVPUSH 4 mg Q6H PRN Administration PAIN LEVEL 4-10 Multivitamins/Minerals/Vitamin C 1 tab 03/23/20 10:00 03/27/20 09:38 Tab-A-Vit - PO 1 tab DAILY [facility] Administration Ondansetron HCl 4 mg 03/22/20 09:54 Zofran Injection IVPUSH Q6H PRN NAUSEA AND/OR VOMITING Ondansetron HCl 4 mg 03/22/20 11:24 Zofran Injection IVPUSH Q6H PRN NAUSEA AND/OR VOMITING Pantoprazole Sodium 40 mg 03/23/20 10:00 03/27/20 09:38 Protonix - PO 40 mg DAILY [facility] Administration ASSESSMENT/PLAN: Pt. is a 64 y.o. M w/ PMHx. of HTN, DM, PVD, RA, GERD, Iron Deficiency Anemia and Hx. of PE presented with L. foot gangrene. Pt. is s/p L. TMA and L. BKA #L. foot TMA and BKA with Leukocytosis and Thrombocytosis s/p Left TMA 03/15 and Left BKA 03/22 Consults to wound care, Podiatry and ID appreciated continue IV Zosyn (Day 10) Clean margins as per surgical pathology report. The infected portion had OM, abscess formation, and necrosis( including the stump s/p TMA prior to BKA). Pain control Blood and Urine cultures have been negative here Pt. still with increasing WBC count. Low threshold to restart infectious workup. CXR today with no acute pathology over the last 2 days. D/w Dr. Pearl that wound site yesterday looked clean. c/w immobilizer ESR: 108 and CRP: 9.5 WBCs beginning to trend down will continue to monitor. We are concerned that platelets have been rising over the last days suggesting these is a chronic infection c/w PT showing improvements daily #HTN #DM #Hx. of multiple PE #ILD #PVD #GERD #RA #Anemia 2/2 Iron deficiency and chronic disease c/w home medications Levemir BID consult to Heme/Onc appreciated for history of multiple PE consult to Pulmonology appreciated for dyspnea, congested sounding cough in the setting of ILD--> CXR clear f/u Iron studies #FEN LR @ 75 monitor electrolytes and replete as needed Diabetic/Sodium diet #DVT Ppx. c/w Eliquis 5mg BID #Dispo--> awaiting placement for rehab. f/u Rpt. Covid Swab Visit type - Emergency Visit Emergency Visit: Yes ED Registration Date: 03/15/20 Care time: The patient presented to the Emergency Department on the above date and was hospitalized for further evaluation of their emergent condition. - New Patient This patient is new to me today: No - Critical Care Critical Care patient: No - Discharge Referral Referred to [facility] No ATTENDING PHYSICIAN STATEMENT I saw and evaluated the patient. I reviewed the resident's note and discussed the case with the resident. I agree with the resident's findings and plan as documented. SUBJECTIVE: OBJECTIVE: ASSESSMENT AND PLAN:
--- NOTE | 2020-03-27 14:51 | PN ---
Teaching Attending Note Name of Resident: Antione Saleem ATTENDING PHYSICIAN STATEMENT I saw and evaluated the patient. I reviewed the resident's note and discussed the case with the resident. I agree with the resident's findings and plan as documented. SUBJECTIVE: Seen and examined at bedside. Patient states pain is controlled and denies evan rtness of breath, chest pain. OBJECTIVE Last Vital Signs Temp Pulse Resp BP Pulse Ox 98.8 F 92 H 18 123/69 100 03/27/20 05:03/27/20 05:03/27/20 05:03/27/20 05:03/27/20 05:26 PE: Per resident note Labs/Imaging: reviewed ASSESSMENT/PLAN 64-year-old male with past medical history of hypertension, diabetes, PVD, RA, GERD, iron deficiency anemia presents with left foot gangrene. 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 #Left foot TMA and BKA Wound care, podiatry, and ID on board: Appreciate recommendations Continue IV Zosyn White count increasing. Currently afebrile Send ESR/CRP #Leukocytosis/thrombocytosis WBC now trending down. Plts still increasing Is on methylprednisolone chronically but dose has not changed during ho spitalization Will monitor overnight. If plts wbc higher may need additional imaging to find area of occult infection Chest x-ray unremarkable #Hypertension, diabetes, history of multiple PE, ILD, PVD, GERD, RA, JAMES Continue home medications
[2020-03-27] MEDS: ATORVASTATIN CA 20 MG TABLET (FP) PO SCH (21:45)
[2020-03-28] MEDS ORDERED: PIPERACILLIN/TAZOBACTAM 3.375 GM VIAL IVPB ONE ×3 (01:04→17:13)
[2020-03-28] MEDS ORDERED: DEXTROSE 5%-WATER - 50 ML IVPB ONE ×3 (01:04→17:13)
[2020-03-28] MEDS: PIPERACILLIN/TAZOB 3.375 GM 3.375 GM in DEXTROSE 5%-WATER - 50 ML IVPB SCH ×3 (01:28→17:34)
[2020-03-28] MEDS: DOCUSATE SODIUM 100 MG CAPSULE (FP) PO SCH ×3 (06:11→22:23)
[2020-03-28] MEDS: INSULIN SLIDING SCALE (NOVOLOG) 1 VIAL SQ SCH ×4 (06:14→22:24)
[2020-03-28] MEDS ORDERED: INSULIN (LEVEMIR) 100 UNITS/ML UNITS SQ ONE (08:03)
[2020-03-28] MEDS: FERROUS SO4 325 MG TABLET (FP) PO SCH ×2 (08:16→17:17)
[2020-03-28] MEDS: AMINO ACIDS/PROTEIN HYDROLYS 30 ML LIQUID.PKT PO SCH ×2 (08:16→17:17)
[2020-03-28 08:20] LABS: BASO % 0.9 % (0-2.0); EOS % 4.2 % (0-4.5); HEMATOCRIT 28.2 % (35.4-49); LYMPH % 13.5 % (8-40); MCH 27.4 pg (25.7-33.7); MEAN CELL VOLUME 85.7 fl (80-96); MEAN PLT VOLUME 7.5 fl (7.5-11.1); MONO % 8.9 % (3.8-10.2); NEUT % 72.5 % (42.8-82.8); PLATELET COUNT 779 K/MM3 (134-434); RDW 14.6 % (11.9-15.9); WHITE BLOOD COUNT 14.5 K/mm3 (4.0-10.0)
[2020-03-28 08:44] LABS: POTASSIUM 4.3 mmol/L (3.5-5.1)
[2020-03-28 08:52] LABS: BLOOD UREA NITROGEN 11.5 mg/dL (7-18); CREATININE 0.8 mg/dL (0.55-1.3)
[2020-03-28 08:53] LABS: CALCIUM 7.8 mg/dL (8.5-10.1)
[2020-03-28] MEDS ORDERED: PT OWN MED DRAWER 7, Y5N ONE (09:23)
[2020-03-28] MEDS: LEFLUNOMIDE 10 MG TABLET PO SCH (09:52)
[2020-03-28] MEDS: LORATADINE 10 MG TABLET PO SCH (09:52)
[2020-03-28] MEDS: APIXABAN 5 MG TABLET PO SCH ×2 (09:52→22:23)
[2020-03-28] MEDS: LOSARTAN POTASSIUM 25 MG TABLET PO SCH (09:52)
[2020-03-28] MEDS: METOPROLOL TARTRATE 25 MG TABLET (FP) PO SCH (09:53)
[2020-03-28] MEDS: FOLIC ACID 1 MG TABLET (FP) PO SCH (09:53)
[2020-03-28] MEDS: methylPREDNISolone 4 MG TABLET PO SCH (09:53)
[2020-03-28] MEDS: CALCIUM (OYSTER SHELL) 500 MG TABLET (FP) PO SCH (09:53)
[2020-03-28] MEDS: MULTIVITAMINS (DAILY MVI) TABLET (FP) PO SCH (09:54)
[2020-03-28] MEDS: BUDESONIDE/FORMETEROL FUMARATE 160/4.5 mcg INHALER IH SCH ×2 (09:54→22:59)
[2020-03-28] MEDS: PANTOPRAZOLE 20 MG TABLET PO SCH (09:54)
[2020-03-28 10:01] LABS: ANISOCYTOSIS 1+; MACROCYTOSIS 0; PLATELET ESTIMATE INCREASED
[2020-03-28] MEDS: morphine SULFATE 4 MG/ML VIAL IVPUSH PRN ×2 (10:48→22:28)
--- NOTE | 2020-03-28 11:09 | PN ---
Progress Note, Physician History of Present Illness: wbc trending down still a bit with coughing - Current Medication List Current Medications: Active Medications Acetaminophen (Tylenol -) 325 mg PO Q4H PRN PRN Reason: FEVER Last Admin: 03/26/20 08:42 Dose: 325 mg Documented by: Albuterol Sulfate (Ventolin Hfa Inhaler -) 2 puff IH Q4H PRN PRN Reason: SHORTNESS OF BREATH Amino Acids (Prosource No Carb Liquid Pkt) 30 ml PO BID@0800,1730 [facility] Last Admin: 03/28/20 08:16 Dose: 30 ml Documented by: Apixaban (Eliquis -) 5 mg PO BID [facility] Last Admin: 03/28/20 09:52 Dose: 5 mg Documented by: Atorvastatin Calcium (Lipitor -) 20 mg PO HS [facility] Last Admin: 03/27/20 21:45 Dose: 20 mg Documented by: Budesonide/Formoterol Fumarate (Symbicort 160/4.5mcg -) 2 puff IH BID [facility] Last Admin: 03/28/20 09:54 Dose: 2 puff Documented by: Calcium Carbonate (Os-Scott 500mg -) 500 mg PO DAILY [facility] Last Admin: 03/28/20 09:53 Dose: 500 mg Documented by: Docusate Sodium (Colace -) 100 mg PO TID [facility] Last Admin: 03/28/20 06:11 Dose: 100 mg Documented by: Fentanyl (Sublimaze Injection -) 50 mcg IVPUSH [id number] PRN PRN Reason: PAIN-PACU ORDER X 4 DOSES ONLY Ferrous Sulfate (Feosol -) 325 mg PO BIDWM [facility] Last Admin: 03/28/20 08:16 Dose: 325 mg Documented by: Folic Acid (Folic Acid -) 1 mg PO DAILY [facility] Last Admin: 03/28/20 09:53 Dose: 1 mg Documented by: Piperacillin Sod/Tazobactam (Sod 3.375 gm/ Dextrose) 50 mls @ 100 mls/hr IVPB Q8H-IV [facility]; Protocol Last Admin: 03/28/20 09:54 Dose: 100 mls/hr Documented by: Insulin Aspart (Novolog Vial Sliding Scale -) 1 vial SQ ACHS [facility]; Protocol Last Admin: 03/28/20 06:14 Dose: Not Given Documented by: Insulin Detemir (Levemir Vial) 10 units SQ BID@0700,2200 [facility] Leflunomide (Arava -) 10 mg PO DAILY [facility] Last Admin: 03/28/20 09:52 Dose: 10 mg Documented by: Loratadine (Claritin -) 10 mg PO DAILY [facility] Last Admin: 03/28/20 09:52 Dose: 10 mg Documented by: Losartan Potassium (Cozaar -) 25 mg PO DAILY [facility] Last Admin: 03/28/20 09:52 Dose: 25 mg Documented by: Methylprednisolone (Medrol -) 4 mg PO DAILY [facility] Last Admin: 03/28/20 09:53 Dose: 4 mg Documented by: Metoprolol Tartrate (Lopressor -) 25 mg PO DAILY [facility] Last Admin: 03/28/20 09:53 Dose: 25 mg Documented by: Morphine Sulfate (Morphine Sulfate) 4 mg IVPUSH Q6H PRN PRN Reason: PAIN LEVEL 4-10 Last Admin: 03/28/20 10:48 Dose: 4 mg Documented by: Multivitamins/Minerals/Vitamin C (Tab-A-Vit -) 1 tab PO DAILY [facility] Last Admin: 03/28/20 09:54 Dose: 1 tab Documented by: Ondansetron HCl (Zofran Injection) 4 mg IVPUSH Q6H PRN PRN Reason: NAUSEA AND/OR VOMITING Ondansetron HCl (Zofran Injection) 4 mg IVPUSH Q6H PRN PRN Reason: NAUSEA AND/OR VOMITING Pantoprazole Sodium (Protonix -) 40 mg PO DAILY [facility] Last Admin: 03/28/20 09:54 Dose: 40 mg Documented by: - Objective Vital Signs: Vital Signs Temperature 98.3 F 03/28/20 06:00 Pulse Rate 96 H 03/28/20 06:00 Respiratory Rate 20 03/28/20 06:00 Blood Pressure 116/55 L 03/28/20 06:00 O2 Sat by Pulse Oximetry (%) 96 03/28/20 06:00 Constitutional: Yes: No Distress, Calm Respiratory: Yes: Regular, CTA Bilaterally Gastrointestinal: Yes: Normal Bowel Sounds, Soft Musculoskeletal: Yes: Other Extremities: Yes: Other Neurological: Yes: Alert, Oriented Psychiatric: Yes: Alert, Oriented Labs: CBC, BMP 03/28/20 06:50 03/28/20 06:50 Assessment/Plan 64 y.o. M w/ PMHx. of HTN, DM, PVD, RA, GERD, Iron Deficiency Anemia and Hx. of PE presented with L. foot gangrene. Pt. is s/p L. TMA L. foot TMA htn pna dm gerd h/o of pe plan continue abx wound care monitor wbc rest as per the team
--- NOTE | 2020-03-28 13:20 | PN ---
Teaching Attending Note Name of Resident: Monique Tucker ATTENDING PHYSICIAN STATEMENT I saw and evaluated the patient. I reviewed the resident's note and discussed the case with the resident. I agree with the resident's findings and plan as documented. SUBJECTIVE: Seen and examined at bedside. Patient states pain is controlled and denies shortness of breath, chest pain. WBC improving OBJECTIVE Last Vital Signs Temp Pulse Resp BP Pulse Ox 98.5 F 88 20 136/71 97 03/28/20 08:15 03/28/20 08:15 03/28/20 08:15 03/28/20 08:15 03/28/20 08:15 PE: Per resident note Labs/Imaging: reviewed ASSESSMENT/PLAN 64-year-old male with past medical history of hypertension, diabetes, PVD, RA, GERD, iron deficiency anemia presents with left foot gangrene. 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 #Left foot TMA and BKA Wound care, podiatry, and ID on board: Appreciate recommendations Continue IV Zosyn White count improving Currently afebrile #Leukocytosis/thrombocytosis WBC now trending down. Plts still increasing Is on methylprednisolone chronically but dose has not changed during hosp italization Will monitor overnight. If plts wbc higher may need additional imaging to find area of occult infection Chest x-ray unremarkable #Hypertension, diabetes, history of multiple PE, ILD, PVD, GERD, RA, JAMES Continue home medications
--- NOTE | 2020-03-28 13:51 | PN ---
Progress Note (short form) - Note Progress Note: PULMONARY Denies shortness of breath. Still some cough. No fevers. Vital Signs Period Temp Pulse Resp BP Sys/Dawson Pulse Ox Last 24 Hr 98.3 F-98.5 F 88-96 20-20 102-136/55-71 96-98 Gen: NAD at rest Heart: RRR Lung: basilar rales, rhonchi Abd: soft, nontender Ext: no edema CBC, BMP 03/28/20 06:50 03/28/20 06:50 Active Medications Acetaminophen (Tylenol -) 325 mg PO Q4H PRN PRN Reason: FEVER Last Admin: 03/26/20 08:42 Dose: 325 mg Documented by: Albuterol Sulfate (Ventolin Hfa Inhaler -) 2 puff IH Q4H PRN PRN Reason: SHORTNESS OF BREATH Amino Acids (Prosource No Carb Liquid Pkt) 30 ml PO BID@0800,1730 [facility] Last Admin: 03/28/20 08:16 Dose: 30 ml Documented by: Apixaban (Eliquis -) 5 mg PO BID [facility] Last Admin: 03/28/20 09:52 Dose: 5 mg Documented by: Atorvastatin Calcium (Lipitor -) 20 mg PO HS [facility] Last Admin: 03/27/20 21:45 Dose: 20 mg Documented by: Budesonide/Formoterol Fumarate (Symbicort 160/4.5mcg -) 2 puff IH BID [facility] Last Admin: 03/28/20 09:54 Dose: 2 puff Documented by: Calcium Carbonate (Os-Scott 500mg -) 500 mg PO DAILY [facility] Last Admin: 03/28/20 09:53 Dose: 500 mg Documented by: Docusate Sodium (Colace -) 100 mg PO TID [facility] Last Admin: 03/28/20 13:30 Dose: 100 mg Documented by: Fentanyl (Sublimaze Injection -) 50 mcg IVPUSH [id number] PRN PRN Reason: PAIN-PACU ORDER X 4 DOSES ONLY Ferrous Sulfate (Feosol -) 325 mg PO BIDWM [facility] Last Admin: 03/28/20 08:16 Dose: 325 mg Documented by: Folic Acid (Folic Acid -) 1 mg PO DAILY [facility] Last Admin: 03/28/20 09:53 Dose: 1 mg Documented by: Piperacillin Sod/Tazobactam (Sod 3.375 gm/ Dextrose) 50 mls @ 100 mls/hr IVPB Q8H-IV [facility]; Protocol Last Admin: 03/28/20 09:54 Dose: 100 mls/hr Documented by: Insulin Aspart (Novolog Vial Sliding Scale -) 1 vial SQ ACHS [facility]; Protocol Last Admin: 03/28/20 11:43 Dose: 4 units Documented by: Insulin Detemir (Levemir Vial) 10 units SQ BID@0700,2200 [facility] Leflunomide (Arava -) 10 mg PO DAILY [facility] Last Admin: 03/28/20 09:52 Dose: 10 mg Documented by: Loratadine (Claritin -) 10 mg PO DAILY [facility] Last Admin: 03/28/20 09:52 Dose: 10 mg Documented by: Losartan Potassium (Cozaar -) 25 mg PO DAILY [facility] Last Admin: 03/28/20 09:52 Dose: 25 mg Documented by: Methylprednisolone (Medrol -) 4 mg PO DAILY [facility] Last Admin: 03/28/20 09:53 Dose: 4 mg Documented by: Metoprolol Tartrate (Lopressor -) 25 mg PO DAILY [facility] Last Admin: 03/28/20 09:53 Dose: 25 mg Documented by: Morphine Sulfate (Morphine Sulfate) 4 mg IVPUSH Q6H PRN PRN Reason: PAIN LEVEL 4-10 Last Admin: 03/28/20 10:48 Dose: 4 mg Documented by: Multivitamins/Minerals/Vitamin C (Tab-A-Vit -) 1 tab PO DAILY [facility] Last Admin: 03/28/20 09:54 Dose: 1 tab Documented by: Ondansetron HCl (Zofran Injection) 4 mg IVPUSH Q6H PRN PRN Reason: NAUSEA AND/OR VOMITING Ondansetron HCl (Zofran Injection) 4 mg IVPUSH Q6H PRN PRN Reason: NAUSEA AND/OR VOMITING Pantoprazole Sodium (Protonix -) 40 mg PO DAILY [facility] Last Admin: 03/28/20 09:54 Dose: 40 mg Documented by: A/P Pneumonia Interstitial Lung Disease Bronchiectasis h/o PE PAD HTN DM Hyperlipidemia s/p R BKA - continue antibiotics - inhaled bronchodilators - O2 to keep SpO2 >90% - continue anticoagulation - d/c planning in progress
[2020-03-28 14:10] VITALS: BMI 22.8
--- NOTE | 2020-03-28 14:12 | PN ---
Progress Note, Physician History of Present Illness: 64-year-old male with past medical history of hypertension hyperlipidemia rheumatoid arthritis GERD JAMES also PE coronary artery disease diabetes with neuropathy admitted for left foot osteomyelitis status post below-knee amputation. PMH Asthma Bronchiectasis Type 2 Diabetes 2000 Esophageal Reflux Hypertension Pulmonary Embolism 2014. treated for 1 year Recurrent pulmonary emboli s/p embolectomy Feb 2018 Rheumatoid Arthritis Spondylosis Hyperlipidemia - Current Medication List Current Medications: Active Medications Acetaminophen (Tylenol -) 325 mg PO Q4H PRN PRN Reason: FEVER Last Admin: 03/26/20 08:42 Dose: 325 mg Documented by: Albuterol Sulfate (Ventolin Hfa Inhaler -) 2 puff IH Q4H PRN PRN Reason: SHORTNESS OF BREATH Amino Acids (Prosource No Carb Liquid Pkt) 30 ml PO BID@0800,1730 [facility] Last Admin: 03/28/20 08:16 Dose: 30 ml Documented by: Apixaban (Eliquis -) 5 mg PO BID [facility] Last Admin: 03/28/20 09:52 Dose: 5 mg Documented by: Atorvastatin Calcium (Lipitor -) 20 mg PO HS [facility] Last Admin: 03/27/20 21:45 Dose: 20 mg Documented by: Budesonide/Formoterol Fumarate (Symbicort 160/4.5mcg -) 2 puff IH BID [facility] Last Admin: 03/28/20 09:54 Dose: 2 puff Documented by: Calcium Carbonate (Os-Scott 500mg -) 500 mg PO DAILY [facility] Last Admin: 03/28/20 09:53 Dose: 500 mg Documented by: Docusate Sodium (Colace -) 100 mg PO TID [facility] Last Admin: 03/28/20 13:30 Dose: 100 mg Documented by: Fentanyl (Sublimaze Injection -) 50 mcg IVPUSH [id number] PRN PRN Reason: PAIN-PACU ORDER X 4 DOSES ONLY Ferrous Sulfate (Feosol -) 325 mg PO BIDWM [facility] Last Admin: 03/28/20 08:16 Dose: 325 mg Documented by: Folic Acid (Folic Acid -) 1 mg PO DAILY [facility] Last Admin: 03/28/20 09:53 Dose: 1 mg Documented by: Piperacillin Sod/Tazobactam (Sod 3.375 gm/ Dextrose) 50 mls @ 100 mls/hr IVPB Q8H-IV [facility]; Protocol Last Admin: 03/28/20 09:54 Dose: 100 mls/hr Documented by: Insulin Aspart (Novolog Vial Sliding Scale -) 1 vial SQ ACHS [facility]; Protocol Last Admin: 03/28/20 11:43 Dose: 4 units Documented by: Insulin Detemir (Levemir Vial) 10 units SQ BID@0700,2200 [facility] Leflunomide (Arava -) 10 mg PO DAILY [facility] Last Admin: 03/28/20 09:52 Dose: 10 mg Documented by: Loratadine (Claritin -) 10 mg PO DAILY [facility] Last Admin: 03/28/20 09:52 Dose: 10 mg Documented by: Losartan Potassium (Cozaar -) 25 mg PO DAILY [facility] Last Admin: 03/28/20 09:52 Dose: 25 mg Documented by: Methylprednisolone (Medrol -) 4 mg PO DAILY [facility] Last Admin: 03/28/20 09:53 Dose: 4 mg Documented by: Metoprolol Tartrate (Lopressor -) 25 mg PO DAILY [facility] Last Admin: 03/28/20 09:53 Dose: 25 mg Documented by: Morphine Sulfate (Morphine Sulfate) 4 mg IVPUSH Q6H PRN PRN Reason: PAIN LEVEL 4-10 Last Admin: 03/28/20 10:48 Dose: 4 mg Documented by: Multivitamins/Minerals/Vitamin C (Tab-A-Vit -) 1 tab PO DAILY [facility] Last Admin: 03/28/20 09:54 Dose: 1 tab Documented by: Ondansetron HCl (Zofran Injection) 4 mg IVPUSH Q6H PRN PRN Reason: NAUSEA AND/OR VOMITING Ondansetron HCl (Zofran Injection) 4 mg IVPUSH Q6H PRN PRN Reason: NAUSEA AND/OR VOMITING Pantoprazole Sodium (Protonix -) 40 mg PO DAILY [facility] Last Admin: 03/28/20 09:54 Dose: 40 mg Documented by: - Objective Vital Signs: Vital Signs Temperature 98.5 F 03/28/20 08:15 Pulse Rate 88 03/28/20 08:15 Respiratory Rate 20 03/28/20 08:15 Blood Pressure 136/71 03/28/20 08:15 O2 Sat by Pulse Oximetry (%) 97 03/28/20 08:15 Eyes: Yes: WNL, Conjunctiva Clear, EOM Intact HENT: Yes: WNL, Atraumatic, Normocephalic Neck: Yes: WNL, Supple, Trachea Midline Cardiovascular: Yes: WNL, Regular Rate and Rhythm Respiratory: Yes: WNL, Regular, CTA Bilaterally Gastrointestinal: Yes: WNL, Normal Bowel Sounds Genitourinary: Yes: WNL Musculoskeletal: Yes: WNL Extremities: Yes: Amputation Edema: No Integumentary: Yes: WNL Neurological: Yes: WNL, Alert, Oriented ...Motor Strength: WNL Psychiatric: Yes: WNL Labs: CBC, BMP 03/28/20 06:50 03/28/20 06:50 Problem List - Problems (1) S/P transmetatarsal amputation of foot Code(s): Z89.439 - ACQUIRED ABSENCE OF UNSPECIFIED FOOT (2) Cellulitis of left foot Code(s): L03.116 - CELLULITIS OF LEFT LOWER LIMB (3) Diabetic foot ulcer Code(s): E11.621 - TYPE 2 DIABETES MELLITUS WITH FOOT ULCER; L97.509 - NON- PRESSURE CHRONIC ULCER OTH PRT UNSP FOOT W UNSP SEVERITY (4) Gangrene of toe of left foot Code(s): I96 - GANGRENE, NOT ELSEWHERE CLASSIFIED (5) ILD (interstitial lung disease) Code(s): J84.9 - INTERSTITIAL PULMONARY DISEASE, UNSPECIFIED (6) PVD (peripheral vascular disease) Code(s): I73.9 - PERIPHERAL VASCULAR DISEASE, UNSPECIFIED (7) Painful amputation stump Code(s): T87.89 - OTHER COMPLICATIONS OF AMPUTATION STUMP; M79.609 - PAIN IN UNSPECIFIED LIMB (8) Pneumonia Code(s): J18.9 - PNEUMONIA, UNSPECIFIED ORGANISM Qualifiers: Laterality: left Lung location: lower lobe of lung (9) Sepsis due to cellulitis Code(s): L03.90 - CELLULITIS, UNSPECIFIED; A41.9 - SEPSIS, UNSPECIFIED ORGANISM (10) Shortness of breath Code(s): R06.02 - SHORTNESS OF BREATH (11) Status post amputation of left great toe Code(s): Z89.412 - ACQUIRED ABSENCE OF LEFT GREAT TOE (12) Toe pain Code(s): M79.676 - PAIN IN UNSPECIFIED TOE(S) (13) Hypercholesterolemia Code(s): E78.00 - PURE HYPERCHOLESTEROLEMIA, UNSPECIFIED (14) Hypertension Code(s): I10 - ESSENTIAL (PRIMARY) HYPERTENSION (15) Recurrent pulmonary embolism Code(s): I26.99 - OTHER PULMONARY EMBOLISM WITHOUT ACUTE COR PULMONALE (16) Rheumatoid arthritis Code(s): M06.9 - RHEUMATOID ARTHRITIS, UNSPECIFIED (17) Type 2 diabetes mellitus Code(s): E11.9 - TYPE 2 DIABETES MELLITUS WITHOUT COMPLICATIONS (18) Venous insufficiency Code(s): I87.2 - VENOUS INSUFFICIENCY (CHRONIC) (PERIPHERAL) Assessment/Plan 64-year-old male with past medical history of hypertension hyperlipidemia rheumatoid arthritis GERD JAMES also PE coronary artery disease diabetes with neuropathy admitted for left foot osteomyelitis status post below-knee amputation. Cardiac castro stable Cont AC
--- NOTE | 2020-03-28 15:46 | PN ---
Physical Exam: SUBJECTIVE: Patient seen and examined at bedside. No acute events overnight. Pt states he slept well. Pain well-controlled. OBJECTIVE: Vital Signs Period Temp Pulse Resp BP Sys/Dawson Pulse Ox Last 24 Hr 98.3 F-98.5 F 88-96 - 116-136/55-71 96-98 GENERAL: The patient is awake, alert, and fully oriented, in no acute distress. HEAD: Normal with no signs of trauma. EYES: Sclera anicteric, conjunctiva clear. ENT: Ears normal, nares patent, oropharynx clear without exudates, moist mucous membranes. LUNGS: diffuse crackles bilaterally, no accessory muscle use. HEART: Regular rate and rhythm, S1, S2 without murmur, rub or gallop. ABDOMEN: Soft, nontender, nondistended, normoactive bowel sounds EXTREMITIES: 2+ R. dorsal pedal pulse, warm, no calf tenderness, well-perfused, no edema. LLE bandaged by wound care--> warm nontender in immobilizer NEUROLOGICAL: Normal speech, gait not observed. PSYCH: Normal mood, normal affect. SKIN: Warm, dry, normal turgor CBCD WBC 14.5 K/mm3 (4.0-10.0) H 03/28/20 06:50 RBC 3.30 M/mm3 (4.00-5.60) L 03/28/20 06:50 Hgb 9.0 GM/dL (11.7-16.9) L 03/28/20 06:50 Hct 28.2 % (35.4-49) L 03/28/20 06:50 MCV 85.7 fl (80-96) 03/28/20 06:50 MCHC 32.0 g/dl (32.0-35.9) 03/28/20 06:50 RDW 14.6 % (11.9-15.9) 03/28/20 06:50 Plt Count 779 K/MM3 (134-434) H 03/28/20 06:50 MPV 7.5 fl (7.5-11.1) 03/28/20 06:50 CMP Sodium 136 mmol/L (136-145) 03/28/20 06:50 Potassium 4.3 mmol/L (3.5-5.1) 03/28/20 06:50 Chloride 106 mmol/L (98-107) 03/28/20 06:50 Carbon Dioxide 22 mmol/L (21-32) 03/28/20 06:50 Anion Gap 8 MMOL/L (8-16) 03/28/20 06:50 BUN 11.5 mg/dL (7-18) 03/28/20 06:50 Creatinine 0.8 mg/dL (0.55-1.3) 03/28/20 06:50 Calcium 7.8 mg/dL (8.5-10.1) L 03/28/20 06:50 Total Bilirubin 0.9 mg/dL (0.2-1) 03/27/20 06:55 AST 23 U/L (15-37) 03/27/20 06:55 ALT 27 U/L (13-61) 03/27/20 06:55 Alkaline Phosphatase 131 U/L (45-117) H 03/27/20 06:55 Total Protein 6.3 g/dl (6.4-8.2) L 03/27/20 06:55 Albumin 2.0 g/dl (3.4-5.0) L 03/27/20 06:55 Active Medications Generic Name Dose Route Start Last Admin Trade Name Freq PRN Reason Stop Dose Admin Acetaminophen 325 mg 03/22/20 11:24 03/26/20 08:42 Tylenol - PO 325 mg Q4H PRN Administration FEVER Albuterol Sulfate 2 puff 03/22/20 11:24 Ventolin Hfa Inhaler - IH Q4H PRN SHORTNESS OF BREATH Amino Acids 30 ml 03/22/20 17:30 03/28/20 08:16 Prosource No Carb Liquid Pkt PO 30 ml BID@0800,1730 [facility] Administration Apixaban 5 mg 03/23/20 22:00 03/28/20 09:52 Eliquis - PO 5 mg BID [facility] Administration Atorvastatin Calcium 20 mg 03/22/20 22:00 03/27/20 21:45 Lipitor - PO 20 mg HS [facility] Administration Budesonide/Formoterol Fumarate 2 puff 03/22/20 22:00 03/28/20 09:54 Symbicort 160/4.5mcg - IH 2 puff BID [facility] Administration Calcium Carbonate 500 mg 03/23/20 10:00 03/28/20 09:53 Os-Scott 500mg - PO 500 mg DAILY [facility] Administration Docusate Sodium 100 mg 03/22/20 14:00 03/28/20 13:30 Colace - PO 100 mg TID [facility] Administration Fentanyl 50 mcg 03/22/20 09:54 Sublimaze Injection - IVPUSH [id number] PRN PAIN-PACU ORDER X 4 DOSES ONLY Ferrous Sulfate 325 mg 03/22/20 17:30 03/28/20 08:16 Feosol - PO 325 mg BIDWM [facility] Administration Folic Acid 1 mg 03/23/20 10:00 03/28/20 09:53 Folic Acid - PO 1 mg DAILY [facility] Administration Piperacillin Sod/Tazobactam 50 mls @ 100 mls/hr 03/22/20 18:00 03/28/20 09:54 Sod 3.375 gm/ Dextrose IVPB 100 mls/hr Q8H-IV [facility] Administration Protocol Insulin Aspart 1 vial 03/22/20 16:30 03/28/20 11:43 Novolog Vial Sliding Scale - SQ 4 units ACHS [facility] Administration Protocol Insulin Detemir 10 units 03/28/20 22:00 Levemir Vial SQ BID@0700,2200 [facility] Leflunomide 10 mg 03/23/20 10:00 03/28/20 09:52 Arava - PO 10 mg DAILY [facility] Administration Loratadine 10 mg 03/23/20 10:00 03/28/20 09:52 Claritin - PO 10 mg DAILY [facility] Administration Losartan Potassium 25 mg 03/23/20 10:00 03/28/20 09:52 Cozaar - PO 25 mg DAILY [facility] Administration Methylprednisolone 4 mg 03/23/20 10:00 03/28/20 09:53 Medrol - PO 4 mg DAILY [facility] Administration Metoprolol Tartrate 25 mg 03/23/20 10:00 03/28/20 09:53 Lopressor - PO 25 mg DAILY [facility] Administration Morphine Sulfate 4 mg 03/26/20 18:24 03/28/20 10:48 Morphine Sulfate IVPUSH 4 mg Q6H PRN Administration PAIN LEVEL 4-10 Multivitamins/Minerals/Vitamin C 1 tab 03/23/20 10:00 03/28/20 09:54 Tab-A-Vit - PO 1 tab DAILY [facility] Administration Ondansetron HCl 4 mg 03/22/20 09:54 Zofran Injection IVPUSH Q6H PRN NAUSEA AND/OR VOMITING Ondansetron HCl 4 mg 03/22/20 11:24 Zofran Injection IVPUSH Q6H PRN NAUSEA AND/OR VOMITING Pantoprazole Sodium 40 mg 03/23/20 10:00 03/28/20 09:54 Protonix - PO 40 mg DAILY [facility] Administration ASSESSMENT/PLAN: 64 y.o. M w/ PMHx. of HTN, DM, PVD, RA, GERD, Iron Deficiency Anemia and Hx. of PE presented with L. foot gangrene. Pt. is s/p L. TMA and L. BKA #L. foot TMA and BKA with Leukocytosis and Thrombocytosis; s/p Left TMA 03/15 and Left BKA 03/22 -Consults to wound care, Podiatry and ID appreciated -continue IV Zosyn (Day 12) -Clean margins as per surgical pathology report. The infected portion had OM, abscess formation, and necrosis( including the stump s/p TMA prior to BKA). -Pain control -BCx/UCx neg -WBC trending down and afebrile; per ID, cont IV Zosyn (Day 12) -c/w immobilizer -ESR: 108 and CRP: 9.5 -WBCs trending down, We are concerned that platelets have been rising over the last days suggesting these is a chronic infection #HTN #DM #Hx. of multiple PE #ILD #PVD #GERD #RA #Anemia 2/2 Iron deficiency and chronic disease c/w home medications Levemir 10U BID consult to Heme/Onc appreciated for history of multiple PE consult to Pulmonology appreciated for dyspnea, congested sounding cough in the setting of ILD--> CXR clear f/u Iron studies #FEN LR @ 75 monitor electrolytes and replete as needed Diabetic/Sodium diet #Prophylxis DVT: Cont home med Eliquis 5 mg BID #Dispo--> awaiting placement for rehab. f/u Rpt. Covid Swab Visit type - Emergency Visit Emergency Visit: Yes ED Registration Date: 03/15/20 Care time: The patient presented to the Emergency Department on the above date and was hospitalized for further evaluation of their emergent condition. - New Patient This patient is new to me today: Yes Date on this admission: 03/28/20 - Critical Care Critical Care patient: No - Discharge Referral Referred to [facility] Med [facility] No ATTENDING PHYSICIAN STATEMENT I saw and evaluated the patient. I reviewed the resident's note and discussed the case with the resident. I agree with the resident's findings and plan as documented. SUBJECTIVE: OBJECTIVE: ASSESSMENT AND PLAN:
[2020-03-28] MEDS: INSULIN (LEVEMIR) 100 UNITS/ML UNITS SQ SCH ×3 (20:02→22:23)
[2020-03-28] MEDS: ATORVASTATIN CA 20 MG TABLET (FP) PO SCH (22:23)
[2020-03-29] MEDS ORDERED: DEXTROSE 5%-WATER - 50 ML IVPB ONE ×3 (02:04→17:00)
[2020-03-29] MEDS ORDERED: PIPERACILLIN/TAZOBACTAM 3.375 GM VIAL IVPB ONE ×3 (02:04→16:59)
[2020-03-29] MEDS: PIPERACILLIN/TAZOB 3.375 GM 3.375 GM in DEXTROSE 5%-WATER - 50 ML IVPB SCH ×2 (02:18→10:14)
[2020-03-29] MEDS: DOCUSATE SODIUM 100 MG CAPSULE (FP) PO SCH ×3 (05:59→21:26)
[2020-03-29] MEDS: morphine SULFATE 4 MG/ML VIAL IVPUSH PRN ×3 (05:59→21:28)
[2020-03-29] MEDS: INSULIN (LEVEMIR) 100 UNITS/ML UNITS SQ SCH ×2 (06:31→21:26)
[2020-03-29] MEDS: INSULIN SLIDING SCALE (NOVOLOG) 1 VIAL SQ SCH ×4 (06:32→21:27)
--- NOTE | 2020-03-29 08:01 | PN ---
Progress Note, Physician History of Present Illness: PULMONARY ALERT,COMFORTABLE,-SOB,LESS COUGH - Current Medication List Current Medications: Active Medications Acetaminophen (Tylenol -) 325 mg PO Q4H PRN PRN Reason: FEVER Last Admin: 03/26/20 08:42 Dose: 325 mg Documented by: Albuterol Sulfate (Ventolin Hfa Inhaler -) 2 puff IH Q4H PRN PRN Reason: SHORTNESS OF BREATH Amino Acids (Prosource No Carb Liquid Pkt) 30 ml PO BID@0800,1730 [facility] Last Admin: 03/28/20 17:17 Dose: 30 ml Documented by: Apixaban (Eliquis -) 5 mg PO BID [facility] Last Admin: 03/28/20 22:23 Dose: 5 mg Documented by: Atorvastatin Calcium (Lipitor -) 20 mg PO HS [facility] Last Admin: 03/28/20 22:23 Dose: 20 mg Documented by: Budesonide/Formoterol Fumarate (Symbicort 160/4.5mcg -) 2 puff IH BID [facility] Last Admin: 03/28/20 22:59 Dose: 2 puff Documented by: Calcium Carbonate (Os-Scott 500mg -) 500 mg PO DAILY [facility] Last Admin: 03/28/20 09:53 Dose: 500 mg Documented by: Docusate Sodium (Colace -) 100 mg PO TID [facility] Last Admin: 03/29/20 05:59 Dose: 100 mg Documented by: Fentanyl (Sublimaze Injection -) 50 mcg IVPUSH [id number] PRN PRN Reason: PAIN-PACU ORDER X 4 DOSES ONLY Ferrous Sulfate (Feosol -) 325 mg PO BIDWM [facility] Last Admin: 03/28/20 17:17 Dose: 325 mg Documented by: Folic Acid (Folic Acid -) 1 mg PO DAILY [facility] Last Admin: 03/28/20 09:53 Dose: 1 mg Documented by: Piperacillin Sod/Tazobactam (Sod 3.375 gm/ Dextrose) 50 mls @ 100 mls/hr IVPB Q8H-IV [facility]; Protocol Last Admin: 03/29/20 02:18 Dose: 100 mls/hr Documented by: Insulin Aspart (Novolog Vial Sliding Scale -) 1 vial SQ ACHS [facility]; Protocol Last Admin: 03/29/20 06:32 Dose: 4 units Documented by: Insulin Detemir (Levemir Vial) 10 units SQ BID@0700,2200 [facility] Last Admin: 03/29/20 06:31 Dose: 10 units Documented by: Leflunomide (Arava -) 10 mg PO DAILY [facility] Last Admin: 03/28/20 09:52 Dose: 10 mg Documented by: Loratadine (Claritin -) 10 mg PO DAILY [facility] Last Admin: 03/28/20 09:52 Dose: 10 mg Documented by: Losartan Potassium (Cozaar -) 25 mg PO DAILY [facility] Last Admin: 03/28/20 09:52 Dose: 25 mg Documented by: Methylprednisolone (Medrol -) 4 mg PO DAILY [facility] Last Admin: 03/28/20 09:53 Dose: 4 mg Documented by: Metoprolol Tartrate (Lopressor -) 25 mg PO DAILY [facility] Last Admin: 03/28/20 09:53 Dose: 25 mg Documented by: Morphine Sulfate (Morphine Sulfate) 4 mg IVPUSH Q6H PRN PRN Reason: PAIN LEVEL 4-10 Last Admin: 03/29/20 05:59 Dose: 4 mg Documented by: Multivitamins/Minerals/Vitamin C (Tab-A-Vit -) 1 tab PO DAILY [facility] Last Admin: 03/28/20 09:54 Dose: 1 tab Documented by: Ondansetron HCl (Zofran Injection) 4 mg IVPUSH Q6H PRN PRN Reason: NAUSEA AND/OR VOMITING Ondansetron HCl (Zofran Injection) 4 mg IVPUSH Q6H PRN PRN Reason: NAUSEA AND/OR VOMITING Pantoprazole Sodium (Protonix -) 40 mg PO DAILY [facility] Last Admin: 03/28/20 09:54 Dose: 40 mg Documented by: - Objective Vital Signs: Vital Signs Temperature 98.1 F 03/29/20 06:04 Pulse Rate 93 H 03/29/20 06:04 Respiratory Rate 18 03/29/20 06:04 Blood Pressure 116/65 03/29/20 06:04 O2 Sat by Pulse Oximetry (%) 96 03/29/20 06:04 Constitutional: Yes: No Distress, Calm, Thin Eyes: Yes: WNL HENT: Yes: WNL Neck: Yes: WNL Cardiovascular: Yes: Regular Rate and Rhythm, S1, S2 Respiratory: Yes: Rales (SCATTERED JANY CRACKLES) Gastrointestinal: Yes: Normal Bowel Sounds, Soft Extremities: Yes: Amputation (LEF), Other (LEFT BKA) Edema: No Labs: Problem List - Problems (1) S/P transmetatarsal amputation of foot Code(s): Z89.439 - ACQUIRED ABSENCE OF UNSPECIFIED FOOT (2) Diabetic foot ulcer Code(s): E11.621 - TYPE 2 DIABETES MELLITUS WITH FOOT ULCER; L97.509 - NON- PRESSURE CHRONIC ULCER OTH PRT UNSP FOOT W UNSP SEVERITY (3) Gangrene of toe of left foot Code(s): I96 - GANGRENE, NOT ELSEWHERE CLASSIFIED (4) ILD (interstitial lung disease) Code(s): J84.9 - INTERSTITIAL PULMONARY DISEASE, UNSPECIFIED (5) PVD (peripheral vascular disease) Code(s): I73.9 - PERIPHERAL VASCULAR DISEASE, UNSPECIFIED (6) Painful amputation stump Code(s): T87.89 - OTHER COMPLICATIONS OF AMPUTATION STUMP; M79.609 - PAIN IN UNS PECIFIED LIMB (7) Pneumonia Code(s): J18.9 - PNEUMONIA, UNSPECIFIED ORGANISM Qualifiers: Laterality: left Lung location: lower lobe of lung (8) Shortness of breath Code(s): R06.02 - SHORTNESS OF BREATH (9) Hypertension Code(s): I10 - ESSENTIAL (PRIMARY) HYPERTENSION (10) Recurrent pulmonary embolism Code(s): I26.99 - OTHER PULMONARY EMBOLISM WITHOUT ACUTE COR PULMONALE (11) Type 2 diabetes mellitus Code(s): E11.9 - TYPE 2 DIABETES MELLITUS WITHOUT COMPLICATIONS Assessment/Plan IMP DYSPNEA IMPROVED ILD/BRONCHIECTASIS H/O RECURRENT PE 2014,2017 H/O OPEN HEART SURGERY SECONDARY TP PE ? THROMBECTOMY RLL LUNG NODULE ?LLL INFILTRATE HTN PVD DM HLD CHRONIC OSTEOMYELITIS S/P LEFT BKA ANEMIA PLAN SUPPLEMENTAL O2 INHALED BRONCHODILATORS ABX PER ID WOUND CARE MONITOR LYTES,H+H F/U CHEST X-RAYS DR PLASCENCIA Problem List - Problems (1) S/P transmetatarsal amputation of foot Code(s): Z89.439 - ACQUIRED ABSENCE OF UNSPECIFIED FOOT (2) Diabetic foot ulcer Code(s): E11.621 - TYPE 2 DIABETES MELLITUS WITH FOOT ULCER; L97.509 - NON- PRESSURE CHRONIC ULCER OTH PRT UNSP FOOT W UNSP SEVERITY (3) Gangrene of toe of left foot Code(s): I96 - GANGRENE, NOT ELSEWHERE CLASSIFIED (4) ILD (interstitial lung disease) Code(s): J84.9 - INTERSTITIAL PULMONARY DISEASE, UNSPECIFIED (5) PVD (peripheral vascular disease) Code(s): I73.9 - PERIPHERAL VASCULAR DISEASE, UNSPECIFIED (6) Painful amputation stump Code(s): T87.89 - OTHER COMPLICATIONS OF AMPUTATION STUMP; M79.609 - PAIN IN UNSPECIFIED LIMB (7) Pneumonia Code(s): J18.9 - PNEUMONIA, UNSPECIFIED ORGANISM Qualifiers: Laterality: left Lung location: lower lobe of lung (8) Shortness of breath Code(s): R06.02 - SHORTNESS OF BREATH (9) Hypertension Code(s): I10 - ESSENTIAL (PRIMARY) HYPERTENSION (10) Recurrent pulmonary embolism Code(s): I26.99 - OTHER PULMONARY EMBOLISM WITHOUT ACUTE COR PULMONALE (11) Type 2 diabetes mellitus Code(s): E11.9 - TYPE 2 DIABETES MELLITUS WITHOUT COMPLICATIONS
[2020-03-29] MEDS ORDERED: PT OWN MED DRAWER 7, Y5N ONE ×2 (09:04→10:25)
[2020-03-29 09:24] LABS: ALBUMIN 2.2 g/dl (3.4-5.0); BASO % 1.3 % (0-2.0); BILIRUBIN,TOTAL 0.3 mg/dL (0.2-1); BLOOD UREA NITROGEN 11.1 mg/dL (7-18); CALCIUM 8.2 mg/dL (8.5-10.1); CREATININE 0.7 mg/dL (0.55-1.3); EOS % 4.3 % (0-4.5); HEMATOCRIT 28.7 % (35.4-49); HEMOGLOBIN 9.2 GM/dL (11.7-16.9); LYMPH % 17.1 % (8-40); MCH 27.5 pg (25.7-33.7); MCHC 32.2 g/dl (32.0-35.9); MEAN CELL VOLUME 85.4 fl (80-96); MEAN PLT VOLUME 7.5 fl (7.5-11.1); MONO % 9.5 % (3.8-10.2); NEUT % 67.8 % (42.8-82.8); PLATELET COUNT 803 K/MM3 (134-434); POTASSIUM 4.4 mmol/L (3.5-5.1); RBC 3.36 M/mm3 (4.00-5.60); RDW 14.9 % (11.9-15.9); TOT PROT 6.2 g/dl (6.4-8.2); WHITE BLOOD COUNT 13.4 K/mm3 (4.0-10.0)
[2020-03-29] MEDS: APIXABAN 5 MG TABLET PO SCH ×2 (10:13→21:26)
[2020-03-29] MEDS: FOLIC ACID 1 MG TABLET (FP) PO SCH (10:13)
[2020-03-29] MEDS: LOSARTAN POTASSIUM 25 MG TABLET PO SCH (10:13)
[2020-03-29] MEDS: FERROUS SO4 325 MG TABLET (FP) PO SCH ×2 (10:13→16:38)
[2020-03-29] MEDS: CALCIUM (OYSTER SHELL) 500 MG TABLET (FP) PO SCH (10:13)
[2020-03-29] MEDS: PANTOPRAZOLE 20 MG TABLET PO SCH (10:13)
[2020-03-29] MEDS: METOPROLOL TARTRATE 25 MG TABLET (FP) PO SCH (10:14)
[2020-03-29] MEDS: LORATADINE 10 MG TABLET PO SCH (10:14)
[2020-03-29] MEDS: MULTIVITAMINS (DAILY MVI) TABLET (FP) PO SCH (10:14)
[2020-03-29] MEDS: AMINO ACIDS/PROTEIN HYDROLYS 30 ML LIQUID.PKT PO SCH ×2 (10:14→16:39)
[2020-03-29] MEDS: BUDESONIDE/FORMETEROL FUMARATE 160/4.5 mcg INHALER IH SCH ×2 (10:35→21:25)
[2020-03-29] MEDS: LEFLUNOMIDE 10 MG TABLET PO SCH (10:35)
[2020-03-29] MEDS: methylPREDNISolone 4 MG TABLET PO SCH (10:35)
[2020-03-29 11:41] LABS: ANISOCYTOSIS 1+; MACROCYTOSIS 0; PLATELET ESTIMATE INCREASED
--- NOTE | 2020-03-29 12:30 | PN ---
Progress Note, Physician History of Present Illness: wbc trending down stable - Current Medication List Current Medications: Active Medications Acetaminophen (Tylenol -) 325 mg PO Q4H PRN PRN Reason: FEVER Last Admin: 03/26/20 08:42 Dose: 325 mg Documented by: Albuterol Sulfate (Ventolin Hfa Inhaler -) 2 puff IH Q4H PRN PRN Reason: SHORTNESS OF BREATH Amino Acids (Prosource No Carb Liquid Pkt) 30 ml PO BID@0800,1730 [facility] Last Admin: 03/29/20 10:14 Dose: 30 ml Documented by: Apixaban (Eliquis -) 5 mg PO BID [facility] Last Admin: 03/29/20 10:13 Dose: 5 mg Documented by: Atorvastatin Calcium (Lipitor -) 20 mg PO HS [facility] Last Admin: 03/28/20 22:23 Dose: 20 mg Documented by: Budesonide/Formoterol Fumarate (Symbicort 160/4.5mcg -) 2 puff IH BID [facility] Last Admin: 03/29/20 10:35 Dose: 2 puff Documented by: Calcium Carbonate (Os-Scott 500mg -) 500 mg PO DAILY [facility] Last Admin: 03/29/20 10:13 Dose: 500 mg Documented by: Docusate Sodium (Colace -) 100 mg PO TID [facility] Last Admin: 03/29/20 05:59 Dose: 100 mg Documented by: Fentanyl (Sublimaze Injection -) 50 mcg IVPUSH [id number] PRN PRN Reason: PAIN-PACU ORDER X 4 DOSES ONLY Ferrous Sulfate (Feosol -) 325 mg PO BIDWM [facility] Last Admin: 03/29/20 10:13 Dose: 325 mg Documented by: Folic Acid (Folic Acid -) 1 mg PO DAILY [facility] Last Admin: 03/29/20 10:13 Dose: 1 mg Documented by: Piperacillin Sod/Tazobactam (Sod 3.375 gm/ Dextrose) 50 mls @ 100 mls/hr IVPB Q8H-IV [facility]; Protocol Last Admin: 03/29/20 10:14 Dose: 100 mls/hr Documented by: Insulin Aspart (Novolog Vial Sliding Scale -) 1 vial SQ ACHS [facility]; Protocol Last Admin: 03/29/20 12:03 Dose: 6 units Documented by: Insulin Detemir (Levemir Vial) 10 units SQ BID@0700,2200 [facility] Last Admin: 03/29/20 06:31 Dose: 10 units Documented by: Leflunomide (Arava -) 10 mg PO DAILY [facility] Last Admin: 03/29/20 10:35 Dose: 10 mg Documented by: Loratadine (Claritin -) 10 mg PO DAILY [facility] Last Admin: 03/29/20 10:14 Dose: 10 mg Documented by: Losartan Potassium (Cozaar -) 25 mg PO DAILY [facility] Last Admin: 03/29/20 10:13 Dose: 25 mg Documented by: Methylprednisolone (Medrol -) 4 mg PO DAILY [facility] Last Admin: 03/29/20 10:35 Dose: 4 mg Documented by: Metoprolol Tartrate (Lopressor -) 25 mg PO DAILY [facility] Last Admin: 03/29/20 10:14 Dose: 25 mg Documented by: Morphine Sulfate (Morphine Sulfate) 4 mg IVPUSH Q6H PRN PRN Reason: PAIN LEVEL 4-10 Last Admin: 03/29/20 11:00 Dose: 4 mg Documented by: Multivitamins/Minerals/Vitamin C (Tab-A-Vit -) 1 tab PO DAILY [facility] Last Admin: 03/29/20 10:14 Dose: 1 tab Documented by: Ondansetron HCl (Zofran Injection) 4 mg IVPUSH Q6H PRN PRN Reason: NAUSEA AND/OR VOMITING Ondansetron HCl (Zofran Injection) 4 mg IVPUSH Q6H PRN PRN Reason: NAUSEA AND/OR VOMITING Pantoprazole Sodium (Protonix -) 40 mg PO DAILY [facility] Last Admin: 03/29/20 10:13 Dose: 40 mg Documented by: - Objective Vital Signs: Vital Signs Temperature 98.1 F 03/29/20 06:04 Pulse Rate 93 H 03/29/20 06:04 Respiratory Rate 18 03/29/20 06:04 Blood Pressure 116/65 03/29/20 06:04 O2 Sat by Pulse Oximetry (%) 96 03/29/20 06:04 Constitutional: Yes: No Distress, Calm Cardiovascular: Yes: S1, S2 Respiratory: Yes: Regular, CTA Bilaterally Gastrointestinal: Yes: Normal Bowel Sounds, Soft Musculoskeletal: Yes: WNL Extremities: Yes: WNL Neurological: Yes: Alert, Oriented Psychiatric: Yes: Alert, Oriented Labs: CBC, BMP 03/29/20 07:53 03/29/20 07:53 Assessment/Plan 64 y.o. M w/ PMHx. of HTN, DM, PVD, RA, GERD, Iron Deficiency Anemia and Hx. of PE presented with L. foot gangrene. Pt. is s/p L. TMA L. foot TMA htn pna dm gerd h/o of pe plan continue abx wound care monitor wbc rest as per the team
--- NOTE | 2020-03-29 12:52 | PN ---
Progress Note, Physician History of Present Illness: 64-year-old male with past medical history of hypertension hyperlipidemia rheumatoid arthritis GERD JAMES also PE coronary artery disease diabetes with neuropathy admitted for left foot osteomyelitis status post below-knee amputation. PMH Asthma Bronchiectasis Type 2 Diabetes 2000 Esophageal Reflux Hypertension Pulmonary Embolism 2014. treated for 1 year Recurrent pulmonary emboli s/p embolectomy Feb 2018 Rheumatoid Arthritis Spondylosis Hyperlipidemia - Current Medication List Current Medications: Active Medications Acetaminophen (Tylenol -) 325 mg PO Q4H PRN PRN Reason: FEVER Last Admin: 03/26/20 08:42 Dose: 325 mg Documented by: Albuterol Sulfate (Ventolin Hfa Inhaler -) 2 puff IH Q4H PRN PRN Reason: SHORTNESS OF BREATH Amino Acids (Prosource No Carb Liquid Pkt) 30 ml PO BID@0800,1730 [facility] Last Admin: 03/29/20 10:14 Dose: 30 ml Documented by: Apixaban (Eliquis -) 5 mg PO BID [facility] Last Admin: 03/29/20 10:13 Dose: 5 mg Documented by: Atorvastatin Calcium (Lipitor -) 20 mg PO HS [facility] Last Admin: 03/28/20 22:23 Dose: 20 mg Documented by: Budesonide/Formoterol Fumarate (Symbicort 160/4.5mcg -) 2 puff IH BID [facility] Last Admin: 03/29/20 10:35 Dose: 2 puff Documented by: Calcium Carbonate (Os-Scott 500mg -) 500 mg PO DAILY [facility] Last Admin: 03/29/20 10:13 Dose: 500 mg Documented by: Docusate Sodium (Colace -) 100 mg PO TID [facility] Last Admin: 03/29/20 05:59 Dose: 100 mg Documented by: Fentanyl (Sublimaze Injection -) 50 mcg IVPUSH [id number] PRN PRN Reason: PAIN-PACU ORDER X 4 DOSES ONLY Ferrous Sulfate (Feosol -) 325 mg PO BIDWM [facility] Last Admin: 03/29/20 10:13 Dose: 325 mg Documented by: Folic Acid (Folic Acid -) 1 mg PO DAILY [facility] Last Admin: 03/29/20 10:13 Dose: 1 mg Documented by: Piperacillin Sod/Tazobactam (Sod 3.375 gm/ Dextrose) 50 mls @ 100 mls/hr IVPB Q8H-IV [facility]; Protocol Last Admin: 03/29/20 10:14 Dose: 100 mls/hr Documented by: Insulin Aspart (Novolog Vial Sliding Scale -) 1 vial SQ ACHS [facility]; Protocol Last Admin: 03/29/20 12:03 Dose: 6 units Documented by: Insulin Detemir (Levemir Vial) 10 units SQ BID@0700,2200 [facility] Last Admin: 03/29/20 06:31 Dose: 10 units Documented by: Leflunomide (Arava -) 10 mg PO DAILY [facility] Last Admin: 03/29/20 10:35 Dose: 10 mg Documented by: Loratadine (Claritin -) 10 mg PO DAILY [facility] Last Admin: 03/29/20 10:14 Dose: 10 mg Documented by: Losartan Potassium (Cozaar -) 25 mg PO DAILY [facility] Last Admin: 03/29/20 10:13 Dose: 25 mg Documented by: Methylprednisolone (Medrol -) 4 mg PO DAILY [facility] Last Admin: 03/29/20 10:35 Dose: 4 mg Documented by: Metoprolol Tartrate (Lopressor -) 25 mg PO DAILY [facility] Last Admin: 03/29/20 10:14 Dose: 25 mg Documented by: Morphine Sulfate (Morphine Sulfate) 4 mg IVPUSH Q6H PRN PRN Reason: PAIN LEVEL 4-10 Last Admin: 03/29/20 11:00 Dose: 4 mg Documented by: Multivitamins/Minerals/Vitamin C (Tab-A-Vit -) 1 tab PO DAILY [facility] Last Admin: 03/29/20 10:14 Dose: 1 tab Documented by: Ondansetron HCl (Zofran Injection) 4 mg IVPUSH Q6H PRN PRN Reason: NAUSEA AND/OR VOMITING Ondansetron HCl (Zofran Injection) 4 mg IVPUSH Q6H PRN PRN Reason: NAUSEA AND/OR VOMITING Pantoprazole Sodium (Protonix -) 40 mg PO DAILY [facility] Last Admin: 03/29/20 10:13 Dose: 40 mg Documented by: - Objective Vital Signs: Vital Signs Temperature 98.1 F 03/29/20 06:04 Pulse Rate 93 H 03/29/20 06:04 Respiratory Rate 18 03/29/20 06:04 Blood Pressure 116/65 03/29/20 06:04 O2 Sat by Pulse Oximetry (%) 96 03/29/20 06:04 Eyes: Yes: WNL, Conjunctiva Clear, EOM Intact HENT: Yes: WNL, Atraumatic, Normocephalic Neck: Yes: WNL, Supple, Trachea Midline Cardiovascular: Yes: WNL, Regular Rate and Rhythm Respiratory: Yes: WNL, Regular, CTA Bilaterally Gastrointestinal: Yes: WNL, Normal Bowel Sounds Genitourinary: Yes: WNL Musculoskeletal: Yes: WNL, Muscle Weakness Extremities: Yes: Amputation Edema: No Integumentary: Yes: WNL Neurological: Yes: WNL, Alert, Oriented ...Motor Strength: WNL Psychiatric: Yes: WNL Labs: CBC, BMP 03/29/20 07:53 03/29/20 07:53 Problem List - Problems (1) S/P transmetatarsal amputation of foot Code(s): Z89.439 - ACQUIRED ABSENCE OF UNSPECIFIED FOOT (2) Cellulitis of left foot Code(s): L03.116 - CELLULITIS OF LEFT LOWER LIMB (3) Diabetic foot ulcer Code(s): E11.621 - TYPE 2 DIABETES MELLITUS WITH FOOT ULCER; L97.509 - NON- PRESSURE CHRONIC ULCER OTH PRT UNSP FOOT W UNSP SEVERITY (4) Gangrene of toe of left foot Code(s): I96 - GANGRENE, NOT ELSEWHERE CLASSIFIED (5) ILD (interstitial lung disease) Code(s): J84.9 - INTERSTITIAL PULMONARY DISEASE, UNSPECIFIED (6) PVD (peripheral vascular disease) Code(s): I73.9 - PERIPHERAL VASCULAR DISEASE, UNSPECIFIED (7) Painful amputation stump Code(s): T87.89 - OTHER COMPLICATIONS OF AMPUTATION STUMP; M79.609 - PAIN IN UNSPECIFIED LIMB (8) Pneumonia Code(s): J18.9 - PNEUMONIA, UNSPECIFIED ORGANISM Qualifiers: Laterality: left Lung location: lower lobe of lung (9) Sepsis due to cellulitis Code(s): L03.90 - CELLULITIS, UNSPECIFIED; A41.9 - SEPSIS, UNSPECIFIED ORGANISM (10) Shortness of breath Code(s): R06.02 - SHORTNESS OF BREATH (11) Status post amputation of left great toe Code(s): Z89.412 - ACQUIRED ABSENCE OF LEFT GREAT TOE (12) Toe pain Code(s): M79.676 - PAIN IN UNSPECIFIED TOE(S) (13) Hypercholesterolemia Code(s): E78.00 - PURE HYPERCHOLESTEROLEMIA, UNSPECIFIED (14) Hypertension Code(s): I10 - ESSENTIAL (PRIMARY) HYPERTENSION (15) Recurrent pulmonary embolism Code(s): I26.99 - OTHER PULMONARY EMBOLISM WITHOUT ACUTE COR PULMONALE (16) Rheumatoid arthritis Code(s): M06.9 - RHEUMATOID ARTHRITIS, UNSPECIFIED (17) Type 2 diabetes mellitus Code(s): E11.9 - TYPE 2 DIABETES MELLITUS WITHOUT COMPLICATIONS (18) Venous insufficiency Code(s): I87.2 - VENOUS INSUFFICIENCY (CHRONIC) (PERIPHERAL) Assessment/Plan 64-year-old male with past medical history of hypertension hyperlipidemia rheumatoid arthritis GERD JAMES also PE coronary artery disease diabetes with neuropathy admitted for left foot osteomyelitis status post below-knee amputation. Cardiac castro stable Cont AC
--- NOTE | 2020-03-29 13:21 | PN ---
Teaching Attending Note Name of Resident: Bharati Allen ATTENDING PHYSICIAN STATEMENT I saw and evaluated the patient. I reviewed the resident's note and discussed the case with the resident. I agree with the resident's findings and plan as documented. SUBJECTIVE: Seen and examined at bedside. Patient states pain is controlled and denies sh ortness of breath, chest pain. WBC improving. Discussed with ID. We will continue IV antibiotics over the weekend and reevaluate for discharge on Wednesday. OBJECTIVE Last Vital Signs Temp Pulse Resp BP Pulse Ox 98.1 F 93 H 18 116/65 94 L 03/29/20 06:04 03/29/20 06:04 03/29/20 09:00 03/29/20 06:04 03/29/20 09:00 PE: Per resident note Labs/Imaging: reviewed ASSESSMENT/PLAN 64-year-old male with past medical history of hypertension, diabetes, PVD, RA, GERD, iron deficiency anemia presents with left foot gangrene. 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 #Left foot TMA and BKA Wound care, podiatry, and ID on board: Appreciate recommendations Continue IV Zosyn White count improving Currently afebrile -Discussed with ID. We will continue IV antibiotics over the weekend and reevaluate for discharge on Wednesday. #Leukocytosis/thrombocytosis WBC now trending down. Plts still increasing Is on methylprednisolone chronically but dose has not changed during hospitalization Will monitor overnight. If plts wbc higher may need additional imaging to find area of occult infection Chest x-ray unremarkable #Hypertension, diabetes, history of multiple PE, ILD, PVD, GERD, RA, JAMES Continue home medications
[2020-03-29] MEDS ORDERED: IRON SUCROSE INJECTION 200 MG in SODIUM CHLORIDE 90 ML IVPB ONE (14:28)
--- NOTE | 2020-03-29 14:32 | PN ---
Physical Exam: SUBJECTIVE: Patient seen and examined this AM. No new complaints. OBJECTIVE: Vital Signs Period Temp Pulse Resp BP Sys/Dawson Pulse Ox Last 24 Hr 98.1 F-99 F 91-95 18-18 108-130/65-68 94-99 GENERAL: A&Ox3, NAD HEAD: NCAT EYES: EOMI ENT: MMM LUNGS: scattered crackles bilaterally HEART: Regular rate and rhythm, S1, S2 ABDOMEN: Soft, nontender, nondistended, + bowel sounds EXTREMITIES: No edema. LLE bandaged SKIN: Warm, dry Laboratory Last Values WBC 13.4 K/mm3 (4.0-10.0) H 03/29/20 07:53 RBC 3.36 M/mm3 (4.00-5.60) L 03/29/20 07:53 Hgb 9.2 GM/dL (11.7-16.9) L 03/29/20 07:53 Hct 28.7 % (35.4-49) L 03/29/20 07:53 MCV 85.4 fl (80-96) 03/29/20 07:53 MCH 27.5 pg (25.7-33.7) 03/29/20 07:53 MCHC 32.2 g/dl (32.0-35.9) 03/29/20 07:53 RDW 14.9 % (11.9-15.9) 03/29/20 07:53 Plt Count 803 K/MM3 (134-434) H 03/29/20 07:53 MPV 7.5 fl (7.5-11.1) 03/29/20 07:53 Absolute Neuts (auto) 9.0 K/mm3 (1.5-8.0) H 03/29/20 07:53 Neutrophils % 67.8 % (42.8-82.8) 03/29/20 07:53 Neutrophils % (Manual) 66.3 % (42.8-82.8) D 03/29/20 07:53 Band Neutrophils % 0.0 % 03/29/20 07:53 Lymphocytes % 17.1 % (8-40) D 03/29/20 07:53 Lymphocytes % (Manual) 16.3 % (8-40) 03/29/20 07:53 Monocytes % 9.5 % (3.8-10.2) 03/29/20 07:53 Monocytes % (Manual) 12 % (3.8-10.2) H D 03/29/20 07:53 Eosinophils % 4.3 % (0-4.5) 03/29/20 07:53 Eosinophils % (Manual) 0.0 % (0-4.5) D 03/29/20 07:53 Basophils % 1.3 % (0-2.0) 03/29/20 07:53 Basophils % (Manual) 2.0 % (0-2.0) 03/29/20 07:53 Myelocytes % (Man) 3 % (0-2) H D 03/29/20 07:53 Promyelocytes % (Man) 0 % (0-2) 03/29/20 07:53 Blast Cells % (Manual) 0 % (0-0) 03/29/20 07:53 Nucleated RBC % 0 % (0-0) 03/29/20 07:53 Metamyelocytes 0 % (0-2) D 03/29/20 07:53 Hypochromia 0 03/29/20 07:53 Platelet Estimate Increased 03/29/20 07:53 Polychromasia 0 03/29/20 07:53 Poikilocytosis 0 03/29/20 07:53 Anisocytosis 1+ 03/29/20 07:53 Microcytosis 0 03/29/20 07:53 Macrocytosis 0 03/29/20 07:53 ESR 114 mm/hr (0-20) H 03/28/20 06:50 Sodium 135 mmol/L (136-145) L 03/29/20 07:53 Potassium 4.4 mmol/L (3.5-5.1) 03/29/20 07:53 Chloride 105 mmol/L (98-107) 03/29/20 07:53 Carbon Dioxide 24 mmol/L (21-32) 03/29/20 07:53 Anion Gap 6 MMOL/L (8-16) L 03/29/20 07:53 BUN 11.1 mg/dL (7-18) 03/29/20 07:53 Creatinine 0.7 mg/dL (0.55-1.3) 03/29/20 07:53 Est GFR (CKD-EPI)AfAm 117.22 03/29/20 07:53 Est GFR (CKD-EPI)NonAf 101.14 03/29/20 07:53 POC Glucometer 257 UNITS (80-120) 03/29/20 11:59 Random Glucose 191 mg/dL (74-106) H 03/29/20 07:53 Lactic Acid 1.3 mmol/L (0.4-2.0) 03/19/20 08:25 Calcium 8.2 mg/dL (8.5-10.1) L 03/29/20 07:53 Phosphorus 2.7 mg/dL (2.5-4.9) 03/26/20 06:30 Magnesium 2.2 mg/dL (1.8-2.4) 03/27/20 06:55 Iron 28 ug/dL (50-175) L 03/28/20 06:50 TIBC 219 ug/dL (250-450) L 03/28/20 06:50 Iron Saturation 12 % (17.5-39) L 03/28/20 06:50 Unsaturated IBC 191 ug/dL (200-275) L 03/28/20 06:50 Ferritin 495.0 ng/ml (8-388) H 03/28/20 06:50 Total Bilirubin 0.3 mg/dL (0.2-1) 03/29/20 07:53 AST 17 U/L (15-37) 03/29/20 07:53 ALT 23 U/L (13-61) 03/29/20 07:53 Alkaline Phosphatase 100 U/L (45-117) 03/29/20 07:53 C-Reactive Protein 5.9 MG/DL (0.00-0.3) H 03/28/20 06:50 Total Protein 6.2 g/dl (6.4-8.2) L 03/29/20 07:53 Albumin 2.2 g/dl (3.4-5.0) L 03/29/20 07:53 Urine Color Yellow 03/18/20 15:15 Urine Appearance Clear 03/18/20 15:15 Urine pH 6.5 (5.0-8.0) 03/18/20 15:15 Ur Specific [place] 1.017 (1.010-1.035) 03/18/20 15:15 Urine Protein 2+ (NEGATIVE) H 03/18/20 15:15 Urine Glucose (UA) Negative (NEGATIVE) 03/18/20 15:15 Urine Ketones Trace (NEGATIVE) H 03/18/20 15:15 Urine Blood 2+ (NEGATIVE) H 03/18/20 15:15 Urine Nitrite Negative (NEGATIVE) 03/18/20 15:15 Urine Bilirubin Negative (NEGATIVE) 03/18/20 15:15 Urine Urobilinogen 1.0 mg/dL (0.2-1.0) 03/18/20 15:15 Ur Leukocyte Esterase Negative (NEGATIVE) 03/18/20 15:15 Urine WBC (Auto) 3 /uL (0-25.8) 03/18/20 15:15 Urine RBC (Auto) 9 /uL (0-23.9) 03/18/20 15:15 Urine Casts (Auto) 0 /uL (0-3.1) 03/18/20 15:15 U Epithel Cells (Auto) 7 /uL (0-25.1) 03/18/20 15:15 Urine Bacteria (Auto) 0 /uL (0-1359) 03/18/20 15:15 Stool Occult Blood Negative (NEGATIVE) 03/28/20 09:30 COVID-19 (OSIRIS) Not detected (Not Detected) 03/27/20 13:19 Blood Type AB POSITIVE 03/21/20 17:25 Antibody Screen Negative 03/21/20 17:25 Crossmatch See Detail 03/21/20 17:25 Microbiology 03/18/20 08:10 Blood - Peripheral Venous Blood Culture - Final NO GROWTH AFTER 5 DAYS INCUBATION 03/18/20 08:20 Blood - Peripheral Venous Blood Culture - Final NO GROWTH AFTER 5 DAYS INCUBATION 03/18/20 15:15 Urine - Urine Clean Catch Urine Culture - Final NO GROWTH OBTAINED Active Medications Acetaminophen (Tylenol -) 325 mg PO Q4H PRN PRN Reason: FEVER Last Admin: 03/26/20 08:42 Dose: 325 mg Documented by: Albuterol Sulfate (Ventolin Hfa Inhaler -) 2 puff IH Q4H PRN PRN Reason: SHORTNESS OF BREATH Amino Acids (Prosource No Carb Liquid Pkt) 30 ml PO BID@0800,1730 [facility] Last Admin: 03/29/20 10:14 Dose: 30 ml Documented by: Apixaban (Eliquis -) 5 mg PO BID [facility] Last Admin: 03/29/20 10:13 Dose: 5 mg Documented by: Atorvastatin Calcium (Lipitor -) 20 mg PO HS [facility] Last Admin: 03/28/20 22:23 Dose: 20 mg Documented by: Budesonide/Formoterol Fumarate (Symbicort 160/4.5mcg -) 2 puff IH BID [facility] Last Admin: 03/29/20 10:35 Dose: 2 puff Documented by: Calcium Carbonate (Os-Scott 500mg -) 500 mg PO DAILY [facility] Last Admin: 03/29/20 10:13 Dose: 500 mg Documented by: Docusate Sodium (Colace -) 100 mg PO TID [facility] Last Admin: 03/29/20 05:59 Dose: 100 mg Documented by: Fentanyl (Sublimaze Injection -) 50 mcg IVPUSH [id number] PRN PRN Reason: PAIN-PACU ORDER X 4 DOSES ONLY Ferrous Sulfate (Feosol -) 325 mg PO BIDWM [facility] Last Admin: 03/29/20 10:13 Dose: 325 mg Documented by: Folic Acid (Folic Acid -) 1 mg PO DAILY [facility] Last Admin: 03/29/20 10:13 Dose: 1 mg Documented by: Piperacillin Sod/Tazobactam (Sod 3.375 gm/ Dextrose) 50 mls @ 100 mls/hr IVPB Q8H-IV [facility]; Protocol Last Admin: 03/29/20 10:14 Dose: 100 mls/hr Documented by: Insulin Aspart (Novolog Vial Sliding Scale -) 1 vial SQ ACHS [facility]; Protocol Last Admin: 03/29/20 12:03 Dose: 6 units Documented by: Insulin Detemir (Levemir Vial) 10 units SQ BID@0700,2200 [facility] Last Admin: 03/29/20 06:31 Dose: 10 units Documented by: Leflunomide (Arava -) 10 mg PO DAILY [facility] Last Admin: 03/29/20 10:35 Dose: 10 mg Documented by: Loratadine (Claritin -) 10 mg PO DAILY [facility] Last Admin: 03/29/20 10:14 Dose: 10 mg Documented by: Losartan Potassium (Cozaar -) 25 mg PO DAILY [facility] Last Admin: 03/29/20 10:13 Dose: 25 mg Documented by: Methylprednisolone (Medrol -) 4 mg PO DAILY [facility] Last Admin: 03/29/20 10:35 Dose: 4 mg Documented by: Metoprolol Tartrate (Lopressor -) 25 mg PO DAILY [facility] Last Admin: 03/29/20 10:14 Dose: 25 mg Documented by: Morphine Sulfate (Morphine Sulfate) 4 mg IVPUSH Q6H PRN PRN Reason: PAIN LEVEL 4-10 Last Admin: 03/29/20 11:00 Dose: 4 mg Documented by: Multivitamins/Minerals/Vitamin C (Tab-A-Vit -) 1 tab PO DAILY [facility] Last Admin: 03/29/20 10:14 Dose: 1 tab Documented by: Ondansetron HCl (Zofran Injection) 4 mg IVPUSH Q6H PRN PRN Reason: NAUSEA AND/OR VOMITING Ondansetron HCl (Zofran Injection) 4 mg IVPUSH Q6H PRN PRN Reason: NAUSEA AND/OR VOMITING Pantoprazole Sodium (Protonix -) 40 mg PO DAILY [facility] Last Admin: 03/29/20 10:13 Dose: 40 mg Documented by: ASSESSMENT/PLAN: 64 y.o. M w/ PMHx. of HTN, DM, PVD, RA, GERD, Iron Deficiency Anemia and Hx. of PE presented with L. foot gangrene. Pt. is s/p L TMA followed by L BKA #L. foot TMA and BKA with Leukocytosis and Thrombocytosis; s/p Left TMA 03/15 and Left BKA 03/22 -Wound care, Podiatry and ID consults appreciated -continue IV Zosyn over the weekend -Analgesia -Leukocytosis trending down and afebrile -Knee immobilizer -Will consider further imaging if WBC begin to trend up #HTN #DM #Hx. of multiple PE #ILD #PVD #GERD #RA #Anemia 2/2 Iron deficiency and chronic disease -Continue home meds -Levemir 10U BID #FEN -No standing fluids -Replete lytes PRN -Diabetic/Sodium diet #Prophylxis DVT: DOAC #Dispo--> awaiting placement for rehab after completing ABx course over the weekend. Visit type - Emergency Visit Emergency Visit: Yes ED Registration Date: 03/15/20 Care time: The patient presented to the Emergency Department on the above date and was hospitalized for further evaluation of their emergent condition. - New Patient This patient is new to me today: Yes Date on this admission: 03/29/20 - Critical Care Critical Care patient: No - Discharge Referral Referred to [facility] Med [facility] No ATTENDING PHYSICIAN STATEMENT I saw and evaluated the patient. I reviewed the resident's note and discussed the case with the resident. I agree with the resident's findings and plan as documented. SUBJECTIVE: OBJECTIVE: ASSESSMENT AND PLAN:
[2020-03-29] MEDS ORDERED: INSULIN (NOVOLOG) ASPART 100 UNITS/ML 10ML VIAL ONE (20:45)
[2020-03-29] MEDS: ATORVASTATIN CA 20 MG TABLET (FP) PO SCH (21:26)
[2020-03-30] MEDS: morphine SULFATE 4 MG/ML VIAL IVPUSH PRN ×2 (04:42→18:25)
[2020-03-30] MEDS: INSULIN (LEVEMIR) 100 UNITS/ML UNITS SQ SCH ×2 (06:35→21:33)
[2020-03-30] MEDS: DOCUSATE SODIUM 100 MG CAPSULE (FP) PO SCH ×3 (06:35→21:33)
[2020-03-30] MEDS: INSULIN SLIDING SCALE (NOVOLOG) 1 VIAL SQ SCH ×4 (06:36→21:38)
--- NOTE | 2020-03-30 06:40 | PN ---
Progress Note, Physician History of Present Illness: pulmonary awake,comfortable,-sob,less cough - Current Medication List Current Medications: Active Medications Acetaminophen (Tylenol -) 325 mg PO Q4H PRN PRN Reason: FEVER Last Admin: 03/26/20 08:42 Dose: 325 mg Documented by: Albuterol Sulfate (Ventolin Hfa Inhaler -) 2 puff IH Q4H PRN PRN Reason: SHORTNESS OF BREATH Amino Acids (Prosource No Carb Liquid Pkt) 30 ml PO BID@0800,1730 [facility] Last Admin: 03/29/20 16:39 Dose: 30 ml Documented by: Apixaban (Eliquis -) 5 mg PO BID [facility] Last Admin: 03/29/20 21:26 Dose: 5 mg Documented by: Atorvastatin Calcium (Lipitor -) 20 mg PO HS [facility] Last Admin: 03/29/20 21:26 Dose: 20 mg Documented by: Budesonide/Formoterol Fumarate (Symbicort 160/4.5mcg -) 2 puff IH BID [facility] Last Admin: 03/29/20 21:25 Dose: 2 puff Documented by: Calcium Carbonate (Os-Scott 500mg -) 500 mg PO DAILY [facility] Last Admin: 03/29/20 10:13 Dose: 500 mg Documented by: Docusate Sodium (Colace -) 100 mg PO TID [facility] Last Admin: 03/30/20 06:35 Dose: 100 mg Documented by: Fentanyl (Sublimaze Injection -) 50 mcg IVPUSH [id number] PRN PRN Reason: PAIN-PACU ORDER X 4 DOSES ONLY Ferrous Sulfate (Feosol -) 325 mg PO BIDWM [facility] Last Admin: 03/29/20 16:38 Dose: 325 mg Documented by: Folic Acid (Folic Acid -) 1 mg PO DAILY [facility] Last Admin: 03/29/20 10:13 Dose: 1 mg Documented by: Insulin Aspart (Novolog Vial Sliding Scale -) 1 vial SQ [facility]; Protocol Last Admin: 03/30/20 06:36 Dose: Not Given Documented by: Insulin Detemir (Levemir Vial) 10 units SQ BID@0700,2200 [facility] Last Admin: 03/30/20 06:35 Dose: 10 units Documented by: Leflunomide (Arava -) 10 mg PO DAILY [facility] Last Admin: 03/29/20 10:35 Dose: 10 mg Documented by: Loratadine (Claritin -) 10 mg PO DAILY [facility] Last Admin: 03/29/20 10:14 Dose: 10 mg Documented by: Losartan Potassium (Cozaar -) 25 mg PO DAILY [facility] Last Admin: 03/29/20 10:13 Dose: 25 mg Documented by: Methylprednisolone (Medrol -) 4 mg PO DAILY [facility] Last Admin: 03/29/20 10:35 Dose: 4 mg Documented by: Metoprolol Tartrate (Lopressor -) 25 mg PO DAILY [facility] Last Admin: 03/29/20 10:14 Dose: 25 mg Documented by: Morphine Sulfate (Morphine Sulfate) 4 mg IVPUSH Q6H PRN PRN Reason: PAIN LEVEL 4-10 Last Admin: 03/30/20 04:42 Dose: 4 mg Documented by: Multivitamins/Minerals/Vitamin C (Tab-A-Vit -) 1 tab PO DAILY [facility] Last Admin: 03/29/20 10:14 Dose: 1 tab Documented by: Ondansetron HCl (Zofran Injection) 4 mg IVPUSH Q6H PRN PRN Reason: NAUSEA AND/OR VOMITING Ondansetron HCl (Zofran Injection) 4 mg IVPUSH Q6H PRN PRN Reason: NAUSEA AND/OR VOMITING Pantoprazole Sodium (Protonix -) 40 mg PO DAILY [facility] Last Admin: 03/29/20 10:13 Dose: 40 mg Documented by: - Objective Vital Signs: Vital Signs Temperature 97.6 F 03/29/20 22:00 Pulse Rate 87 03/29/20 22:00 Respiratory Rate 18 03/29/20 22:00 Blood Pressure 108/80 03/29/20 22:00 O2 Sat by Pulse Oximetry (%) 95 03/29/20 22:00 Constitutional: Yes: Calm, Thin Eyes: Yes: WNL HENT: Yes: WNL Neck: Yes: WNL Cardiovascular: Yes: Regular Rate and Rhythm, S1, S2 Respiratory: Yes: Rales (scattered thai crackles) Gastrointestinal: Yes: Normal Bowel Sounds, Soft Extremities: Yes: Amputation (left bka) Edema: No Problem List - Problems (1) S/P transmetatarsal amputation of foot Code(s): Z89.439 - ACQUIRED ABSENCE OF UNSPECIFIED FOOT (2) Diabetic foot ulcer Code(s): E11.621 - TYPE 2 DIABETES MELLITUS WITH FOOT ULCER; L97.509 - NON- PRESSURE CHRONIC ULCER OTH PRT UNSP FOOT W UNSP SEVERITY (3) Gangrene of toe of left foot Code(s): I96 - GANGRENE, NOT ELSEWHERE CLASSIFIED (4) ILD (interstitial lung disease) Code(s): J84.9 - INTERSTITIAL PULMONARY DISEASE, UNSPECIFIED (5) PVD (peripheral vascular disease) Code(s): I73.9 - PERIPHERAL VASCULAR DISEASE, UNSPECIFIED (6) Painful amputation stump Code(s): T87.89 - OTHER COMPLICATIONS OF AMPUTATION STUMP; M79.609 - PAIN IN UNSPECIFIED LIMB (7) Pneumonia Code(s): J18.9 - PNEUMONIA, UNSPECIFIED ORGANISM Qualifiers: Laterality: left Lung location: lower lobe of lung (8) Shortness of breath Code(s): R06.02 - SHORTNESS OF BREATH (9) Hypertension Code(s): I10 - ESSENTIAL (PRIMARY) HYPERTENSION (10) Recurrent pulmonary embolism Code(s): I26.99 - OTHER PULMONARY EMBOLISM WITHOUT ACUTE COR PULMONALE (11) Type 2 diabetes mellitus Code(s): E11.9 - TYPE 2 DIABETES MELLITUS WITHOUT COMPLICATIONS Assessment/Plan IMP DYSPNEA IMPROVED ILD/BRONCHIECTASIS H/O RECURRENT PE 2014,2017 H/O OPEN HEART SURGERY SECONDARY TP PE ? THROMBECTOMY RLL LUNG NODULE ?LLL INFILTRATE HTN PVD DM HLD CHRONIC OSTEOMYELITIS S/P LEFT BKA ANEMIA PLAN SUPPLEMENTAL O2 INHALED BRONCHODILATORS WOUND CARE MONITOR LYTES,H+H F/U CHEST X-RAYS DR PLASCENCIA Problem List - Problems (1) S/P transmetatarsal amputation of foot Code(s): Z89.439 - ACQUIRED ABSENCE OF UNSPECIFIED FOOT (2) Diabetic foot ulcer Code(s): E11.621 - TYPE 2 DIABETES MELLITUS WITH FOOT ULCER; L97.509 - NON- PRESSURE CHRONIC ULCER OTH PRT UNSP FOOT W UNSP SEVERITY (3) Gangrene of toe of left foot Code(s): I96 - GANGRENE, NOT ELSEWHERE CLASSIFIED (4) ILD (interstitial lung disease) Code(s): J84.9 - INTERSTITIAL PULMONARY DISEASE, UNSPECIFIED (5) PVD (peripheral vascular disease) Code(s): I73.9 - PERIPHERAL VASCULAR DISEASE, UNSPECIFIED (6) Painful amputation stump Code(s): T87.89 - OTHER COMPLICATIONS OF AMPUTATION STUMP; M79.609 - PAIN IN UNSPECIFIED LIMB (7) Pneumonia Code(s): J18.9 - PNEUMONIA, UNSPECIFIED ORGANISM Qualifiers: Laterality: left Lung location: lower lobe of lung (8) Shortness of breath Code(s): R06.02 - SHORTNESS OF BREATH (9) Hypertension Code(s): I10 - ESSENTIAL (PRIMARY) HYPERTENSION (10) Recurrent pulmonary embolism Code(s): I26.99 - OTHER PULMONARY EMBOLISM WITHOUT ACUTE COR PULMONALE (11) Type 2 diabetes mellitus Code(s): E11.9 - TYPE 2 DIABETES MELLITUS WITHOUT COMPLICATIONS
[2020-03-30 08:58] LABS: BASO % 2.5 % (0-2.0); EOS % 4.7 % (0-4.5); HEMATOCRIT 28.7 % (35.4-49); HEMOGLOBIN 9.3 GM/dL (11.7-16.9); LYMPH % 20.4 % (8-40); MCH 27.8 pg (25.7-33.7); MCHC 32.3 g/dl (32.0-35.9); MEAN CELL VOLUME 86.2 fl (80-96); MEAN PLT VOLUME 7.1 fl (7.5-11.1); MONO % 8.5 % (3.8-10.2); NEUT % 63.9 % (42.8-82.8); PLATELET COUNT 830 K/MM3 (134-434); RBC 3.33 M/mm3 (4.00-5.60); RDW 14.5 % (11.9-15.9); WHITE BLOOD COUNT 13.9 K/mm3 (4.0-10.0)
--- NOTE | 2020-03-30 10:41 | PN ---
Progress Note, Physician History of Present Illness: 64-year-old male with past medical history of hypertension hyperlipidemia rheumatoid arthritis GERD JAMES also PE coronary artery disease diabetes with neuropathy admitted for left foot osteomyelitis status post below-knee amputation. PMH Asthma Bronchiectasis Type 2 Diabetes 2000 Esophageal Reflux Hypertension Pulmonary Embolism 2014. treated for 1 year Recurrent pulmonary emboli s/p embolectomy Feb 2018 Rheumatoid Arthritis Spondylosis Hyperlipidemia - Current Medication List Current Medications: Active Medications Acetaminophen (Tylenol -) 325 mg PO Q4H PRN PRN Reason: FEVER Last Admin: 03/26/20 08:42 Dose: 325 mg Documented by: Albuterol Sulfate (Ventolin Hfa Inhaler -) 2 puff IH Q4H PRN PRN Reason: SHORTNESS OF BREATH Amino Acids (Prosource No Carb Liquid Pkt) 30 ml PO BID@0800,1730 [facility] Last Admin: 03/29/20 16:39 Dose: 30 ml Documented by: Apixaban (Eliquis -) 5 mg PO BID [facility] Last Admin: 03/29/20 21:26 Dose: 5 mg Documented by: Atorvastatin Calcium (Lipitor -) 20 mg PO HS [facility] Last Admin: 03/29/20 21:26 Dose: 20 mg Documented by: Budesonide/Formoterol Fumarate (Symbicort 160/4.5mcg -) 2 puff IH BID [facility] Last Admin: 03/29/20 21:25 Dose: 2 puff Documented by: Calcium Carbonate (Os-Scott 500mg -) 500 mg PO DAILY [facility] Last Admin: 03/29/20 10:13 Dose: 500 mg Documented by: Docusate Sodium (Colace -) 100 mg PO TID [facility] Last Admin: 03/30/20 06:35 Dose: 100 mg Documented by: Fentanyl (Sublimaze Injection -) 50 mcg IVPUSH [id number] PRN PRN Reason: PAIN-PACU ORDER X 4 DOSES ONLY Ferrous Sulfate (Feosol -) 325 mg PO BIDWM [facility] Last Admin: 03/29/20 16:38 Dose: 325 mg Documented by: Folic Acid (Folic Acid -) 1 mg PO DAILY [facility] Last Admin: 03/29/20 10:13 Dose: 1 mg Documented by: Insulin Aspart (Novolog Vial Sliding Scale -) 1 vial SQ [facility]; Protocol Last Admin: 03/30/20 06:36 Dose: Not Given Documented by: Insulin Detemir (Levemir Vial) 10 units SQ BID@0700,2200 [facility] Last Admin: 03/30/20 06:35 Dose: 10 units Documented by: Leflunomide (Arava -) 10 mg PO DAILY [facility] Last Admin: 03/29/20 10:35 Dose: 10 mg Documented by: Loratadine (Claritin -) 10 mg PO DAILY [facility] Last Admin: 03/29/20 10:14 Dose: 10 mg Documented by: Losartan Potassium (Cozaar -) 25 mg PO DAILY [facility] Last Admin: 03/29/20 10:13 Dose: 25 mg Documented by: Methylprednisolone (Medrol -) 4 mg PO DAILY [facility] Last Admin: 03/29/20 10:35 Dose: 4 mg Documented by: Metoprolol Tartrate (Lopressor -) 25 mg PO DAILY [facility] Last Admin: 03/29/20 10:14 Dose: 25 mg Documented by: Morphine Sulfate (Morphine Sulfate) 4 mg IVPUSH Q6H PRN PRN Reason: PAIN LEVEL 4-10 Last Admin: 03/30/20 04:42 Dose: 4 mg Documented by: Multivitamins/Minerals/Vitamin C (Tab-A-Vit -) 1 tab PO DAILY [facility] Last Admin: 03/29/20 10:14 Dose: 1 tab Documented by: Ondansetron HCl (Zofran Injection) 4 mg IVPUSH Q6H PRN PRN Reason: NAUSEA AND/OR VOMITING Ondansetron HCl (Zofran Injection) 4 mg IVPUSH Q6H PRN PRN Reason: NAUSEA AND/OR VOMITING Pantoprazole Sodium (Protonix -) 40 mg PO DAILY [facility] Last Admin: 03/29/20 10:13 Dose: 40 mg Documented by: - Objective Vital Signs: Vital Signs Temperature 98.5 F 03/30/20 06:00 Pulse Rate 84 03/30/20 06:00 Respiratory Rate 18 03/30/20 06:00 Blood Pressure 129/69 03/30/20 06:00 O2 Sat by Pulse Oximetry (%) 95 03/29/20 22:00 Eyes: Yes: WNL, Conjunctiva Clear, EOM Intact HENT: Yes: WNL, Atraumatic, Normocephalic Neck: Yes: WNL, Supple, Trachea Midline Cardiovascular: Yes: WNL, Regular Rate and Rhythm Respiratory: Yes: WNL, Regular, CTA Bilaterally Gastrointestinal: Yes: WNL, Normal Bowel Sounds Genitourinary: Yes: WNL Musculoskeletal: Yes: WNL Extremities: Yes: Amputation Edema: No Integumentary: Yes: WNL Neurological: Yes: WNL, Alert, Oriented ...Motor Strength: WNL Psychiatric: Yes: WNL Labs: CBC, BMP 03/30/20 08:30 03/29/20 07:53 Problem List - Problems (1) S/P transmetatarsal amputation of foot Code(s): Z89.439 - ACQUIRED ABSENCE OF UNSPECIFIED FOOT (2) Cellulitis of left foot Code(s): L03.116 - CELLULITIS OF LEFT LOWER LIMB (3) Diabetic foot ulcer Code(s): E11.621 - TYPE 2 DIABETES MELLITUS WITH FOOT ULCER; L97.509 - NON- PRESSURE CHRONIC ULCER OTH PRT UNSP FOOT W UNSP SEVERITY (4) Gangrene of toe of left foot Code(s): I96 - GANGRENE, NOT ELSEWHERE CLASSIFIED (5) ILD (interstitial lung disease) Code(s): J84.9 - INTERSTITIAL PULMONARY DISEASE, UNSPECIFIED (6) PVD (peripheral vascular disease) Code(s): I73.9 - PERIPHERAL VASCULAR DISEASE, UNSPECIFIED (7) Painful amputation stump Code(s): T87.89 - OTHER COMPLICATIONS OF AMPUTATION STUMP; M79.609 - PAIN IN UNSPECIFIED LIMB (8) Pneumonia Code(s): J18.9 - PNEUMONIA, UNSPECIFIED ORGANISM Qualifiers: Laterality: left Lung location: lower lobe of lung (9) Sepsis due to cellulitis Code(s): L03.90 - CELLULITIS, UNSPECIFIED; A41.9 - SEPSIS, UNSPECIFIED ORGANISM (10) Shortness of breath Code(s): R06.02 - SHORTNESS OF BREATH (11) Status post amputation of left great toe Code(s): Z89.412 - ACQUIRED ABSENCE OF LEFT GREAT TOE (12) Toe pain Code(s): M79.676 - PAIN IN UNSPECIFIED TOE(S) (13) Hypercholesterolemia Code(s): E78.00 - PURE HYPERCHOLESTEROLEMIA, UNSPECIFIED (14) Hypertension Code(s): I10 - ESSENTIAL (PRIMARY) HYPERTENSION (15) Recurrent pulmonary embolism Code(s): I26.99 - OTHER PULMONARY EMBOLISM WITHOUT ACUTE COR PULMONALE (16) Rheumatoid arthritis Code(s): M06.9 - RHEUMATOID ARTHRITIS, UNSPECIFIED (17) Type 2 diabetes mellitus Code(s): E11.9 - TYPE 2 DIABETES MELLITUS WITHOUT COMPLICATIONS (18) Venous insufficiency Code(s): I87.2 - VENOUS INSUFFICIENCY (CHRONIC) (PERIPHERAL) Assessment/Plan 64-year-old male with past medical history of hypertension hyperlipidemia rheumatoid arthritis GERD JAMES also PE coronary artery disease diabetes with neuropathy admitted for left foot osteomyelitis status post below-knee amputation. Cardiac castro stable Cont AC
[2020-03-30] MEDS: AMINO ACIDS/PROTEIN HYDROLYS 30 ML LIQUID.PKT PO SCH ×2 (11:04→18:23)
[2020-03-30] MEDS: methylPREDNISolone 4 MG TABLET PO SCH (11:04)
[2020-03-30] MEDS: LEFLUNOMIDE 10 MG TABLET PO SCH (11:04)
[2020-03-30] MEDS: FERROUS SO4 325 MG TABLET (FP) PO SCH ×2 (11:04→18:23)
[2020-03-30] MEDS: APIXABAN 5 MG TABLET PO SCH ×2 (11:06→21:33)
[2020-03-30] MEDS: FOLIC ACID 1 MG TABLET (FP) PO SCH (11:06)
[2020-03-30] MEDS: METOPROLOL TARTRATE 25 MG TABLET (FP) PO SCH (11:06)
[2020-03-30] MEDS: LOSARTAN POTASSIUM 25 MG TABLET PO SCH (11:06)
[2020-03-30] MEDS: MULTIVITAMINS (DAILY MVI) TABLET (FP) PO SCH (11:07)
[2020-03-30] MEDS: LORATADINE 10 MG TABLET PO SCH (11:07)
[2020-03-30] MEDS: CALCIUM (OYSTER SHELL) 500 MG TABLET (FP) PO SCH (11:07)
[2020-03-30] MEDS: PANTOPRAZOLE 20 MG TABLET PO SCH (11:07)
[2020-03-30] MEDS: BUDESONIDE/FORMETEROL FUMARATE 160/4.5 mcg INHALER IH SCH ×2 (11:07→21:33)
--- NOTE | 2020-03-30 11:38 | PN ---
Progress Note, Physician History of Present Illness: stable improving - Current Medication List Current Medications: Active Medications Acetaminophen (Tylenol -) 325 mg PO Q4H PRN PRN Reason: FEVER Last Admin: 03/26/20 08:42 Dose: 325 mg Documented by: Albuterol Sulfate (Ventolin Hfa Inhaler -) 2 puff IH Q4H PRN PRN Reason: SHORTNESS OF BREATH Amino Acids (Prosource No Carb Liquid Pkt) 30 ml PO BID@0800,1730 [facility] Last Admin: 03/30/20 11:04 Dose: 30 ml Documented by: Apixaban (Eliquis -) 5 mg PO BID [facility] Last Admin: 03/30/20 11:06 Dose: 5 mg Documented by: Atorvastatin Calcium (Lipitor -) 20 mg PO [facility] Last Admin: 03/29/20 21:26 Dose: 20 mg Documented by: Budesonide/Formoterol Fumarate (Symbicort 160/4.5mcg -) 2 puff IH BID [facility] Last Admin: 03/30/20 11:07 Dose: 2 puff Documented by: Calcium Carbonate (Os-Scott 500mg -) 500 mg PO DAILY [facility] Last Admin: 03/30/20 11:07 Dose: 500 mg Documented by: Docusate Sodium (Colace -) 100 mg PO TID [facility] Last Admin: 03/30/20 06:35 Dose: 100 mg Documented by: Fentanyl (Sublimaze Injection -) 50 mcg IVPUSH [id number] PRN PRN Reason: PAIN-PACU ORDER X 4 DOSES ONLY Ferrous Sulfate (Feosol -) 325 mg PO BIDWM [facility] Last Admin: 03/30/20 11:04 Dose: 325 mg Documented by: Folic Acid (Folic Acid -) 1 mg PO DAILY [facility] Last Admin: 03/30/20 11:06 Dose: 1 mg Documented by: Insulin Aspart (Novolog Vial Sliding Scale -) 1 vial SQ ACHS [facility]; Protocol Last Admin: 03/30/20 06:36 Dose: Not Given Documented by: Insulin Detemir (Levemir Vial) 10 units SQ BID@0700,2200 [facility] Last Admin: 03/30/20 06:35 Dose: 10 units Documented by: Leflunomide (Arava -) 10 mg PO DAILY [facility] Last Admin: 03/30/20 11:04 Dose: 10 mg Documented by: Loratadine (Claritin -) 10 mg PO DAILY [facility] Last Admin: 03/30/20 11:07 Dose: 10 mg Documented by: Losartan Potassium (Cozaar -) 25 mg PO DAILY [facility] Last Admin: 03/30/20 11:06 Dose: 25 mg Documented by: Methylprednisolone (Medrol -) 4 mg PO DAILY [facility] Last Admin: 03/30/20 11:04 Dose: 4 mg Documented by: Metoprolol Tartrate (Lopressor -) 25 mg PO DAILY [facility] Last Admin: 03/30/20 11:06 Dose: 25 mg Documented by: Morphine Sulfate (Morphine Sulfate) 4 mg IVPUSH Q6H PRN PRN Reason: PAIN LEVEL 4-10 Last Admin: 03/30/20 04:42 Dose: 4 mg Documented by: Multivitamins/Minerals/Vitamin C (Tab-A-Vit -) 1 tab PO DAILY [facility] Last Admin: 03/30/20 11:07 Dose: 1 tab Documented by: Ondansetron HCl (Zofran Injection) 4 mg IVPUSH Q6H PRN PRN Reason: NAUSEA AND/OR VOMITING Ondansetron HCl (Zofran Injection) 4 mg IVPUSH Q6H PRN PRN Reason: NAUSEA AND/OR VOMITING Pantoprazole Sodium (Protonix -) 40 mg PO DAILY [facility] Last Admin: 03/30/20 11:07 Dose: 40 mg Documented by: - Objective Vital Signs: Vital Signs Temperature 98.5 F 03/30/20 06:00 Pulse Rate 84 03/30/20 06:00 Respiratory Rate 18 03/30/20 06:00 Blood Pressure 129/69 03/30/20 06:00 O2 Sat by Pulse Oximetry (%) 95 03/29/20 22:00 Constitutional: Yes: No Distress, Calm Cardiovascular: Yes: S1, S2 Respiratory: Yes: Regular, CTA Bilaterally Gastrointestinal: Yes: Normal Bowel Sounds, Soft Musculoskeletal: Yes: WNL Extremities: Yes: WNL Neurological: Yes: Alert, Oriented Psychiatric: Yes: Alert, Oriented Labs: CBC, BMP 03/30/20 08:30 03/29/20 07:53 Assessment/Plan 64 y.o. M w/ PMHx. of HTN, DM, PVD, RA, GERD, Iron Deficiency Anemia and Hx. of PE presented with L. foot gangrene. Pt. is s/p L. TMA L. foot TMA htn pna dm gerd h/o of pe plan continue abx wound care monitor wbc rest as per the team
[2020-03-30 11:54] LABS: ANISOCYTOSIS 1+; MACROCYTOSIS 0; OVALOCYTE 1+; PLATELET ESTIMATE INCREASED; TEAR DROP CELLS 1+
[2020-03-30] MEDS ORDERED: DEXTROSE 5%-WATER - 50 ML IVPB ONE ×2 (12:43→18:16)
[2020-03-30] MEDS ORDERED: PIPERACILLIN/TAZOBACTAM 3.375 GM VIAL IVPB ONE ×2 (12:43→18:16)
--- NOTE | 2020-03-30 14:23 | PN ---
Physical Exam: SUBJECTIVE: Patient seen and examined at bedside, Arsh DIAZ, needing SNF placement for continued rehab, antibiotics. Denies pain. VSS. OBJECTIVE: GENERAL: Awake, alert, and fully oriented, in no acute distress. HEENT NC/AT, EOMI, dry MM, poor dentition, neck supple LUNGS: CTA B.L; no rales, rhonchi or wheezing HEART: RRR, normal S1 and S2 without murmur, rub or gallop. ABDOMEN: Soft, NT/ND +BS in all 4 quadrants . LOWER EXTREMITIES: L BKA with cast/wound dressing, RLE venous stasis, no RLE edema PSYCHIATRIC: Cooperative. Good eye contact. Appropriate mood and affect. Laboratory Results - last 24 hr 03/29/20 03/29/20 03/30/20 16:36 21:12 06:17 WBC RBC Hgb Hct MCV MCH MCHC RDW Plt Count MPV Absolute Neuts (auto) Neutrophils % Neutrophils % (Manual) Band Neutrophils % Lymphocytes % Lymphocytes % (Manual) Monocytes % Monocytes % (Manual) Eosinophils % Eosinophils % (Manual) Basophils % Basophils % (Manual) Myelocytes % (Man) Promyelocytes % (Man) Blast Cells % (Manual) Nucleated RBC % Metamyelocytes Hypochromia Platelet Estimate Polychromasia Poikilocytosis Anisocytosis Microcytosis Macrocytosis Spherocytes Tear Drop Cells Ovalocytes Jesus Cells POC Glucometer 312 242 138 03/30/20 03/30/20 08:30 12:20 WBC 13.9 H RBC 3.33 L Hgb 9.3 L Hct 28.7 L MCV 86.2 MCH 27.8 MCHC 32.3 RDW 14.5 Plt Count 830 H MPV 7.1 L Absolute Neuts (auto) 8.9 H Neutrophils % 63.9 Neutrophils % (Manual) 46.0 D Band Neutrophils % 4.0 Lymphocytes % 20.4 Lymphocytes % (Manual) 32.0 D Monocytes % 8.5 Monocytes % (Manual) 7 Eosinophils % 4.7 H Eosinophils % (Manual) 8.0 H D Basophils % 2.5 H Basophils % (Manual) 1.0 Myelocytes % (Man) 0 D Promyelocytes % (Man) 0 Blast Cells % (Manual) 0 Nucleated RBC % 0 Metamyelocytes 1 D Hypochromia 0 Platelet Estimate Increased Polychromasia 1+ Poikilocytosis 1+ Anisocytosis 1+ Microcytosis 1+ Macrocytosis 0 Spherocytes 2+ Tear Drop Cells 1+ Ovalocytes 1+ Jesus Cells 1+ POC Glucometer 200 Active Medications Generic Name Dose Route Start Last Admin Trade Name Howardq PRN Reason Stop Dose Admin Acetaminophen 325 mg 03/22/20 11:24 03/26/20 08:42 Tylenol - PO 325 mg Q4H PRN Administration FEVER Albuterol Sulfate 2 puff 03/22/20 11:24 Ventolin Hfa Inhaler - IH Q4H PRN SHORTNESS OF BREATH Amino Acids 30 ml 03/22/20 17:30 03/30/20 11:04 Prosource No Carb Liquid Pkt PO 30 ml BID@0800,1730 [facility] Administration Apixaban 5 mg 03/23/20 22:00 03/30/20 11:06 Eliquis - PO 5 mg BID [facility] Administration Atorvastatin Calcium 20 mg 03/22/20 22:00 03/29/20 21:26 Lipitor - PO 20 mg HS [facility] Administration Budesonide/Formoterol Fumarate 2 puff 03/22/20 22:00 03/30/20 11:07 Symbicort 160/4.5mcg - IH 2 puff BID [facility] Administration Calcium Carbonate 500 mg 03/23/20 10:00 03/30/20 11:07 Os-Scott 500mg - PO 500 mg DAILY [facility] Administration Docusate Sodium 100 mg 03/22/20 14:00 03/30/20 06:35 Colace - PO 100 mg TID [facility] Administration Fentanyl 50 mcg 03/22/20 09:54 Sublimaze Injection - IVPUSH [id number] PRN PAIN-PACU ORDER X 4 DOSES ONLY Ferrous Sulfate 325 mg 03/22/20 17:30 03/30/20 11:04 Feosol - PO 325 mg BIDWM [facility] Administration Folic Acid 1 mg 03/23/20 10:00 03/30/20 11:06 Folic Acid - PO 1 mg DAILY [facility] Administration Piperacillin Sod/Tazobactam 50 mls @ 100 mls/hr 03/30/20 12:15 Sod 3.375 gm/ Dextrose IVPB Q8H-IV [facility] Protocol Insulin Aspart 1 vial 03/22/20 16:30 03/30/20 12:24 Novolog Vial Sliding Scale - SQ 2 units ACHS [facility] Administration Protocol Insulin Detemir 10 units 03/28/20 22:00 03/30/20 06:35 Levemir Vial SQ 10 units BID@0700,2200 [facility] Administration Leflunomide 10 mg 03/23/20 10:00 03/30/20 11:04 Arava - PO 10 mg DAILY [facility] Administration Loratadine 10 mg 03/23/20 10:00 03/30/20 11:07 Claritin - PO 10 mg DAILY [facility] Administration Losartan Potassium 25 mg 03/23/20 10:00 03/30/20 11:06 Cozaar - PO 25 mg DAILY [facility] Administration Methylprednisolone 4 mg 03/23/20 10:00 03/30/20 11:04 Medrol - PO 4 mg DAILY [facility] Administration Metoprolol Tartrate 25 mg 03/23/20 10:00 03/30/20 11:06 Lopressor - PO 25 mg DAILY [facility] Administration Morphine Sulfate 4 mg 03/26/20 18:24 03/30/20 04:42 Morphine Sulfate IVPUSH 4 mg Q6H PRN Administration PAIN LEVEL 4-10 Multivitamins/Minerals/Vitamin C 1 tab 03/23/20 10:00 03/30/20 11:07 Tab-A-Vit - PO 1 tab DAILY [facility] Administration Ondansetron HCl 4 mg 03/22/20 11:24 Zofran Injection IVPUSH Q6H PRN NAUSEA AND/OR VOMITING Pantoprazole Sodium 40 mg 03/23/20 10:00 03/30/20 11:07 Protonix - PO 40 mg DAILY [facility] Administration ASSESSMENT/PLAN: 64 M L foot osteomyelitis s/p L BKA Uncontrolled T2DM w/ diabetic neuropathy Suspected hypercoaguable state HTN HLD Rheumatoid arthritis GERD JAMES H/o PE on Eliquis CAD Plan: Cont. IV Zosyn, pending SNF placement, ID recs for duraton of abx appreciated Steroids DC, resume ICS/LABA Cont. Eliquis Strict glycemic control Replace electrolytes aggressively ID following Podiatry following Surgery following Wound dressing changes SW referral for SNF Visit type - Emergency Visit Emergency Visit: Yes ED Registration Date: 03/15/20 Care time: The patient presented to the Emergency Department on the above date and was hospitalized for further evaluation of their emergent condition. - New Patient This patient is new to me today: Yes Date on this admission: 09/05/20 - Critical Care Critical Care patient: No - Discharge Referral Referred to [facility] Med P.C.: No
[2020-03-30] MEDS: PIPERACILLIN/TAZOB 3.375 GM 3.375 GM in DEXTROSE 5%-WATER - 50 ML IVPB SCH ×2 (15:05→18:26)
[2020-03-30] MEDS ORDERED: PT OWN MED DRAWER 7, Y5N ONE (20:56)
[2020-03-30] MEDS: ATORVASTATIN CA 20 MG TABLET (FP) PO SCH (21:32)
[2020-03-31] MEDS ORDERED: PIPERACILLIN/TAZOBACTAM 3.375 GM VIAL IVPB ONE ×3 (00:20→16:44)
[2020-03-31] MEDS ORDERED: DEXTROSE 5%-WATER - 50 ML IVPB ONE ×3 (00:21→16:44)
[2020-03-31] MEDS: morphine SULFATE 4 MG/ML VIAL IVPUSH PRN ×2 (00:25→06:34)
[2020-03-31] MEDS: PIPERACILLIN/TAZOB 3.375 GM 3.375 GM in DEXTROSE 5%-WATER - 50 ML IVPB SCH ×3 (01:30→17:21)
[2020-03-31] MEDS: INSULIN SLIDING SCALE (NOVOLOG) 1 VIAL SQ SCH ×4 (06:24→21:34)
[2020-03-31] MEDS: INSULIN (LEVEMIR) 100 UNITS/ML UNITS SQ SCH ×2 (06:25→21:28)
[2020-03-31] MEDS: DOCUSATE SODIUM 100 MG CAPSULE (FP) PO SCH ×3 (06:25→21:27)
[2020-03-31] MEDS ORDERED: PT OWN MED DRAWER 7, Y5N ONE ×2 (06:46→09:21)
--- NOTE | 2020-03-31 07:02 | PN ---
Progress Note, Physician History of Present Illness: pulmonary alert,comfortable ,-sob at rest - Current Medication List Current Medications: Active Medications Acetaminophen (Tylenol -) 325 mg PO Q4H PRN PRN Reason: FEVER Last Admin: 03/26/20 08:42 Dose: 325 mg Documented by: Albuterol Sulfate (Ventolin Hfa Inhaler -) 2 puff IH Q4H PRN PRN Reason: SHORTNESS OF BREATH Amino Acids (Prosource No Carb Liquid Pkt) 30 ml PO BID@0800,1730 [facility] Last Admin: 03/30/20 18:23 Dose: 30 ml Documented by: Apixaban (Eliquis -) 5 mg PO BID [facility] Last Admin: 03/30/20 21:33 Dose: 5 mg Documented by: Atorvastatin Calcium (Lipitor -) 20 mg PO HS [facility] Last Admin: 03/30/20 21:32 Dose: 20 mg Documented by: Budesonide/Formoterol Fumarate (Symbicort 160/4.5mcg -) 2 puff IH BID [facility] Last Admin: 03/30/20 21:33 Dose: 2 puff Documented by: Calcium Carbonate (Os-Scott 500mg -) 500 mg PO DAILY [facility] Last Admin: 03/30/20 11:07 Dose: 500 mg Documented by: Docusate Sodium (Colace -) 100 mg PO TID [facility] Last Admin: 03/31/20 06:25 Dose: 100 mg Documented by: Fentanyl (Sublimaze Injection -) 50 mcg IVPUSH [id number] PRN PRN Reason: PAIN-PACU ORDER X 4 DOSES ONLY Ferrous Sulfate (Feosol -) 325 mg PO BIDWM [facility] Last Admin: 03/30/20 18:23 Dose: 325 mg Documented by: Folic Acid (Folic Acid -) 1 mg PO DAILY [facility] Last Admin: 03/30/20 11:06 Dose: 1 mg Documented by: Piperacillin Sod/Tazobactam (Sod 3.375 gm/ Dextrose) 50 mls @ 100 mls/hr IVPB Q8H-IV [facility]; Protocol Last Admin: 03/31/20 01:30 Dose: 100 mls/hr Documented by: Insulin Aspart (Novolog Vial Sliding Scale -) 1 vial SQ ACHS [facility]; Protocol Last Admin: 03/31/20 06:24 Dose: Not Given Documented by: Insulin Detemir (Levemir Vial) 10 units SQ BID@0700,2200 [facility] Last Admin: 03/31/20 06:25 Dose: 10 units Documented by: Leflunomide (Arava -) 10 mg PO DAILY [facility] Last Admin: 03/30/20 11:04 Dose: 10 mg Documented by: Loratadine (Claritin -) 10 mg PO DAILY [facility] Last Admin: 03/30/20 11:07 Dose: 10 mg Documented by: Losartan Potassium (Cozaar -) 25 mg PO DAILY [facility] Last Admin: 03/30/20 11:06 Dose: 25 mg Documented by: Methylprednisolone (Medrol -) 4 mg PO DAILY [facility] Last Admin: 03/30/20 11:04 Dose: 4 mg Documented by: Metoprolol Tartrate (Lopressor -) 25 mg PO DAILY [facility] Last Admin: 03/30/20 11:06 Dose: 25 mg Documented by: Morphine Sulfate (Morphine Sulfate) 4 mg IVPUSH Q6H PRN PRN Reason: PAIN LEVEL 4-10 Last Admin: 03/31/20 06:34 Dose: 4 mg Documented by: Multivitamins/Minerals/Vitamin C (Tab-A-Vit -) 1 tab PO DAILY [facility] Last Admin: 03/30/20 11:07 Dose: 1 tab Documented by: Ondansetron HCl (Zofran Injection) 4 mg IVPUSH Q6H PRN PRN Reason: NAUSEA AND/OR VOMITING Pantoprazole Sodium (Protonix -) 40 mg PO DAILY [facility] Last Admin: 03/30/20 11:07 Dose: 40 mg Documented by: - Objective Vital Signs: Vital Signs Temperature 98.2 F 03/31/20 02:00 Pulse Rate 85 03/31/20 02:00 Respiratory Rate 18 03/31/20 02:00 Blood Pressure 111/67 03/31/20 02:00 O2 Sat by Pulse Oximetry (%) 98 03/31/20 02:00 Constitutional: Yes: Calm, Thin Eyes: Yes: WNL HENT: Yes: WNL Neck: Yes: WNL Cardiovascular: Yes: Regular Rate and Rhythm, S1, S2 Respiratory: Yes: On Nasal O2 (thai crackles and rhonchi), Rales, Rhonchi Gastrointestinal: Yes: Normal Bowel Sounds, Soft Extremities: Yes: Amputation (left bka) Labs: CBC, BMP 03/30/20 08:30 03/29/20 07:53 Problem List - Problems (1) S/P transmetatarsal amputation of foot Code(s): Z89.439 - ACQUIRED ABSENCE OF UNSPECIFIED FOOT (2) Diabetic foot ulcer Code(s): E11.621 - TYPE 2 DIABETES MELLITUS WITH FOOT ULCER; L97.509 - NON- PRESSURE CHRONIC ULCER OTH PRT UNSP FOOT W UNSP SEVERITY (3) Gangrene of toe of left foot Code(s): I96 - GANGRENE, NOT ELSEWHERE CLASSIFIED (4) ILD (interstitial lung disease) Code(s): J84.9 - INTERSTITIAL PULMONARY DISEASE, UNSPECIFIED (5) PVD (peripheral vascular disease) Code(s): I73.9 - PERIPHERAL VASCULAR DISEASE, UNSPECIFIED (6) Painful amputation stump Code(s): T87.89 - OTHER COMPLICATIONS OF AMPUTATION STUMP; M79.609 - PAIN IN UNSPECIFIED LIMB (7) Pneumonia Code(s): J18.9 - PNEUMONIA, UNSPECIFIED ORGANISM Qualifiers: Laterality: left Lung location: lower lobe of lung (8) Shortness of breath Code(s): R06.02 - SHORTNESS OF BREATH (9) Hypertension Code(s): I10 - ESSENTIAL (PRIMARY) HYPERTENSION (10) Recurrent pulmonary embolism Code(s): I26.99 - OTHER PULMONARY EMBOLISM WITHOUT ACUTE COR PULMONALE (11) Type 2 diabetes mellitus Code(s): E11.9 - TYPE 2 DIABETES MELLITUS WITHOUT COMPLICATIONS Assessment/Plan IMP DYSPNEA IMPROVED ILD/BRONCHIECTASIS H/O RECURRENT PE 2014,2017 H/O OPEN HEART SURGERY SECONDARY TP PE ? THROMBECTOMY RLL LUNG NODULE ?LLL INFILTRATE HTN PVD DM HLD CHRONIC OSTEOMYELITIS S/P LEFT BKA ANEMIA PLAN SUPPLEMENTAL O2 INHALED BRONCHODILATORS WOUND CARE MONITOR LYTES,H+H F/U CHEST X-RAYS DR PLASCENCIA Problem List - Problems (1) S/P transmetatarsal amputation of foot Code(s): Z89.439 - ACQUIRED ABSENCE OF UNSPECIFIED FOOT (2) Diabetic foot ulcer Code(s): E11.621 - TYPE 2 DIABETES MELLITUS WITH FOOT ULCER; L97.509 - NON- PRESSURE CHRONIC ULCER OTH PRT UNSP FOOT W UNSP SEVERITY (3) Gangrene of toe of left foot Code(s): I96 - GANGRENE, NOT ELSEWHERE CLASSIFIED (4) ILD (interstitial lung disease) Code(s): J84.9 - INTERSTITIAL PULMONARY DISEASE, UNSPECIFIED (5) PVD (peripheral vascular disease) Code(s): I73.9 - PERIPHERAL VASCULAR DISEASE, UNSPECIFIED (6) Painful amputation stump Code(s): T87.89 - OTHER COMPLICATIONS OF AMPUTATION STUMP; M79.609 - PAIN IN UNSPECIFIED LIMB (7) Pneumonia Code(s): J18.9 - PNEUMONIA, UNSPECIFIED ORGANISM Qualifiers: Laterality: left Lung location: lower lobe of lung (8) Shortness of breath Code(s): R06.02 - SHORTNESS OF BREATH (9) Hypertension Code(s): I10 - ESSENTIAL (PRIMARY) HYPERTENSION (10) Recurrent pulmonary embolism Code(s): I26.99 - OTHER PULMONARY EMBOLISM WITHOUT ACUTE COR PULMONALE (11) Type 2 diabetes mellitus Code(s): E11.9 - TYPE 2 DIABETES MELLITUS WITHOUT COMPLICATIONS
[2020-03-31 07:57] LABS: BASO % 2.2 % (0-2.0); HEMATOCRIT 29.1 % (35.4-49); HEMOGLOBIN 9.5 GM/dL (11.7-16.9); LYMPH % 19.8 % (8-40); MCH 28.2 pg (25.7-33.7); MCHC 32.8 g/dl (32.0-35.9); MEAN CELL VOLUME 86.1 fl (80-96); MEAN PLT VOLUME 7.4 fl (7.5-11.1); MONO % 8.3 % (3.8-10.2); NEUT % 65.7 % (42.8-82.8); PLATELET COUNT 772 K/MM3 (134-434); RBC 3.38 M/mm3 (4.00-5.60); RDW 14.9 % (11.9-15.9); WHITE BLOOD COUNT 12.7 K/mm3 (4.0-10.0)
[2020-03-31 08:29] LABS: ALBUMIN 2.3 g/dl (3.4-5.0); BILIRUBIN,TOTAL 0.4 mg/dL (0.2-1); BLOOD UREA NITROGEN 13.4 mg/dL (7-18); CALCIUM 8.8 mg/dL (8.5-10.1); CREATININE 0.7 mg/dL (0.55-1.3); POTASSIUM 4.2 mmol/L (3.5-5.1); TOT PROT 6.4 g/dl (6.4-8.2)
--- NOTE | 2020-03-31 08:47 | PN ---
Progress Note, Physician History of Present Illness: 64-year-old male with past medical history of hypertension hyperlipidemia rheumatoid arthritis GERD JAMES also PE coronary artery disease diabetes with neuropathy admitted for left foot osteomyelitis status post below-knee amputation. PMH Asthma Bronchiectasis Type 2 Diabetes 2000 Esophageal Reflux Hypertension Pulmonary Embolism 2014. treated for 1 year Recurrent pulmonary emboli s/p embolectomy Feb 2018 Rheumatoid Arthritis Spondylosis Hyperlipidemia - Current Medication List Current Medications: Active Medications Acetaminophen (Tylenol -) 325 mg PO Q4H PRN PRN Reason: FEVER Last Admin: 03/26/20 08:42 Dose: 325 mg Documented by: Albuterol Sulfate (Ventolin Hfa Inhaler -) 2 puff IH Q4H PRN PRN Reason: SHORTNESS OF BREATH Amino Acids (Prosource No Carb Liquid Pkt) 30 ml PO BID@0800,1730 [facility] Last Admin: 03/30/20 18:23 Dose: 30 ml Documented by: Apixaban (Eliquis -) 5 mg PO BID [facility] Last Admin: 03/30/20 21:33 Dose: 5 mg Documented by: Atorvastatin Calcium (Lipitor -) 20 mg PO HS [facility] Last Admin: 03/30/20 21:32 Dose: 20 mg Documented by: Budesonide/Formoterol Fumarate (Symbicort 160/4.5mcg -) 2 puff IH BID [facility] Last Admin: 03/30/20 21:33 Dose: 2 puff Documented by: Calcium Carbonate (Os-Scott 500mg -) 500 mg PO DAILY [facility] Last Admin: 03/30/20 11:07 Dose: 500 mg Documented by: Docusate Sodium (Colace -) 100 mg PO TID [facility] Last Admin: 03/31/20 06:25 Dose: 100 mg Documented by: Fentanyl (Sublimaze Injection -) 50 mcg IVPUSH [id number] PRN PRN Reason: PAIN-PACU ORDER X 4 DOSES ONLY Ferrous Sulfate (Feosol -) 325 mg PO BIDWM [facility] Last Admin: 03/30/20 18:23 Dose: 325 mg Documented by: Folic Acid (Folic Acid -) 1 mg PO DAILY [facility] Last Admin: 03/30/20 11:06 Dose: 1 mg Documented by: Piperacillin Sod/Tazobactam (Sod 3.375 gm/ Dextrose) 50 mls @ 100 mls/hr IVPB Q8H-IV [facility]; Protocol Last Admin: 03/31/20 01:30 Dose: 100 mls/hr Documented by: Insulin Aspart (Novolog Vial Sliding Scale -) 1 vial SQ ACHS [facility]; Protocol Last Admin: 03/31/20 06:24 Dose: Not Given Documented by: Insulin Detemir (Levemir Vial) 10 units SQ BID@0700,2200 [facility] Last Admin: 03/31/20 06:25 Dose: 10 units Documented by: Leflunomide (Arava -) 10 mg PO DAILY [facility] Last Admin: 03/30/20 11:04 Dose: 10 mg Documented by: Loratadine (Claritin -) 10 mg PO DAILY [facility] Last Admin: 03/30/20 11:07 Dose: 10 mg Documented by: Losartan Potassium (Cozaar -) 25 mg PO DAILY [facility] Last Admin: 03/30/20 11:06 Dose: 25 mg Documented by: Methylprednisolone (Medrol -) 4 mg PO DAILY [facility] Last Admin: 03/30/20 11:04 Dose: 4 mg Documented by: Metoprolol Tartrate (Lopressor -) 25 mg PO DAILY [facility] Last Admin: 03/30/20 11:06 Dose: 25 mg Documented by: Multivitamins/Minerals/Vitamin C (Tab-A-Vit -) 1 tab PO DAILY [facility] Last Admin: 03/30/20 11:07 Dose: 1 tab Documented by: Ondansetron HCl (Zofran Injection) 4 mg IVPUSH Q6H PRN PRN Reason: NAUSEA AND/OR VOMITING Pantoprazole Sodium (Protonix -) 40 mg PO DAILY [facility] Last Admin: 03/30/20 11:07 Dose: 40 mg Documented by: - Objective Vital Signs: Vital Signs Temperature 98.2 F 03/31/20 02:00 Pulse Rate 85 03/31/20 02:00 Respiratory Rate 18 03/31/20 02:00 Blood Pressure 111/67 03/31/20 02:00 O2 Sat by Pulse Oximetry (%) 98 03/31/20 02:00 Eyes: Yes: WNL, Conjunctiva Clear, EOM Intact HENT: Yes: WNL, Atraumatic, Normocephalic Neck: Yes: WNL, Supple, Trachea Midline Cardiovascular: Yes: WNL, Regular Rate and Rhythm Respiratory: Yes: WNL, Regular, CTA Bilaterally Gastrointestinal: Yes: WNL, Normal Bowel Sounds Genitourinary: Yes: WNL Musculoskeletal: Yes: WNL Extremities: Yes: Amputation Edema: No Integumentary: Yes: WNL Neurological: Yes: WNL, Alert, Oriented ...Motor Strength: WNL Psychiatric: Yes: WNL Labs: CBC, BMP 03/31/20 07:31 03/31/20 07:31 Problem List - Problems (1) S/P transmetatarsal amputation of foot Code(s): Z89.439 - ACQUIRED ABSENCE OF UNSPECIFIED FOOT (2) Cellulitis of left foot Code(s): L03.116 - CELLULITIS OF LEFT LOWER LIMB (3) Diabetic foot ulcer Code(s): E11.621 - TYPE 2 DIABETES MELLITUS WITH FOOT ULCER; L97.509 - NON- PRESSURE CHRONIC ULCER OTH PRT UNSP FOOT W UNSP SEVERITY (4) Gangrene of toe of left foot Code(s): I96 - GANGRENE, NOT ELSEWHERE CLASSIFIED (5) ILD (interstitial lung disease) Code(s): J84.9 - INTERSTITIAL PULMONARY DISEASE, UNSPECIFIED (6) PVD (peripheral vascular disease) Code(s): I73.9 - PERIPHERAL VASCULAR DISEASE, UNSPECIFIED (7) Painful amputation stump Code(s): T87.89 - OTHER COMPLICATIONS OF AMPUTATION STUMP; M79.609 - PAIN IN UNSPECIFIED LIMB (8) Pneumonia Code(s): J18.9 - PNEUMONIA, UNSPECIFIED ORGANISM Qualifiers: Laterality: left Lung location: lower lobe of lung (9) Sepsis due to cellulitis Code(s): L03.90 - CELLULITIS, UNSPECIFIED; A41.9 - SEPSIS, UNSPECIFIED ORGANISM (10) Shortness of breath Code(s): R06.02 - SHORTNESS OF BREATH (11) Status post amputation of left great toe Code(s): Z89.412 - ACQUIRED ABSENCE OF LEFT GREAT TOE (12) Toe pain Code(s): M79.676 - PAIN IN UNSPECIFIED TOE(S) (13) Hypercholesterolemia Code(s): E78.00 - PURE HYPERCHOLESTEROLEMIA, UNSPECIFIED (14) Hypertension Code(s): I10 - ESSENTIAL (PRIMARY) HYPERTENSION (15) Recurrent pulmonary embolism Code(s): I26.99 - OTHER PULMONARY EMBOLISM WITHOUT ACUTE COR PULMONALE (16) Rheumatoid arthritis Code(s): M06.9 - RHEUMATOID ARTHRITIS, UNSPECIFIED (17) Type 2 diabetes mellitus Code(s): E11.9 - TYPE 2 DIABETES MELLITUS WITHOUT COMPLICATIONS (18) Venous insufficiency Code(s): I87.2 - VENOUS INSUFFICIENCY (CHRONIC) (PERIPHERAL) Assessment/Plan 64-year-old male with past medical history of hypertension hyperlipidemia rheumatoid arthritis GERD JAMES also PE coronary artery disease diabetes with neuropathy admitted for left foot osteomyelitis status post below-knee amputation. Cardiac castro stable Cont AC
[2020-03-31] MEDS: AMINO ACIDS/PROTEIN HYDROLYS 30 ML LIQUID.PKT PO SCH ×2 (09:31→16:50)
[2020-03-31] MEDS: FOLIC ACID 1 MG TABLET (FP) PO SCH (09:32)
[2020-03-31] MEDS: APIXABAN 5 MG TABLET PO SCH ×2 (09:32→21:27)
[2020-03-31] MEDS: MULTIVITAMINS (DAILY MVI) TABLET (FP) PO SCH (09:32)
[2020-03-31] MEDS: CALCIUM (OYSTER SHELL) 500 MG TABLET (FP) PO SCH (09:32)
[2020-03-31] MEDS: LORATADINE 10 MG TABLET PO SCH (09:32)
[2020-03-31] MEDS: FERROUS SO4 325 MG TABLET (FP) PO SCH ×2 (09:32→16:51)
[2020-03-31] MEDS: LOSARTAN POTASSIUM 25 MG TABLET PO SCH (09:32)
[2020-03-31] MEDS: METOPROLOL TARTRATE 25 MG TABLET (FP) PO SCH (09:32)
[2020-03-31] MEDS: PANTOPRAZOLE 20 MG TABLET PO SCH (09:33)
[2020-03-31] MEDS: BUDESONIDE/FORMETEROL FUMARATE 160/4.5 mcg INHALER IH SCH ×2 (09:34→21:35)
[2020-03-31] MEDS: methylPREDNISolone 4 MG TABLET PO SCH (09:35)
[2020-03-31] MEDS: LEFLUNOMIDE 10 MG TABLET PO SCH (09:36)
--- NOTE | 2020-03-31 14:52 | PN ---
Physical Exam: SUBJECTIVE: Patient seen and examined at bedside, L BKA, needing SNF placement for continued rehab, antibiotics. Denies significant pain. VSS. OBJECTIVE: GENERAL: Awake, alert, and fully oriented, in no acute distress. HEENT NC/AT, EOMI, dry MM, poor dentition, neck supple LUNGS: CTA B.L; no rales, rhonchi or wheezing HEART: RRR, normal S1 and S2 without murmur, rub or gallop. ABDOMEN: Soft, NT/ND +BS in all 4 quadrants . LOWER EXTREMITIES: L BKA with cast/wound dressing, RLE venous stasis, no RLE edema PSYCHIATRIC: Cooperative. Good eye contact. Appropriate mood and affect. Laboratory Results - last 24 hr 03/30/20 03/30/20 03/31/20 18:28 21:37 06:23 WBC RBC Hgb Hct MCV MCH MCHC RDW Plt Count MPV Absolute Neuts (auto) Neutrophils % Lymphocytes % Monocytes % Eosinophils % Basophils % Nucleated RBC % Sodium Potassium Chloride Carbon Dioxide Anion Gap BUN Creatinine Est GFR (CKD-EPI)AfAm Est GFR (CKD-EPI)NonAf POC Glucometer 374 190 135 Random Glucose Calcium Total Bilirubin AST ALT Alkaline Phosphatase Total Protein Albumin 03/31/20 03/31/20 03/31/20 07:31 07:31 11:14 WBC 12.7 H RBC 3.38 L Hgb 9.5 L Hct 29.1 L MCV 86.1 MCH 28.2 MCHC 32.8 RDW 14.9 Plt Count 772 H MPV 7.4 L Absolute Neuts (auto) 8.4 H Neutrophils % 65.7 Lymphocytes % 19.8 Monocytes % 8.3 Eosinophils % 4.0 Basophils % 2.2 H Nucleated RBC % 0 Sodium 137 Potassium 4.2 Chloride 105 Carbon Dioxide 25 Anion Gap 7 L BUN 13.4 Creatinine 0.7 Est GFR (CKD-EPI)AfAm 117.22 Est GFR (CKD-EPI)NonAf 101.14 POC Glucometer 265 Random Glucose 131 H Calcium 8.8 Total Bilirubin 0.4 AST 13 L ALT 19 Alkaline Phosphatase 87 Total Protein 6.4 Albumin 2.3 L Active Medications Generic Name Dose Route Start Last Admin Trade Name Freq PRN Reason Stop Dose Admin Acetaminophen 325 mg 03/22/20 11:24 03/26/20 08:42 Tylenol - PO 325 mg Q4H PRN Administration FEVER Albuterol Sulfate 2 puff 03/22/20 11:24 Ventolin Hfa Inhaler - IH Q4H PRN SHORTNESS OF BREATH Amino Acids 30 ml 03/22/20 17:30 03/31/20 09:31 Prosource No Carb Liquid Pkt PO 30 ml BID@0800,1730 [facility] Administration Apixaban 5 mg 03/23/20 22:00 03/31/20 09:32 Eliquis - PO 5 mg BID [facility] Administration Atorvastatin Calcium 20 mg 03/22/20 22:00 03/30/20 21:32 Lipitor - PO 20 mg HS [facility] Administration Budesonide/Formoterol Fumarate 2 puff 03/22/20 22:00 03/31/20 09:34 Symbicort 160/4.5mcg - IH 2 puff BID [facility] Administration Calcium Carbonate 500 mg 03/23/20 10:00 03/31/20 09:32 Os-Scott 500mg - PO 500 mg DAILY [facility] Administration Docusate Sodium 100 mg 03/22/20 14:00 03/31/20 14:45 Colace - PO 100 mg TID [facility] Administration Fentanyl 50 mcg 03/22/20 09:54 Sublimaze Injection - IVPUSH [id number] PRN PAIN-PACU ORDER X 4 DOSES ONLY Ferrous Sulfate 325 mg 03/22/20 17:30 03/31/20 09:32 Feosol - PO 325 mg BIDWM [facility] Administration Folic Acid 1 mg 03/23/20 10:00 03/31/20 09:32 Folic Acid - PO 1 mg DAILY [facility] Administration Piperacillin Sod/Tazobactam 50 mls @ 100 mls/hr 03/30/20 12:15 03/31/20 09:33 Sod 3.375 gm/ Dextrose IVPB 100 mls/hr Q8H-IV [facility] Administration Protocol Insulin Aspart 1 vial 03/22/20 16:30 03/31/20 11:16 Novolog Vial Sliding Scale - SQ 6 units ACHS [facility] Administration Protocol Insulin Detemir 10 units 03/28/20 22:00 03/31/20 06:25 Levemir Vial SQ 10 units BID@0700,2200 [facility] Administration Leflunomide 10 mg 03/23/20 10:00 03/31/20 09:36 Arava - PO 10 mg DAILY [facility] Administration Loratadine 10 mg 03/23/20 10:00 03/31/20 09:32 Claritin - PO 10 mg DAILY [facility] Administration Losartan Potassium 25 mg 03/23/20 10:00 03/31/20 09:32 Cozaar - PO 25 mg DAILY [facility] Administration Methylprednisolone 4 mg 03/23/20 10:00 03/31/20 09:35 Medrol - PO 4 mg DAILY [facility] Administration Metoprolol Tartrate 25 mg 03/23/20 10:00 03/31/20 09:32 Lopressor - PO 25 mg DAILY [facility] Administration Multivitamins/Minerals/Vitamin C 1 tab 03/23/20 10:00 03/31/20 09:32 Tab-A-Vit - PO 1 tab DAILY [facility] Administration Ondansetron HCl 4 mg 03/22/20 11:24 Zofran Injection IVPUSH Q6H PRN NAUSEA AND/OR VOMITING Pantoprazole Sodium 40 mg 03/23/20 10:00 03/31/20 09:33 Protonix - PO 40 mg DAILY [facility] Administration ASSESSMENT/PLAN: 64 M L foot osteomyelitis s/p L BKA Uncontrolled T2DM w/ diabetic neuropathy Suspected hypercoaguable state HTN HLD Rheumatoid arthritis GERD JAMES H/o PE on Eliquis CAD Plan: Cont. IV Zosyn, pending SNF placement, ID recs for duraton of abx appreciated Steroids DC, resume ICS/LABA Cont. Eliquis Strict glycemic control Replace electrolytes aggressively ID following Podiatry following Surgery following Wound dressing changes SW referral for SNF Visit type - Emergency Visit Emergency Visit: Yes ED Registration Date: 03/15/20 Care time: The patient presented to the Emergency Department on the above date and was hospitalized for further evaluation of their emergent condition. - New Patient This patient is new to me today: No - Critical Care Critical Care patient: No - Discharge Referral Referred to [facility] No
[2020-03-31] MEDS ORDERED: ACETAMINOPHEN 1000 MG/100 ML VIAL (NON FORMULARY) IVPB ONE (15:15)
[2020-03-31] MEDS: ATORVASTATIN CA 20 MG TABLET (FP) PO SCH (21:27)
[2020-04-01] MEDS ORDERED: PIPERACILLIN/TAZOBACTAM 3.375 GM VIAL IVPB ONE ×3 (00:49→16:42)
[2020-04-01] MEDS ORDERED: DEXTROSE 5%-WATER - 50 ML IVPB ONE ×3 (00:49→16:42)
[2020-04-01] MEDS: PIPERACILLIN/TAZOB 3.375 GM 3.375 GM in DEXTROSE 5%-WATER - 50 ML IVPB SCH ×3 (01:36→18:02)
[2020-04-01] MEDS: DOCUSATE SODIUM 100 MG CAPSULE (FP) PO SCH ×3 (06:00→22:38)
[2020-04-01] MEDS: ACETAMINOPHEN 325 MG TABLET (FP) PO PRN ×2 (06:00→18:12)
[2020-04-01] MEDS: INSULIN (LEVEMIR) 100 UNITS/ML UNITS SQ SCH ×2 (06:25→22:38)
[2020-04-01] MEDS: INSULIN SLIDING SCALE (NOVOLOG) 1 VIAL SQ SCH ×4 (06:30→22:39)
[2020-04-01] MEDS ORDERED: MORPHINE SULFATE 2 MG/ML VIAL IVPUSH ONE ×2 (06:37→22:19)
--- NOTE | 2020-04-01 09:07 | PN ---
Progress Note, Physician History of Present Illness: PULMONARY OMFORTABLE,C/O COUGH,-SOB - Current Medication List Current Medications: Active Medications Acetaminophen (Tylenol -) 325 mg PO Q4H PRN PRN Reason: FEVER Last Admin: 04/01/20 06:00 Dose: 325 mg Documented by: Albuterol Sulfate (Ventolin Hfa Inhaler -) 2 puff IH Q4H PRN PRN Reason: SHORTNESS OF BREATH Amino Acids (Prosource No Carb Liquid Pkt) 30 ml PO BID@0800,1730 [facility] Last Admin: 03/31/20 16:50 Dose: 30 ml Documented by: Apixaban (Eliquis -) 5 mg PO BID [facility] Last Admin: 03/31/20 21:27 Dose: 5 mg Documented by: Atorvastatin Calcium (Lipitor -) 20 mg PO HS [facility] Last Admin: 03/31/20 21:27 Dose: 20 mg Documented by: Budesonide/Formoterol Fumarate (Symbicort 160/4.5mcg -) 2 puff IH BID [facility] Last Admin: 03/31/20 21:35 Dose: 2 puff Documented by: Calcium Carbonate (Os-Scott 500mg -) 500 mg PO DAILY [facility] Last Admin: 03/31/20 09:32 Dose: 500 mg Documented by: Docusate Sodium (Colace -) 100 mg PO TID [facility] Last Admin: 04/01/20 06:00 Dose: 100 mg Documented by: Fentanyl (Sublimaze Injection -) 50 mcg IVPUSH [id number] PRN PRN Reason: PAIN-PACU ORDER X 4 DOSES ONLY Ferrous Sulfate (Feosol -) 325 mg PO BIDWM [facility] Last Admin: 03/31/20 16:51 Dose: 325 mg Documented by: Folic Acid (Folic Acid -) 1 mg PO DAILY [facility] Last Admin: 03/31/20 09:32 Dose: 1 mg Documented by: Piperacillin Sod/Tazobactam (Sod 3.375 gm/ Dextrose) 50 mls @ 100 mls/hr IVPB Q8H-IV [facility]; Protocol Last Admin: 04/01/20 01:36 Dose: 100 mls/hr Documented by: Insulin Aspart (Novolog Vial Sliding Scale -) 1 vial SQ ACHS [facility]; Protocol Last Admin: 04/01/20 06:30 Dose: 2 units Documented by: Insulin Detemir (Levemir Vial) 10 units SQ BID@0700,2200 [facility] Last Admin: 04/01/20 06:25 Dose: 10 units Documented by: Leflunomide (Arava -) 10 mg PO DAILY [facility] Last Admin: 03/31/20 09:36 Dose: 10 mg Documented by: Loratadine (Claritin -) 10 mg PO DAILY [facility] Last Admin: 03/31/20 09:32 Dose: 10 mg Documented by: Losartan Potassium (Cozaar -) 25 mg PO DAILY [facility] Last Admin: 03/31/20 09:32 Dose: 25 mg Documented by: Methylprednisolone (Medrol -) 4 mg PO DAILY [facility] Last Admin: 03/31/20 09:35 Dose: 4 mg Documented by: Metoprolol Tartrate (Lopressor -) 25 mg PO DAILY [facility] Last Admin: 03/31/20 09:32 Dose: 25 mg Documented by: Multivitamins/Minerals/Vitamin C (Tab-A-Vit -) 1 tab PO DAILY [facility] Last Admin: 03/31/20 09:32 Dose: 1 tab Documented by: Ondansetron HCl (Zofran Injection) 4 mg IVPUSH Q6H PRN PRN Reason: NAUSEA AND/OR VOMITING Pantoprazole Sodium (Protonix -) 40 mg PO DAILY [facility] Last Admin: 03/31/20 09:33 Dose: 40 mg Documented by: - Objective Vital Signs: Vital Signs Temperature 97.8 F 04/01/20 05:40 Pulse Rate 96 H 04/01/20 05:40 Respiratory Rate 20 04/01/20 05:40 Blood Pressure 122/74 04/01/20 05:40 O2 Sat by Pulse Oximetry (%) 99 04/01/20 05:40 Constitutional: Yes: Calm, Thin Eyes: Yes: WNL HENT: Yes: WNL Neck: Yes: WNL Cardiovascular: Yes: Regular Rate and Rhythm, S1, S2 Respiratory: Yes: Rales, Rhonchi (SCATTERED CRACKLES,RHONCHI) Gastrointestinal: Yes: Normal Bowel Sounds, Soft Extremities: Yes: Amputation (LEFT BKA) Labs: CBC, BMP 03/31/20 07:31 03/31/20 07:31 Problem List - Problems (1) S/P transmetatarsal amputation of foot Code(s): Z89.439 - ACQUIRED ABSENCE OF UNSPECIFIED FOOT (2) Diabetic foot ulcer Code(s): E11.621 - TYPE 2 DIABETES MELLITUS WITH FOOT ULCER; L97.509 - NON- PRESSURE CHRONIC ULCER OTH PRT UNSP FOOT W UNSP SEVERITY (3) Gangrene of toe of left foot Code(s): I96 - GANGRENE, NOT ELSEWHERE CLASSIFIED (4) ILD (interstitial lung disease) Code(s): J84.9 - INTERSTITIAL PULMONARY DISEASE, UNSPECIFIED (5) PVD (peripheral vascular disease) Code(s): I73.9 - PERIPHERAL VASCULAR DISEASE, UNSPECIFIED (6) Painful amputation stump Code(s): T87.89 - OTHER COMPLICATIONS OF AMPUTATION STUMP; M79.609 - PAIN IN UNSPECIFIED LIMB (7) Pneumonia Code(s): J18.9 - PNEUMONIA, UNSPECIFIED ORGANISM Qualifiers: Laterality: left Lung location: lower lobe of lung (8) Shortness of breath Code(s): R06.02 - SHORTNESS OF BREATH (9) Hypertension Code(s): I10 - ESSENTIAL (PRIMARY) HYPERTENSION (10) Recurrent pulmonary embolism Code(s): I26.99 - OTHER PULMONARY EMBOLISM WITHOUT ACUTE COR PULMONALE (11) Type 2 diabetes mellitus Code(s): E11.9 - TYPE 2 DIABETES MELLITUS WITHOUT COMPLICATIONS Assessment/Plan IMP DYSPNEA IMPROVED ILD/BRONCHIECTASIS H/O RECURRENT PE 2014,2017 H/O OPEN HEART SURGERY SECONDARY TP PE ? THROMBECTOMY RLL LUNG NODULE ?LLL INFILTRATE HTN PVD DM HLD CHRONIC OSTEOMYELITIS S/P LEFT BKA ANEMIA PLAN SUPPLEMENTAL O2 INHALED BRONCHODILATORS WOUND CARE MONITOR LYTES,H+H F/U CHEST X-RAYS DR PLASCENCIA Problem List - Problems (1) S/P transmetatarsal amputation of foot Code(s): Z89.439 - ACQUIRED ABSENCE OF UNSPECIFIED FOOT (2) Diabetic foot ulcer Code(s): E11.621 - TYPE 2 DIABETES MELLITUS WITH FOOT ULCER; L97.509 - NON- PRESSURE CHRONIC ULCER OTH PRT UNSP FOOT W UNSP SEVERITY (3) Gangrene of toe of left foot Code(s): I96 - GANGRENE, NOT ELSEWHERE CLASSIFIED (4) ILD (interstitial lung disease) Code(s): J84.9 - INTERSTITIAL PULMONARY DISEASE, UNSPECIFIED (5) PVD (peripheral vascular disease) Code(s): I73.9 - PERIPHERAL VASCULAR DISEASE, UNSPECIFIED (6) Painful amputation stump Code(s): T87.89 - OTHER COMPLICATIONS OF AMPUTATION STUMP; M79.609 - PAIN IN UNSPECIFIED LIMB (7) Pneumonia Code(s): J18.9 - PNEUMONIA, UNSPECIFIED ORGANISM Qualifiers: Laterality: left Lung location: lower lobe of lung (8) Shortness of breath Code(s): R06.02 - SHORTNESS OF BREATH (9) Hypertension Code(s): I10 - ESSENTIAL (PRIMARY) HYPERTENSION (10) Recurrent pulmonary embolism Code(s): I26.99 - OTHER PULMONARY EMBOLISM WITHOUT ACUTE COR PULMONALE (11) Type 2 diabetes mellitus Code(s): E11.9 - TYPE 2 DIABETES MELLITUS WITHOUT COMPLICATIONS
[2020-04-01] MEDS ORDERED: PT OWN MED DRAWER 7, Y5N ONE (09:34)
--- NOTE | 2020-04-01 09:56 | PN ---
Progress Note, Physician History of Present Illness: 64-year-old male with past medical history of hypertension hyperlipidemia rheumatoid arthritis GERD JAMES also PE coronary artery disease diabetes with neuropathy admitted for left foot osteomyelitis status post below-knee amputation. PMH Asthma Bronchiectasis Type 2 Diabetes 2000 Esophageal Reflux Hypertension Pulmonary Embolism 2014. treated for 1 year Recurrent pulmonary emboli s/p embolectomy Feb 2018 Rheumatoid Arthritis Spondylosis Hyperlipidemia - Current Medication List Current Medications: Active Medications Acetaminophen (Tylenol -) 325 mg PO Q4H PRN PRN Reason: FEVER Last Admin: 04/01/20 06:00 Dose: 325 mg Documented by: Albuterol Sulfate (Ventolin Hfa Inhaler -) 2 puff IH Q4H PRN PRN Reason: SHORTNESS OF BREATH Amino Acids (Prosource No Carb Liquid Pkt) 30 ml PO BID@0800,1730 [facility] Last Admin: 03/31/20 16:50 Dose: 30 ml Documented by: Apixaban (Eliquis -) 5 mg PO BID [facility] Last Admin: 03/31/20 21:27 Dose: 5 mg Documented by: Atorvastatin Calcium (Lipitor -) 20 mg PO HS [facility] Last Admin: 03/31/20 21:27 Dose: 20 mg Documented by: Budesonide/Formoterol Fumarate (Symbicort 160/4.5mcg -) 2 puff IH BID [facility] Last Admin: 03/31/20 21:35 Dose: 2 puff Documented by: Calcium Carbonate (Os-Scott 500mg -) 500 mg PO DAILY [facility] Last Admin: 03/31/20 09:32 Dose: 500 mg Documented by: Docusate Sodium (Colace -) 100 mg PO TID [facility] Last Admin: 04/01/20 06:00 Dose: 100 mg Documented by: Fentanyl (Sublimaze Injection -) 50 mcg IVPUSH [id number] PRN PRN Reason: PAIN-PACU ORDER X 4 DOSES ONLY Ferrous Sulfate (Feosol -) 325 mg PO BIDWM [facility] Last Admin: 03/31/20 16:51 Dose: 325 mg Documented by: Folic Acid (Folic Acid -) 1 mg PO DAILY [facility] Last Admin: 03/31/20 09:32 Dose: 1 mg Documented by: Piperacillin Sod/Tazobactam (Sod 3.375 gm/ Dextrose) 50 mls @ 100 mls/hr IVPB Q8H-IV [facility]; Protocol Last Admin: 04/01/20 01:36 Dose: 100 mls/hr Documented by: Insulin Aspart (Novolog Vial Sliding Scale -) 1 vial SQ ACHS [facility]; Protocol Last Admin: 04/01/20 06:30 Dose: 2 units Documented by: Insulin Detemir (Levemir Vial) 10 units SQ BID@0700,2200 [facility] Last Admin: 04/01/20 06:25 Dose: 10 units Documented by: Leflunomide (Arava -) 10 mg PO DAILY [facility] Last Admin: 03/31/20 09:36 Dose: 10 mg Documented by: Loratadine (Claritin -) 10 mg PO DAILY [facility] Last Admin: 03/31/20 09:32 Dose: 10 mg Documented by: Losartan Potassium (Cozaar -) 25 mg PO DAILY [facility] Last Admin: 03/31/20 09:32 Dose: 25 mg Documented by: Methylprednisolone (Medrol -) 4 mg PO DAILY [facility] Last Admin: 03/31/20 09:35 Dose: 4 mg Documented by: Metoprolol Tartrate (Lopressor -) 25 mg PO DAILY [facility] Last Admin: 03/31/20 09:32 Dose: 25 mg Documented by: Multivitamins/Minerals/Vitamin C (Tab-A-Vit -) 1 tab PO DAILY [facility] Last Admin: 03/31/20 09:32 Dose: 1 tab Documented by: Ondansetron HCl (Zofran Injection) 4 mg IVPUSH Q6H PRN PRN Reason: NAUSEA AND/OR VOMITING Pantoprazole Sodium (Protonix -) 40 mg PO DAILY [facility] Last Admin: 03/31/20 09:33 Dose: 40 mg Documented by: - Objective Vital Signs: Vital Signs Temperature 97.8 F 04/01/20 05:40 Pulse Rate 96 H 04/01/20 05:40 Respiratory Rate 20 04/01/20 05:40 Blood Pressure 122/74 04/01/20 05:40 O2 Sat by Pulse Oximetry (%) 99 04/01/20 05:40 Eyes: Yes: WNL, Conjunctiva Clear, EOM Intact HENT: Yes: WNL, Atraumatic, Normocephalic Neck: Yes: WNL, Supple, Trachea Midline Cardiovascular: Yes: WNL, Regular Rate and Rhythm Respiratory: Yes: WNL, Regular, CTA Bilaterally Gastrointestinal: Yes: WNL, Normal Bowel Sounds Genitourinary: Yes: WNL Musculoskeletal: Yes: WNL Extremities: Yes: Amputation Edema: No Integumentary: Yes: WNL Neurological: Yes: WNL, Alert, Oriented ...Motor Strength: WNL Psychiatric: Yes: WNL Labs: CBC, BMP 03/31/20 07:31 03/31/20 07:31 Problem List - Problems (1) S/P transmetatarsal amputation of foot Code(s): Z89.439 - ACQUIRED ABSENCE OF UNSPECIFIED FOOT (2) Cellulitis of left foot Code(s): L03.116 - CELLULITIS OF LEFT LOWER LIMB (3) Diabetic foot ulcer Code(s): E11.621 - TYPE 2 DIABETES MELLITUS WITH FOOT ULCER; L97.509 - NON- PRESSURE CHRONIC ULCER OTH PRT UNSP FOOT W UNSP SEVERITY (4) Gangrene of toe of left foot Code(s): I96 - GANGRENE, NOT ELSEWHERE CLASSIFIED (5) ILD (interstitial lung disease) Code(s): J84.9 - INTERSTITIAL PULMONARY DISEASE, UNSPECIFIED (6) PVD (peripheral vascular disease) Code(s): I73.9 - PERIPHERAL VASCULAR DISEASE, UNSPECIFIED (7) Painful amputation stump Code(s): T87.89 - OTHER COMPLICATIONS OF AMPUTATION STUMP; M79.609 - PAIN IN UNSPECIFIED LIMB (8) Pneumonia Code(s): J18.9 - PNEUMONIA, UNSPECIFIED ORGANISM Qualifiers: Laterality: left Lung location: lower lobe of lung (9) Sepsis due to cellulitis Code(s): L03.90 - CELLULITIS, UNSPECIFIED; A41.9 - SEPSIS, UNSPECIFIED ORGANISM (10) Shortness of breath Code(s): R06.02 - SHORTNESS OF BREATH (11) Status post amputation of left great toe Code(s): Z89.412 - ACQUIRED ABSENCE OF LEFT GREAT TOE (12) Toe pain Code(s): M79.676 - PAIN IN UNSPECIFIED TOE(S) (13) Hypercholesterolemia Code(s): E78.00 - PURE HYPERCHOLESTEROLEMIA, UNSPECIFIED (14) Hypertension Code(s): I10 - ESSENTIAL (PRIMARY) HYPERTENSION (15) Recurrent pulmonary embolism Code(s): I26.99 - OTHER PULMONARY EMBOLISM WITHOUT ACUTE COR PULMONALE (16) Rheumatoid arthritis Code(s): M06.9 - RHEUMATOID ARTHRITIS, UNSPECIFIED (17) Type 2 diabetes mellitus Code(s): E11.9 - TYPE 2 DIABETES MELLITUS WITHOUT COMPLICATIONS (18) Venous insufficiency Code(s): I87.2 - VENOUS INSUFFICIENCY (CHRONIC) (PERIPHERAL) Assessment/Plan 64-year-old male with past medical history of hypertension hyperlipidemia rheumatoid arthritis GERD JAMES also PE coronary artery disease diabetes with neuropathy admitted for left foot osteomyelitis status post below-knee amputation. Cardiac castro stable Cont AC
[2020-04-01] MEDS: LOSARTAN POTASSIUM 25 MG TABLET PO SCH (09:58)
[2020-04-01] MEDS: AMINO ACIDS/PROTEIN HYDROLYS 30 ML LIQUID.PKT PO SCH ×2 (09:58→17:59)
[2020-04-01] MEDS: APIXABAN 5 MG TABLET PO SCH ×2 (09:58→22:38)
[2020-04-01] MEDS: LORATADINE 10 MG TABLET PO SCH (09:59)
[2020-04-01] MEDS: FOLIC ACID 1 MG TABLET (FP) PO SCH (09:59)
[2020-04-01] MEDS: METOPROLOL TARTRATE 25 MG TABLET (FP) PO SCH (09:59)
[2020-04-01] MEDS: MULTIVITAMINS (DAILY MVI) TABLET (FP) PO SCH (09:59)
[2020-04-01] MEDS: PANTOPRAZOLE 20 MG TABLET PO SCH (09:59)
[2020-04-01] MEDS: CALCIUM (OYSTER SHELL) 500 MG TABLET (FP) PO SCH (09:59)
[2020-04-01] MEDS: FERROUS SO4 325 MG TABLET (FP) PO SCH ×2 (09:59→17:59)
[2020-04-01] MEDS: LEFLUNOMIDE 10 MG TABLET PO SCH (10:00)
[2020-04-01] MEDS: methylPREDNISolone 4 MG TABLET PO SCH (10:00)
[2020-04-01] MEDS: BUDESONIDE/FORMETEROL FUMARATE 160/4.5 mcg INHALER IH SCH ×2 (10:02→22:39)
--- NOTE | 2020-04-01 10:22 | PN ---
Progress Note, Physician History of Present Illness: stable no new issues - Current Medication List Current Medications: Active Medications Acetaminophen (Tylenol -) 325 mg PO Q4H PRN PRN Reason: FEVER Last Admin: 04/01/20 06:00 Dose: 325 mg Documented by: Albuterol Sulfate (Ventolin Hfa Inhaler -) 2 puff IH Q4H PRN PRN Reason: SHORTNESS OF BREATH Amino Acids (Prosource No Carb Liquid Pkt) 30 ml PO BID@0800,1730 [facility] Last Admin: 04/01/20 09:58 Dose: 30 ml Documented by: Apixaban (Eliquis -) 5 mg PO BID [facility] Last Admin: 04/01/20 09:58 Dose: 5 mg Documented by: Atorvastatin Calcium (Lipitor -) 20 mg PO HS [facility] Last Admin: 03/31/20 21:27 Dose: 20 mg Documented by: Budesonide/Formoterol Fumarate (Symbicort 160/4.5mcg -) 2 puff IH BID [facility] Last Admin: 04/01/20 10:02 Dose: 2 puff Documented by: Calcium Carbonate (Os-Scott 500mg -) 500 mg PO DAILY [facility] Last Admin: 04/01/20 09:59 Dose: 500 mg Documented by: Docusate Sodium (Colace -) 100 mg PO TID [facility] Last Admin: 04/01/20 06:00 Dose: 100 mg Documented by: Fentanyl (Sublimaze Injection -) 50 mcg IVPUSH [id number] PRN PRN Reason: PAIN-PACU ORDER X 4 DOSES ONLY Ferrous Sulfate (Feosol -) 325 mg PO BIDWM [facility] Last Admin: 04/01/20 09:59 Dose: 325 mg Documented by: Folic Acid (Folic Acid -) 1 mg PO DAILY [facility] Last Admin: 04/01/20 09:59 Dose: 1 mg Documented by: Piperacillin Sod/Tazobactam (Sod 3.375 gm/ Dextrose) 50 mls @ 100 mls/hr IVPB Q8H-IV [facility]; Protocol Last Admin: 04/01/20 09:58 Dose: 100 mls/hr Documented by: Insulin Aspart (Novolog Vial Sliding Scale -) 1 vial SQ ACHS [facility]; Protocol Last Admin: 04/01/20 06:30 Dose: 2 units Documented by: Insulin Detemir (Levemir Vial) 10 units SQ BID@0700,2200 [facility] Last Admin: 04/01/20 06:25 Dose: 10 units Documented by: Leflunomide (Arava -) 10 mg PO DAILY [facility] Last Admin: 04/01/20 10:00 Dose: 10 mg Documented by: Loratadine (Claritin -) 10 mg PO DAILY [facility] Last Admin: 04/01/20 09:59 Dose: 10 mg Documented by: Losartan Potassium (Cozaar -) 25 mg PO DAILY [facility] Last Admin: 04/01/20 09:58 Dose: 25 mg Documented by: Methylprednisolone (Medrol -) 4 mg PO DAILY [facility] Last Admin: 04/01/20 10:00 Dose: 4 mg Documented by: Metoprolol Tartrate (Lopressor -) 25 mg PO DAILY [facility] Last Admin: 04/01/20 09:59 Dose: 25 mg Documented by: Multivitamins/Minerals/Vitamin C (Tab-A-Vit -) 1 tab PO DAILY [facility] Last Admin: 04/01/20 09:59 Dose: 1 tab Documented by: Ondansetron HCl (Zofran Injection) 4 mg IVPUSH Q6H PRN PRN Reason: NAUSEA AND/OR VOMITING Pantoprazole Sodium (Protonix -) 40 mg PO DAILY [facility] Last Admin: 04/01/20 09:59 Dose: 40 mg Documented by: - Objective Vital Signs: Vital Signs Temperature 97.8 F 04/01/20 05:40 Pulse Rate 96 H 04/01/20 05:40 Respiratory Rate 20 04/01/20 05:40 Blood Pressure 122/74 04/01/20 05:40 O2 Sat by Pulse Oximetry (%) 99 04/01/20 05:40 Constitutional: Yes: No Distress, Calm Cardiovascular: Yes: S1, S2 Respiratory: Yes: Regular, CTA Bilaterally Gastrointestinal: Yes: Normal Bowel Sounds, Soft Musculoskeletal: Yes: WNL Extremities: Yes: WNL Neurological: Yes: Alert, Oriented Psychiatric: Yes: Alert, Oriented Labs: CBC, BMP 03/31/20 07:31 03/31/20 07:31 Assessment/Plan 64 y.o. M w/ PMHx. of HTN, DM, PVD, RA, GERD, Iron Deficiency Anemia and Hx. of PE presented with L. foot gangrene. Pt. is s/p L. TMA L. foot TMA htn pna dm gerd h/o of pe plan continue abx wound care monitor wbc will switch to oral tomorrow
--- NOTE | 2020-04-01 13:20 | PN ---
Teaching Attending Note Name of Resident: Antione Saleem ATTENDING PHYSICIAN STATEMENT I saw and evaluated the patient. I reviewed the resident's note and discussed the case with the resident. I agree with the resident's findings and plan as documented. SUBJECTIVE: Seen and examined at bedside. Patient continues to improve. Tentative plan for discharge to short-term rehab tomorrow, pending facility acceptance. OBJECTIVE Last Vital Signs Temp Pulse Resp BP Pulse Ox 97.8 F 91 H 18 130/68 96 04/01/20 09:00 04/01/20 09:00 04/01/20 09:00 04/01/20 09:00 04/01/20 09:00 PE: Per resident note Labs/Imaging: reviewed ASSESSMENT/PLAN 64-year-old male with past medical history of hypertension, diabetes, PVD, RA, GERD, iron deficiency anemia presents with left foot gangrene. 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 #Left foot TMA and BKA Wound care, podiatry, and ID on board: Appreciate recommendations Continue IV Zosyn, Likely switch to p.o. tomorrow White count improving Currently afebrile #Leukocytosis/thrombocytosis:improving #Hypertension, diabetes, history of multiple PE, ILD, PVD, GERD, RA, JAMES Continue home medications
--- NOTE | 2020-04-01 14:54 | PN ---
Physical Exam: SUBJECTIVE: Patient seen and examined. Pt. denies any acute events overnight. Afebrile and pain well controlled. Per staff analyst site looks clean. Pt. awaiting placement for rehab. Last saw PT on Wednesday. OBJECTIVE: Vital Signs Period Temp Pulse Resp BP Sys/Dawson Pulse Ox Last 24 Hr 97.7 F-98.5 F 76-96 17-20 102-140/68-78 96-99 GENERAL: The patient is awake, alert, and fully oriented, in no acute distress. HEAD: Normal with no signs of trauma. EYES: Sclera anicteric, conjunctiva clear. ENT: Ears normal, nares patent, oropharynx clear without exudates, moist mucous membranes. LUNGS: diffuse crackles bilaterally, no accessory muscle use. HEART: Regular rate and rhythm, S1, S2 without murmur, rub or gallop. ABDOMEN: Soft, nontender, nondistended, normoactive bowel sounds EXTREMITIES: 2+ R. dorsal pedal pulse, warm, no calf tenderness, well-perfused, no edema. LLE bandaged by wound care--> warm nontender in immobilizer NEUROLOGICAL: Normal speech, gait not observed. PSYCH: Normal mood, normal affect. SKIN: Warm, dry, normal turgor Laboratory Results - last 24 hr 03/31/20 03/31/20 04/01/20 16:55 21:33 06:29 POC Glucometer 231 304 155 04/01/20 11:55 POC Glucometer 199 Active Medications Generic Name Dose Route Start Last Admin Trade Name Freq PRN Reason Stop Dose Admin Acetaminophen 325 mg 03/22/20 11:24 04/01/20 06:00 Tylenol - PO 325 mg Q4H PRN Administration FEVER Albuterol Sulfate 2 puff 03/22/20 11:24 Ventolin Hfa Inhaler - IH Q4H PRN SHORTNESS OF BREATH Amino Acids 30 ml 03/22/20 17:30 04/01/20 09:58 Prosource No Carb Liquid Pkt PO 30 ml BID@0800,1730 [facility] Administration Apixaban 5 mg 03/23/20 22:00 04/01/20 09:58 Eliquis - PO 5 mg BID [facility] Administration Atorvastatin Calcium 20 mg 03/22/20 22:00 03/31/20 21:27 Lipitor - PO 20 mg HS [facility] Administration Budesonide/Formoterol Fumarate 2 puff 03/22/20 22:00 04/01/20 10:02 Symbicort 160/4.5mcg - IH 2 puff BID [facility] Administration Calcium Carbonate 500 mg 03/23/20 10:00 04/01/20 09:59 Os-Scott 500mg - PO 500 mg DAILY [facility] Administration Docusate Sodium 100 mg 03/22/20 14:00 04/01/20 13:52 Colace - PO 100 mg TID [facility] Administration Fentanyl 50 mcg 03/22/20 09:54 Sublimaze Injection - IVPUSH [id number] PRN PAIN-PACU ORDER X 4 DOSES ONLY Ferrous Sulfate 325 mg 03/22/20 17:30 04/01/20 09:59 Feosol - PO 325 mg BIDWM [facility] Administration Folic Acid 1 mg 03/23/20 10:00 04/01/20 09:59 Folic Acid - PO 1 mg DAILY [facility] Administration Piperacillin Sod/Tazobactam 50 mls @ 100 mls/hr 03/30/20 12:15 04/01/20 09:58 Sod 3.375 gm/ Dextrose IVPB 100 mls/hr Q8H-IV [facility] Administration Protocol Insulin Aspart 1 vial 03/22/20 16:30 04/01/20 11:56 Novolog Vial Sliding Scale - SQ 2 units ACHS [facility] Administration Protocol Insulin Detemir 10 units 03/28/20 22:00 04/01/20 06:25 Levemir Vial SQ 10 units BID@0700,2200 [facility] Administration Leflunomide 10 mg 03/23/20 10:00 04/01/20 10:00 Arava - PO 10 mg DAILY [facility] Administration Loratadine 10 mg 03/23/20 10:00 04/01/20 09:59 Claritin - PO 10 mg DAILY [facility] Administration Losartan Potassium 25 mg 03/23/20 10:00 04/01/20 09:58 Cozaar - PO 25 mg DAILY [facility] Administration Methylprednisolone 4 mg 03/23/20 10:00 04/01/20 10:00 Medrol - PO 4 mg DAILY [facility] Administration Metoprolol Tartrate 25 mg 03/23/20 10:00 04/01/20 09:59 Lopressor - PO 25 mg DAILY [facility] Administration Multivitamins/Minerals/Vitamin C 1 tab 03/23/20 10:00 04/01/20 09:59 Tab-A-Vit - PO 1 tab DAILY [facility] Administration Ondansetron HCl 4 mg 03/22/20 11:24 Zofran Injection IVPUSH Q6H PRN NAUSEA AND/OR VOMITING Pantoprazole Sodium 40 mg 03/23/20 10:00 04/01/20 09:59 Protonix - PO 40 mg DAILY [facility] Administration ASSESSMENT/PLAN: Pt. is a 64 y.o. M w/ PMHx. of HTN, DM, PVD, RA, GERD, Iron Deficiency Anemia and Hx. of PE presented with L. foot gangrene. Pt. is s/p L. TMA and L. BKA #L. foot TMA and BKA with Leukocytosis and Thrombocytosis s/p Left TMA 03/15 and Left BKA 03/22 Consults to wound care, Podiatry and ID appreciated continue IV Zosyn (Day 10) Clean margins as per surgical pathology report. The infected portion had OM, abscess formation, and necrosis( including the stump s/p TMA prior to BKA). Pain control Blood and Urine cultures have been negative here CXR showed no acute pathology WBcs downtrending D/w Dr. Pearl that wound site yesterday looked clean. c/w immobilizer ESR: 108 and CRP: 9.5 WBCs beginning to trend down will continue to monitor. We are concerned that platelets have been rising over the last days suggesting these is a chronic infection c/w PT showing improvements daily #HTN #DM #Hx. of multiple PE #ILD #PVD #GERD #RA #Anemia 2/2 Iron deficiency and chronic disease c/w home medications Levemir BID consult to Heme/Onc appreciated for history of multiple PE consult to Pulmonology appreciated for dyspnea, congested sounding cough in the setting of ILD--> CXR clear f/u Iron studies #FEN LR @ 75 monitor electrolytes and replete as needed Diabetic/Sodium diet #DVT Ppx. c/w Eliquis 5mg BID #Dispo--> awaiting placement for rehab. f/u Rpt. Covid Swab as last swab done more than 72 hour prior and is needed for acceptance. Visit type - Emergency Visit Emergency Visit: Yes ED Registration Date: 03/15/20 Care time: The patient presented to the Emergency Department on the above date and was hospitalized for further evaluation of their emergent condition. - New Patient This patient is new to me today: No - Critical Care Critical Care patient: No - Discharge Referral Referred to [facility] Med P.C.: No ATTENDING PHYSICIAN STATEMENT I saw and evaluated the patient. I reviewed the resident's note and discussed the case with the resident. I agree with the resident's findings and plan as documented. SUBJECTIVE: OBJECTIVE: ASSESSMENT AND PLAN:
[2020-04-01] MEDS: ATORVASTATIN CA 20 MG TABLET (FP) PO SCH (22:38)
[2020-04-02] MEDS ORDERED: PIPERACILLIN/TAZOBACTAM 3.375 GM VIAL IVPB ONE ×2 (01:45→09:23)
[2020-04-02] MEDS ORDERED: DEXTROSE 5%-WATER - 50 ML IVPB ONE ×2 (01:45→09:23)
[2020-04-02] MEDS: PIPERACILLIN/TAZOB 3.375 GM 3.375 GM in DEXTROSE 5%-WATER - 50 ML IVPB SCH ×2 (02:07→09:32)
[2020-04-02] MEDS: DOCUSATE SODIUM 100 MG CAPSULE (FP) PO SCH ×3 (06:24→21:41)
[2020-04-02] MEDS: INSULIN (LEVEMIR) 100 UNITS/ML UNITS SQ SCH ×2 (06:24→21:41)
[2020-04-02] MEDS: INSULIN SLIDING SCALE (NOVOLOG) 1 VIAL SQ SCH ×4 (06:24→21:38)
--- NOTE | 2020-04-02 07:50 | PN ---
Progress Note, Physician History of Present Illness: pulmonary alert,comfortable,less cough,sob improving - Current Medication List Current Medications: Active Medications Acetaminophen (Tylenol -) 325 mg PO Q4H PRN PRN Reason: FEVER Last Admin: 04/01/20 18:12 Dose: 325 mg Documented by: Albuterol Sulfate (Ventolin Hfa Inhaler -) 2 puff IH Q4H PRN PRN Reason: SHORTNESS OF BREATH Amino Acids (Prosource No Carb Liquid Pkt) 30 ml PO BID@0800,1730 [facility] Last Admin: 04/01/20 17:59 Dose: 30 ml Documented by: Apixaban (Eliquis -) 5 mg PO BID [facility] Last Admin: 04/01/20 22:38 Dose: 5 mg Documented by: Atorvastatin Calcium (Lipitor -) 20 mg PO HS [facility] Last Admin: 04/01/20 22:38 Dose: 20 mg Documented by: Budesonide/Formoterol Fumarate (Symbicort 160/4.5mcg -) 2 puff IH BID [facility] Last Admin: 04/01/20 22:39 Dose: 2 puff Documented by: Calcium Carbonate (Os-Scott 500mg -) 500 mg PO DAILY [facility] Last Admin: 04/01/20 09:59 Dose: 500 mg Documented by: Docusate Sodium (Colace -) 100 mg PO TID [facility] Last Admin: 04/02/20 06:24 Dose: 100 mg Documented by: Fentanyl (Sublimaze Injection -) 50 mcg IVPUSH [id number] PRN PRN Reason: PAIN-PACU ORDER X 4 DOSES ONLY Ferrous Sulfate (Feosol -) 325 mg PO BIDWM [facility] Last Admin: 04/01/20 17:59 Dose: 325 mg Documented by: Folic Acid (Folic Acid -) 1 mg PO DAILY [facility] Last Admin: 04/01/20 09:59 Dose: 1 mg Documented by: Piperacillin Sod/Tazobactam (Sod 3.375 gm/ Dextrose) 50 mls @ 100 mls/hr IVPB Q8H-IV [facility]; Protocol Last Admin: 04/02/20 02:07 Dose: 100 mls/hr Documented by: Insulin Aspart (Novolog Vial Sliding Scale -) 1 vial SQ ACHS [facility]; Protocol Last Admin: 04/02/20 06:24 Dose: Not Given Documented by: Insulin Detemir (Levemir Vial) 10 units SQ BID@0700,2200 [facility] Last Admin: 04/02/20 06:24 Dose: 10 units Documented by: Leflunomide (Arava -) 10 mg PO DAILY [facility] Last Admin: 04/01/20 10:00 Dose: 10 mg Documented by: Loratadine (Claritin -) 10 mg PO DAILY [facility] Last Admin: 04/01/20 09:59 Dose: 10 mg Documented by: Losartan Potassium (Cozaar -) 25 mg PO DAILY [facility] Last Admin: 04/01/20 09:58 Dose: 25 mg Documented by: Methylprednisolone (Medrol -) 4 mg PO DAILY [facility] Last Admin: 04/01/20 10:00 Dose: 4 mg Documented by: Metoprolol Tartrate (Lopressor -) 25 mg PO DAILY [facility] Last Admin: 04/01/20 09:59 Dose: 25 mg Documented by: Multivitamins/Minerals/Vitamin C (Tab-A-Vit -) 1 tab PO DAILY [facility] Last Admin: 04/01/20 09:59 Dose: 1 tab Documented by: Ondansetron HCl (Zofran Injection) 4 mg IVPUSH Q6H PRN PRN Reason: NAUSEA AND/OR VOMITING Pantoprazole Sodium (Protonix -) 40 mg PO DAILY [facility] Last Admin: 04/01/20 09:59 Dose: 40 mg Documented by: - Objective Vital Signs: Vital Signs Temperature 98.2 F 04/02/20 06:00 Pulse Rate 83 04/02/20 06:00 Respiratory Rate 20 04/02/20 06:00 Blood Pressure 129/74 04/02/20 06:00 O2 Sat by Pulse Oximetry (%) 98 04/02/20 06:00 Constitutional: Yes: Calm, Thin Eyes: Yes: WNL HENT: Yes: WNL Neck: Yes: WNL Cardiovascular: Yes: Regular Rate and Rhythm, S1, S2 Respiratory: Yes: Rales (thai crackles) Gastrointestinal: Yes: Normal Bowel Sounds, Soft Extremities: Yes: Amputation (left bka) Edema: No Labs: CBC, BMP Problem List - Problems (1) S/P transmetatarsal amputation of foot Code(s): Z89.439 - ACQUIRED ABSENCE OF UNSPECIFIED FOOT (2) Diabetic foot ulcer Code(s): E11.621 - TYPE 2 DIABETES MELLITUS WITH FOOT ULCER; L97.509 - NON- PRESSURE CHRONIC ULCER OTH PRT UNSP FOOT W UNSP SEVERITY (3) Gangrene of toe of left foot Code(s): I96 - GANGRENE, NOT ELSEWHERE CLASSIFIED (4) ILD (interstitial lung disease) Code(s): J84.9 - INTERSTITIAL PULMONARY DISEASE, UNSPECIFIED (5) PVD (peripheral vascular disease) Code(s): I73.9 - PERIPHERAL VASCULAR DISEASE, UNSPECIFIED (6) Painful amputation stump Code(s): T87.89 - OTHER COMPLICATIONS OF AMPUTATION STUMP; M79.609 - PAIN IN UNSPECIFIED LIMB (7) Pneumonia Code(s): J18.9 - PNEUMONIA, UNSPECIFIED ORGANISM Qualifiers: Laterality: left Lung location: lower lobe of lung (8) Shortness of breath Code(s): R06.02 - SHORTNESS OF BREATH (9) Hypertension Code(s): I10 - ESSENTIAL (PRIMARY) HYPERTENSION (10) Recurrent pulmonary embolism Code(s): I26.99 - OTHER PULMONARY EMBOLISM WITHOUT ACUTE COR PULMONALE (11) Type 2 diabetes mellitus Code(s): E11.9 - TYPE 2 DIABETES MELLITUS WITHOUT COMPLICATIONS Assessment/Plan IMP DYSPNEA IMPROVED ILD/BRONCHIECTASIS H/O RECURRENT PE 2014,2017 H/O OPEN HEART SURGERY SECONDARY TP PE ? THROMBECTOMY RLL LUNG NODULE ?LLL INFILTRATE HTN PVD DM HLD CHRONIC OSTEOMYELITIS S/P LEFT BKA ANEMIA PLAN SUPPLEMENTAL O2 INHALED BRONCHODILATORS WOUND CARE MONITOR LYTES,H+H F/U CHEST X-RAYS DR PLASCENCIA Problem List - Problems (1) S/P transmetatarsal amputation of foot Code(s): Z89.439 - ACQUIRED ABSENCE OF UNSPECIFIED FOOT (2) Diabetic foot ulcer Code(s): E11.621 - TYPE 2 DIABETES MELLITUS WITH FOOT ULCER; L97.509 - NON- PRESSURE CHRONIC ULCER OTH PRT UNSP FOOT W UNSP SEVERITY (3) Gangrene of toe of left foot Code(s): I96 - GANGRENE, NOT ELSEWHERE CLASSIFIED (4) ILD (interstitial lung disease) Code(s): J84.9 - INTERSTITIAL PULMONARY DISEASE, UNSPECIFIED (5) PVD (peripheral vascular disease) Code(s): I73.9 - PERIPHERAL VASCULAR DISEASE, UNSPECIFIED (6) Painful amputation stump Code(s): T87.89 - OTHER COMPLICATIONS OF AMPUTATION STUMP; M79.609 - PAIN IN UNSPECIFIED LIMB (7) Pneumonia Code(s): J18.9 - PNEUMONIA, UNSPECIFIED ORGANISM Qualifiers: Laterality: left Lung location: lower lobe of lung (8) Shortness of breath Code(s): R06.02 - SHORTNESS OF BREATH (9) Hypertension Code(s): I10 - ESSENTIAL (PRIMARY) HYPERTENSION (10) Recurrent pulmonary embolism Code(s): I26.99 - OTHER PULMONARY EMBOLISM WITHOUT ACUTE COR PULMONALE (11) Type 2 diabetes mellitus Code(s): E11.9 - TYPE 2 DIABETES MELLITUS WITHOUT COMPLICATIONS
[2020-04-02 08:19] LABS: BASO % 2.6 % (0-2.0); EOS % 5.1 % (0-4.5); HEMATOCRIT 30.7 % (35.4-49); LYMPH % 21.9 % (8-40); MCH 28.2 pg (25.7-33.7); MCHC 32.6 g/dl (32.0-35.9); MEAN CELL VOLUME 86.5 fl (80-96); MEAN PLT VOLUME 7.7 fl (7.5-11.1); MONO % 8.9 % (3.8-10.2); NEUT % 61.5 % (42.8-82.8); PLATELET COUNT 735 K/MM3 (134-434); RBC 3.54 M/mm3 (4.00-5.60); RDW 14.9 % (11.9-15.9); WHITE BLOOD COUNT 11.6 K/mm3 (4.0-10.0)
[2020-04-02 08:30] LABS: BLOOD UREA NITROGEN 12.5 mg/dL (7-18); CALCIUM 8.3 mg/dL (8.5-10.1); CREATININE 0.7 mg/dL (0.55-1.3); POTASSIUM 4.1 mmol/L (3.5-5.1)
[2020-04-02] MEDS ORDERED: PT OWN MED DRAWER 7, Y5N ONE (09:22)
[2020-04-02] MEDS: AMINO ACIDS/PROTEIN HYDROLYS 30 ML LIQUID.PKT PO SCH ×2 (09:32→17:49)
[2020-04-02] MEDS: methylPREDNISolone 4 MG TABLET PO SCH (09:32)
[2020-04-02] MEDS: LOSARTAN POTASSIUM 25 MG TABLET PO SCH (09:33)
[2020-04-02] MEDS: LORATADINE 10 MG TABLET PO SCH (09:33)
[2020-04-02] MEDS: LEFLUNOMIDE 10 MG TABLET PO SCH (09:33)
[2020-04-02] MEDS: METOPROLOL TARTRATE 25 MG TABLET (FP) PO SCH (09:33)
[2020-04-02] MEDS: CALCIUM (OYSTER SHELL) 500 MG TABLET (FP) PO SCH (09:33)
[2020-04-02] MEDS: MULTIVITAMINS (DAILY MVI) TABLET (FP) PO SCH (09:33)
[2020-04-02] MEDS: PANTOPRAZOLE 20 MG TABLET PO SCH (09:33)
[2020-04-02] MEDS: FOLIC ACID 1 MG TABLET (FP) PO SCH (09:33)
[2020-04-02] MEDS: FERROUS SO4 325 MG TABLET (FP) PO SCH ×2 (09:33→17:49)
[2020-04-02] MEDS: APIXABAN 5 MG TABLET PO SCH ×2 (09:34→21:40)
[2020-04-02] MEDS: BUDESONIDE/FORMETEROL FUMARATE 160/4.5 mcg INHALER IH SCH ×2 (09:36→21:49)
--- NOTE | 2020-04-02 11:15 | OP ---
DATE OF OPERATION: 03/22/2020 PREOPERATIVE DIAGNOSIS: Gangrene, left foot. POSTOPERATIVE DIAGNOSIS: Gangrene, left foot. PROCEDURE: Left below-knee amputation. SURGEON: Torres Antonio DO NUCLEAR EQUIPMENT RESEARCH ENGINEER: YAJAIRA Brown BLOOD LOSS: 300 mL. HISTORY: Patient is a 64-year-old male who has left foot gangrene. He has had angioplasty with revascularization, but he has small vessel disease due to his diabetes in his left foot. He had a 1st ray amputation done. He had a TMA done. Both were not able to heal and now needs a BKA. Patient was consented for the procedure understanding all risks, benefits, and alternatives. Was then brought to the operating room. DESCRIPTION OF PROCEDURE: Once in the operating room, was laid on the operating room table in supine manner, and general anesthesia was administered. We then went ahead and went 4 fingerbreadths to the tibial tuberosity, and we barbara a step off incision using our skin marker. We then went ahead and prepped and draped in the left lower extremity in a sterile, surgical manner. We then went ahead and used a No. 15 blade and cut along our incision circumferentially. Bovie electrocautery was used to control hemostasis. We were able to get down to all of the muscles in the anterior leg, and these were taken down using Bovie electrocautery. We were then able to go medially and dissect out our anterior tibial vein and artery, and those were clamped and suture ligated using 0 silk. We went laterally and took down our muscle, and we were able to dissect our posterior tibial artery and vein, and those were clamped, ligated with 0 silk suture ligature. We then were able to expose the tibia and the fibula. We then took the psoas muscle done, and we were able to dissect out our peroneal artery and vein, and those were dissected out and clamped and suture ligated using 0 silk. Once complete, we went circumferentially, and we were able to take down our gastrocnemius muscle using Bovie electrocautery. Once all of the attachments were done, we were then able to use our reticulating saw, and we were able to transect the tibia and transect the fibula 2 cm above. Once that was done, the leg was sent off to Pathology. We then irrigated the wound copiously. We then took our oscillating saw, and we beveled our tibia. Once completed, we then went ahead and we were able to approximate the fascia, and using 2-0 Vicryl, we were able to approximate the fascia in an interrupted manner, and the skin was closed with skin birdie. The area was wet and dried. Xeroform, 4 x 4s, Tegaderm, Kerlix, and Coban were placed. Patient's leg was placed in the knee immobilizer. Patient tolerated the procedure with no complications. Patient was transferred to PACU in stable condition. TORRES ANTONIO DO [id number]
--- NOTE | 2020-04-02 11:57 | PN ---
Progress Note, Physician History of Present Illness: stable no new issues - Current Medication List Current Medications: Active Medications Acetaminophen (Tylenol -) 325 mg PO Q4H PRN PRN Reason: FEVER Last Admin: 04/01/20 18:12 Dose: 325 mg Documented by: Albuterol Sulfate (Ventolin Hfa Inhaler -) 2 puff IH Q4H PRN PRN Reason: SHORTNESS OF BREATH Amino Acids (Prosource No Carb Liquid Pkt) 30 ml PO BID@0800,1730 [facility] Last Admin: 04/02/20 09:32 Dose: 30 ml Documented by: Apixaban (Eliquis -) 5 mg PO BID [facility] Last Admin: 04/02/20 09:34 Dose: 5 mg Documented by: Atorvastatin Calcium (Lipitor -) 20 mg PO HS [facility] Last Admin: 04/01/20 22:38 Dose: 20 mg Documented by: Budesonide/Formoterol Fumarate (Symbicort 160/4.5mcg -) 2 puff IH BID [facility] Last Admin: 04/02/20 09:36 Dose: 2 puff Documented by: Calcium Carbonate (Os-Scott 500mg -) 500 mg PO DAILY [facility] Last Admin: 04/02/20 09:33 Dose: 500 mg Documented by: Docusate Sodium (Colace -) 100 mg PO TID [facility] Last Admin: 04/02/20 06:24 Dose: 100 mg Documented by: Fentanyl (Sublimaze Injection -) 50 mcg IVPUSH [id number] PRN PRN Reason: PAIN-PACU ORDER X 4 DOSES ONLY Ferrous Sulfate (Feosol -) 325 mg PO BIDWM [facility] Last Admin: 04/02/20 09:33 Dose: 325 mg Documented by: Folic Acid (Folic Acid -) 1 mg PO DAILY [facility] Last Admin: 04/02/20 09:33 Dose: 1 mg Documented by: Insulin Aspart (Novolog Vial Sliding Scale -) 1 vial SQ [facility]; Protocol Last Admin: 04/02/20 11:41 Dose: 4 units Documented by: Insulin Detemir (Levemir Vial) 10 units SQ BID@0700,2200 [facility] Last Admin: 04/02/20 06:24 Dose: 10 units Documented by: Leflunomide (Arava -) 10 mg PO DAILY [facility] Last Admin: 04/02/20 09:33 Dose: 10 mg Documented by: Loratadine (Claritin -) 10 mg PO DAILY [facility] Last Admin: 04/02/20 09:33 Dose: 10 mg Documented by: Losartan Potassium (Cozaar -) 25 mg PO DAILY [facility] Last Admin: 04/02/20 09:33 Dose: 25 mg Documented by: Methylprednisolone (Medrol -) 4 mg PO DAILY [facility] Last Admin: 04/02/20 09:32 Dose: 4 mg Documented by: Metoprolol Tartrate (Lopressor -) 25 mg PO DAILY [facility] Last Admin: 04/02/20 09:33 Dose: 25 mg Documented by: Multivitamins/Minerals/Vitamin C (Tab-A-Vit -) 1 tab PO DAILY [facility] Last Admin: 04/02/20 09:33 Dose: 1 tab Documented by: Ondansetron HCl (Zofran Injection) 4 mg IVPUSH Q6H PRN PRN Reason: NAUSEA AND/OR VOMITING Pantoprazole Sodium (Protonix -) 40 mg PO DAILY [facility] Last Admin: 04/02/20 09:33 Dose: 40 mg Documented by: - Objective Vital Signs: Vital Signs Temperature 97.8 F 04/02/20 09:02 Pulse Rate 92 H 04/02/20 09:02 Respiratory Rate 20 04/02/20 09:02 Blood Pressure 106/75 04/02/20 09:02 O2 Sat by Pulse Oximetry (%) 96 04/02/20 09:02 Constitutional: Yes: No Distress, Calm Cardiovascular: Yes: S1, S2 Respiratory: Yes: Regular, CTA Bilaterally Gastrointestinal: Yes: Normal Bowel Sounds, Soft Musculoskeletal: Yes: WNL Extremities: Yes: WNL Neurological: Yes: Alert, Oriented Psychiatric: Yes: Alert, Oriented Labs: CBC, BMP 04/02/20 07:20 04/02/20 07:20 Assessment/Plan 64 y.o. M w/ PMHx. of HTN, DM, PVD, RA, GERD, Iron Deficiency Anemia and Hx. of PE presented with L. foot gangrene. Pt. is s/p L. TMA L. foot TMA htn pna dm gerd h/o of pe plan will change to oral abx rest as per the team
[2020-04-02 13:04] LABS: ANISOCYTOSIS 0; MACROCYTOSIS 0; PLATELET ESTIMATE INCREASED
--- NOTE | 2020-04-02 13:45 | PN ---
Teaching Attending Note Name of Resident: Antione Saleem ATTENDING PHYSICIAN STATEMENT I saw and evaluated the patient. I reviewed the resident's note and discussed the case with the resident. I agree with the resident's findings and plan as documented. SUBJECTIVE: Seen and examined at bedside. Patient reporting phantom limb pain. Can start gabapentin 100mg TID. Outpt referral to PM&R OBJECTIVE Last Vital Signs Temp Pulse Resp BP Pulse Ox 97.8 F 92 H 20 106/75 96 04/02/20 09:02 04/02/20 09:02 04/02/20 09:02 04/02/20 09:02 04/02/20 09:02 PE: Per resident note Labs/Imaging: reviewed ASSESSMENT/PLAN 64-year-old male with past medical history of hypertension, diabetes, PVD, RA, GERD, iron deficiency anemia presents with left foot gangrene. 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 Patient had complicated postoperative course with prolonged white count elevation which improved with IV antibiotics. He is now medically cleared for discharge. He will be discharged on Augmentin and gabapentin for phantom limb pain in addition to his home medications.
[2020-04-02] MEDS: oxyCODONE HCL 5 MG TABLET PO PRN ×2 (15:05→21:40)
[2020-04-02] MEDS: AMOX TR/POT CLAV 875MG/125MG TABLETS (FP) PO SCH (17:49)
[2020-04-02] MEDS ORDERED: morphine SULFATE 4 MG/ML VIAL IVPUSH ONE (21:38)
[2020-04-02] MEDS ORDERED: MELATONIN 5 MG TABLETS PO ONE (21:38)
[2020-04-02] MEDS: ATORVASTATIN CA 20 MG TABLET (FP) PO SCH (21:40)
[2020-04-02] MEDS: GABAPENTIN 100 MG CAPSULE PO SCH (22:55)
[2020-04-02] MEDS: ACETAMINOPHEN 325 MG TABLET (FP) PO PRN (22:55)
--- NOTE | 2020-04-03 00:22 | PN ---
Progress Note, Physician Chief Complaint: Pt A&Ox3; c/o pain at surgical site of LLE; no chest pain or dyspnea. History of Present Illness: Mr. Cummings is a 64-year-old male (b. [place]), with past medical history of hypertension, hyperlipidemia, rheumatoid arthritis, GERD, JAMES, also PE, coronary artery disease diabetes with neuropathy admitted for left foot osteomyelitis status post below-knee amputation. - Current Medication List Current Medications: Active Medications Acetaminophen (Tylenol -) 325 mg PO Q4H PRN PRN Reason: FEVER Last Admin: 04/02/20 22:55 Dose: 325 mg Documented by: Albuterol Sulfate (Ventolin Hfa Inhaler -) 2 puff IH Q4H PRN PRN Reason: SHORTNESS OF BREATH Amino Acids (Prosource No Carb Liquid Pkt) 30 ml PO BID@0800,1730 [facility] Last Admin: 04/02/20 17:49 Dose: 30 ml Documented by: Amoxicillin/Clavulanate Potassium (Augmentin - 875mg Tablet) 1 tab PO BID@0800,1730 [facility] Last Admin: 04/02/20 17:49 Dose: 1 tab Documented by: Apixaban (Eliquis -) 5 mg PO BID [facility] Last Admin: 04/02/20 21:40 Dose: 5 mg Documented by: Atorvastatin Calcium (Lipitor -) 20 mg PO HS [facility] Last Admin: 04/02/20 21:40 Dose: 20 mg Documented by: Budesonide/Formoterol Fumarate (Symbicort 160/4.5mcg -) 2 puff IH BID [facility] Last Admin: 04/02/20 21:49 Dose: 2 puff Documented by: Calcium Carbonate (Os-Scott 500mg -) 500 mg PO DAILY [facility] Last Admin: 04/02/20 09:33 Dose: 500 mg Documented by: Docusate Sodium (Colace -) 100 mg PO TID [facility] Last Admin: 04/02/20 21:41 Dose: 100 mg Documented by: Ferrous Sulfate (Feosol -) 325 mg PO BIDWM [facility] Last Admin: 04/02/20 17:49 Dose: 325 mg Documented by: Folic Acid (Folic Acid -) 1 mg PO DAILY [facility] Last Admin: 04/02/20 09:33 Dose: 1 mg Documented by: Gabapentin (Neurontin -) 200 mg PO TID [facility] Last Admin: 04/02/20 22:55 Dose: 200 mg Documented by: Insulin Aspart (Novolog Vial Sliding Scale -) 1 vial SQ ACHS [facility]; Protocol Last Admin: 04/02/20 21:38 Dose: 6 units Documented by: Insulin Detemir (Levemir Vial) 10 units SQ BID@0700,2200 [facility] Last Admin: 04/02/20 21:41 Dose: 10 units Documented by: Leflunomide (Arava -) 10 mg PO DAILY [facility] Last Admin: 04/02/20 09:33 Dose: 10 mg Documented by: Loratadine (Claritin -) 10 mg PO DAILY [facility] Last Admin: 04/02/20 09:33 Dose: 10 mg Documented by: Losartan Potassium (Cozaar -) 25 mg PO DAILY [facility] Last Admin: 04/02/20 09:33 Dose: 25 mg Documented by: Methylprednisolone (Medrol -) 4 mg PO DAILY [facility] Last Admin: 04/02/20 09:32 Dose: 4 mg Documented by: Metoprolol Tartrate (Lopressor -) 25 mg PO DAILY [facility] Last Admin: 04/02/20 09:33 Dose: 25 mg Documented by: Multivitamins/Minerals/Vitamin C (Tab-A-Vit -) 1 tab PO DAILY [facility] Last Admin: 04/02/20 09:33 Dose: 1 tab Documented by: Ondansetron HCl (Zofran Injection) 4 mg IVPUSH Q6H PRN PRN Reason: NAUSEA AND/OR VOMITING Oxycodone HCl (Roxicodone -) 5 mg PO Q6H PRN PRN Reason: PAIN LEVEL 7 - 10 Last Admin: 04/02/20 21:40 Dose: 5 mg Documented by: Pantoprazole Sodium (Protonix -) 40 mg PO DAILY [facility] Last Admin: 04/02/20 09:33 Dose: 40 mg Documented by: - Objective Vital Signs: Vital Signs Temperature 97.9 F 04/02/20 21:17 Pulse Rate 93 H 04/02/20 21:17 Respiratory Rate 18 04/02/20 21:17 Blood Pressure 98/61 04/02/20 21:17 O2 Sat by Pulse Oximetry (%) 98 04/02/20 21:17 Labs: CBC, BMP 04/02/20 07:20 04/02/20 07:20 Assessment/Plan Mr. Sarder is a 64-year-old male with past medical history of hypertension, hyperlipidemia, rheumatoid arthritis, GERD, JAMES, s/p PE, coronary artery disease, diabetes with neuropathy, now admitted for left foot osteomyelitis; status post below-knee amputation. Plan: Cardiac castro stable f/u EKG (prolonged QT) Continue AC
[2020-04-03] MEDS: GABAPENTIN 100 MG CAPSULE PO SCH ×2 (06:34→13:55)
[2020-04-03] MEDS: oxyCODONE HCL 5 MG TABLET PO PRN ×2 (06:34→14:03)
[2020-04-03] MEDS: DOCUSATE SODIUM 100 MG CAPSULE (FP) PO SCH ×2 (06:34→13:55)
--- NOTE | 2020-04-03 07:46 | PN ---
Progress Note, Physician History of Present Illness: PULMONARY ALERT,COMFORTABLE,AMBULATING WITH PT - Current Medication List Current Medications: Active Medications Acetaminophen (Tylenol -) 325 mg PO Q4H PRN PRN Reason: FEVER Last Admin: 04/02/20 22:55 Dose: 325 mg Documented by: Albuterol Sulfate (Ventolin Hfa Inhaler -) 2 puff IH Q4H PRN PRN Reason: SHORTNESS OF BREATH Amino Acids (Prosource No Carb Liquid Pkt) 30 ml PO BID@0800,1730 [facility] Last Admin: 04/02/20 17:49 Dose: 30 ml Documented by: Amoxicillin/Clavulanate Potassium (Augmentin - 875mg Tablet) 1 tab PO BID@0800,1730 [facility] Last Admin: 04/02/20 17:49 Dose: 1 tab Documented by: Apixaban (Eliquis -) 5 mg PO BID [facility] Last Admin: 04/02/20 21:40 Dose: 5 mg Documented by: Atorvastatin Calcium (Lipitor -) 20 mg PO HS [facility] Last Admin: 04/02/20 21:40 Dose: 20 mg Documented by: Budesonide/Formoterol Fumarate (Symbicort 160/4.5mcg -) 2 puff IH BID [facility] Last Admin: 04/02/20 21:49 Dose: 2 puff Documented by: Calcium Carbonate (Os-Scott 500mg -) 500 mg PO DAILY [facility] Last Admin: 04/02/20 09:33 Dose: 500 mg Documented by: Docusate Sodium (Colace -) 100 mg PO TID [facility] Last Admin: 04/03/20 06:34 Dose: 100 mg Documented by: Ferrous Sulfate (Feosol -) 325 mg PO BIDWM [facility] Last Admin: 04/02/20 17:49 Dose: 325 mg Documented by: Folic Acid (Folic Acid -) 1 mg PO DAILY [facility] Last Admin: 04/02/20 09:33 Dose: 1 mg Documented by: Gabapentin (Neurontin -) 200 mg PO TID [facility] Last Admin: 04/03/20 06:34 Dose: 200 mg Documented by: Insulin Aspart (Novolog Vial Sliding Scale -) 1 vial SQ [facility]; Protocol Last Admin: 04/02/20 21:38 Dose: 6 units Documented by: Insulin Detemir (Levemir Vial) 10 units SQ BID@0700,2200 [facility] Last Admin: 04/02/20 21:41 Dose: 10 units Documented by: Leflunomide (Arava -) 10 mg PO DAILY [facility] Last Admin: 04/02/20 09:33 Dose: 10 mg Documented by: Loratadine (Claritin -) 10 mg PO DAILY [facility] Last Admin: 04/02/20 09:33 Dose: 10 mg Documented by: Losartan Potassium (Cozaar -) 25 mg PO DAILY [facility] Last Admin: 04/02/20 09:33 Dose: 25 mg Documented by: Methylprednisolone (Medrol -) 4 mg PO DAILY [facility] Last Admin: 04/02/20 09:32 Dose: 4 mg Documented by: Metoprolol Tartrate (Lopressor -) 25 mg PO DAILY [facility] Last Admin: 04/02/20 09:33 Dose: 25 mg Documented by: Multivitamins/Minerals/Vitamin C (Tab-A-Vit -) 1 tab PO DAILY [facility] Last Admin: 04/02/20 09:33 Dose: 1 tab Documented by: Ondansetron HCl (Zofran Injection) 4 mg IVPUSH Q6H PRN PRN Reason: NAUSEA AND/OR VOMITING Oxycodone HCl (Roxicodone -) 5 mg PO Q6H PRN PRN Reason: PAIN LEVEL 7 - 10 Last Admin: 04/03/20 06:34 Dose: 5 mg Documented by: Pantoprazole Sodium (Protonix -) 40 mg PO DAILY [facility] Last Admin: 04/02/20 09:33 Dose: 40 mg Documented by: - Objective Vital Signs: Vital Signs Temperature 98.1 F 04/03/20 06:00 Pulse Rate 84 04/03/20 06:00 Respiratory Rate 18 04/03/20 06:00 Blood Pressure 122/77 04/03/20 06:00 O2 Sat by Pulse Oximetry (%) 100 04/03/20 06:00 Constitutional: Yes: Calm, Thin Eyes: Yes: WNL HENT: Yes: WNL Neck: Yes: WNL Cardiovascular: Yes: Regular Rate and Rhythm, S1, S2 Respiratory: Yes: Rales, Rhonchi (JANY CRACKLES,FEW SCATTERED RHONCHI) Gastrointestinal: Yes: Normal Bowel Sounds, Soft Extremities: Yes: Amputation (L BKA) Edema: No Labs: CBC, BMP Problem List - Problems (1) S/P transmetatarsal amputation of foot Code(s): Z89.439 - ACQUIRED ABSENCE OF UNSPECIFIED FOOT (2) Diabetic foot ulcer Code(s): E11.621 - TYPE 2 DIABETES MELLITUS WITH FOOT ULCER; L97.509 - NON- PRESSURE CHRONIC ULCER OTH PRT UNSP FOOT W UNSP SEVERITY (3) Gangrene of toe of left foot Code(s): I96 - GANGRENE, NOT ELSEWHERE CLASSIFIED (4) ILD (interstitial lung disease) Code(s): J84.9 - INTERSTITIAL PULMONARY DISEASE, UNSPECIFIED (5) PVD (peripheral vascular disease) Code(s): I73.9 - PERIPHERAL VASCULAR DISEASE, UNSPECIFIED (6) Painful amputation stump Code(s): T87.89 - OTHER COMPLICATIONS OF AMPUTATION STUMP; M79.609 - PAIN IN UNSPECIFIED LIMB (7) Pneumonia Code(s): J18.9 - PNEUMONIA, UNSPECIFIED ORGANISM Qualifiers: Laterality: left Lung location: lower lobe of lung (8) Shortness of breath Code(s): R06.02 - SHORTNESS OF BREATH (9) Hypertension Code(s): I10 - ESSENTIAL (PRIMARY) HYPERTENSION (10) Recurrent pulmonary embolism Code(s): I26.99 - OTHER PULMONARY EMBOLISM WITHOUT ACUTE COR PULMONALE (11) Type 2 diabetes mellitus Code(s): E11.9 - TYPE 2 DIABETES MELLITUS WITHOUT COMPLICATIONS Assessment/Plan IMP DYSPNEA IMPROVED ILD/BRONCHIECTASIS H/O RECURRENT PE 2014,2017 H/O OPEN HEART SURGERY SECONDARY TP PE ? THROMBECTOMY RLL LUNG NODULE ?LLL INFILTRATE HTN PVD DM HLD CHRONIC OSTEOMYELITIS S/P LEFT BKA ANEMIA PLAN SUPPLEMENTAL O2 INHALED BRONCHODILATORS WOUND CARE MONITOR LYTES,H+H F/U CHEST X-RAYS PT DR PLASCENCIA Problem List - Problems (1) S/P transmetatarsal amputation of foot Code(s): Z89.439 - ACQUIRED ABSENCE OF UNSPECIFIED FOOT (2) Diabetic foot ulcer Code(s): E11.621 - TYPE 2 DIABETES MELLITUS WITH FOOT ULCER; L97.509 - NON- PRESSURE CHRONIC ULCER OTH PRT UNSP FOOT W UNSP SEVERITY (3) Gangrene of toe of left foot Code(s): I96 - GANGRENE, NOT ELSEWHERE CLASSIFIED (4) ILD (interstitial lung disease) Code(s): J84.9 - INTERSTITIAL PULMONARY DISEASE, UNSPECIFIED (5) PVD (peripheral vascular disease) Code(s): I73.9 - PERIPHERAL VASCULAR DISEASE, UNSPECIFIED (6) Painful amputation stump Code(s): T87.89 - OTHER COMPLICATIONS OF AMPUTATION STUMP; M79.609 - PAIN IN UNSPECIFIED LIMB (7) Pneumonia Code(s): J18.9 - PNEUMONIA, UNSPECIFIED ORGANISM Qualifiers: Laterality: left Lung location: lower lobe of lung (8) Shortness of breath Code(s): R06.02 - SHORTNESS OF BREATH (9) Hypertension Code(s): I10 - ESSENTIAL (PRIMARY) HYPERTENSION (10) Recurrent pulmonary embolism Code(s): I26.99 - OTHER PULMONARY EMBOLISM WITHOUT ACUTE COR PULMONALE (11) Type 2 diabetes mellitus Code(s): E11.9 - TYPE 2 DIABETES MELLITUS WITHOUT COMPLICATIONS
[2020-04-03] MEDS: INSULIN SLIDING SCALE (NOVOLOG) 1 VIAL SQ SCH ×3 (07:51→16:39)
[2020-04-03] MEDS ORDERED: PT OWN MED DRAWER 7, Y5N ONE (08:03)
[2020-04-03] MEDS: FERROUS SO4 325 MG TABLET (FP) PO SCH (08:31)
[2020-04-03] MEDS: INSULIN (LEVEMIR) 100 UNITS/ML UNITS SQ SCH (08:31)
[2020-04-03] MEDS: AMOX TR/POT CLAV 875MG/125MG TABLETS (FP) PO SCH (08:31)
[2020-04-03] MEDS: AMINO ACIDS/PROTEIN HYDROLYS 30 ML LIQUID.PKT PO SCH (08:31)
[2020-04-03] MEDS: APIXABAN 5 MG TABLET PO SCH (10:21)
[2020-04-03] MEDS: MULTIVITAMINS (DAILY MVI) TABLET (FP) PO SCH (10:21)
[2020-04-03] MEDS: LEFLUNOMIDE 10 MG TABLET PO SCH (10:21)
[2020-04-03] MEDS: FOLIC ACID 1 MG TABLET (FP) PO SCH (10:21)
[2020-04-03] MEDS: METOPROLOL TARTRATE 25 MG TABLET (FP) PO SCH (10:21)
[2020-04-03] MEDS: LORATADINE 10 MG TABLET PO SCH (10:21)
[2020-04-03] MEDS: PANTOPRAZOLE 20 MG TABLET PO SCH (10:21)
[2020-04-03] MEDS: CALCIUM (OYSTER SHELL) 500 MG TABLET (FP) PO SCH (10:21)
[2020-04-03] MEDS: methylPREDNISolone 4 MG TABLET PO SCH (10:22)
[2020-04-03] MEDS: LOSARTAN POTASSIUM 25 MG TABLET PO SCH (10:22)
[2020-04-03] MEDS: BUDESONIDE/FORMETEROL FUMARATE 160/4.5 mcg INHALER IH SCH (10:23)
--- NOTE | 2020-04-03 11:07 | PN ---
Progress Note, Physician History of Present Illness: 64-year-old male with past medical history of hypertension hyperlipidemia rheumatoid arthritis GERD JAMES also PE coronary artery disease diabetes with neuropathy admitted for left foot osteomyelitis status post below-knee amputation. PMH Asthma Bronchiectasis Type 2 Diabetes 2000 Esophageal Reflux Hypertension Pulmonary Embolism 2014. treated for 1 year Recurrent pulmonary emboli s/p embolectomy Feb 2018 Rheumatoid Arthritis Spondylosis Hyperlipidemia - Current Medication List Current Medications: Active Medications Acetaminophen (Tylenol -) 325 mg PO Q4H PRN PRN Reason: FEVER Last Admin: 04/02/20 22:55 Dose: 325 mg Documented by: Albuterol Sulfate (Ventolin Hfa Inhaler -) 2 puff IH Q4H PRN PRN Reason: SHORTNESS OF BREATH Amino Acids (Prosource No Carb Liquid Pkt) 30 ml PO BID@0800,1730 [facility] Last Admin: 04/03/20 08:31 Dose: 30 ml Documented by: Amoxicillin/Clavulanate Potassium (Augmentin - 875mg Tablet) 1 tab PO BID@0800 ,1730 [facility] Last Admin: 04/03/20 08:31 Dose: 1 tab Documented by: Apixaban (Eliquis -) 5 mg PO BID [facility] Last Admin: 04/03/20 10:21 Dose: 5 mg Documented by: Atorvastatin Calcium (Lipitor -) 20 mg PO HS [facility] Last Admin: 04/02/20 21:40 Dose: 20 mg Documented by: Budesonide/Formoterol Fumarate (Symbicort 160/4.5mcg -) 2 puff IH BID [facility] Last Admin: 04/03/20 10:23 Dose: 2 puff Documented by: Calcium Carbonate (Os-Scott 500mg -) 500 mg PO DAILY [facility] Last Admin: 04/03/20 10:21 Dose: 500 mg Documented by: Docusate Sodium (Colace -) 100 mg PO TID [facility] Last Admin: 04/03/20 06:34 Dose: 100 mg Documented by: Ferrous Sulfate (Feosol -) 325 mg PO BIDWM [facility] Last Admin: 04/03/20 08:31 Dose: 325 mg Documented by: Folic Acid (Folic Acid -) 1 mg PO DAILY [facility] Last Admin: 04/03/20 10:21 Dose: 1 mg Documented by: Gabapentin (Neurontin -) 200 mg PO TID [facility] Last Admin: 04/03/20 06:34 Dose: 200 mg Documented by: Insulin Aspart (Novolog Vial Sliding Scale -) [address] [facility]; Protocol Last Admin: 04/03/20 07:51 Dose: Not Given Documented by: Insulin Detemir (Levemir Vial) 10 units SQ BID@0700,2200 [facility] Last Admin: 04/03/20 08:31 Dose: 10 units Documented by: Leflunomide (Arava -) 10 mg PO DAILY [facility] Last Admin: 04/03/20 10:21 Dose: 10 mg Documented by: Loratadine (Claritin -) 10 mg PO DAILY [facility] Last Admin: 04/03/20 10:21 Dose: 10 mg Documented by: Losartan Potassium (Cozaar -) 25 mg PO DAILY [facility] Last Admin: 04/03/20 10:22 Dose: 25 mg Documented by: Methylprednisolone (Medrol -) 4 mg PO DAILY [facility] Last Admin: 04/03/20 10:22 Dose: 4 mg Documented by: Metoprolol Tartrate (Lopressor -) 25 mg PO DAILY [facility] Last Admin: 04/03/20 10:21 Dose: 25 mg Documented by: Multivitamins/Minerals/Vitamin C (Tab-A-Vit -) 1 tab PO DAILY [facility] Last Admin: 04/03/20 10:21 Dose: 1 tab Documented by: Ondansetron HCl (Zofran Injection) 4 mg IVPUSH Q6H PRN PRN Reason: NAUSEA AND/OR VOMITING Oxycodone HCl (Roxicodone -) 5 mg PO Q6H PRN PRN Reason: PAIN LEVEL 7 - 10 Last Admin: 04/03/20 06:34 Dose: 5 mg Documented by: Pantoprazole Sodium (Protonix -) 40 mg PO DAILY [facility] Last Admin: 04/03/20 10:21 Dose: 40 mg Documented by: - Objective Vital Signs: Vital Signs Temperature 98.1 F 04/03/20 06:00 Pulse Rate 84 04/03/20 06:00 Respiratory Rate 18 04/03/20 06:00 Blood Pressure 122/77 04/03/20 06:00 O2 Sat by Pulse Oximetry (%) 100 04/03/20 06:00 Eyes: Yes: WNL, Conjunctiva Clear, EOM Intact HENT: Yes: WNL, Atraumatic, Normocephalic Neck: Yes: WNL, Supple, Trachea Midline Cardiovascular: Yes: WNL, Regular Rate and Rhythm Respiratory: Yes: WNL, Regular, CTA Bilaterally Gastrointestinal: Yes: WNL, Normal Bowel Sounds Genitourinary: Yes: WNL Musculoskeletal: Yes: WNL Extremities: Yes: Amputation Edema: No Integumentary: Yes: WNL Neurological: Yes: WNL, Alert, Oriented ...Motor Strength: WNL Psychiatric: Yes: WNL Labs: CBC, BMP 04/02/20 07:20 04/02/20 07:20 Problem List - Problems (1) S/P transmetatarsal amputation of foot Code(s): Z89.439 - ACQUIRED ABSENCE OF UNSPECIFIED FOOT (2) Cellulitis of left foot Code(s): L03.116 - CELLULITIS OF LEFT LOWER LIMB (3) Diabetic foot ulcer Code(s): E11.621 - TYPE 2 DIABETES MELLITUS WITH FOOT ULCER; L97.509 - NON- PRESSURE CHRONIC ULCER OTH PRT UNSP FOOT W UNSP SEVERITY (4) Gangrene of toe of left foot Code(s): I96 - GANGRENE, NOT ELSEWHERE CLASSIFIED (5) ILD (interstitial lung disease) Code(s): J84.9 - INTERSTITIAL PULMONARY DISEASE, UNSPECIFIED (6) PVD (peripheral vascular disease) Code(s): I73.9 - PERIPHERAL VASCULAR DISEASE, UNSPECIFIED (7) Painful amputation stump Code(s): T87.89 - OTHER COMPLICATIONS OF AMPUTATION STUMP; M79.609 - PAIN IN UNSPECIFIED LIMB (8) Pneumonia Code(s): J18.9 - PNEUMONIA, UNSPECIFIED ORGANISM Qualifiers: Laterality: left Lung location: lower lobe of lung (9) Sepsis due to cellulitis Code(s): L03.90 - CELLULITIS, UNSPECIFIED; A41.9 - SEPSIS, UNSPECIFIED ORGANISM (10) Shortness of breath Code(s): R06.02 - SHORTNESS OF BREATH (11) Status post amputation of left great toe Code(s): Z89.412 - ACQUIRED ABSENCE OF LEFT GREAT TOE (12) Toe pain Code(s): M79.676 - PAIN IN UNSPECIFIED TOE(S) (13) Hypercholesterolemia Code(s): E78.00 - PURE HYPERCHOLESTEROLEMIA, UNSPECIFIED (14) Hypertension Code(s): I10 - ESSENTIAL (PRIMARY) HYPERTENSION (15) Recurrent pulmonary embolism Code(s): I26.99 - OTHER PULMONARY EMBOLISM WITHOUT ACUTE COR PULMONALE (16) Rheumatoid arthritis Code(s): M06.9 - RHEUMATOID ARTHRITIS, UNSPECIFIED (17) Type 2 diabetes mellitus Code(s): E11.9 - TYPE 2 DIABETES MELLITUS WITHOUT COMPLICATIONS (18) Venous insufficiency Code(s): I87.2 - VENOUS INSUFFICIENCY (CHRONIC) (PERIPHERAL) Assessment/Plan Mr. Cummings is a 64-year-old male with past medical history of hypertension, hyperlipidemia, rheumatoid arthritis, GERD, JAMES, s/p PE, coronary artery di sease, diabetes with neuropathy, now admitted for left foot osteomyelitis; status post below-knee amputation. Plan: Cardiac castro stable f/u EKG (prolonged QT) Continue AC
[2020-04-03] MEDS ORDERED: INSULIN (NOVOLOG) ASPART 100 UNITS/ML 10ML VIAL ONE (11:20)
--- NOTE | 2020-04-03 12:46 | PN ---
Teaching Attending Note Name of Resident: Stas Villalobos ATTENDING PHYSICIAN STATEMENT I saw and evaluated the patient. I reviewed the resident's note and discussed the case with the resident. I agree with the resident's findings and plan as documented. SUBJECTIVE: Seen and examined at bedside. Discharge was held yesterday due to pending COVID test. COVID test is now negative. Patient is medically cleared for discharge to short-term rehab. OBJECTIVE Last Vital Signs Temp Pulse Resp BP Pulse Ox 98.3 F 94 H 18 120/68 97 04/03/20 09:00 04/03/20 09:00 04/03/20 09:00 04/03/20 09:00 04/03/20 09:00 PE: Per resident note Labs/Imaging: reviewed ASSESSMENT/PLAN 64-year-old male with past medical history of hypertension, diabetes, PVD, RA, GERD, iron deficiency anemia presents with left foot gangrene. 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 Patient had complicated postoperative course with prolonged white count elevation which improved with IV antibiotics. He is now medically cleared for discharge. He will be discharged on Augmentin and gabapentin for phantom limb pain in addition to his home medications.
--- NOTE | 2020-04-03 12:52 | PN ---
Progress Note, Physician History of Present Illness: stable no new issues - Current Medication List Current Medications: Active Medications Acetaminophen (Tylenol -) 325 mg PO Q4H PRN PRN Reason: FEVER Last Admin: 04/02/20 22:55 Dose: 325 mg Documented by: Albuterol Sulfate (Ventolin Hfa Inhaler -) 2 puff IH Q4H PRN PRN Reason: SHORTNESS OF BREATH Amino Acids (Prosource No Carb Liquid Pkt) 30 ml PO BID@0800,1730 [facility] Last Admin: 04/03/20 08:31 Dose: 30 ml Documented by: Amoxicillin/Clavulanate Potassium (Augmentin - 875mg Tablet) 1 tab PO BID@0800,1730 [facility] Last Admin: 04/03/20 08:31 Dose: 1 tab Documented by: Apixaban (Eliquis -) 5 mg PO BID [facility] Last Admin: 04/03/20 10:21 Dose: 5 mg Documented by: Atorvastatin Calcium (Lipitor -) 20 mg PO HS [facility] Last Admin: 04/02/20 21:40 Dose: 20 mg Documented by: Budesonide/Formoterol Fumarate (Symbicort 160/4.5mcg -) 2 puff IH BID [facility] Last Admin: 04/03/20 10:23 Dose: 2 puff Documented by: Calcium Carbonate (Os-Scott 500mg -) 500 mg PO DAILY [facility] Last Admin: 04/03/20 10:21 Dose: 500 mg Documented by: Docusate Sodium (Colace -) 100 mg PO TID [facility] Last Admin: 04/03/20 06:34 Dose: 100 mg Documented by: Ferrous Sulfate (Feosol -) 325 mg PO BIDWM [facility] Last Admin: 04/03/20 08:31 Dose: 325 mg Documented by: Folic Acid (Folic Acid -) 1 mg PO DAILY [facility] Last Admin: 04/03/20 10:21 Dose: 1 mg Documented by: Gabapentin (Neurontin -) 200 mg PO TID [facility] Last Admin: 04/03/20 06:34 Dose: 200 mg Documented by: Insulin Aspart (Novolog Vial Sliding Scale -) 1 vial SQ [facility]; Protocol Last Admin: 04/03/20 11:29 Dose: 2 units Documented by: Insulin Detemir (Levemir Vial) 10 units SQ BID@0700,2200 [facility] Last Admin: 04/03/20 08:31 Dose: 10 units Documented by: Leflunomide (Arava -) 10 mg PO DAILY [facility] Last Admin: 04/03/20 10:21 Dose: 10 mg Documented by: Loratadine (Claritin -) 10 mg PO DAILY [facility] Last Admin: 04/03/20 10:21 Dose: 10 mg Documented by: Losartan Potassium (Cozaar -) 25 mg PO DAILY [facility] Last Admin: 04/03/20 10:22 Dose: 25 mg Documented by: Methylprednisolone (Medrol -) 4 mg PO DAILY [facility] Last Admin: 04/03/20 10:22 Dose: 4 mg Documented by: Metoprolol Tartrate (Lopressor -) 25 mg PO DAILY [facility] Last Admin: 04/03/20 10:21 Dose: 25 mg Documented by: Multivitamins/Minerals/Vitamin C (Tab-A-Vit -) 1 tab PO DAILY [facility] Last Admin: 04/03/20 10:21 Dose: 1 tab Documented by: Ondansetron HCl (Zofran Injection) 4 mg IVPUSH Q6H PRN PRN Reason: NAUSEA AND/OR VOMITING Oxycodone HCl (Roxicodone -) 5 mg PO Q6H PRN PRN Reason: PAIN LEVEL 7 - 10 Last Admin: 04/03/20 06:34 Dose: 5 mg Documented by: Pantoprazole Sodium (Protonix -) 40 mg PO DAILY [facility] Last Admin: 04/03/20 10:21 Dose: 40 mg Documented by: - Objective Vital Signs: Vital Signs Temperature 98.3 F 04/03/20 09:00 Pulse Rate 94 H 04/03/20 09:00 Respiratory Rate 18 04/03/20 09:00 Blood Pressure 120/68 04/03/20 09:00 O2 Sat by Pulse Oximetry (%) 97 04/03/20 09:00 Constitutional: Yes: No Distress, Calm Cardiovascular: Yes: S1, S2 Respiratory: Yes: Regular, CTA Bilaterally Gastrointestinal: Yes: Normal Bowel Sounds, Soft Musculoskeletal: Yes: WNL Extremities: Yes: WNL Neurological: Yes: Alert, Oriented Psychiatric: Yes: Alert, Oriented Labs: CBC, BMP 04/02/20 07:20 04/02/20 07:20 Assessment/Plan 64 y.o. M w/ PMHx. of HTN, DM, PVD, RA, GERD, Iron Deficiency Anemia and Hx. of PE presented with L. foot gangrene. Pt. is s/p L. TMA L. foot TMA htn pna dm gerd h/o of pe plan continue oral abx as plannd rest as per the team
--- NOTE | 2020-04-03 13:02 | DS ---
Physical Exam: SUBJECTIVE: Patient seen and examined at bedside. Does not endorse acute complaints. Eager to be discharged. OBJECTIVE: Vital Signs Period Temp Pulse Resp BP Sys/Dawson Pulse Ox Last 24 Hr 97.7 F-98.4 F 79-94 18-20 98-122/61-77 96-100 PHYSICAL EXAM GENERAL: The patient is awake, alert, and fully oriented, in no acute distress. HEAD: Normal with no signs of trauma. EYES: PERRL, extraocular movements intact, sclera anicteric, conjunctiva clear. ENT: Ears normal, nares patent, oropharynx clear without exudates, moist mucous membranes. NECK: Trachea midline, full range of motion, supple. LUNGS: Breath sounds equal, clear to auscultation bilaterally, no wheezes, no crackles, no accessory muscle use. HEART: Regular rate and rhythm, S1, S2 without murmur, rub or gallop. ABDOMEN: Soft, nontender, nondistended, normoactive bowel sounds, no guarding, no rebound, no hepatosplenomegaly, no masses. EXTREMITIES: 2+ pulses, warm, well-perfused, no edema. NEUROLOGICAL: Cranial nerves II through XII grossly intact. Left lower extremity s/p below knee amputation. Dressing clean, dry, intact. PSYCH: Normal mood, normal affect. SKIN: Warm, dry, normal turgor, no rashes or lesions noted. LABS Laboratory Results - last 24 hr 04/01/20 04/02/20 04/02/20 15:00 07:20 16:34 Neutrophils % (Manual) 62.0 D Band Neutrophils % 4.0 Lymphocytes % (Manual) 19.0 D Monocytes % (Manual) 5 Eosinophils % (Manual) 7.0 H Basophils % (Manual) 2.0 Myelocytes % (Man) 1 D Promyelocytes % (Man) 0 Blast Cells % (Manual) 0 Nucleated RBC % 0 Metamyelocytes 0 D Hypochromia 0 Platelet Estimate Increased Polychromasia 1+ Poikilocytosis 0 Anisocytosis 0 Microcytosis 0 Macrocytosis 0 POC Glucometer 225 COVID-19 ([facility]) Not detected 04/02/20 04/03/20 04/03/20 20:59 06:33 11:17 Neutrophils % (Manual) Band Neutrophils % Lymphocytes % (Manual) Monocytes % (Manual) Eosinophils % (Manual) Basophils % (Manual) Myelocytes % (Man) Promyelocytes % (Man) Blast Cells % (Manual) Nucleated RBC % Metamyelocytes Hypochromia Platelet Estimate Polychromasia Poikilocytosis Anisocytosis Microcytosis Macrocytosis POC Glucometer 261 130 195 COVID-19 ([facility]) HOSPITAL COURSE: Date of Admission:03/15/20 Date of Discharge: 04/03/20 Patient is a 64 year old male with history of hypertension, diabetes mellitus, peripheral arterial disease, rheumatoid arthritis, iron deficiency anemia, pulmonary embolism, admitted for left foot gangrene. He evaluated by vascular surgery and underwent left TMA on 03/15/20 and left BKA on 03/22/20 and was started on IV Zosyn. Per the surgical pathology report, the infected portion had OM, abscess formation, and necrosis. Pt had a complicated postoperative course with prolonged leukocytosis which improved with Abx. His leukocytosis has been downtrending. His blood and urine cultures have been negative during this stay. CXR showed no acute pathology. Pt had wound care, podiatry as well as infectious disease consult. He is being discharged with gabapentin for phantom limb pain, Augmentin, continuing home medications. Pt is medically stabilized and discharged to [facility] with follow up with primary care physician, Vascular surgery, and Infectious disease physicians. Minutes to complete discharge: 36 Discharge Summary Problems reviewed: Yes Reason For Visit: NON-PRS CHRONIC ULCER OTH PRT LEFT FOOT Current Active Problems S/P transmetatarsal amputation of foot (Acute) Condition: Stable - Instructions Diet, Activity, Other Instructions: You came in for left foot pain. You were evaluate by the vascular surgeon and underwent amputations of your left foot. You are stable, and [facility]. We have made some medication changes: Take Antibiotic Augmentin 875mg twice daily for the next 4 days. Take Gabapentin 200mg three times daily for pain. Continue taking your other home medications as directed. Follow up with your primary care physician within one week of hospital discharge. Follow up with Vascular Surgeon Dr. Pearl, within two weeks of hospital discharge, Please see his discharge instructions below. Follow up with infectious disease physician Dr. Spangler within one week. Return to nearest Emergency Department if you experience worsening symptoms, subjective fevers, chills. shortness of breath, chest pain, palpitations, abdominal pain, nausea, vomiting. Post-operative Instructions Wound: Change dressing daily, keep dressing clean and dry. Apply xeroform, kerlix and henri wrap daily. Keep knee immobilizer intact. You may remove it only to participate in physical therapy. Sponge bath only, no showering. Check the incision daily after removal of the dressing for redness or drainage. If you note any redness or drainage, contact your surgeon immediately. Do not put creams or ointments on the wound until cleared by your surgeon. Diet/Self Care: Continue your regular diet. We recommend eating a nutritious diet as this will aid in wound healing. If you are on Aspirin or Clopidogrel (Plavix), you may resume these medications as directed. Increase your fiber intake if taking narcotic pain medications as constipation is a common side effect. Pain Relief: Take pain medication as prescribed. Do not drive, drink alcohol or operate heavy machinery while taking narcotic pain medications. If the pain medication you have been prescribed for pain contains Acetaminophen (Tylenol), do not take additional Tylenol with this pain medication. You should not exceed more than 3g (3000mg) of Tylenol in 24 hours as this can lead to liver damage or failure. Follow-up Please call the office to schedule your follow up appointment in 2 weeks. Call your doctors office or go to the ER immediately if you develop: Trouble breathing, chest tightness or shortness of breath Oral temperature greater than 100.5 F Excessive redness, swelling, or drainage at the incision site. Foul odor from the incision. Referrals: Torie Spangler MD [Staff Physician] - 1 Week Torres Pearl DO [Staff Physician] - 2 Weeks (follow up with Dr Pearl 2 weeks after surgery date) Disposition: RETIREMENT FACILITY - Home Medications Comprehensive Discharge Medication List: Ambulatory Orders Calcium Carbonate [Oysco-500] 500 mg PO DAILY 07/08/19 Ferrous Sulfate 1 tab PO BID 10/09/19 Apixaban [Eliquis -] 5 mg PO BID 01/30/20 Atorvastatin Ca [Lipitor] 20 mg PO HS 01/30/20 Insulin Glargine,Hum.rec.anlog [Basaglar Kwikpen U-100] 10 unit SQ HS 01/30/20 Insulin Lispro [Admelog] 10 unit SQ AC 01/30/20 Leflunomide 10 mg PO DAILY 01/30/20 Methylprednisolone [Medrol -] 4 mg PO DAILY 01/30/20 Metoprolol Tartrate 25 mg PO DAILY 01/30/20 Omeprazole 20 mg PO DAILY 01/30/20 Telmisartan 20 mg PO DAILY 01/30/20 metFORMIN HCL [Metformin ER Osmotic] 1,000 mg PO DAILY 01/30/20 Albuterol Sulfate Inhaler - [Ventolin HFA Inhaler -] 1 - 2 inh PO Q4H #1 inhaler 01/31/20 Multivitamin [Multiple Vitamins] 1 tab PO DAILY 02/02/20 Vitamin C 1 tab PO DAILY 02/02/20 Zinc 1 tab PO DAILY 02/02/20 Collagenase Clostridium Hist. [Santyl] 1 applic TP DAILY #90 oint...g. 02/16/20 Acetaminophen [Tylenol .Extra-Strength -] 500 mg PO Q8H 03/13/20 Cetirizine HCl 10 mg PO DAILY 03/13/20 Folic Acid 1 mg PO DAILY 03/13/20 Amox-Tr/K Cl [Augmentin 875-125mg Tablet -] 1 tab PO BID@0800,1730 tablet 04/03/20 Budesonide/Formeterol Fumarate [SYMBICORT 160/4.5mcg -] 2 puff IH BID inhaler 04/03/20 Gabapentin [Neurontin -] 200 mg PO TID capsule 04/03/20 This patient is new to me today: Yes Date on this admission: 04/02/20 Emergency Visit: Yes ED Registration Date: 03/15/20 Care time: The patient presented to the Emergency Department on the above date and was hospitalized for further evaluation of their emergent condition. Critical Care patient: No - Discharge Referral Referred to [facility] Med [facility] No ATTENDING PHYSICIAN STATEMENT I saw and evaluated the patient. I reviewed the resident's note and discussed the case with the resident. I agree with the resident's findings and plan as documented. SUBJECTIVE: OBJECTIVE: ASSESSMENT AND PLAN:
[2020-04-03 15:53] VITALS: BP 112/64; PULSE 91; TEMP 97.9
== END 2020-04-03 21:32 | DRG 791 ==
LOC: J2C 03-15 04:45 → EDSTATUS 03-15 08:00 → J8W 03-15 18:20 → J5S 03-28 18:45
PROVIDERS: ADMIT Surgery Vascular Surgery; ATTEND Internal Medicine
PROC: 0Y6N0ZB Detachment at Left Foot, Partial 2nd Ray, Open Approach (ICD-10-PCS; 2020-03-15)
PROC: 0Y6N0ZC Detachment at Left Foot, Partial 3rd Ray, Open Approach (ICD-10-PCS; 2020-03-15)
PROC: 0Y6N0ZD Detachment at Left Foot, Partial 4th Ray, Open Approach (ICD-10-PCS; 2020-03-15)
PROC: 0Y6N0ZF Detachment at Left Foot, Partial 5th Ray, Open Approach (ICD-10-PCS; 2020-03-15)
PROC: 0Y6N0Z9 Detachment at Left Foot, Partial 1st Ray, Open Approach (ICD-10-PCS; principal; 2020-03-15 08:42)
PROC: 0Y6G0ZZ Detachment at Left Knee Region, Open Approach (ICD-10-PCS; 2020-03-22)
PROC: 0Y6J0Z2 Detachment at Left Lower Leg, Mid, Open Approach (ICD-10-PCS; 2020-03-22)
DX: T81.89XA Other complications of procedures, not elsewhere classified, initial encounter (principal); T81.42XA Infection following a procedure, deep incisional surgical site, initial encounter; J44.9 Chronic obstructive pulmonary disease, unspecified; E11.69 Type 2 diabetes mellitus with other specified complication; M86.172 Other acute osteomyelitis, left ankle and foot; I10 Essential (primary) hypertension; E78.5 Hyperlipidemia, unspecified; J47.9 Bronchiectasis, uncomplicated; M06.9 Rheumatoid arthritis, unspecified; K21.9 Gastro-esophageal reflux disease without esophagitis; E11.65 Type 2 diabetes mellitus with hyperglycemia; E11.621 Type 2 diabetes mellitus with foot ulcer; L03.116 Cellulitis of left lower limb; D72.829 Elevated white blood cell count, unspecified; I25.10 Atherosclerotic heart disease of native coronary artery without angina pectoris; D50.9 Iron deficiency anemia, unspecified; D47.3 Essential (hemorrhagic) thrombocythemia; E11.42 Type 2 diabetes mellitus with diabetic polyneuropathy; A48.0 Gas gangrene; M86.672 Other chronic osteomyelitis, left ankle and foot; J18.9 Pneumonia, unspecified organism; D68.59 Other primary thrombophilia; J84.9 Interstitial pulmonary disease, unspecified; E11.52 Type 2 diabetes mellitus with diabetic peripheral angiopathy with gangrene; I70.262 Atherosclerosis of native arteries of extremities with gangrene, left leg; L97.529 Non-pressure chronic ulcer of other part of left foot with unspecified severity; Y83.9 Surgical procedure, unspecified as the cause of abnormal reaction of the patient, or of later complication, without mention of misadventure at the time of the procedure; E87.2 Acidosis
CPT/HCPCS: 36415; 71045-TC-FY; 71250-TC; 80048; 80053; 81003; 82272; 82728; 82962; 83540; 83550; 83605; 83735; 84100; 85025; 85651; 86140; 86850; 86900; 86901; 86922; 87040; 87086; 88305-TC; 88307-TC; 88311-TC; 93005; 93010; 94760; 97116-GP; J0131; J1756; U0003

== ENCOUNTER 2020-11-25 13:09 | Inpatient (IN) | payer OTHER ==
[2020-11-25] MEDS ORDERED: SODIUM CHLORIDE 1,715 ML IV ONE (15:27)
[2020-11-25] MEDS ORDERED: PIPERACILLIN/TAZOB 4.5 GM 4.5 GM in DEXTROSE 5%-WATER 100 ML IVPB ONE (16:12)
[2020-11-25] MEDS ORDERED: PIPERACILLIN/TAZOB 4.5 GM 4.5 GM/100 ML BAG IVPB ONE (17:07)
[2020-11-25 18:01] LABS: EOS % 1.2 % (0-4.5); HEMATOCRIT 40.5 % (35.4-49); HEMOGLOBIN 13.2 GM/dL (11.7-16.9); LYMPH % 9.6 % (8-40); MCH 29.3 pg (25.7-33.7); MCHC 32.5 g/dl (32.0-35.9); MEAN CELL VOLUME 90.2 fl (80-96); MEAN PLT VOLUME 9.6 fl (7.5-11.1); MONO % 7.4 % (3.8-10.2); NEUT % 80.8 % (42.8-82.8); PLATELET COUNT 348 K/MM3 (134-434); RBC 4.49 M/mm3 (4.00-5.60); RDW 13.8 % (11.9-15.9)
[2020-11-25 18:11] LABS: INR 1.18 (0.83-1.09); PROTHROMBIN TIME (PATIENT) 14.2 SEC (9.7-13.0)
[2020-11-25 18:14] LABS: ACTIVATED PTT 35.1 SECONDS (25.2-36.5)
[2020-11-25 18:25] LABS: CHLORIDE 105 mmol/L (98-107); SODIUM 137 mmol/L (136-145)
[2020-11-25 18:28] LABS: ALBUMIN 3.3 g/dl (3.4-5.0); ANION GAP 8 MMOL/L (8-16); BLOOD UREA NITROGEN 13.1 mg/dL (7-18); CO2 24 mmol/L (21-32); GLUCOSE,RANDOM 164 mg/dL (74-106)
[2020-11-25 18:31] LABS: PLATELET ESTIMATE NORMAL; SGOT/AST 19 U/L (15-37); SGPT/ALT 24 U/L (13-61)
[2020-11-25 18:32] LABS: BILIRUBIN,TOTAL 0.6 mg/dL (0.2-1); TOT PROT 7.5 g/dl (6.4-8.2)
[2020-11-25 18:34] LABS: ALK PHOS 83 U/L (45-117)
[2020-11-25] MEDS ORDERED: CLINDAMYCIN 600MG PREMIX IVPB 600 MG/50 ML BAG IVPB ONE ×2 (18:38→20:14)
[2020-11-25 20:59] LABS: URINE APPEARANCE CLEAR; URINE BILIRUBIN NEGATIVE (NEGATIVE); URINE COLOR YELLOW; URINE GLUCOSE (UA) NEGATIVE (NEGATIVE); URINE KETONE NEGATIVE (NEGATIVE); URINE LEUK ESTERASE NEGATIVE (NEGATIVE); URINE NITRITE NEGATIVE (NEGATIVE); URINE PROTEIN NEGATIVE (NEGATIVE); URINE UROBILINOGEN 0.2 mg/dL (0.2-1.0)
[2020-11-26] MEDS: ACETAMINOPHEN 325 MG TABLET (FP) PO PRN ×3 (01:50→18:35)
[2020-11-26] MEDS: CLINDAMYCIN 600MG PREMIX IVPB 600 MG/50 ML BAG IVPB SCH ×3 (01:52→17:25)
[2020-11-26] MEDS: INSULIN SLIDING SCALE (NOVOLOG) 1 VIAL SQ SCH ×5 (06:41→21:04)
[2020-11-26] MEDS: INSULIN (LEVEMIR) 100 UNITS/ML UNITS SQ SCH ×2 (07:43→21:04)
[2020-11-26 08:04] LABS: BASO % 1.1 % (0-2.0); EOS % 3.3 % (0-4.5); HEMATOCRIT 34.5 % (35.4-49); HEMOGLOBIN 11.6 GM/dL (11.7-16.9); LYMPH % 18.7 % (8-40); MCHC 33.6 g/dl (32.0-35.9); MEAN CELL VOLUME 89.3 fl (80-96); MEAN PLT VOLUME 8.4 fl (7.5-11.1); MONO % 8.2 % (3.8-10.2); NEUT % 68.7 % (42.8-82.8); PLATELET COUNT 301 K/MM3 (134-434); RBC 3.87 M/mm3 (4.00-5.60); RDW 13.6 % (11.9-15.9)
[2020-11-26 08:12] LABS: INR 1.13 (0.83-1.09); PROTHROMBIN TIME (PATIENT) 13.6 SEC (9.7-13.0)
[2020-11-26 08:15] LABS: ACTIVATED PTT 33.2 SECONDS (25.2-36.5)
[2020-11-26 08:26] LABS: BLOOD UREA NITROGEN 11.3 mg/dL (7-18); MAGNESIUM 1.9 mg/dL (1.8-2.4)
[2020-11-26 08:29] LABS: CREATININE 0.9 mg/dL (0.55-1.3)
[2020-11-26 08:30] LABS: PHOSPHOROUS 2.8 mg/dL (2.5-4.9)
[2020-11-26 08:31] LABS: BILIRUBIN,TOTAL 0.8 mg/dL (0.2-1); VENOUS BASE EXCESS -2.9 mmol/L (-2-2); VENOUS O2 SATURATION 74.3 % (70-80); VENOUS PCO2 48.6 mmHg (38-52)
[2020-11-26 08:32] LABS: VENOUS PH 7.305 (7.310-7.410)
[2020-11-26 08:44] LABS: ALBUMIN 2.5 g/dl (3.4-5.0)
[2020-11-26] MEDS: KCL 10 MEQ IVPB 10 MEQ/100 ML INFUS.BAG IVPB SCH ×3 (10:12→12:23)
[2020-11-26] MEDS ORDERED: PT OWN MED DRAWER 7, Y5N ONE (13:17)
[2020-11-26] MEDS: CEFAZOLIN 1 GM/D5W 1 GM/50 ML BAG IVPB SCH ×2 (13:30→18:27)
[2020-11-26] MEDS: ENOXAPARIN NA (PORCINE) 60 MG/0.6 ML DISP.SYRIN SQ SCH ×2 (13:31→21:06)
[2020-11-26] MEDS: MORPHINE SULFATE 2 MG/ML VIAL IVPUSH PRN (14:51)
[2020-11-26] MEDS ORDERED: ACETAMINOPHEN 1000 MG/100 ML VIAL (NON FORMULARY) IVPB ONE (20:36)
[2020-11-26] MEDS ORDERED: INSULIN (NOVOLOG) ASPART 100 UNITS/ML 10ML VIAL ONE (20:53)
[2020-11-27] MEDS: CEFAZOLIN 1 GM/D5W 1 GM/50 ML BAG IVPB SCH ×3 (01:10→17:01)
[2020-11-27] MEDS: CLINDAMYCIN 600MG PREMIX IVPB 600 MG/50 ML BAG IVPB SCH ×3 (01:10→17:01)
[2020-11-27] MEDS ORDERED: guaiFENesin/CODEINE 10 ML UNIT-DOSE CUPS PO ONE (01:47)
[2020-11-27] MEDS: BENZOCAINE/MENTH/CETYLPYRD CL 1 EACH LOZENGE MM PRN ×2 (01:54→10:29)
[2020-11-27] MEDS: ACETAMINOPHEN 325 MG TABLET (FP) PO PRN ×3 (05:52→19:13)
[2020-11-27] MEDS: INSULIN SLIDING SCALE (NOVOLOG) 1 VIAL SQ SCH ×4 (06:07→22:15)
[2020-11-27] MEDS ORDERED: INSULIN (NOVOLOG) ASPART 100 UNITS/ML 10ML VIAL ONE ×3 (06:55→20:46)
[2020-11-27 08:01] LABS: HEMOGLOBIN 11.7 GM/dL (11.7-16.9); MCH 29.8 pg (25.7-33.7); MCHC 33.5 g/dl (32.0-35.9); MEAN CELL VOLUME 89.2 fl (80-96); PLATELET COUNT 300 K/MM3 (134-434); RBC 3.92 M/mm3 (4.00-5.60); RDW 13.4 % (11.9-15.9)
[2020-11-27 08:55] LABS: ALBUMIN 2.5 g/dl (3.4-5.0); BLOOD UREA NITROGEN 11.8 mg/dL (7-18); CALCIUM 7.6 mg/dL (8.5-10.1)
[2020-11-27 09:01] LABS: BILIRUBIN,TOTAL 0.8 mg/dL (0.2-1); TOT PROT 5.9 g/dl (6.4-8.2)
[2020-11-27] MEDS: ENOXAPARIN NA (PORCINE) 60 MG/0.6 ML DISP.SYRIN SQ SCH ×2 (10:30→22:15)
[2020-11-27] MEDS: MORPHINE SULFATE 2 MG/ML VIAL IVPUSH PRN ×2 (11:12→16:54)
[2020-11-27] MEDS: guaiFENesin/D-METHORPHAN HB 10 ML UNIT-DOSE CUPS PO PRN ×2 (12:38→12:57)
[2020-11-27] MEDS ORDERED: VANCOMYCIN 1 GRAM (PRE-DOCKED) 1,000 MG/250 ML BAG IVPB ONE (17:47)
[2020-11-27] MEDS ORDERED: PT OWN MED DRAWER 7, Y5N ONE (20:46)
[2020-11-27] MEDS: INSULIN (LEVEMIR) 100 UNITS/ML UNITS SQ SCH (22:15)
[2020-11-28] MEDS: CLINDAMYCIN 600MG PREMIX IVPB 600 MG/50 ML BAG IVPB SCH ×2 (01:00→12:17)
[2020-11-28] MEDS: BENZOCAINE/MENTH/CETYLPYRD CL 1 EACH LOZENGE MM PRN ×2 (01:01→20:29)
[2020-11-28] MEDS: ACETAMINOPHEN 325 MG TABLET (FP) PO PRN ×4 (01:06→18:26)
[2020-11-28] MEDS ORDERED: PT OWN MED DRAWER 7, Y5N ONE ×4 (01:37→20:21)
[2020-11-28] MEDS: guaiFENesin/D-METHORPHAN HB 10 ML UNIT-DOSE CUPS PO PRN (01:39)
[2020-11-28] MEDS: CEFAZOLIN 1 GM/D5W 1 GM/50 ML BAG IVPB SCH ×2 (01:39→12:21)
[2020-11-28] MEDS: INSULIN SLIDING SCALE (NOVOLOG) 1 VIAL SQ SCH ×4 (06:19→21:30)
[2020-11-28 07:29] LABS: HEMATOCRIT 32.1 % (35.4-49); HEMOGLOBIN 10.8 GM/dL (11.7-16.9); MCHC 33.7 g/dl (32.0-35.9); MEAN PLT VOLUME 8.8 fl (7.5-11.1); PLATELET COUNT 269 K/MM3 (134-434); RBC 3.61 M/mm3 (4.00-5.60); RDW 13.1 % (11.9-15.9)
[2020-11-28 07:52] LABS: ALBUMIN 2.3 g/dl (3.4-5.0); BLOOD UREA NITROGEN 10.5 mg/dL (7-18); CALCIUM 7.4 mg/dL (8.5-10.1)
[2020-11-28 07:56] LABS: CREATININE 1.1 mg/dL (0.55-1.3)
[2020-11-28 07:57] LABS: BILIRUBIN,TOTAL 0.6 mg/dL (0.2-1); TOT PROT 5.6 g/dl (6.4-8.2)
[2020-11-28] MEDS: KCL 10 MEQ IVPB 10 MEQ/100 ML INFUS.BAG IVPB SCH ×3 (09:55→14:38)
[2020-11-28] MEDS: ENOXAPARIN NA (PORCINE) 60 MG/0.6 ML DISP.SYRIN SQ SCH (09:55)
[2020-11-28] MEDS: MORPHINE SULFATE 2 MG/ML VIAL IVPUSH PRN (10:07)
[2020-11-28] MEDS ORDERED: INSULIN (NOVOLOG) ASPART 100 UNITS/ML 10ML VIAL ONE (13:29)
[2020-11-28] MEDS ORDERED: DEXTROSE 5%-WATER - 50 ML IVPB ONE (18:07)
[2020-11-28] MEDS ORDERED: ceFAZolin SODIUM 1 GM VIAL ONE (18:07)
[2020-11-28] MEDS: CEFAZOLIN 1 GM in DEXTROSE 5%-WATER - 50 ML IVPB SCH (18:16)
[2020-11-28] MEDS: INSULIN (LEVEMIR) 100 UNITS/ML UNITS SQ SCH (21:31)
[2020-11-29] MEDS: ACETAMINOPHEN 325 MG TABLET (FP) PO PRN ×3 (00:25→23:53)
[2020-11-29] MEDS ORDERED: DEXTROSE 5%-WATER - 50 ML IVPB ONE ×3 (01:02→17:16)
[2020-11-29] MEDS ORDERED: ceFAZolin SODIUM 1 GM VIAL ONE ×3 (01:02→17:15)
[2020-11-29] MEDS: CEFAZOLIN 1 GM in DEXTROSE 5%-WATER - 50 ML IVPB SCH ×3 (01:06→17:20)
[2020-11-29] MEDS: MORPHINE SULFATE 2 MG/ML VIAL IVPUSH PRN ×5 (01:14→23:46)
[2020-11-29 06:24] LABS: HEMATOCRIT 35.1 % (35.4-49); HEMOGLOBIN 11.9 GM/dL (11.7-16.9); MCH 30.2 pg (25.7-33.7); MCHC 34.1 g/dl (32.0-35.9); MEAN CELL VOLUME 88.7 fl (80-96); MEAN PLT VOLUME 8.8 fl (7.5-11.1); PLATELET COUNT 296 K/MM3 (134-434); RBC 3.95 M/mm3 (4.00-5.60); RDW 13.3 % (11.9-15.9); WHITE BLOOD COUNT 12.3 K/mm3 (4.0-10.0)
[2020-11-29] MEDS: INSULIN SLIDING SCALE (NOVOLOG) 1 VIAL SQ SCH ×4 (06:39→21:42)
[2020-11-29 06:47] LABS: CALCIUM 7.6 mg/dL (8.5-10.1)
[2020-11-29 06:48] LABS: ALBUMIN 2.3 g/dl (3.4-5.0); BLOOD UREA NITROGEN 8.2 mg/dL (7-18)
[2020-11-29 06:52] LABS: BILIRUBIN,TOTAL 0.6 mg/dL (0.2-1)
[2020-11-29 06:53] LABS: TOT PROT 6.2 g/dl (6.4-8.2)
[2020-11-29] MEDS ORDERED: LIDOCAINE HCL 1%, 10 MG/ML (20ML VIAL) ONE (10:46)
[2020-11-29] MEDS: INSULIN (LEVEMIR) 100 UNITS/ML UNITS SQ SCH (21:43)
[2020-11-30] MEDS ORDERED: ceFAZolin SODIUM 1 GM VIAL ONE ×2 (01:09→10:25)
[2020-11-30] MEDS ORDERED: DEXTROSE 5%-WATER - 50 ML IVPB ONE ×3 (01:10→14:32)
[2020-11-30] MEDS: CEFAZOLIN 1 GM in DEXTROSE 5%-WATER - 50 ML IVPB SCH ×2 (01:55→10:56)
[2020-11-30] MEDS: ACETAMINOPHEN 325 MG TABLET (FP) PO PRN ×3 (05:46→18:40)
[2020-11-30] MEDS: MORPHINE SULFATE 2 MG/ML VIAL IVPUSH PRN ×3 (05:49→23:59)
[2020-11-30] MEDS: INSULIN SLIDING SCALE (NOVOLOG) 1 VIAL SQ SCH ×4 (06:06→21:47)
[2020-11-30 06:41] LABS: HEMATOCRIT 32.7 % (35.4-49); HEMOGLOBIN 11.2 GM/dL (11.7-16.9); MCH 30.1 pg (25.7-33.7); MCHC 34.2 g/dl (32.0-35.9); MEAN PLT VOLUME 8.7 fl (7.5-11.1); PLATELET COUNT 313 K/MM3 (134-434); RBC 3.71 M/mm3 (4.00-5.60); RDW 13.2 % (11.9-15.9); WHITE BLOOD COUNT 12.6 K/mm3 (4.0-10.0)
[2020-11-30 07:00] LABS: ALBUMIN 2.3 g/dl (3.4-5.0); CALCIUM 7.4 mg/dL (8.5-10.1)
[2020-11-30 07:01] LABS: BLOOD UREA NITROGEN 9.6 mg/dL (7-18)
[2020-11-30 07:03] LABS: CREATININE 0.9 mg/dL (0.55-1.3)
[2020-11-30 07:05] LABS: BILIRUBIN,TOTAL 0.6 mg/dL (0.2-1); TOT PROT 6.1 g/dl (6.4-8.2)
[2020-11-30] MEDS ORDERED: INSULIN (NOVOLOG) ASPART 100 UNITS/ML 10ML VIAL ONE (10:26)
[2020-11-30] MEDS: guaiFENesin/D-METHORPHAN HB 10 ML UNIT-DOSE CUPS PO PRN ×2 (12:32→21:47)
[2020-11-30] MEDS ORDERED: PIPERACILLIN/TAZOBACTAM 3.375 GM VIAL IVPB ONE (14:32)
[2020-11-30] MEDS: PIPERACILLIN/TAZOB 3.375 GM 3.375 GM in DEXTROSE 5%-WATER - 50 ML IVPB SCH ×2 (14:50→18:18)
[2020-11-30] MEDS: BENZOCAINE/MENTH/CETYLPYRD CL 1 EACH LOZENGE MM PRN ×2 (14:52→21:57)
[2020-11-30] MEDS: DOXYCYCLINE INJECTION 100 MG in DEXTROSE 5%-WATER 100 ML IVPB SCH ×2 (17:25→21:47)
[2020-11-30] MEDS ORDERED: DEXTROSE 5%-WATER 100 ML IVPB ONE (21:38)
[2020-11-30] MEDS ORDERED: DOXYCYCLINE HYCLATE 100 MG VIAL ONE (21:38)
[2020-11-30] MEDS: INSULIN (LEVEMIR) 100 UNITS/ML UNITS SQ SCH (21:47)
[2020-11-30] MEDS ORDERED: PT OWN MED DRAWER 7, Y5N ONE (21:54)
[2020-11-30] MEDS ORDERED: MAG HYDROX/AL HYDROX/SIMETH 30 ML UNIT-DOSE CUP PO PRN (22:13)
[2020-12-01] MEDS ORDERED: DEXTROSE 5%-WATER - 50 ML IVPB ONE ×3 (00:31→16:44)
[2020-12-01] MEDS ORDERED: PIPERACILLIN/TAZOBACTAM 3.375 GM VIAL IVPB ONE ×3 (00:31→16:44)
[2020-12-01] MEDS: ACETAMINOPHEN 325 MG TABLET (FP) PO PRN ×3 (00:33→13:32)
[2020-12-01] MEDS: PIPERACILLIN/TAZOB 3.375 GM 3.375 GM in DEXTROSE 5%-WATER - 50 ML IVPB SCH ×3 (01:44→18:29)
[2020-12-01] MEDS: MORPHINE SULFATE 2 MG/ML VIAL IVPUSH PRN ×2 (04:55→10:35)
[2020-12-01] MEDS: INSULIN SLIDING SCALE (NOVOLOG) 1 VIAL SQ SCH ×4 (06:20→22:34)
[2020-12-01] MEDS ORDERED: morphine SULFATE 4 MG/ML VIAL IVPUSH PRN (06:47)
[2020-12-01 07:40] LABS: BASO % 0.3 % (0-2.0); EOS % 4.5 % (0-4.5); HEMATOCRIT 31.8 % (35.4-49); MCH 30.4 pg (25.7-33.7); MCHC 34.4 g/dl (32.0-35.9); MEAN CELL VOLUME 88.5 fl (80-96); MEAN PLT VOLUME 8.6 fl (7.5-11.1); MONO % 5.7 % (3.8-10.2); NEUT % 75.5 % (42.8-82.8); PLATELET COUNT 331 K/MM3 (134-434)
[2020-12-01 07:51] LABS: CALCIUM 7.2 mg/dL (8.5-10.1)
[2020-12-01 07:52] LABS: ALBUMIN 2.3 g/dl (3.4-5.0); BLOOD UREA NITROGEN 8.3 mg/dL (7-18); MAGNESIUM 2.1 mg/dL (1.8-2.4)
[2020-12-01 07:55] LABS: PHOSPHOROUS 1.5 mg/dL (2.5-4.9)
[2020-12-01 07:56] LABS: BILIRUBIN,TOTAL 0.8 mg/dL (0.2-1)
[2020-12-01 07:57] LABS: TOT PROT 6.2 g/dl (6.4-8.2)
[2020-12-01] MEDS ORDERED: DOXYCYCLINE HYCLATE 100 MG VIAL ONE ×2 (10:24→22:25)
[2020-12-01] MEDS ORDERED: DEXTROSE 5%-WATER 100 ML IVPB ONE ×2 (10:24→22:26)
[2020-12-01] MEDS ORDERED: INSULIN (NOVOLOG) ASPART 100 UNITS/ML 10ML VIAL ONE (10:31)
[2020-12-01] MEDS: DOXYCYCLINE INJECTION 100 MG in DEXTROSE 5%-WATER 100 ML IVPB SCH ×2 (10:56→22:34)
[2020-12-01] MEDS ORDERED: ACETAMINOPHEN 325 MG TABLET (FP) PO ONE (19:00)
[2020-12-01] MEDS ORDERED: EPHEDRINE SULFATE/0.9% NACL/PF 50 MG/10 ML SYRINGE NR ONE (20:14)
[2020-12-01] MEDS ORDERED: SUCCINYLCHOLINE CHLORIDE 200 MG/10 ML SYRINGE ONE (20:14)
[2020-12-01] MEDS ORDERED: MIDAZOLAM HCL 2 MG/2 ML SINGLE DOSE VIAL ONE (20:15)
[2020-12-01] MEDS ORDERED: PROPOFOL 20 ML ONE (20:15)
[2020-12-01] MEDS ORDERED: KETAMINE HCL 200 MG/20 ML VIAL ONE (20:17)
[2020-12-01] MEDS ORDERED: LIDOCAINE HCL 2% (20ML MULTI-DOSE VIAL) ONE ×2 (20:27→20:28)
[2020-12-01] MEDS ORDERED: BUPIVACAINE HCL/PF 0.5% (5MG/ML) 10 ML VIAL IJ ONE (20:57)
[2020-12-01] MEDS ORDERED: MAG HYDROX/AL HYDROX/SIMETH 30 ML UNIT-DOSE CUP PO PRN (21:35)
[2020-12-01] MEDS: INSULIN (LEVEMIR) 100 UNITS/ML UNITS SQ SCH (22:35)
[2020-12-02] MEDS: MORPHINE SULFATE 2 MG/ML VIAL IVPUSH PRN ×4 (01:26→20:51)
[2020-12-02] MEDS ORDERED: PIPERACILLIN/TAZOBACTAM 3.375 GM VIAL IVPB ONE ×3 (01:56→17:17)
[2020-12-02] MEDS ORDERED: DEXTROSE 5%-WATER - 50 ML IVPB ONE ×3 (01:57→17:17)
[2020-12-02] MEDS: PIPERACILLIN/TAZOB 3.375 GM 3.375 GM in DEXTROSE 5%-WATER - 50 ML IVPB SCH ×3 (02:06→17:20)
[2020-12-02] MEDS: ACETAMINOPHEN 325 MG TABLET (FP) PO PRN ×2 (02:15→14:36)
[2020-12-02] MEDS ORDERED: PANTOPRAZOLE 40 MG TABLET PO ONE (02:20)
[2020-12-02] MEDS: INSULIN SLIDING SCALE (NOVOLOG) 1 VIAL SQ SCH ×4 (06:07→21:53)
[2020-12-02 07:18] LABS: BASO % 0.3 % (0-2.0); EOS % 5.3 % (0-4.5); HEMOGLOBIN 9.2 GM/dL (11.7-16.9); LYMPH % 10.8 % (8-40); MCH 30.1 pg (25.7-33.7); MCHC 34.1 g/dl (32.0-35.9); MEAN CELL VOLUME 88.4 fl (80-96); MEAN PLT VOLUME 8.4 fl (7.5-11.1); MONO % 6.8 % (3.8-10.2); NEUT % 76.8 % (42.8-82.8); PLATELET COUNT 311 K/MM3 (134-434); RBC 3.06 M/mm3 (4.00-5.60); WHITE BLOOD COUNT 15.3 K/mm3 (4.0-10.0)
[2020-12-02 07:33] LABS: CHLORIDE 102 mmol/L (98-107); SODIUM 133 mmol/L (136-145)
[2020-12-02 07:37] LABS: ANION GAP 7 MMOL/L (8-16); BLOOD UREA NITROGEN 7.3 mg/dL (7-18); CO2 24 mmol/L (21-32); GLUCOSE,RANDOM 205 mg/dL (74-106)
[2020-12-02 07:40] LABS: CREATININE 0.9 mg/dL (0.55-1.3); PHOSPHOROUS 1.5 mg/dL (2.5-4.9); SGOT/AST 35 U/L (15-37); SGPT/ALT 26 U/L (13-61)
[2020-12-02 07:42] LABS: TOT PROT 5.4 g/dl (6.4-8.2)
[2020-12-02 07:43] LABS: ALK PHOS 153 U/L (45-117)
[2020-12-02 07:48] LABS: CALCIUM 6.9 mg/dL (8.5-10.1)
[2020-12-02] MEDS ORDERED: NAPH,MB-DB/K PH,MBDB POWDER PACKET PO ONE (08:15)
[2020-12-02] MEDS ORDERED: DOXYCYCLINE HYCLATE 100 MG VIAL ONE ×3 (10:56→21:37)
[2020-12-02] MEDS ORDERED: DEXTROSE 5%-WATER 100 ML IVPB ONE ×3 (10:56→21:37)
[2020-12-02] MEDS ORDERED: INSULIN (NOVOLOG) ASPART 100 UNITS/ML 10ML VIAL ONE (10:58)
[2020-12-02] MEDS: DOXYCYCLINE INJECTION 100 MG in DEXTROSE 5%-WATER 100 ML IVPB SCH ×2 (10:58→21:39)
[2020-12-02] MEDS ORDERED: MORPHINE SULFATE 2 MG/ML VIAL IVPUSH PRN (12:26)
[2020-12-02] MEDS ORDERED: PT OWN MED DRAWER 7, Y5N ONE ×2 (20:48→21:36)
[2020-12-02] MEDS: INSULIN (LEVEMIR) 100 UNITS/ML UNITS SQ SCH (21:51)
[2020-12-03] MEDS ORDERED: PIPERACILLIN/TAZOBACTAM 3.375 GM VIAL IVPB ONE ×3 (02:57→17:02)
[2020-12-03] MEDS ORDERED: DEXTROSE 5%-WATER - 50 ML IVPB ONE ×3 (02:58→17:02)
[2020-12-03] MEDS: PIPERACILLIN/TAZOB 3.375 GM 3.375 GM in DEXTROSE 5%-WATER - 50 ML IVPB SCH ×3 (03:02→17:58)
[2020-12-03] MEDS: MORPHINE SULFATE 2 MG/ML VIAL IVPUSH PRN ×4 (05:24→22:45)
[2020-12-03] MEDS: ACETAMINOPHEN 325 MG TABLET (FP) PO PRN ×3 (05:33→20:11)
[2020-12-03] MEDS: INSULIN SLIDING SCALE (NOVOLOG) 1 VIAL SQ SCH ×4 (07:18→21:40)
[2020-12-03 07:56] LABS: CHLORIDE 102 mmol/L (98-107); SODIUM 133 mmol/L (136-145)
[2020-12-03 08:00] LABS: ALBUMIN 1.9 g/dl (3.4-5.0); ANION GAP 8 MMOL/L (8-16); BLOOD UREA NITROGEN 6.8 mg/dL (7-18); CO2 23 mmol/L (21-32); GLUCOSE,RANDOM 177 mg/dL (74-106)
[2020-12-03 08:01] LABS: HEMATOCRIT 26.4 % (35.4-49); HEMOGLOBIN 9.1 GM/dL (11.7-16.9); MCH 29.9 pg (25.7-33.7); MCHC 34.4 g/dl (32.0-35.9); MEAN CELL VOLUME 87.1 fl (80-96); MEAN PLT VOLUME 8.3 fl (7.5-11.1); PLATELET COUNT 389 K/MM3 (134-434); RBC 3.04 M/mm3 (4.00-5.60)
[2020-12-03 08:03] LABS: SGOT/AST 33 U/L (15-37); SGPT/ALT 22 U/L (13-61)
[2020-12-03 08:04] LABS: CREATININE 0.9 mg/dL (0.55-1.3)
[2020-12-03 08:05] LABS: TOT PROT 5.3 g/dl (6.4-8.2)
[2020-12-03 08:06] LABS: ALK PHOS 166 U/L (45-117)
[2020-12-03 08:28] LABS: CALCIUM 6.9 mg/dL (8.5-10.1)
[2020-12-03] MEDS ORDERED: DOXYCYCLINE HYCLATE 100 MG VIAL ONE (09:56)
[2020-12-03] MEDS ORDERED: DEXTROSE 5%-WATER 100 ML IVPB ONE (09:56)
[2020-12-03] MEDS: DOXYCYCLINE INJECTION 100 MG in DEXTROSE 5%-WATER 100 ML IVPB SCH (11:09)
[2020-12-03] MEDS: BENZOCAINE/MENTH/CETYLPYRD CL 1 EACH LOZENGE MM PRN (11:10)
[2020-12-03] MEDS: guaiFENesin/D-METHORPHAN HB 10 ML UNIT-DOSE CUPS PO PRN ×2 (11:10→21:39)
[2020-12-03 12:48] VITALS: BMI 20.4
[2020-12-03] MEDS ORDERED: VANCOMYCIN 1,000 MG in DEXTROSE 5%-WATER - 250 ML IVPB ONE (16:57)
[2020-12-03] MEDS: VANCOMYCIN 1 GRAM (PRE-DOCKED) 1,000 MG/250 ML BAG IVPB SCH (18:28)
[2020-12-03] MEDS ORDERED: INSULIN (NOVOLOG) ASPART 100 UNITS/ML 10ML VIAL ONE (21:19)
[2020-12-03] MEDS: APIXABAN 5 MG TABLET PO SCH (21:39)
[2020-12-03] MEDS: INSULIN (LEVEMIR) 100 UNITS/ML UNITS SQ SCH (21:39)
[2020-12-04] MEDS ORDERED: DEXTROSE 5%-WATER - 50 ML IVPB ONE ×3 (01:02→16:26)
[2020-12-04] MEDS ORDERED: PIPERACILLIN/TAZOBACTAM 3.375 GM VIAL IVPB ONE ×3 (01:02→16:26)
[2020-12-04] MEDS: PIPERACILLIN/TAZOB 3.375 GM 3.375 GM in DEXTROSE 5%-WATER - 50 ML IVPB SCH ×3 (01:07→18:14)
[2020-12-04] MEDS: ACETAMINOPHEN 325 MG TABLET (FP) PO PRN ×3 (01:12→16:35)
[2020-12-04] MEDS: MORPHINE SULFATE 2 MG/ML VIAL IVPUSH PRN ×3 (02:16→10:27)
[2020-12-04] MEDS: VANCOMYCIN 1 GRAM (PRE-DOCKED) 1,000 MG/250 ML BAG IVPB SCH ×2 (06:00→16:34)
[2020-12-04] MEDS: INSULIN SLIDING SCALE (NOVOLOG) 1 VIAL SQ SCH ×4 (06:28→21:34)
[2020-12-04] MEDS: INSULIN (LEVEMIR) 100 UNITS/ML UNITS SQ SCH ×2 (06:30→21:35)
[2020-12-04 07:10] LABS: HEMATOCRIT 26.9 % (35.4-49); HEMOGLOBIN 9.1 GM/dL (11.7-16.9); MCH 29.5 pg (25.7-33.7); MCHC 33.9 g/dl (32.0-35.9); MEAN CELL VOLUME 86.9 fl (80-96); MEAN PLT VOLUME 7.9 fl (7.5-11.1); PLATELET COUNT 499 K/MM3 (134-434); WHITE BLOOD COUNT 11.8 K/mm3 (4.0-10.0)
[2020-12-04 07:53] LABS: ALBUMIN 1.9 g/dl (3.4-5.0); BLOOD UREA NITROGEN 6.5 mg/dL (7-18)
[2020-12-04 07:54] LABS: CALCIUM 7.2 mg/dL (8.5-10.1)
[2020-12-04 07:55] LABS: CREATININE 0.7 mg/dL (0.55-1.3)
[2020-12-04 07:57] LABS: BILIRUBIN,TOTAL 0.9 mg/dL (0.2-1); TOT PROT 5.4 g/dl (6.4-8.2)
[2020-12-04] MEDS: guaiFENesin/D-METHORPHAN HB 10 ML UNIT-DOSE CUPS PO PRN (10:27)
[2020-12-04] MEDS: APIXABAN 5 MG TABLET PO SCH ×2 (10:28→21:36)
[2020-12-04] MEDS ORDERED: INSULIN (NOVOLOG) ASPART 100 UNITS/ML 10ML VIAL ONE (12:47)
[2020-12-04] MEDS: DOCUSATE SODIUM 100 MG CAPSULE (FP) PO SCH (12:49)
[2020-12-04] MEDS: oxyCODONE HCL 5 MG TABLET PO PRN ×2 (15:28→22:30)
[2020-12-04] MEDS ORDERED: IBUPROFEN 400 MG TABLET (FP) PO PRN (17:17)
[2020-12-04] MEDS: AMINO ACIDS/PROTEIN HYDROLYS 30 ML LIQUID.PKT PO SCH (18:14)
[2020-12-05] MEDS ORDERED: DEXTROSE 5%-WATER - 50 ML IVPB ONE ×3 (02:07→17:22)
[2020-12-05] MEDS ORDERED: PIPERACILLIN/TAZOBACTAM 3.375 GM VIAL IVPB ONE ×3 (02:07→17:22)
[2020-12-05] MEDS: PIPERACILLIN/TAZOB 3.375 GM 3.375 GM in DEXTROSE 5%-WATER - 50 ML IVPB SCH ×3 (02:18→18:03)
[2020-12-05] MEDS: MORPHINE SULFATE 2 MG/ML VIAL IVPUSH PRN ×4 (02:55→23:28)
[2020-12-05] MEDS: ACETAMINOPHEN 325 MG TABLET (FP) PO PRN ×2 (05:11→16:31)
[2020-12-05 05:53] LABS: HEMATOCRIT 23.6 % (35.4-49); HEMOGLOBIN 8.1 GM/dL (11.7-16.9); MCH 29.9 pg (25.7-33.7); MCHC 34.2 g/dl (32.0-35.9); MEAN CELL VOLUME 87.3 fl (80-96); MEAN PLT VOLUME 7.6 fl (7.5-11.1); PLATELET COUNT 581 K/MM3 (134-434); RBC 2.71 M/mm3 (4.00-5.60); WHITE BLOOD COUNT 13.1 K/mm3 (4.0-10.0)
[2020-12-05] MEDS: INSULIN (LEVEMIR) 100 UNITS/ML UNITS SQ SCH ×2 (06:06→21:19)
[2020-12-05] MEDS: INSULIN SLIDING SCALE (NOVOLOG) 1 VIAL SQ SCH ×4 (06:06→21:18)
[2020-12-05] MEDS: VANCOMYCIN 1 GRAM (PRE-DOCKED) 1,000 MG/250 ML BAG IVPB SCH (06:06)
[2020-12-05 06:22] LABS: CALCIUM 7.1 mg/dL (8.5-10.1)
[2020-12-05 06:23] LABS: ALBUMIN 1.9 g/dl (3.4-5.0); BLOOD UREA NITROGEN 17.6 mg/dL (7-18); MAGNESIUM 2.1 mg/dL (1.8-2.4)
[2020-12-05 06:26] LABS: CREATININE 2.2 mg/dL (0.55-1.3); PHOSPHOROUS 2.3 mg/dL (2.5-4.9)
[2020-12-05 06:27] LABS: BILIRUBIN,TOTAL 0.8 mg/dL (0.2-1); TOT PROT 5.6 g/dl (6.4-8.2)
[2020-12-05] MEDS ORDERED: ONDANSETRON 4 MG/2 ML VIAL ONE (07:35)
[2020-12-05] MEDS ORDERED: ONDANSETRON 4 MG/2 ML VIAL IVPUSH ONE (07:45)
[2020-12-05] MEDS ORDERED: NAPH,MB-DB/K PH,MBDB POWDER PACKET PO ONE (08:30)
[2020-12-05] MEDS: AMINO ACIDS/PROTEIN HYDROLYS 30 ML LIQUID.PKT PO SCH ×2 (09:57→18:04)
[2020-12-05] MEDS: guaiFENesin/D-METHORPHAN HB 10 ML UNIT-DOSE CUPS PO PRN (09:57)
[2020-12-05] MEDS: oxyCODONE HCL 5 MG TABLET PO PRN (09:57)
[2020-12-05] MEDS: APIXABAN 5 MG TABLET PO SCH ×2 (09:57→21:20)
[2020-12-05] MEDS: DOCUSATE SODIUM 100 MG CAPSULE (FP) PO SCH (09:57)
[2020-12-05] MEDS ORDERED: INSULIN (NOVOLOG) ASPART 100 UNITS/ML 10ML VIAL ONE ×3 (11:39→21:13)
[2020-12-05] MEDS ORDERED: SODIUM CHLORIDE 500 ML IV STA (12:41)
[2020-12-05] MEDS: SODIUM CHLORIDE 1,000 ML IV SCH (15:00)
[2020-12-05] MEDS ORDERED: VANCOMYCIN/WATER FOR INJ (PEG) 750 MG/150 ML BAG IVPB SCH (18:00)
[2020-12-06] MEDS ORDERED: DEXTROSE 5%-WATER - 50 ML IVPB ONE ×3 (00:57→15:56)
[2020-12-06] MEDS ORDERED: PIPERACILLIN/TAZOBACTAM 3.375 GM VIAL IVPB ONE ×3 (00:57→15:56)
[2020-12-06] MEDS: PIPERACILLIN/TAZOB 3.375 GM 3.375 GM in DEXTROSE 5%-WATER - 50 ML IVPB SCH ×3 (01:11→17:16)
[2020-12-06] MEDS: MORPHINE SULFATE 2 MG/ML VIAL IVPUSH PRN ×3 (03:56→15:59)
[2020-12-06] MEDS: SODIUM CHLORIDE 1,000 ML IV SCH ×2 (04:32→17:15)
[2020-12-06] MEDS: INSULIN (LEVEMIR) 100 UNITS/ML UNITS SQ SCH ×2 (06:40→23:33)
[2020-12-06] MEDS: INSULIN SLIDING SCALE (NOVOLOG) 1 VIAL SQ SCH ×4 (06:42→23:34)
[2020-12-06 07:35] LABS: HEMATOCRIT 27.7 % (35.4-49); HEMOGLOBIN 9.2 GM/dL (11.7-16.9); MCH 29.7 pg (25.7-33.7); MCHC 33.3 g/dl (32.0-35.9); MEAN PLT VOLUME 7.5 fl (7.5-11.1); PLATELET COUNT 626 K/MM3 (134-434); RBC 3.11 M/mm3 (4.00-5.60); RDW 13.3 % (11.9-15.9); WHITE BLOOD COUNT 13.6 K/mm3 (4.0-10.0)
[2020-12-06 07:50] LABS: ALBUMIN 1.9 g/dl (3.4-5.0); BLOOD UREA NITROGEN 27.2 mg/dL (7-18); CALCIUM 7.6 mg/dL (8.5-10.1)
[2020-12-06 07:54] LABS: CREATININE 2.8 mg/dL (0.55-1.3)
[2020-12-06 07:55] LABS: BILIRUBIN,TOTAL 0.7 mg/dL (0.2-1); TOT PROT 5.5 g/dl (6.4-8.2)
[2020-12-06] MEDS: DOCUSATE SODIUM 100 MG CAPSULE (FP) PO SCH (10:44)
[2020-12-06] MEDS: AMINO ACIDS/PROTEIN HYDROLYS 30 ML LIQUID.PKT PO SCH ×2 (10:44→17:15)
[2020-12-06] MEDS: APIXABAN 5 MG TABLET PO SCH ×2 (10:44→23:33)
[2020-12-06 14:14] LABS: PH,URINE 6.5 (5.0-8.0); URINE APPEARANCE CLEAR; URINE BILIRUBIN NEGATIVE (NEGATIVE); URINE COLOR YELLOW; URINE GLUCOSE (UA) NEGATIVE (NEGATIVE); URINE KETONE NEGATIVE (NEGATIVE); URINE LEUK ESTERASE NEGATIVE (NEGATIVE); URINE NITRITE NEGATIVE (NEGATIVE); URINE PROTEIN TRACE (NEGATIVE); URINE UROBILINOGEN 0.2 mg/dL (0.2-1.0)
[2020-12-06] MEDS: ACETAMINOPHEN 325 MG TABLET (FP) PO PRN (16:06)
[2020-12-06] MEDS ORDERED: morphine SULFATE 4 MG/ML VIAL IVPUSH PRN (20:10)
[2020-12-06] MEDS: morphine SULFATE 4 MG/ML VIAL IVPUSH PRN (20:42)
[2020-12-07] MEDS ORDERED: DEXTROSE 5%-WATER - 50 ML IVPB ONE ×2 (01:22→08:00)
[2020-12-07] MEDS ORDERED: PIPERACILLIN/TAZOBACTAM 3.375 GM VIAL IVPB ONE ×2 (01:22→07:59)
[2020-12-07] MEDS: morphine SULFATE 4 MG/ML VIAL IVPUSH PRN (01:30)
[2020-12-07] MEDS: PIPERACILLIN/TAZOB 3.375 GM 3.375 GM in DEXTROSE 5%-WATER - 50 ML IVPB SCH ×2 (01:35→09:12)
[2020-12-07] MEDS: ACETAMINOPHEN 325 MG TABLET (FP) PO PRN ×2 (02:16→11:38)
[2020-12-07] MEDS: guaiFENesin/D-METHORPHAN HB 10 ML UNIT-DOSE CUPS PO PRN (02:26)
[2020-12-07] MEDS: INSULIN (LEVEMIR) 100 UNITS/ML UNITS SQ SCH ×2 (07:02→22:01)
[2020-12-07] MEDS: INSULIN SLIDING SCALE (NOVOLOG) 1 VIAL SQ SCH ×4 (07:03→22:01)
[2020-12-07 07:30] LABS: HEMATOCRIT 23.1 % (35.4-49); HEMOGLOBIN 7.9 GM/dL (11.7-16.9); MCH 29.9 pg (25.7-33.7); MCHC 34.2 g/dl (32.0-35.9); MEAN CELL VOLUME 87.6 fl (80-96); MEAN PLT VOLUME 7.1 fl (7.5-11.1); PLATELET COUNT 600 K/MM3 (134-434); RBC 2.63 M/mm3 (4.00-5.60); RDW 13.4 % (11.9-15.9); WHITE BLOOD COUNT 11.4 K/mm3 (4.0-10.0)
[2020-12-07 07:56] LABS: CALCIUM 7.4 mg/dL (8.5-10.1)
[2020-12-07 07:57] LABS: ALBUMIN 1.7 g/dl (3.4-5.0); BLOOD UREA NITROGEN 25.5 mg/dL (7-18)
[2020-12-07 08:00] LABS: CREATININE 2.7 mg/dL (0.55-1.3)
[2020-12-07 08:02] LABS: BILIRUBIN,TOTAL 0.6 mg/dL (0.2-1)
[2020-12-07] MEDS: oxyCODONE HCL 5 MG TABLET PO PRN ×2 (08:21→21:52)
[2020-12-07] MEDS: AMINO ACIDS/PROTEIN HYDROLYS 30 ML LIQUID.PKT PO SCH ×2 (08:22→17:11)
[2020-12-07] MEDS: APIXABAN 5 MG TABLET PO SCH ×2 (09:12→21:52)
[2020-12-07] MEDS: DOCUSATE SODIUM 100 MG CAPSULE (FP) PO SCH (09:12)
[2020-12-07] MEDS ORDERED: LACTATED RINGERS SOLUTION 1,000 ML/1,000 ML INFUS.BAG IV SCH (13:45)
[2020-12-07] MEDS: SODIUM BICARBONATE 650 MG TABLET PO SCH (16:13)
[2020-12-07] MEDS: LACTATED RINGERS SOLUTION 1,000 ML/1,000 ML INFUS.BAG IV SCH (17:38)
[2020-12-08] MEDS: ACETAMINOPHEN 325 MG TABLET (FP) PO PRN ×2 (05:11→21:59)
[2020-12-08] MEDS: LACTATED RINGERS SOLUTION 1,000 ML/1,000 ML INFUS.BAG IV SCH ×2 (05:12→18:10)
[2020-12-08] MEDS: INSULIN SLIDING SCALE (NOVOLOG) 1 VIAL SQ SCH ×4 (06:10→21:51)
[2020-12-08 07:09] LABS: HEMATOCRIT 22.5 % (35.4-49); HEMOGLOBIN 7.7 GM/dL (11.7-16.9); MCH 29.6 pg (25.7-33.7); MCHC 34.3 g/dl (32.0-35.9); MEAN CELL VOLUME 86.4 fl (80-96); MEAN PLT VOLUME 7.2 fl (7.5-11.1); PLATELET COUNT 657 K/MM3 (134-434); RDW 13.4 % (11.9-15.9)
[2020-12-08 07:48] LABS: BLOOD UREA NITROGEN 24.4 mg/dL (7-18); CALCIUM 7.6 mg/dL (8.5-10.1)
[2020-12-08 07:49] LABS: MAGNESIUM 2.1 mg/dL (1.8-2.4)
[2020-12-08 07:52] LABS: CREATININE 2.3 mg/dL (0.55-1.3)
[2020-12-08] MEDS: INSULIN (LEVEMIR) 100 UNITS/ML UNITS SQ SCH ×3 (08:12→21:52)
[2020-12-08] MEDS: DOCUSATE SODIUM 100 MG CAPSULE (FP) PO SCH (10:42)
[2020-12-08] MEDS: SODIUM BICARBONATE 650 MG TABLET PO SCH (10:42)
[2020-12-08] MEDS: APIXABAN 5 MG TABLET PO SCH ×2 (10:42→21:51)
[2020-12-08] MEDS: AMINO ACIDS/PROTEIN HYDROLYS 30 ML LIQUID.PKT PO SCH ×2 (10:42→18:10)
[2020-12-08] MEDS: BENZOCAINE/MENTH/CETYLPYRD CL 1 EACH LOZENGE MM PRN (10:42)
[2020-12-08] MEDS: LINEZOLID 600 MG TABLET (RESTRICTED TO ID) PO SCH ×2 (10:43→21:52)
[2020-12-08] MEDS: oxyCODONE HCL 5 MG TABLET PO PRN ×2 (10:43→20:53)
[2020-12-09] MEDS ORDERED: INSULIN (NOVOLOG) ASPART 100 UNITS/ML 10ML VIAL ONE ×2 (06:22→20:50)
[2020-12-09] MEDS ORDERED: INSULIN (LEVEMIR) 100 UNITS/ML UNITS SQ ONE (06:22)
[2020-12-09] MEDS: oxyCODONE HCL 5 MG TABLET PO PRN ×2 (06:24→21:05)
[2020-12-09] MEDS: INSULIN (LEVEMIR) 100 UNITS/ML UNITS SQ SCH ×2 (06:25→21:05)
[2020-12-09] MEDS: INSULIN SLIDING SCALE (NOVOLOG) 1 VIAL SQ SCH ×4 (06:25→21:05)
[2020-12-09] MEDS: LACTATED RINGERS SOLUTION 1,000 ML/1,000 ML INFUS.BAG IV SCH ×2 (06:28→21:03)
[2020-12-09 08:18] LABS: HEMATOCRIT 25.2 % (35.4-49); HEMOGLOBIN 8.3 GM/dL (11.7-16.9); MCHC 32.9 g/dl (32.0-35.9); MEAN PLT VOLUME 7.2 fl (7.5-11.1); PLATELET COUNT 779 K/MM3 (134-434); RBC 2.86 M/mm3 (4.00-5.60); RDW 13.5 % (11.9-15.9); WHITE BLOOD COUNT 13.3 K/mm3 (4.0-10.0)
[2020-12-09 08:41] LABS: ALBUMIN 1.8 g/dl (3.4-5.0)
[2020-12-09 08:42] LABS: BLOOD UREA NITROGEN 21.4 mg/dL (7-18); CALCIUM 8.1 mg/dL (8.5-10.1); MAGNESIUM 1.8 mg/dL (1.8-2.4)
[2020-12-09 08:45] LABS: CREATININE 2.2 mg/dL (0.55-1.3); PHOSPHOROUS 3.8 mg/dL (2.5-4.9)
[2020-12-09 08:46] LABS: BILIRUBIN,TOTAL 0.6 mg/dL (0.2-1); TOT PROT 5.4 g/dl (6.4-8.2)
[2020-12-09] MEDS: SODIUM BICARBONATE 650 MG TABLET PO SCH (09:47)
[2020-12-09] MEDS: APIXABAN 5 MG TABLET PO SCH (09:47)
[2020-12-09] MEDS: guaiFENesin/D-METHORPHAN HB 10 ML UNIT-DOSE CUPS PO PRN ×2 (09:47→21:05)
[2020-12-09] MEDS: DOCUSATE SODIUM 100 MG CAPSULE (FP) PO SCH (09:47)
[2020-12-09] MEDS: LINEZOLID 600 MG TABLET (RESTRICTED TO ID) PO SCH ×2 (09:47→21:06)
[2020-12-09] MEDS: AMINO ACIDS/PROTEIN HYDROLYS 30 ML LIQUID.PKT PO SCH ×2 (09:47→16:46)
[2020-12-09] MEDS ORDERED: ONDANSETRON 4 MG/2 ML VIAL IVPUSH ONE (13:13)
[2020-12-09] MEDS ORDERED: ONDANSETRON 4 MG/2 ML VIAL ONE (13:14)
[2020-12-10] MEDS: INSULIN (LEVEMIR) 100 UNITS/ML UNITS SQ SCH ×2 (06:50→21:58)
[2020-12-10] MEDS: INSULIN SLIDING SCALE (NOVOLOG) 1 VIAL SQ SCH ×4 (06:51→21:58)
[2020-12-10 07:29] LABS: HEMATOCRIT 23.4 % (35.4-49); HEMOGLOBIN 7.8 GM/dL (11.7-16.9); MCH 29.2 pg (25.7-33.7); MCHC 33.1 g/dl (32.0-35.9); MEAN CELL VOLUME 88.2 fl (80-96); MEAN PLT VOLUME 7.2 fl (7.5-11.1); PLATELET COUNT 785 K/MM3 (134-434); RBC 2.66 M/mm3 (4.00-5.60); RDW 13.7 % (11.9-15.9); WHITE BLOOD COUNT 14.2 K/mm3 (4.0-10.0)
[2020-12-10 07:53] LABS: ALBUMIN 1.8 g/dl (3.4-5.0); BLOOD UREA NITROGEN 15.3 mg/dL (7-18); CALCIUM 8.1 mg/dL (8.5-10.1)
[2020-12-10 07:56] LABS: CREATININE 1.9 mg/dL (0.55-1.3)
[2020-12-10 07:57] LABS: BILIRUBIN,TOTAL 0.3 mg/dL (0.2-1); TOT PROT 5.2 g/dl (6.4-8.2)
[2020-12-10] MEDS: AMINO ACIDS/PROTEIN HYDROLYS 30 ML LIQUID.PKT PO SCH ×2 (08:50→16:40)
[2020-12-10] MEDS: LACTATED RINGERS SOLUTION 1,000 ML/1,000 ML INFUS.BAG IV SCH ×3 (08:50→23:29)
[2020-12-10] MEDS: oxyCODONE HCL 5 MG TABLET PO PRN ×2 (08:50→23:19)
[2020-12-10] MEDS: DOCUSATE SODIUM 100 MG CAPSULE (FP) PO SCH (09:06)
[2020-12-10] MEDS: SODIUM BICARBONATE 650 MG TABLET PO SCH (09:06)
[2020-12-10] MEDS: LINEZOLID 600 MG TABLET (RESTRICTED TO ID) PO SCH ×2 (09:06→21:55)
[2020-12-10] MEDS: ACETAMINOPHEN 325 MG TABLET (FP) PO PRN (16:40)
[2020-12-10] MEDS ORDERED: INSULIN (NOVOLOG) ASPART 100 UNITS/ML 10ML VIAL ONE (21:52)
[2020-12-10] MEDS: guaiFENesin/D-METHORPHAN HB 10 ML UNIT-DOSE CUPS PO PRN (23:29)
[2020-12-11] MEDS ORDERED: ONDANSETRON 4 MG/2 ML VIAL IVPUSH ONE (03:31)
[2020-12-11] MEDS: ACETAMINOPHEN 325 MG TABLET (FP) PO PRN ×2 (05:52→21:45)
[2020-12-11] MEDS: INSULIN (LEVEMIR) 100 UNITS/ML UNITS SQ SCH ×3 (06:11→21:26)
[2020-12-11] MEDS: INSULIN SLIDING SCALE (NOVOLOG) 1 VIAL SQ SCH ×4 (06:11→21:46)
[2020-12-11 06:49] LABS: HEMATOCRIT 23.2 % (35.4-49); HEMOGLOBIN 7.7 GM/dL (11.7-16.9); MCH 28.6 pg (25.7-33.7); MCHC 33.3 g/dl (32.0-35.9); MEAN PLT VOLUME 7.2 fl (7.5-11.1); PLATELET COUNT 793 K/MM3 (134-434); RDW 13.7 % (11.9-15.9); WHITE BLOOD COUNT 15.5 K/mm3 (4.0-10.0)
[2020-12-11 07:08] LABS: BLOOD UREA NITROGEN 12.6 mg/dL (7-18)
[2020-12-11 07:13] LABS: CREATININE 1.9 mg/dL (0.55-1.3)
[2020-12-11 08:53] LABS: N-TERMINAL BNP 4750.4 pg/ml (5-125)
[2020-12-11] MEDS ORDERED: APIXABAN 5 MG TABLET PO SCH (10:00)
[2020-12-11] MEDS: DOCUSATE SODIUM 100 MG CAPSULE (FP) PO SCH (10:22)
[2020-12-11] MEDS: AMINO ACIDS/PROTEIN HYDROLYS 30 ML LIQUID.PKT PO SCH ×2 (10:22→17:27)
[2020-12-11] MEDS: amLODIPine BESYLATE 2.5 MG TABLET (FP) PO SCH (10:22)
[2020-12-11] MEDS: LINEZOLID 600 MG TABLET (RESTRICTED TO ID) PO SCH ×2 (10:22→21:44)
[2020-12-11] MEDS: SODIUM BICARBONATE 650 MG TABLET PO SCH (10:22)
[2020-12-11] MEDS: oxyCODONE HCL 5 MG TABLET PO PRN (10:32)
[2020-12-11] MEDS: guaiFENesin/D-METHORPHAN HB 10 ML UNIT-DOSE CUPS PO PRN (10:32)
[2020-12-11] MEDS: NYSTATIN 500,000 UNITS/5 ML SUSPENSION PO SCH ×2 (11:13→17:27)
[2020-12-11] MEDS: LACTATED RINGERS SOLUTION 1,000 ML/1,000 ML INFUS.BAG IV SCH (17:27)
[2020-12-11] MEDS ORDERED: INSULIN (NOVOLOG) ASPART 100 UNITS/ML 10ML VIAL ONE (21:14)
[2020-12-11] MEDS: APIXABAN 2.5 MG TABLET PO SCH (21:44)
[2020-12-12] MEDS: guaiFENesin/D-METHORPHAN HB 10 ML UNIT-DOSE CUPS PO PRN ×2 (04:51→23:01)
[2020-12-12] MEDS: NYSTATIN 500,000 UNITS/5 ML SUSPENSION PO SCH ×5 (05:10→23:01)
[2020-12-12] MEDS: INSULIN (LEVEMIR) 100 UNITS/ML UNITS SQ SCH ×2 (06:09→21:12)
[2020-12-12] MEDS: ACETAMINOPHEN 325 MG TABLET (FP) PO PRN ×3 (06:10→21:11)
[2020-12-12] MEDS: INSULIN SLIDING SCALE (NOVOLOG) 1 VIAL SQ SCH ×4 (06:18→22:07)
[2020-12-12] MEDS: LACTATED RINGERS SOLUTION 1,000 ML/1,000 ML INFUS.BAG IV SCH (06:20)
[2020-12-12 07:59] LABS: HEMATOCRIT 22.5 % (35.4-49); HEMOGLOBIN 7.5 GM/dL (11.7-16.9); MCH 28.5 pg (25.7-33.7); MCHC 33.3 g/dl (32.0-35.9); MEAN CELL VOLUME 85.6 fl (80-96); PLATELET COUNT 814 K/MM3 (134-434); RBC 2.63 M/mm3 (4.00-5.60); RDW 13.6 % (11.9-15.9); WHITE BLOOD COUNT 13.2 K/mm3 (4.0-10.0)
[2020-12-12 08:24] LABS: BLOOD UREA NITROGEN 10.5 mg/dL (7-18); CALCIUM 7.7 mg/dL (8.5-10.1)
[2020-12-12 08:28] LABS: CREATININE 1.6 mg/dL (0.55-1.3)
[2020-12-12] MEDS ORDERED: POTASSIUM CHLORIDE ORAL LIQUID 20 MEQ/15 ML PO ONE (08:30)
[2020-12-12] MEDS: KCL 10 MEQ IVPB 10 MEQ/100 ML INFUS.BAG IVPB SCH ×3 (10:22→12:32)
[2020-12-12] MEDS: LINEZOLID 600 MG TABLET (RESTRICTED TO ID) PO SCH (10:23)
[2020-12-12] MEDS: APIXABAN 2.5 MG TABLET PO SCH ×2 (10:23→21:11)
[2020-12-12] MEDS: amLODIPine BESYLATE 2.5 MG TABLET (FP) PO SCH (10:23)
[2020-12-12] MEDS: DOCUSATE SODIUM 100 MG CAPSULE (FP) PO SCH (10:23)
[2020-12-12] MEDS: AMINO ACIDS/PROTEIN HYDROLYS 30 ML LIQUID.PKT PO SCH ×2 (10:23→16:57)
[2020-12-12] MEDS: morphine SULFATE 4 MG/ML VIAL IVPUSH PRN ×2 (11:30→20:02)
[2020-12-12] MEDS ORDERED: LACTATED RINGERS SOLUTION 1,000 ML/1,000 ML INFUS.BAG IV SCH (15:54)
[2020-12-12] MEDS ORDERED: INSULIN (NOVOLOG) ASPART 100 UNITS/ML 10ML VIAL ONE (20:34)
[2020-12-13 05:01] LABS: EPI CELLS 4 /uL (0-25.1); HYALINE CASTS 0 /uL (0-3.1); URINE APPEARANCE CLEAR; URINE BACTERIA 6 /uL (0-1359); URINE BILIRUBIN NEGATIVE (NEGATIVE); URINE COLOR YELLOW; URINE GLUCOSE (UA) NEGATIVE (NEGATIVE); URINE KETONE NEGATIVE (NEGATIVE); URINE LEUK ESTERASE NEGATIVE (NEGATIVE); URINE NITRITE NEGATIVE (NEGATIVE); URINE PROTEIN NEGATIVE (NEGATIVE); URINE RBC 14 /uL (0-23.9); URINE UROBILINOGEN 0.2 mg/dL (0.2-1.0); URINE WBC 3 /uL (0-25.8)
[2020-12-13] MEDS: ACETAMINOPHEN 325 MG TABLET (FP) PO PRN ×2 (05:55→16:50)
[2020-12-13] MEDS: NYSTATIN 500,000 UNITS/5 ML SUSPENSION PO SCH ×3 (05:55→17:12)
[2020-12-13] MEDS: INSULIN (LEVEMIR) 100 UNITS/ML UNITS SQ SCH ×2 (06:09→21:22)
[2020-12-13] MEDS: INSULIN SLIDING SCALE (NOVOLOG) 1 VIAL SQ SCH ×4 (06:09→21:23)
[2020-12-13 07:46] LABS: HEMATOCRIT 22.1 % (35.4-49); HEMOGLOBIN 7.4 GM/dL (11.7-16.9); MCHC 33.7 g/dl (32.0-35.9); MEAN CELL VOLUME 85.9 fl (80-96); MEAN PLT VOLUME 6.7 fl (7.5-11.1); PLATELET COUNT 708 K/MM3 (134-434); RBC 2.57 M/mm3 (4.00-5.60); RDW 13.8 % (11.9-15.9); WHITE BLOOD COUNT 9.9 K/mm3 (4.0-10.0)
[2020-12-13 08:01] LABS: CHLORIDE 100 mmol/L (98-107); SODIUM 134 mmol/L (136-145)
[2020-12-13 08:04] LABS: ALBUMIN 1.6 g/dl (3.4-5.0); CALCIUM 7.1 mg/dL (8.5-10.1)
[2020-12-13 08:05] LABS: BLOOD UREA NITROGEN 9.7 mg/dL (7-18); CO2 25 mmol/L (21-32); GLUCOSE,RANDOM 127 mg/dL (74-106)
[2020-12-13 08:08] LABS: CREATININE 1.6 mg/dL (0.55-1.3); SGOT/AST 30 U/L (15-37); SGPT/ALT 17 U/L (13-61)
[2020-12-13 08:09] LABS: BILIRUBIN,TOTAL 0.5 mg/dL (0.2-1); TOT PROT 4.8 g/dl (6.4-8.2)
[2020-12-13 08:11] LABS: ALK PHOS 161 U/L (45-117)
[2020-12-13 08:13] LABS: ANION GAP 8 MMOL/L (8-16)
[2020-12-13] MEDS ORDERED: POTASSIUM CHLORIDE ORAL LIQUID 20 MEQ/15 ML PO ONE ×2 (09:00→22:00)
[2020-12-13] MEDS: KCL 10 MEQ IVPB 10 MEQ/100 ML INFUS.BAG IVPB SCH ×3 (09:54→12:29)
[2020-12-13] MEDS: APIXABAN 2.5 MG TABLET PO SCH ×2 (09:55→21:21)
[2020-12-13] MEDS: guaiFENesin/D-METHORPHAN HB 10 ML UNIT-DOSE CUPS PO PRN (09:55)
[2020-12-13] MEDS: DOCUSATE SODIUM 100 MG CAPSULE (FP) PO SCH (09:55)
[2020-12-13] MEDS: amLODIPine BESYLATE 2.5 MG TABLET (FP) PO SCH (09:55)
[2020-12-13] MEDS: morphine SULFATE 4 MG/ML VIAL IVPUSH PRN ×2 (09:55→16:44)
[2020-12-13] MEDS: AMINO ACIDS/PROTEIN HYDROLYS 30 ML LIQUID.PKT PO SCH ×2 (09:55→16:44)
[2020-12-13] MEDS ORDERED: PT OWN MED DRAWER 7, Y5N ONE (21:12)
[2020-12-14] MEDS: morphine SULFATE 4 MG/ML VIAL IVPUSH PRN ×2 (00:40→06:12)
[2020-12-14] MEDS: NYSTATIN 500,000 UNITS/5 ML SUSPENSION PO SCH ×4 (00:40→17:02)
[2020-12-14] MEDS: INSULIN SLIDING SCALE (NOVOLOG) 1 VIAL SQ SCH ×4 (06:15→21:39)
[2020-12-14] MEDS: INSULIN (LEVEMIR) 100 UNITS/ML UNITS SQ SCH ×2 (06:16→21:39)
[2020-12-14 08:37] LABS: BASO % 2.2 % (0-2.0); EOS % 11.3 % (0-4.5); HEMOGLOBIN 7.9 GM/dL (11.7-16.9); LYMPH % 18.5 % (8-40); MCHC 34.1 g/dl (32.0-35.9); MEAN CELL VOLUME 84.9 fl (80-96); MEAN PLT VOLUME 6.8 fl (7.5-11.1); PLATELET COUNT 793 K/MM3 (134-434); RBC 2.71 M/mm3 (4.00-5.60); WHITE BLOOD COUNT 10.1 K/mm3 (4.0-10.0)
[2020-12-14 08:50] LABS: ALBUMIN 1.7 g/dl (3.4-5.0); CALCIUM 7.5 mg/dL (8.5-10.1); MAGNESIUM 1.5 mg/dL (1.8-2.4)
[2020-12-14 08:53] LABS: CREATININE 1.6 mg/dL (0.55-1.3); PHOSPHOROUS 2.7 mg/dL (2.5-4.9)
[2020-12-14 08:55] LABS: BILIRUBIN,TOTAL 0.4 mg/dL (0.2-1); TOT PROT 5.2 g/dl (6.4-8.2)
[2020-12-14] MEDS: POTASSIUM CHLORIDE TABS 20 MEQ TABLET.ER (FP) PO SCH ×2 (08:55→17:02)
[2020-12-14] MEDS: AMINO ACIDS/PROTEIN HYDROLYS 30 ML LIQUID.PKT PO SCH ×2 (08:56→17:02)
[2020-12-14] MEDS: guaiFENesin/D-METHORPHAN HB 10 ML UNIT-DOSE CUPS PO PRN (08:57)
[2020-12-14] MEDS: amLODIPine BESYLATE 2.5 MG TABLET (FP) PO SCH (09:03)
[2020-12-14] MEDS: APIXABAN 2.5 MG TABLET PO SCH ×2 (09:03→21:46)
[2020-12-14] MEDS: DOCUSATE SODIUM 100 MG CAPSULE (FP) PO SCH (09:03)
[2020-12-14 09:38] LABS: ANISOCYTOSIS 2+; MACROCYTOSIS 0; PLATELET ESTIMATE INCREASED
[2020-12-14] MEDS: ACETAMINOPHEN 325 MG TABLET (FP) PO PRN ×2 (11:30→17:26)
[2020-12-14] MEDS ORDERED: APIXABAN 5 MG TABLET PO SCH (17:48)
[2020-12-15] MEDS: ACETAMINOPHEN 325 MG TABLET (FP) PO PRN ×3 (00:41→19:39)
[2020-12-15] MEDS: NYSTATIN 500,000 UNITS/5 ML SUSPENSION PO SCH ×4 (00:53→17:36)
[2020-12-15] MEDS ORDERED: INSULIN (NOVOLOG) ASPART 100 UNITS/ML 10ML VIAL ONE (05:40)
[2020-12-15] MEDS: INSULIN (LEVEMIR) 100 UNITS/ML UNITS SQ SCH ×2 (06:10→21:07)
[2020-12-15] MEDS: INSULIN SLIDING SCALE (NOVOLOG) 1 VIAL SQ SCH ×4 (06:11→21:09)
[2020-12-15] MEDS: AMINO ACIDS/PROTEIN HYDROLYS 30 ML LIQUID.PKT PO SCH ×2 (09:33→17:35)
[2020-12-15] MEDS: amLODIPine BESYLATE 2.5 MG TABLET (FP) PO SCH (09:34)
[2020-12-15] MEDS: BENZOCAINE/MENTH/CETYLPYRD CL 1 EACH LOZENGE MM PRN (09:34)
[2020-12-15] MEDS: POTASSIUM CHLORIDE TABS 20 MEQ TABLET.ER (FP) PO SCH ×2 (09:34→17:35)
[2020-12-15] MEDS: APIXABAN 2.5 MG TABLET PO SCH ×2 (09:34→21:07)
[2020-12-15] MEDS: DOCUSATE SODIUM 100 MG CAPSULE (FP) PO SCH ×2 (09:34→11:40)
[2020-12-15] MEDS ORDERED: MAGNESIUM 2GM/50ML STERILE WATER IVPB IVPB ONE (13:00)
[2020-12-15] MEDS: BANATROL PLUS POWDER PACKET PO SCH ×2 (17:39→21:12)
[2020-12-15] MEDS: LACTOBACILLUS ACIDOPHILUS 1 TABLET PO SCH (21:07)
[2020-12-15] MEDS ORDERED: PT OWN MED DRAWER 7, Y5N ONE (21:10)
[2020-12-16] MEDS: NYSTATIN 500,000 UNITS/5 ML SUSPENSION PO SCH ×4 (00:41→17:00)
[2020-12-16] MEDS ORDERED: INSULIN (NOVOLOG) ASPART 100 UNITS/ML 10ML VIAL ONE (05:25)
[2020-12-16] MEDS: ACETAMINOPHEN 325 MG TABLET (FP) PO PRN ×2 (06:10→13:11)
[2020-12-16] MEDS: INSULIN (LEVEMIR) 100 UNITS/ML UNITS SQ SCH ×2 (06:11→22:01)
[2020-12-16] MEDS: INSULIN SLIDING SCALE (NOVOLOG) 1 VIAL SQ SCH ×4 (06:14→22:01)
[2020-12-16] MEDS: AMINO ACIDS/PROTEIN HYDROLYS 30 ML LIQUID.PKT PO SCH ×2 (08:29→16:34)
[2020-12-16 08:43] LABS: BASO % 1.4 % (0-2.0); EOS % 13.5 % (0-4.5); HEMATOCRIT 24.5 % (35.4-49); LYMPH % 17.4 % (8-40); MCH 27.9 pg (25.7-33.7); MCHC 32.8 g/dl (32.0-35.9); MEAN PLT VOLUME 6.9 fl (7.5-11.1); MONO % 9.8 % (3.8-10.2); NEUT % 57.9 % (42.8-82.8); PLATELET COUNT 759 K/MM3 (134-434); RBC 2.88 M/mm3 (4.00-5.60); RDW 14.2 % (11.9-15.9); WHITE BLOOD COUNT 12.9 K/mm3 (4.0-10.0)
[2020-12-16] MEDS: BANATROL PLUS POWDER PACKET PO SCH ×3 (08:45→22:36)
[2020-12-16] MEDS: amLODIPine BESYLATE 2.5 MG TABLET (FP) PO SCH (09:00)
[2020-12-16] MEDS: APIXABAN 2.5 MG TABLET PO SCH ×2 (09:00→22:01)
[2020-12-16 09:07] LABS: ALBUMIN 1.9 g/dl (3.4-5.0); CALCIUM 7.4 mg/dL (8.5-10.1); MAGNESIUM 1.8 mg/dL (1.8-2.4)
[2020-12-16 09:10] LABS: CREATININE 1.4 mg/dL (0.55-1.3)
[2020-12-16 09:11] LABS: PHOSPHOROUS 2.6 mg/dL (2.5-4.9)
[2020-12-16 09:12] LABS: BILIRUBIN,TOTAL 0.4 mg/dL (0.2-1); TOT PROT 5.6 g/dl (6.4-8.2)
[2020-12-16] MEDS ORDERED: CHOLESTYRAMINE/ASPARTAME 4 GM PACKET PO SCH (10:15)
[2020-12-16] MEDS ORDERED: PT OWN MED DRAWER 7, Y5N ONE (11:07)
[2020-12-16] MEDS: CHOLESTYRAMINE/ASPARTAME 4 GM PACKET PO SCH (16:34)
[2020-12-16] MEDS: LACTOBACILLUS ACIDOPHILUS 1 TABLET PO SCH (22:00)
[2020-12-16] MEDS: PSYLLIUM 5.85 GM PACKET PO SCH (22:02)
[2020-12-16] MEDS ORDERED: MAG HYDROX/AL HYDROX/SIMETH 30 ML UNIT-DOSE CUP PO ONE (22:33)
[2020-12-16] MEDS ORDERED: FAMOTIDINE 10 MG TABLET PO ONE (22:33)
[2020-12-17] MEDS: ACETAMINOPHEN 325 MG TABLET (FP) PO PRN ×3 (00:49→20:00)
[2020-12-17] MEDS: NYSTATIN 500,000 UNITS/5 ML SUSPENSION PO SCH ×4 (00:50→17:03)
[2020-12-17] MEDS ORDERED: PT OWN MED DRAWER 7, Y5N ONE ×2 (05:21→20:58)
[2020-12-17] MEDS: INSULIN SLIDING SCALE (NOVOLOG) 1 VIAL SQ SCH ×4 (06:19→21:40)
[2020-12-17] MEDS: BANATROL PLUS POWDER PACKET PO SCH ×3 (06:20→21:31)
[2020-12-17] MEDS: INSULIN (LEVEMIR) 100 UNITS/ML UNITS SQ SCH ×2 (06:22→21:41)
[2020-12-17 07:16] LABS: HEMATOCRIT 25.1 % (35.4-49); HEMOGLOBIN 8.4 GM/dL (11.7-16.9); MCH 28.3 pg (25.7-33.7); MCHC 33.4 g/dl (32.0-35.9); MEAN CELL VOLUME 84.9 fl (80-96); MEAN PLT VOLUME 6.9 fl (7.5-11.1); PLATELET COUNT 739 K/MM3 (134-434); RBC 2.96 M/mm3 (4.00-5.60); RDW 14.5 % (11.9-15.9); WHITE BLOOD COUNT 14.6 K/mm3 (4.0-10.0)
[2020-12-17 07:32] LABS: CALCIUM 7.6 mg/dL (8.5-10.1)
[2020-12-17 07:35] LABS: CREATININE 1.3 mg/dL (0.55-1.3)
[2020-12-17] MEDS: CHOLESTYRAMINE/ASPARTAME 4 GM PACKET PO SCH ×2 (10:19→16:48)
[2020-12-17] MEDS: amLODIPine BESYLATE 2.5 MG TABLET (FP) PO SCH (10:19)
[2020-12-17] MEDS: AMINO ACIDS/PROTEIN HYDROLYS 30 ML LIQUID.PKT PO SCH ×2 (10:19→16:47)
[2020-12-17] MEDS: APIXABAN 2.5 MG TABLET PO SCH (10:20)
[2020-12-17] MEDS: PSYLLIUM 5.85 GM PACKET PO SCH ×2 (10:21→21:32)
[2020-12-17] MEDS ORDERED: INSULIN (NOVOLOG) ASPART 100 UNITS/ML 10ML VIAL ONE (18:21)
[2020-12-17] MEDS ORDERED: MAG HYDROX/AL HYDROX/SIMETH 30 ML UNIT-DOSE CUP PO ONE (20:48)
[2020-12-17] MEDS ORDERED: FAMOTIDINE 10 MG TABLET PO ONE (20:48)
[2020-12-17] MEDS: LACTOBACILLUS ACIDOPHILUS 1 TABLET PO SCH (21:30)
[2020-12-18] MEDS: NYSTATIN 500,000 UNITS/5 ML SUSPENSION PO SCH ×5 (00:52→23:21)
[2020-12-18] MEDS: BANATROL PLUS POWDER PACKET PO SCH ×3 (05:38→21:26)
[2020-12-18] MEDS: INSULIN (LEVEMIR) 100 UNITS/ML UNITS SQ SCH ×2 (06:36→21:27)
[2020-12-18] MEDS: INSULIN SLIDING SCALE (NOVOLOG) 1 VIAL SQ SCH ×4 (06:37→21:38)
[2020-12-18 07:50] LABS: HEMATOCRIT 25.8 % (35.4-49); HEMOGLOBIN 8.6 GM/dL (11.7-16.9); MCH 28.2 pg (25.7-33.7); MCHC 33.3 g/dl (32.0-35.9); MEAN CELL VOLUME 84.7 fl (80-96); MEAN PLT VOLUME 6.9 fl (7.5-11.1); PLATELET COUNT 769 K/MM3 (134-434); RBC 3.05 M/mm3 (4.00-5.60); RDW 14.9 % (11.9-15.9)
[2020-12-18 08:06] LABS: CALCIUM 8.3 mg/dL (8.5-10.1)
[2020-12-18 08:07] LABS: ALBUMIN 2.1 g/dl (3.4-5.0); BLOOD UREA NITROGEN 14.2 mg/dL (7-18)
[2020-12-18 08:10] LABS: CREATININE 1.3 mg/dL (0.55-1.3)
[2020-12-18 08:12] LABS: BILIRUBIN,TOTAL 0.4 mg/dL (0.2-1)
[2020-12-18] MEDS ORDERED: SODIUM CHLORIDE 1,000 ML IV SCH ×4 (09:45→17:09)
[2020-12-18] MEDS: AMINO ACIDS/PROTEIN HYDROLYS 30 ML LIQUID.PKT PO SCH ×2 (10:22→17:44)
[2020-12-18] MEDS: amLODIPine BESYLATE 2.5 MG TABLET (FP) PO SCH (10:22)
[2020-12-18] MEDS: ACETAMINOPHEN 325 MG TABLET (FP) PO PRN ×2 (10:22→17:45)
[2020-12-18] MEDS: PSYLLIUM 5.85 GM PACKET PO SCH ×2 (10:23→21:38)
[2020-12-18] MEDS: CHOLESTYRAMINE/ASPARTAME 4 GM PACKET PO SCH ×2 (10:23→17:38)
[2020-12-18 15:12] LABS: STOOL OSMO 399 mOsmol/kg (Not Estab.)
[2020-12-18] MEDS ORDERED: HEPARIN NA (PORCINE) 5,000 UNITS/ML 1ML VIAL ONE (15:16)
[2020-12-18] MEDS ORDERED: LIDOCAINE HCL 1%, 10 MG/ML (20ML VIAL) ONE (15:16)
[2020-12-18] MEDS ORDERED: ONDANSETRON 4 MG/2 ML VIAL IVPUSH PRN ×2 (15:35→17:09)
[2020-12-18] MEDS ORDERED: ceFAZolin SODIUM 1 GM VIAL ONE (15:39)
[2020-12-18] MEDS ORDERED: MIDAZOLAM HCL 2 MG/2 ML SINGLE DOSE VIAL ONE (15:39)
[2020-12-18] MEDS ORDERED: ceFAZolin SODIUM 1 GM VIAL IVPB ONE (15:50)
[2020-12-18] MEDS ORDERED: LIDOCAINE HCL 1%, 10 MG/ML (20ML VIAL) PNB ONE ×2 (16:02)
[2020-12-18] MEDS ORDERED: guaiFENesin/D-METHORPHAN HB 10 ML UNIT-DOSE CUPS PO PRN (17:09)
[2020-12-18] MEDS ORDERED: BENZOCAINE/MENTH/CETYLPYRD CL 1 EACH LOZENGE MM PRN (17:09)
[2020-12-18] MEDS: LACTOBACILLUS ACIDOPHILUS 1 TABLET PO SCH (21:25)
[2020-12-18] MEDS: APIXABAN 2.5 MG TABLET PO SCH (21:26)
[2020-12-18] MEDS ORDERED: APIXABAN 2.5 MG TABLET PO SCH (22:00)
[2020-12-19] MEDS: INSULIN SLIDING SCALE (NOVOLOG) 1 VIAL SQ SCH ×4 (06:24→22:05)
[2020-12-19] MEDS: INSULIN (LEVEMIR) 100 UNITS/ML UNITS SQ SCH ×2 (06:25→22:03)
[2020-12-19] MEDS: BANATROL PLUS POWDER PACKET PO SCH ×4 (06:26→22:10)
[2020-12-19] MEDS: NYSTATIN 500,000 UNITS/5 ML SUSPENSION PO SCH ×3 (06:26→17:24)
[2020-12-19 07:25] LABS: HEMATOCRIT 24.9 % (35.4-49); HEMOGLOBIN 8.1 GM/dL (11.7-16.9); MCH 28.1 pg (25.7-33.7); MCHC 32.7 g/dl (32.0-35.9); MEAN PLT VOLUME 7.3 fl (7.5-11.1); PLATELET COUNT 673 K/MM3 (134-434); RBC 2.89 M/mm3 (4.00-5.60); RDW 15.1 % (11.9-15.9); WHITE BLOOD COUNT 14.8 K/mm3 (4.0-10.0)
[2020-12-19 07:52] LABS: CALCIUM 7.9 mg/dL (8.5-10.1)
[2020-12-19 07:53] LABS: ALBUMIN 2.1 g/dl (3.4-5.0); BLOOD UREA NITROGEN 15.5 mg/dL (7-18)
[2020-12-19 07:56] LABS: CREATININE 1.3 mg/dL (0.55-1.3)
[2020-12-19 07:57] LABS: BILIRUBIN,TOTAL 0.4 mg/dL (0.2-1); TOT PROT 5.7 g/dl (6.4-8.2)
[2020-12-19] MEDS ORDERED: PT OWN MED DRAWER 7, Y5N ONE (08:49)
[2020-12-19] MEDS: APIXABAN 2.5 MG TABLET PO SCH ×2 (09:08→22:03)
[2020-12-19] MEDS: amLODIPine BESYLATE 2.5 MG TABLET (FP) PO SCH (09:08)
[2020-12-19] MEDS: CHOLESTYRAMINE/ASPARTAME 4 GM PACKET PO SCH ×2 (09:08→17:27)
[2020-12-19] MEDS: AMINO ACIDS/PROTEIN HYDROLYS 30 ML LIQUID.PKT PO SCH ×2 (09:09→17:23)
[2020-12-19] MEDS: PSYLLIUM 5.85 GM PACKET PO SCH (09:09)
[2020-12-19] MEDS ORDERED: FAMOTIDINE 20 MG TABLET PO ONE (12:30)
[2020-12-19] MEDS: ACETAMINOPHEN 325 MG TABLET (FP) PO PRN (14:13)
[2020-12-19] MEDS ORDERED: MAG HYDROX/AL HYDROX/SIMETH -MYLANTA- ORAL SUSPENSION PO ONE (19:03)
[2020-12-19] MEDS: LACTOBACILLUS ACIDOPHILUS 1 TABLET PO SCH (22:02)
[2020-12-20] MEDS: NYSTATIN 500,000 UNITS/5 ML SUSPENSION PO SCH ×4 (00:41→17:55)
[2020-12-20] MEDS: BANATROL PLUS POWDER PACKET PO SCH ×3 (06:10→14:31)
[2020-12-20] MEDS: INSULIN (LEVEMIR) 100 UNITS/ML UNITS SQ SCH (06:10)
[2020-12-20] MEDS: INSULIN SLIDING SCALE (NOVOLOG) 1 VIAL SQ SCH ×3 (06:11→17:55)
[2020-12-20] MEDS ORDERED: INSULIN (NOVOLOG) ASPART 100 UNITS/ML 10ML VIAL ONE (06:19)
[2020-12-20 08:06] LABS: HEMATOCRIT 24.7 % (35.4-49); HEMOGLOBIN 8.1 GM/dL (11.7-16.9); MCH 28.2 pg (25.7-33.7); MCHC 32.8 g/dl (32.0-35.9); MEAN CELL VOLUME 86.2 fl (80-96); MEAN PLT VOLUME 7.5 fl (7.5-11.1); PLATELET COUNT 632 K/MM3 (134-434); RBC 2.87 M/mm3 (4.00-5.60); RDW 14.8 % (11.9-15.9)
[2020-12-20 08:17] LABS: BLOOD UREA NITROGEN 13.6 mg/dL (7-18)
[2020-12-20 08:20] LABS: CREATININE 1.2 mg/dL (0.55-1.3)
[2020-12-20] MEDS: CHOLESTYRAMINE/ASPARTAME 4 GM PACKET PO SCH ×2 (09:15→17:21)
[2020-12-20] MEDS: APIXABAN 2.5 MG TABLET PO SCH (09:15)
[2020-12-20] MEDS: AMINO ACIDS/PROTEIN HYDROLYS 30 ML LIQUID.PKT PO SCH ×2 (09:15→17:21)
[2020-12-20] MEDS: amLODIPine BESYLATE 2.5 MG TABLET (FP) PO SCH (09:15)
[2020-12-20] MEDS: ACETAMINOPHEN 325 MG TABLET (FP) PO PRN ×2 (09:24→17:21)
[2020-12-20] MEDS ORDERED: POTASSIUM CHLORIDE ORAL LIQUID 20 MEQ/15 ML PO ONE (09:30)
[2020-12-20 14:50] VITALS: BP 129/69; PULSE 90; TEMP 97.6
== END 2020-12-20 18:32 | disposition home health service (06) | DRG 710 ==
LOC: JER 13:09 → JERBED 19:08 → J7W 11-26 00:18
PROVIDERS: ADMIT Hospitalist; ATTEND Internal Medicine
PROC: 0H9MXZZ Drainage of Right Foot Skin, External Approach (ICD-10-PCS; 2020-12-01)
PROC: 0Y6M0Z9 Detachment at Right Foot, Partial 1st Ray, Open Approach (ICD-10-PCS; principal; 2020-12-01 20:00)
PROC: B41DZZZ Fluoroscopy of Aorta and Bilateral Lower Extremity Arteries (ICD-10-PCS; 2020-12-18)
DX: A41.89 Other specified sepsis (principal); L03.031 Cellulitis of right toe; K21.9 Gastro-esophageal reflux disease without esophagitis; E78.5 Hyperlipidemia, unspecified; I10 Essential (primary) hypertension; A49.02 Methicillin resistant Staphylococcus aureus infection, unspecified site; M86.9 Osteomyelitis, unspecified; L97.509 Non-pressure chronic ulcer of other part of unspecified foot with unspecified severity; I96 Gangrene, not elsewhere classified; E11.52 Type 2 diabetes mellitus with diabetic peripheral angiopathy with gangrene; N17.9 Acute kidney failure, unspecified; E11.69 Type 2 diabetes mellitus with other specified complication; U07.1 COVID-19; M86.171 Other acute osteomyelitis, right ankle and foot; D64.9 Anemia, unspecified; E87.6 Hypokalemia; E11.621 Type 2 diabetes mellitus with foot ulcer; J12.82 Pneumonia due to coronavirus disease 2019; M06.9 Rheumatoid arthritis, unspecified; E87.2 Acidosis; D72.829 Elevated white blood cell count, unspecified; F41.8 Other specified anxiety disorders; R64 Cachexia; Z68.20 Body mass index [BMI] 20.0-20.9, adult; I25.10 Atherosclerotic heart disease of native coronary artery without angina pectoris; R19.7 Diarrhea, unspecified
CPT/HCPCS: 36415; 71045-TC-FY; 73630-TC-RT-FY; 73718-TC-RT; 75635-TC; 76000-TC-FY; 76775-TC; 76856-TC; 80048; 80053; 81003; 82438; 82570; 82728; 82803; 82962; 83036; 83540; 83550; 83605; 83735; 83880; 83993; 84100; 84156; 84300; 84302; 84484; 84540; 84999; 85025; 85027; 85610; 85730; 86769; 86850; 86900; 86901; 87040; 87045; 87046; 87070; 87075; 87086; 87186; 87205; 87324; 87449; 88305-TC; 88311-TC; 93005; 93010; 93306-TC; 93922; 93926-TC; 94010; 94760; 97116-GP; 99285-25; C9803; G0463-25; G0480; J0131; J1644; Q9967; U0003; U0005

== ENCOUNTER 2021-02-11 11:28 | Inpatient (IN) | payer OTHER ==
[2021-02-11 11:36] VITALS: BMI 20.5
[2021-02-11] MEDS ORDERED: ACETAMINOPHEN 1000 MG/100 ML VIAL (NON FORMULARY) IVPB ONE (11:40)
[2021-02-11] MEDS ORDERED: ACETAMINOPHEN INJECTION 100 ML IVPB ONE (12:41)
[2021-02-11 12:57] LABS: BASO % 1.1 % (0-2.0); EOS % 3.7 % (0-4.5); HEMATOCRIT 32.6 % (35.4-49); HEMOGLOBIN 10.5 GM/dL (11.7-16.9); LYMPH % 12.2 % (8-40); MCH 27.2 pg (25.7-33.7); MCHC 32.1 g/dl (32.0-35.9); MEAN CELL VOLUME 84.6 fl (80-96); MEAN PLT VOLUME 7.9 fl (7.5-11.1); MONO % 7.4 % (3.8-10.2); NEUT % 75.6 % (42.8-82.8); PLATELET COUNT 340 10^3/uL (134-434); RBC 3.85 M/mm3 (4.00-5.60); RDW 19.1 % (11.9-15.9); WHITE BLOOD COUNT 13.8 K/mm3 (4.0-10.0)
[2021-02-11 13:06] LABS: INR 1.35 (0.83-1.09); PROTHROMBIN TIME (PATIENT) 16.5 SEC (9.7-13.0)
[2021-02-11 13:08] LABS: ACTIVATED PTT 32.7 SECONDS (25.2-36.5)
[2021-02-11 13:10] LABS: ALBUMIN 2.8 g/dl (3.4-5.0); BLOOD UREA NITROGEN 15.8 mg/dL (7-18); CALCIUM 8.3 mg/dL (8.5-10.1)
[2021-02-11 13:16] LABS: BILIRUBIN,TOTAL 0.4 mg/dL (0.2-1); TOT PROT 6.1 g/dl (6.4-8.2)
[2021-02-11] MEDS ORDERED: APIXABAN 2.5 MG TABLET ONE (23:01)
[2021-02-11] MEDS ORDERED: PIPERACILLIN/TAZOB 3.375 GM 3.375 GM/50 ML BAG IVPB ONE (23:02)
[2021-02-11] MEDS ORDERED: DOXYCYCLINE HYCLATE 100 MG CAPSULE PO ONE (23:02)
[2021-02-11] MEDS ORDERED: GABAPENTIN 100 MG CAPSULE ONE (23:02)
[2021-02-11] MEDS: DOXYCYCLINE HYCLATE 100 MG CAPSULE PO SCH (23:15)
[2021-02-11] MEDS: PIPERACILLIN/TAZOB 3.375 GM 3.375 GM in DEXTROSE 5%-WATER - 50 ML IVPB SCH (23:15)
[2021-02-11] MEDS: GABAPENTIN 100 MG CAPSULE PO SCH (23:15)
[2021-02-11] MEDS: INSULIN SLIDING SCALE (NOVOLOG) 1 VIAL SQ SCH (23:15)
[2021-02-11] MEDS: APIXABAN 5 MG TABLET PO SCH (23:15)
[2021-02-12] MEDS: INSULIN SLIDING SCALE (NOVOLOG) 1 VIAL SQ SCH ×5 (02:21→21:09)
[2021-02-12] MEDS ORDERED: PIPERACILLIN/TAZOB 3.375 GM 3.375 GM/50 ML BAG IVPB ONE ×2 (03:33→09:15)
[2021-02-12] MEDS: PIPERACILLIN/TAZOB 3.375 GM 3.375 GM in DEXTROSE 5%-WATER - 50 ML IVPB SCH ×3 (04:01→18:07)
[2021-02-12 06:53] LABS: BASO % 2.4 % (0-2.0); EOS % 3.4 % (0-4.5); HEMATOCRIT 31.7 % (35.4-49); HEMOGLOBIN 10.4 GM/dL (11.7-16.9); LYMPH % 20.8 % (8-40); MCH 27.7 pg (25.7-33.7); MCHC 32.9 g/dl (32.0-35.9); MEAN CELL VOLUME 84.2 fl (80-96); MEAN PLT VOLUME 7.8 fl (7.5-11.1); MONO % 8.2 % (3.8-10.2); NEUT % 65.2 % (42.8-82.8); PLATELET COUNT 333 10^3/uL (134-434); RBC 3.77 M/mm3 (4.00-5.60); RDW 18.9 % (11.9-15.9); WHITE BLOOD COUNT 10.3 K/mm3 (4.0-10.0)
[2021-02-12 07:16] LABS: ALBUMIN 2.7 g/dl (3.4-5.0); CALCIUM 8.2 mg/dL (8.5-10.1)
[2021-02-12 07:19] LABS: CREATININE 0.8 mg/dL (0.55-1.3)
[2021-02-12 07:20] LABS: PHOSPHOROUS 3.4 mg/dL (2.5-4.9)
[2021-02-12 07:21] LABS: BILIRUBIN,TOTAL 0.5 mg/dL (0.2-1); TOT PROT 6.1 g/dl (6.4-8.2)
[2021-02-12] MEDS: APIXABAN 5 MG TABLET PO SCH ×2 (09:12→21:06)
[2021-02-12] MEDS: GABAPENTIN 100 MG CAPSULE PO SCH ×2 (09:12→21:06)
[2021-02-12] MEDS ORDERED: DOXYCYCLINE HYCLATE 100 MG CAPSULE PO ONE (09:15)
[2021-02-12] MEDS ORDERED: SODIUM CHLORIDE 1,000 ML IV SCH (09:30)
[2021-02-12] MEDS: DOXYCYCLINE HYCLATE 100 MG CAPSULE PO SCH ×2 (09:32→18:09)
[2021-02-12] MEDS ORDERED: amLODIPine BESYLATE 5 MG TABLET (FP) PO SCH (10:00)
[2021-02-12] MEDS ORDERED: LORATADINE 10 MG TABLET PO SCH (10:00)
[2021-02-12] MEDS ORDERED: LEFLUNOMIDE 10 MG TABLET PO SCH (10:00)
[2021-02-12] MEDS ORDERED: FOLIC ACID 1 MG TABLET (FP) PO SCH (10:00)
[2021-02-12] MEDS ORDERED: FERROUS SO4 325 MG TABLET (FP) PO SCH (10:00)
[2021-02-12] MEDS ORDERED: ceFAZolin 2 GRAM PREMIX BAG IVPB ONE (11:50)
[2021-02-12] MEDS ORDERED: LIDOCAINE HCL 2% (50ML VIAL) INF ONE (11:52)
[2021-02-12] MEDS ORDERED: BACITRACIN 50,000 UNITS VIAL TP ONE (12:11)
[2021-02-12] MEDS ORDERED: BENZOIN/ALOE VERA/STORAX/TOLU 58 ML BOTTLE ONE (12:36)
[2021-02-12] MEDS ORDERED: ONDANSETRON 4 MG/2 ML VIAL IVPUSH PRN (14:25)
[2021-02-12] MEDS: oxyCODONE HCL 5 MG TABLET PO PRN (16:07)
[2021-02-12] MEDS ORDERED: DEXTROSE 5%-WATER - 50 ML IVPB ONE (17:45)
[2021-02-12] MEDS ORDERED: PIPERACILLIN/TAZOBACTAM 3.375 GM VIAL IVPB ONE (17:45)
[2021-02-12] MEDS: SODIUM CHLORIDE 1,000 ML IV SCH (18:20)
[2021-02-12] MEDS ORDERED: INSULIN (NOVOLOG) ASPART 100 UNITS/ML 10ML VIAL ONE (20:35)
[2021-02-13] MEDS: oxyCODONE HCL 5 MG TABLET PO PRN ×2 (00:05→11:25)
[2021-02-13] MEDS ORDERED: PIPERACILLIN/TAZOBACTAM 3.375 GM VIAL IVPB ONE ×3 (01:16→17:47)
[2021-02-13] MEDS ORDERED: DEXTROSE 5%-WATER - 50 ML IVPB ONE ×3 (01:17→17:47)
[2021-02-13] MEDS: PIPERACILLIN/TAZOB 3.375 GM 3.375 GM in DEXTROSE 5%-WATER - 50 ML IVPB SCH ×3 (01:55→18:12)
[2021-02-13] MEDS: INSULIN SLIDING SCALE (NOVOLOG) 1 VIAL SQ SCH ×4 (06:04→21:16)
[2021-02-13 08:30] LABS: BASO % 0.8 % (0-2.0); EOS % 0.2 % (0-4.5); HEMATOCRIT 31.1 % (35.4-49); HEMOGLOBIN 10.1 GM/dL (11.7-16.9); LYMPH % 12.1 % (8-40); MCH 27.6 pg (25.7-33.7); MCHC 32.4 g/dl (32.0-35.9); MEAN CELL VOLUME 85.2 fl (80-96); MEAN PLT VOLUME 8.5 fl (7.5-11.1); MONO % 6.6 % (3.8-10.2); NEUT % 80.3 % (42.8-82.8); PLATELET COUNT 326 10^3/uL (134-434); RBC 3.65 M/mm3 (4.00-5.60); WHITE BLOOD COUNT 11.5 K/mm3 (4.0-10.0)
[2021-02-13 08:51] LABS: CALCIUM 8.4 mg/dL (8.5-10.1)
[2021-02-13 08:52] LABS: ALBUMIN 2.5 g/dl (3.4-5.0)
[2021-02-13 08:56] LABS: CREATININE 0.8 mg/dL (0.55-1.3); PHOSPHOROUS 2.8 mg/dL (2.5-4.9)
[2021-02-13 08:58] LABS: BILIRUBIN,TOTAL 0.3 mg/dL (0.2-1); TOT PROT 5.6 g/dl (6.4-8.2)
[2021-02-13] MEDS ORDERED: PT OWN MED DRAWER 7, Y5N ONE (09:53)
[2021-02-13] MEDS: FOLIC ACID 1 MG TABLET (FP) PO SCH (10:17)
[2021-02-13] MEDS: DOXYCYCLINE HYCLATE 100 MG CAPSULE PO SCH ×2 (10:17→18:12)
[2021-02-13] MEDS: FERROUS SO4 325 MG TABLET (FP) PO SCH (10:18)
[2021-02-13] MEDS: amLODIPine BESYLATE 5 MG TABLET (FP) PO SCH (10:18)
[2021-02-13] MEDS: LORATADINE 10 MG TABLET PO SCH (10:18)
[2021-02-13] MEDS: APIXABAN 5 MG TABLET PO SCH ×2 (10:18→21:18)
[2021-02-13] MEDS: GABAPENTIN 100 MG CAPSULE PO SCH ×2 (10:18→21:17)
[2021-02-13] MEDS: LEFLUNOMIDE 10 MG TABLET PO SCH (10:19)
[2021-02-13] MEDS ORDERED: INSULIN (NOVOLOG) ASPART 100 UNITS/ML 10ML VIAL ONE (11:23)
[2021-02-13] MEDS ORDERED: ACETAMINOPHEN 1000 MG/100 ML VIAL (NON FORMULARY) IVPB PRN (12:24)
[2021-02-13] MEDS: INSULIN (LEVEMIR) 100 UNITS/ML UNITS SQ SCH (14:46)
[2021-02-13] MEDS: SODIUM CHLORIDE 1,000 ML IV SCH (16:26)
[2021-02-14] MEDS ORDERED: DEXTROSE 5%-WATER - 50 ML IVPB ONE ×3 (00:59→17:07)
[2021-02-14] MEDS ORDERED: PIPERACILLIN/TAZOBACTAM 3.375 GM VIAL IVPB ONE ×3 (00:59→17:07)
[2021-02-14] MEDS: PIPERACILLIN/TAZOB 3.375 GM 3.375 GM in DEXTROSE 5%-WATER - 50 ML IVPB SCH ×3 (01:17→17:12)
[2021-02-14] MEDS: INSULIN SLIDING SCALE (NOVOLOG) 1 VIAL SQ SCH ×4 (06:26→22:09)
[2021-02-14] MEDS: INSULIN (LEVEMIR) 100 UNITS/ML UNITS SQ SCH (06:26)
[2021-02-14 08:37] LABS: BASO % 0.9 % (0-2.0); EOS % 5.4 % (0-4.5); HEMATOCRIT 32.1 % (35.4-49); HEMOGLOBIN 10.6 GM/dL (11.7-16.9); LYMPH % 24.4 % (8-40); MCH 28.4 pg (25.7-33.7); MCHC 33.2 g/dl (32.0-35.9); MEAN CELL VOLUME 85.6 fl (80-96); MEAN PLT VOLUME 8.3 fl (7.5-11.1); MONO % 8.3 % (3.8-10.2); PLATELET COUNT 317 10^3/uL (134-434); RBC 3.75 M/mm3 (4.00-5.60); RDW 18.6 % (11.9-15.9); WHITE BLOOD COUNT 9.2 K/mm3 (4.0-10.0)
[2021-02-14 09:06] LABS: ALBUMIN 2.5 g/dl (3.4-5.0); BLOOD UREA NITROGEN 11.1 mg/dL (7-18); CALCIUM 8.2 mg/dL (8.5-10.1); MAGNESIUM 1.8 mg/dL (1.8-2.4)
[2021-02-14 09:09] LABS: CREATININE 0.8 mg/dL (0.55-1.3); PHOSPHOROUS 3.2 mg/dL (2.5-4.9)
[2021-02-14 09:10] LABS: BILIRUBIN,TOTAL 0.5 mg/dL (0.2-1)
[2021-02-14 09:11] LABS: TOT PROT 5.6 g/dl (6.4-8.2)
[2021-02-14] MEDS ORDERED: PT OWN MED DRAWER 7, Y5N ONE (09:20)
[2021-02-14] MEDS: GABAPENTIN 100 MG CAPSULE PO SCH ×2 (09:27→22:06)
[2021-02-14] MEDS: LORATADINE 10 MG TABLET PO SCH (09:27)
[2021-02-14] MEDS: LEFLUNOMIDE 10 MG TABLET PO SCH (09:28)
[2021-02-14] MEDS: amLODIPine BESYLATE 5 MG TABLET (FP) PO SCH (09:28)
[2021-02-14] MEDS: FERROUS SO4 325 MG TABLET (FP) PO SCH (09:28)
[2021-02-14] MEDS: FOLIC ACID 1 MG TABLET (FP) PO SCH (09:28)
[2021-02-14] MEDS: DOXYCYCLINE HYCLATE 100 MG CAPSULE PO SCH ×2 (09:28→17:18)
[2021-02-14] MEDS: APIXABAN 5 MG TABLET PO SCH ×2 (09:28→22:06)
[2021-02-14] MEDS ORDERED: POTASSIUM CHLORIDE TABS 20 MEQ TABLET.ER (FP) PO ONE (10:33)
[2021-02-14] MEDS ORDERED: INSULIN (NOVOLOG) ASPART 100 UNITS/ML 10ML VIAL ONE (11:18)
[2021-02-14] MEDS: oxyCODONE HCL 5 MG TABLET PO PRN (22:49)
[2021-02-15] MEDS ORDERED: PIPERACILLIN/TAZOBACTAM 3.375 GM VIAL IVPB ONE ×3 (02:44→16:42)
[2021-02-15] MEDS ORDERED: DEXTROSE 5%-WATER - 50 ML IVPB ONE ×3 (02:44→16:42)
[2021-02-15] MEDS: PIPERACILLIN/TAZOB 3.375 GM 3.375 GM in DEXTROSE 5%-WATER - 50 ML IVPB SCH ×3 (02:53→17:18)
[2021-02-15] MEDS: INSULIN SLIDING SCALE (NOVOLOG) 1 VIAL SQ SCH ×4 (06:12→21:13)
[2021-02-15] MEDS: INSULIN (LEVEMIR) 100 UNITS/ML UNITS SQ SCH (07:55)
[2021-02-15 09:29] LABS: CALCIUM 8.3 mg/dL (8.5-10.1)
[2021-02-15 09:30] LABS: ALBUMIN 2.7 g/dl (3.4-5.0); BLOOD UREA NITROGEN 12.5 mg/dL (7-18); MAGNESIUM 1.8 mg/dL (1.8-2.4)
[2021-02-15 09:33] LABS: CREATININE 0.9 mg/dL (0.55-1.3); PHOSPHOROUS 3.8 mg/dL (2.5-4.9)
[2021-02-15 09:34] LABS: BILIRUBIN,TOTAL 0.4 mg/dL (0.2-1)
[2021-02-15 09:35] LABS: TOT PROT 6.1 g/dl (6.4-8.2)
[2021-02-15 09:54] LABS: BASO % 2.1 % (0-2.0); EOS % 5.5 % (0-4.5); HEMOGLOBIN 11.6 GM/dL (11.7-16.9); LYMPH % 20.1 % (8-40); MCH 27.9 pg (25.7-33.7); MCHC 32.3 g/dl (32.0-35.9); MEAN CELL VOLUME 86.2 fl (80-96); MEAN PLT VOLUME 8.7 fl (7.5-11.1); MONO % 7.9 % (3.8-10.2); NEUT % 64.4 % (42.8-82.8); PLATELET COUNT 357 10^3/uL (134-434); RBC 4.17 M/mm3 (4.00-5.60); RDW 19.1 % (11.9-15.9); WHITE BLOOD COUNT 11.3 K/mm3 (4.0-10.0)
[2021-02-15] MEDS: LORATADINE 10 MG TABLET PO SCH (10:18)
[2021-02-15] MEDS: DOXYCYCLINE HYCLATE 100 MG CAPSULE PO SCH ×2 (10:18→17:18)
[2021-02-15] MEDS: FOLIC ACID 1 MG TABLET (FP) PO SCH (10:18)
[2021-02-15] MEDS: FERROUS SO4 325 MG TABLET (FP) PO SCH (10:18)
[2021-02-15] MEDS: APIXABAN 5 MG TABLET PO SCH ×2 (10:18→21:12)
[2021-02-15] MEDS: GABAPENTIN 100 MG CAPSULE PO SCH ×2 (10:18→21:12)
[2021-02-15] MEDS: amLODIPine BESYLATE 5 MG TABLET (FP) PO SCH (10:18)
[2021-02-15] MEDS: LEFLUNOMIDE 10 MG TABLET PO SCH (10:19)
[2021-02-15] MEDS: oxyCODONE HCL 5 MG TABLET PO PRN (10:31)
[2021-02-15] MEDS ORDERED: INSULIN (NOVOLOG) ASPART 100 UNITS/ML 10ML VIAL ONE (21:07)
[2021-02-15] MEDS: ACETAMINOPHEN 1000 MG/100 ML VIAL (NON FORMULARY) IVPB PRN (21:12)
[2021-02-16] MEDS ORDERED: PIPERACILLIN/TAZOBACTAM 3.375 GM VIAL IVPB ONE ×3 (01:13→18:05)
[2021-02-16] MEDS ORDERED: DEXTROSE 5%-WATER - 50 ML IVPB ONE ×3 (01:13→18:05)
[2021-02-16] MEDS: PIPERACILLIN/TAZOB 3.375 GM 3.375 GM in DEXTROSE 5%-WATER - 50 ML IVPB SCH ×3 (01:27→18:23)
[2021-02-16] MEDS: INSULIN SLIDING SCALE (NOVOLOG) 1 VIAL SQ SCH ×4 (06:26→21:07)
[2021-02-16] MEDS: INSULIN (LEVEMIR) 100 UNITS/ML UNITS SQ SCH (06:27)
[2021-02-16 07:22] LABS: BASO % 1.4 % (0-2.0); EOS % 8.7 % (0-4.5); HEMATOCRIT 35.2 % (35.4-49); HEMOGLOBIN 11.4 GM/dL (11.7-16.9); LYMPH % 17.4 % (8-40); MCH 27.8 pg (25.7-33.7); MCHC 32.4 g/dl (32.0-35.9); MEAN PLT VOLUME 8.3 fl (7.5-11.1); MONO % 8.5 % (3.8-10.2); PLATELET COUNT 330 10^3/uL (134-434); RBC 4.09 M/mm3 (4.00-5.60); RDW 18.9 % (11.9-15.9); WHITE BLOOD COUNT 9.2 K/mm3 (4.0-10.0)
[2021-02-16 07:34] LABS: CALCIUM 8.2 mg/dL (8.5-10.1)
[2021-02-16 07:35] LABS: BLOOD UREA NITROGEN 11.3 mg/dL (7-18)
[2021-02-16] MEDS: FOLIC ACID 1 MG TABLET (FP) PO SCH (09:24)
[2021-02-16] MEDS: LORATADINE 10 MG TABLET PO SCH (09:24)
[2021-02-16] MEDS: DOXYCYCLINE HYCLATE 100 MG CAPSULE PO SCH ×2 (09:24→18:23)
[2021-02-16] MEDS: APIXABAN 5 MG TABLET PO SCH ×2 (09:24→21:07)
[2021-02-16] MEDS: GABAPENTIN 100 MG CAPSULE PO SCH ×2 (09:24→21:07)
[2021-02-16] MEDS: amLODIPine BESYLATE 5 MG TABLET (FP) PO SCH (09:24)
[2021-02-16] MEDS: LEFLUNOMIDE 10 MG TABLET PO SCH (09:24)
[2021-02-16] MEDS: FERROUS SO4 325 MG TABLET (FP) PO SCH (09:24)
[2021-02-16] MEDS: ACETAMINOPHEN 1000 MG/100 ML VIAL (NON FORMULARY) IVPB PRN (09:31)
[2021-02-16] MEDS ORDERED: INSULIN (LEVEMIR) 100 UNITS/ML UNITS SQ ONE (18:31)
[2021-02-16] MEDS ORDERED: INSULIN (NOVOLOG) ASPART 100 UNITS/ML 10ML VIAL ONE ×2 (18:31→20:52)
[2021-02-16] MEDS ORDERED: ACETAMINOPHEN 1000 MG/100 ML VIAL (NON FORMULARY) IVPB ONE (21:25)
[2021-02-17] MEDS ORDERED: DEXTROSE 5%-WATER - 50 ML IVPB ONE ×2 (01:39→10:06)
[2021-02-17] MEDS ORDERED: PIPERACILLIN/TAZOBACTAM 3.375 GM VIAL IVPB ONE ×2 (01:39→10:06)
[2021-02-17] MEDS: PIPERACILLIN/TAZOB 3.375 GM 3.375 GM in DEXTROSE 5%-WATER - 50 ML IVPB SCH ×2 (02:01→10:26)
[2021-02-17] MEDS: INSULIN SLIDING SCALE (NOVOLOG) 1 VIAL SQ SCH ×4 (06:03→21:21)
[2021-02-17] MEDS: INSULIN (LEVEMIR) 100 UNITS/ML UNITS SQ SCH (06:04)
[2021-02-17 08:04] LABS: HEMATOCRIT 35.7 % (35.4-49); HEMOGLOBIN 11.8 GM/dL (11.7-16.9); PLATELET COUNT 306 10^3/uL (134-434); RDW 18.5 % (11.9-15.9); WHITE BLOOD COUNT 8.4 K/mm3 (4.0-10.0)
[2021-02-17 08:16] LABS: INR 1.48 (0.83-1.09)
[2021-02-17 08:25] LABS: CALCIUM 8.1 mg/dL (8.5-10.1)
[2021-02-17 08:26] LABS: ALBUMIN 2.4 g/dl (3.4-5.0); BLOOD UREA NITROGEN 11.2 mg/dL (7-18)
[2021-02-17 08:29] LABS: CREATININE 0.9 mg/dL (0.55-1.3)
[2021-02-17 08:30] LABS: BILIRUBIN,TOTAL 0.4 mg/dL (0.2-1)
[2021-02-17 08:31] LABS: TOT PROT 5.6 g/dl (6.4-8.2)
[2021-02-17] MEDS ORDERED: PT OWN MED DRAWER 7, Y5N ONE ×2 (10:06→11:36)
[2021-02-17] MEDS: GABAPENTIN 100 MG CAPSULE PO SCH ×2 (10:28→21:22)
[2021-02-17] MEDS: LEFLUNOMIDE 10 MG TABLET PO SCH (10:28)
[2021-02-17] MEDS: LORATADINE 10 MG TABLET PO SCH (10:29)
[2021-02-17] MEDS: DOXYCYCLINE HYCLATE 100 MG CAPSULE PO SCH ×2 (10:29→17:02)
[2021-02-17] MEDS: FERROUS SO4 325 MG TABLET (FP) PO SCH (10:29)
[2021-02-17] MEDS: amLODIPine BESYLATE 5 MG TABLET (FP) PO SCH (10:29)
[2021-02-17] MEDS: APIXABAN 5 MG TABLET PO SCH ×2 (10:29→21:22)
[2021-02-17] MEDS: FOLIC ACID 1 MG TABLET (FP) PO SCH (10:29)
[2021-02-17] MEDS ORDERED: INSULIN (NOVOLOG) ASPART 100 UNITS/ML 10ML VIAL ONE (11:37)
[2021-02-17] MEDS ORDERED: POTASSIUM CHLORIDE TABS 20 MEQ TABLET.ER (FP) PO ONE (11:45)
[2021-02-17] MEDS: PANTOPRAZOLE 40 MG TABLET PO SCH (11:46)
[2021-02-17] MEDS: methylPREDNISolone 4 MG TABLET PO SCH (12:45)
[2021-02-17] MEDS ORDERED: DEXTROSE 5%-WATER 100 ML IVPB ONE (14:46)
[2021-02-17] MEDS: CEFTRIAXONE 2 GM in DEXTROSE 5%-WATER 100 ML IVPB SCH (14:54)
[2021-02-17] MEDS: ACETAMINOPHEN 325 MG TABLET (FP) PO PRN (17:05)
[2021-02-18] MEDS: ACETAMINOPHEN 325 MG TABLET (FP) PO PRN (05:11)
[2021-02-18] MEDS: INSULIN SLIDING SCALE (NOVOLOG) 1 VIAL SQ SCH (06:35)
[2021-02-18] MEDS: INSULIN (LEVEMIR) 100 UNITS/ML UNITS SQ SCH (06:35)
[2021-02-18 07:33] LABS: BASO % 1.1 % (0-2.0); EOS % 6.3 % (0-4.5); HEMATOCRIT 33.2 % (35.4-49); HEMOGLOBIN 10.9 GM/dL (11.7-16.9); LYMPH % 21.1 % (8-40); MCH 28.3 pg (25.7-33.7); MEAN CELL VOLUME 85.7 fl (80-96); MEAN PLT VOLUME 8.1 fl (7.5-11.1); MONO % 11.3 % (3.8-10.2); NEUT % 60.2 % (42.8-82.8); PLATELET COUNT 297 10^3/uL (134-434); RBC 3.87 M/mm3 (4.00-5.60); RDW 18.1 % (11.9-15.9)
[2021-02-18 07:56] LABS: ALBUMIN 2.5 g/dl (3.4-5.0); BLOOD UREA NITROGEN 12.7 mg/dL (7-18)
[2021-02-18 07:59] LABS: CREATININE 0.8 mg/dL (0.55-1.3); PHOSPHOROUS 2.5 mg/dL (2.5-4.9)
[2021-02-18 08:01] LABS: BILIRUBIN,TOTAL 0.4 mg/dL (0.2-1); TOT PROT 5.8 g/dl (6.4-8.2)
[2021-02-18] MEDS ORDERED: DEXTROSE 5%-WATER 100 ML IVPB ONE (09:01)
[2021-02-18 09:08] VITALS: BP 121/64; PULSE 83; TEMP 98.1
[2021-02-18] MEDS: PANTOPRAZOLE 40 MG TABLET PO SCH (09:09)
[2021-02-18] MEDS: CEFTRIAXONE 2 GM in DEXTROSE 5%-WATER 100 ML IVPB SCH (09:09)
[2021-02-18] MEDS: FOLIC ACID 1 MG TABLET (FP) PO SCH (09:10)
[2021-02-18] MEDS: APIXABAN 5 MG TABLET PO SCH (09:10)
[2021-02-18] MEDS: LORATADINE 10 MG TABLET PO SCH (09:10)
[2021-02-18] MEDS: GABAPENTIN 100 MG CAPSULE PO SCH (09:10)
[2021-02-18] MEDS: amLODIPine BESYLATE 5 MG TABLET (FP) PO SCH (09:10)
[2021-02-18] MEDS: FERROUS SO4 325 MG TABLET (FP) PO SCH (09:10)
[2021-02-18] MEDS: DOXYCYCLINE HYCLATE 100 MG CAPSULE PO SCH (09:10)
[2021-02-18] MEDS ORDERED: PT OWN MED DRAWER 7, Y5N ONE ×2 (09:35→11:59)
[2021-02-18] MEDS: LEFLUNOMIDE 10 MG TABLET PO SCH (09:38)
[2021-02-18] MEDS: methylPREDNISolone 4 MG TABLET PO SCH (12:11)
== END 2021-02-18 12:30 | disposition home health service (06) | DRG 314 ==
LOC: JER 11:28 → JERBED 14:12 → J7W 02-12 13:57
PROVIDERS: ATTEND Internal Medicine
PROC: 0QBN0ZZ Excision of Right Metatarsal, Open Approach (ICD-10-PCS; 2021-02-12)
PROC: 0HRMXJZ Replacement of Right Foot Skin with Synthetic Substitute, External Approach (ICD-10-PCS; 2021-02-12)
PROC: 0JBQ0ZZ Excision of Right Foot Subcutaneous Tissue and Fascia, Open Approach (ICD-10-PCS; principal; 2021-02-12 10:30)
PROC: 0JHD3XZ Insertion of Tunneled Vascular Access Device into Right Upper Arm Subcutaneous Tissue and Fascia, Percutaneous Approach (ICD-10-PCS; 2021-02-17)
PROC: 05HB33Z Insertion of Infusion Device into Right Basilic Vein, Percutaneous Approach (ICD-10-PCS; 2021-02-17)
PROC: B51MZZA Fluoroscopy of Right Upper Extremity Veins, Guidance (ICD-10-PCS; 2021-02-17)
DX: E11.69 Type 2 diabetes mellitus with other specified complication (principal); L97.918 Non-pressure chronic ulcer of unspecified part of right lower leg with other specified severity; N18.9 Chronic kidney disease, unspecified; A49.01 Methicillin susceptible Staphylococcus aureus infection, unspecified site; M86.9 Osteomyelitis, unspecified; E11.51 Type 2 diabetes mellitus with diabetic peripheral angiopathy without gangrene; E11.22 Type 2 diabetes mellitus with diabetic chronic kidney disease; I10 Essential (primary) hypertension; E78.5 Hyperlipidemia, unspecified; K21.9 Gastro-esophageal reflux disease without esophagitis; E11.65 Type 2 diabetes mellitus with hyperglycemia; E11.40 Type 2 diabetes mellitus with diabetic neuropathy, unspecified; I25.10 Atherosclerotic heart disease of native coronary artery without angina pectoris; D72.829 Elevated white blood cell count, unspecified
CPT/HCPCS: 36415; 36569; 77001-TC-FY; 80048; 80053; 82962; 83735; 84100; 85025; 85027; 85610; 85730; 86850; 86900; 86901; 87040; 87070; 87075; 87186; 87205; 88305-TC; 88311-TC; 93005; 93010; 94760; 97116-GP; 97161-GP; 99285-25; C1751; C9803; J0131; U0003; U0005

== ENCOUNTER 2021-03-25 00:07 | Inpatient (IN) | payer OTHER ==
[2021-03-25] MEDS ORDERED: METOCLOPRAMIDE HCL INJECTION 10 MG/2 ML VIAL IVPB ONE (00:58)
[2021-03-25] MEDS ORDERED: FAMOTIDINE 20 MG/50 ML IVPB 20 MG/50 ML MG IVPB ONE ×2 (00:58→02:06)
[2021-03-25] MEDS ORDERED: ACETAMINOPHEN 1000 MG/100 ML VIAL (NON FORMULARY) IVPB ONE (00:58)
[2021-03-25] MEDS ORDERED: LACTATED RINGERS SOLUTION 1000 ML INFUS.BAG IV ONE (00:59)
[2021-03-25] MEDS ORDERED: ACETAMINOPHEN INJECTION 100 ML IVPB ONE (01:01)
[2021-03-25] MEDS ORDERED: METOCLOPRAMIDE HCL INJECTION 10 MG/2 ML VIAL ONE (01:02)
[2021-03-25 01:27] LABS: BASO % 0.5 % (0-2.0); HEMATOCRIT 33.9 % (35.4-49); HEMOGLOBIN 11.5 GM/dL (11.7-16.9); LYMPH % 18.5 % (8-40); MCH 28.9 pg (25.7-33.7); MCHC 33.9 g/dl (32.0-35.9); MEAN CELL VOLUME 85.1 fl (80-96); MEAN PLT VOLUME 8.1 fl (7.5-11.1); MONO % 8.9 % (3.8-10.2); NEUT % 67.1 % (42.8-82.8); PLATELET COUNT 244 10^3/uL (134-434); RBC 3.98 M/mm3 (4.00-5.60); RDW 16.3 % (11.9-15.9); WHITE BLOOD COUNT 9.3 K/mm3 (4.0-10.0)
[2021-03-25 01:33] LABS: INR 1.08 (0.83-1.09)
[2021-03-25 01:36] LABS: ACTIVATED PTT 34.2 SECONDS (25.2-36.5)
[2021-03-25 01:45] LABS: CHLORIDE 112 mmol/L (98-107); SODIUM 141 mmol/L (136-145)
[2021-03-25 01:47] LABS: ALBUMIN 3.2 g/dl (3.4-5.0); ANION GAP 9 MMOL/L (8-16); BLOOD UREA NITROGEN 9.9 mg/dL (7-18); CALCIUM 8.8 mg/dL (8.5-10.1); CO2 20 mmol/L (21-32)
[2021-03-25 01:48] LABS: GLUCOSE,RANDOM 213 mg/dL (74-106)
[2021-03-25 01:51] LABS: SGOT/AST 128 U/L (15-37); SGPT/ALT 356 U/L (13-61)
[2021-03-25 01:54] LABS: ALK PHOS 276 U/L (45-117)
[2021-03-25 02:16] LABS: LIPASE 6902 U/L (73-393)
[2021-03-25] MEDS ORDERED: PIPERACILLIN/TAZOB 4.5 GM 4.5 GM in DEXTROSE 5%-WATER 100 ML IVPB ONE (02:58)
[2021-03-25 03:03] LABS: CHOLESTEROL 113 mg/dL (50-200); TRIGLYCERIDES 123 mg/dL (0-150)
[2021-03-25 03:04] LABS: LDL CHOLESTEROL (ONLY SJRH) 53 mg/dL (5-100)
[2021-03-25 03:05] LABS: HDL CHOLESTEROL 14 mg/dL (40-60)
[2021-03-25] MEDS ORDERED: morphine CARPU-JECT 2 MG/1 ML DISP.SYRIN IVPUSH ONE (03:38)
[2021-03-25] MEDS ORDERED: MORPHINE SULFATE 2 MG/ML VIAL ONE (03:49)
[2021-03-25] MEDS ORDERED: PIPERACILLIN/TAZOB 4.5 GM 4.5 GM/100 ML BAG IVPB ONE (03:49)
[2021-03-25 04:13] LABS: URINE APPEARANCE CLEAR; URINE BILIRUBIN NEGATIVE (NEGATIVE); URINE COLOR YELLOW; URINE GLUCOSE (UA) NEGATIVE (NEGATIVE); URINE KETONE NEGATIVE (NEGATIVE); URINE LEUK ESTERASE NEGATIVE (NEGATIVE); URINE NITRITE NEGATIVE (NEGATIVE); URINE PROTEIN TRACE (NEGATIVE); URINE UROBILINOGEN 0.2 mg/dL (0.2-1.0)
[2021-03-25] MEDS ORDERED: KCL 10 MEQ IVPB 10 MEQ/100 ML INFUS.BAG IVPB ONE ×3 (05:04→08:28)
[2021-03-25] MEDS: KCL 10 MEQ IVPB 10 MEQ/100 ML INFUS.BAG IVPB SCH ×6 (05:15→21:54)
[2021-03-25] MEDS ORDERED: ONDANSETRON 4 MG/2 ML VIAL IVPUSH PRN (09:03)
[2021-03-25] MEDS ORDERED: morphine SULFATE 4 MG/ML VIAL IVPUSH PRN (09:03)
[2021-03-25] MEDS: LACTATED RINGERS SOLUTION 1,000 ML IV SCH (09:20)
[2021-03-25] MEDS ORDERED: PIPERACILLIN/TAZOB 3.375 GM 3.375 GM in DEXTROSE 5%-WATER - 50 ML IVPB SCH (10:00)
[2021-03-25] MEDS ORDERED: DEXTROSE 5%-WATER - 50 ML IVPB ONE ×2 (13:15→18:19)
[2021-03-25] MEDS ORDERED: PIPERACILLIN/TAZOBACTAM 3.375 GM VIAL IVPB ONE ×2 (13:15→18:19)
[2021-03-25] MEDS: MORPHINE SULFATE 2 MG/ML VIAL IVPUSH PRN ×2 (13:31→22:10)
[2021-03-25] MEDS: PIPERACILLIN/TAZOB 3.375 GM 3.375 GM in DEXTROSE 5%-WATER - 50 ML IVPB SCH ×2 (13:32→18:34)
[2021-03-25] MEDS: LOSARTAN POTASSIUM 25 MG TABLET PO SCH (13:33)
[2021-03-25] MEDS: predniSONE 5 MG TABLET (UD) PO SCH (13:33)
[2021-03-25] MEDS: INSULIN SLIDING SCALE (NOVOLOG) 1 VIAL SQ SCH ×3 (13:34→21:55)
[2021-03-25] MEDS: GABAPENTIN 100 MG CAPSULE PO SCH ×2 (13:34→21:54)
[2021-03-25] MEDS ORDERED: INSULIN (NOVOLOG) ASPART 100 UNITS/ML 10ML VIAL ONE (18:21)
[2021-03-26] MEDS ORDERED: PIPERACILLIN/TAZOBACTAM 3.375 GM VIAL IVPB ONE ×3 (00:53→16:24)
[2021-03-26] MEDS ORDERED: DEXTROSE 5%-WATER - 50 ML IVPB ONE ×3 (00:53→16:24)
[2021-03-26] MEDS: PIPERACILLIN/TAZOB 3.375 GM 3.375 GM in DEXTROSE 5%-WATER - 50 ML IVPB SCH ×3 (01:02→17:36)
[2021-03-26] MEDS: INSULIN SLIDING SCALE (NOVOLOG) 1 VIAL SQ SCH ×4 (06:18→21:26)
[2021-03-26] MEDS: LACTATED RINGERS SOLUTION 1,000 ML IV SCH ×2 (06:18→13:28)
[2021-03-26 08:13] LABS: HEMOGLOBIN 10.2 GM/dL (11.7-16.9); MCH 29.3 pg (25.7-33.7); MEAN CELL VOLUME 86.4 fl (80-96); MEAN PLT VOLUME 8.1 fl (7.5-11.1); PLATELET COUNT 238 10^3/uL (134-434); RBC 3.48 M/mm3 (4.00-5.60); RDW 16.1 % (11.9-15.9); WHITE BLOOD COUNT 9.4 K/mm3 (4.0-10.0)
[2021-03-26 08:36] LABS: CALCIUM 8.2 mg/dL (8.5-10.1)
[2021-03-26 08:37] LABS: BLOOD UREA NITROGEN 12.4 mg/dL (7-18)
[2021-03-26 08:39] LABS: CREATININE 0.8 mg/dL (0.55-1.3); PHOSPHOROUS 2.7 mg/dL (2.5-4.9)
[2021-03-26 08:43] LABS: BILIRUBIN,TOTAL 4.4 mg/dL (0.2-1)
[2021-03-26 08:47] LABS: TOT PROT 5.2 g/dl (6.4-8.2)
[2021-03-26 09:08] LABS: ALBUMIN 2.1 g/dl (3.4-5.0)
[2021-03-26] MEDS: LOSARTAN POTASSIUM 25 MG TABLET PO SCH (11:04)
[2021-03-26] MEDS: predniSONE 5 MG TABLET (UD) PO SCH (11:04)
[2021-03-26] MEDS: GABAPENTIN 100 MG CAPSULE PO SCH ×2 (11:04→21:00)
[2021-03-26] MEDS: MORPHINE SULFATE 2 MG/ML VIAL IVPUSH PRN (21:00)
[2021-03-26] MEDS ORDERED: INSULIN (NOVOLOG) ASPART 100 UNITS/ML 10ML VIAL ONE (21:22)
[2021-03-27] MEDS ORDERED: DEXTROSE 5%-WATER - 50 ML IVPB ONE ×3 (01:51→15:10)
[2021-03-27] MEDS ORDERED: PIPERACILLIN/TAZOBACTAM 3.375 GM VIAL IVPB ONE ×3 (01:51→15:10)
[2021-03-27] MEDS: PIPERACILLIN/TAZOB 3.375 GM 3.375 GM in DEXTROSE 5%-WATER - 50 ML IVPB SCH ×2 (01:55→09:56)
[2021-03-27] MEDS: LACTATED RINGERS SOLUTION 1,000 ML IV SCH (02:35)
[2021-03-27] MEDS: INSULIN SLIDING SCALE (NOVOLOG) 1 VIAL SQ SCH ×4 (06:07→22:21)
[2021-03-27 08:28] LABS: BASO % 1.5 % (0-2.0); EOS % 11.1 % (0-4.5); HEMATOCRIT 28.9 % (35.4-49); LYMPH % 19.9 % (8-40); MCH 29.9 pg (25.7-33.7); MCHC 34.7 g/dl (32.0-35.9); MEAN CELL VOLUME 86.2 fl (80-96); MEAN PLT VOLUME 8.2 fl (7.5-11.1); MONO % 8.2 % (3.8-10.2); NEUT % 59.3 % (42.8-82.8); PLATELET COUNT 272 10^3/uL (134-434); RBC 3.35 M/mm3 (4.00-5.60); RDW 15.7 % (11.9-15.9); WHITE BLOOD COUNT 9.1 K/mm3 (4.0-10.0)
[2021-03-27 08:41] LABS: CALCIUM 8.3 mg/dL (8.5-10.1); MAGNESIUM 1.7 mg/dL (1.8-2.4)
[2021-03-27 08:44] LABS: CREATININE 0.8 mg/dL (0.55-1.3)
[2021-03-27 08:46] LABS: TOT PROT 5.4 g/dl (6.4-8.2)
[2021-03-27 08:47] LABS: INR 1.06 (0.83-1.09)
[2021-03-27] MEDS: predniSONE 5 MG TABLET (UD) PO SCH (09:53)
[2021-03-27] MEDS: GABAPENTIN 100 MG CAPSULE PO SCH ×2 (09:53→21:19)
[2021-03-27] MEDS: LOSARTAN POTASSIUM 25 MG TABLET PO SCH (09:53)
[2021-03-27] MEDS: MORPHINE SULFATE 2 MG/ML VIAL IVPUSH PRN (09:56)
[2021-03-27] MEDS ORDERED: ROCURONIUM BROMIDE 50 MG/5 ML SYRINGE ONE (12:52)
[2021-03-27] MEDS ORDERED: PROPOFOL 20 ML ONE (12:52)
[2021-03-27] MEDS ORDERED: DEXAMETHASONE SOD PHOSPHATE 4 MG/1 ML VIAL ONE (12:52)
[2021-03-27] MEDS ORDERED: MIDAZOLAM HCL 2 MG/2 ML SINGLE DOSE VIAL ONE (12:53)
[2021-03-27] MEDS ORDERED: fentaNYL CITRATE 250 MCG/5 ML VIAL ONE (12:53)
[2021-03-27] MEDS ORDERED: SUCCINYLCHOLINE CHLORIDE 200 MG/10 ML SYRINGE ONE (12:53)
[2021-03-27] MEDS ORDERED: BUPIVACAINE HCL/PF 0.5% (5MG/ML) 10 ML VIAL IJ ONE (14:28)
[2021-03-27] MEDS ORDERED: oxyCODONE HCL 5 MG TABLET PO PRN (15:12)
[2021-03-27] MEDS ORDERED: ACETAMINOPHEN INJECTION 100 ML IVPB ONE (15:13)
[2021-03-27] MEDS: ACETAMINOPHEN 500 MG TABLET (FP) PO PRN (15:20)
[2021-03-27] MEDS ORDERED: ONDANSETRON 4 MG/2 ML VIAL IVPUSH PRN (15:49)
[2021-03-27] MEDS ORDERED: MORPHINE SULFATE 2 MG/ML VIAL IVPUSH PRN (15:49)
[2021-03-27] MEDS: SODIUM CHLORIDE 1,000 ML IV SCH (15:55)
[2021-03-27 16:11] VITALS: BMI 24.3
[2021-03-28] MEDS: SODIUM CHLORIDE 1,000 ML IV SCH (01:19)
[2021-03-28] MEDS: ACETAMINOPHEN 500 MG TABLET (FP) PO PRN (02:14)
[2021-03-28] MEDS: INSULIN SLIDING SCALE (NOVOLOG) 1 VIAL SQ SCH ×4 (06:13→21:32)
[2021-03-28] MEDS: oxyCODONE HCL 5 MG TABLET PO PRN ×3 (09:06→21:32)
[2021-03-28] MEDS: predniSONE 5 MG TABLET (UD) PO SCH (11:17)
[2021-03-28] MEDS: GABAPENTIN 100 MG CAPSULE PO SCH ×2 (11:18→21:31)
[2021-03-28] MEDS: LOSARTAN POTASSIUM 25 MG TABLET PO SCH (11:18)
[2021-03-28 14:14] LABS: HEMATOCRIT 24.3 % (35.4-49); HEMOGLOBIN 8.3 GM/dL (11.7-16.9); LYMPH % 10.9 % (8-40); MCH 29.9 pg (25.7-33.7); MCHC 34.3 g/dl (32.0-35.9); MEAN CELL VOLUME 87.3 fl (80-96); MEAN PLT VOLUME 7.9 fl (7.5-11.1); MONO % 8.5 % (3.8-10.2); NEUT % 68.6 % (42.8-82.8); PLATELET COUNT 239 10^3/uL (134-434); RBC 2.78 M/mm3 (4.00-5.60); RDW 15.6 % (11.9-15.9)
[2021-03-28] MEDS ORDERED: APIXABAN 5 MG TABLET PO ONE (14:14)
[2021-03-28 14:34] LABS: CHLORIDE 112 mmol/L (98-107); SODIUM 141 mmol/L (136-145)
[2021-03-28 14:37] LABS: BLOOD UREA NITROGEN 4.6 mg/dL (7-18); CO2 24 mmol/L (21-32); MAGNESIUM 1.1 mg/dL (1.8-2.4)
[2021-03-28 14:38] LABS: GLUCOSE,RANDOM 132 mg/dL (74-106)
[2021-03-28 14:40] LABS: SGOT/AST 58 U/L (15-37); SGPT/ALT 112 U/L (13-61)
[2021-03-28 14:41] LABS: CREATININE 0.6 mg/dL (0.55-1.3)
[2021-03-28 14:42] LABS: BILIRUBIN,TOTAL 1.8 mg/dL (0.2-1); TOT PROT 4.2 g/dl (6.4-8.2)
[2021-03-28 15:04] LABS: ALBUMIN 1.6 g/dl (3.4-5.0); ALK PHOS 230 U/L (45-117); ANION GAP 6 MMOL/L (8-16); CALCIUM 6.5 mg/dL (8.5-10.1)
[2021-03-28] MEDS: KCL 10 MEQ IVPB 10 MEQ/100 ML INFUS.BAG IVPB SCH ×3 (15:35→20:07)
[2021-03-28] MEDS ORDERED: MAGNESIUM SULF 50% (8.12 MEQ/2 ML-1 GM VIAL) IVPB ONE (18:31)
[2021-03-28] MEDS: CALCIUM (OYSTER SHELL) 500 MG TABLET (FP) PO SCH ×2 (18:54→21:30)
[2021-03-28] MEDS ORDERED: PT OWN MED DRAWER 7, Y5N ONE (18:57)
[2021-03-28] MEDS: APIXABAN 5 MG TABLET PO SCH (21:37)
[2021-03-29 01:59] LABS: MAGNESIUM 2.3 mg/dL (1.8-2.4)
[2021-03-29] MEDS: ACETAMINOPHEN 500 MG TABLET (FP) PO PRN ×2 (03:03→12:31)
[2021-03-29] MEDS: INSULIN SLIDING SCALE (NOVOLOG) 1 VIAL SQ SCH ×2 (06:03→12:18)
[2021-03-29] MEDS ORDERED: POTASSIUM CHLORIDE TABS 20 MEQ TABLET.ER (FP) PO ONE ×2 (07:09→08:10)
[2021-03-29 07:44] LABS: BASO % 1.2 % (0-2.0); EOS % 10.5 % (0-4.5); HEMOGLOBIN 9.6 GM/dL (11.7-16.9); LYMPH % 17.7 % (8-40); MCH 30.2 pg (25.7-33.7); MCHC 34.2 g/dl (32.0-35.9); MEAN CELL VOLUME 88.2 fl (80-96); MEAN PLT VOLUME 7.9 fl (7.5-11.1); MONO % 11.9 % (3.8-10.2); NEUT % 58.7 % (42.8-82.8); PLATELET COUNT 301 10^3/uL (134-434); RBC 3.17 M/mm3 (4.00-5.60); WHITE BLOOD COUNT 8.7 K/mm3 (4.0-10.0)
[2021-03-29 08:02] LABS: BLOOD UREA NITROGEN 7.2 mg/dL (7-18)
[2021-03-29 08:05] LABS: CREATININE 0.7 mg/dL (0.55-1.3)
[2021-03-29 08:06] LABS: BILIRUBIN,TOTAL 1.5 mg/dL (0.2-1)
[2021-03-29 08:07] LABS: TOT PROT 5.3 g/dl (6.4-8.2)
[2021-03-29 08:10] LABS: CALCIUM 7.8 mg/dL (8.5-10.1)
[2021-03-29 08:11] LABS: BLOOD UREA NITROGEN 6.3 mg/dL (7-18); CALCIUM 8.1 mg/dL (8.5-10.1)
[2021-03-29 08:14] LABS: BILIRUBIN,TOTAL 1.7 mg/dL (0.2-1); TOT PROT 5.3 g/dl (6.4-8.2)
[2021-03-29 08:15] LABS: CREATININE 0.7 mg/dL (0.55-1.3)
[2021-03-29] MEDS ORDERED: MAGNESIUM OXIDE 400 MG TABLET (FP) PO ONE (08:54)
[2021-03-29] MEDS: CALCIUM (OYSTER SHELL) 500 MG TABLET (FP) PO SCH (11:37)
[2021-03-29] MEDS: LOSARTAN POTASSIUM 25 MG TABLET PO SCH (11:39)
[2021-03-29] MEDS: predniSONE 5 MG TABLET (UD) PO SCH (11:39)
[2021-03-29] MEDS: GABAPENTIN 100 MG CAPSULE PO SCH (11:39)
[2021-03-29] MEDS: APIXABAN 5 MG TABLET PO SCH (11:39)
[2021-03-29 12:15] VITALS: BP 142/68; PULSE 77; TEMP 98
== END 2021-03-29 12:25 | disposition home or self-care (01) | DRG 263 ==
LOC: JER 00:07 → JERBED 02:44 → J7W 10:26
PROVIDERS: ADMIT Internal Medicine; ATTEND Nurse Practitioner Family
PROC: 0FT44ZZ Resection of Gallbladder, Percutaneous Endoscopic Approach (ICD-10-PCS; principal; 2021-03-27 11:00)
DX: K85.10 Biliary acute pancreatitis without necrosis or infection (principal); K80.12 Calculus of gallbladder with acute and chronic cholecystitis without obstruction; E10.52 Type 1 diabetes mellitus with diabetic peripheral angiopathy with gangrene; J84.9 Interstitial pulmonary disease, unspecified; E10.51 Type 1 diabetes mellitus with diabetic peripheral angiopathy without gangrene; J84.10 Pulmonary fibrosis, unspecified; K82.1 Hydrops of gallbladder; L97.519 Non-pressure chronic ulcer of other part of right foot with unspecified severity; E78.5 Hyperlipidemia, unspecified; I10 Essential (primary) hypertension; I71.4 Abdominal aortic aneurysm, without rupture; I87.2 Venous insufficiency (chronic) (peripheral); R63.0 Anorexia; R74.01 Elevation of levels of liver transaminase levels; K21.9 Gastro-esophageal reflux disease without esophagitis; E87.6 Hypokalemia
CPT/HCPCS: 36415; 71045-TC-FY; 74177-TC; 76705-TC; 80053; 80061; 81003; 82550; 82962; 83036; 83605; 83690; 83735; 84100; 84478; 84484; 85025; 85027; 85610; 85730; 87086; 93005; 93010; 94760; 97116-GP; 97161-GP; 99285-25; C9803; G0277; J0131; U0003; U0005

== ENCOUNTER 2022-06-11 10:18 | Emergency (ER) | payer MEDICARE, OTHER ==
[2022-06-11 10:35] VITALS: BP 145/68; PULSE 95; RESP 18; TEMP 98.5; BMI 24.0
[2022-06-11] MEDS ORDERED: AZITHROMYCIN 250 MG TABLET PO ONE (12:19)
[2022-06-11] MEDS ORDERED: AZITHROMYCIN 250 MG TABLET ONE (12:24)
== END 2022-06-11 12:30 | disposition home or self-care (01) ==
LOC: JER 10:18
DX: R05.9 Cough, unspecified (principal); M54.89 Other dorsalgia
CPT/HCPCS: 0241U-QW; 71046-TC-FY; 99284-25